=== PATIENT | male | born 1960 | race Caucasian/White ===

== ENCOUNTER 2022-10-22 12:09 | Outpatient (OUT) | payer OTHER, SELFPAY ==
[2022-10-23 04:38] LABS: PSA, Free 1.01 ng/mL; Prostate Specific Ag 5.2 ng/mL (0.0-4.0)
== END 2022-10-22 12:10 ==
LOC: LAB 12:13
PROVIDERS: PCP Family Medicine; Visit Provider Urology
DX: R97.20 Elevated prostate specific antigen [PSA] (principal)
CPT/HCPCS: 36415; 84153; 84154

== ENCOUNTER 2023-03-10 09:59 | Outpatient (OUT) | payer OTHER, SELFPAY ==
[2023-03-10 10:23] LABS: Basophils Percent Auto 0.5 % (0.2-2.0); Eosinophils Absolute Auto 0.1 10^3/uL (0.0-0.7); Eosinophils Percent Auto 1.6 % (0.9-7.0); Hematocrit 46.6 % (42.0-54.0); Hemoglobin 15.3 g/dL (14.0-18.0); Immature Granulocytes Abs Auto 0.05 10^3/uL (0.00-0.03); Immature Granulocytes Pct Auto 0.7 % (0.0-0.5); Lymphocytes Absolute Auto 2.6 10^3/uL (1.2-3.8); Lymphocytes Percent Auto 34.2 % (20.5-60.0); Mean Corpuscular HGB Conc 32.8 g/dL (29.9-35.2); Mean Corpuscular Hemoglobin 30.1 pg (25.9-34.0); Mean Corpuscular Volume 91.7 fL (80.0-94.0); Monocytes Absolute Auto 0.6 10^3/uL (0.3-0.8); Monocytes Percent Auto 8.4 % (1.7-12.0); Neutrophils Absolute Auto 4.1 10^3/uL (1.4-6.5); Neutrophils Percent Auto 54.6 % (43.0-75.0); Platelet Count 241 10^3/uL (150-450); Red Blood Count 5.08 10^6/uL (4.70-6.10); Red Cell Distribution Width 13.2 % (11.0-15.0); White Blood Count 7.5 10^3/uL (4.0-11.0)
[2023-03-10 10:38] LABS: Alanine Aminotransferase 18 U/L (16-63); Albumin Level 3.5 g/dL (3.4-5.0); Alkaline Phosphatase 78 U/L (46-116); Anion Gap 10.2; Aspartate Amino Transferase 12 U/L (15-37); BUN Creatinine Ratio 16.3; Bilirubin Total 0.7 mg/dL (0.2-1.0); Calcium 8.6 mg/dL (8.5-10.1); Carbon Dioxide 28.8 mmol/L (21.0-32.0); Chloride 105 mmol/L (98-107); Chol HDL Ratio 4.3; Cholesterol 260 mg/dL (<=200); Estimated GFR (African America >60 (>=60); Estimated GFR (Non-African Ame >60 (>=60); Globulin 3.6 g/dL; Glucose 93 mg/dL (74-106); HDL Cholesterol 61 mg/dL (40-60); Sodium 140 mmol/L (136-145); Total Protein 7.1 g/dL (6.4-8.2); Triglycerides 112 mg/dL (<=150); VLDL CHOLESTEROL 22.4 mg/dL
[2023-03-10 11:04] LABS: Estimated Average Glucose 100 mg/dL; Glycohemoglobin A1C 5.1 % (4.5-6.2)
[2023-03-10 11:11] LABS: Prostate Specific Antigen Scrn 6.68 ng/mL (<=4.00)
[2023-03-11 07:08] LABS: HIV Ab/p24 Ag Screen Non Reactive (Non Reactive)
[2023-03-11 09:12] LABS: HCV Ab Non Reactive (Non Reactive)
== END 2023-03-10 10:00 | disposition home or self-care (01) ==
LOC: LAB 10:01
PROVIDERS: PCP Nurse Practitioner Primary Care; Visit Provider Nurse Practitioner Primary Care
DX: Z00.00 Encounter for general adult medical examination without abnormal findings (principal); Z11.59 Encounter for screening for other viral diseases; Z13.6 Encounter for screening for cardiovascular disorders; Z12.5 Encounter for screening for malignant neoplasm of prostate
CPT/HCPCS: 36415; 80053; 80061; 83036; 85025; 86803; 87389; G0103

== ENCOUNTER 2023-05-12 11:46 | Outpatient (OUT) | payer OTHER, SELFPAY ==
--- OUTSIDE RECORDS SUMMARY | 2023-05-12 11:50 | XMS_ITS | CCD ---
Author Name Unknown Address [address] [place] [address] Organization [facility] Care Team Providers Care [employer] Player Name Role Phone Daniele Hernandez Primary Care Physician [phone] DO Daniele Hernandez Primary Care Provider MD Cora Lee Attending Provider House DO, Sr Daniele Levy Primary Care Provider [phone] MARY, SR DANIELE Levy Primary Care Unavailable BIANCA MEDRANO Admitting Unavailable BIANCA MEDRANO Attending Unavailable BIANCA MEDRANO Admitting Unavailable BIANCA MEDRANO Attending Unavailable HOUSE, DR FALCON Admitting Unavailable HOUSE, DR FALCON Attending Unavailable HOUSE, DR FALCON Primary Care Unavailable HOUSE, DR FALCON Consulting Unavailable HOUSE, DR FALCON Admitting Unavailable HOUSE, DR FALCON Attending Unavailable HOUSE, DR FALCON Primary Care Unavailable HOUSE, DR FALCON Consulting Unavailable LUE ., CORA Parish Admitting Unavailable LUE ., CORA Parish Attending Unavailable HOUSE, DR FALCON Primary Care Unavailable LUMichael .CORA Consulting Unavailable LUMichael ., CORA Parish Admitting Unavailable LUMichael ., CORA Parish Attending Unavailable HOUSE, DR FALCON Primary Care Unavailable LUMichael ., CORA Parish Consulting Unavailable Mary, Daniele Levy Primary Care Physician Cora Lee Attending Unavailable Cora Lee Attending Unavailable Cora Lee Attending Unavailable Allergies Allergy Classification Reported Allergen(s) Allergy Type Date of Onset Reaction(s) Facility (1 source) No Known Medication Allergies; Translations: [No Known Medication Allergies] Propensity to adverse reactions (disorder) [facility] Repository Medications Current Medications Medication Drug Class(es) Dates Sig (Normalized) Sig (Original) brexpiprazole 0.5 mg oral tablet (1 source) Atypical Antipsychotic Start: 03-08-2020 take 1 tablet by mouth once daily Brexpiprazole (Rexulti) 0.5 mg Tablet Active 0.5 MG PO Daily March 08, 2020 12:00am calcium chloride 0.0014 meq/ml / potassium chloride 0.004 meq/ml / sodium chloride 0.103 meq/ml / sodium lactate 0.028 meq/ml injectable solution (1 source) Start: 03-15-2022 lactated ringers infusion clopidogrel 75 mg oral tablet (8 sources) P2Y12 Platelet Inhibitor Start: 10-12-2017 clopidogrel 75 mg Tab Refills(s) 0 Start Date: 09/14/21 Status: Ordered levoFLOXacin 500 mg oral tablet (1 source) Quinolone Antimicrobial Start: 09-14-2021 End: 10-12-2021 take 1 tablet by mouth once daily Levaquin 500 mg Tab 500 mg = 1 tab(s), Oral, Daily, X 4 week(s), # 28 tab(s), Refills(s) 0, [facility]acy: [id number], 176, cm, 09/14/21 14:27:00 EDT, Height/Length Dosing, 109, kg, 09/14/21 14:27:00 EDT, Weight Dosing Start Date: 09/14/21 Stop Date: 10/12/21 Status: Ordered meloxicam 15 mg oral tablet (8 sources) Nonsteroidal Anti-inflammatory Drug Start: 03-08-2020 meloxicam 15 mg oral tablet Refills(s) 0 Start Date: 09/14/21 Status: Ordered phenylephrine hydrochloride 25 mg/ml ophthalmic solution (1 source) alpha-1 Adrenergic Agonist Start: 03-15-2022 phenylephrine (MYDFRIN) 2.5 % ophthalmic solution 1 drop proparacaine hydrochloride 5 mg/ml ophthalmic solution (1 source) Local Anesthetic Start: 03-15-2022 proparacaine (ALCAINE) 0.5 % ophthalmic solution 1 drop 1000 ml sodium chloride 9 mg/ml injection (10 sources) Start: 03-15-2022 IntraVENous, at 5-250 mL/hr, PRN, if patient receiving piggyback infusions and maintenance fluids are not ordered OR KVO fluids to protect IV site / prevent frequent line interruptions/ long duration, Starting on Tue03/15/22 at 1016 For piggyback infusion, administer at same rate as piggyback for a total of 25 mL. Enter 25 mL into dose field and piggyback rate into rate field of order. If piggyback is infusing at a rate less than 100 mL/hr, enter 25 mL into dose field and 100 mL/hr into rate field of order. For KVO fluids, enter rate of 20 mL/hr or less into rate field of order. Post-op Start: 03-15-2022 take 1 dose intraven ously twice daily 5-40 mL, IntraVENous, EVERY 12 HOURS SCHEDULED (2 times per day), First dose on Tue03/15/22 at 1045, Until Discontinued For Line Patency: Peripheral IV = 5 mL; Midline or Central Line = 10 mL/lumen. If following IV push medication, administer flush at same rate as the IV push. Flush volume is determined by type of infusion therapy being given. For non-viscous solutions use: Peripheral IV = 5 mL Midline or Central Line = 10 mL/lumen For viscous solutions (i.e. blood components, parenteral nutrition, contrast media, or after obtaining blood sample) use: Peripheral IV = 10 mL Midline or Central Line = 20 mL/lumen Post-op Start: 03-15-2022 take 5-40 mL intrave nously once as needed 5-40 mL, IntraVENous, PRN, Starting on Tue03/15/22 at 1016, Until Discontinued, Line Care, After every IV line use For Line Patency: Peripheral IV = 5 mL; Midline or Central Line = 10 mL/lumen. If following IV push medication, administer flush at same rate as the IV push. Flush volume is determined by type of infusion therapy being given. For non-viscous solutions use: Peripheral IV = 5 mL Midline or Central Line = 10 mL/lumen For viscous solutions (i.e. blood components, parenteral nutrition, contrast media, or after obtaining blood sample) use: Peripheral IV = 10 mL Midline or Central Line = 20 mL/lumen Post-op Start: 03-15-2022 0.9 % sodium c hloride infusion Start: 03-15-2022 sodium chlorid e flush 0.9 % injection 5-40 mL tamsulosin hydrochloride 0.4 mg oral capsule (1 source) alpha-Adrenergic Brittney Start: 11-18-2021 take 1 capsule by mouth once daily tamsulosin 0.4 mg Cap 0.4 mg = 1 cap(s), Oral, Daily, # 30 cap(s), Refills(s) 3, [facility]acy: [id number], 176, cm, 11/18/21 10:41:00 EDT, Height/Length Dosing, 109, kg, 11/18/21 10:41:00 EDT, Weight Dosing Start Date: 11/18/21 Status: Ordered tetracaine hydrochloride 5 mg/ml ophthalmic solution (1 source) Marge Local Anesthetic Start: 03-15-2022 tetracaine (TETRAVISC) 0.5 % ophthalmic solution 1 drop tropicamide 10 mg/ml ophthalmic solution (1 source) Anticholinergic Start: 03-15-2022 tropicamide (MYDRIACYL) 1 % ophthalmic solution 1 drop Completed/Discontinued Medications Medication Drug Class(es) Dates Sig (Normalized) Sig (Original) ARIPiprazole 10 mg oral tablet (1 source) Atypical Antipsychotic End: 03-11-2022 take 1 tablet by mouth once daily ARIPiprazole (ABILIFY) 10 MG tablet Take 10 mg by mouth daily 0 03/11/2022 Discontinued (Therapy completed) aspirin 81 mg chewable tablet (1 source) Platelet Aggregation Inhibitor, Nonsteroidal Anti-inflammatory Drug Start: 10-12-2017 End: 03-07-2020 take 81 mg by mouth once daily Aspirin Discontinued 81 MG PO Daily October 12, 2017 12:00am March 07, 2020 12:46pm atorvastatin 20 mg oral tablet (1 source) HMG-CoA Reductase Inhibitor Start: 10-12-2017 End: 03-07-2020 take 20 mg by mouth once daily Atorvastatin Discontinued 20 MG PO Daily October 12, 2017 12:00am March 07, 2020 12:46pm unsure of correct dose benztropine mesylate 1 mg oral tablet (1 source) Anticholinergic, Antihistamine End: 03-11-2022 take 1 tablet by mouth twice daily benztropine (COGENTIN) 1 MG tablet Take 1 mg by mouth 2 times daily 0 03/11/2022 Discontinued (Therapy completed) Problems Problem Classification Problem Date Documented Da te Episodic/Chronic Adjustment disorders (1 source) Adjustment disorder; Translations: [Adjustment disorder, unspecified] 03-07-2020 Chronic Cataract (5 sources) Senile combined form cataract of right eye; Translations: [Combined forms of age-related cataract, right eye] Onset: 09-03-2018 Resolved: 03-15-2022 Chronic Disorders usually diagnosed in infancy, childhood, or adolescence (1 source) Autistic disorder; Translations: [Autistic disorder] 03-07-2020 Chronic Genitourinary symptoms and ill-defined conditions (1 source) Nocturia; Translations: [Nocturia] Onset: 11-18-2021 Episodic Hyperplasia of prostate (6 sources) Benign prostatic hypertrophy without outflow obstruction; Translations: [Benign prostatic hyperplasia without lower urinary tract symptoms] Onset: 12-23-2021 Chronic Inflammatory conditions of male genital organs (1 source) Prostatitis; Translations: [Inflammatory disease of prostate, unspecified] Onset: 11-18-2021 Episodic Other aftercare (5 sources) Long-term current use of drug therapy; Translations: [nursing home (current) use of antithrombotics/ant iplatelets] Onset: 09-14-2021 Episodic Other screening for suspected conditions (not mental disorders or infectious disease) (12 sources) Raised prostate specific antigen; Translations: [Elevated prostate specific antigen [PSA]] Onset: 09-14-2021 Episodic Residual codes; unclassified (5 sources) Family history of cancer; Translations: [Family history of malignant neoplasm of prostate] Onset: 09-14-2021 Episodic Residual codes; unclassified (6 sources) Family history of prostate cancer 09-14-2021 Episodic Residual codes; unclassified (1 source) Family history of malignant neoplasm of prostate; Translations: [FAMILY HX MALIG NEOPLASM PROSTATE] Onset: 04-26-2022 Episodic Unclassified (6 sources) Patient encounter status 09-14-2021 Results Test Name Value Interpretation Reference Range Facility [facility] 11-07-2022 Lab Reports [id number] #1.00CD:127 Normal [facility] Urology Office/Clinic Noteon 10-28-2022 Urology Office/Clinic Note Chief Complaint Pt is here for 6 month w/ PSA HPI Staff Robert is a 62 y.o. male here for 6 month follow up w/ PSA F/T. Previous DX: Elevated PSA, BPH & Family Hx of Prostate Cancer (grandfather) *No Urology Medications. Current PSA 5.2 done on 10/22/22. Previous PSA 5.3 & 14% done on 04/22/22. Dysuria: denies Incomplete bladder emptying: denies Hematuria: denies Frequency: denies Urgency: denies Nocturia: denies Stream: steady stream Leaking: denies Post void dripping: denies Wearing pads/ Depends: denies Urge incontinence: denies Stress incontinence: denies Incontinence without Sensory Awareness: denies Abdominal pain: denies Flank pain: denies Sexual complaints: _ History of Present Illness Tests reviewed: reviewed UA, PSA. I have reviewed the previous health record information and history for this patient from Dr. Lee. I have reviewed and verified the staff HPI to be accurate for this encounter. There have been no associated fever, chills, flank pain, or blood in the urine. Denies any urinary infections since last encounter. Review of Systems PHQ Score Initial Depression Screen Score: 0 ROS - Provider Constitutional: denies weight loss, denies hot flashes. Eyes: denies eye problems. Gastrointestinal: denies nausea, denies vomiting. Cardiovascular: denies chest pain or angina. Integumentary: no dryness Musculoskeletal: denies musculoskeletal symptoms. ENMT: denies otolaryngeal symptoms. Respiratory: no shortness of breath. Heme/Lymph: denies easy bleeding tendency, denies easy bruising tendency. Psychiatric: no confusion, no anxiety. Genitourinary: See HPI. Physical Exam Vitals & Measurements HR: 75(Peripheral) BP: 125/70 HT: 69 in HT: 176 cm WT: 109 kg WT: 239.8 lb BMI: 35.19 General Appearance: alert, no distress, well nourished, well developed male. Genitourinary: Flank Pain: none. Bladder: nonpalpable. Prostate: Mild tenderness. Moderately enlarged, smooth, symmetric, no firm nodules. Assessment/Plan Patient presented today for follow up of elevated PSA. Due to patient's stable PSA, I will order repeat in 6 mths for continued surveillance. 1. Elevated PSA (R97.20: Elevated prostate specific antigen [PSA]) PSA: 08/14/18 - 4.75 08/20/21 - 7.90 10/27/21 - 4.9 & 13.5% free (s/p ABX for prostatitis) 04/22/22 - 5.3 & 14% 10/22/22 - 5.2, no % free calculated yet, waiting on lab [facility] 09/14/21 - 48% Likelihood of prostate cancer upon bx and 21% likelihood of detecting Justine score >7 cancer. MRI of prostate 12/07/21 - No suspicious lesion. Prior prostatitis. BPH. Volume 54 mL. PSA overall elevated but remains stable. Again reviewed options cont monitoring vs systemic bx. Discussed proceeding with bx regardless of MRI if PSA were to cont to rise. Pt elects for monioring. EDMAR today - benign Follow up 6 mos PSA FT or sooner if needed. Pt understands and agrees with plan. -If PSA remains stable at next visit, can stretch out frequency to q1yr. 2. BPH (benign prostatic hyperplasia) (N40.0: Benign prostatic hyperplasia without lower urinary tract symptoms) UA today negative for blood and infection. IPSS 0 (2). Not taking any BPH meds. No urinary complaints or UTIs. Declines further eval/tx at this time 3. Family hx of prostate cancer (Z80.42: Family history of malignant neoplasm of prostate) Grandfather diagnosed at age 80. 4. Antiplatelet or antithrombotic long-term use (Z79.02: manager intermediate (current) use of antithrombotics/anti platelets) Plavix, hx 2v CABG 5 years ago. Elevated risk of periop complications. Needs medical/cardiac clearance for future procedures. Follow-up With When Contact Information Jesus ROD, Cora Gupta, URL, URO Additional Instructions: 6 mos PSA FT Patient Education Prostate Cancer Screening I, Loraine Pedraza, personally scribed for Dr. Lee on 10/27/2022 10:01:06. . Documentation recorded by the scribe, Loraine Pedraza, accurately reflects the services(s) I performed and decisions made by me. Authenticated by Dr. Lee on 10/27/2022 23:12:23. Problem List/Past Medical History Ongoing Antiplatelet or antithrombotic long-term use BPH (benign prostatic hyperplasia) Elevated PSA Family hx of prostate cancer Historical No qualifying data Procedure/Surgical History Appendectomy, Cataract extraction, Placement of stent in cardiac conduit, Tonsillectomy. Medications clopidogrel 75 mg Tab meloxicam 15 mg oral tablet Allergies No Known Medication Allergies Social History Alcohol Beer, 1-2 times per month, 09/14/2021 Tobacco Never (less than 100 in lifetime) Tobacco Use:. Never Smokeless Tobacco Use:., 04/28/2022 Family History Diabetes: Mother. Lung cancer: Father. Immunizations Vaccine Date Status influenza virus vaccine, inactivated 04/01/2022 Recorded SARS-CoV-2 (COVID-19) mRNA-1273 vaccine 04/29/2021 Recorded influenza virus vaccine, (more content not included)... Normal [facility] Comment on above: Result Comment: Elec tronically Signed By: Cora Lee MD\.br\Date and Time Signed: 10/27/22 23:13 EDT\.br\Electronically Co-Signed By: Loraine Pedraza\.br\Date and Time Co-Signed: 10/27/22 10:01 EDT Patient Educationon 10-28-19 Patient Education Oncology Prostate Cancer Screening Prostate cancer screening is testing that is done to check for the presence of prostate cancer in men. The prostate gland is a walnut-sized gland that is located below the bladder and in front of the rectum in males. The function of the prostate is to add fluid to semen during ejaculation. Prostate cancer is one of the most common types of cancer in men. Who should have prostate cancer screening? Screening recommendations vary based on age and other risk factors, as well as between the professional organizations who make the recommendations. In general, screening is recommended if: ? You are age 50 to 70 and have an average risk for prostate cancer. You should talk with your health care provider about your need for screening and how often screening should be done. Because most prostate cancers are slow growing and will not cause , screening in this age group is generally reserved for men who have a 10- to 15-year life expectancy. ? You are younger than age 50, and you have these risk factors: ? Having a father, brother, or uncle who has been diagnosed with prostate cancer. The risk is higher if your family member's cancer occurred at an early age or if you have multiple family members with prostate cancer at an early age. ? Being a male who is Black or is of Jagjit or sub-Saharan descent. In general, screening is not recommended if: ? You are younger than age 40. ? You are between the ages of 40 and 49 and you have no risk factors. ? You are 70 years of age or older. At this age, the risks that screening can cause are greater than the benefits that it may provide. If you are at high risk for prostate cancer, your health care provider may recommend that you have screenings more often or that you start screening at a younger age. How is screening for prostate cancer done? The recommended prostate cancer screening test is a blood test called the prostate-specific antigen (PSA) test. PSA is a protein that is made in the prostate. As you age, your prostate naturally produces more PSA. Abnormally high PSA levels may be caused by: ? Prostate cancer. ? An enlarged prostate that is not caused by cancer (benign prostatic hyperplasia, or BPH). This condition is very common in older men. ? A prostate gland infection (prostatitis) or urinary tract infection. ? Certain medicines such as male hormones (like testosterone) or other medicines that raise testosterone levels. A rectal exam may be done as part of prostate cancer screening to help provide information about the size of your prostate gland. When a rectal exam is performed, it should be done after the PSA level is drawn to avoid any effect on the results. Depending on the PSA results, you may need more tests, such as: ? A physical exam to check the size of your prostate gland, if not done as part of screening. ? Blood and imaging tests. ? A procedure to remove tissue samples from your prostate gland for testing (biopsy). This is the only way to know for certain if you have prostate cancer. What are the benefits of prostate cancer screening? ? Screening can help to identify cancer at an early stage, before symptoms start and when the cancer can be treated more easily. ? There is a small chance that screening may lower your risk of dying from prostate cancer. The chance is small because prostate cancer is a slow-growing cancer, and most men with prostate cancer from a different cause. What are the risks of prostate cancer screening? The main risk of prostate cancer screening is diagnosing and treating prostate cancer that would never have caused any symptoms or problems. This is called overdiagnosisand overtreatment. PSA screening cannot tell you if your PSA is high due to cancer or a different cause. A prostate biopsy is the only procedure to diagnose prostate cancer. Even the results of a biopsy may not tell you if your cancer needs to be treated. Slow-growing prostate cancer may not need any treatment other than monitoring, so diagnosing and treating it may cause unnecessary stress or other side effects. Questions to ask your health care provider ? When should I start prostate cancer screening? ? What is my risk for prostate cancer? ? How often do I need screening? ? What type of screening tests do I need? ? How do I get my test results? ? What do my results mean? ? Do I need treatment? Where to find more information ? The [place] [employer]: www.cancer.org ? [place] [employer]: www.auanet.org Contact a health care provider if: ? You have difficulty urinating. ? You have pain when you urinate or ejaculate. ? You have blood in your urine or semen. ? You have pain in your back or in the area of your prostate. Summary ? Prostate cancer is a common type of cancer in men. The prostate gland is located below the bladder and in front of the rectum. This gland adds flu (more content not included)... Normal [facility] Screenson 10-27-2022 Screens [id number]#1.00CD:127 Normal [facility] Screens [id number]#1.00CD:127 Normal [facility] CBC AUTO DIFFon 07-13-2022 BASO # 0.0 103/ul Normal 0.0-0.1 [facility] Comment on above: Performed By: #### C BC #### [facility] [address] [place], [place] [address] Dr. Jurgen Nunn Basophils/100 WBC (Bld) 0.6 % Normal 0.2-2.0 [facility] Comment on above: Performed By: #### C BC #### [facility] [address] [place], [place] [address] Dr. Jurgen Nunn EO # 0.1 103/ul Normal 0.0-0.7 [facility] Comment on above: Performed By: #### C BC #### [facility] [address] [place] [address] [address] Jurgen Nunn Eosinophils/100 WBC (Bld) 1.4 % Normal 0.9-7.0 [facility] Comment on above: Performed By: #### C BC #### [facility] [address] [place] [address] [address] Jurgen Nunn Erythrocyte distribution width (RBC) [Ratio] 13.3 % Normal 11.0-15.0 [facility] Comment on above: Performed By: #### C BC #### [facility] [address] [place] [address] Dr. Jurgen Nunn Hematocrit (Bld) [Volume fraction] 49.5 % Normal 42.0-54.0 [facility] Comment on above: Performed By: #### C BC #### [facility] [address] [place] [address] Dr. Jurgen Nunn Hemoglobin (Bld) [Mass/Vol] 16.7 g/dL Normal 14.0-18.0 [facility] Comment on above: Performed By: #### C BC #### [facility] [address] [place] [address] Dr. Jurgen Nunn IG # 0.05 10e3/ul Critically high 0.00-0.03 [facility] Comment on above: Performed By: #### C BC #### [facility] [address] [place] [address] Dr. Jurgen Nunn IG % 0.8 % Critically high 0.0-0.5 [facility] Comment on above: Performed By: #### C BC #### [facility] [address] [place] [address] Dr. Jurgen Nunn LYMPH # 2.2 103/ul Normal 1.2-3.8 [facility] Comment on above: Performed By: #### C BC #### [facility] [address] [place] [address] Dr. Jurgen Nunn Lymphocytes/100 WBC (Bld) 34.1 % Normal 20.5-60.0 [facility] Comment on above: Performed By: #### C BC #### [facility] [address] [place] [address] Dr. Jurgen Nunn MANUAL DIFF REQ NO Normal [facility] Comment on above: Performed By: #### C BC #### [facility] [address] [place] [address] Dr. Jurgen Nunn MCH (RBC) [Entitic mass] 29.9 pg Normal 25.9-34.0 [facility] Comment on above: Performed By: #### C BC #### [facility] [address] [place] [address] Dr. Jurgen Nunn MCHC (RBC) [Mass/Vol] 33.7 g/dL Normal 29.9-35.2 [facility] Comment on above: Performed By: #### C BC #### [facility] [address] [place] [address] Dr. Jurgen Nunn MCV (RBC) [Entitic vol] 88.7 fL Normal 80.0-94.0 [facility] Comment on above: Performed By: #### C BC #### [facility] [address] [place] [address] Dr. Jurgen Nunn MONO # 0.6 103/ul Normal 0.3-0.8 [facility] Comment on above: Performed By: #### C BC #### [facility] [address] [place] [address] Dr. Jurgen Nunn Monocytes/100 WBC (Bld) 8.8 % Normal 1.7-12.0 [facility] Comment on above: Performed By: #### C BC #### [facility] [address] [place] [address] Dr. Jurgen Nunn NEUT # 3.5 103/ul Normal 1.4-6.5 [facility] Comment on above: Performed By: #### C BC #### [facility] [address] [place] [address] Dr. Jurgen Nunn Neutrophils/100 WBC (Bld) 54.3 % Normal 43.0-75.0 [facility] Comment on above: Performed By: #### C BC #### [facility] [address] [place] [address] Dr. Jurgen Nunn Platelet mean volume (Bld) [Entitic vol] 10.1 fL Normal 9.5-13.5 [facility] Comment on above: Performed By: #### C BC #### [facility] [address] [place] [address] Dr. Jurgen Nunn PLT 227 103/ul Normal 150-450 [facility] Comment on above: Performed By: #### C BC #### [facility] [address] [place] [address] Dr. Jurgen Nunn RBC 5.58 106/ul Normal 4.70-6.10 [facility] Comment on above: Performed By: #### C BC #### [facility] [address] [place] [address] Dr. Jurgen Nunn WBC 6.5 103/ul Normal 4.0-11.0 [facility] Comment on above: Performed By: #### C BC #### [facility] [address] [place] [address] Dr. Jurgen Nunn PROF 14(COMP METB)on 023 Albumin [Mass/Vol] 3.7 g/dL Normal 3.4-5.0 [facility] Comment on above: Performed By: #### T 4, CMP, TSH #### [facility] [address] [place] [address] Dr. Jurgen Nunn Albumin/Globulin [Mass ratio] 1.0 {ratio} Normal [facility] Comment on above: Performed By: #### T 4, CMP, TSH #### [facility] [address] [place] [address] Dr. Jurgen Nunn ALP [Catalytic activity/Vol] 81 U/L Normal 46-116 [facility] Comment on above: Performed By: #### T 4, CMP, TSH #### [facility] [address] [place] [address] Dr. Jurgen Nunn ALT [Catalytic activity/Vol] 21 U/L Normal 16-63 [facility] Comment on above: Performed By: #### T 4, CMP, TSH #### [facility] [address] [address] [address] Jurgen Nunn Anion gap [Moles/Vol] 9.4 mmol/L Normal [facility] Comment on above: Performed By: #### T 4, CMP, TSH #### [facility] [address] [address] [address] Jurgen Nunn AST [Catalytic activity/Vol] 18 U/L Normal 15-37 [facility] Comment on above: Performed By: #### T 4, CMP, TSH #### [facility] [address] [address] [address] Jurgen Nunn Bilirubin [Mass/Vol] 0.6 mg/dL Normal 0.2-1.0 [facility] Comment on above: Performed By: #### T 4, CMP, TSH #### [facility] [address] [place] [address] Dr. Jurgen Nunn Calcium [Mass/Vol] 9.0 mg/dL Normal 8.5-10.1 [facility] Comment on above: Performed By: #### T 4, CMP, TSH #### [facility] [address] [address] [address] Jurgen Nunn Chloride [Moles/Vol] 107 mmol/L Normal 98-107 [facility] Comment on above: Performed By: #### T 4, CMP, TSH #### [facility] [address] [address] [address] Jurgen Nunn CO2 [Moles/Vol] 29.0 mmol/L Normal 21.0-32.0 [facility] Comment on above: Performed By: #### T 4, CMP, TSH #### [facility] [address] [address] [address] Jurgen Nunn Creatinine [Mass/Vol] 1.02 mg/dL Normal 0.70-1.30 [facility] Comment on above: Performed By: #### T 4, CMP, TSH #### [facility] [address] [address] [address] Jurgen Nunn EGFR-AF TRINIDADIAN >60 Normal >=60 [facility] Comment on above: Performed By: #### T 4, CMP, TSH #### [facility] [address] [address] [address] Jurgen Nunn EGFR-NON AF TRINIDADIAN >60 Normal >=60 [facility] Comment on above: Performed By: #### T 4, CMP, TSH #### [facility] [address] [address] [address] Jurgen Nunn Globulin (S) [Mass/Vol] 3.6 g/dL Normal [facility] Comment on above: Performed By: #### T 4, CMP, TSH #### [facility] [address] [place] [address] Dr. Jurgen Nunn Glucose [Mass/Vol] 100 mg/dL Normal 74-106 [facility] Comment on above: Performed By: #### T 4, CMP, TSH #### [facility] [address] [place] [address] Dr. Jurgen Nunn Potassium [Moles/Vol] 4.4 mmol/L Normal 3.5-5.1 [facility] Comment on above: Performed By: #### T 4, CMP, TSH #### [facility] [address] [place] [address] Dr. Jurgen Nunn Protein [Mass/Vol] 7.3 g/dL Normal 6.4-8.2 [facility] Comment on above: Performed By: #### T 4, CMP, TSH #### [facility] [address] [place] [address] Dr. Jurgen Nunn Sodium [Moles/Vol] 141 mmol/L Normal 136-145 [facility] Comment on above: Performed By: #### T 4, CMP, TSH #### [facility] [address] [place] [address] Dr. Jurgen Nunn Urea nitrogen [Mass/Vol] 13.0 mg/dL Normal 7.0-18.0 [facility] Comment on above: Performed By: #### T 4, CMP, TSH #### [facility] [address] [place] [address] Dr. Jurgen Nunn Urea nitrogen/Creatinine [Mass ratio] 12.7 mg/mg Normal [facility] Comment on above: Performed By: #### T 4, CMP, TSH #### [facility] [address] [address] [address] Jurgen Nunn T4on 07-13-2022 T4 [Mass/Vol] 9.50 ug/dL Normal 4.50-12.[address] [facility] Comment on above: Performed By: #### T 4, CMP, TSH #### [facility] [address] [address] [address] Jurgen Nunn TSHon 07-13-2022 TSH 1.890 uIU/mL Normal 0.358-3.[address] [facility] Comment on above: Performed By: #### T 4, CMP, TSH #### [facility] [address] [address] [address] Jurgen Nunn PSA, FREE AND TOTAL RATIOon 04-23-2022 % Free PSA 14.0 % Normal [facility] Comment on above: Result Comment: The table below lists the probability of prostate cancer for men with non-suspicious EDMAR results and total PSA between 4 and 10 ng/mL, by patient age (Marcell et al, JAROD 1998, 279:1542). % Free PSA 50-64 yr 65-75 yr 0.00-10.00% 56% 55% 10.01-15.00% 24% 35% 15.01-20.00% 17% 23% 20.01-25.00% 10% 20% >25.00% 5% 9% Please note: Marcell et al did not make specific recommendations regarding the use of percent free PSA for any other population of men. Performed By: #### P SAFREE #### [facility] [address] [address] [address] Jurgen Nunn Prostate specific Ag [Mass/Vol] 5.3 ng/mL Critically high 0.0-4.0 [facility] Comment on above: Result Comment: Sylvester rodriguez ECLIA methodology. . According to the [place] [employer], Serum PSA should decrease and remain at undetectable levels after radical prostatectomy. The AUA defines biochemical recurrence as an initial PSA value 0.2 ng/mL or greater followed by a subsequent confirmatory PSA value 0.2 ng/mL or greater. Values obtained with different assay methods or kits cannot be used interchangeably. Results cannot be interpreted as absolute evidence of the presence or absence of malignant disease. Performed By: #### P SAFREE #### [facility] [address] [address] [address] Jurgen Nunn PSA, Free 0.74 ng/mL Normal N/A [facility] Comment on above: Result Comment: Sylvester LOWE methodology. Performed By: #### P SAFREE #### [facility] [address] [address] [address] Jurgen Nunn MR prostate wo/w conon 12-10 MR prostate wo/w con [facility] [place] [address] MRI Report Signed Patient: Robert Smiley MR#: [id number] : 1960 Acct:[id number] Age/Sex: 61 / M ADM Date: 12/07/21 Loc: Room: Type: [facility] Attending Dr: Cora Lee MD Copies to: Cora Lee MD Ordering Provider: Cora Lee MD Date of Service: 12/07/21 MR/MR prostate wo/w con: Z80.42,N41.9,R97.20 EXAMINATION: MR prostate wo/w con HISTORY: Elevated PSA. COMPARISON: NONE TECHNIQUE: Multiparametric imaging of the prostate gland was performed with IV contrast. FINDINGS: Prostate Dimensions: 4.8 x 3.9 x 5.5 cm. Prostate Volume: 54 mL Peripheral Zone: Heterogenous inT2 signal suggestive of prior prostatitis. No suspicious T2 or ADC map abnormality is identified to suggest prostate malignancy. Central/Transitional Zone: BPH changes. Seminal Vesicles: Unremarkable Neurovascular bundles: Unremarkable. Lymphadenopathy: No evidence of lymphadenopathy. Bladder: No focal lesion. Bowel: The visualized bowel is without acute abnormality. Peritoneal Cavity: No free fluid. Bones: No suspicious bony lesion. MR/MR prostate wo/w con IMPRESSION: No MRI evidence of prostate malignancy. BPH changes. Impression dictated by: Bjorn Putnam Jr., D.O.12/10/2021 11:14 AM Dictation Location: [place] [address] Transcribed By: [facility] [place] 12/10/21 1114 Dictated By: Bjorn Putnam Jr, DO 12/10/21 1109 Signed By: 12/10/21 1114 [facility] Creatinine (Bld) [Mass/Vol]O rdered By: Cora Lee on 12-07-2021 Creatinine [Mass/Vol] 1.0 mg/dL 0.6-1.3 [facility] Comment on above: ER/ESD physician is notified/shown all ISTAT results. Critical values may be confirmed by laboratory testing if deemed necessary by ER attending doctor. ISTAT XRay CREon 12-07-2021 Creatinine [Mass/Vol] 1.0 mg/dL Normal 0.6-1.3 [facility] Comment on above: Result Comment: ER/E SD physician is notified/shown all ISTAT results. Critical values may be confirmed by laboratory testing if deemed necessary by ER attending doctor. Performed By: #### I SCRE #### [address] Point of Care testing , ISTAT GFR ( > 60 Normal [facility] Comment on above: Result Comment: GFR estimated reference range: According to KDOQI guidelines, <60 ml/min/1.73m2 is sufficient to diagnose a patient with chronic kidney disease. PERFORMED BY: [place] [address] PATHOLOGIST [employer] ANNE MCFARLAND M.D. Performed By: #### I SCRE #### [address] Point of Care testing , ISTAT GFR (Non- Am > 60 [facility] Comment on above: Performed By: #### I SCRE #### [address] Point of Care testing , No Panel InformationOrdered By: Cora Lee on 12-07-2021 POC Estimated GFR > 60 [facility] Comment on above: GFR estimated refere nce range: According to KDOQI guidelines, <60 ml/min/1.73m2 is sufficient to diagnose a patient with chronic kidney disease. POC Estimated GFR Non- Amer > 60 [facility] PSA, FREE AND TOTAL RATIOon 10-29-2021 % Free PSA 13.5 % Normal [facility] Comment on above: Result Comment: The table below lists the probability of prostate cancer for men with non-suspicious EDMAR results and total PSA between 4 and 10 ng/mL, by patient age (Marcell et al, JAROD 1998, 279:1542). % Free PSA 50-64 yr 65-75 yr 0.00-10.00% 56% 55% 10.01-15.00% 24% 35% 15.01-20.00% 17% 23% 20.01-25.00% 10% 20% >25.00% 5% 9% Please note: Marcell et al did not make specific recommendations regarding the use of percent free PSA for any other population of men. Performed By: #### P SAFREE #### [facility] [address] [address] [address] Jurgen Nunn Prostate specific Ag [Mass/Vol] 4.9 ng/mL Critically high 0.0-4.0 [facility] Comment on above: Result Comment: Roch michael ECLIA methodology. . According to the [place] [employer], Serum PSA should decrease and remain at undetectable levels after radical prostatectomy. The AUA defines biochemical recurrence as an initial PSA value 0.2 ng/mL or greater followed by a subsequent confirmatory PSA value 0.2 ng/mL or greater. Values obtained with different assay methods or kits cannot be used interchangeably. Results cannot be interpreted as absolute evidence of the presence or absence of malignant disease. Performed By: #### P SAFREE #### [facility] [address] [address] [address] Jurgen Nunn PSA, Free 0.66 ng/mL Normal N/A [facility] Comment on above: Result Comment: Roch e ECLIA methodology. Performed By: #### P SAFREE #### [facility] [address] [address] [address] Jurgen Nunn CBC AUTO DIFFon 08-20-2021 BASO # 0.0 103/ul Normal 0.0-0.1 [facility] Comment on above: Performed By: #### C BC #### [facility] [address] [address] [address] Jurgen Nunn Basophils/100 WBC (Bld) 0.4 % Normal 0.2-2.0 [facility] Comment on above: Performed By: #### C BC #### [facility] [address] [address] [address] Jurgen Nunn EO # 0.1 103/ul Normal 0.0-0.7 [facility] Comment on above: Performed By: #### C BC #### [facility] [address] [address] [address] Jurgen Nunn Eosinophils/100 WBC (Bld) 1.5 % Normal 0.9-7.0 [facility] Comment on above: Performed By: #### C BC #### [facility] [address] [address] [address] Jurgen Nunn Erythrocyte distribution width (RBC) [Ratio] 13.3 % Normal 11.0-15.0 [facility] Comment on above: Performed By: #### C BC #### [facility] [address] [address] [address] Jurgen Nunn Hematocrit (Bld) [Volume fraction] 49.4 % Normal 42.0-54.0 [facility] Comment on above: Performed By: #### C BC #### [facility] [address] [address] [address] Jurgen Nunn Hemoglobin (Bld) [Mass/Vol] 16.7 g/dL Normal 14.0-18.0 [facility] Comment on above: Performed By: #### C BC #### [facility] [address] [address] [address] Jurgen Nunn IG # 0.06 10e3/ul Critically high 0.00-0.03 [facility] [place] Comment on above: Performed By: #### C BC #### [facility] [address] [address] [address] Jurgen Nunn IG % 0.8 % Critically high 0.0-0.5 [facility] Comment on above: Performed By: #### C BC #### [facility] [address] [place] [address] Dr. Jurgen Nunn LYMPH # 2.5 103/ul Normal 1.2-3.8 [facility] Comment on above: Performed By: #### C BC #### [facility] [address] [place] [address] Dr. Jurgen Nunn Lymphocytes/100 WBC (Bld) 35.1 % Normal 20.5-60.0 [facility] Comment on above: Performed By: #### C BC #### [facility] [address] [place] [address] Dr. Jurgen Nunn MANUAL DIFF REQ NO Normal [facility] Comment on above: Performed By: #### C BC #### [facility] [address] [place] [address] Dr. Jurgen Nunn MCH (RBC) [Entitic mass] 30.0 pg Normal 25.9-34.0 [facility] Comment on above: Performed By: #### C BC #### [facility] [address] [place] [address] Dr. Jurgen Nunn MCHC (RBC) [Mass/Vol] 33.8 g/dL Normal 29.9-35.2 [facility] Comment on above: Performed By: #### C BC #### [facility] [address] [place] [address] Dr. Jurgen Nunn MCV (RBC) [Entitic vol] 88.7 fL Normal 80.0-94.0 [facility] Comment on above: Performed By: #### C BC #### [facility] [address] [place] [address] Dr. Jurgen Nunn MONO # 0.6 103/ul Normal 0.3-0.8 [facility] Comment on above: Performed By: #### C BC #### [facility] [address] [place] [address] Dr. Jurgen Nunn Monocytes/100 WBC (Bld) 7.7 % Normal 1.7-12.0 [facility] Comment on above: Performed By: #### C BC #### [facility] [address] [address] [address] Jurgen Nunn NEUT # 3.9 103/ul Normal 1.4-6.5 [facility] Comment on above: Performed By: #### C BC #### [facility] [address] [address] [address] Jurgen Nunn Neutrophils/100 WBC (Bld) 54.5 % Normal 43.0-75.0 [facility] Comment on above: Performed By: #### C BC #### [facility] [address] [address] [address] Jurgen Nunn Platelet mean volume (Bld) [Entitic vol] 10.6 fL Normal 9.5-13.5 [facility] Comment on above: Performed By: #### C BC #### [facility] [address] [place] [address] Dr. Jurgen Nunn PLT 246 103/ul Normal 150-450 [facility] Comment on above: Performed By: #### C BC #### [facility] [address] [place] [address] Dr. Jurgen Nunn RBC 5.57 106/ul Normal 4.70-6.10 [facility] Comment on above: Performed By: #### C BC #### [facility] [address] [place] [address] Dr. Jurgen Nunn WBC 7.2 103/ul Normal 4.0-11.0 [facility] Comment on above: Performed By: #### C BC #### [facility] [address] [place] [address] Dr. Jurgen Nunn LIPID PROFILEon 08-20-2021 CHOL-HDL RATIO NORM SEE BELOW Normal [facility] Comment on above: Result Comment: 3.3 - 4.4 LOW RISK 4.4 - 7.1 AVERAGE RISK 7.1 - 11.0 MODERATE RISK >11.0 HIGH RISK Performed By: #### C MP, LIPID #### [facility] [address] [place] [address] Dr. Jurgen Nunn Cholesterol [Mass/Vol] 281 mg/dL Critically high <=200 [facility] Comment on above: Performed By: #### C MP, LIPID #### [facility] [address] [address] [address] Jurgen Nunn Cholesterol in HDL [Mass/Vol] 66 mg/dL Critically high 40-60 [facility] Comment on above: Performed By: #### C MP, LIPID #### [facility] [address] [address] [address] Jurgen Nunn Cholesterol in LDL [Mass/Vol] 196.2 mg/dL Normal [facility] Comment on above: Performed By: #### C MP, LIPID #### [facility] [address] [place] [address] Dr. Jurgen Nunn Cholesterol.total/Chol esterol in HDL [Mass ratio] 4.3 {ratio} Normal [facility] Comment on above: Performed By: #### C MP, LIPID #### [facility] [address] [address] [address] Jurgen Nunn HDL NORMAL > or = 60 mg/dl - LOW CARDIOVASCULAR RISK <40 mg/dl - HIGH CARDIOVASCULAR RISK Normal [facility] Comment on above: Performed By: #### C MP, LIPID #### [facility] [address] [place] [address] Dr. Jurgen Nunn LDL CALC NORMAL SEE BELOW Normal [facility] Comment on above: Result Comment: <100 mg/dl OPTIMAL 100 - 129 mg/dl NEAR OR ABOVE OPTIMAL 130 - 159 mg/dl BORDERLINE HIGH 160 - 189 mg/dl HIGH >190 mg/dl VERY HIGH Performed By: #### C MP, LIPID #### [facility] [address] [place] [address] Dr. Jurgen Nunn Triglyceride [Mass/Vol] 94 mg/dL Normal <=150 [facility] Comment on above: Performed By: #### C MP, LIPID #### [facility] [address] [place] [address] Dr. Jurgen Nunn VLDL CALC 18.8 mg/dL Normal [facility] Comment on above: Performed By: #### C MP, LIPID #### [facility] [address] [place] [address] Dr. Jurgen Nunn PROF 14(COMP METB)on 022 Albumin [Mass/Vol] 3.7 g/dL Normal 3.4-5.0 [facility] Comment on above: Performed By: #### C MP, LIPID #### [facility] [address] [address] [address] Jurgen Nunn Albumin/Globulin [Mass ratio] 0.9 {ratio} Normal [facility] Comment on above: Performed By: #### C MP, LIPID #### [facility] [address] [place] [address] Dr. Jurgen Nunn ALP [Catalytic activity/Vol] 89 U/L Normal 46-116 [facility] Comment on above: Performed By: #### C MP, LIPID #### [facility] [address] [place] [address] Dr. Jurgen Nunn ALT [Catalytic activity/Vol] 25 U/L Normal 16-63 [facility] Comment on above: Performed By: #### C MP, LIPID #### [facility] [address] [place] [address] Dr. Jurgen Nunn Anion gap [Moles/Vol] 14.3 mmol/L Normal [facility] Comment on above: Performed By: #### C MP, LIPID #### [facility] [address] [place] [address] Dr. Jurgen Nunn AST [Catalytic activity/Vol] 16 U/L Normal 15-37 [facility] Comment on above: Performed By: #### C MP, LIPID #### [facility] [address] [place] [address] Dr. Jurgen Nunn Bilirubin [Mass/Vol] 0.6 mg/dL Normal 0.2-1.3 [facility] Comment on above: Performed By: #### C MP, LIPID #### [facility] [address] [address] [address] Jurgen Nunn Calcium [Mass/Vol] 8.6 mg/dL Normal 8.5-10.1 [facility] Comment on above: Performed By: #### C MP, LIPID #### [facility] [address] [address] [address] Jurgen Nunn Chloride [Moles/Vol] 105 mmol/L Normal 98-107 [facility] Comment on above: Performed By: #### C MP, LIPID #### [facility] [address] [place] [address] Dr. Jurgen Nunn CO2 [Moles/Vol] 24.7 mmol/L Normal 22.0-30.0 [facility] Comment on above: Performed By: #### C MP, LIPID #### [facility] [address] [place] [address] Dr. Jurgen Nunn Creatinine [Mass/Vol] 0.97 mg/dL Normal 0.66-1.25 [facility] Comment on above: Performed By: #### C MP, LIPID #### [facility] [address] [place] [address] Dr. Jurgen Nunn EGFR-AF TRINIDADIAN >60 Normal >=60 [facility] Comment on above: Performed By: #### C MP, LIPID #### [facility] [address] [place] [address] Dr. Jurgen Nunn EGFR-NON AF TRINIDADIAN >60 Normal >=60 [facility] Comment on above: Performed By: #### C MP, LIPID #### [facility] [address] [place] [address] Dr. Jurgen Nunn Globulin (S) [Mass/Vol] 4.0 g/dL Normal [facility] Comment on above: Performed By: #### C MP, LIPID #### [facility] [address] [place] [address] Dr. Jurgen Nunn Glucose [Mass/Vol] 91 mg/dL Normal 74-106 [facility] Comment on above: Performed By: #### C MP, LIPID #### [facility] [address] [place] [address] Dr. Jurgen Nunn Potassium [Moles/Vol] 4.0 mmol/L Normal 3.4-5.0 [facility] Comment on above: Performed By: #### C MP, LIPID #### [facility] [address] [place] [address] Dr. Jurgen Nunn Protein [Mass/Vol] 7.7 g/dL Normal 6.1-8.2 [facility] Comment on above: Performed By: #### C MP, LIPID #### [facility] [address] [address] [address] Jurgen Nunn Sodium [Moles/Vol] 140 mmol/L Normal 137-145 [facility] Comment on above: Performed By: #### C MP, LIPID #### [facility] [address] [address] [address] Jurgen Nunn Urea nitrogen [Mass/Vol] 19.0 mg/dL Critically high 7.0-18.0 [facility] Comment on above: Performed By: #### C MP, LIPID #### [facility] [address] [place] [address] Dr. Jurgen Nunn Urea nitrogen/Creatinine [Mass ratio] 19.6 mg/mg Normal [facility] Comment on above: Performed By: #### C MP, LIPID #### [facility] [address] [place] [address] Dr. Jurgen Nunn CBC W/DIFFon 04-25-2018 ABS BASOPHILS 0.0 10*3/uL Normal 0.0-0.2 [facility] Comment on above: Performed By: #### 5 0103 #### [facility] [place] [address] ABS IMM GRANS 0.0 10*3/uL Normal 0.0-0.2 [facility] Comment on above: Performed By: #### 5 0103 #### [facility] [place] [address] [place] [address], [facility] ABS NEUTROPHILS 3.6 10*3/uL Normal 1.6-7.6 [facility] Comment on above: Performed By: #### 5 0103 #### [facility] [place] [address] [place] [address], [facility] Basophils/100 WBC (Bld) 0.5 % Normal 0.0-1.0 [facility] Comment on above: Performed By: #### 5 0103 #### [facility] [place] [address] [place] [address], [facility] Eosinophils (Bld) [#/Vol] 0.1 10*3/uL Normal 0.0-0.5 [facility] Comment on above: Performed By: #### 5 0103 #### [facility] [place] [address] [place] [address], [facility] Eosinophils/100 WBC (Bld) 1.2 % Normal 0.0-6.0 [facility] Comment on above: Performed By: #### 5 0103 #### [facility] [place] [address] [facility] [address] Erythrocyte distribution width (RBC) [Ratio] 13.2 % Normal 11.5-15.0 [facility] Comment on above: Performed By: #### 5 0103 #### [facility] [place] [address] [facility] [address] Hematocrit (Bld) [Volume fraction] 48.4 % Normal 39.0-50.0 [facility] Comment on above: Performed By: #### 5 0103 #### [facility] [place] [address] [facility] [address] Hemoglobin (Bld) [Mass/Vol] 16.1 g/dL Normal 13.0-17.0 [facility] Comment on above: Performed By: #### 5 0103 #### [facility] [place] [address] [facility] [address] IMMATURE GRANS 0.7 % Normal 0.0-1.0 [facility] Comment on above: Performed By: #### 5 3 #### [facility] [place] [address] [place] [address], [facility] Lymphocytes (Bld) [#/Vol] 1.5 10*3/uL Normal 1.2-4.0 [facility] Comment on above: Performed By: #### 5 0103 #### [facility] [place] [address] [facility] [place] [address], [facility] Lymphocytes/100 WBC (Bld) 25.9 % Normal 20.0-45.0 [facility] Comment on above: Performed By: #### 5 3 #### [facility] [place] [address] [place] [address], [facility] MCH (RBC) [Entitic mass] 29.8 pg Normal 27.0-33.0 [facility] Comment on above: Performed By: #### 5 3 #### [facility] [place] [address] [facility] [place] [place] [address], [facility] MCHC (RBC) [Mass/Vol] 33.3 g/dL Normal 32.0-35.0 [facility] Comment on above: Performed By: #### 5 3 #### [facility] [place] [address] [place] [address], [facility] MCV (RBC) [Entitic vol] 89.6 fL Normal 82.0-98.0 [facility] Comment on above: Performed By: #### 5 3 #### [facility] [place] [address] [place] [address], [facility] Monocytes (Bld) [#/Vol] 0.5 10*3/uL Normal 0.1-1.0 [facility] Comment on above: Performed By: #### 5 3 #### [facility] [place] [address] [facility] [place] [place] [address], [facility] MONOS 9.3 % Normal 5.0-12.0 [facility] Comment on above: Performed By: #### 5 3 #### [facility] [place] [address] [place] [address], [facility] Neutrophils/100 WBC (Bld) 62.4 % Normal 40.0-72.0 [facility] Comment on above: Performed By: #### 5 3 #### [facility] [place] [address] [facility] [place] [address], [facility] Nucleated RBC/100 WBC (Bld) [Ratio] 0 % Normal 0-[address] [facility] Comment on above: Performed By: #### 102 #### [facility] [place] [address] [place] [address], [facility] PLAT CNT 230 10*3/uL Normal 150-400 [facility] Comment on above: Performed By: #### 102 #### [facility] [place] [address] [place] [address], [facility] RBC (Bld) [#/Vol] 5.40 10*6/uL Normal 4.20-5.70 The [facility] Comment on above: Performed By: #### 102 #### [facility] [place] [address] [facility] [place] [place] [address], [facility] WBC (Bld) [#/Vol] 5.83 10*3/uL Normal 4.00-10.60 [facility] Comment on above: Performed By: #### 102 #### [facility] [place] [address] [facility] [place] [place] [address], [facility] COMP METABOLIC PANELon 04-25 Albumin [Mass/Vol] 4.3 g/dL Normal 3.5-5.7 [facility] Comment on above: Performed By: #### 0 012, [id number] #### [facility] [place] [address] [facility] [place] [place] [address], [facility] ALKALINE PHOSPH 86 IU/L Normal 34-104 [facility] Comment on above: Performed By: #### 0 012, 47455 #### [facility] [place] [address] ALT [Catalytic activity/Vol] 18 U/L Normal 7-52 [facility] Comment on above: Performed By: #### 0 0121, 11315 #### [facility] [place] [address] [place] [address], [place] AST [Catalytic activity/Vol] 18 U/L Normal 13-39 [facility] Comment on above: Performed By: #### 0 012, 37978 #### [facility] [place] [address] [place] [address], [place] Bilirubin [Mass/Vol] 0.8 mg/dL Normal 0.3-1.0 [facility] Comment on above: Performed By: #### 0 012, 27652 #### [facility] [place] [address] [place] [address], [place] Calcium [Mass/Vol] 9.6 mg/dL Normal 8.6-10.3 [facility] Comment on above: Performed By: #### 0 012, 36100 #### [facility] [place] [address] [place] [address], [place] Chloride [Moles/Vol] 103 mmol/L Normal 98-107 [facility] Comment on above: Performed By: #### 0 012, 81092 #### [facility] [place] [address] [place] [address], [place] CO2 [Moles/Vol] 31 mmol/L Normal 21-31 [facility] Comment on above: Performed By: #### 0 012, 28323 #### [facility] [place] [address] [place] [address], [place] Creatinine [Mass/Vol] 1.06 mg/dL Normal 0.70-1.30 [facility] Comment on above: Performed By: #### 0 012, 68400 #### [facility] [place] [address] [place] [address], [place] GFR/1.73 sq M predicted among blacks MDRD (S/P/Bld) [Vol rate/Area] mL/min/{1.73_m2} Normal >60 [facility] Comment on above: Performed By: #### 0 012, 18851 #### [facility] [place] [address] [place] [address], [facility] GFR/1.73 sq M predicted among non-blacks MDRD (S/P/Bld) [Vol rate/Area] mL/min/{1.73_m2} Normal >60 [facility] Comment on above: Performed By: #### 0 012, 90026 #### [facility] [place] [address] [place] [address], [place] Glucose [Mass/Vol] 101 mg/dL High 70-100 [facility] Comment on above: Performed By: #### 0 012, 08266 #### [facility] [place] [address] [place] [address], [place] Potassium [Moles/Vol] 4.3 mmol/L Normal 3.5-5.1 [facility] Comment on above: Performed By: #### 0 012, 77240 #### [facility] [place] [address] [place] [address], [place] Protein [Mass/Vol] 7.2 g/dL Normal 6.0-8.3 [facility] Comment on above: Performed By: #### 0 012, 90677 #### [facility] [place] [address] [place] [address], [place] Sodium [Moles/Vol] 138 mmol/L Normal 136-145 [facility] Comment on above: Performed By: #### 0 0121, 96750 #### [facility] [place] [address] [place] [address], [place] Urea nitrogen [Mass/Vol] 12 mg/dL Normal 7-25 [facility] Comment on above: Performed By: #### 0 0121, 97240 #### [facility] [place] [address] [place] [address], [facility] LIPID PROFILEon 04-25-2018 Cholesterol [Mass/Vol] 143 mg/dL Normal 120-200 Th e [facility] Comment on above: Result Comment: CHOL ESTEROL REFERENCE RANGE: 20 YEARS AND OLDER CARDIOVASCULAR RISK Less than 200 mg/dl Low Risk 200 to 239 mg/dl Borderline Risk 240 mg/dl and greater High Risk Performed By: #### 0 0121, 11298 #### [facility] [place] [address] [facility] [place] [address], [facility] Cholesterol in HDL [Mass/Vol] 57 mg/dL Normal 23-92 [facility] Comment on above: Result Comment: Slig ht variation in normal range could be due to gender and/or age. HDL CHOLESTEROL REFERENCE RANGE: 20 years and older Cardiovascular Risk > or =60 mg/dL Desirable 40 TO 59 mg/dL Low Risk <40 mg/dL High Risk Performed By: #### 0 0121, 78851 #### [facility] [place] [address] [facility] [place] [place] [address], [facility] Cholesterol in LDL [Mass/Vol] 72 mg/dL Normal 0-130 [facility] Comment on above: Result Comment: LDL IS A CALCULATION LDL IS ONLY VALID IF THE TRIG IS LESS THAN 400. Performed By: #### 0 0121, 25291 #### [facility] [place] [address] [facility] [place] [address], [facility] Cholesterol.total/Chol esterol in HDL [Mass ratio] 2.5 {ratio} Normal .0-4.[address] [facility] Comment on above: Performed By: #### 0 0121, 79674 #### [facility] [place] [address] [place] [address], [facility] NON-HDL CHOLESTEROL 86 mg/dL Normal [facility] Comment on above: Performed By: #### 0 0121, 34224 #### [facility] [place] [address] [place] [address], [facility] Triglyceride [Mass/Vol] 71 mg/dL Normal 40-149 [facility] Comment on above: Result Comment: TRIG LYCERIDE REFERENCE RANGE: 20 YEARS AND OLDER CARDIOVASCULAR RISK LESS THAN 150 mg/dl LOW RISK 150 TO 199 mg/dl BORDERLINE RISK 200 mg/dl AND GREATER HIGH RISK Performed By: #### 0 0121, 24588 #### [facility] [place] [address] [place] [address], [facility] VLDL CHOL 14 mg/dL Normal 0-40 [facility] Comment on above: Performed By: #### 0 0121, 72337 #### [facility] [place] [address] [place] [address], [facility] Vital Signs Date Time Vital Sign Value Performing Clinician Yohana trimble 10-27-2022 09:33-0400 Blood Pressure Location Cora Lue [facility] 10-27-2022 09:33-0400 Diastolic blood pressure 70 mm[Hg] Cora Lue [facility] 10-27-2022 09:33-0400 Heart rate 75 /min Cora Lue [facility] 10-27-2022 09:33-0400 Systolic blood pressure 125 mm[Hg] Cora Lue [facility] 04-28-2022 11:20-0500 Blood Pressure Location Cora Lue [facility] 04-28-2022 11:20-0500 Diastolic blood pressure 76 mm[Hg] Cora Lue [facility] 04-28-2022 11:20-0500 Heart rate 68 /min Cora Lue [facility] 04-28-2022 11:20-0500 Respiratory rate 16 /min Cora Lue [facility] 04-28-2022 11:20-0500 Systolic blood pressure 128 mm[Hg] Cora Danielse [facility] 03-15-2022 10:30-0400 Diastolic blood pressure 66 mm[Hg] Bianca Medrano DO Work Phone: [facility] 03-15-2022 10:30-0400 Heart rate 70 /min Bianca Medrano DO Work Phone: [facility] [employer] 03-15-2022 10:30-0400 Respiratory rate 18 /min Bianca Medrano DO Work Phone: [facility] [employer] 03-15-2022 10:30-0400 SaO2% (BldA) [Mass fraction] 96 % Bianca Medrano DO Work Phone: [facility] 03-15-2022 10:30-0400 Systolic blood pressure 113 mm[Hg] Bianca Medrano DO Work Phone: [facility] 03-15-2022 10:10-0400 Body temperature 97.2 [degF] Bianca Medrano DO Work Phone: [facility] 03-15-2022 09:00-0400 Body height 175.3 cm Bianca Medrano DO Work Phone: [facility] 03-15-2022 09:00-0400 Body mass index (BMI) [Ratio] 35.59 kg/m2 Bainca Medrano DO Work Phone: [facility] 03-15-2022 09:00-0400 Body weight 109.32 kg Bianca Medrano DO Work Phone: [facility] 12-23-2021 08:06-0400 Blood Pressure Location Cora Lee [facility] 12-23-2021 08:06-0400 Diastolic blood pressure 134 mm[Hg] Cora Lue [facility] 12-23-2021 08:06-0400 Heart rate 98 /min Cora Lue [facility] 12-23-2021 08:06-0400 Systolic blood pressure 149 mm[Hg] Cora Lue [facility] 11-18-2021 10:40-0400 Blood Pressure Location Cora Lue [facility] 11-18-2021 10:40-0400 Diastolic blood pressure 72 mm[Hg] Cora Lue [facility] 11-18-2021 10:40-0400 Heart rate 68 /min Cora Lue [facility] 11-18-2021 10:40-0400 Systolic blood pressure 127 mm[Hg] Cora Lue [facility] 09-14-2021 14:21-0400 Blood Pressure Location Cora Lue [facility] 09-14-2021 14:21-0400 Diastolic blood pressure 78 mm[Hg] Cora Lue [facility] [facility] 09-14-2021 14:21-0400 Heart rate 72 /min Cora Danielse [facility] 09-14-2021 14:21-0400 Respiratory rate 16 /min Cora Lue [facility] 09-14-2021 14:21-0400 Systolic blood pressure 123 mm[Hg] Cora Lue [facility] Encounters Encounter Date Encounter Type Care Provider Facility Start: 05-25-2023 ambulatory Cora M. Lue Facility:[facility] [place] Start: 05-04-2023 End: 05-05-2023 ambulatory Cora M. Lue Facility:[facility] Start: 05-04-2023 End: 05-04-2023 Patient encounter procedure Cora M. Lue [facility] Start: 10-27-2022 End: 10-28-2022 ambulatory Cora M. Lue Facility:[facility] [place] Start: 10-27-2022 End: 10-27-2022 Patient encounter procedure Cora M. Lue [facility] Start: 07-18-2022 Encounter for genera l adult medical examination without abnormal findings DR DANIELE HERNANDEZ [facility] Start: 07-13-2022 End: 07-14-[address] DANIELE HERNANDEZ Facility:[facility] Start: 07-13-2022 End: 07-14-2022 Encounter for general adult medical examination without abnormal findings DR DANIELE HERNANDEZ Facility:[facility] Start: 04-28-2022 End: 04-28-2022 Patient encounter procedure Cora M. Lue [facility] Start: 04-22-2022 End: 04-23-2022 ambulatory CORA LEE . Facility:[facility] Start: 03-15-2022 End: 03-15-2022 ambulatory SR DANIELE HERNANDEZ [facility] Start: 03-15-2022 End: 03-15-2022 Subsequent hospital visit by physician Bianca Medrano DO Work Phone: [facility] Start: 03-05-2022 ambulatory BIANCA MEDRANO [facility] Start: 12-23-2021 End: 12-23-2021 Patient encounter procedure Cora Lee [facility] Start: 12-07-2021 End: 12-07-2021 Patient encounter procedure DO Daniele Hernandez Work Phone: [facility] Start: 11-18-2021 End: 11-18-2021 Patient encounter procedure Cora Lee [facility] Start: 10-27-2021 End: 10-28-2021 ambulatory CORA LEE . Facility:[facility] Start: 09-14-2021 End: 09-14-2021 Patient encounter procedure Cora Lee [facility] Start: 08-20-2021 End: 08-21-[address] DANIELE HERNANDEZ Facility:[facility] Procedures Date Procedure Procedure Detail Performing Clinician Start: 12-07-2021 MR prostate wo/w con DO Daniele Hernandez Work Phone: Start: 08-20-[address] ANTHONY HERNANDEZ Comment on above: Performed By: #### P SAD #### [facility] [address] [address] [address] Jurgen Nunn Appendectomy Cora Lee Extraction of cataract Cora Lee Placement of stent i n cardiac conduit Cora Lee Tonsillectomy Cora Lee Plan of Treatment Date Care Activity Detail Author Start: 03-15-2022 End: 03-15-2022 Xcapsl ctrc rmvl insj io lens prosth w/o ecp EYE CATARACT EMULSIFICATION IOL IMPLANT Combined forms of age-related cataract of right eye 03/15/2022 9:45 AM T [facility] Start: 12-14-2021 Influenza vaccination Flu vaccine (# 1) [facility] Start: 1980 DTaP/Tdap/Td vaccine (1 - Tdap) DTaP/Tdap/Td vaccine (1 - Tdap) [facility] Start: [birth year]-24-1961 COVID-19 Vaccine (#1) COVID-19 Vacci ne (#1) [facility] End: 03-15-2022 INITIATE PACU OXYGEN THERAPY PROTOCOL Initiate PACU Oxygen Therapy Protocol Respiratory Care Routine Continuous until discontinued starting 03/15/2022 [facility] Comment on above: Continuous until dis continued starting 03/15/2022 Oxygen therapy [Mini mum Data Set] Initiate Oxygen Therapy Protocol Respiratory Care Routine Daily until discontinued starting 03/15/2022 [facility] Work Phone: Comment on above: Daily until disconti nued starting 03/15/2022 Oxygen therapy [Mini mum Data Set] Initiate Oxygen Therapy Protocol Respiratory Care Routine Daily until discontinued starting 03/15/2022 [facility] Work Phone: Comment on above: Daily until disconti nued starting 03/15/2022 Immunizations Immunization Date Immunization Notes Care Provider Julia ames 04-01-2022 influenza virus vaccine, unspecified formulation Cora Lee [facility] 04-29-2021 SARS-CoV-2 (COVID-19 ) mRNA-1273 vaccine Cora Lue [facility] 04-10-2021 influenza virus vaccine, unspecified formulation Cora Lue [facility] 10-08-2020 SARS-CoV-2 (COVID-19 ) mRNA-1273 vaccine Cora Lue [facility] 09-12-2020 SARS-CoV-2 (COVID-19 ) mRNA-1273 vaccine Cora Lue [facility] 05-16-2020 SARS-CoV-2 (COVID-19 ) mRNA-1273 vaccine Cora Lue [facility] Payers Date Payer Category Payer Unknown [id number] 2.16.8 [id number] 1960 Unknown [id number] 2.16.84 [id number] 1960 Unknown [id number] 2.16.84 [id number] 1961 Unknown [id number] 2.16.84 [id number] 1961 Unknown [id number] 2.16.84 [id number] 1961 Unknown [id number] 2.16.8 [id number] 1961 Unknown [id number] 2.16.8 [id number] 1961 Unknown [id number] 2.16.8 [id number] 1958 Medicaid [id number] Self-pay Self Pay [id number] Unknown [employer] BC/BS [id number] Social History Date Type Detail Facility Start: 09-14-2021 End: 04-28-2022 Tobacco smoking status Never smoked tobacco (finding) [facility] Sex Assigned At Male [facility] Start: 1960 Sex Assigned At Male F [facility] Start: 03-15-2022 Alcohol intake Ex-drinker (finding) [employer] Work Phone: Start: 1960 Sex Assigned At Not on file B [employer] Phone: Start: 03-05-2022 End: 03-15-2022 Exposure to SARS-CoV-2 (event) Not sure [employer] Tobacco smoking status Never [facility] Medical Equipment Procedure Code Equipment Code Equipment Origin al Text Equipment Identifier Dates Lens Iol Envista Mx60 22.5d - [id number] Start: 09-04-2018 Lens Intraocular Bcnvx +22.5 Diopt 6x12.5 Mm [employer] - [id number] Start: 03-15-2022 Functional Status Date Assessment Result Facility 10-27-2022 Functional Status N/A [facility] 04-28-2022 Functional Status N/A [facility] 12-23-2021 Functional Status N/A [facility] 11-18-2021 Functional Status N/A [facility] Clinical Notes 09-14-2021 to 10-27-2022 Misty Alvarado RN - 03/15/2022 10:43 AM Bill Alvarado RN - 03/15/2022 10:35 AM Julieth Cifuentes RN - 03/11/2022 10:58 AM Julieth Cifuentes RN - 03/11/2022 10:45 AM EDT Note Date & Type Note Facility 10-27-2022 Hospital Discharge instructions Follow Up Care 10/27/2022 10:03:28 With:Jesus ROD, OFELIA Friedman, U[facility] Address: [address] [phone] When: Unknown [facility] [facility] 10[facility]22 Hospital Discharge instructions Patient Education 10/27/2022 09:56:53 Prostate Cancer Screening Prostate Cancer Screening Prostate cancer screening is testing that is done to check for the presence of prostate cancer in men. The prostate gland is a walnut-sized gland that is located below the bladder and in front of the rectum in males. The function of the prostate is to add fluid to semen during ejaculation. Prostate cancer is one of the most common types of cancer in men. Who should have prostate cancer screening? Screening recommendations vary based on age and other risk factors, as well as between the professional organizations who make the recommendations. In general, screening is recommended if: You are age 50 to 70 and have an average risk for prostate cancer. You should talk with your health care provider about your need for screening and how often screening should be done. Because most prostate cancers are slow growing and will not cause , screening in this age group is generally reserved for men who have a 10- to 15-year life expectancy. You are younger than age 50, and you have these risk factors: ?Having a father, brother, or uncle who has been diagnosed with prostate cancer. The risk is higher if your family member's cancer occurred at an early age or if you have multiple family members with prostate cancer at an early age. ?Being a male who is Black or is of Jagjit or sub-Saharan descent. In general, screening is not recommended if: You are younger than age 40. You are between the ages of 40 and 49 and you have no risk factors. You are 70 years of age or older. At this age, the risks that screening can cause are greater than the benefits that it may provide. If you are at high risk for prostate cancer, your health care provider may recommend that you have screenings more often or that you start screening at a younger age. How is screening for prostate cancer done? The recommended prostate cancer screening test is a blood test called the prostate-specific antigen (PSA) test. PSA is a protein that is made in the prostate. As you age, your prostate naturally produces more PSA. Abnormally high PSA levels may be caused by: Prostate cancer. An enlarged prostate that is not caused by cancer (benign prostatic hyperplasia, or BPH). This condition is very common in older men. A prostate gland infection (prostatitis) or urinary tract infection. Certain medicines such as male hormones (like testosterone) or other medicines that raise testosterone levels. A rectal exam may be done as part of prostate cancer screening to help provide information about the size of your prostate gland. When a rectal exam is performed, it should be done after the PSA level is drawn to avoid any effect on the results. Depending on the PSA results, you may need more tests, such as: A physical exam to check the size of your prostate gland, if not done as part of screening. Blood and imaging tests. A procedure to remove tissue samples from your prostate gland for testing (biopsy). This is the only way to know for certain if you have prostate cancer. What are the benefits of prostate cancer screening? Screening can help to identify cancer at an early stage, before symptoms start and when the cancer can be treated more easily. There is a small chance that screening may lower your risk of dying from prostate cancer. The chance is small because prostate cancer is a slow-growing cancer, and most men with prostate cancer from a different cause. What are the risks of prostate cancer screening? The main risk of prostate cancer screening is diagnosing and treating prostate cancer that would never have caused any symptoms or problems. This is called overdiagnosisand overtreatment. PSA screening cannot tell you if your PSA is high due to cancer or a different cause. A prostate biopsy is the only procedure to diagnose prostate cancer. Even the results of a biopsy may not tell you if your cancer needs to be treated. Slow-growing prostate cancer may not need any treatment other than monitoring, so diagnosing and treating it may cause unnecessary stress or other side effects. Questions to ask your health care provider When should I start prostate cancer screening? What is my risk for prostate cancer? How often do I need screening? What type of screening tests do I need? How do I get my test results? What do my results mean? Do I need treatment? Where to find more information The [place] [employer]: www.cancer.org [employer] [employer]: www.auanet.org Contact a health care provider if: You have difficulty urinating. You have pain when you urinate or ejaculate. You have blood in your urine or semen. You have pain in your back or in the area of your prostate. Summary Prostate cancer is a common type of cancer in men. The prostate gland is located below the bladder and in front of the rectum. This gland adds fluid to semen during ejaculation. Prostate cancer screening may identify cancer at an early stage, when the cancer can be treated more easily and is less likely to have spread to other areas of the body. The prostate-specific antigen (PSA) test is the recommended screening test for prostate cancer, but it has associated risks. Discuss the risks and benefits of prostate cancer screening with your health care provider. If you are age 70 or older, the risks that screening can cause are greater than the benefits that it may provide. This information is not intended to replace advice given to you by your health care provider. Make sure you discuss any questions you have with your health care provider. Document Revised: 10/26/2021 Document Reviewed: 10/26/2021 [employer] Patient Education 2022 [employer]. Follow Up Care 04/28/2022 12:57:05 With:Jesus ROD, OFELIA Friedman, URO Address: When: Unknown [facility] 04-28-2022 Hospital Discharge instructions Patient Education 04/28/2022 12:53:50 Cancer Screening for Men Cancer Screening for Men A cancer screening is a test or exam that checks for cancer. Your health care provider will recommend specific cancer screenings based on your age, personal history, and family history of cancer. Work with your health care provider to create a cancer screening schedule that protects your health. Why is cancer screening done? Cancer screening is done to look for cancer in the very early stages, before it spreads and becomes harder to treat and before you would start to notice symptoms. Finding cancer early improves the chances of successful treatment. It may save your life. Who should be screened for cancer? All men should be screened for colorectal cancer and skin cancer. Your health care provider may recommend screenings for other types of cancer if: You had cancer before. You have a family member with cancer. You have abnormal genes that could increase the risk of cancer. You have risk factors for certain cancers, such as smoking. When you should be screened for cancer depends on: Your age. Your medical history and your family's medical history. Certain lifestyle factors, such as smoking. Environmental exposure, such as to asbestos. What are some common cancer screenings? Lung cancer Lung cancer screening is done with a CT scan that looks for abnormal cells in the lungs. Discuss lung cancer screening with your health care provider if you are 55 74 years old and if any of the following apply to you: You currently smoke. You used to smoke heavily. You have a smoking history of 1 pack a day for 30 years or 2 packs a day for 15 years. You have quit smoking within the past 15 years. If you smoke heavily or if you used to smoke, you may need to be screened every year. Prostate cancer Prostate cancer screening is done with blood tests and an exam in which a health care provider uses a gloved finger to check prostate size (digital rectal exam). You may need to be screened for prostate cancer if: You have risk factors of prostate cancer, such as being or having a close family member with prostate cancer. You have inherited gene changes or a genetic condition, including BRCA1 or BRCA2 gene mutations or Plunkett syndrome. You have symptoms of prostate cancer, such as problems urinating or erectile dysfunction. Prostate cancer screening for men with average risk may start at age 50. Men with risk factors may need to be screened earlier at age 40 45. Once you have been screened for prostate cancer, future screening may be recommended based on the results of your blood tests. Colorectal cancer All adults should have screening for colorectal cancer starting at age 50 and continuing until age 75. Your health care provider may recommend screening at age 45. You will have tests every 1 10 years, depending on your results and the type of screening test. If you have a family history of colon or rectal cancer or other risk factors, you may need to start having screenings earlier. Talk with your health care provider about which screening test is right for you and how often you should be screened. Colorectal cancer screening looks for cancer or for growths called polyps that often form before cancer starts. Tests to look for cancer or polyps include: Colonoscopy or flexible sigmoidoscopy. For these procedures, a flexible tube with a small camera is inserted into the rectum. CT colonography. This test uses X-rays and a contrast dye to check the colon for polyps. If a polyp is found, you may need to have a colonoscopy so the polyp can be located and removed. Tests to look for cancer in the stool (feces) include: Guaiac-based fecal occult blood test (FOBT). This test detects blood in stool. It can be done at home with a kit. Fecal immunochemical test (FIT). This test detects blood in stool. For this test, you will need to collect stool samples at home. Stool DNA test. This test looks for blood in stool and any changes in DNA that can lead to colon cancer. For this test, you will need to collect a stool sample at home and send it to a lab. Skin cancer Skin cancer screening is done by checking the skin for unusual moles or spots and any changes in existing moles. Your health care provider should check your skin for signs of skin cancer at every physical exam. You should check your skin every month and tell your health care provider right away if anything looks unusual. Men with a htbmal-rkew-cxgpts risk for skin cancer may want to see a skin toggler (hand developer) for an annual body check. Where to find more information National [employer]: https://www.cancer.gov/about-cance r/screening Centers for Disease Control and Prevention: https://www.cdc.gov/cancer/dcpc/pr evention/screening.htm [place] [employer]: https://www.cancer.org/latest-news /3-orhsof-spkrgirtj-rdzja-mjc-xsp. html Contact a health care provider if: You have concerns about any signs or symptoms of cancer, such as: ?Moles that have an unusual shape or color. ?Changes in existing moles. ?A sore on your skin that does not heal. ?Blood in your urine or stool. ?Fatigue that does not go away. ?Frequent pain or cramping in your abdomen. ?Coughing or trouble breathing that does not go away. ?Coughing up blood. ?Losing weight without trying. ?Changes in urination habits. ?Painful urination or ejaculation. Summary Be aware of and watch for signs and symptoms of cancer, especially symptoms of lung cancer, prostate cancer, colorectal cancer, and skin cancer. Early detection of cancer with cancer screening may save your life. Talk with your health care provider about your specific cancer risks. Work together with your health care provider to create a cancer screening plan that is right for you. This information is not intended to replace advice given to you by your health care provider. Make sure you discuss any questions you have with your health care provider. Document Released: 01/27/2017 Document Revised: 01/19/2019 Document Reviewed: 01/27/2017 [employer] Patient Education 2020 [employer]. Follow Up Care 12/23/2021 08:37:49 With:Jesus ROD, OFELIA Friedman, URO Address: When:6 months Comments:w/ PSA F/T [facility] 03-15-2022 History of Present illness Narrative Discharge instructions reviewed with patient and patient's brother in law. Verbalized understanding and denied any questions. Patient verbalizes readiness for discharge at this time. Discharge Criteria Inpatients must meet Criteria 1 through 7. All other patients are either YES or N/A. If a NO is chosen then Anesthesia or Surgeon must be notified. 1. Minimum 30 minutes after last dose of sedative medication, minimum 120 minutes after last dose of reversal agent. Yes 2. Systolic BP stable within 20 mmHg for 30 minutes & systolic BP between 90 & 180 or within 10 mmHg of baseline. Yes 3. Pulse between 60 and 100 or within 10 bpm of baseline. Yes 4. Spontaneous respiratory rate >/= 10 per minute. Yes 5. SaO2 >/= 95 or >/= baseline. Yes 6. Able to cough and swallow or return to baseline function. Yes 7. Alert and oriented or return to baseline mental status. Yes 8. Demonstrates controlled, coordinated movements, ambulates with steady gait, or return to baseline activity function. No 9. Minimal or no pain or nausea, or at a level tolerable and acceptable to patient. Yes 10. Takes and retains oral fluids as allowed. Yes 11. Procedural / perioperative site stable. Minimal or no bleeding. Yes 12. If GI endoscopy procedure, minimal or no abdominal distention or passing flatus. N/A 13. Written discharge instructions and emergency telephone number provided. Yes 14. Accompanied by a responsible adult. Yes Contacted pt's emergency contact for information. Spoke to pt's sister Sampson who is POA and states that the pt has profound hearing loss. Pre op Instructions reviewed with sister and she states they were given pre-op instructions from Dr. Medrano's office, no questions at this time. Attempted PAT phone call; no answer; message left to return PAT phone call. Dr. Medrano's office notified that PAT has been unsuccessful at reaching the patient. Multiple phone calls and messages left without a returned phone call from patient. Attempted PAT phone call; no answer; message left to return PAT phone call. Attempted PAT phone call; no answer; message left to return PAT phone call. Attempted PAT phone call; no answer; unable to leave a message documented in this encounter [facility] Work Phone: 03-15-2022 Hospital Discharge instructions Bianca Medrano DO - 03/15/2022 10:16 AM EDT SAME DAY SURGERY DISCHARGE INSTRUCTIONS 1. Do not drive or operate hazardous machinery for 24 hours. 2. Do not make important personal or business decisions for 24 hours. 3. Do not drink alcoholic beverages for 24 hours. 4. Do not smoke tobacco products for 24 hours. 5. Limit your activities for 24 hours. Do not engage in heavy work until your surgeon gives you permission. 6. Report the following signs or any questions regarding your physical condition to your surgeon immediately: Excessive swelling of, or around the wound area. Redness. Temperature of 100 degrees (F) or above. Excessive pain. 7. Call your surgeon for any questions regarding your surgery. CATARACT DISCHARGE INSTRUCTIONS Do not remove eye patch/shield today. Protect the operated eye during sleep by covering it with clear plastic shield. Tape the shield securely to the face before retiring . Do this for one week after surgery. Avoid bumping the operated eye during the daytime. Sensitivity to light and watering of the eye is normal during the first month. Wearing of dark glasses will help these symptoms and this is optional. Minor crusting and discharge adherent to the lid margins will persist till the incision heals. Cleanse the lids by application of a warm compress several times a day as needed. Use of either the operated eye or unoperated eye is not harmful. Until the new glasses are prescribed, the operated eye may be out of focus and may not see details clearly. Vision maybe clearer in the operated eye without glasses. You may do everything necessary to care for yourself, including hair care, tooth brushing, dressing, etc. Light work,including stooping over and lifting, is not harmful. Please phone if any problems arise during the healing period. The office number is [phone]. Take surgery bag and all eye drops to Dr. Medrano's office tomorrow at 10:05am. You may resume your normal diet. Start your eye drops tomorrow after your post-op appointment: Ofloxacin/Polytrim one drop to the operated eye 4 times daily Prednisolone one drop to the operated eye 4 times daily documented in this encounter [facility] [employer] Work Phone: 12-23-2021 Hospital Discharge instructions Patient Education 12/23/2021 08:36:29 Benign Prostatic Hyperplasia Benign Prostatic Hyperplasia Benign prostatic hyperplasia (BPH) is an enlarged prostate gland that is caused by the normal aging process and not by cancer. The prostate is a walnut-sized gland that is involved in the production of semen. It is located in front of the rectum and below the bladder. The bladder stores urine and the urethra is the tube that carries the urine out of the body. The prostate may get bigger as a man gets older. An enlarged prostate can press on the urethra. This can make it harder to pass urine. The build-up of urine in the bladder can cause infection. Back pressure and infection may progress to bladder damage and kidney (renal) failure. What are the causes? This condition is part of a normal aging process. However, not all men develop problems from this condition. If the prostate enlarges away from the urethra, urine flow will not be blocked. If it enlarges toward the urethra and compresses it, there will be problems passing urine. What increases the risk? This condition is more likely to develop in men over the age of 50 years. What are the signs or symptoms? Symptoms of this condition include: Getting up often during the night to urinate. Needing to urinate frequently during the day. Difficulty starting urine flow. Decrease in size and strength of your urine stream. Leaking (dribbling) after urinating. Inability to pass urine. This needs immediate treatment. Inability to completely empty your bladder. Pain when you pass urine. This is more common if there is also an infection. Urinary tract infection (UTI). How is this diagnosed? This condition is diagnosed based on your medical history, a physical exam, and your symptoms. Tests will also be done, such as: A post-void bladder scan. This measures any amount of urine that may remain in your bladder after you finish urinating. A digital rectal exam. In a rectal exam, your health care provider checks your prostate by putting a lubricated, gloved finger into your rectum to feel the back of your prostate gland. This exam detects the size of your gland and any abnormal lumps or growths. An exam of your urine (urinalysis). A prostate specific antigen (PSA) screening. This is a blood test used to screen for prostate cancer. An ultrasound. This test uses sound waves to electronically produce a picture of your prostate gland. Your health care provider may refer you to a specialist in kidney and prostate diseases (urologist). How is this treated? Once symptoms begin, your health care provider will monitor your condition (active surveillance or watchful waiting). Treatment for this condition will depend on the severity of your condition. Treatment may include: Observation and yearly exams. This may be the only treatment needed if your condition and symptoms are mild. Medicines to relieve your symptoms, including: ?Medicines to shrink the prostate. ?Medicines to relax the muscle of the prostate. Surgery in severe cases. Surgery may include: ?Prostatectomy. In this procedure, the prostate tissue is removed completely through an open incision or with a laparoscope or robotics. ?Transurethral resection of the prostate (TURP). In this procedure, a tool is inserted through the opening at the tip of the penis (urethra). It is used to cut away tissue of the inner core of the prostate. The pieces are removed through the same opening of the penis. This removes the blockage. ?Transurethral incision (TUIP). In this procedure, small cuts are made in the prostate. This lessens the prostate's pressure on the urethra. ?Transurethral microwave thermotherapy (TUMT). This procedure uses microwaves to create heat. The heat destroys and removes a small amount of prostate tissue. ?Transurethral needle ablation (TUNA). This procedure uses radio frequencies to destroy and remove a small amount of prostate tissue. ?Interstitial laser coagulation (ILC). This procedure uses a laser to destroy and remove a small amount of prostate tissue. ?Transurethral electrovaporization (TUVP). This procedure uses electrodes to destroy and remove a small amount of prostate tissue. ?Prostatic urethral lift. This procedure inserts an implant to push the lobes of the prostate away from the urethra. Follow these instructions at home: Take eemf-qkb-rqkeffz and prescription medicines only as told by your health care provider. Monitor your symptoms for any changes. Contact your health care provider with any changes. Avoid drinking large amounts of liquid before going to bed or out in public. Avoid or reduce how much caffeine or alcohol you drink. Give yourself time when you urinate. Keep all follow-up visits as told by your health care provider. This is important. Contact a health care provider if: You have unexplained back pain. Your symptoms do not get better with treatment. You develop side effects from the medicine you are taking. Your urine becomes very dark or has a bad smell. Your lower abdomen becomes distended and you have trouble passing your urine. Get help right away if: You have a fever or chills. You suddenly cannot urinate. You feel lightheaded, or very dizzy, or you faint. There are large amounts of blood or clots in the urine. Your urinary problems become hard to manage. You develop moderate to severe low back or flank pain. The flank is the side of your body between the ribs and the hip. These symptoms may represent a serious problem that is an emergency. Do not wait to see if the symptoms will go away. Get medical help right away. Call your local emergency services (911 in the [place] Do not drive yourself to the hospital. Summary Benign prostatic hyperplasia (BPH) is an enlarged prostate that is caused by the normal aging process and not by cancer. An enlarged prostate can press on the urethra. This can make it hard to pass urine. This condition is part of a normal aging process and is more likely to develop in men over the age of 50 years. Get help right away if you suddenly cannot urinate. This information is not intended to replace advice given to you by your health care provider. Make sure you discuss any questions you have with your health care provider. Document Released: 05/02/2006 Document Revised: 03/27/2019 Document Reviewed: 06/06/2017 [employer] Patient Education 2019 [employer]. Follow Up Care 12/18/2021 14:19:29 With:Jesus ROD, OFELIA Friedman, URO Address: When:Within 4 Month(s) Comments:PSA F/T [facility] 11-18-2021 Hospital Discharge instructions Patient Education 11/18/2021 11:57:25 Cancer Screening for Men Cancer Screening for Men A cancer screening is a test or exam that checks for cancer. Your health care provider will recommend specific cancer screenings based on your age, personal history, and family history of cancer. Work with your health care provider to create a cancer screening schedule that protects your health. Why is cancer screening done? Cancer screening is done to look for cancer in the very early stages, before it spreads and becomes harder to treat and before you would start to notice symptoms. Finding cancer early improves the chances of successful treatment. It may save your life. Who should be screened for cancer? All men should be screened for colorectal cancer and skin cancer. Your health care provider may recommend screenings for other types of cancer if: You had cancer before. You have a family member with cancer. You have abnormal genes that could increase the risk of cancer. You have risk factors for certain cancers, such as smoking. When you should be screened for cancer depends on: Your age. Your medical history and your family's medical history. Certain lifestyle factors, such as smoking. Environmental exposure, such as to asbestos. What are some common cancer screenings? Lung cancer Lung cancer screening is done with a CT scan that looks for abnormal cells in the lungs. Discuss lung cancer screening with your health care provider if you are 55 74 years old and if any of the following apply to you: You currently smoke. You used to smoke heavily. You have a smoking history of 1 pack a day for 30 years or 2 packs a day for 15 years. You have quit smoking within the past 15 years. If you smoke heavily or if you used to smoke, you may need to be screened every year. Prostate cancer Prostate cancer screening is done with blood tests and an exam in which a health care provider uses a gloved finger to check prostate size (digital rectal exam). You may need to be screened for prostate cancer if: You have risk factors of prostate cancer, such as being or having a close family member with prostate cancer. You have inherited gene changes or a genetic condition, including BRCA1 or BRCA2 gene mutations or Plunkett syndrome. You have symptoms of prostate cancer, such as problems urinating or erectile dysfunction. Prostate cancer screening for men with average risk may start at age 50. Men with risk factors may need to be screened earlier at age 40 45. Once you have been screened for prostate cancer, future screening may be recommended based on the results of your blood tests. Colorectal cancer All adults should have screening for colorectal cancer starting at age 50 and continuing until age 75. Your health care provider may recommend screening at age 45. You will have tests every 1 10 years, depending on your results and the type of screening test. If you have a family history of colon or rectal cancer or other risk factors, you may need to start having screenings earlier. Talk with your health care provider about which screening test is right for you and how often you should be screened. Colorectal cancer screening looks for cancer or for growths called polyps that often form before cancer starts. Tests to look for cancer or polyps include: Colonoscopy or flexible sigmoidoscopy. For these procedures, a flexible tube with a small camera is inserted into the rectum. CT colonography. This test uses X-rays and a contrast dye to check the colon for polyps. If a polyp is found, you may need to have a colonoscopy so the polyp can be located and removed. Tests to look for cancer in the stool (feces) include: Guaiac-based fecal occult blood test (FOBT). This test detects blood in stool. It can be done at home with a kit. Fecal immunochemical test (FIT). This test detects blood in stool. For this test, you will need to collect stool samples at home. Stool DNA test. This test looks for blood in stool and any changes in DNA that can lead to colon cancer. For this test, you will need to collect a stool sample at home and send it to a lab. Skin cancer Skin cancer screening is done by checking the skin for unusual moles or spots and any changes in existing moles. Your health care provider should check your skin for signs of skin cancer at every physical exam. You should check your skin every month and tell your health care provider right away if anything looks unusual. Men with a fpgznb-yuwc-uyacgb risk for skin cancer may want to see a skin toggler (hand developer) for an annual body check. Where to find more information National [employer]: https://www.cancer.gov/about-cance r/screening Centers for Disease Control and Prevention: https://www.cdc.gov/cancer/dcpc/pr evention/screening.htm [employer] [employer]: https://www.cancer.org/latest-news /5-hzgeqz-rfmfdzkwn-vvfwm-wzo-fbt. html Contact a health care provider if: You have concerns about any signs or symptoms of cancer, such as: ?Moles that have an unusual shape or color. ?Changes in existing moles. ?A sore on your skin that does not heal. ?Blood in your urine or stool. ?Fatigue that does not go away. ?Frequent pain or cramping in your abdomen. ?Coughing or trouble breathing that does not go away. ?Coughing up blood. ?Losing weight without trying. ?Changes in urination habits. ?Painful urination or ejaculation. Summary Be aware of and watch for signs and symptoms of cancer, especially symptoms of lung cancer, prostate cancer, colorectal cancer, and skin cancer. Early detection of cancer with cancer screening may save your life. Talk with your health care provider about your specific cancer risks. Work together with your health care provider to create a cancer screening plan that is right for you. This information is not intended to replace advice given to you by your health care provider. Make sure you discuss any questions you have with your health care provider. Document Released: 01/27/2017 Document Revised: 01/19/2019 Document Reviewed: 01/27/2017 [employer] Patient Education 2020 [employer]. Follow Up Care 09/14/2021 14:58:32 With:Jesus ROD, OFELIA Friedman, URO Address: When: Unknown [facility] 09-14-2021 Hospital Discharge instructions Patient Education 09/14/2021 15:04:10 Prostatitis Prostatitis Prostatitis is swelling or inflammation of the prostate gland. The prostate is a walnut-sized gland that is involved in the production of semen. It is located below a man's bladder, in front of the rectum. There are four types of prostatitis: Chronic nonbacterial prostatitis. This is the most common type of prostatitis. It may be associated with a viral infection or autoimmune disorder. Acute bacterial prostatitis. This is the least common type of prostatitis. It starts quickly and is usually associated with a bladder infection, high fever, and shaking chills. It can occur at any age. Chronic bacterial prostatitis. This type usually results from acute bacterial prostatitis that happens repeatedly (is recurrent) or has not been treated properly. It can occur in men of any age but is most common among middle-aged men whose prostate has begun to get larger. The symptoms are not as severe as symptoms caused by acute bacterial prostatitis. Prostatodynia or chronic pelvic pain syndrome (CPPS). This type is also called pelvic floor disorder. It is associated with increased muscular tone in the pelvis surrounding the prostate. What are the causes? Bacterial prostatitis is caused by infection from bacteria. Chronic nonbacterial prostatitis may be caused by: Urinary tract infections (UTIs). Nerve damage. A response by the body s disease-fighting system (autoimmune response). Chemicals in the urine. The causes of the other types of prostatitis are usually not known. What are the signs or symptoms? Symptoms of this condition vary depending upon the type of prostatitis. If you have acute bacterial prostatitis, you may experience: Urinary symptoms, such as: ?Painful urination. ?Burning during urination. ?Frequent and sudden urges to urinate. ?Inability to start urinating. ?A weak or interrupted stream of urine. Vomiting. Nausea. Fever. Chills. Inability to empty the bladder completely. Pain in the: ?Muscles or joints. ?Lower back. ?Lower abdomen. If you have any of the other types of prostatitis, you may experience: Urinary symptoms, such as: ?Sudden urges to urinate. ?Frequent urination. ?Difficulty starting urination. ?Weak urine stream. ?Dribbling after urination. Discharge from the urethra. The urethra is a tube that opens at the end of the penis. Pain in the: ?Testicles. ?Penis or tip of the penis. ?Rectum. ?Area in front of the rectum and below the scrotum (perineum). Problems with sexual function. Painful ejaculation. Bloody semen. How is this diagnosed? This condition may be diagnosed based on: A physical and medical exam. Your symptoms. A urine test to check for bacteria. An exam in which a health care provider uses a finger to feel the prostate (digital rectal exam). A test of a sample of semen. Blood tests. Ultrasound. Removal of prostate tissue to be examined under a microscope (biopsy). Tests to check how your body handles urine (urodynamic tests). A test to look inside your bladder or urethra (cystoscopy). How is this treated? Treatment for this condition depends on the type of prostatitis. Treatment may involve: Medicines to relieve pain or inflammation. Medicines to help relax your muscles. Physical therapy. Heat therapy. Techniques to help you control certain body functions (biofeedback). Relaxation exercises. Antibiotic medicine, if your condition is caused by bacteria. Warm water baths (sitz baths). Sitz baths help with relaxing your pelvic floor muscles, which helps to relieve pressure on the prostate. Follow these instructions at home: Take gais-ezw-shklxnn and prescription medicines only as told by your health care provider. If you were prescribed an antibiotic, take it as told by your health care provider. Do not stop taking the antibiotic even if you start to feel better. If physical therapy, biofeedback, or relaxation exercises were prescribed, do exercises as instructed. Take sitz baths as directed by your health care provider. For a sitz bath, sit in warm water that is deep enough to cover your hips and buttocks. Keep all follow-up visits as told by your health care provider. This is important. Contact a health care provider if: Your symptoms get worse. You have a fever. Get help right away if: You have chills. You feel nauseous. You vomit. You feel light-headed or feel like you are going to faint. You are unable to urinate. You have blood or blood clots in your urine. This information is not intended to replace advice given to you by your health care provider. Make sure you discuss any questions you have with your health care provider. Document Released: 04/29/2001 Document Revised: 07/15/2018 Document Reviewed: 01/20/2017 [employer] Patient Education 2020 [employer]. Follow Up Care 09/08/2021 13:18:17 With:Cora Lee MD, URL, URO Address: [phone] When:10/26/2021 Comments:w/psa [facility] Evaluation + Plan note Future Appointments Appointment Date:11/18/2021 10:15:00 AM Scheduled Provider:Cora Lee MD Location:[facility] Appointment Type:URO Office Visit Diagnostic Tests PendingPSA Free & Total 09/14/21 [facility] Evaluation + Plan note Future Appointments Appointment Date:04/28/2022 10:15:00 AM Scheduled Provider:Cora Lee MD Location:[facility] Appointment Type:URO Office Visit Diagnostic Tests PendingPSA Free & Total 12/23/21 [facility] Evaluation + Plan note Future Appointments Appointment Date:10/27/2022 09:30:00 AM Scheduled Provider:Cora Lee MD Location:[facility] Appointment Type:URO Office Visit Diagnostic Tests PendingPSA Free & Total 04/28/22 [facility] Evaluation + Plan note Future Appointments Appointment Date:05/04/2023 09:45:00 AM Scheduled Provider:Cora Lee MD Location:[facility] Appointment Type:URO Office Visit Diagnostic Tests PendingPSA Free & Total 10/27/22 [facility] Evaluation + Plan note Future Appointments Appointment Date:05/25/2023 11:00:00 AM Scheduled Provider:Cora Lee MD Location:[facility] Appointment Type:URO Office Visit [facility] Evaluation note No assessment inform ation available [facility] Work Phone: Evaluation note Diagnosis 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 Other and combined forms of senile cataract documented in this encounter [facility] Work Phone: Hospital course Narrative No data available for this section [facility] Progress note No data available for this section [facility] Summary Purpose Family History No Family History Records Found Relationship Condition Age at Onset Recorded Date/T karl Not Specified Diabetes mellitus Unknown Heart disease Unknown father Malignant neoplasm Unknown Advance Directives No Advanced Directives Records Found Advance Directive Response Recorded Date/ Time Advance Directives No October 12 8 10:30pm Latest Code Status on File Code Status Date Activated Date Inactivated Comments Full Code 03/15/2022 8:51 AM Full Code 09/04/2018 7:57 AM 09/04/2018 11:49 AM Chief Complaint and Reason for Visit Chief Complaint r97.20 z80.42 n41.9 Additional Source Comments (unrecognized sect ion and content) No Status Records FoundNo Status Records FoundNo Status Records FoundNo Status Records FoundNo Status Records Found INFORMATION SOURCE (unrecogn ized section and content) DATE CREATED AUTHOR 02/25/2019 [facility] DATE CREATED AUTHOR AUTHOR'S ORGANIZ ATION 12/13/2021 [facility] DATE CREATED AUTHOR AUTHOR'S ORGANIZ ATION 03/15/2022 [facility] DATE CREATED AUTHOR AUTHOR'S ORGANIZ ATION 07/20/2022 [facility] DATE CREATED AUTHOR AUTHOR'S ORGANIZ ATION [facility]/05/2023 [facility] Care Team (unrecognized sect ion and content) Team Status: Inactive Member Role Status Dates Daniele Hernandez DO Primary Care Provider Active Cora Lee MD Attending Provider Active Team Status: Active Member Role Status Dates Daniele Hernandez DO Primary Care Provider Active [employer] Relationship Specialty Start Date End Date Sr Daniele Hernandez DO [address] [place] [address] PCP - General Family Medicine 03/10/22 Goals (unrecognized section and content) Goals may be documented in a n alternate section Reason for Visit (unrecogniz ed section and content) Specialty Diagnoses / Procedures Referred By Contac t Referred To Contact Diagnoses Combined forms of age-related cataract of right eye COMBINED FORMS OF AGE RELATED CAT 1+NS, 3+PSC, 2+CS Procedures TN XCAPSL CTRC RMVL INSJ IO LENS PROSTH W/O ECP EYE CATARACT EMULSIFICATION IOL IMPLANT Bianca Medrano Y, DO [address] [place] [address] [facility] [id number] [place] [address] Referral ID Status Reason Start Date Expiration Date Visits Re quested Visits Authorized [id number] 1 1 Scheduled Active and Recently Administ ered Medications (unrecognized section and content) Medication Order 03/13/2022 03/14/2022 03/15/2022 phenylephrine (MYDFRIN) 2.5 % ophthalmic solution 1 drop 1 drop, Right Eye, SEE ADMIN INSTRUCTIONS, Starting on Tue03/15/22 at 0851, Until Discontinued, To operative eye(s) for 3-5 doses every 5 minutes, starting 30 minutes prior to surgery, RPh - enter number of doses based on parameters defined by the physician in the admin. comments., Pre-op (day of surgery) 09 (Given - Provid er: Rozina Solorzano RN)09 (Given - Provider: Rozina Solorzano RN)09 (Given - Provider: Rozina Solorzano RN) proparacaine (ALCAINE) 0.5 % ophthalmic solution 1 drop 1 drop, Right Eye, SEE ADMIN INSTRUCTIONS, Starting on Tue03/15/22 at 0851, Until Discontinued, Into the operative eye(s) every 5 minutes for PRN doses starting 30 minutes prior to surgery., Pre-op (day of surgery) 905 (Given - Provid er: Rozina Soolrzano RN)09 (Given - Provider: Rozina Solorzano RN)09 (Given - Provider: Rozina Solorzano RN) sodium chloride flush 0.9 % injection 5-40 mL 5-40 mL, IntraVENous, EVERY 12 HOURS SCHEDULED (2 times per day), First dose on Tue03/15/22 at 0915, Until Discontinued, For Line Patency: Peripheral IV = 5 mL; Midline or Central Line = 10 mL/lumen. If following IV push medication, administer flush at same rate as the IV push. Flush volume is determined by type of infusion therapy being given. For non-viscous solutions use: Peripheral IV = 5 mL Midline or Central Line = 10 mL/lumen For viscous solutions (i.e. blood components, parenteral nutrition, contrast media, or after obtaining blood sample) use: Peripheral IV = 10 mL Midline or Central Line = 20 mL/lumen, Pre-op (day of surgery) 0915 (Due)2100 (Due) sodium chloride flush 0.9 % injection 5-40 mL 5-40 mL, IntraVENous, EVERY 12 HOURS SCHEDULED (2 times per day), First dose on Tue03/15/22 at 1045, Until Discontinued, For Line Patency: Peripheral IV = 5 mL; Midline or Central Line = 10 mL/lumen. If following IV push medication, administer flush at same rate as the IV push. Flush volume is determined by type of infusion therapy being given. For non-viscous solutions use: Peripheral IV = 5 mL Midline or Central Line = 10 mL/lumen For viscous solutions (i.e. blood components, parenteral nutrition, contrast media, or after obtaining blood sample) use: Peripheral IV = 10 mL Midline or Central Line = 20 mL/lumen, PACU only 1045 (Due)2100 (Due) sodium chloride flush 0.9 % injection 5-40 mL 5-40 mL, IntraVENous, EVERY 12 HOURS SCHEDULED (2 times per day), First dose on Tue03/15/22 at 1045, Until Discontinued, For Line Patency: Peripheral IV = 5 mL; Midline or Central Line = 10 mL/lumen. If following IV push medication, administer flush at same rate as the IV push. Flush volume is determined by type of infusion therapy being given. For non-viscous solutions use: Peripheral IV = 5 mL Midline or Central Line = 10 mL/lumen For viscous solutions (i.e. blood components, parenteral nutrition, contrast media, or after obtaining blood sample) use: Peripheral IV = 10 mL Midline or Central Line = 20 mL/lumen, Post-op 1045 (Due)2100 (Due) tetracaine (TETRAVISC) 0.5 % ophthalmic solution 1 drop 1 drop, Right Eye, SEE ADMIN INSTRUCTIONS, Starting on Tue03/15/22 at 0851, Until Discontinued, Into the operative eye(s) every 5 minutes for PRN doses starting 30 minutes prior to surgery., Pre-op (day of surgery) tropicamide (MYDRIACYL) 1 % ophthalmic solution 1 drop 1 drop, Right Eye, SEE ADMIN INSTRUCTIONS, Starting on Tue03/15/22 at 0851, Until Discontinued, To operative eye(s) for 3-5 doses every 5 minutes, starting 30 minutes prior to surgery, [facility] - enter number of doses based on parameters defined by the physician in the admin. comments., Pre-op (day of surgery) 0906 (Given - Provid er: Rozina Solorzano RN)0916 (Given - Provider: Rozina Solorzano RN)0923 (Given - Provider: Rozina Solorzano RN) Continuous Medication Order 03/13/2022 03/14/2022 03/15/2022 0.9 % sodium chloride infusion IntraVENous, at 125 mL/hr, CONTINUOUS, Starting on Tue03/15/22 at 0915, Pre-op (day of surgery) 0915 (Due) lactated ringers infusion IntraVENous, at 100 mL/hr, CONTINUOUS, Starting on Tue03/15/22 at 0915, Pre-op (day of surgery) 0923 (New Bag - Prov ider: Rozina Solorzano RN)0944 (NoRateChange - Provider: Bjorn Doyle APRN - BRYANT)1005 (Anesthesia Volume Adjustment - Provider: JESSICA Matos CRNA)1037 (Stopped - Provider: Misty Alvarado RN) PRN Medication Order 03/13/2022 03/14/2022 03/15/2022 0.9 % sodium chloride infusion IntraVENous, at 5-250 mL/hr, PRN, if patient receiving piggyback infusions and maintenance fluids are not ordered OR KVO fluids to protect IV site / prevent frequent line interruptions/ long duration, Starting on Tue03/15/22 at 0851, For piggyback infusion, administer at same rate as piggyback for a total of 25 mL. Enter 25 mL into dose field and piggyback rate into rate field of order. If piggyback is infusing at a rate less than 100 mL/hr, enter 25 mL into dose field and 100 mL/hr into rate field of order. For KVO fluids, enter rate of 20 mL/hr or less into rate field of order., Pre-op (day of surgery) 0.9 % sodium chloride infusion IntraVENous, at 5-250 mL/hr, PRN, if patient receiving piggyback infusions and maintenance fluids are not ordered OR KVO fluids to protect IV site / prevent frequent line interruptions/ long duration, Starting on Tue03/15/22 at 1016, For piggyback infusion, administer at same rate as piggyback for a total of 25 mL. Enter 25 mL into dose field and piggyback rate into rate field of order. If piggyback is infusing at a rate less than 100 mL/hr, enter 25 mL into dose field and 100 mL/hr into rate field of order. For KVO fluids, enter rate of 20 mL/hr or less into rate field of order., PACU only 0.9 % sodium chloride infusion IntraVENous, at 5-250 mL/hr, PRN, if patient receiving piggyback infusions and maintenance fluids are not ordered OR KVO fluids to protect IV site / prevent frequent line interruptions/ long duration, Starting on Tue03/15/22 at 1016, For piggyback infusion, administer at same rate as piggyback for a total of 25 mL. Enter 25 mL into dose field and piggyback rate into rate field of order. If piggyback is infusing at a rate less than 100 mL/hr, enter 25 mL into dose field and 100 mL/hr into rate field of order. For KVO fluids, enter rate of 20 mL/hr or less into rate field of order., Post-op balanced salts (BSS) 500 mL, EPINEPHrine (EPINEPHrine HCL) 1 mg (CANCELED) PRN, Starting on Tue03/15/22 at 0954, Intra-op 0954 (Given - Provid er: Bianca Medrano DO) lidocaine PF 1 % injection (CANCELED) PRN, Starting on Tue03/15/22 at 0955, Until Tue03/15/22 at 1007, Intra-op 0955 (Given - Provid er: Bianca Medrano DO) sodium chloride flush 0.9 % injection 5-40 mL 5-40 mL, IntraVENous, PRN, Starting on Tue03/15/22 at 0851, Until Discontinued, Line Care, After every IV line use, For Line Patency: Peripheral IV = 5 mL; Midline or Central Line = 10 mL/lumen. If following IV push medication, administer flush at same rate as the IV push. Flush volume is determined by type of infusion therapy being given. For non-viscous solutions use: Peripheral IV = 5 mL Midline or Central Line = 10 mL/lumen For viscous solutions (i.e. blood components, parenteral nutrition, contrast media, or after obtaining blood sample) use: Peripheral IV = 10 mL Midline or Central Line = 20 mL/lumen, Pre-op (day of surgery) sodium chloride flush 0.9 % injection 5-40 mL 5-40 mL, IntraVENous, PRN, Starting on Tue03/15/22 at 1016, Until Discontinued, Line Care, After every IV line use, For Line Patency: Peripheral IV = 5 mL; Midline or Central Line = 10 mL/lumen. If following IV push medication, administer flush at same rate as the IV push. Flush volume is determined by type of infusion therapy being given. For non-viscous solutions use: Peripheral IV = 5 mL Midline or Central Line = 10 mL/lumen For viscous solutions (i.e. blood components, parenteral nutrition, contrast media, or after obtaining blood sample) use: Peripheral IV = 10 mL Midline or Central Line = 20 mL/lumen, PACU only sodium chloride flush 0.9 % injection 5-40 mL 5-40 mL, IntraVENous, PRN, Starting on Tue03/15/22 at 1016, Until Discontinued, Line Care, After every IV line use, For Line Patency: Peripheral IV = 5 mL; Midline or Central Line = 10 mL/lumen. If following IV push medication, administer flush at same rate as the IV push. Flush volume is determined by type of infusion therapy being given. For non-viscous solutions use: Peripheral IV = 5 mL Midline or Central Line = 10 mL/lumen For viscous solutions (i.e. blood components, parenteral nutrition, contrast media, or after obtaining blood sample) use: Peripheral IV = 10 mL Midline or Central Line = 20 mL/lumen, Post-op tetracaine (TETRAVISC) 0.5 % ophthalmic solution (CANCELED) PRN, Starting on Tue03/15/22 at 0955, Until Tue03/15/22 at 1007, Intra-op 0955 (Given - Provid er: Bianca Medrano DO) FOR RECORDS PERTAINING TO PATIENTS WHO ARE OR HAVE BEEN ENROLLED IN A CHEMICAL DEPENDENCY/SUBSTANCEABUSE PROGRAM, SOME INFORMATION MAY BE OMITTED. This clinical summary was aggregated from multiple sources. Caution should be exercised in using it in the provision of clinical care. This summary normalizes information from multiple sources, and as a consequence, information in this document may materially change the coding, format and clinical context of patient data. In addition, data may be omitted in some cases. CLINICAL DECISIONS SHOULD BE BASED ON THE PRIMARY CLINICAL RECORDS. [employer] provides no warranty or guarantee of the accuracy or completeness of information in this document.
[2023-05-13 04:07] LABS: PSA, Free 0.75 ng/mL; Prostate Specific Ag 5.2 ng/mL (0.0-4.0)
== END 2023-05-12 11:47 | disposition home or self-care (01) ==
LOC: LAB 11:47
PROVIDERS: PCP Nurse Practitioner Primary Care; Visit Provider Urology
DX: N40.0 Benign prostatic hyperplasia without lower urinary tract symptoms (principal); R97.20 Elevated prostate specific antigen [PSA]; Z80.42 Family history of malignant neoplasm of prostate
CPT/HCPCS: 36415; 84153; 84154

== ENCOUNTER 2023-07-17 00:33 | Emergency (ER) | payer OTHER, SELFPAY ==
[2023-07-17] VITALS (19 sets, daily range): BP systolic 124–175; BP diastolic 65–93; PULSE 81–108; RESP 4–22; TEMP 36.3; O2SAT 91–100; BMI 34.1
--- OUTSIDE RECORDS SUMMARY | 2023-07-17 00:37 | XMS_ITS | CCD ---
Author Name Unknown Address [address] [place] [address] Organization [facility] Care Team Providers Care Injury/Safety Hazard Assessment Name Role Phone Daniele Hernandez Primary Care Physician DO Daniele Hernandez Primary Care Provider MD Cora Lee Attending Provider House , Sr Daniele Levy Primary Care Provider SR DANIELE HERNANDEZ Primary Care Unavailable BIANCA MEDRANO Admitting Unavailable BIANCA MEDRANO Attending Unavailable BIANCA MEDRANO Admitting Unavailable BIANCA MEDRANO Attending Unavailable HOUSE, DR FALCON Admitting Unavailable HOUSE, DR FALCON Attending Unavailable HOUSE, DR FALCON Primary Care Unavailable HOUSE, DR FALCON Consulting Unavailable HOUSE, DR FALCON Admitting Unavailable HOUSE, DR FALCON Attending Unavailable HOUSE, DR FALCON Primary Care Unavailable HOUSE, DR FALCON Consulting Unavailable LUMichael .CORA Admitting Unavailable LUMichael .CORA Attending Unavailable HOUSE, DR FALCON Primary Care Unavailable JESUS .CORA Consulting Unavailable LUMichael .CORA Admitting Unavailable LUMichael .CORA Attending Unavailable HOUSE, DR FALCON Primary Care Unavailable JESUS .CORA Consulting Unavailable Daniele Hernandez Primary Care Physician [phone] Cora Lee Attending Unavailable Cora Lee Attending Unavailable Cora Lee Attending Unavailable Allergies Allergy Classification Reported Allergen(s) Allergy Type Date of Onset Reaction(s) Facility (1 source) No Known Medication Allergies; Translations: [No Known Medication Allergies] Propensity to adverse reactions (disorder) [facility] Repository Medications Current Medications Medication [...] week(s), # 28 tab(s), Refills(s) 0, Pharmacy: [facility], 176, cm, 09/14/21 14:27:00 EDT, Height/Length [...] Daily, # 30 cap(s), Refills(s) 3, Pharmacy: [facility], 176, cm, 11/18/21 10:41:00 EDT, Height/Length [...] Long-term current use of drug therapy; Translations: [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 #1.00TIFF Normal [facility] 11-07-2022 Lab Reports [id number] #1.00CD:127 Normal [facility] Urology Office/Clinic Noteon 10-28-2022 Urology Office/Clinic Note [...] upon bx and 21% likelihood of detecting Catlin score >7 cancer. MRI of prostate 12/07/21 [...] 4. Antiplatelet or antithrombotic long-term use (Z79.02: residential (current) use of antithrombotics/anti platelets) Plavix, hx 2v CABG 5 years ago. Elevated risk of periop complications. Needs medical/cardiac clearance for future procedures. Follow-up With When Contact Information Jesus ROD, Cora Gupta, URKallie, URO Additional Instructions: 6 mos PSA FT Patient Education Prostate Cancer Screening I, Loraine Pedraza, personally scribed for Dr. Lee on 10/27/2022 10:01:06. . Documentation recorded by the scribmichael, Loraine Pedraza, accurately reflects the services(s) I [...] virus vaccine, (more content not included)... Normal [facility] Comment on above: Result Comment: Elec tronically Signed By: Cora Lee MD\.br\Date and Time Signed: 10/27/22 23:13 EDT\.br\Electronically Co-Signed By: Loraine Pedraza\.br\Date and Time Co-Signed: 10/27/22 10:01 EDT Patient Educationon 10-28-19 23 Patient Education Oncology Prostate Cancer Screening Prostate [...] Where to find more information ? The [place] [employer]: www.cancer.org ? [place] [employer]: www.auanet.org Contact a health care [...] adds flu (more content not included)... Normal [facility] Screenson 10-27-2022 Screens [id number]#1.00CD:127 Normal [facility] Screens [id number] 8#1.00CD:127 Normal [facility] CBC AUTO DIFFon 07-13-2022 BASO # 0.0 103/ul Normal 0.0-0.1 [facility] Comment on above: Performed By: #### C BC #### [facility] [address] [address] [address] Jurgen Nunn Basophils/100 WBC (Bld) 0.6 % Normal 0.2-2.0 [facility] Comment on above: Performed By: #### C BC #### [facility] [address] [address] [address] Jurgen Nunn EO # 0.1 103/ul Normal 0.0-0.7 [facility] Comment on above: Performed By: #### C BC #### [facility] [address] [address] [address] Jurgen Nunn Eosinophils/100 WBC (Bld) 1.4 % Normal 0.9-7.0 [facility] Comment on above: Performed By: #### C BC #### [facility] [address] [address] [address] Jurgen Nunn Erythrocyte distribution width (RBC) [Ratio] 13.3 % Normal 11.0-15.0 [facility] Comment on above: Performed By: #### C BC #### [facility] [address] [place] [address] Dr. Jurgen Nunn Hematocrit (Bld) [Volume fraction] 49.5 % Normal 42.0-54.0 [facility] Comment on above: Performed By: #### C BC #### [facility] [address] [place] [address] Dr. Jurgen Nunn Hemoglobin (Bld) [Mass/Vol] 16.7 g/dL Normal 14.0-18.0 [facility] Comment on above: Performed By: #### C BC #### [facility] [address] [place] [address] Dr. Jurgen Nunn IG # 0.05 10e3/ul Critically high 0.00-0.03 [facility] Comment on above: Performed By: #### C BC #### [facility] [address] [address] [address] Jurgen Nunn IG % 0.8 % Critically high 0.0-0.5 [facility] Comment on above: Performed By: #### C BC #### [facility] [address] [place] [address] Dr. Jurgen Nunn LYMPH # 2.2 103/ul Normal 1.2-3.8 [facility] Comment on above: Performed By: #### C BC #### [facility] [address] [place] [address] Dr. Jurgen Nunn Lymphocytes/100 WBC (Bld) 34.1 % Normal 20.5-60.0 [facility] Comment on above: Performed By: #### C BC #### [facility] [address] [place] [address] Dr. Jurgen Nunn MANUAL DIFF REQ NO Normal [facility] Comment on above: Performed By: #### C BC #### [facility] [address] [place] [address] Dr. Jurgen Nunn MCH (RBC) [Entitic mass] 29.9 pg Normal 25.9-34.0 [facility] Comment on above: Performed By: #### C BC #### [facility] [address] [place] [address] Dr. Jurgen Nunn MCHC (RBC) [Mass/Vol] 33.7 g/dL Normal 29.9-35.2 [facility] Comment on above: Performed By: #### C BC #### [facility] [address] [place] [address] Dr. Jurgen Nunn MCV (RBC) [Entitic vol] 88.7 fL Normal 80.0-94.0 [facility] Comment on above: Performed By: #### C BC #### [facility] [address] [place] [address] Dr. Jurgen Nunn MONO # 0.6 103/ul Normal 0.3-0.8 [facility] Comment on above: Performed By: #### C BC #### [facility] [address] [place] [address] Dr. Jurgen Nunn Monocytes/100 WBC (Bld) 8.8 % Normal 1.7-12.0 [facility] Comment on above: Performed By: #### C BC #### [facility] [address] [place] [address] Dr. Jurgne Nunn NEUT # 3.5 103/ul Normal 1.4-6.5 [facility] Comment on above: Performed By: #### C BC #### [facility] [address] [place] [address] Dr. Jurgen Nunn Neutrophils/100 WBC (Bld) 54.3 % Normal 43.0-75.0 [facility] Comment on above: Performed By: #### C BC #### [facility] [address] [place] [address] Dr. Jurgen Nunn Platelet mean volume (Bld) [Entitic vol] 10.1 fL Normal 9.5-13.5 [facility] Comment on above: Performed By: #### C BC #### [facility] [address] [place] [address] Dr. Jurgen Nunn PLT 227 103/ul Normal 150-450 [facility] Comment on above: Performed By: #### C BC #### [facility] [address] [place] [address] Dr. Jurgen Nunn RBC 5.58 106/ul Normal 4.70-6.10 [facility] Comment on above: Performed By: #### C BC #### [facility] [address] [place] [address] Dr. Jurgen Nunn WBC 6.5 103/ul Normal 4.0-11.0 [facility] Comment on above: Performed By: #### C BC #### [facility] [address] [place] [address] Dr. Jurgen Nunn PROF 14(COMP METB)on 023 Albumin [Mass/Vol] 3.7 g/dL Normal 3.4-5.0 [facility] Comment on above: Performed By: #### T 4, CMP, TSH #### [facility] [address] [place] [address] Dr. Jurgen Nunn Albumin/Globulin [Mass ratio] 1.0 {ratio} Normal [facility] Comment on above: Performed By: #### T 4, CMP, TSH #### [facility] [address] [place] [address] Dr. Jurgen Nunn ALP [Catalytic activity/Vol] 81 U/L Normal 46-116 [facility] Comment on above: Performed By: #### T 4, CMP, TSH #### [facility] [address] [address] [address] Jurgen Nunn ALT [Catalytic activity/Vol] 21 U/L Normal 16-63 [facility] Comment on above: Performed By: #### T 4, CMP, TSH #### [facility] [address] [address] [address] Jurgen Nunn Anion gap [Moles/Vol] 9.4 mmol/L Normal [facility] Comment on above: Performed By: #### T 4, CMP, TSH #### [facility] [address] [address] [address] Jurgen Nunn AST [Catalytic activity/Vol] 18 U/L Normal 15-37 [facility] Comment on above: Performed By: #### T 4, CMP, TSH #### [facility] [address] [place] [address] Dr. Jurgen Nunn Bilirubin [Mass/Vol] 0.6 mg/dL Normal 0.2-1.0 [facility] Comment on above: Performed By: #### T 4, CMP, TSH #### [facility] [address] [place] [address] Dr. Jurgen Nunn Calcium [Mass/Vol] 9.0 mg/dL Normal 8.5-10.1 [facility] Comment on above: Performed By: #### T 4, CMP, TSH #### [facility] [address] [address] [address] Jurgen Nunn Chloride [Moles/Vol] 107 mmol/L Normal 98-107 [facility] Comment on above: Performed By: #### T 4, CMP, TSH #### [facility] [address] [address] [address] Jurgen Nunn CO2 [Moles/Vol] 29.0 mmol/L Normal 21.0-32.0 [facility] Comment on above: Performed By: #### T 4, CMP, TSH #### [facility] [address] [address] [address] Jurgen Nunn Creatinine [Mass/Vol] 1.02 mg/dL Normal 0.70-1.30 [facility] Comment on above: Performed By: #### T 4, CMP, TSH #### [facility] [address] [address] [address] Jurgen Nunn EGFR-AF SIERRA LEONEAN >60 Normal >=60 [facility] Comment on above: Performed By: #### T 4, CMP, TSH #### [facility] [address] [address] [address] Jurgen Nunn EGFR-NON AF SIERRA LEONEAN >60 Normal >=60 [facility] Comment on above: Performed By: #### T 4, CMP, TSH #### [facility] [address] [address] [address] Jurgen Nunn Globulin (S) [Mass/Vol] 3.6 g/dL Normal [facility] Comment on above: Performed By: #### T 4, CMP, TSH #### [facility] [address] [address] [address] Jurgen Nunn Glucose [Mass/Vol] 100 mg/dL Normal 74-106 [facility] Comment on above: Performed By: #### T 4, CMP, TSH #### [facility] [address] [address] [address] Jurgen Nunn Potassium [Moles/Vol] 4.4 mmol/L Normal 3.5-5.1 [facility] Comment on above: Performed By: #### T 4, CMP, TSH #### [facility] [address] [address] [address] Jurgen Nunn Protein [Mass/Vol] 7.3 g/dL Normal 6.4-8.2 [facility] Comment on above: Performed By: #### T 4, CMP, TSH #### [facility] [address] [address] [address] Jurgen Nunn Sodium [Moles/Vol] 141 mmol/L Normal 136-145 [facility] Comment on above: Performed By: #### T 4, CMP, TSH #### [facility] [address] [address] [address] Jurgen Nunn Urea nitrogen [Mass/Vol] 13.0 mg/dL Normal 7.0-18.0 [facility] Comment on above: Performed By: #### T 4, CMP, TSH #### [facility] [address] [place] [address] Dr. Jurgen Nunn Urea nitrogen/Creatinine [Mass ratio] 12.7 mg/mg Normal [facility] Comment on above: Performed By: #### T 4, CMP, TSH #### [facility] [address] [place], [place] [id number] Dr. Jurgen Nunn T4on 07-13-2022 T4 [Mass/Vol] 9.50 ug/dL Normal 4.50-12.10 [facility] Comment on above: Performed By: #### T 4, CMP, TSH #### [facility] [address] [place] [address] Dr. Jurgen Nunn TSHon 07-13-2022 TSH 1.890 uIU/mL Normal 0.358-3.740 [facility] Comment on above: Performed By: #### T 4, CMP, TSH #### [facility] [address] [place] [address] Dr. Jurgen Nunn PSA, FREE AND TOTAL RATIOon 04-23-2022 % Free PSA 14.0 % Normal [facility] Comment on above: Result Comment: The table [...] men. Performed By: #### P SAFREE #### [facility] [address] [place] [address] Dr. Jurgen Nunn Prostate specific Ag [Mass/Vol] 5.3 ng/mL Critically high 0.0-4.0 [facility] Comment on above: Result Comment: Sylvester LOWE methodology. . According to the [place] [employer], Serum PSA should decrease and [...] disease. Performed By: #### P SAFREE #### [facility] [address] [address] [address] Jurgen Nunn PSA, Free 0.74 ng/mL Normal N/A [facility] Comment on above: Result Comment: Sylvester LOWE methodology. Performed By: #### P SAFREE #### [facility] [address] [address] [address] Jurgen Nunn MR prostate wo/w conon 12-10 MR prostate wo/w con [facility] [place] [address] MRI Report Signed Patient: Robert Smiley MR#: [id number] : 1960 Acct:[id number] Age/Sex: 61 / M ADM Date: 12/07/21 Loc: Room: Type: [facility] Attending Dr: Cora Lee MD [...] Putnam Jr., D.O.12/10/2021 11:14 AM Dictation Location: [place] [address] Transcribed By: [facility] 12/10/21 1114 Dictated By: Bjorn Putnam Jr DO 12/10/21 1109 Signed By: 12/10/21 1114 Normal [facility] Creatinine (Bld) [Mass/Vol]O rdered By: Cora Lee on 12-07-2021 Creatinine [Mass/Vol] 1.0 mg/dL 0.6-1.3 [facility] Comment on above: ER/ESD physician is notified/shown all ISTAT results. Critical values may be confirmed by laboratory testing if deemed necessary by ER attending doctor. ISTAT XRay CREon 12-07-2021 Creatinine [Mass/Vol] 1.0 mg/dL Normal 0.6-1.3 [facility] Comment on above: Result Comment: ER/E SD physician is notified/shown all ISTAT results. Critical values may be confirmed by laboratory testing if deemed necessary by ER attending doctor. Performed By: #### I SCRE #### [address] Point of Care testing , ISTAT GFR ( > 60 [facility] Comment on above: Result Comment: GFR estimated reference range: According to KDOQI guidelines, <60 ml/min/1.73m2 is sufficient to diagnose a patient with chronic kidney disease. PERFORMED BY: [place] [address] PATHOLOGIST PIPEMAN ANNE MCFARLAND M.D. Performed By: #### I SCRE #### [address] Point of Care testing , ISTAT GFR (Non- Am > 60 [facility] Comment on above: Performed By: #### I SCRE #### [address] Point of Care testing , No Panel InformationOrdered By: Cora Lee on 12-07-2021 POC Estimated GFR > 60 [facility] Comment on above: GFR estimated refere nce range: According to KDOQI guidelines, <60 ml/min/1.73m2 is sufficient to diagnose a patient with chronic kidney disease. POC Estimated GFR Non- Amer > 60 [facility] PSA, FREE AND TOTAL RATIOon 10-29-2021 % Free PSA 13.5 % Normal [facility] Comment on above: Result Comment: [...] men. Performed By: #### P SAFREE #### [facility] [address] [address] [address] Jurgen Nunn Prostate specific Ag [Mass/Vol] 4.9 ng/mL Critically high 0.0-4.0 [facility] Comment on above: Result Comment: Sylvester rodriguez ECLIA methodology. . According to the [place] [employer], Serum PSA should decrease and [...] disease. Performed By: #### P SAFREE #### [facility] [address] [place], [place] [address] Dr. Jurgen Nunn PSA, Free 0.66 ng/mL Normal N/A [facility] Comment on above: Result Comment: Roch michael ECLIA methodology. Performed By: #### P SAFREE #### [facility] [address] [address] [address] Jurgen Nunn CBC AUTO DIFFon 08-20-2021 BASO # 0.0 103/ul Normal 0.0-0.1 [facility] Comment on above: Performed By: #### C BC #### [facility] [address] [place] [address] Dr. Jurgen Nunn Basophils/100 WBC (Bld) 0.4 % Normal 0.2-2.0 [facility] Comment on above: Performed By: #### C BC #### [facility] [address] [place] [address] Dr. Jurgen Nunn EO # 0.1 103/ul Normal 0.0-0.7 [facility] Comment on above: Performed By: #### C BC #### [facility] [address] [place] [address] Dr. Jurgen Nunn Eosinophils/100 WBC (Bld) 1.5 % Normal 0.9-7.0 [facility] Comment on above: Performed By: #### C BC #### [facility] [address] [place] [address] Dr. Jurgen Nunn Erythrocyte distribution width (RBC) [Ratio] 13.3 % Normal 11.0-15.0 [facility] Comment on above: Performed By: #### C BC #### [facility] [address] [place] [address] Dr. Jurgen Nunn Hematocrit (Bld) [Volume fraction] 49.4 % Normal 42.0-54.0 [facility] Comment on above: Performed By: #### C BC #### [facility] [address] [place] [address] Dr. Jurgen Nunn Hemoglobin (Bld) [Mass/Vol] 16.7 g/dL Normal 14.0-18.0 [facility] Comment on above: Performed By: #### C BC #### [facility] [address] [place] [address] Dr. Jurgen Nunn IG # 0.06 10e3/ul Critically high 0.00-0.03 [facility] Comment on above: Performed By: #### C BC #### [facility] [address] [place] [address] Dr. Jurgen Nunn IG % 0.8 % Critically high 0.0-0.5 [facility] Comment on above: Performed By: #### C BC #### [facility] [address] [place] [address] Dr. Jurgen Nunn LYMPH # 2.5 103/ul Normal 1.2-3.8 [facility] Comment on above: Performed By: #### C BC #### [facility] [address] [place] [address] Dr. Jurgen Nunn Lymphocytes/100 WBC (Bld) 35.1 % Normal 20.5-60.0 [facility] Comment on above: Performed By: #### C BC #### [facility] [address] [place] [address] Dr. Jurgen Nunn MANUAL DIFF REQ NO Normal [facility] Comment on above: Performed By: #### C BC #### [facility] [address] [place] [address] Dr. Jurgen Nunn MCH (RBC) [Entitic mass] 30.0 pg Normal 25.9-34.0 [facility] Comment on above: Performed By: #### C BC #### [facility] [address] [place] [address] Dr. Jurgen Nunn MCHC (RBC) [Mass/Vol] 33.8 g/dL Normal 29.9-35.2 [facility] Comment on above: Performed By: #### C BC #### [facility] [address] [place] [address] Dr. Jurgen Nunn MCV (RBC) [Entitic vol] 88.7 fL Normal 80.0-94.0 [facility] Comment on above: Performed By: #### C BC #### [facility] [address] [place] [address] Dr. Jurgen Nunn MONO # 0.6 103/ul Normal 0.3-0.8 [facility] Comment on above: Performed By: #### C BC #### [facility] [address] [address] [address] Jurgen Nunn Monocytes/100 WBC (Bld) 7.7 % Normal 1.7-12.0 [facility] Comment on above: Performed By: #### C BC #### [facility] [address] [address] [address] Jurgen Nunn NEUT # 3.9 103/ul Normal 1.4-6.5 [facility] Comment on above: Performed By: #### C BC #### [facility] [address] [place] [address] Dr. Jurgen Nunn Neutrophils/100 WBC (Bld) 54.5 % Normal 43.0-75.0 [facility] Comment on above: Performed By: #### C BC #### [facility] [address] [place] [address] Dr. Jurgen Nunn Platelet mean volume (Bld) [Entitic vol] 10.6 fL Normal 9.5-13.5 [facility] Comment on above: Performed By: #### C BC #### [facility] [address] [place] [address] Dr. Jurgen Nunn PLT 246 103/ul Normal 150-450 [facility] Comment on above: Performed By: #### C BC #### [facility] [address] [place] [address] Dr. Jurgen Nunn RBC 5.57 106/ul Normal 4.70-6.10 [facility] Comment on above: Performed By: #### C BC #### [facility] [address] [place] [address] Dr. Jurgen Nunn WBC 7.2 103/ul Normal 4.0-11.0 The [facility] Comment on above: Performed By: #### C BC #### [facility] [address] [place], [place] [id number] Dr. Jurgen Nunn LIPID PROFILEon 08-20-2021 CHOL-HDL RATIO NORM SEE BELOW Normal [facility] Comment on above: Result Comment: 3.3 - 4.4 LOW RISK 4.4 - 7.1 AVERAGE RISK 7.1 - 11.0 MODERATE RISK >11.0 HIGH RISK Performed By: #### C MP, LIPID #### [facility] [address] [address] [address] Jurgen Nunn Cholesterol [Mass/Vol] 281 mg/dL Critically high <=200 [facility] Comment on above: Performed By: #### C MP, LIPID #### [facility] [address] [address] [address] Jurgen Nunn Cholesterol in HDL [Mass/Vol] 66 mg/dL Critically high 40-60 [facility] Comment on above: Performed By: #### C MP, LIPID #### [facility] [address] [address] [address] Jurgen Nunn Cholesterol in LDL [Mass/Vol] 196.2 mg/dL Normal [facility] Comment on above: Performed By: #### C MP, LIPID #### [facility] [address] [address] [address] Jurgne Nunn Cholesterol.total/Chol esterol in HDL [Mass ratio] 4.3 {ratio} Normal [facility] Comment on above: Performed By: #### C MP, LIPID #### [facility] [address] [address] [address] Jurgen Nunn HDL NORMAL > or = 60 mg/dl - LOW CARDIOVASCULAR RISK <40 mg/dl - HIGH CARDIOVASCULAR RISK Normal [facility] Comment on above: Performed By: #### C MP, LIPID #### [facility] [address] [address] [address] Jurgen Nunn LDL CALC NORMAL SEE BELOW Normal [facility] Comment on above: Result Comment: <100 mg/dl OPTIMAL 100 - 129 mg/dl NEAR OR ABOVE OPTIMAL 130 - 159 mg/dl BORDERLINE HIGH 160 - 189 mg/dl HIGH >190 mg/dl VERY HIGH Performed By: #### C MP, LIPID #### [facility] [address] [address] [address] Jurgen Nunn Triglyceride [Mass/Vol] 94 mg/dL Normal <=150 [facility] Comment on above: Performed By: #### C MP, LIPID #### [facility] [address] [address] [address] Jurgen Nunn VLDL CALC 18.8 mg/dL Normal [facility] Comment on above: Performed By: #### C MP, LIPID #### [facility] [address] [place] [address] Dr. Jurgen Nunn PROF 14(COMP METB)on 022 Albumin [Mass/Vol] 3.7 g/dL Normal 3.4-5.0 [facility] Comment on above: Performed By: #### C MP, LIPID #### [facility] [address] [place] [address] Dr. Jurgen Nunn Albumin/Globulin [Mass ratio] 0.9 {ratio} Normal [facility] Comment on above: Performed By: #### C MP, LIPID #### [facility] [address] [place] [address] Dr. Jurgen Nunn ALP [Catalytic activity/Vol] 89 U/L Normal 46-116 [facility] Comment on above: Performed By: #### C MP, LIPID #### [facility] [address] [place] [address] Dr. Jurgen Nunn ALT [Catalytic activity/Vol] 25 U/L Normal 16-63 [facility] Comment on above: Performed By: #### C MP, LIPID #### [facility] [address] [place] [address] Dr. Jurgen Nunn Anion gap [Moles/Vol] 14.3 mmol/L Normal [facility] Comment on above: Performed By: #### C MP, LIPID #### [facility] [address] [place] [address] Dr. Jurgen Nunn AST [Catalytic activity/Vol] 16 U/L Normal 15-37 [facility] Comment on above: Performed By: #### C MP, LIPID #### [facility] [address] [place] [address] Dr. Jurgen Nunn Bilirubin [Mass/Vol] 0.6 mg/dL Normal 0.2-1.3 [facility] Comment on above: Performed By: #### C MP, LIPID #### [facility] [address] [place] [address] Dr. Jurgen Nunn Calcium [Mass/Vol] 8.6 mg/dL Normal 8.5-10.1 [facility] Comment on above: Performed By: #### C MP, LIPID #### [facility] [address] [place] [address] Dr. Jurgen Nunn Chloride [Moles/Vol] 105 mmol/L Normal 98-107 [facility] Comment on above: Performed By: #### C MP, LIPID #### [facility] [address] [place] [address] Dr. Jurgen Nunn CO2 [Moles/Vol] 24.7 mmol/L Normal 22.0-30.0 [facility] Comment on above: Performed By: #### C MP, LIPID #### [facility] [address] [place] [address] Dr. Jurgen Nunn Creatinine [Mass/Vol] 0.97 mg/dL Normal 0.66-1.25 [facility] Comment on above: Performed By: #### C MP, LIPID #### [facility] [address] [place] [address] Dr. Jurgen Nunn EGFR-AF SIERRA LEONEAN >60 Normal >=60 [facility] Comment on above: Performed By: #### C MP, LIPID #### [facility] [address] [place] [address] Dr. Jurgen Nunn EGFR-NON AF SIERRA LEONEAN >60 Normal >=60 The [facility] Comment on above: Performed By: #### C MP, LIPID #### [facility] [address] [place] [address] Dr. Jurgen Nunn Globulin (S) [Mass/Vol] 4.0 g/dL Normal [facility] Comment on above: Performed By: #### C MP, LIPID #### [facility] [address] [place] [address] Dr. Jurgen Nunn Glucose [Mass/Vol] 91 mg/dL Normal 74-106 [facility] Comment on above: Performed By: #### C MP, LIPID #### [facility] [address] [place] [address] Dr. Jurgen Nunn Potassium [Moles/Vol] 4.0 mmol/L Normal 3.4-5.0 [facility] Comment on above: Performed By: #### C MP, LIPID #### [facility] [address] [address] [address] Jurgen Nunn Protein [Mass/Vol] 7.7 g/dL Normal 6.1-8.2 [facility] Comment on above: Performed By: #### C MP, LIPID #### [facility] [address] [address] [address] Jurgen Nunn Sodium [Moles/Vol] 140 mmol/L Normal 137-145 [facility] Comment on above: Performed By: #### C MP, LIPID #### [facility] [address] [place] [address] Dr. Jurgen Nunn Urea nitrogen [Mass/Vol] 19.0 mg/dL Critically high 7.0-18.0 [facility] Comment on above: Performed By: #### C MP, LIPID #### [facility] [address] [place] [address] Dr. Jurgen Nunn Urea nitrogen/Creatinine [Mass ratio] 19.6 mg/mg Normal [facility] Comment on above: Performed By: #### C MP, LIPID #### [facility] [address] [place] [address] Dr. Jurgen Nunn CBC W/DIFFon 04-25-2018 ABS BASOPHILS 0.0 10*3/uL Normal 0.0-0.2 [facility] Comment on above: Performed By: #### 5 0103 #### [facility] [address] [facility] [place], [place] [id number] [place] [address] ABS IMM GRANS 0.0 10*3/uL Normal 0.0-0.2 [facility] Comment on above: Performed By: #### 5 0103 #### [facility] [address] [facility] [place] [place] [id number] [place] [address] ABS NEUTROPHILS 3.6 10*3/uL Normal 1.6-7.6 The [facility] Comment on above: Performed By: #### 5 0103 #### [facility] [address] [place] [address], [facility] Basophils/100 WBC (Bld) 0.5 % Normal 0.0-1.0 [facility] Comment on above: Performed By: #### 5 0103 #### [facility] [address] [place] [address], [facility] Eosinophils (Bld) [#/Vol] 0.1 10*3/uL Normal 0.0-0.5 [facility] Comment on above: Performed By: #### 5 0103 #### [facility] [address] [facility] [address], [facility] Eosinophils/100 WBC (Bld) 1.2 % Normal 0.0-6.0 The [facility] Comment on above: Performed By: #### 5 0103 #### [facility] [address] [facility] [address] Erythrocyte distribution width (RBC) [Ratio] 13.2 % Normal 11.5-15.0 The [facility] Comment on above: Performed By: #### 5 0103 #### [facility] [address] [facility] [place] [address], [facility] Hematocrit (Bld) [Volume fraction] 48.4 % Normal 39.0-50.0 The [facility] Comment on above: Performed By: #### 5 0103 #### [facility] [address] [facility] [address], [facility] Hemoglobin (Bld) [Mass/Vol] 16.1 g/dL Normal 13.0-17.0 The [facility] Comment on above: Performed By: #### 5 0103 #### [facility] [address] [place] [address], [facility] IMMATURE GRANS 0.7 % Normal 0.0-1.0 The [facility] Comment on above: Performed By: #### 5 3 #### [facility] [address] [facility] [place] [place] [address], [facility] Lymphocytes (Bld) [#/Vol] 1.5 10*3/uL Normal 1.2-4.0 The [facility] Comment on above: Performed By: #### 5 3 #### [facility] [address] [facility] [address], [facility] Lymphocytes/100 WBC (Bld) 25.9 % Normal 20.0-45.0 The [facility] Comment on above: Performed By: #### 102 #### [facility] [address] [place] [address], [facility] MCH (RBC) [Entitic mass] 29.8 pg Normal 27.0-33.0 The [facility] Comment on above: Performed By: #### 102 #### [facility] [address] [facility]. [address] MCHC (RBC) [Mass/Vol] 33.3 g/dL Normal 32.0-35.0 The [facility] Comment on above: Performed By: #### 102 #### [facility] [address] [facility] [place] [address], [facility] MCV (RBC) [Entitic vol] 89.6 fL Normal 82.0-98.0 The [facility] Comment on above: Performed By: #### 5 3 #### [facility] [address] [facility] [place] [address], [facility] Monocytes (Bld) [#/Vol] 0.5 10*3/uL Normal 0.1-1.0 The [facility] Comment on above: Performed By: #### 3 #### [facility] [address] [place] [address], [facility] MONOS 9.3 % Normal 5.0-12.0 The [facility] Comment on above: Performed By: #### 5 0103 #### [facility] [address] [facility] [place] [address], [facility] Neutrophils/100 WBC (Bld) 62.4 % Normal 40.0-72.0 The [facility] Comment on above: Performed By: #### 5 102 #### [facility] [address] [facility] [place] [address], [facility] Nucleated RBC/100 WBC (Bld) [Ratio] 0 % Normal 0-0 The [facility] Comment on above: Performed By: #### 5 102 #### [facility] [address] [facility] [place] [address], [facility] PLAT CNT 230 10*3/uL Normal 150-400 [facility] Comment on above: Performed By: #### 5 102 #### [facility] [address] [facility] [place] [address], [facility] RBC (Bld) [#/Vol] 5.40 10*6/uL Normal 4.20-5.70 The [facility] Comment on above: Performed By: #### 5 102 #### [facility] [address] [facility] [place] [address], [facility] WBC (Bld) [#/Vol] 5.83 10*3/uL Normal 4.00-10.60 The [facility] Comment on above: Performed By: #### 5 102 #### [facility] [address] [facility]. [address] COMP METABOLIC PANELon 04-25 Albumin [Mass/Vol] 4.3 g/dL Normal 3.5-5.7 [facility] Comment on above: Performed By: #### 0 012, [id number] #### [facility] [address] [facility] [place] [address], [facility] ALKALINE PHOSPH 86 IU/L Normal 34-104 The [facility] Comment on above: Performed By: #### 0 012, [id number] #### [facility] [address] [place] [address], [place] ALT [Catalytic activity/Vol] 18 U/L Normal 7-52 The [facility] Comment on above: Performed By: #### 0 012, 46760 #### [facility] [address] [place] [address], [place] AST [Catalytic activity/Vol] 18 U/L Normal 13-39 The [facility] Comment on above: Performed By: #### 0 012, 47388 #### [facility] [address] [place] [address], [place] Bilirubin [Mass/Vol] 0.8 mg/dL Normal 0.3-1.0 The [facility] Comment on above: Performed By: #### 0 012, 01660 #### [facility] [address] [place] [address], [place] Calcium [Mass/Vol] 9.6 mg/dL Normal 8.6-10.3 [facility] Comment on above: Performed By: #### 0 012, 53972 #### [facility] [address] [place] [address], [place] Chloride [Moles/Vol] 103 mmol/L Normal 98-[address] [facility] Comment on above: Performed By: #### 0 012, 78873 #### [facility] [address] [place] [address], [place] CO2 [Moles/Vol] 31 mmol/L Normal 21-31 [facility] Comment on above: Performed By: #### 0 012, 79372 #### [facility] [address] [place] [address], [place] Creatinine [Mass/Vol] 1.06 mg/dL Normal 0.70-1.30 The [facility] Comment on above: Performed By: #### 0 012, 39225 #### [facility] [address] [place] [address], [place] GFR/1.73 sq M predicted among blacks MDRD (S/P/Bld) [Vol rate/Area] mL/min/{1.73_m2} Normal >60 The [facility] Comment on above: Performed By: #### 0 0121, 46780 #### [facility] [address] [place] [address], [place] GFR/1.73 sq M predicted among non-blacks MDRD (S/P/Bld) [Vol rate/Area] mL/min/{1.73_m2} Normal >60 The [facility] Comment on above: Performed By: #### 0 0121, 74101 #### [facility] [address] [place] [address], [place] Glucose [Mass/Vol] 101 mg/dL High 70-100 The [facility] Comment on above: Performed By: #### 0 0121, 14627 #### [facility] [address] [place] [address], [place] Potassium [Moles/Vol] 4.3 mmol/L Normal 3.5-5.1 The [facility] Comment on above: Performed By: #### 0 0121, 09404 #### [facility] [address] [place] [address], [place] Protein [Mass/Vol] 7.2 g/dL Normal 6.0-8.3 [facility] Comment on above: Performed By: #### 0 0121, 14415 #### [facility] [address] [place] [address], [place] Sodium [Moles/Vol] 138 mmol/L Normal 136-145 [facility] Comment on above: Performed By: #### 0 0121, 75721 #### [facility] [address] [place] [address], [facility] Urea nitrogen [Mass/Vol] 12 mg/dL Normal 7-[address] [facility] Comment on above: Performed By: #### 0 0121, 90770 #### [facility] [address] [place] [address], [facility] LIPID PROFILEon 04-25-2018 Cholesterol [Mass/Vol] 143 mg/dL Normal 120-200 Th e [facility] Comment on above: Result Comment: CHOL ESTEROL REFERENCE RANGE: 20 YEARS AND OLDER CARDIOVASCULAR RISK Less than 200 mg/dl Low Risk 200 to 239 mg/dl Borderline Risk 240 mg/dl and greater High Risk Performed By: #### 0 0121, 19982 #### [facility] [address] [facility] [address], [facility] Cholesterol in HDL [Mass/Vol] 57 mg/dL Normal 23-[address] [facility] Comment on above: Result Comment: Slig ht variation in normal range could be due to gender and/or age. HDL CHOLESTEROL REFERENCE RANGE: 20 years and older Cardiovascular Risk > or =60 mg/dL Desirable 40 TO 59 mg/dL Low Risk <40 mg/dL High Risk Performed By: #### 0 0121, 68807 #### [facility] [address] [facility] [place] [address], [facility] Cholesterol in LDL [Mass/Vol] 72 mg/dL Normal 0-[address] [facility] Comment on above: Result Comment: LDL IS A CALCULATION LDL IS ONLY VALID IF THE TRIG IS LESS THAN 400. Performed By: #### 0 0121, 26592 #### [facility] [address] [place] [address], [facility] Cholesterol.total/Chol esterol in HDL [Mass ratio] 2.5 {ratio} Normal .0-4.[address] [facility] Comment on above: Performed By: #### 0 0121, 50701 #### [facility] [address] [place] [address], [facility] NON-HDL CHOLESTEROL 86 mg/dL Normal [facility] Comment on above: Performed By: #### 0 0121, 38389 #### [facility] [address] [place] [address], [facility] Triglyceride [Mass/Vol] 71 mg/dL Normal 40-149 The [facility] Comment on above: Result Comment: TRIG LYCERIDE REFERENCE RANGE: 20 YEARS AND OLDER CARDIOVASCULAR RISK LESS THAN 150 mg/dl LOW RISK 150 TO 199 mg/dl BORDERLINE RISK 200 mg/dl AND GREATER HIGH RISK Performed By: #### 0 0121, 32099 #### [facility] [address] [place] [address], [facility] VLDL CHOL 14 mg/dL Normal 0-40 [facility] Comment on above: Performed By: #### 0 0121, 53229 #### [facility] [address] [place], [place] [id number] [place] [address] Vital Signs Date Time Vital Sign Value Performing Clinician Yohana trimble 10-27-2022 09:33-0400 Blood Pressure Location Cora Lue [facility] 10-27-2022 09:33-0400 Diastolic blood pressure 70 mm[Hg] Cora Lue [facility] 10-27-2022 09:33-0400 Heart rate 75 /min Cora Lue [facility] 10-27-2022 09:33-0400 Systolic blood pressure 125 mm[Hg] Cora Lue [facility] 04-28-2022 11:20-0500 Blood Pressure Location Cora Lue [facility] 04-28-2022 11:20-0500 Diastolic blood pressure 76 mm[Hg] Cora Lue [facility] 04-28-2022 11:20-0500 Heart rate 68 /min [facility] L[facility] 04-28-2022 11:20-0500 Respiratory rate 16 /min Cora Lue [facility] 04-28-2022 11:20-0500 Systolic blood pressure 128 mm[Hg] [facility] 03-15-2022 10:30-0400 Diastolic blood pressure 66 mm[Hg] Bianca Medrano DO Work Phone: [facility] [employer] 03-15-2022 10:30-0400 Heart rate 70 /min Bianca Medrano DO Work Phone: [email or web address] 03-15-2022 10:30-0400 Respiratory rate 18 /min Bianca Medrano DO Work Phone: [facility] 03-15-2022 10:30-0400 SaO2% (BldA) [Mass fraction] 96 % Bianca Medrano DO Work Phone: [facility] 03-15-2022 10:30-0400 Systolic blood pressure 113 mm[Hg] Bianca Medrano DO Work Phone: [facility] 03-15-2022 10:10-0400 Body temperature 97.2 [degF] Bianca Medrano DO Work Phone: [facility] 03-15-2022 09:00-0400 Body height 175.3 cm Bianca Medrano DO Work Phone: [facility] 03-15-2022 09:00-0400 Body mass index (BMI) [Ratio] 35.59 kg/m2 Bianca Medrano DO Work Phone: [facility] 03-15-2022 09:00-0400 Body weight 109.32 kg Bianca Medrano DO Work Phone: [facility] 12-23-2021 08:06-0400 Blood Pressure Location Cora L[facility] 12-23-2021 08:06-0400 Diastolic blood pressure 134 mm[Hg] Cora L[facility] 12-23-2021 08:06-0400 Heart rate 98 /min Cora Lue [facility] 12-23-2021 08:06-0400 Systolic blood pressure 149 mm[Hg] Cora L[facility] 11-18-2021 10:40-0400 Blood Pressure Location Cora Lue [facility] [employer] 11-18-2021 10:40-0400 Diastolic blood pressure 72 mm[Hg] Cora Lue [facility] 11-18-2021 10:40-0400 Heart rate 68 /min Cora Lue [facility] 11-18-2021 10:40-0400 Systolic blood pressure 127 mm[Hg] Cora L[facility] 09-14-2021 14:21-0400 Blood Pressure Location [facility] L[facility] [employer] 09-14-2021 14:21-0400 Diastolic blood pressure 78 mm[Hg] Cora L[facility] [employer] 09-14-2021 14:21-0400 Heart rate 72 /min Cora Lue [facility] [employer] 09-14-2021 14:21-0400 Respiratory rate 16 /min Cora Lue [facility] [employer] 09-14-2021 14:21-0400 Systolic blood pressure 123 mm[Hg] [facility] [employer] Encounters Encounter Date Encounter Type Care Provider Facility Start: 05-25-2023 ambulatory Cora M. Lue Facility[facility] Start: 05-04-2023 End: 05-05-2023 ambulatory Cora M. Lue Facility[facility] Start: 05-04-2023 End: 05-04-2023 Patient encounter procedure Cora M. Lue [facility] [employer] Start: 10-27-2022 End: 10-28-2022 ambulatory Cora M. Lue Facility:[facility] Start: 10-27-2022 End: 10-27-2022 Patient encounter procedure Cora M. Lue [facility] [employer] Start: 07-18-2022 Encounter for genera l adult medical examination without abnormal findings DR DANIELE HERNANDEZ [facility] Start: 07-13-2022 End: 07-14-[address] DANIELE HERNANDEZ Facility:[facility] Start: 07-13-2022 End: 07-14-2022 Encounter for general adult medical examination without abnormal findings DR DANIELE HERNANDEZ Facility:[facility] Start: 04-28-2022 End: 04-28-2022 Patient encounter procedure Cora Lee [facility] Start: 04-22-2022 End: 04-23-2022 ambulatory CORA LEE . Facility:[facility] Start: 03-15-2022 End: 03-15-2022 ambulatory SR DANIELE HERNANDEZ [facility] Start: 03-15-2022 End: 03-15-2022 Subsequent hospital visit by physician Bianca Medrano DO Work Phone: [facility] Start: 03-05-2022 ambulatory BIANCA MEDRANO [facility] Start: 12-23-2021 End: 12-23-2021 Patient encounter procedure Cora Lee [facility] Start: 12-07-2021 End: 12-07-2021 Patient encounter procedure DO Daniele Hernandez Work Phone: [facility] [place] Start: 11-18-2021 End: 11-18-2021 Patient encounter procedure [facility] [facility] Start: 10-27-2021 End: 10-28-2021 ambulatory CORA LEE . Facility:H1 Start: 09-14-2021 End: 09-14-2021 Patient encounter procedure Cora Lee [facility] Start: 08-20-2021 End: 08-21-[address] DANIELE HERNANDEZ Facility:H1 Procedures Date Procedure Procedure Detail Performing Clinician Start: 12-07-2021 MR prostate wo/w con DO Daniele Hernandez Work Phone: Start: 08-20-[address] ANTHONY HERNANDEZ Comment on above: Performed By: #### P SAD #### [facility] [address] [address] [address] Jurgen Nunn Appendectomy Cora Lee Extraction of cataract Cora Lee Placement of stent i n cardiac conduit Cora Lee Tonsillectomy Cora Lee Plan of Treatment Date Care Activity Detail Author Start: 03-15-2022 End: 03-15-2022 Xcapsl ctrc rmvl insj io lens prosth w/o ecp EYE CATARACT EMULSIFICATION IOL IMPLANT Combined forms of age-related cataract of right eye 03/15/2022 9:45 AM [facility] Start: 12-14-2021 Influenza vaccination Flu vaccine (# 1) [facility] Start: 1980 DTaP/Tdap/Td vaccine (1 - Tdap) DTaP/Tdap/Td vaccine (1 - Tdap) [facility] Start: [birth year]-24-1962 COVID-19 Vaccine (#1) COVID-19 Vacci ne (#1) [facility] End: 03-15-2022 INITIATE PACU OXYGEN THERAPY PROTOCOL Initiate PACU Oxygen Therapy Protocol Respiratory Care Routine Continuous until discontinued starting 03/15/2022 [facility] Comment on above: Continuous until dis continued starting 03/15/2022 Oxygen therapy [Mini mum Data Set] Initiate Oxygen Therapy Protocol Respiratory Care Routine Daily until discontinued starting 03/15/2022 [facility] Work Phone: Comment on above: Daily until disconti nued starting 03/15/2022 Oxygen therapy [Mini mum Data Set] Initiate Oxygen Therapy Protocol Respiratory Care Routine Daily until discontinued starting 03/15/2022 [facility] Work Phone: Comment on above: Daily until disconti nued starting 03/15/2022 Immunizations Immunization Date Immunization Notes Care Provider Julia ames 04-01-2022 influenza virus vaccine, unspecified formulation Cora Lue [facility] 04-29-2021 SARS-CoV-2 (COVID-19 ) mRNA-1273 vaccine Cora Lue [facility] 04-10-2021 influenza virus vaccine, unspecified formulation Cora Lue [facility] 10-08-2020 SARS-CoV-2 (COVID-19 ) mRNA-1273 vaccine Cora Lue [facility] 09-12-2020 SARS-CoV-2 (COVID-19 ) mRNA-1273 vaccine Cora Lue [facility] 05-16-2020 SARS-CoV-2 (COVID-19 ) mRNA-1273 vaccine Cora Lue [facility] Payers Date Payer Category Payer Unknown [id number] 2.16.8 [id number] 1960 Unknown [id number] 2.16.84 [id number] 1960 Unknown [id number] 2.16.84 [id number] 1960 Unknown [id number] 2.16.84 [id number] 1960 Unknown [id number] 2.16.84 [id number] 1960 Unknown [id number] 2.16.8 [id number] 1960 Unknown [id number] 2.16.8 [id number] 1960 Unknown [id number] 2.16.8 [id number] 1958 Medicaid [id number] Self-pay Self Pay [id number] Unknown [place] BC/BS [id number] Social History Date Type Detail Facility Start: 09-14-2021 End: 04-28-2022 Tobacco smoking status Never smoked tobacco (finding) [facility] Sex Assigned At Male [facility] Start: 1960 Sex Assigned At Male F [facility] Start: 03-15-2022 Alcohol intake Ex-drinker (finding) [employer] Work Phone: Start: 1960 Sex Assigned At Not on file [facility] [employer] Work Phone: Start: 03-05-2022 End: 03-15-2022 Exposure to SARS-CoV-2 (event) Not sure [facility] [employer] Tobacco smoking status Never [facility] Medical Equipment Procedure Code Equipment Code Equipment Origin al Text Equipment Identifier Dates Lens Iol Envista Mx60 22.5d - [id number] Start: 09-04-2018 Lens Intraocular Bcnvx +22.5 Diopt 6x12.5 Mm Envista - [id number] Start: 03-15-2022 Functional Status Date Assessment Result Facility 10-27-2022 Functional Status N/A [facility] 04-28-2022 Functional Status N/A [facility] 12-23-2021 Functional Status N/A [facility] 11-18-2021 Functional Status N/A [facility] Clinical Notes 09-14-2021 to 10-27-2022 Misty Alvarado RN - 03/15/2022 10:43 AM Bill Alvarado RN - 03/15/2022 10:35 AM Julieth Cifuentes RN - 03/11/2022 10:58 AM Julieth Cifuentes RN - 03/11/2022 10:45 AM EDT Note Date & Type Note Facility 10-27-2022 Hospital Discharge instructions Follow Up Care 10/27/2022 10:03:28 With:Jesus ROD, OFELIA Friedman, URO Address: [facility] [place][note 2] [place] [address] [phone] When: Unknown [facility] 10-27-2022 Hospital Discharge instructions Patient Education 10/27/2022 [...] treatment? Where to find more information The [place] [employer]: www.cancer.org [place]: www.auanet.org Contact a health care [...] provider. Document Revised: 10/26/2021 Document Reviewed: 10/26/2021 Elsevier Patient Education 2022 [employer] Follow Up Care 04/28/2022 12:57:05 With:Jesus ROD, OFELIA Friedman, URO Address: When: Unknown [facility] 04-28-2022 Hospital Discharge instructions Patient Education [...] if anything looks unusual. Men with a xsjnmc-dlrk-wdzhav risk for skin cancer may want to see a hide or skin buffer (compliance manager) for an annual body check. Where to find more information National Cancer [place]: https://www.cancer.gov/about-cance r/screening Centers for Disease Control and Prevention: https://www.cdc.gov/cancer/dcpc/pr evention/screening.htm [place] [employer]: https://www.cancer.org/latest-news /0-epivsz-vpkfulzpe-rvqad-ozw-yju. html Contact a health care provider if: [...] 01/27/2017 Document Revised: 01/19/2019 Document Reviewed: 01/27/2017 Credii Patient Education 2020 [employer]. Follow Up Care 12/23/2021 08:37:49 With:Jesus ROD, OFELIA Friedman, URO Address: When:6 months Comments:w/ PSA F/T [facility] 03-15-2022 History of Present illness Narrative [...] a message [facility] this encounter [facility] [employer] Work Phone: 03-15-2022 Hospital Discharge instructions Bianca Medrano, DO - 03/15/2022 10:16 AM EDT SAME [...] the healing period. The office number is [phone]. Take surgery bag and all eye drops to Dr. Medrano's office tomorrow at 10:05am. You may resume your normal diet. Start your eye drops tomorrow after your post-op appointment: Ofloxacin/Polytrim one drop to the operated eye 4 times daily Prednisolone one drop to the operated eye 4 times daily documented in this encounter [employer] Phone: 12-23-2021 Hospital Discharge instructions Patient Education [...] urethra. Follow these instructions at home: Take bhng-gut-qbiixhe and prescription medicines only as told by [...] 05/02/2006 Document Revised: 03/27/2019 Document Reviewed: 06/06/2017 Credii Patient Education 2019 [employer]. Follow Up Care 12/18/2021 14:19:29 With:Jesus ROD, OFELIA Friedman, URO Address: When:Within 4 Month(s) Comments:PSA F/T [facility] 11-18-2021 Hospital Discharge instructions Patient Education 11/18/2021 [...] if anything looks unusual. Men with a doafve-jerw-doadam risk for skin cancer may want to see a hide or skin buffer (compliance manager) for an annual body check. Where to find more information National Cancer [place]: https://www.cancer.gov/about-cance r/screening Centers for Disease Control and Prevention: https://www.cdc.gov/cancer/dcpc/pr evention/screening.htm [place] [employer]: https://www.cancer.org/latest-news /1-gfthxh-lduckrnrh-fugte-ovj-cdz. html Contact a health care provider if: [...] 01/27/2017 Document Revised: 01/19/2019 Document Reviewed: 01/27/2017 Credii Patient Education 2020 [employer] Follow Up Care 09/14/2021 14:58:32 With:Jesus ROD, OFELIA Friedman, URO Address: When: Unknown [facility] 09-14-2021 Hospital Discharge instructions Patient Education [...] prostate. Follow these instructions at home: Take ihuj-bke-inxvodl and prescription medicines only as told by [...] 04/29/2001 Document Revised: 07/15/2018 Document Reviewed: 01/20/2017 Credii Patient Education 2020 [employer]. Follow Up Care 09/08/2021 13:18:17 With:Cora Lee MD, URL, URO Address: [id number] When:10/26/2021 Comments:w/psa [facility] Evaluation + Plan note Future Appointments Appointment Date:11/18/2021 10:15:00 AM Scheduled Provider:Cora Lee MD Location:[facility] Appointment Type:URO Office Visit Diagnostic Tests PendingPSA Free & Total 09/14/21 [facility] Evaluation + Plan note Future Appointments Appointment Date:04/28/2022 10:15:00 AM Scheduled Provider:Cora Lee MD Location:[facility] Appointment Type:URO Office Visit Diagnostic Tests PendingPSA Free & Total 12/23/21 [facility] Evaluation + Plan note Future Appointments Appointment Date:10/27/2022 09:30:00 AM Scheduled Provider:Cora Lee MD Location:[facility] Appointment Type:URO Office Visit Diagnostic Tests PendingPSA Free & Total 04/28/22 [facility] Evaluation + Plan note Future Appointments Appointment Date:05/04/2023 09:45:00 AM Scheduled Provider:Cora Lee MD Location:[facility] Appointment Type:URO Office Visit Diagnostic Tests PendingPSA Free & Total 10/27/22 [facility] Evaluation + Plan note Future Appointments Appointment Date:05/25/2023 11:00:00 AM Scheduled Provider:Cora Lee MD Location:[facility] Appointment Type:URO Office Visit [facility] Evaluation note No assessment inform ation available [facility] Work Phone: Evaluation note Diagnosis 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 Other and combined forms of senile cataract documented in this encounter [facility] Work Phone: Hospital course Narrative No data available for this section [facility] Progress note No data available for this section [facility] Summary Purpose Family History No Family [...] section and content) DATE CREATED AUTHOR 02/25/2019 [facility] DATE CREATED AUTHOR AUTHOR'S ORGANIZ ATION 12/13/2021 [facility] DATE CREATED AUTHOR AUTHOR'S ORGANIZ ATION 03/15/2022 [facility] DATE CREATED AUTHOR AUTHOR'S ORGANIZ ATION 07/20/2022 [facility] DATE CREATED AUTHOR AUTHOR'S ORGANIZ ATION 05/23/[address] [facility] Care Team (unrecognized sect ion and content) Team Status: Inactive Member Role Status Dates Daniele Hernandez DO Primary Care Provider Active Cora Lee MD Attending Provider Active Team Status: Active Member Role Status Dates Daniele Hernandez DO Primary Care Provider Active Injury/Safety Hazard Assessment Relationship Specialty Start Date End Date Sr Daniele Hernandez DO [address] [place] [address] PCP - General Family Medicine 03/10/22 Goals (unrecognized section and content) Goals may be documented in a n alternate section Reason for Visit (unrecogniz ed section and content) Specialty Diagnoses / Procedures Referred By Contac t Referred To Contact Diagnoses Combined forms of age-related cataract of right eye COMBINED FORMS OF AGE RELATED CAT 1+NS, 3+PSC, 2+CS Procedures [place] XCAPSL CTRC RMVL INSJ IO LENS PROSTH W/O ECP EYE CATARACT EMULSIFICATION IOL IMPLANT Bianca Medrano, DO [address] [place] [address] [facility] [address] [place] [address] Referral ID Status Reason Start Date Expiration Date Visits Re quested Visits Authorized [id number] 1 1 Scheduled Active and Recently Administ ered Medications (unrecognized section and content) Medication Order 03/13/2022 03/14/2022 03/15/2022 phenylephrine (MYDFRIN) 2.5 % ophthalmic solution 1 drop 1 drop, Right Eye, SEE ADMIN INSTRUCTIONS, Starting on Tue03/15/22 at 0851, Until Discontinued, To operative eye(s) for 3-5 doses every 5 minutes, starting 30 minutes prior to surgery, [facility] - enter number of doses based on [...] prior to surgery., Pre-op (day of surgery) 09 (Given - [...] (NoRateChange - Provider: Bjorn Doyle APRN - AUTOMOTIVE TECHNICIAN)1005 (Anesthesia Volume Adjustment - Provider: JESSICA Matos [...] mL 5-40 mL, IntraVENous, PRN, Starting on 10/31/22 at 1016, Until Discontinued, Line Care, After [...] BE BASED ON THE PRIMARY CLINICAL RECORDS. [employer] [facility]. provides no warranty or guarantee of the accuracy or completeness of information in this document.
--- NOTE | 2023-07-17 00:46 | ECG_ITS ---
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
--- NOTE | 2023-07-17 00:46 | XR_ITS ---
The [address] [address] Patient Name: TEMO RICHEY MRN: [id number] date: 1960 Sex: M Assigned Patient Location: ER Current Patient Location: ED.MAIN Accession/Order Number: [id number] Exam Date: 07/17/2023 00:54 Report Date: 07/17/2023 01:16 At the request of: ALANNAH LYN Procedure: XR chest 1V XR chest 1V 07/16/2023 11:54 PM RECORDS TECH: History: chest pain Comparison: None. Technique: 1 view chest Findings: The cardiomediastinal silhouette is normal. The lungs are clear without infiltrate, effusion, or pneumothorax. The bones are intact. XR/XR chest 1V Impression: No acute cardiopulmonary process. Electronically authenticated by: DOROTHY SERRATO Date: 07/17/2023 01:16
--- NOTE | 2023-07-17 00:51 | ED.CHESTPAI1 ---
HPI - Chest Pain General Chief Complaint: Chest Pain Stated Complaint: Chest Pain Time Seen by Provider: 07/17/23 00:41 Source: patient Mode of arrival: Wheelchair Limitations: no limitations History of Present Illness HPI narrative: mid sternal chest pain that woke patient from sleep around 11pm. He took some Tums in case it might be indigestion but that didn't decrease the pain. He finally decided to come to the ED for evaluaiton and by the time he arrived his pain almost gone. he denied any recent illness or injury or other activity to account for the pain. PMHx includes AMI with cardiac stenting at [facility] in 2015. He sees [facility] as his PCP and does not currently see a hand booked folder and stitcher. He takes plavix daily along with occasionally taking meloxicam. Related Data Home Medications Medication Instructions Recorded Confirmed clopidogrel 75 mg tablet 75 mg PO DAILY 07/17/23 07/17/23 meloxicam 15 mg tablet 15 mg PO DAILY 07/17/23 07/17/23 Allergies Allergy/AdvReac Type Severity Reaction Status Date / Time No Known Drug Allergies Allergy Verified 07/17/23 00:43 PFSH PFS Social History Smoking status: Never smoker Exam Narrative Exam Narrative: Nurses notes and vital signs reviewed and patient is not hypoxic. Afebrile General: Well-appearing and in no apparent distress. Skin: Warm, dry, no pallor noted. Eye: Pupils are equal, round and EOMI. No scleral icterus. Cardiovascular: Regular Rate and Rhythm without murmur, gallop or rub. Respiratory: No accessory muscle use or respiratory distress. Lungs are clear to auscultation, no wheezing, rales or rhonchi Chest Wall: Sternum tenderness to palpation without crepitus or subcutaneous emphysema. Musculoskeletal: normal ROM, no calf or popliteal tenderness, no lower extremity edema/swelling GI: Abdomen is soft, non-distended. Normal bowel sounds. No tenderness to palpation. No rebound, guarding, or rigidity noted. Neurological: A&O x4. No cranial nerve dysfunction observed. No truncal ataxia. Moves all extremities. Sensation intact. Psychiatric: Cooperative and interactive. Normal mood and affect. Constitutional Vital Signs, click to edit/add: Last Vital Signs Temp 97.4 F L 07/17/23 00:37 Pulse 81 07/17/23 02:50 Resp 20 07/17/23 02:50 BP 124/88 07/17/23 02:31 Pulse Ox 97 07/17/23 02:50 O2 Del Method Room Air 07/17/23 00:37 Course Vital Signs Vital signs: Vital Signs Temperature 97.4 F L 07/17/23 00:37 Pulse Rate 90 07/17/23 00:37 Respiratory Rate 20 07/17/23 00:37 Blood Pressure 175/87 H 07/17/23 00:37 Pulse Oximetry 97 07/17/23 00:37 Oxygen Delivery Method Room Air 07/17/23 00:37 Temperature 97.4 F L 07/17/23 00:37 Pulse Rate 81 07/17/23 02:50 Respiratory Rate 20 07/17/23 02:50 Blood Pressure 124/88 07/17/23 02:31 Pulse Oximetry 97 07/17/23 02:50 Oxygen Delivery Method Room Air 07/17/23 00:37 MDM - Chest Pain MDM Narrative Medical decision making narrative: Patient was placed on cardiac nurse specialist and EKG obtained. Blood drawn and sent for evaluation. Portable chest x-ray obtained. He was given 162 mg aspirin orally and oral sublingual nitroglycerin. IV Zofran also given. Chest pain relieved after getting SL Nitro x1 dose. CBC normal. CXR negative for acute pathology. Troponin elevated at 137 so he was started on heparin --> bolus and drip per ACS protocol. The patient was informed of results and of the need to go to facility capable of cardiac intervention - his previous stenting was at [facility] and we have a local group from [facility] who covers our facility, so call placed to [facility] to discuss transfer at this request. About 10 minutes later, the patient told me that he wanted to go to [facility] instead. Called to [facility] to cancel transfer. Call placed to [facility] to request transfer to their facility. Dr Jung is the hospitalist at [facility]. We faxed him a copy of the EKG to review and then he and I discussed the case by phone. He accepted the patient's transfer to [facility]. Repeat troponin 851.1. Patient stable for transfer. ETA for ambulance arrival to transport the patient to [facility] is 4am. Lab Data Attestation: I reviewed the patient's lab results. Labs: Lab Results 07/17/23 07/17/23 Range/Units 00:55 02:57 WBC 7.4 (4.0-11.0) 10^3/uL RBC 5.45 (4.70-6.10) 10^6/uL Hgb 16.2 (14.0-18.0) g/dL Hct 49.2 (42.0-54.0) % MCV 90.3 (80.0-94.0) fL MCH 29.7 (25.9-34.0) pg MCHC 32.9 (29.9-35.2) g/dL RDW 12.9 (11.0-15.0) % Plt Count 284 (150-450) 10^3/uL MPV 10.5 (9.5-13.5) fL Neut % (Auto) 37.1 L (43.0-75.0) % Lymph % (Auto) 51.6 (20.5-60.0) % Lewis % (Auto) 7.8 (1.7-12.0) % Eos % (Auto) 2.4 (0.9-7.0) % Baso % (Auto) 0.4 (0.2-2.0) % Neut # (Auto) 2.7 (1.4-6.5) 10^3/uL Lymph # (Auto) 3.8 (1.2-3.8) 10^3/uL Lewis # (Auto) 0.6 (0.3-0.8) 10^3/uL Eos # (Auto) 0.2 (0.0-0.7) 10^3/uL Baso # (Auto) 0.0 (0.0-0.1) 10^3/uL Abs Immat Gran (auto) 0.05 H (0.00-0.03) 10^3/uL Imm/Tot Granulo (auto) 0.7 H (0.0-0.5) % PT 9.4 (9.0-11.6) sec INR <0.93 APTT 21.7 L (22.3-36.2) sec Sodium 142 (136-145) mmol/L Potassium 3.6 (3.5-5.1) mmol/L Chloride 105 (98-107) mmol/L Carbon Dioxide 25.1 (21.0-32.0) mmol/L Anion Gap 15.5 BUN 14.0 (7.0-18.0) mg/dL Creatinine 1.05 (0.70-1.30) mg/dL Est GFR ( Amer) >60 (>=60) Est GFR (Non-Af Amer) >60 (>=60) BUN/Creatinine Ratio 13.3 Glucose 115 H (74-106) mg/dL Calcium 9.0 (8.5-10.1) mg/dL Troponin I High Sens 137.4 H* 851.1 H* (4.0-76.1) pg/mL NT-Pro-B Natriuret Pep 804.0 (<=900.0) pg/mL Imaging Data Chest x-ray: Attestation: I have reviewed the pertinent imaging results. Radiologist's impression: ITS Impressions Chest X-Ray 07/17/23 00:46 Impression: No acute cardiopulmonary process. Electronically authenticated by: DOROTHY SERRATO Date: 07/17/2023 01:16 ECG Data Attestation: I personally reviewed and interpreted this ECG as follows: Interpretation: EKG interpretation: Emergency Department physician interpretation. Normal sinus rhythm at 93bpm. Normal axis, nonspecific T wave changes. normal intervals and no ST segment elevation or depression. Heart Score History: Moderately Suspicious ECG: NS Repolarization Age: >45-<65 years Risk Factors: 1 or 2 Risk Factors Troponin: >3X Normal Limit Total Heart Score Recommendations & Risks:: 6 Discharge Plan Discharge Chief Complaint: Chest Pain Clinical Impression: Acute non-ST elevation myocardial infarction (NSTEMI), Chest pain Patient Disposition: [facility] Time of Disposition Decision: 01:50 Discharge Location: [facility]
[2023-07-17 01:07] LABS: Basophils Percent Auto 0.4 % (0.2-2.0); Eosinophils Absolute Auto 0.2 10^3/uL (0.0-0.7); Eosinophils Percent Auto 2.4 % (0.9-7.0); Hematocrit 49.2 % (42.0-54.0); Hemoglobin 16.2 g/dL (14.0-18.0); Immature Granulocytes Abs Auto 0.05 10^3/uL (0.00-0.03); Immature Granulocytes Pct Auto 0.7 % (0.0-0.5); Lymphocytes Absolute Auto 3.8 10^3/uL (1.2-3.8); Lymphocytes Percent Auto 51.6 % (20.5-60.0); Mean Corpuscular HGB Conc 32.9 g/dL (29.9-35.2); Mean Corpuscular Hemoglobin 29.7 pg (25.9-34.0); Mean Corpuscular Volume 90.3 fL (80.0-94.0); Mean Platelet Volume 10.5 fL (9.5-13.5); Monocytes Absolute Auto 0.6 10^3/uL (0.3-0.8); Monocytes Percent Auto 7.8 % (1.7-12.0); Neutrophils Absolute Auto 2.7 10^3/uL (1.4-6.5); Neutrophils Percent Auto 37.1 % (43.0-75.0); Platelet Count 284 10^3/uL (150-450); Red Blood Count 5.45 10^6/uL (4.70-6.10); Red Cell Distribution Width 12.9 % (11.0-15.0); White Blood Count 7.4 10^3/uL (4.0-11.0)
[2023-07-17] MEDS: ONDANSETRON PF 4 MG/2 ML VIAL IV (01:07)
[2023-07-17] MEDS: NITROGLYCERIN 0.4 MG BOTTLE 0.400000000000000022 MG SL (01:07)
[2023-07-17] MEDS: ASPIRIN 81 MG TAB.CHEW 162 MG PO (01:12)
[2023-07-17 01:17] LABS: Partial Thromboplastin Time 21.7 sec (22.3-36.2); Prothrombin Time 9.4 sec (9.0-11.6)
[2023-07-17 01:18] LABS: INR <0.93
--- NOTE | 2023-07-17 01:19 | PC.NURSE ---
Patient was woken up with sternal chest pain radiating into left arm. hx of [place], treated at [facility] with stent placement. patient reports pain was similar to [place]. patient nauseated. placed on employment service specialist, IV and labs drawn. Radiology notified. EKG obtained and given to physician. patient does not see a e commerce merchandising coordinator in the area. takes plavix.
[2023-07-17 01:40] LABS: Anion Gap 15.5; BUN Creatinine Ratio 13.3; Carbon Dioxide 25.1 mmol/L (21.0-32.0); Chloride 105 mmol/L (98-107); Estimated GFR (African America >60 (>=60); Estimated GFR (Non-African Ame >60 (>=60); Glucose 115 mg/dL (74-106); Potassium 3.6 mmol/L (3.5-5.1); Sodium 142 mmol/L (136-145)
[2023-07-17 01:45] LABS: Troponin I High Sensitivity 137.4 pg/mL (4.0-76.1)
[2023-07-17] MEDS: HEPARIN SODIUM (PORCINE) 5,000 UNIT/ML VIAL 4000 UNIT IV (02:17)
[2023-07-17] MEDS: HEPARIN SODIUM,PORCINE/D5W 25,000 UNIT/500 ML IV.SOLN 19.6799999999999997 UNIT IV (02:18)
[2023-07-17 03:26] LABS: Troponin I High Sensitivity 851.1 pg/mL (4.0-76.1)
== END 2023-07-17 04:30 | disposition short-term general hospital (02) ==
PROVIDERS: Emergency Provider Emergency Medicine; PCP Nurse Practitioner Primary Care
DX: R07.9 Chest pain, unspecified (principal); I21.4 Non-ST elevation (NSTEMI) myocardial infarction; I25.2 Old myocardial infarction; Z95.5 Presence of coronary angioplasty implant and graft; Z79.899 Other long term (current) drug therapy
CPT/HCPCS: 36415; 71045; 80048; 83880; 84484; 85025; 85610; 85730; 93005; 96374; 96375; 99285

== ENCOUNTER 2023-08-16 10:57 | Outpatient (OUT) | payer OTHER, SELFPAY ==
[2023-08-16 11:26] LABS: Hematocrit 41.4 % (42.0-54.0); Hemoglobin 13.1 g/dL (14.0-18.0); Mean Corpuscular HGB Conc 31.6 g/dL (29.9-35.2); Mean Corpuscular Hemoglobin 29.3 pg (25.9-34.0); Mean Corpuscular Volume 92.6 fL (80.0-94.0); Platelet Count 441 10^3/uL (150-450); Red Blood Count 4.47 10^6/uL (4.70-6.10); Red Cell Distribution Width 13.8 % (11.0-15.0); White Blood Count 8.6 10^3/uL (4.0-11.0)
[2023-08-16 12:07] LABS: Alanine Aminotransferase 21 U/L (16-63); Albumin Globulin Ratio 0.8; Albumin Level 3.3 g/dL (3.4-5.0); Alkaline Phosphatase 141 U/L (46-116); Anion Gap 16.7; Aspartate Amino Transferase 16 U/L (15-37); BUN Creatinine Ratio 18.9; Bilirubin Total 0.5 mg/dL (0.2-1.0); Carbon Dioxide 19.8 mmol/L (21.0-32.0); Chloride 106 mmol/L (98-107); Estimated GFR (African America >60 (>=60); Estimated GFR (Non-African Ame 55 (>=60); Globulin 3.9 g/dL; Glucose 102 mg/dL (74-106); Potassium 4.5 mmol/L (3.5-5.1); Sodium 138 mmol/L (136-145); Total Protein 7.2 g/dL (6.4-8.2)
== END 2023-08-16 10:58 | disposition home or self-care (01) ==
LOC: LAB 10:58
PROVIDERS: PCP Nurse Practitioner Primary Care; Visit Provider Nurse Practitioner
DX: I21.9 Acute myocardial infarction, unspecified (principal); D64.9 Anemia, unspecified
CPT/HCPCS: 36415; 80053; 85027

== ENCOUNTER 2023-12-13 14:18 | Emergency (ER) | payer OTHER, SELFPAY ==
[2023-12-13] VITALS (21 sets, daily range): BP systolic 70–111; BP diastolic 50–73; PULSE 79–129; TEMP 36.8; O2SAT 95–100; BMI 30.4
--- NOTE | 2023-12-13 14:27 | ECG_ITS ---
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
--- NOTE | 2023-12-13 14:49 | ED.ARRPALP1 ---
HPI - Arrhythmia/Palpitations General Chief Complaint: Arrhythmia/Palpitations Stated Complaint: Glen[place] blood pressure Time Seen by Provider: 12/13/23 14:49 Source: patient Mode of arrival: walk-in History of Present Illness HPI narrative: This patient is here after going to cardiac rehab at our facility today. Our cardiac rehab nurse noticed that his heart rate was increased and did a rhythm strip on him he gotten into a sinus rhythm over 140s 150 bpm. He brought him down to the ER for evaluation. This gentleman has a history of quadruple bypass surgery in July of this year at [facility]. He is rehabbed wonderfully and is actually doing a lot of yard work without any shortness of breath or discomfort. Of significance, he ran out of his beta-roman last week and did not get a refill. He also ran out of his Eliquis a month ago and did not get a refill. Here in the emergency room he is awake alert [place] x 3 vital signs are stable. His heart rate is slowed to 110 sinus tach. Heart rate is totally symptomatic. Related Data Home Medications ?Medication ?Instructions ?Recorded ?Confirmed clopidogrel 75 mg tablet 75 mg PO DAILY 07/17/23 07/17/23 meloxicam 15 mg tablet 15 mg PO DAILY 07/17/23 07/17/23 metoprolol succinate 25 mg 12.5 mg PO DAILY 12/13/23 12/13/23 tablet,extended release 24 hr Allergies Allergy/AdvReac Type Severity Reaction Status Date / Time No Known Drug Allergies Allergy Verified 07/17/23 00:43 [facility] Social History Smoking status: Never smoker Exam Narrative Exam Narrative: Patient is awake alert [place] x 3 very pleasant. The cardiac rehab personnel brought us down some EKGs that they ran off and he did have a sinus tachycardia. He was placed on the monitor and at this time when I examined him his heart rate was 112. He is awake alert very pleasant he has no shortness of breath or dyspnea at all. Examination of his lung showed his lungs to be completely clear with no wheeze rales or rhonchi. Heart sounds are normal other than mild tachycardia but I hear no clicks rubs gallops or murmur. His sternotomy incision is healed nicely. His legs show no evidence of edema phlebitis erythema or cellulitis. There is no ropiness or tenderness. We were able to confirm his medication doses at his pharmacy so I will give him a refill for that. He was given a single dose of beta-roman intravenously here and his heart rate slowed down to 80-90. Since he is totally asymptomatic and under the care of a local plate glass polisher I do not believe we need to work him up any further. i Constitutional Vital Signs, click to edit/add: Last Vital Signs Temp 98.3 F 12/13/23 14:29 Pulse 110 H 12/13/23 14:50 Resp 26 H 12/13/23 14:50 BP 100/73 12/13/23 14:32 Pulse Ox 98 12/13/23 14:50 O2 Del Method Room Air 12/13/23 14:29 Course Vital Signs Vital signs: Vital Signs Pulse Rate 129 H 12/13/23 14:27 Respiratory Rate 23 H 12/13/23 14:27 Blood Pressure 111/64 12/13/23 14:27 Pulse Oximetry 95 12/13/23 14:27 Temperature 98.3 F 12/13/23 14:29 Pulse Rate 110 H 12/13/23 14:50 Respiratory Rate 26 H 12/13/23 14:50 Blood Pressure 100/73 12/13/23 14:32 Pulse Oximetry 98 12/13/23 14:50 Oxygen Delivery Method Room Air 12/13/23 14:29 MDM - Arrhythmia/Palpitations MDM Narrative Medical decision making narrative: Patient presents with sinus tachycardia during exercise cardiac rehab but he is asymptomatic here. He ran out of his beta-roman at least a week or so ago. He responded very nice to a single dose of beta-roman and I will give him a refill for his previous prescription. He is going to follow-up with his plate glass polisher this week. Discharge Plan Discharge Stand Alone Forms: Portal Instructions Chief Complaint: Arrhythmia/Palpitations Clinical Impression: H/O medication noncompliance Patient Disposition: Home, Self-Care Time of Disposition Decision: 15:17 Prescriptions / Home Meds: No Action clopidogrel 75 mg tablet 75 mg PO DAILY meloxicam 15 mg tablet 15 mg PO DAILY metoprolol succinate 25 mg tablet extended release 24 hr 12.5 mg PO DAILY Print Language: Mohawk Additional Instructions: Restart your metoprolol immediately today. Follow-up with your plate glass polisher for any further changes in your prescription or prescription refill needs Referrals: Physician,Non-Staff, [Primary Care Provider] - 1 week
[2023-12-13] MEDS: METOPROLOL TARTRATE 5 MG/5 ML VIAL IVP (14:56)
[2023-12-13 15:56] LABS: Hematocrit 46.9 % (42.0-54.0); Hemoglobin 15.3 g/dL (14.0-18.0); Mean Corpuscular HGB Conc 32.6 g/dL (29.9-35.2); Mean Corpuscular Hemoglobin 29.3 pg (25.9-34.0); Mean Corpuscular Volume 89.7 fL (80.0-94.0); Mean Platelet Volume 11.7 fL (9.5-13.5); Platelet Count 305 10^3/uL (150-450); Red Blood Count 5.23 10^6/uL (4.70-6.10); Red Cell Distribution Width 14.8 % (11.0-15.0); White Blood Count 15.9 10^3/uL (4.0-11.0)
[2023-12-13] MEDS: 0.9 % SODIUM CHLORIDE 1,000 ML 1000 ML IV (15:57)
[2023-12-13 16:07] LABS: Anion Gap 11.2; Carbon Dioxide 24.7 mmol/L (21.0-32.0); Chloride 103 mmol/L (98-107); Glucose 117 mg/dL (74-106); Potassium 3.9 mmol/L (3.5-5.1); Sodium 135 mmol/L (136-145)
[2023-12-13 16:08] LABS: Alanine Aminotransferase 17 U/L (16-63); Albumin Globulin Ratio 0.9; Albumin Level 3.4 g/dL (3.4-5.0); Alkaline Phosphatase 77 U/L (46-116); Aspartate Amino Transferase 16 U/L (15-37); BUN Creatinine Ratio 16.3; Bilirubin Total 1.3 mg/dL (0.2-1.0); Calcium 9.3 mg/dL (8.5-10.1); Estimated GFR (African America 59 (>=60); Estimated GFR (Non-African Ame 49 (>=60); Globulin 3.9 g/dL; Total Protein 7.3 g/dL (6.4-8.2)
[2023-12-13 16:09] LABS: Troponin I High Sensitivity 8.5 pg/mL (4.0-76.1)
[2023-12-13 16:16] LABS: Eosinophils Absolute Manual 0.15 10^3/uL (0.00-0.70); Monocytes Absolute Manual 2.06 10^3/uL (0.30-0.80); Segmented Neut Absolute Manual 10.97 10^3/uL (1.4-6.5)
--- NOTE | 2023-12-13 16:45 | XR_ITS ---
[address] [address] Patient Name: TEMO RICHEY MRN: [id number] date: 1960 Sex: M Assigned Patient Location: ER Current Patient Location: ER Accession/Order Number: [id number] Exam Date: 12/13/2023 17:00 Report Date: 12/13/2023 17:17 At the request of: JESSICA OROZCO Procedure: XR chest 1V Exam: Radiographs: XR chest 1V Reason for exam: Hypotension Comparison: Plain films dated 07/17/2023 XR/XR chest 1V IMPRESSION: Sternotomy. CABG. Remainder the chest is unremarkable. Electronically authenticated by: TASHA DESAI Date: 12/13/2023 17:17
[2023-12-13 17:41] LABS: Bilirubin Urine NEGATIVE (NEGATIVE); Blood Urine NEGATIVE (NEGATIVE); Clarity Urine CLEAR (CLEAR); Color Urine YELLOW (YELLOW); Glucose Urine UA NEGATIVE (NEGATIVE); Ketones Urine NEGATIVE (NEGATIVE); Leukocyte Esterase Urine NEGATIVE (NEGATIVE); Nitrite Urine NEGATIVE (NEGATIVE); Protein Urine TRACE mg/dL (NEG/TRACE); Specific Gravity Urine 1.025 (1.005-1.025)
[2023-12-13 17:49] LABS: Urine Microscopic Indicated NO
[2023-12-13] MEDS: CEFTRIAXONE 1,000 MG in 0.9 % SODIUM CHLORIDE 50 ML 100 MG IV (18:25)
== END 2023-12-13 19:06 | disposition home or self-care (01) ==
PROVIDERS: Emergency Provider Emergency Medicine Emergency Medical Services
DX: R00.0 Tachycardia, unspecified (principal); T44.7X6A Underdosing of beta-adrenoreceptor antagonists, initial encounter; I95.9 Hypotension, unspecified; Z95.1 Presence of aortocoronary bypass graft
CPT/HCPCS: 36415; 71045; 80053; 81003; 83605; 84484; 85007; 85027; 87040; 93005; 96365; 96375; 99285; J0696

== ENCOUNTER 2024-03-01 07:10 | Outpatient (RCR) | payer OTHER, SELFPAY ==
--- NOTE | 2023-09-20 13:44 | CR1_ITS ---
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
--- NOTE | 2023-09-23 15:01 | CR1_ITS ---
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
--- NOTE | 2023-10-20 09:38 | CR1_ITS ---
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
--- NOTE | 2023-11-15 06:59 | PC.NURSE ---
Outreach letter due to lack of attendance and copy of attendance policy mailed to patient on this date. Patient has been outreached by phone prior to this letter to help facilitate their attendance in cardiac rehab.
--- NOTE | 2023-11-22 08:46 | CR1_ITS ---
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
--- NOTE | 2023-12-21 13:07 | CR1_ITS ---
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
--- NOTE | 2024-01-20 07:21 | CR1_ITS ---
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
--- NOTE | 2024-02-20 07:41 | CR1_ITS ---
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
--- NOTE | 2024-03-01 14:31 | CR1_ITS ---
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
== END 2024-03-01 14:33 | disposition home or self-care (01) ==
LOC: CR 07:10
PROVIDERS: Visit Provider Internal Medicine Cardiovascular Disease
DX: Z95.1 Presence of aortocoronary bypass graft (principal)
CPT/HCPCS: 93798

== ENCOUNTER 2024-04-03 12:45 | Outpatient (OUT) | payer OTHER, SELFPAY ==
[2024-04-03 14:02] LABS: Alanine Aminotransferase 17 U/L (16-63); Albumin Globulin Ratio 0.9; Albumin Level 3.4 g/dL (3.4-5.0); Alkaline Phosphatase 92 U/L (46-116); Anion Gap 13.1; Aspartate Amino Transferase 15 U/L (15-37); BUN Creatinine Ratio 12.9; Bilirubin Total 0.7 mg/dL (0.2-1.0); Calcium 9.3 mg/dL (8.5-10.1); Carbon Dioxide 26.1 mmol/L (21.0-32.0); Chloride 106 mmol/L (98-107); Chol HDL Ratio 3.7; Cholesterol 264 mg/dL (<=200); Estimated GFR (African America >60 (>=60 mL/min/1.73m^2); Estimated GFR (Non-African Ame 59 (>=60 mL/min/1.73m^2); Globulin 3.9 g/dL; Glucose 88 mg/dL (74-106); HDL Cholesterol 71 mg/dL (40-60); Potassium 4.2 mmol/L (3.5-5.1); Sodium 141 mmol/L (136-145); Total Protein 7.3 g/dL (6.4-8.2); Triglycerides 87 mg/dL (<=150); VLDL CHOLESTEROL 17.4 mg/dL
== END 2024-04-03 12:46 | disposition home or self-care (01) ==
LOC: LAB 12:49
DX: Z13.6 Encounter for screening for cardiovascular disorders (principal)
CPT/HCPCS: 36415; 80053; 80061

== ENCOUNTER 2024-05-25 12:28 | Outpatient (OUT) | payer OTHER, SELFPAY ==
[2024-05-26 11:08] LABS: PSA, Free 1.16 ng/mL; Prostate Specific Ag 6.5 ng/mL (0.0-4.0)
== END 2024-05-25 12:29 | disposition home or self-care (01) ==
LOC: LAB 12:29
PROVIDERS: Visit Provider Urology
DX: R97.20 Elevated prostate specific antigen [PSA] (principal)
CPT/HCPCS: 36415; 84153; 84154

== ENCOUNTER 2024-11-06 11:04 | Outpatient (OUT) | payer OTHER, SELFPAY ==
--- OUTSIDE RECORDS SUMMARY | 2024-11-06 11:10 | XMS_ITS | Clinical Summary ---
Author Organization [employer] [facility] tem Address [facility] [place] [address] Care Team Providers Care Direct Marketing Representative Name Role Phone Geovanny Merrill WHEAT GROWER-MENTALLY RETARDED TEACHER Primary Care Provider [phone] Allergies No known active allergies Medications * This document contains information received from the source organization and may not represent a complete record from that organization. atorvastatin (LIPITOR) 80 mg tablet Take 80 mg by mouth nightly. Active lisinopril (PRINIVIL,ZESTRI L) 2.5 mg tablet Take 2.5 mg by mouth daily. Active aspirin 81 mg Take 81 mg by mouth daily. Active clopidogrel (PLAVIX) 75 mg tablet Take 75 mg by mouth daily. Active Active Problems Problem Noted Date Diagnosed Date Intermittent explosive disorder 10/14/2017 Resolved Problems Problem Noted Date Diagnosed Date Resolved Date Bipolar I disorder, most rec ent episode depressed 10/13/2017 10/14/2017 Immunizations No known immunizations Social History Tobacco Use Types Packs/Day Years Used Date Smoking Tobacco: Never Smokeless Tobacco: Never Alcohol Use Standard Drinks/Week Comments Yes 0 (1 standard drink = 0.6 oz pure alcohol) occasionally but less than socially Childcare Answer Date Recorded Childcare Unknown 10/25/2018 Employment Answer Date Recorded Employment Unknown 10/25/2018 Purpose - Life Answer Date Recorded Purpose and direction in life Unknown Sex and Gender Information Value Date Recorded Sex Assigned at Not on file Legal Sex Male 11:23 AM EDT Gender Identity Not on file Sexual Orientation Not on file Last Filed Vital Signs Vital Sign Reading Time Taken Comments Blood Pressure 134/77 01/08/2021 5:59 PM EDT Pulse 102 01/08/2021 5:59 PM EDT Temperature 36.9 C (98.4 F) 01/08/2021 5:16 PM EDT Respiratory Rate 25 01/08/2021 5:59 PM EDT Oxygen Saturation 97% 01/08/2021 5:59 PM EDT Inhaled Oxygen Concentration - - Weight 104.3 kg (230 lb) 01/08/2021 5:16 PM EDT Height 175.3 cm (5' 9 ) 01/08/2021 5:16 PM EDT Body Mass Index 33.97 01/08/2021 5:16 PM EDT Plan of Treatment Health Maintenance Due Date Last Done Comments Depression Screening 1973 Tobacco Screening 1973 Adult BMI Screening 09/22/1979 DTaP,Tdap and Td Vaccines (1 - Tdap) 1980 Zoster (Shingles) Vaccine (1 of 2) 09/22/2011 COVID-19 Vaccine (4 - 2023-2 5 season) 2024 04/29/2021, 10/08/2020, 09/12/2020 Influenza Vaccine 01/14/2025 04/01/2022, 04/10/2021 Medical Devices Not on file Insurance [employer] [employer] Advance Directives * Full Code (Latest Code Status on File) Date Activated Date Inactivated Comments 10/13/2017 12:34 PM 10/19/2017 8:40 PM Care Teams Direct Marketing Representative Relationship Specialty Start Date End Date Geovanny Merrill APRN-IERNA PCP - General Primary Care 03/10/23
--- OUTSIDE RECORDS SUMMARY | 2024-11-06 11:10 | XMS_ITS | Encounter Summary ---
Author Organization [facility] Address [address] [place] [address] Phone Care Team Providers Care Senior Application Programmer Name Role Phone Generic Provider, No Assigned Pcp MD Primary Car e Provider Unavailable Encounter Details Date Type Department Care Team (Late st Contact Info) Description 11/11/2023 Scanned Document [facility] [address] [place] [place] [id number] Scanning, Generic Provider Social History Tobacco Use Types Packs/Day Years Used Date Smoking Tobacco: Never Smokeless Tobacco: Never Alcohol Use Standard Drinks/Week Comments Yes 0 (1 standard drink = 0.6 oz pur e alcohol) occasional AUDIT-C Answer Date Recorded Q1: How often do you have a drink containing alc ohol? Monthly or less 07/19/2023 Q2: How many drinks containi ng alcohol do you have on a typical day when you are drinking? 1 or 2 07/19/2023 Q3: How often do you have si x or more drinks on one occasion? Monthly 07/19/2023 Overall Financial Resource Strain (CARDIA) Answe r Date Recorded How hard is it for you to pa y for the very basics like food, housing, medical care, and heating? Not very hard 07/26/2023 PHQ-2 Answer Date Recorded Patient Health Questionnaire-2 Score 0 07/19/2023 PRAPARE - Transportation Answer Date Re corded In the past 12 months, has l ack of transportation kept you from medical appointments or from getting medications? No 07/14 In the past 12 months, has l ack of transportation kept you from meetings, work, or from getting things needed for daily living? No 07/26/2023 Housing Stability Vital Sign Answer David e Recorded In the last 12 months, was t here a time when you were not able to pay the mortgage or rent on time? No 07/26/2023 In the last 12 months, how many places have you lived? 1 07/26/2023 In the last 12 months, was t here a time when you did not have a steady place to sleep or slept in a senior care (including now)? No 07/26/2023 Sex and Gender Information Value Date Recorded Sex Assigned at Not on file Legal Sex Male 2:05 PM EST Gender Identity Not on file Sexual Orientation Not on file documented as of this encounter Plan of Treatment Upcoming Encounters Date Type Department Care Team (Late st Contact Info) Description 11/21/2024 1:30 PM EDT Office Visit [facility] [address] [facility] [address] [place] [id number] Dallas Rebolledo MD [address] [facility] [address] [place] [address] documented as of this encounter Visit Diagnoses Not on filedocumented in this encounter Additional Health Concerns Assessment Noted Time A fall risk assessment has been complete d for the patient 08/25/2023 1:22 PM EDT documented as of this encounter Care Teams Senior Application Programmer Relationship Specialty Start Date End Date Generic Provider, No Assigned Pcp, [place] [address] PCP - General Records Management Coordinator 08/25/23 documented as of this encounter
--- OUTSIDE RECORDS SUMMARY | 2024-11-06 11:10 | XMS_ITS | Encounter Summary ---
Author Organization [facility] Address [address] [place] [address] Phone Care Team Providers Care Reliability Manager Name Role Phone Generic Provider, No Assigned Pcp MD Primary Car e Provider Unavailable Encounter Details Date Type Department Care Team (Late st Contact Info) Description 01/18/2024 Scanned Document [facility] [address] [place] [phone] Scanning, Generic Provider Social History Tobacco Use [...] place to sleep or slept in a mcc (including now)? No 07/26/2023 Sex and Gender Information Value Date Recorded Sex Assigned at Not on file Legal Sex Male 2:05 PM EST Gender Identity Not on file Sexual Orientation Not on file documented as of this encounter Plan of Treatment Upcoming Encounters Date Type Department Care Team (Late st Contact Info) Description 11/21/2024 1:30 PM EDT Office Visit [facility] [address] [facility] [address] [place] [phone] Dallas Rebolledo MD [address] [facility] [address] [place] [address] documented as of this encounter Visit Diagnoses Not on filedocumented in this encounter Additional Health Concerns Assessment Noted Time A fall risk assessment has been complete d for the patient 08/25/2023 1:22 PM EDT documented as of this encounter Care Teams Reliability Manager Relationship Specialty Start Date End Date Generic Provider, No Assigned Pcp, [place] [address] PCP - General Specialty Food Products Supervisor 08/25/23 documented as of this encounter
--- OUTSIDE RECORDS SUMMARY | 2024-11-06 11:10 | XMS_ITS | Patient Health Record ---
Author Organization [facility] vices Address [address] [place], [place] [id number] Care Team Providers Care Health Informatics Specialist Name Role Phone Nohemy Mills Primary Care Provider Geovanny Walsh Unavailable [phone] Karina Nieves Unavailable [phone] Allergies No Known Allergies Results Component Value Reference Range Notes Urine Dip Reviewed date:06/28/2024 02:28:54 PM Interpretation: Performing Lab: Notes/Report: Bilirubin neg Occult Blood neg Glucose neg Ketones neg WBC + Nitrite neg Ph 6.0 Protein + Specific [place] 1.025 Color Yellow Urine Dip Reviewed date:07/16/2024 05:58:13 PM Interpretation: Performing Lab: Notes/Report: Bilirubin neg Occult Blood neg Glucose neg Ketones neg WBC neg Nitrite neg Ph 6.0 Protein neg Specific [place] 1.035 Color yellow Appearance clear Reason For Referral No Information Medications Medication SIG (Take, Route, Frequency, Duration) Notes Start Date End Date Status Zanaflex 4 MG 1 tablet at bedtime as needed Orally Once a day for 30 days 07/16/2024 Active Atorvastatin Calcium 40 MG 1 tablet Oral ly Once a day for 30 days 03/10/2023 Active Aspirin Low Dose 81 MG Oral for 90 Days Active predniSONE 50 MG 1 tablet Orally once a day for 5 days 07/16/2024 Active Allopurinol 100 MG 1 tablet Orally Once a day for 90 days 01/30/2024 Active Meloxicam 15 MG 1 tablet Orally Once a day for 90 days Active Lisinopril 2.5 MG TAKE 1 TABLET BY LISBETH TH ONCE DAILY Oral for 30 Days Active Metoprolol Succinate ER 25 MG TAKE 1/2 (ONE-HALF) OF A TABLET BY MOUTH ONCE DAILY Oral for 90 Days Active Immunizations Vaccine Route Administration Date Status Comme nts *Vouspxbxz-Txrrzwmky-Ohbsk te IM Intramuscular 03/29/2024 Administered Social History Tobacco Use: Social History Observation Description Date Details (start date - stop date) Never Smoker NA - NA Sex Assigned At : Social History Observation Description Sex Assigned At Male Tobacco Use/Smoking Question Answer Notes Tobacco use: nonsmoker patient enter ed data Alcohol Screen (Audit-C) Question Answer Notes Did you have a drink containing alcohol in the p ast year? No Points 0 Interpretation Negative CAGE-AID Questionnaire (2018 Edition) Question Answer Notes Have you ever felt that you ought to cut down on your drinking or drug use? No patient entered data Have people annoyed you by c riticizing your drinking or drug use? No patient entered data Have you ever felt bad or gu ilty about your drinking or drug use? No patient entered data Have you ever had a drink or used drugs first thing in the morning to steady your nerves or to get rid of a hangover? No patient entered data CAGE-AID Score 0 Interpretation Negative PRAPARE Question Answer Notes Date Completed/Updated: 06/28/2024 melida nt entered data What is your current housing situation? I have housing patient entered data Are you worried about losing your housing? No patient entered data What is the highest level of school that you have finished? High school diploma or GED patient entered data What is your current work situation? Otherwise unemployed but not seeking work (ex. 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 Check all that apply I do not have problems meeting my needs Has lack of transportation k ept you from medical appointments, meetings, work or from getting things needed for daily living? No How often do you see or talk to people that you care about and feel close to? (For example: talking to friends on the phone, visiting friends or family, going to sikh or club meetings) More than 5 times a week patient entered data How stressed are you? Stress is when someone feels tense, nervous, anxious, or can't sleep at night because their mind is troubled Not at all patient entered data In the past year have you sp ent more than 2 nights in a row in a penitentiary, fdc, retirement center, or juvenile correctional facility? No patient entered data Are you a refugee? No patient en tered data What country are you from? [place] chu cooknt entered data Do you feel physically and emotionally safe where you currently live? Yes patient entered data In the past year, have you b een afraid of your partner or ex-partner? No patient entered data PRAPARE Score: 4 Problems Problem Type SNOMED Code ICD Code Onset Dates Problem Status W/U Status Risk Notes Problem 104408664 Obesity, unspecified (E66.9) Active confirmed Problem 324902690 Mixed hyperlipidemia (E78.2) Active confirmed Problem 618465710 Body mass index [BMI] 33.0-33.9, adult (Z68.33) Active confirmed Problem Myocardial infarction (I21.9) Active confirmed Problem Gout (15541280) Gout (M10.9) Active confirmed Problem 15106165 Coronary artery disease involving [place] coronary artery of [place] heart without angina pectoris (I25.10) Active confirmed Vital Signs Heart Rate 82 /min 07/16/2024 Temperature 97.3 degrees Fahrenheit 07/16/2024 Respiratory Rate 18 /min 07/16/2024 Height-cm 172.72 cm 07/16/2024 Oximetry 99 % 07/16/2024 Blood pressure diastolic 79 mm Hg 07/16/2024 Weight-kg 100.93 kg 07/16/2024 Height 68 in 07/16/2024 Blood pressure systolic 127 mm Hg 07/16/2024 Weight 222.5 lbs 07/16/2024 BMI 33.83 kg/m2 07/16/2024 Encounters Encounter Location Date Provider Diagnosis [address] [id number] 01/30/2024 Nohemy Mills Chronic gout of left foot, unspecified cause M1A.0720 ; Obesity, unspecified E66.9 and Body mass index [BMI] 31.0-31.9, adult Z68.31 [address] [id number] 03/29/2024 Nohemy Mills Well adult exam Z00. 00 ; Screening for cardiovascular condition Z13.6 ; Screening for colorectal cancer Z12.11 ; Flu vaccine need Z23 ; Obesity, unspecified E66.9 and BMI 32.0-32.9,adult Z68.32 Main [address] [place] [id number] 06/28/2024 Nohemy Mills Gout M10.9 ; Mixed hyperlipidemia E78.2 ; Coronary artery disease involving [place] coronary artery of [place] heart without angina pectoris I25.10 ; Dysuria R30.0 ; Urinary tract infection without hematuria, site unspecified N39.0 ; Body mass index [BMI] 33.0-33.9, adult Z68.33 and Obesity, class 1 E66.811 Main [address] [place] [id number] 07/16/2024 Nohemy Mills Left flank pain R10. 9 ; Body mass index [BMI] 33.0-33.9, adult Z68.33 and Obesity, class 1 E66.811 [address] [place], [place] [id number] 01/17/2024 Karina Nieves Assessments Encounter Date Diagnosis (ICD Code) Assessment Notes Treatment Notes Treatment Clinical Notes Section Notes 01/30/2024 Obesity, unspecified (ICD-10 - E66.9) Body Mass Index: Care Instructions material was printed 01/30/2024 Chronic gout of left foot, unspecified cause (ICD-10 - M1A.0720) Appears that current gout flare has ended. Will refill the allopurinol as this has helped keep flares at a minimum. F/u 3 months & PRN 03/29/2024 Screening for cardiovascular condition (ICD-10 - Z13.6) 03/29/2024 Well adult exam (ICD-10 - Z00.00) Patient presents to office today for their Annual Wellness Visit. Education was provided on healthy nutrition, including a diet rich in fruits and vegetables, minimizing simple carbohydrates, salt, and saturated fats. Encouraged regular cardiovascular exercise such as walking at least 30 minutes daily, 5 times per week. Emphasized preventive health measures and educated pt on fall prevention and community-based lifestyle interventions to help reduce health risks and promote healthy living. 06/28/2024 Mixed hyperlipidemia (ICD-10 - E78.2) Pt is stable on current medications. Will continue current medications. F/u 6 months & PRN 06/28/2024 Gout (ICD-10 - M10.9) Pt is stable on current medications. Will continue current medications. F/u 6 months & PRN 07/16/2024 Body mass index [BMI] 33.0-33.9, adult (ICD-10 - Z68.33) Body Mass Index: Care Instructions material was printed 07/16/2024 Left flank pain (ICD-10 - R10.9) UA reviewed, no signs of infection. Feel that symptoms are most likely muscular in nature. Will start prednisone burst and zanaflex as needed. Discussed potential side effects of medications. Ice and heat as needed. Gentle stretching. F/u PRN 07/16/2024 Obesity, class 1 (ICD-10 - E66.811) 06/28/2024 Coronary artery disease involving [place] coronary artery of [place] heart without angina pectoris (ICD-10 - I25.10) Pt to continue to f/u with Cardiology 03/29/2024 Screening for colorectal cancer (ICD-10 - Z12.11) 01/30/2024 Body mass index [BMI] 31.0-31.9, adult (ICD-10 - Z68.31) 06/28/2024 Dysuria (ICD-10 - R30.0) 03/29/2024 Flu vaccine need (ICD-10 - Z23) 06/28/2024 Urinary tract infection without hematuria, site unspecified (ICD-10 - N39.0) UA reviewed. Will treat with antibiotics. Push fluids. F/u PRN 03/29/2024 Obesity, unspecified (ICD-10 - E66.9) Body Mass Index: Care Instructions material was printed 03/29/2024 BMI 32.0-32.9,adult (ICD-10 - Z68.32) 06/28/2024 Body mass index [BMI] 33.0-33.9, adult (ICD-10 - Z68.33) Body Mass Index: Care Instructions material was printed 06/28/2024 Obesity, class 1 (ICD-10 - E66.811) Plan Of Treatment Next Appt Details Provider Name:Nohemy bergman, 12/24/2024 02:45:00 PM, [address] [place], [place], [id number], Insurance Providers Payer Name Payer Address Payer Phone Subscriber Number Group Number Insured Name Patient Relationship to Insured Coverage Start Date Coverage End Date [facility] [address] [place] [address] [phone] [id number] ShericeRobert Self - patient is the insured 4 Medicaid C[employer] after [place] [address] [place] [address] [id number] Robert Smiley Self - patient is the insured Medical (General) History Medical History History ICD Code Myocardial infarct I21.9 Arthritis M19.90 Gout M10.9 Hyperlipemia E78.5 Surgical History Surgery Date(Month/Year) tonsillectomy and adenoidectomy appendectomy heart stents x2 Heart surgery 07/25/23 Hospitalization History Reason Date(Month/Year) see above
--- OUTSIDE RECORDS SUMMARY | 2024-11-06 11:10 | XMS_ITS | Encounter Summary ---
Author Organization [facility] Address [address] [place] [address] Phone Care Team Providers Care Sports Management Professor Name Role Phone Generic Provider, No Assigned Pcp MD Primary Car e Provider Unavailable Reason for Visit * Reason Comments Med Refill Encounter Details Date Type Department Care Team ([facility] st Contact Info) Description 07/05/2024 Refill [facility] [address] [facility] [address] [place] [address] Dallas Rebolledo MD [address] [facility] [address] [place] [address] Multi-vessel coronary artery stenosis Social History Tobacco Use Types Packs/Day Years [...] place to sleep or slept in a fpc (including now)? No 07/26/2023 Sex and Gender Information Value Date Recorded Sex Assigned at Not on file Legal Sex Male 2:05 PM EST Gender Identity Not on file Sexual Orientation Not on file documented as of this encounter Plan of Treatment Upcoming Encounters Date Type Department Care Team (Late st Contact Info) Description 11/21/2024 1:30 PM EDT Office Visit [facility] [address] [phone] Dallas Rebolledo MD [address] [facility] [address] [place] [address] documented as of this encounter Visit Diagnoses Diagnosis Multi-vessel coronary artery stenosis documented in this encounter Additional Health Concerns Assessment Noted Time A fall risk assessment has been complete d for the patient 03/14/2024 2:58 PM EDT documented as of this encounter Care Teams Sports Management Professor Relationship Specialty Start Date End Date Generic Provider, [place] [address] PCP - General Tabulating Clerk 08/25/23 documented as of this encounter
--- OUTSIDE RECORDS SUMMARY | 2024-11-06 11:10 | XMS_ITS | Clinical Summary ---
Author Organization [facility] 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 Resolved Problems Problem Noted Date Diagnosed Date Resolved Date Combined forms of age-relate d cataract of right eye 03/14/2022 03/15/2022 Social History Tobacco Use Types Packs/Day Years Used Date Smoking Tobacco: Never Alcohol Use Standard Drinks/Week Comments Not Currently 0 (1 standard drink = 0.6 oz pur e alcohol) Sex and Gender Information Value Date Recorded Sex Assigned at Not on file Legal Sex Male 5:58 PM EST Gender Identity Not on file Sexual Orientation Not on file Last Filed Vital Signs Vital Sign Reading Time Taken Comments Blood Pressure 113/66 03/15/2022 10:30 AM EDT Pulse 70 03/15/2022 10:30 AM EDT Temperature 36.2 C (97.2 F) 03/15/2022 10:10 AM EDT Respiratory Rate 18 03/15/2022 10:30 AM EDT Oxygen Saturation 96% 03/15/2022 10:30 AM EDT Inhaled Oxygen Concentration - - Weight 109.3 kg (241 lb) 03/15/2022 9:00 AM EDT Height 175.3 cm (5' 9 ) 03/15/2022 9:00 AM EDT Body Mass Index 35.59 03/15/2022 9:00 AM EDT Plan of Treatment Health Maintenance Due Date Last Done Comments DTaP/Tdap/Td vaccine (1 - Tdap) 1980 COVID-19 Vaccine ( - 2023-2 5 season) 2024 Flu vaccine (Season Ended) 2024 Respiratory Syncytial Virus (RSV) or age 60 yrs+ (1 - 1-dose 75+ series) 2036 Polio vaccine Aged Out No longer elig ible based on patient's age to complete this topic Medical Devices Implanted Type Area Obstetric Anaesthetist Device Identifier Shelf Expiration Date Model / Serial / Lot Lens Iol Envista Mx60 22.5d - [id number] Implanted:Qty: 1 on 09/04/2018 by Arnulfo Pate MD at [facility] Eye Left: Eye [employer]CH [employer] LOMB-PMM MX60 22.5D / [id number] / Lens Intraocular Bcnvx +22.5 Diopt 6x12.5 Mm Envista - [id number] Implanted:Qty: 1 on 03/15/2022 by Gene Phan DO at [facility] Right: Eye [employer]-WD 05/15/2024 [id number] / [id number] / Insurance PLAN [facility] PL[facility] Advance Directives * Full Code (Latest Code Status on File) Date Activated Date Inactivated Comments 03/15/2022 8:51 AM 03/15/2022 12:54 PM * Full Code Date Activated Date Inactivated Comments 09/04/2018 7:57 AM 09/04/2018 11:49 AM Care Teams Flap Presser Relationship Specialty Start Date End Date Daniele Woodward Sr., [address] [facility] [place] [address] PCP - General Family Medicine 03/10/22
[2024-11-06 11:57] LABS: Alanine Aminotransferase 25 U/L (16-63); Anion Gap 10.7; Aspartate Amino Transferase 18 U/L (15-37); BUN Creatinine Ratio 16.5; Carbon Dioxide 27.5 mmol/L (21.0-32.0); Chloride 106 mmol/L (98-107); Chol HDL Ratio 3.4; Cholesterol 249 mg/dL (<=200); Estimated GFR (African America >60 (>=60 mL/min/1.73m^2); Estimated GFR (Non-African Ame >60 (>=60 mL/min/1.73m^2); Glucose 92 mg/dL (74-106); HDL Cholesterol 73 mg/dL (40-60); Potassium 4.2 mmol/L (3.5-5.1); Sodium 140 mmol/L (136-145); Triglycerides 107 mg/dL (<=150); VLDL CHOLESTEROL 21.4 mg/dL
== END 2024-11-06 11:05 | disposition home or self-care (01) ==
LOC: LAB 11:08
PROVIDERS: Visit Provider Internal Medicine Cardiovascular Disease
DX: E78.2 Mixed hyperlipidemia (principal); I25.10 Atherosclerotic heart disease of native coronary artery without angina pectoris
CPT/HCPCS: 36415; 80048; 80061; 84450; 84460

== ENCOUNTER 2024-11-19 12:50 | Outpatient (OUT) | payer OTHER, SELFPAY ==
--- OUTSIDE RECORDS SUMMARY | 2024-10-18 12:55 | XMS_ITS ---
Author Name Auto Generated Organization OHIP Care Team Providers Care Food Trades Assistants Name Role Phone LEONARD REBOLLEDO Attending Unavailable LEONARD REBOLLEDO Referring Unavailable GENERIC PROVIDER, NO ASSIGNED PCP Primary Care Unavailable JAMAL CASTELLANO Primary Care Unavailable Cora Lee Attending Unavailable LEONARD REBOLLEDO Referring Unavailable PROBLEMS DATE TYPE CONDITION / CODE ATTENDING STATUS 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 / I25.10(ICD-10) [facility] 03/14/2024 Admitting Diagnosis 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 with other forms of angina pectoris ([facility]) / I25.118(ICD-10) [facility] PROCEDURES No Procedure Records Found RESULTS TRANSTHORACIC ECHO (TTE) COMPLETE Observed: 10/18/2024 1:27 PM Status: F Source: [facility] [address] [place] [address], [address], [place] [address] TRANSTHORACIC ECHOCARDIOGRAM REPORT Patient Name: TEMO RICHEY Reading Physician: [id number] Leonard Rebolledo MD Study Date: 10/18/2024 Ordering Provider: [id number] LEONARD REBOLLEDO MRN/PID: [id number] Fellow: Nurse: Date of /Age: 5 1960 / 64 years Wax Cutter: Gayle Gottlieb RDCS, T Gender Assigned at Additional Staff: : Height: 172.72 cm Admit Date: Weight: 96.62 kg Admission Status: Outpatient BSA / BMI: 2.10 m2 / 32.39 Department Location: [facility] kg/m2 [place] Blood Pressure: 114 /68 mmHg Study Type: TRANSTHORACIC ECHO (TTE) COMPLETE Diagnosis/ICD: 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 PHYSICIAN INTERPRETATION: Left Ventricle: The left ventricular systolic function is normal with a visually estimated ejection fraction of 60%. There are no regional wall motion abnormalities. The left ventricular cavity size is normal. There is mild increased septal and mildly increased posterior left ventricular wall thickness. There is left ventricular concentric remodeling. Spectral Doppler shows a Grade I (impaired relaxation pattern) of left ventricular diastolic filling with normal left atrial filling pressure. Mild concentric left nuclear hypertrophy. Left Atrium: The left atrial size is normal. Right Ventricle: The right ventricle is normal in size. There is normal right ventricular global systolic function. Right Atrium: The right atrial size is normal. Aortic Valve: The aortic valve is trileaflet. The aortic valve area by VTI is 3.34 cm??? with a peak velocity of 0.99 m/s. The peak and mean gradients are 4 mmHg and 2 mmHg, respectively, with a dimensionless index of 0.65. There is mild aortic valve cusp calcification. There is mild aortic valve regurgitation. Mitral Valve: The mitral valve is normal in structure. The doppler estimated peak and mean diastolic gradients are 4 mmHg and 2 mmHg, respectively. There is mild mitral valve regurgitation. The E Vmax is 0.63 m/s. Tricuspid Valve: The tricuspid valve is structurally normal. No evidence of tricuspid regurgitation. Pulmonic Valve: The pulmonic valve is structurally normal. There is no indication of pulmonic valve regurgitation. Pericardium: No pericardial effusion noted. Aorta: The aortic root is normal. Systemic Veins: The inferior vena cava was not well visualized, IVC inspiratory collapse is not well visualized. CONCLUSIONS: 1. The left ventricular systolic function is normal with a visually estimated ejection fraction of 60%. 2. Spectral Doppler shows a Grade I (impaired relaxation pattern) of left ventricular diastolic filling with normal left atrial filling pressure. 3. Mild concentric left nuclear hypertrophy. 4. There is normal right ventricular global systolic function. 5. Mild mitral valve regurgitation. 6. Mild aortic valve regurgitation. 7. No significant changes when compared to previous study. QUANTITATIVE DATA SUMMARY: 2D MEASUREMENTS: Normal Ranges: Ao Root s: 2.90 cm LAs: 3.14 cm (2.7-4.0cm) RVIDd: 2.38 cm (0.9-3.6cm) IVSd: 1.18 cm (0.6-1.1cm) LVPWd: 1.22 cm (0.6-1.1cm) LVIDd: 3.81 cm (3.9-5.9cm) LVIDs: 2.64 cm LV Mass Index: 73.3 g/m2 LVEDV Index: 41.02 ml/m2 LV % FS 30.8 % LEFT ATRIUM: Normal Ranges: LA Vol A4C: 26.7 ml (22+/-6mL/m2) LA Vol A2C: 49.5 ml LA Vol BP: 37.0 ml LA Vol Index A4C: 12.7ml/m2 LA Vol Index A2C: 23.6 ml/m2 LA Vol Index BP: 17.6 ml/m2 LA Vol A4C: 25.6 ml LA Vol A2C: 46.8 ml LA Vol Index BSA: 17.2 ml/m2 LV SYSTOLIC FUNCTION: Normal Ranges: EF-A4C View: 39 % (>=55%) EF-A2C View: 43 % EF-Biplane: 41 % EF-Visual: 60 % LV EF Reported: 60 % LV DIASTOLIC FUNCTION: Normal Ranges: MV Peak E: 0.63 m/s (0.7-1.2 m/s) MV Peak A: 0.80 m/s (0.42-0.7 m/s) E/A Ratio: 0.78 (1.0-2.2) MV e' 0.068 m/s (>8.0) MV lateral e' 0.06 m/s MV medial e' 0.07 m/s E/e' Ratio: 9.15 (<8.0) MITRAL VALVE: Normal Ranges: MV Vmax: 1.00 m/s (<=1.3m/s) MV peak P.0 mmHg (<5mmHg) MV mean P.9 mmHg (<48mmHg) MV VTI: 21.81 cm (10-13cm) MV DT: 191 msec (150-240msec) AORTIC VALVE: Normal Ranges: AoV Vmax: 0.99 m/s (<=1.7m/s) AoV Peak P.9 mmHg (<20mmHg) AoV Mean P.2 mmHg (1.7-11.5mmHg) LVOT Max Lex: 0.81 m/s (<=1.1m/s) AoV VTI: 20.97 cm (18-25cm) LVOT VTI: 13.72 cm LVOT Diameter: 2.55 cm (1.8-2.4cm) AoV Area, VTI: 3.34 cm2 (2.5-5.5cm2) AoV Area,Vmax: 4.18 cm2 (2.5-4.5cm2) AoV Dimensionless Index: 0.65 RIGHT VENTRICLE: RV Basal 3.49 cm RV Mid 2.70 cm RV Major 6.5 cm RV s' 0.11 m/s TRICUSPID VALVE/RVSP: Normal Ranges: Est. RA Pressure: 3 mmHg PULMONIC VALVE: Normal Ranges: RVOT Vmax: 0.57 m/s (0.6-0.9m/s) AORTA: Asc Ao Diam 3.01 cm [id number] Leonard Rebolledo MD Electronically signed on 10/19/2024 at 12:15:46 PM Final REMINDERS Observed: 06/21/2024 3:38 PM Status: C Source: [facility] Reminders From: Jacklyn Presley To: EU - Recalls Lue; Sent: 06/21/2024 15:38:13 EST Show up: 10/15/2024 15:37:00 EDT Subject: 6 Month PSA Due Date/Time: 11/28/2024 15:38:00 EDT Reminder/Recall Per KML, patient to have 6 month f/u with PSA. Patient prefers to have blood work done at [facility], orders will need to be sent prior to f/u appointment on 11/28/24. Patient stopped into [place] office. Order was written and given to pt. UROLOGY OFFICE/CLINIC NOTE Observed: 11:49 AM Status: F Source: [facility] Urology Office/Clinic Note Chief Complaint 1 yr w/ psa HPI Staff 1 yr w/ PSA. Previous dx: elevated PSA, BPH, fam hx of pros ca, antiplatelet long-term use. *No urologic meds PSA 05/12/23 - 5.2 & 14.4% 05/25/24 - 6.5 and 17.8%pt denies having any urinary issues at this time. pt states he had a heart attack in July 2023, pt had a Triple Bypass and had a change of meds. pt was unable t give urine sample at beginning of OV History of Present Illness Tests reviewed: reviewed UA and PSA. I have reviewed the previous health record information and history for this patient from . I have reviewed and verified the staff HPI to be accurate for this encounter. There have been no associated fever, chills, flank pain, or blood in the urine. Denies any urinary infections since last encounter. Review of Systems PHQ Score Initial Depression Screen Score: 0 SCORE ROS - Provider Constitutional: denies weight loss, [...] HPI. Physical Exam Vitals & Measurements HR: 80(Peripheral) BP: 132/76 HT: 69 in HT: 176 cm WT: 109 kg WT: 240.304 lb BMI: 35.19 General Appearance: alert , no acute distress, well nourished, well developed female. Genitourinary: bladder nonpalpable, no flank pain. Assessment/Plan 63 yo male with hx of elevated PSA here for follow up LYNN 0(4). - not sexually active, not interested in treatment. Pt states he had a heart attack in July 2023, pt had a Triple Bypass and had a change of meds, no heart stents. Not on any blood thinners. Takes baby Aspirin. 1. Elevated PSA (R97.20: Elevated prostate specific antigen [PSA]) PSA: 08/14/18 - 4.75 08/20/21 - 7.90 10/27/21 - 4.9 & 13.5% free (s/p ABX for prostatitis) 04/22/22 - 5.3 & 14% 10/22/22 - 5.2 05/12/23 - 5.2 & 14.4%, PSAD 0.10 05/25/24 - 6.5 & 17.8% Select MDX 09/14/21 - 48% Likelihood of prostate cancer upon bx and 21% likelihood of detecting Boston score >7 cancer. MRI of prostate 12/07/21 - No suspicious lesion. Prior prostatitis. BPH. Volume 54 mL. EDMAR 10/27/22 - benign Discussed PSA level. Remains elevated from prior. Again discussed mgmt options including biopsy vs continued monitoring. Pt would like to continue to get a repeat MRI, does not want a bx if the MRI is negative. If MRI shows a lesion then would proceed with a bx. Discussed different biopsies. Pt states he does not mind either way of biopsies. Pt would like to be put under anesthesia. We discussed risks of MRI fusion prostate biopsy approaches including transrectal and transperineal. Risks of the procedure were discussed to include but not be limited to bleeding, pain, infection (higher, including sepsis with transrectal approach), difficulties with urination, injury to the urethra, prostate or bladder or surrounding tissues, injury from positioning on the table, swelling and bruising of the skin, and need for further procedures. Follow up pending MRI. All questions/concerns were discussed. Pt to call the office if he encounters any issues prior. Pt acknowledges understanding. -Will order MRI of Prostate. If positive, schedule a MRI fusion TP bx under anesthesia. - If negative, will obtain 6 mos PSA F/T. Patient understands risk of missed malignancy despite negative MRI in the setting of rising PSA. 2. BPH (benign prostatic hyperplasia) (N40.0: Benign prostatic hyperplasia without lower urinary tract symptoms) IPSS 0 (2). Not taking any BPH meds. UA today negative for blood and infection. No urinary complaints or UTIs. Declines further eval/tx at this time -Cont sx monitoring 3. Family hx of prostate cancer (Z80.42: Family history of malignant neoplasm of prostate) Grandfather diagnosed at age 80. Follow-up With When Contact Information Jesus ROD, Cora Gupta, URL, URO Additional Instructions: Pending MRI Patient Education Prostate Cancer Screening IBere, personally scribed for Dr. Lee on 05/30/2024 11:49:16. . Portions of this record may have been created with voice recognition artificial intelligence software, specifically [employer], [employer] and or [employer]. Substitutions may have occurred due to the inherent limitations of voice recognition and artificial intelligence software. Documentation recorded by the scribeBere, accurately reflects the services(s) I performed and decisions made by me. Authenticated by Dr. Lee on 05/30/2024 15:28:44. Problem List/Past Medical History Ongoing Antiplatelet or antithrombotic long-term use BPH (benign prostatic hyperplasia) Elevated PSA Family hx of prostate cancer Historical No qualifying data Procedure/Surgical History Appendectomy, Bypass of carotid artery to carotid artery using vein graft, Cataract extraction, Placement of stent in cardiac conduit, Tonsillectomy. Medications Aspirin Low Dose 81 mg oral tablet, chewable metoprolol succinate 25 mg ER Tab, 25 mg= 1 tab(s), Oral, Daily Allergies No Known Medication Allergies Social History Alcohol Never., 05/30/2024 Substance Abuse Never., 05/30/2024 Tobacco Never (less than 100 in lifetime) Tobacco Use:., 05/30/2024 Family History Diabetes: Mother. Lung cancer: Father. Immunizations Vaccine Date Status pneumococcal 20-valent conjugate vaccine 03/28/2023 Recorded influenza virus vaccine, inactivated 03/28/2023 Recorded influenza virus vaccine, inactivated 04/01/2022 Recorded SARS-CoV-2 (COVID-19) mRNA-1273 vaccine 04/29/2021 Recorded influenza virus vaccine, inactivated 04/10/2021 Recorded SARS-CoV-2 (COVID-19) mRNA-1273 vaccine 10/08/2020 Recorded SARS-CoV-2 (COVID-19) mRNA-1273 vaccine 09/12/2020 Recorded SARS-CoV-2 (COVID-19) mRNA-1273 vaccine 05/2020 [id number]-5 (COVID-19) mRNA-1273 vaccine 05/2020 Recorded Result Comment: Electronical ly Signed By: Cora Lee MD\.br\Date and Time Signed: 05/30/24 15:29 EST\.br\Electronically Co-Signed By: Bere Hendrickson\.br\Date and Time Co-Signed: 05/30/24 11:49 EST PATIENT EDUCATION Observed: 05/30/2024 11:48 AM Status: F Source: [facility] Patient Education Oncology Prostate Cancer Screening Prostate [...] recommendations. In general, screening is recommended if: ??? You are age 50 to 70 and [...] have a 10- to 15-year life expectancy. ??? You are younger than age 50, and [...] In general, screening is not recommended if: ??? You are younger than age 40. ??? You are between the ages of 40 and 49 and you have no risk factors. ??? You are 70 years of age or [...] high PSA levels may be caused by: ??? Prostate cancer. ??? An enlarged prostate that is not caused by cancer (benign prostatic hyperplasia, or BPH). This condition is very common in older men. ??? A prostate gland infection (prostatitis) or urinary tract infection. ??? Certain medicines such as male hormones (like [...] you may need more tests, such as: ??? A physical exam to check the size of your prostate gland, if not done as part of screening. ??? Blood and imaging tests. ??? A procedure to remove tissue samples from your prostate gland for testing (biopsy). This is the only way to know for certain if you have prostate cancer. What are the benefits of prostate cancer screening? Screening can help to identify cancer at an early stage, before symptoms start and when the cancer can be treated more easily. ??? There is a small chance that screening [...] Questions to ask your health care provider ??? When should I start prostate cancer screening? What is my risk for prostate cancer? How often do I need screening? What type of screening tests do I need? How do I get my test results? What do my results mean? Do I need treatment? Where to find more information ??? The [place] [employer]: www.cancer.org ??? [place] [employer] Association: www.auanet.org Contact a health care provider if: ??? You have difficulty urinating. ??? You have pain when you urinate or ejaculate. ??? You have blood in your urine or semen. ??? You have pain in your back or in the area of your prostate. Summary ??? Prostate cancer is a common type of cancer in men. The prostate gland is located below the bladder and in front of the rectum. This gland adds fluid to semen during ejaculation. ??? Prostate cancer screening may identify cancer at an early stage, when the cancer can be treated more easily and is less likely to have spread to other areas of the body. ??? The prostate-specific antigen (PSA) test is the recommended screening test for prostate cancer, but it has associated risks. ??? Discuss the risks and benefits of prostate [...] 10/26/2021 Document Reviewed: 10/26/2021 Elsevier Patient Education ? 2023 Elsevier Inc. ALLERGIES DATE TYPE / CODE NAME / CODE REACTION SEVERITY SOURCE /[id number](SNOM ED CT) No Known Medication Allergies [facility] LAW/[id number] 6(SNOMED CT) NO KNOWN ALLERGIES [facility]ulatory ENCOUNTERS ADMIT/DISCHARGE ACCOUNT NUMBER ADMITTING ENCOUNTER CLASS LOCATION SOURCE 10/18/2024/ 5 [id number] Ambulatory Building:[place] [address] [place] [address] 05/30/2024/ 5 [id number] Ambulatory EU MiloBuclemente ding:EU MiltonueRoom : Exam 4 [facility] 03/14/2024/ 4 [id number] Ambulatory Building:[address] 09/11/2021 [id number] Ambulatory EU Ana ing:EU Corey [facility] PAYERS ENCOUNTER GUARANTOR PAYER SUBSCRIBER SOURCE 10/18/2024 TEMO RECINOSB: [address] [place], [place] [address]Xkz: () () [facility]: [id number] Date:2020-01-15 TEMO RICHEYDOB: [id number] [place], [place] [address]Qpj: (HP) [facility] 05/30/2024 TEMO RECINOSB: [address] [facility]ASTTel: ~[phone] ([phone]) Primary Insurance:[facility] Number: [id number] Date:[id number] [address] [address]SN: TEMO LOPEZ [facility] 03/14/2024 TEMO RECINOSB: [place], [place] [address]Sjd: (HP) () [facility] Insurance[facility] Number: [id number] Date:2020-01-15 TEMO HALL: [id number] [place], [place] [address]Orz: () [facility] 09/11/2021 TEMO HALL: [facility]: ~[phone] Primary Insurance:[facility] Number: [id number] Date:[id number] [address], [place] [address]CF: TEMO LOPEZ [facility]
--- OUTSIDE RECORDS SUMMARY | 2024-11-19 12:55 | XMS_ITS | Clinical Summary ---
Author Organization [facility] Address [id number] [place] [address] Care Team Providers Care Surgical Attendant Name Role Phone Geovanny Merrill SUPERVISOR BIT AND SHANK DEPARTMENT-PROFESSOR OF FINE ART Primary Care Provider [phone] Allergies No known active allergies Medications * [...] 12:34 PM 10/19/2017 8:40 PM Care Teams Surgical Attendant Relationship Specialty Start Date End Date Geovanny Merrill APRN-IRENA PCP - General Primary Care 03/10/23
--- OUTSIDE RECORDS SUMMARY | 2024-11-19 12:55 | XMS_ITS | Patient Health Record ---
Author Organization [facility] vices Address [address] [place], [place] [id number] Care Team Providers Care Reliability Manager Name Role Phone Nohemy Mills Primary Care Provider Geovanny Walsh Unavailable [phone] Karina Nieves Unavailable [phone] Allergies No Known Allergies Results Component Value Reference Range Notes Urine Dip Reviewed date:06/28/2024 02:28:54 PM Interpretation: Performing Lab: Notes/Report: Bilirubin neg Occult Blood neg Glucose neg Ketones neg WBC + Nitrite neg Ph 6.0 Protein + Specific [place] 1.025 Color Yellow Urine Dip Reviewed date:07/16/2024 05:58:13 PM Interpretation: Performing Lab: Notes/Report: Bilirubin neg Occult Blood neg Glucose neg Ketones neg WBC neg Nitrite neg Ph 6.0 Protein neg Specific [place] 1.035 Color yellow Appearance clear Reason For [...] Vaccine Route Administration Date Status Comme nts *Dyafdbmmb-Seqejvuyx-Gticx te IM Intramuscular 03/29/2024 Administered Social History [...] work (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 Stress is when someone feels tense, nervous, anxious, or can't sleep at night because their mind is troubled Not at all patient entered data In the past year have you sp ent more than 2 nights in a row in a chcf, correction, fci center, or juvenile correctional facility? No patient [...] Problem Status W/U Status Risk Notes Problem 818762678 Obesity, unspecified (E66.9) Active confirmed Problem 562063521 Mixed hyperlipidemia (E78.2) Active confirmed Problem 630216598 Body mass index [BMI] 33.0-33.9, adult (Z68.33) Active confirmed Problem Myocardial infarction (I21.9) Active confirmed Problem Gout (19044731) Gout (M10.9) Active confirmed Problem 63621458 Coronary artery disease involving [place] coronary artery of [place] heart without angina pectoris (I25.10) Active confirmed Vital Signs Heart Rate 82 /min 07/16/2024 Temperature 97.3 degrees Fahrenheit 07/16/2024 Respiratory Rate 18 /min 07/16/2024 Blood pressure diastolic 79 mm Hg 07/16/2024 Oximetry 99 % 07/16/2024 Height-cm 172.72 cm 07/16/2024 Weight-kg 100.93 kg 07/16/2024 Height 68 in 07/16/2024 Blood pressure systolic 127 mm Hg 07/16/2024 Weight 222.5 lbs 07/16/2024 BMI 33.83 kg/m2 07/16/2024 Encounters Encounter Location Date Provider Diagnosis [address] [id number] 01/30/2024 Nohemy Mills Chronic gout of left foot, unspecified cause M1A.0720 ; Obesity, unspecified E66.9 and Body mass index [BMI] 31.0-31.9, adult Z68.31 [address] [id number] 03/29/2024 Nohemy Mills Well adult exam Z00. 00 ; Screening for cardiovascular condition Z13.6 ; Screening for colorectal cancer Z12.11 ; Flu vaccine need Z23 ; Obesity, unspecified E66.9 and BMI 32.0-32.9,adult Z68.32 Main [address] [place], [place] [id number] 06/28/2024 Nohemy Mills Gout M10.9 ; Mixed hyperlipidemia E78.2 ; Coronary artery disease involving [place] coronary artery of [place] heart without angina pectoris I25.10 ; Dysuria R30.0 ; Urinary tract infection without hematuria, site unspecified N39.0 ; Body mass index [BMI] 33.0-33.9, adult Z68.33 and Obesity, class 1 E66.811 [address] [place], [place] [id number] 07/16/2024 Nohemy Mills Left flank pain R10. 9 ; Body mass index [BMI] 33.0-33.9, adult Z68.33 and Obesity, class 1 E66.811 [address] [place], [place] [id number] 01/17/2024 Karina Nieves Assessments Encounter Date Diagnosis [...] - E66.811) 06/28/2024 Coronary artery disease involving [place] coronary artery of [place] heart without angina pectoris (ICD-10 - I25.10) [...] bergman, 12/24/2024 02:45:00 PM, [address] [place], [place], [id number], Insurance Providers Payer Name Payer Address Payer Phone Subscriber Number Group Number Insured Name Patient Relationship to Insured Coverage Start Date Coverage End Date [facility] [address] [place] [address] [id number] ShericeRobert Self - patient is the insured 4 Medicaid CFC after [place] [address] [place] [address] [id number] Robert Smiley Self - patient is the insured Medical (General) History Medical History History ICD Code Myocardial infarct I21.9 Arthritis M19.90 Gout M10.9 Hyperlipemia E78.5 Surgical History Surgery Date(Month/Year) tonsillectomy and adenoidectomy appendectomy heart stents x2 Heart surgery 07/25/23 Hospitalization History Reason Date(Month/Year) see above
--- OUTSIDE RECORDS SUMMARY | 2024-11-19 12:55 | XMS_ITS | Clinical Summary ---
Author Organization [facility] Address [address] [place] [address] Care Team Providers Care Generation Technician Name Role Phone Trace Womack DO, Charles [...] - 2023-2 5 season) 2024 Flu vaccine (#1) 12/14/2024 Respiratory Syncytial Virus (RSV) or age 60 yrs+ (1 - 1-dose 75+ series) 2036 Polio vaccine Aged Out No longer elig ible based on patient's age to complete this topic Medical Devices Implanted Type Area Road Manager Device Identifier Shelf Expiration Date Model / Serial / Lot Lens Iol Envista Mx60 22.5d - [id number] Implanted:Qty: 1 on 09/04/2018 by Arnulfo Pate MD at [facility] Eye Left: Eye [employer]OM[employer]-PMM MX60 22.5D / [id number] / Lens Intraocular Bcnvx +22.5 Diopt 6x12.5 Mm Envista - [id number] Implanted:Qty: 1 on 03/15/2022 by Gene Phan DO at [facility] Right: Eye [employer]-WD 05/15/2024 [id number] / [id number] / Insurance PLAN [facility] PLAN Advance Directives * Full Code (Latest Code Status on File) Date Activated Date Inactivated Comments 03/15/2022 8:51 AM 03/15/2022 12:54 PM * Full Code Date Activated Date Inactivated Comments 09/04/2018 7:57 AM 09/04/2018 11:49 AM Care Teams Generation Technician Relationship Specialty Start Date End Date Daniele Woodward Sr., [address] [facility] [place] [address] PCP - General Family Medicine 03/10/22
[2024-11-20 04:08] LABS: PSA, Free 1.12 ng/mL
== END 2024-11-19 12:51 | disposition home or self-care (01) ==
LOC: LAB 12:51
PROVIDERS: Visit Provider Urology
DX: R97.20 Elevated prostate specific antigen [PSA] (principal)
CPT/HCPCS: 36415; 84153; 84154

== ENCOUNTER 2025-02-19 12:03 | Outpatient (OUT) | payer OTHER, SELFPAY ==
--- OUTSIDE RECORDS SUMMARY | 2024-03-13 09:15 | XMS_ITS ---
Author Organization [facility] vices Address [address] [place], [place] [id number] Care Team Providers Care Search Engine Marketing Manager Name Role Phone Nohemy Mills Primary Care Provider Geovanny Walsh Unavailable [phone] REASON FOR VISIT Wellness Social History Sex Assigned At : Social History Observation Description Sex Assigned At Male Encounters Encounter Location Date Provider Diagnosis [place] [address] [place] [address] 03/13/2024 Geovanny Walsh Plan Of Treatment Next Appt Details Provider Name:Nohemy bergman, 04/04/2025 12:45:00 PM, [address] [place], [place], [phone], Progress Notes * Robert SMILEYDOB:1960 ([age] yo M)Acc No.[id number]:03/13/2024 Medical Note Patient: Robert EASTMAN Provider: JOHN Capps :1960 A ge:63 Y S ex:Male Date:03/13/2024 Address:[address] [place], [place] Pcp:Nohemy Mills Subjective: * Chief Complaints: * 1 . Wellness. * Medical History: Objective: * Vitals: Assessment: Plan: * Treatment: * Billing Information: * Visit Code: * Procedure Codes: * Electronic signature of Seth Walsh NP on 02/19/2025 at 12:06 PM EDT Sign off status: Pending * Provider: JOHN Capps Date: 1 Generated for Tonny braga/Mattie/Joy on: 12:06 PM EDT
--- OUTSIDE RECORDS SUMMARY | 2025-02-19 12:06 | XMS_ITS | Encounter Summary ---
Author Organization [facility] Address [address] [place] [address] Phone Care Team Providers Care Activities Concierge Name Role Phone Generic Provider, No Assigned Pcp MD Primary Car e Provider Unavailable Nohemy Mills TRADING FLOOR OPERATOR-SHUTTLE DRIVER Primary Care P rovider Reason for Visit * Reason Comments Med Refill Encounter Details Date Type Department Care Team (Late st Contact Info) Description 07/05/[address] [place] [address] Dallas Rebolledo MD [address] [facility] 2, [address] [place] [address] Multi-vessel coronary artery stenosis Social [...] place to sleep or slept in a long term (including now)? No 07/26/2023 Sex and Gender Information Value Date Recorded Sex Assigned at Not on file Legal Sex Male 2:05 PM EST Gender Identity Not on file Sexual Orientation Not on file documented as of this encounter Plan of Treatment Upcoming Encounters Date Type Department Care Team (Late st Contact Info) Description 08/27/2025 2:40 PM EDT Office Visit [address] [phone] Dallas Rebolledo MD [address] [facility] 2, [facility] [address] [place] [address] documented as of this encounter Visit Diagnoses Diagnosis Multi-vessel coronary artery stenosis documented in this encounter Additional Health Concerns Assessment Noted Time A fall risk assessment has been complete d for the patient 03/14/2024 2:58 PM EDT documented as of this encounter Care Teams Activities Concierge Relationship Specialty Start Date End Date Generic Provider, No Assigned P[place], [place] [address] PCP - General Room Service Waiter 08/25/23 11/20/24 Nohemy Mills APRN-SHUTTLE DRIVER [address] [place] [address] PCP - General Family Medicine 11/21/24 documented as of this encounter
--- OUTSIDE RECORDS SUMMARY | 2025-02-19 12:06 | XMS_ITS | Clinical Summary ---
Author Organization [facility] Address [address] [facility], [address] [place] [address] Care Team Providers Care Edi Architect Name Role Phone House Daniele DYE Primary Care Provider + Allergies No known [...] Comments DTaP/Tdap/Td vaccine (1 - Tdap) 1980 Respiratory Syncytial Virus (RSV) or age 60 yrs+ (1 - Risk 60-74 years 1-dose series) 2021 Flu vaccine (#1) 12/14/2024 COVID-19 Vaccine (1 - 2023-2 5 season) 2025 Polio vaccine Aged Out No longer elig ible based on patient's age to complete this topic Medical Devices Implanted Type Area Headwaiter/Headwaitress Device Identifier Shelf Expiration Date Model / Serial / Lot Lens Iol Envista [id number] 22.5d - [id number] Implanted:Qty: 1 on 09/04/2018 by Arnulfo Pate MD at [facility] Eye Left: Eye [employer]-PMM MX60 22.5D / [id number] / Lens Intraocular Bcnvx +22.5 Diopt 6x12.5 Mm Envista - [id number] Implanted:Qty: 1 on 03/15/2022 by Gene Phan DO at [facility] Right: Eye [employer] SURGICAL-WD 05/15/2024 [id number] / [id number] / Insurance PLAN [facility] PLAN Advance Directives * Full Code (Latest Code Status on File) Date Activated Date Inactivated Comments 03/15/2022 8:51 AM 03/15/2022 12:54 PM * Full Code Date Activated Date Inactivated Comments 09/04/2018 7:57 AM 09/04/2018 11:49 AM Care Teams Edi Architect Relationship Specialty Start Date End Date Daniele Woodward Sr., DO [address] [facility] [place] [address] PCP - General Family Medicine 03/10/22
--- OUTSIDE RECORDS SUMMARY | 2025-02-19 12:06 | XMS_ITS | Encounter Summary ---
Author Organization [facility] Address [address] [place] [address] Phone Care Team Providers Care Insurance Application Investigator Name Role Phone Generic Provider, No Assigned Pcp MD Primary Car e Provider Unavailable Nohemy Mills LOCKSTITCH COLLAR SETTER-HEAVY EQUIPMENT SALES ASSOCIATE Primary Care P rovider Encounter Details Date Type Department Care Team (Late st Contact Info) Description 11/11/2023 Scanned Document [facility] [address] [place] [phone] Scanning, Generic Provider Social History Tobacco Use [...] place to sleep or slept in a jail (including now)? No 07/26/2023 Sex and Gender Information Value Date Recorded Sex Assigned at Not on file Legal Sex Male 2:05 PM EST Gender Identity Not on file Sexual Orientation Not on file documented as of this encounter Plan of Treatment Upcoming Encounters Date Type Department Care Team (Late st Contact Info) Description 08/27/2025 2:40 PM EDT Office Visit [address] [place] [phone] Dallas Rebolledo MD [address] [place] [address] 2, [address] [place] [address] documented as of this encounter Visit Diagnoses Not on filedocumented in this encounter Additional Health Concerns Assessment Noted Time A fall risk assessment has been complete d for the patient 08/25/2023 1:22 PM EDT documented as of this encounter Care Teams Insurance Application Investigator Relationship Specialty Start Date End Date Generic Provider, No Assigned Pcp, [place] [address] PCP - General Technical Project Lead 08/25/23 11/20/24 Nohemy Mills, LOCKSTITCH COLLAR SETTER-HEAVY EQUIPMENT SALES ASSOCIATE [address] [facility] [place] [address] PCP - General Family Medicine 11/21/24 documented as of this encounter
--- OUTSIDE RECORDS SUMMARY | 2025-02-19 12:06 | XMS_ITS | Encounter Summary ---
Author Organization [facility] Address [address] [place] [address] Phone Care Team Providers Care Funeral Greeter Name Role Phone Generic Provider, No Assigned Pcp MD Primary Car e Provider Unavailable Nohemy Mills SUPERVISOR COUNSELING AND GUIDANCE-DRY HOUSE WHEELER Primary Care P rovider Encounter Details Date Type Department Care Team (Late st Contact Info) Description 01/18/2024 Scanned Document [facility] [address] [place] [phone] Scanning, Generic Provider Social History Tobacco Use [...] Description 08/27/2025 2:40 PM EDT Office Visit [address] [place] [phone] Dallas Rebolledo MD [address] [place] [address] 2, [address] [place] [address] documented as of this encounter Visit Diagnoses Not on filedocumented in this encounter Additional Health Concerns Assessment Noted Time A fall risk assessment has been complete d for the patient 08/25/2023 1:22 PM EDT documented as of this encounter Care Teams Funeral Greeter Relationship Specialty Start Date End Date Generic Provider, No Assigned Pcp, [place] [address] PCP - General News Photographer 08/25/23 11/20/24 Nohemy Mills, SUPERVISOR COUNSELING AND GUIDANCE-DRY HOUSE WHEELER [address] [facility] [place] [address] PCP - General Family Medicine 11/21/24 documented as of this encounter
--- OUTSIDE RECORDS SUMMARY | 2025-02-19 12:06 | XMS_ITS | Encounter Summary ---
Author Organization [facility] Address [address] [place] [address] Phone Care Team Providers Care Therapist Physical Name Role Phone Generic Provider, No Assigned Pcp MD Primary Car e Provider Unavailable Nohemy Mills LIQUOR MERCHANT-AIRFRAME TECHNICAL OFFICER Primary Care P rovider Encounter Details Date Type Department Care Team (Late st Contact Info) Description 11/06/2024 Scanned Document [facility] [address] [place] [phone] Scanning, Generic Provider Social History Tobacco Use [...] place to sleep or slept in a [facility] (including now)? No 07/26/2023 Sex and Gender Information Value Date Recorded Sex Assigned at Not on file Legal Sex Male 2:05 PM EST Gender Identity Not on file Sexual Orientation Not on file COVID-19 Exposure Response Date Recorded In the last 10 days, have yo u been in contact with someone who was confirmed or suspected to have Coronavirus/COVID-19? No / Unsure 10/18/2024 12:54 PM EDT documented as of this encounter Plan of Treatment Upcoming Encounters Date Type Department Care Team (Late st Contact Info) Description 08/27/2025 2:40 PM EDT Office Visit [facility] [address] [facility] [address] [place] [address] Dallas Rebolledo MD [address] [facility] 2, [address] [place] [address] documented as of this encounter Procedures Procedure Name Priority Date/Time Associated Diagnosis Comments OUTSIDE LAB SCAN 11/06/2024 documented in this encounter Results * OUTSIDE LAB SCAN (11/06/2024) Narrative 11/06/2024 Ordered by an unspecified provider. Generic Provider Scanning OUTSIDE SCAN Final Result documented in this encounter Visit Diagnoses Not on filedocumented in this encounter Additional Health Concerns Assessment Noted Time A fall risk assessment has been complete d for the patient 03/14/2024 2:58 PM EDT documented as of this encounter Care Teams Therapist Physical Relationship Specialty Start Date End Date Generic Provider, [place] [address] PCP - General Senior Cisco Network Engineer 08/25/23 11/20/24 Nohemy Mills, LIQUOR MERCHANT-AIRFRAME TECHNICAL OFFICER [facility] [place] [address] PCP - General Family Medicine 11/21/24 documented as of this encounter
--- OUTSIDE RECORDS SUMMARY | 2025-02-19 12:06 | XMS_ITS | Clinical Summary ---
Author Organization [facility] Address [address] [place] [address] Phone Care Team Providers Care Thread Grinder Tool Name Role Phone Nohemy Mills APRN-ESL INSTRUCTOR Primary Care P rovider Allergies No known active allergies Medications acetaminophen (Tylenol 8 HOUR) 650 mg ER tablet Take 1 tablet (650 mg) by mouth every 8 hours if needed for mild pain (1 - 3). Do not crush, chew, or split. Active metoprolol succinate XL (Toprol-XL) 25 mg 24 hr tabletIndications:M ulti-vessel coronary artery stenosis Take 0.5 tablets (12.5 mg) by mouth once daily. Do not crush or chew. 45 tablet 3 4 03/14/20 25 Active lisinopril 2.5 mg tabletIndications:M ulti-vessel coronary artery stenosis Take 1 tablet (2.5 mg) by mouth once daily. 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 90 tablet 3 4 Active meloxicam (Mobic) 15 mg tablet Take 1 tablet (15 mg) by mouth early in the morning.. 5 Active allopurinol (Zyloprim) 100 mg tablet Take 1 tablet (100 mg) by mouth early in the morning.. 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 90 tablet 3 Active rosuvastatin (Crestor) 40 mg tabletIndications:M ixed hyperlipidemia Take 1 tablet (40 mg) by mouth once daily. 90 tablet 3 5 11/24/19 Active Active Problems Problem Noted Date Diagnosed Date Never smoked tobacco 11/21/2024 Multi-vessel coronary artery stenosis 09/09/2023 Postoperative atrial fibrillation (Multi) 2023 BMI 34.0-34.9,adult 09/09/2023 Mixed hyperlipidemia 07/19/2023 Asperger's syndrome 07/19/2023 Resolved Problems Problem Noted Date Diagnosed Date Resolved Date Anticoagulated 09/09/2023 03/14/2024 High risk medication use 09/09/202301/2025 Pleural effusion 09/09/2023 11/21/2024 Acute myocardial infarction due to left coronary artery occlusion (Multi) 07/19/20232023 Coronary artery disease of [place] artery of [place] heart with stable angina pectoris 07/19/2023 09/09/2023 Elevated troponin 07/19/2023 09/09/2023 Encounters Date Type Department Care Team Description 11/23/[address] [phone] Funmi Morris LPN 11/21/2024 1:30 PM EDT Office Visit [address] [address] Dallas Rebolledo MD Multi-vessel coronary artery stenosis (Primary Dx); Postoperative atrial fibrillation (Multi); Mixed hyperlipidemia; BMI 34.0-34.9,adult; Never smoked tobacco; Coronary artery disease of [place] artery of [place] heart with stable angina pectoris 11/21/2024 Travel from Last 3 Months Immunizations Immunization Administration Dates Next Due Flu vaccine (IIV4), preserva tive free *Check age/dose* 03/28/2023,04/01/2022,04/10/2021 Flu vaccine, quadrivalent, n o egg protein, age 6 month or greater (FLUCELVAX) 03/29/2024 Pneumococcal conjugate vacci ne, 20-valent (PREVNAR 20) 03/28/2023 Family History Medical History Relation Name Comments Rheumatic fever Mother Edil Parkinson White syndrome Sister Relation Name Status Comments Mother Sister Social History Tobacco Use Types Packs/Day Years Used Date Smoking Tobacco: Never Smokeless Tobacco: Never Tobacco Cessation:Counseling Given: Not Answered Alcohol Use Standard Drinks/Week Comments Yes 0 [...] place to sleep or slept in a penitentiary (including now)? No 07/26/2023 Sex and Gender Information Value Date Recorded Sex Assigned at Not on file Legal Sex Male 2:05 PM EST Gender Identity Not on file Sexual Orientation Not on file Last Filed Vital Signs Vital Sign Reading Time Taken Comments Blood Pressure 130/86 11/21/2024 1:17 PM EDT Pulse 76 11/21/2024 1:17 PM EDT Temperature 36.4 C (97.5 F) 08/25/2023 1:20 PM EDT Respiratory Rate 18 07/31/2023 5:35 AM EDT Oxygen Saturation 98% 08/25/2023 1:20 PM EDT Inhaled Oxygen Concentration - - Weight 104 kg (229 lb 12.8 oz) 11/21/2024 1:17 P M EDT Height 172.7 cm (5' 8 ) 11/21/2024 1:17 PM EDT Body Mass Index 34.94 11/21/2024 1:17 PM EDT Plan of Treatment Upcoming Encounters Date Type Department Care Team (Late st Contact Info) Description 08/27/2025 2:40 PM EDT Office Visit [facility] [address] [facility] [address] [place] [address] Dallas Rebolledo MD [address] [facility] [address] [place] [address] Health Maintenance Due Date Last Done Comments CT Colonography 1961 Colonoscopy 1961 Colorectal Cancer Screening 1961 FIT-DNA (Cologuard) 1961 FIT 1961 HIV Screening 1961 Sigmoidoscopy 1961 MMR Vaccines (1 of 1 - Standard series) 1962 Hepatitis C Screening 09/22/1979 DTaP/Tdap/Td Vaccines (1 - Tdap) 09/22/1983 PSA Prostate Cancer Screening 09/22/2011 Zoster Vaccines (1 of 2) 09/22/2011 RSV High Risk: (Elderly (60+) or Population) (1 - Risk 60-74 years 1-dose series) 2021 Yearly Adult Physical 03/09/2024 03/08/2023 , 07/09/2022, 08/18/2021 Diabetes Screening 07/30/2024 07/31/2023, 0 07/31/2023, 07/31/2023, Additional history exists COVID-19 Vaccine ( - 2024- season) 2025 04/29/2021, 10/08/2020, 09/12/2020 Influenza Vaccine (#1) 2025 , 03/28/2023, 04/01/2022, Additional history exists Lipid Panel 07/18/2028 07/19/2023, 07/19/2023 Pneumococcal Vaccine Completed 03/28/2023 HIB Vaccines Aged Out No longer eligi ble based on patient's age to complete this topic HPV Vaccines Aged Out No longer eligi ble based on patient's age to complete this topic Hepatitis A Vaccines Aged Out No long er eligible based on patient's age to complete this topic Hepatitis B Vaccines Aged Out No long er eligible based on patient's age to complete this topic IPV Vaccines Aged Out No longer eligi ble based on patient's age to complete this topic Meningococcal Vaccine Aged Out No demar jo eligible based on patient's age to complete this topic Rotavirus Vaccines Aged Out No longer eligible based on patient's age to complete this topic Medical Devices Implanted Type Area Wellness Health Coach Device Identifier Shelf Expiration Date Model / Serial / Lot Cardioplegia Set - [id number] Implanted:Qty: 1 on 07/25/2023 by Scar Meade MD at [facility] Heart Valve N/A: Heart [employer] [id number] 12/08/2025 [id number] / / [id number] Procedures Procedure Name Priority Date/Time Associated Diagnosis Comments BASIC METABOLIC PANEL Routine 07/31/2023 4:22 AM EDT LIPID PANEL Add-On 07/19/2023 3:43 PM EST from Last 3 Months or Most Recently Relevant to Health Maintenance Results * (ABNORMAL) Basic Metabolic Panel (07/31/2023 4:22 AM EDT) [facility] Glucose 96 74 - 99 mg/dL LAB CHEMISTRY METHOD 07/31/2023 5:28 AM EDT [facility] Sodium 137 136 - 145 mmol/L LAB CHEMISTRY METHOD 07/31/2023 5:28 AM EDT [facility] Potassium 4.0 3.5 - 5.3 mmol/L LAB CHEMISTRY METHOD 07/31/2023 5:28 AM EDT [facility] Chloride 106 98 - 107 mmol/L LAB CHEMISTRY METHOD 07/31/2023 5:28 AM EDT [facility] Bicarbonate 22 21 - 32 mmol/L LAB CHEMISTRY METHOD 07/31/2023 5:28 AM EDT [facility] Anion Gap 13 10 - 20 mmol/L LAB CHEMISTRY METHOD 07/31/2023 5:28 AM EDT [facility] Urea Nitrogen 23 6 - 23 mg/dL LAB CHEMISTRY METHOD 07/31/2023 5:28 AM EDT [facility] Creatinine 1.12 0.50 - 1.30 mg/dL LAB CHEMISTRY METHOD 07/31/2023 5:28 AM EDT [facility] eGFR 75 >60 mL/min/1. 73m*2 LAB CHEMISTRY METHOD 07/31/2023 5:28 AM EDT [facility] Comment: Calculations of estimated GFR are performed using the 2020 CKD-EPI Study Refit equation without the race variable for the IDMS-Traceable creatinine methods. https://jasn.asnjournals.org/content/early//ASN.0399035554 Calcium 8.5(L) 8.6 - 10.3 mg/dL LAB CHEMISTRY METHOD 07/31/2023 5:28 AM EDT [facility] Blood Venous blood specimen / Unknown Arterial Line / Unknown 07/31/2023 4:22 AM EDT 07/31/2023 5:02 AM EDT us Kaitlyn Henry HYDRAULIC MINER-ESL INSTRUCTOR LAB BLOOD ORDERABLES Fin al Result [facility] [address] [place], [place] [id number] * (ABNORMAL) Lipid panel (07/19/2023 3:43 PM EST) Cholesterol 206(H) 0 - 199 mg/dL LAB CHEMISTRY METHOD 07/19/2023 7:13 PM EST [facility] Comment: Age Desirable Borderline High High 0-19 Y 0 - 169 170 - 199 >/= 200 20-24 Y 0 - 189 190 - 224 >/= 225 >24 Y 0 - 199 200 - 239 >/= 240 All ranges are based on fasting samples. Specific therapeutic targets will vary based on patient-specific cardiac risk. Pediatric guidelines reference:Pediatrics 2011, 128(S5).Adult guidelines reference: NCEP ATPIII Guidelines,JAROD 2001, 258:2486-97 Venipuncture immediately after or during the administration of Metamizole may lead to falsely low results. Testing should be performed immediately prior to Metamizole dosing. HDL-Cholesterol 55.7 mg/dL LAB CHEMISTRY METHOD 07/19/2023 7:13 PM [facility] Comment: Age Very Low Low Normal High 0-19 Y < 35 < 40 40-45 ---- 20-24 Y ---- < 40 >45 ---- >24 Y ---- < 40 40-60 >60 Cholesterol/HDL Ratio 3.7 LAB CHEMISTRY METHOD 07/19/2023 7:13 PM [facility] Comment: Ref Values Desirable < 3.4 High Risk > 5.0 LDL Calculated 121(H) <=99 mg/dL LAB CHEMISTRY METHOD 07/19/2023 7:13 PM [facility] Comment: Near Borderline AGE Desirable Optimal High High Very High 0-19 Y 0 - 109 --- 110-129 >/= 130 ---- 20-24 Y 0 - 119 --- 120-159 >/= 160 ---- >24 Y 0 - 99 100-129 130-159 160-189 >/=190 VLDL 30 0 - 40 mg/dL LAB CHEMISTRY METHOD 07/19/2023 7:13 PM [facility] Triglycerides 148 0 - 149 mg/dL LAB CHEMISTRY METHOD 07/19/2023 7:13 PM [facility] Comment: Age Desirable Borderline High High Very High 0 D-90 D 19 - 174 ---- ---- ---- 91 D- 9 Y 0 - 74 75 - 99 >/= 100 ---- 10-19 Y 0 - 89 90 - 129 >/= 130 ---- 20-24 Y 0 - 114 115 - 149 >/= 150 ---- >24 Y 0 - 149 150 - 199 200- 499 >/= 500 Venipuncture immediately after or during the administration of Metamizole may lead to falsely low results. Testing should be performed immediately prior to Metamizole dosing. Non HDL Cholesterol 150(H) 0 - 149 mg/dL LAB CHEMISTRY METHOD 07/19/2023 7:13 PM EST [facility] Comment: Age Desirable Borderline High High Very High 0-19 Y 0 - 119 120 - 144 >/= 145 >/= 160 20-24 Y 0 - 149 150 - 189 >/= 190 ---- >24 Y 30 mg/dL above LDL Cholesterol goal Blood Venous blood specimen / Unknown 07/19/2023 3:43 PM EST 07/19/2023 3:43 PM EST Attila Salgado MD LAB BLOOD ORDERABLES Final Resu lt [facility] [address] [place] [address] from Last 3 Months or Most Recently Relevant to Health Maintenance Insurance (Work) [address] Advance Directives For more information, please contact: [phone] (Available ) Documents on File Type Date Recorded Patient Lock And Dam Operator Expl anation Healthcare Power of Atty 08/01/2023 Living Will 08/01/2023 * Full Code (Latest Code Status on File) Date Activated Date Inactivated Comments 07/19/2023 5:46 AM Question Answer Comments Plan of Care: Code Status Discussion Completed Decision Maker: Patient Care Teams Thread Grinder Tool Relationship Specialty Start Date End Date Nohemy Mills, HYDRAULIC MINER-ESL INSTRUCTOR [address] [place] [address] PCP - General Family Medicine 11/21/24
--- OUTSIDE RECORDS SUMMARY | 2025-02-19 12:06 | XMS_ITS | Clinical Summary ---
Author Organization [facility] tem Address [id number] [address] [place] [address] Care Team Providers Care Block Out Machine Operator Name Role Phone Geovanny Merrill BENEFITS ASSISTANT-CATTLE FEEDER Primary Care Provider [phone] Allergies No known active allergies Medications * [...] of 2) 09/22/2011 COVID-19 Vaccine (4 - 2024-2 6 season) 2025 04/29/2021, 10/08/2020, 09/12/2020 Influenza Vaccine 01/14/2025 04/01/2022, 04/10/2021 Medical Devices Not on file Insurance [place] Advance Directives * Full Code (Latest Code Status on File) Date Activated Date Inactivated Comments 10/13/2017 12:34 PM 10/19/2017 8:40 PM Care Teams Block Out Machine Operator Relationship Specialty Start Date End Date Geovanny Merrill APRN-IRENA PCP - General Primary Care Provider 03/10/23
--- OUTSIDE RECORDS SUMMARY | 2025-02-19 12:07 | XMS_ITS | Patient Health Record ---
Author Organization [facility] vices Address [address] [place], [place] [id number] Care Team Providers Care Change Management Name Role Phone Nohemy Mills Primary Care Provider Geovanny Walsh Unavailable [phone] Allergies No Known Allergies Results Component Value Reference Range Notes Urine Dip Reviewed date:06/28/2024 02:28:54 PM Interpretation: Performing Lab: Notes/Report: Bilirubin neg Occult Blood neg Glucose neg Ketones neg WBC + Nitrite neg Ph 6.0 Protein + Specific Vista 1.025 Color Yellow Urine Dip Reviewed date:07/16/2024 05:58:13 PM Interpretation: Performing Lab: Notes/Report: Bilirubin neg Occult Blood neg Glucose neg Ketones neg WBC neg Nitrite neg Ph 6.0 Protein neg Specific Vista 1.035 Color yellow Appearance clear Reason For Referral No Information Medications Medication SIG (Take, Route, Frequency, Duration) Notes Start Date End Date Status Lisinopril 2.5 MG TAKE 1 TABLET BY ONCE DAILY Oral; Duration: 30 Days Active Aspirin Low Dose 81 MG Oral; Duration: 90 Days Active Allopurinol 100 MG 1 tablet Orally Once a day; Duration: 90 days 01/30/2024 Active Meloxicam 15 MG 1 tablet Orally Once a day; Duration: 90 days Active Metoprolol Succinate ER 25 MG TAKE 1/2 (ONE-HALF) OF A TABLET BY MOUTH ONCE DAILY Oral; Duration: 90 Days Active Zanaflex 4 MG 1 tablet at bedtime as needed Orally Once a day; Duration: 30 days 07/16/2024 Active Rosuvastatin Calcium 40 MG TAKE 1 TABLET BY MOUTH DAILY Oral; Duration: 90 Days Active Immunizations Vaccine Route Administration Date Status Comme nts *Nbacsrsrn-Varcemqlj-Gtjlz te IM Intramuscular 03/29/2024 Administered Social History [...] PRAPARE Question Answer Notes Date Completed/Updated: 06/28/2024 blairee nt entered data What is your current housing situation? I have housing patient entered data Are you worried about losing your housing? No patient entered data What is the highest level of school that you have finished? High school diploma or GED patient entered data What is your current work situation? Otherwise unemployed but not seeking work (ex. 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 Stress is when someone feels tense, nervous, anxious, or can't sleep at night because their mind is troubled Not at all patient entered data In the past year have you sp ent more than 2 nights in a row in a residential, chcf, residential center, or juvenile correctional facility? No patient entered data Are you a refugee? No patient en tered data What country are you from? [place] chu velasco entered data Do you feel physically and emotionally safe where you currently live? Yes patient entered data In the past year, have you b een afraid of your partner or ex-partner? No patient entered data PRAPARE Score: 4 Problems Problem Type SNOMED Code ICD Code Onset Dates Problem Status W/U Status Risk Notes Problem Obesity (570550182) Obesity, unspecified (E66.9) Active confirmed Problem Mixed hyperlipidemia (672305005) Mixed hyperlipidemia (E78.2) Active confirmed Problem Body mass index 30.00 to 34.99 (883861022882734) Body mass index [BMI] 33.0-33.9, adult (Z68.33) Active confirmed Problem Obese class II (213652821598233) BMI 35.0-35.9,adult (Z68.35) Active confirmed Problem Myocardial infarction (10848872) Myocardial infarction (I21.9) Active confirmed Problem Gout (28768240) Gout (M10.9) Active confirmed Problem Atherosclerotic heart disease of tangirnaq coronary artery without angina pectoris (277416182899299) Coronary artery disease involving tangirnaq coronary artery of tangirnaq heart without angina pectoris (I25.10) Active confirmed Vital Signs Heart Rate 80 /min 12/24/2024 denies pain. Milly Platt 12/24/2024 02:48:06 PM EDT > Temperature 98.0 degrees Fahrenheit 12/24/2024 rasheeda es pain. Milly Ham 12/24/2024 02:48:06 PM EDT > Respiratory Rate 18 /min 12/24/2024 denies pain . Milly aHm 12/24/2024 02:48:06 PM EDT > Blood pressure diastolic 70 mm Hg 12/24/2024 den ies pain. Milly Ham 12/24/2024 02:48:06 PM EDT > Oximetry 95 % 12/24/2024 denies pain. Milly Platt 12/24/2024 02:48:06 PM EDT > Height-cm 172.72 cm 12/24/2024 denies pain. Milly Platt 12/24/2024 02:48:06 PM EDT > Weight-kg 105.05 kg 12/24/2024 denies pain. Milly Platt 12/24/2024 02:48:06 PM EDT > Height 68 in 12/24/2024 denies pain. Milly Platt 12/24/2024 02:48:06 PM EDT > Blood pressure systolic 108 mm Hg 12/24/2024 rasheeda es pain. Milly Ham 12/24/2024 02:48:06 PM EDT > Weight 231.6 lbs 12/24/2024 denies pain. Milly Platt 12/24/2024 02:48:06 PM EDT > BMI 35.21 kg/m2 12/24/2024 denies pain. Milly Platt 12/24/2024 02:48:06 PM EDT > Encounters Encounter Location Date Provider Diagnosis Main [address] [id number] 03/29/2024 Nohemy Mills Well adult exam Z00. 00 ; Screening for cardiovascular condition Z13.6 ; Screening for colorectal cancer Z12.11 ; Flu vaccine need Z23 ; Obesity, unspecified E66.9 and BMI 32.0-32.9,adult Z68.32 Main [address] [place], [place] [id number] 06/28/2024 Nohemy Mills Gout M10.9 ; Mixed hyperlipidemia E78.2 ; Coronary artery disease involving tangirnaq coronary artery of tangirnaq heart without angina pectoris I25.10 ; Dysuria R30.0 ; Urinary tract infection without hematuria, site unspecified N39.0 ; Body mass index [BMI] 33.0-33.9, adult Z68.33 and Obesity, class 1 E66.811 [address] [id number] 07/16/2024 Nohemy Mills Left flank pain R10. 9 ; Body mass index [BMI] 33.0-33.9, adult Z68.33 and Obesity, class 1 E66.811 [address] [place], [place] [id number] 12/24/2024 Nohemy Mills Mixed hyperlipidemia E78.2 ; Gout M10.9 ; Coronary artery disease involving tangirnaq coronary artery of tangirnaq heart without angina pectoris I25.10 ; Obesity, Class II, BMI 35-39.9 E66.812 and BMI 35.0-35.9,adult Z68.35 Assessments Encounter Date Diagnosis (ICD Code) Assessment Notes Treatment Notes Treatment Clinical Notes Section Notes 03/29/2024 Screening for cardiovascular condition (ICD-10 - [...] heat as needed. Gentle stretching. F/u PRN 12/24/2024 Mixed hyperlipidemia (ICD-10 - E78.2) Pt is stable on current medications. Will continue current medications. F/u 6 months & PRN 12/24/2024 Gout (ICD-10 - M10.9) Pt is stable on current medications. Will continue current medications. F/u 6 months & PRN 12/24/2024 Coronary artery disease involving tangirnaq coronary artery of tangirnaq heart without angina pectoris (ICD-10 - I25.10) Pt to continue to f/u with Cardiology 07/16/2024 Obesity, class 1 (ICD-10 - E66.811) 06/28/2024 Coronary artery disease involving tangirnaq coronary artery of tangirnaq heart without angina pectoris (ICD-10 - I25.10) Pt to continue to f/u with Cardiology 03/29/2024 Screening for colorectal cancer (ICD-10 - Z12.11) 03/29/2024 Flu vaccine need (ICD-10 - Z23) 06/28/2024 Dysuria (ICD-10 - R30.0) 12/24/2024 Obesity, Class II, BMI 35-39.9 (ICD-10 - E66.812) 06/28/2024 Urinary tract infection without hematuria, site unspecified (ICD-10 - N39.0) UA reviewed. Will treat with antibiotics. Push fluids. F/u PRN 12/24/2024 BMI 35.0-35.9,adult (ICD-10 - Z68.35) Body Mass Index: Care Instructions material was printed 03/29/2024 Obesity, unspecified (ICD-10 - E66.9) Body Mass Index: Care Instructions material was printed 03/29/2024 BMI 32.0-32.9,adult (ICD-10 - Z68.32) 06/28/2024 Body mass index [BMI] 33.0-33.9, adult (ICD-10 - Z68.33) Body Mass Index: Care Instructions material was printed 06/28/2024 Obesity, class 1 (ICD-10 - E66.811) Plan Of Treatment Next Appt Details Provider Name:Nohemy Kierra bergman, 04/04/2025 12:45:00 PM, [address], [place], [id number], Insurance Providers Payer Name Payer Address Payer Phone Subscriber Number Group Number Insured Name Patient Relationship to Insured Coverage Start Date Coverage End Date [facility] [address] [facility] [address] [id number] Robert Smiley Self - patient is the insured 4 Medicaid [facility] [place] [address] [place] [address] [id number] Robert Smiley Self - patient is the insured 4 Medical (General) History Medical History History ICD Code Myocardial infarct I21.9 Arthritis M19.90 Gout M10.9 Hyperlipemia E78.5 Surgical History Surgery Date(Month/Year) tonsillectomy and adenoidectomy appendectomy heart stents x2 Heart surgery 07/25/23 Hospitalization History Reason Date(Month/Year) see above
--- OUTSIDE RECORDS SUMMARY | 2025-02-19 12:14 | XMS_ITS | CCD ---
Author Organization [facility] Care Team Providers Care Knitting Tester Name Role Phone Daniele Hernandez Primary Care Physician DO Daniele Hernandez Primary Care Provider MD Cora Lee Attending Provider [phone] 1 House , Sr Daniele Levy Primary Care Provider [phone] SR DANIELE HERNANDEZ Primary Care Unavailable BIANCA PHAN Admitting Unavailable BIANCA PHAN Attending Unavailable BIANCA PHAN Admitting Unavailable BIANCA PHAN Attending Unavailable HOUSE, DR FALCON Admitting Unavailable HOUSE, DR FALCON Attending Unavailable HOUSE, DR FALCON Primary Care Unavailable HOUSE, DR FALCON Consulting Unavailable HOUSE, DR FALCON Admitting Unavailable HOUSE, DR FALCON Attending Unavailable HOUSE, DR FALCON Primary Care Unavailable HOUSE, DR FALCON Consulting Unavailable LUE ., CORA Parish Admitting Unavailable LUE ., CORA Parish Attending Unavailable HOUSE, DR FALCON Primary Care Unavailable LUE ., CORA Parish Consulting Unavailable LUE ., CORA Parish Admitting Unavailable LUE ., CORA Parish Attending Unavailable HOUSE, DR FALCON Primary Care Unavailable LUE ., CORA Parish Consulting Unavailable Daniele Hernandez Primary Care Physician [phone] Unavailable Primary Care Provider Unavailabl e Unavailable Primary Care Provider Unavailabl e Garfield Geovanny T Primary Care Unavailable Apolinar Dela Cruz Attending Unavailabl Mendoza Montgomery Admitting Unavailable Laurie Johnson Consulting Unavailable Martell Horton Consulting Unavailable Gatito Harp Consulting Linda Rao Consulting Unavailable Generic Provider , No Assigned Pcp Primary Car e Provider Unavailable GEOVANNY MERRILL Primary Care Physician Generic Provider MD, No Assigned Pcp Primary Car e Provider Unavailable Generic Provider , No Assigned Pcp Primary Car e Provider Unavailable LEONARD RAMIREZ Referring Unavailable Gene PREPARED 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 CONTRACTNohemy Primary Care P cathleen SHAMGA, GEOVANNY Primary Care Unavailable Cora Lee Attending Unavailable SHAMMO, GEOVANNY Primary Care Unavailable Cora Lee Attending Unavailable SHAMMO, GEOVANNY Primary Care Unavailable Cora Lee Attending Unavailable SHAMMO, GEOVANNY Primary Care Unavailable Cora Lee Attending Unavailable TRABOULSSI, MOURHAF Attending Unavailable TRABOULSSI, MOURHAF Referring Unavailable GENERIC PROVIDER, NO ASSIGNED PCP Primary Care Unavailable TRABOULREMYI, MOURHAF Attending Unavailable JAMES, MOURHAF Referring Unavailable NOHEMY MILLS Primary Care Unavail able Allergies Allergy Classification Reported Allergen(s) Allergy Type Date of Onset Reaction(s) Facility (1 source) No Known Medication Allergies; Translations: [No Known Medication Allergies] Propensity to adverse reactions (disorder) [facility] Medications Current Medications Medication Drug Class(es) Dates Sig (Normalized) Sig (Original) acetaminophen 325 mg oral tablet (9 sources) Start: 07-19-2023 take 650 mg by mouth every four hours as needed 650 mg, oral, Every 4 hours PRN, fever (temp greater than 38.0 C), greater than or equal to 38 C, Starting on Tue07/19/23 at 0545 If ordered PRN for pain, nurse is permitted to administer this medication for higher pain scores based on patient preference? Yes take 1 tablet by lakhwinder th every eight hours as needed acetaminophen (Tylenol 8 HOUR) 650 mg ER tablet Take 1 tablet (650 mg) by mouth every 8 hours if needed for mild pain (1 - 3). Do not crush, chew, or split. Active albuterol 0.833 mg/ml / ipratropium bromide 0.167 mg/ml inhalation solution (1 source) Anticholinergic, beta2-Adrenergic Agonist Start: 07-25-2023 take 3 mL by inhalation every six hours as needed 3 mL, nebulization, Every 6 hours PRN, wheezing, Starting on 07/25/23 at 1355 allopurinol 100 mg oral tablet (1 source) Xanthine Oxidase Inhibitor Start: 07-09-2024 take 1 tablet by mouth in the morning allopurinol (Zyloprim) 100 mg tablet Take 1 tablet (100 mg) by mouth early in the morning.. 07/09/2024 Active aluminum hydroxide 40 mg/ml / magnesium hydroxide 40 mg/ml / simethicone 4 mg/ml oral suspension (1 source) Start: 07-21-2023 take 5 mL by mouth four times daily as needed for gastroesophageal reflux disease 5 mL, oral, 4 times daily PRN, indigestion, heartburn, Starting on Tue07/21/23 at 0822 amiodarone hydrochloride 200 mg oral tablet (14 sources) Antiarrhythmic Start: 08-02-2023 take 200 mg by mouth once daily 200 mg, oral, Daily, First dose on Tue08/02/23 at 0900 Start: 08-01-2023 End: 09-09-2023 take 1 tablet by mouth once daily amiodarone (Pacerone) 200 mg tablet Indications: Paroxysmal atrial fibrillation (Multi) Take 1 tablet (200 mg) by mouth once daily. Take 2 tablets by mouth once on July 31. On August 01 decrease to 1 table by mouth daily. Do not start before August 01, 2023. 31 tablet 08/01/2023 09/09/2023 Discontinued (Therapy completed) Start: 07-29-2023 End: 07-29-2023 150 mg, intravenous, Adminis ter over 10 Minutes, Once, On Tue07/29/23 at 1400, For 1 dose Use in-line filter. Administer through central venous catheter whenever available. Premix Start: 07-28-2023 End: 08-01-2023 take 400 mg by mouth once daily 400 mg, oral, Daily, F irst dose on Tue07/28/23 at 1200, For 5 doses Start: 07-28-2023 End: 07-28-2023 150 mg, intravenous, Adminis ter over 10 Minutes, Once, On Tue07/28/23 at 0900, For 1 dose Start: 07-27-2023 End: 07-27-2023 150 mg, intravenous, Adminis ter over 10 Minutes, Once, On Tue07/27/23 at 0445, For 1 dose Start: 07-27-2023 End: 07-27-2023 150 mg, intravenous, Adminis ter over 10 Minutes, Once, On Tue07/27/23 at 0000, For 1 dose Start: 07-27-2023 End: 07-28-2023 0.5-1 mg/min (16.6667-33.333 3 mL/hr, rounded to 16.67-33.33 mL/hr), intravenous, Continuous, Starting on Tue07/27/23 at 0000 Run at 1 mg/min for 6 hours, then decrease to 0.5 mg/min. Use in-line filter. Give through central venous catheter whenever available. Premix aspirin 81 mg oral tablet (18 sources) Platelet Aggregation Inhibitor, Nonsteroidal Anti-inflammatory Drug Start: 05-30-2024 take 1 tablet by mouth once daily Aspirin Low Dose 81 mg oral tablet, chewable CHEW AND SWALLOW 1 (ONE) TABLET BY MOUTH DAILY; do not start before August 01, 2023 Start Date: 05/30/24 Status: Ordered Repeat number: 1 Start: 07-26-2023 End: 11-21-2024 aspirin 81 mg chewable table t Indications: Coronary artery disease of [place] artery of [place] heart with stable angina pectoris Chew and swallow 1 tablet (81 mg) once daily. 90 tablet 3 11/21/2024 Active Start: 07-25-2023 End: 07-25-2023 150 mg, rectal, Once, On Tue07/25/23 at 1415, For 1 dose, Phase II/On Unit Give within 6 hours postop. Use rectal route if oral/NG routes unavailable. HOLD for platelets LESS than 50,000. Start: 07-19-2023 End: 07-25-2023 take 81 mg by mouth once daily 81 mg, oral, Daily, Fir st dose on Tue07/19/23 at 0900 Do not crush, chew, or split. Start: 10-12-2017 End: 03-07-2020 take 81 mg by mouth once daily Aspirin Discontinued 81 MG PO Daily October 12, 2017 12:00am March 07, 2020 12:46pm atorvastatin 40 mg oral tablet (13 sources) HMG-CoA Reductase Inhibitor Start: 07-31-2023 End: 03-14-2024 take 1 tablet by mouth once daily at bedtime atorvastatin (Lipitor) 40 mg tablet Indications: Coronary artery disease of [place] artery of [place] heart with stable angina pectoris Take 1 tablet (40 mg) by mouth once daily at bedtime. 90 tablet 3 03/14/2024 Active Start: 07-19-2023 take 40 mg by mouth once daily 40 mg, oral, Nightly, First dose on Tue07/19/23 at 2100 Start: 10-12-2017 End: 03-07-2020 take 20 mg by mouth once daily Atorvastatin Discontinu ed 20 MG PO Daily October 12, 2017 12:00am March 07, 2020 12:46pm unsure of correct dose bisacodyl 10 mg rectal suppository (1 source) Stimulant Laxative Start: 07-25-2023 take 10 mg rectal route every twenty-four hours as needed 10 mg, rectal, Daily PRN, constipation, second line, Starting on Tue07/25/23 at 1355 2nd line for treatment of constipation - contact provider if no bowel movement in past 48 hours. brexpiprazole 0.5 mg oral tablet (1 source) Atypical Antipsychotic Start: 03-08-2020 take 1 tablet by mouth once daily Brexpiprazole (Rexulti) 0.5 mg Tablet Active 0.5 MG PO Daily March 08, 2020 12:00am clopidogrel 75 mg oral tablet (12 sources) P2Y12 Platelet Inhibitor Start: 10-12-2017 End: 07-31-2023 clopidogrel 75 mg Tab Refills(s) 0 Start Date: 09/14/21 Status: Ordered colchicine 0.6 mg oral tablet (1 source) Start: 07-27-2023 End: 08-06-2023 take 0.6 mg by mouth every twelve hours 0.6 mg, oral, Every 12 hours, First dose on Tue07/27/23 at 1015, For 10 days levoFLOXacin 500 mg oral tablet (1 source) Quinolone Antimicrobial Start: 09-14-2021 End: 10-12-2021 take 1 tablet by mouth once daily Levaquin 500 mg Tab 500 mg = 1 tab(s), Oral, Daily, X 4 week(s), # 28 tab(s), Refills(s) 0, Pharmacy: [id number], 176, cm, 09/14/21 14:27:00 EDT, Height/Length Dosing, 109, kg, 09/14/21 14:27:00 EDT, Weight Dosing Start Date: 09/14/21 Stop Date: 10/12/21 Status: Ordered lisinopril 2.5 mg oral tablet (5 sources) Angiotensin Converting Enzyme Inhibitor Start: 09-09-2023 End: 03-14-2025 take 1 tablet by mouth once daily lisinopril 2.5 mg tablet Indications: Multi-vessel coronary artery stenosis Take 1 tablet (2.5 mg) by mouth once daily. 90 tablet 3 03/14/2024 03/14/2025 Active magnesium oxide 400 mg oral tablet (8 sources) Start: 07-29-2023 End: 09-09-2023 take 1 tablet by mouth once daily magnesium oxide (Mag-Ox) 400 mg (241.3 mg magnesium) tablet Indications: Coronary artery disease of [place] artery of [place] heart with stable angina pectoris (CMS-HCC) , Paroxysmal atrial fibrillation (Multi) Take 1 tablet (400 mg) by mouth once daily. Do not start before August 01, 2023. 30 tablet 08/01/2023 09/09/2023 Discontinued (Therapy completed) melatonin 3 mg oral tablet (1 source) Start: 07-19-2023 take 3 mg by mouth once daily as needed for sleep 3 mg, oral, Nightly PRN, sleep, Starting on Tue07/19/23 at 0546 meloxicam 15 mg oral tablet (15 sources) Nonsteroidal Anti-inflammatory Drug Start: 09-05-2024 take 1 tablet by mouth in the morning meloxicam (Mobic) 15 mg tablet Take 1 tablet (15 mg) by mouth early in the morning.. 09/05/2024 Active Start: 03-08-2020 meloxicam 15 m g oral tablet Refills(s) 0 Start Date: 09/14/21 Status: Ordered End: 08-17-2023 take 1 tablet by mouth once daily meloxicam (Mobic) 7.5 mg tablet Take 1 tablet (7.5 mg) by mouth once daily. Unsure if dose is correct 08/17/2023 Discontinued (Discontinued by another clinician) 24 hr metoprolol succinate 25 mg extended release oral tablet (20 sources) beta-Adrenergic Roman Start: 05-30-2024 take 1 tablet by mouth once daily metoprolol succinate 25 mg ER Tab 25 mg = 1 tab(s), Oral, Daily, # 90 tab(s), Refills(s) 0 Start Date: 05/30/24 Status: Ordered Quantity: 90.0 Unit: tab(s) Repeat number: 1 Start: 09-09-2023 End: 03-14-2025 take 0.5 tablet by mouth once daily metoprolol succinate XL (Toprol-XL) 25 mg 24 hr tablet Indications: Multi-vessel coronary artery stenosis Take 0.5 tablets (12.5 mg) by mouth once daily. Do not crush or chew. 45 tablet 3 03/14/2024 03/14/2025 Active Start: 07-29-2023 End: 09-09-2023 take 1 tablet by mouth three times daily metoprolol tartrate (Lopressor) 25 mg tablet Indications: Coronary artery disease of [place] artery of [place] heart with stable angina pectoris (CMS-HCC) , Paroxysmal atrial fibrillation (Multi) Take 1 tablet (25 mg) by mouth 3 times a day. 90 tablet 07/31/2023 09/09/2023 Discontinued (Therapy completed) Start: 07-28-2023 End: 07-29-2023 take 25 mg by mouth twice daily 25 mg, oral, 2 times d aily, First dose (after last modification) on Tue07/28/23 at 2100 Hold for MAP<65 and/or HR<60 Start: 07-28-2023 take 12.5 mg by mouth once 12. 5 mg, oral, Once, On Tue07/28/23 at 1600, For 1 dose Start: 07-28-2023 5 mg, intraven ous, Once, On Tue07/29/23 at 1300, For 1 dose Start: 07-26-2023 End: 07-28-2023 take 12.5 mg by mouth twice daily 12.5 mg, oral, 2 times daily, First dose on Tue07/26/23 at 2100 Hold for MAP<65 and/or HR<60 Start: 07-19-2023 End: 07-26-2023 take 25 mg by mouth twice daily 25 mg, oral, 2 times d aily, First dose on Tue07/19/23 at 0900 mupirocin 0.02 mg/mg topical ointment (1 source) RNA Synthetase Inhibitor Antibacterial Start: 07-24-2023 apply 1 dose topically twice daily Topical, 2 times daily, First dose on Tue07/24/23 at 1245 Apply to bilateral nares 2 ml naloxone hydrochloride 1 mg/ml prefilled syringe (1 source) Opioid Antagonist Start: 07-25-2023 0.2 mg, intravenous, Every 5 min PRN, respiratory depression, Starting on Tue07/25/23 at 1355 If respiratory rate is less than 8 breaths/minute or patient is difficult to arouse stop any narcotics and contact physician. Administer slow IV push. Repeat as ordered until patient's respiratory rate is greater than 12 breaths/minute. oxyCODONE hydrochloride 5 mg oral tablet (8 sources) Opioid Agonist Start: 07-31-2023 End: 09-09-2023 take 1 tablet by mouth every six hours for pain oxyCODONE (Roxicodone) 5 mg immediate release tablet Indications: Coronary artery disease of [place] artery of [place] heart with stable angina pectoris (CMS-HCC) , Acute post-operative pain Take 1 tablet (5 mg) by mouth every 6 hours if needed for moderate pain (4 - 6). ICD10: I25.1, G89.18 28 tablet 07/31/2023 09/09/2023 Discontinued (Therapy completed) Start: 07-25-2023 oxygen (O2) therapy (1 source) Start: 07-25-2023 inhalation, Continuous PRN - O2/gases, other, Starting on Tue07/25/23 at 1355 Device: Ventilator FIO2: 100 Keep O2 Sat Above: 92% phenylephrine hydrochloride 25 mg/ml ophthalmic solution (1 source) alpha-1 Adrenergic Agonist Start: 03-15-2022 phenylephrine (MYDFRIN) 2.5 % ophthalmic solution 1 drop polysaccharide iron complex 150 mg oral capsule (8 sources) Start: 07-29-2023 End: 09-09-2023 take 1 capsule by mouth once daily iron polysaccharides (Nu-Iron,Niferex) 150 mg iron capsule Indications: Anemia due to blood loss Take 1 capsule (150 mg) by mouth once daily. Do not start before August 01, 2023. 30 capsule 08/01/2023 09/09/2023 Discontinued (Therapy completed) potassium chloride 10 meq extended release oral tablet (10 sources) Start: 08-25-2023 End: 09-09-2023 take 1 tablet by mouth once daily potassium chloride CR (Klor-Con) 10 mEq ER tablet Indications: Pleural effusion Take 1 tablet (10 mEq) by mouth once daily for 7 days. Do not crush, chew, or split. 7 tablet 08/25/2023 09/09/2023 Discontinued (Therapy completed) Start: 08-01-2023 End: 08-06-2023 Start: 08-01-2023 End: 08-06-2023 20 mEq, oral, Daily, First d ose on 08/01/23 at 0900, For 5 doses Best given with food and plenty of water to minimize gastric irritation. Do not crush or chew. Start: 07-29-2023 End: 07-30-2023 20 mEq, oral, Once, On Sat at 1200, For 1 dose Best given with food and plenty of water to minimize gastric irritation. Do not crush or chew. Start: 07-26-2023 take 40 mEq by mouth every six hours as needed 40 mEq, oral, Every 6 hours PRN, Potassium level 3.7 mmol/L or less, Starting on Tu07/26/23 at 1031 Best given with food and a glass of water to minimize gastric irritation. Do not crush or chew. proparacaine hydrochloride 5 mg/ml ophthalmic solution (1 source) Local Anesthetic Start: 03-15-2022 proparacaine (ALCAINE) 0.5 % ophthalmic solution 1 drop 1000 ml sodium chloride 9 mg/ml injection (10 sources) Start: 03-15-2022 IntraVENous, a t 5-250 mL/hr, PRN, if patient receiving piggyback [...] 0.4 mg oral capsule (1 source) alpha-Adrenergic Roman Start: 11-18-2021 take 1 capsule by mouth once daily tamsulosin 0.4 mg Cap 0.4 mg = 1 cap(s), Oral, Daily, # 30 cap(s), Refills(s) 3, Pharmacy: [id number], 176, cm, 11/18/21 10:41:00 EDT, Height/Length Dosing, 109, kg, 11/18/21 10:41:00 EDT, Weight Dosing Start Date: 11/18/21 Status: Ordered tetracaine hydrochloride 5 mg/ml ophthalmic solution (1 source) Marge Local Anesthetic Start: 03-15-2022 tetracaine (TETRAVISC) 0.5 % ophthalmic solution 1 drop tropicamide 10 mg/ml ophthalmic solution (1 source) Anticholinergic Start: 03-15-2022 tropicamide (MYDRIACYL) 1 % ophthalmic solution 1 drop (2 sources) Start: 07-25-2023 [Order 1 Start] Name: dextrose 50 % injection 25 g Signed Summary: 25 g, intravenous, Every 15 min PRN, low blood sugar - see comments, For BG 70 mg/dL or LESS & HAS IV access, Starting on Tue07/25/23 at 1657 IF patient HAS a secure IV access & is Unconscious, Conscious, NPO or Unable to Eat or Drink. Give IV Push at 2-3 mL/minute. Repeat every 15 minutes until BG reaches 100 mg/dL or greater, then DISCONTINUE. [Order 1 End] [Order 2 Start] Name: glucagon (Glucagen) injection 1 mg Signed Summary: 1 mg, intramuscular, Every 15 min PRN, low blood sugar - see comments, For BG 70 mg/dL or LESS & NO IV access, Starting on Tue07/25/23 at 1657 IF patient DOES NOT have secure IV access & is Unconscious, Conscious, NPO or Unable to Eat or Drink. Repeat every 15 minutes until BG reaches 100 mg/dL or greater, then DISCONTINUE. [Order 2 End] Start: 07-25-2023 take 10 mg by mouth every six hours as needed [Order 1 Start] Name: metoclopramide (Reglan) tablet 10 mg Signed Summary: 10 mg, oral, Every 6 hours PRN, nausea/vomiting, first line, Starting on Tue07/25/23 at 1355 1st Line. If inadequate response within 60 minutes, proceed to next-line agent or contact provider if no further options ordered. [Order 1 End] [Order 2 Start] Name: metoclopramide (Reglan) injection 10 mg Signed Summary: 10 mg, intravenous, Every 6 hours PRN, nausea/vomiting, first line, Starting on Tue07/25/23 at 1355 Give IV if patient is unable to take orally. [Order 2 End] Completed/Discontinued Medications Medication Drug Class(es) Dates Sig (Normalized) Sig (Original) 500 ml albumin human, skilled nursing 50 mg/ml injection (5 sources) Human Serum Albumin Start: 07-26-2023 End: 07-26-2023 25 g, intravenous, at 100 mL/hr, Administer over 1 Hours, Once, On Tue07/26/23 at 0745, For 1 dose Start: 07-25-2023 End: 07-26-2023 12.5 g, intravenous, at 250 mL/hr, Administer over 1 Hours, Once, On Tue07/26/23 at 0800, For 1 dose Start: 07-25-2023 End: 07-25-2023 Starting on Tue07/25/23 at 1 452, For 1 dose Created by sal chung apixaban 5 mg oral tablet (9 sources) Factor Xa Inhibitor Start: 07-29-2023 End: 03-14-2024 take 1 tablet by mouth every twelve hours apixaban (Eliquis) 5 mg tablet Indications: Paroxysmal atrial fibrillation (Multi) Take 1 tablet (5 mg) by mouth every 12 hours. 60 tablet 07/31/2023 03/14/2024 Discontinued (Therapy completed) ARIPiprazole 10 mg oral tablet (1 source) Atypical Antipsychotic End: 03-11-2022 take 1 tablet by mouth once daily ARIPiprazole (ABILIFY) 10 MG tablet Take 10 mg by mouth daily 0 03/11/2022 Discontinued (Therapy completed) benztropine mesylate 1 mg oral tablet (1 source) Anticholinergic, Antihistamine End: 03-11-2022 take 1 tablet by mouth twice daily benztropine (COGENTIN) 1 MG tablet Take 1 mg by mouth 2 times daily 0 03/11/2022 Discontinued (Therapy completed) calcium chloride 0.0014 meq/ml / potassium chloride 0.004 meq/ml / sodium chloride 0.103 meq/ml / sodium lactate 0.028 meq/ml injectable solution (6 sources) Start: 07-29-2023 End: 07-29-2023 500 mL, intravenous, at 250 mL/hr, Administer over 2 Hours, Once, On Tue07/29/23 at 1500, For 1 dose Start: 07-25-2023 End: 07-25-2023 500 mL, intravenous, at 250 mL/hr, Administer over 2 Hours, Once, On Tue07/25/23 at 1415, For 1 dose, Phase II/On Unit Start: 07-25-2023 End: 07-26-2023 take 50 mL intravenously every hour 50 mL/hr, intravenous, Continuous, Starting on Tue07/25/23 at 1415, For 10 hours, Phase II/On Unit Discontinue once tolerating PO Start: 07-19-2023 End: 07-19-2023 take 100 mL intravenously every hour 100 mL/hr, intravenous, Continuous, Starting on Tue07/19/23 at 0615 Start: 03-15-2022 lactated ringe rs infusion chlorhexidine gluconate 1.2 mg/ml mouthwash (1 source) Start: 07-24-2023 End: 07-26-2023 take 15 mL by mouth twice daily 15 mL, Mouth/Throat, 2 times daily, First dose on Tue07/24/23 at 1245 Do NOT swallow; Avoid eating for 2 to 3 hours after treatment. docusate sodium 100 mg oral capsule (1 source) Start: 07-26-2023 End: 07-30-2023 take 100 mg by mouth three times daily 100 mg, oral, 3 times daily, First dose on Tue07/26/23 at 1100 furosemide 20 mg oral tablet (15 sources) Loop Diuretic Start: 09-22-2023 End: 03-14-2024 take 1 tablet by mouth once daily furosemide (Lasix) 20 mg tablet Indications: Shortness of breath , Edema, unspecified type Take 1 tablet (20 mg) by mouth once daily. 90 tablet 3 09/22/2023 03/14/2024 Discontinued (Therapy completed) Start: 08-25-2023 End: 09-09-2023 take 1 tablet by mouth once daily furosemide (Lasix) 20 mg tablet Indications: Pleural effusion Take 1 tablet (20 mg) by mouth once daily for 7 days. 7 tablet 08/25/2023 09/09/2023 Discontinued (Therapy completed) Start: 08-01-2023 End: 09-09-2023 take 1 tablet by mouth once daily in the morning furosemide (Lasix) 40 mg tablet Indications: Coronary artery disease of [place] artery of [place] heart with stable angina pectoris (CMS-HCC) Take 1 tablet (40 mg) by mouth once daily in the morning for 5 doses. Do not start before August 01, 2023. 5 tablet 08/01/2023 09/09/2023 Discontinued (Therapy completed) Start: 07-30-2023 End: 07-31-2023 40 mg, intravenous, Daily, F irst dose on Tue07/30/23 at 1200 Start: 07-28-2023 20 mg, intrave nous, 2 times daily, First dose on Tue07/28/23 at 1000, For 2 doses Start: 07-27-2023 20 mg, intrave nous, Once, On Tue07/29/23 at 1030, For 1 dose 1 ml heparin sodium, porcine 5000 unt/ml injection (3 sources) Unfractionated Heparin, Anti-coagulant Start: 07-26-2023 End: 07-29-2023 inject 5000 [IU] by subcutaneous injection every eight hours 5,000 Units, subcutaneous, Every 8 hours, First dose on Tue07/26/23 at 0815 Start: 07-19-2023 End: 07-25-2023 0-4,000 Units/hr (0-40 mL/hr ), intravenous, Continuous, Starting on Tue07/19/23 at 0615, Until Tue07/25/23 at 0400 Low Intensity Heparin Protocol (70-124kg) &nb sp; Initial Dose: 12 units/kg/hr --> Use heparin calculator for units/hr rate Maximum Initial Dose: 1000 units/hr Recheck Heparin Assay, UFH level 4 hours after any rate change, or per protocol. Titration Table: Heparin Assay, UFH < 0.1: Bolus 4,000 units, INCREASE rate by 300 units/hr. Heparin Assay, UFH 0.1 to 0.2: Bolus 2,000 units. INCREASE rate by 200 units/hr. Heparin Assay, UFH 0.3 to 0.6: (THERAPEUTIC) DO NOT CHANGE Infusion Rate. No Bolus. Heparin Assay, UFH 0.7 to 1: No Bolus. DECREASE rate by 200 unit/hour. Heparin Assay, UFH 1.1 to 1.2: No Bolus. HOLD heparin infusion for 1 hour, then DECREASE rate by 200 units/hour. Heparin Assay, UFH > 1.2: No Bolus. HOLD heparin infusion for 1 hour, then recheck heparin assay. If repeat is > 0.6, continue to HOLD INFUSION. Confirm last draw was performed correctly (pump was paused for a minimum of 2 minutes, sample NOT drawn off line/lumen where medication was infusing) and contact provider for further orders. If repeat is <= 0.6, REDUCE previous infusion rate by 300 units/hour and restart infusion. Recheck Heparin Assay, UFH in 4 hours after dose reduction, resume nomogram. Start: 07-19-2023 End: 07-25-2023 take [id number] [IU] intravenously every four hours as needed 2,000-4,000 Units, intravenous, Every 4 hours PRN, per current Heparin Assay, UFH result, Starting on Tue07/19/23 at 0547 Heparin Assay, UFH <0.1: Enter a 0 into the Heparin Assay, UFH field Heparin Assay, UFH <0.1 Bolus Dose (units): 4000 Heparin Assay, UFH 0.1-0.2 Bolus Dose (units): 2000 Heparin Assay, UFH 0.3-0.6 Bolus Dose (units): 0 Heparin Assay, UFH 0.7-1 Bolus Dose (units): 0 Heparin Assay, UFH 1.1-1.2 Bolus Dose (units): 0 Heparin Assay, UFH >1.2 Bolus Dose (units): 0 Heparin Assay, UFH >2: Enter a 2 into the Heparin Assay, UFH field 1 ml HYDROmorphone hydrochloride 0.2 mg/ml prefilled syringe (1 source) Opioid Agonist Start: 07-25-2023 End: 07-26-2023 0.2 mg, intravenous, Every 15 min PRN, pain severe (7-10), first line, Starting on Tue07/25/23 at 1355 insulin lispro 100 unt/ml injectable solution (2 sources) Insulin Analog Start: 07-26-2023 End: 07-29-2023 0-15 Units, subcutaneous, 4 times daily before meals and nightly, First dose (after last modification) on Tue07/26/23 at 1100, Phase II/On Unit For BG = 0- 70: Notify provider AND initiate hypoglycemia management interventions For BG = 71-140: zero units (at goal) For BG = 141-180: 5 units For BG = 181-220: 10 units For BG = 221-260: 15 units For BG GREATER 260: Notify provider Notify provider IF: TWO CONSECUTIVE draws are GREATER than 200 Start: 07-25-2023 End: 07-26-2023 0-15 Units, subcutaneous, Ev baylee 4 hours, First dose on Tue07/25/23 at 1800 For BG = 0- 70: Notify provider AND initiate hypoglycemia management interventions For BG = 71-140: zero units (at goal) For BG = 141-180: 5 units For BG = 181-220: 10 units For BG = 221-260: 15 units For BG GREATER 260: Notify provider Notify provider IF: TWO CONSECUTIVE draws are GREATER than 200 24 hr isosorbide mononitrate 30 mg extended release oral tablet (1 source) Nitrate Vasodilator Start: 07-19-2023 End: 07-26-2023 take 30 mg by mouth once daily 30 mg, oral, Daily, First dose on Tue07/19/23 at 0900 Do not crush, chew, or split. lidocaine 0.04 mg/mg medicated patch (1 source) Antiarrhythmic, Amide Local Anesthetic Start: 07-25-2023 End: 07-28-2023 apply 1 dose transdermal route every twenty-four hours 1 patch, transdermal, Administer over 24 Hours, Every 24 hours, First dose on Tue07/25/23 at 1415, For 3 doses Apply to chest next to incision. 100 ml magnesium sulfate 40 mg/ml injection (3 sources) Start: 07-25-2023 take 2 g intravenously every six hours as needed 2 g, intravenous, at 25 mL/hr, Administer over 2 Hours, Every 6 hours PRN, magnesium level 1.7-1.9 mg/dL, Starting on Tue07/25/23 at 1355 Start: 07-25-2023 End: 07-29-2023 4 g, intravenous, at 25 mL/h r, Administer over 4 Hours, Once, On Tue07/29/23 at 1315, For 1 dose norepinephrine (Levophed) 8 mg in dextrose 5% 250 mL (0.032 mg/mL) infusion (premix) (1 source) Start: 07-25-2023 End: 07-26-2023 0-1 mcg/kg/min 103 kg (0-193.125 mL/hr, rounded to 0-193.13 mL/hr), intravenous, Continuous, Starting on Tue07/25/23 at 1415 Notify ICU team for titrations greater than .02 mcgs/kg/min. Notify ICU team if reach max dose of 0.1 mcgs/kg/min. Titration Goal: Use Adult Parameters Target Parameter: MAP 60 to 80 Initial dose: 0.01 mcg/kg/min Bidirectional Titration Dose: 0.01 mcg/kg/min Titration Frequency: Every 1 minute polyethylene glycol 3350 [id number] mg powder for oral solution (1 source) Osmotic Laxative Start: 07-25-2023 End: 07-30-2023 17 g, oral, Daily, First dose on Tue07/25/23 at 1415 Bowel Regimen - for prevention of constipation. 10 ml propofol 10 mg/ml injection (1 source) General Anesthetic Start: 07-25-2023 End: 07-25-2023 0-50 mcg/kg/min 103 kg (0-30.9 mL/hr), intravenous, Continuous, Starting on Tue07/25/23 at 1415, Phase II/On Unit Titration Goal: Use Adult Parameters Target Parameter: RASS 0 to -2 Initial dose: 5 mcg/kg/min Bidirectional Titration Dose: 5 mcg/kg/min Titration Frequency: Every 5 minutes (1 source) Start: 07-25-2023 End: 07-27-2023 take 1500 mg intravenously every twelve hours 1,500 mg, intravenous, at 333.3 mL/hr, Administer over 90 Minutes, Every 12 hours, First dose on Tue07/25/23 at 2000, For 48 hours Surgical prophylaxis x 48 hours Dosing of this medication varies based on severity of illness. Does this patient have sepsis or concern for sepsis (probable or documented infection plus systemic manifestations of infection)? No Suspected Indication (Select all that apply): Surgical Prophylaxis (1 source) Start: 07-19-2023 End: 07-19-2023 0.5-10 mL of dilution, intravenous, Once in imaging, Starting on Tue07/19/23 at 1325, For 1 dose, CV Medications Contrast - for use by imaging provider only. Prior to administration, Definity product must be activated. First, bring vial to room temperature. Then, shake vial for 45 seconds. Do not use if the 45 second activation cycle has not been completed. Following activation, the product will appear as a milky white suspension and may be used immediately. If not used within 5 minutes of activation, re-suspend by inverting and shaking the vial for 10 seconds. Discard unused product. Administration:& nbsp;Dilute 1.3 mL of activated DEFINITY with 8.7 mL of normal saline in a 10 mL syringe. Inject 0.5 mL of diluted DEFINITY when notified the images/film are unclear to enhance view of Left Ventricular borders. Repeat 0.5 mL of DEFINITY until clear images are obtained, not to exceed 10 mLs. Once images are obtained or limit of medication is reached, flush line with 10 mL of Normal Saline. Problems Active Problems Problem Classification Problem Date Documented Da te Episodic/Chronic Adjustment disorders (1 source) Adjustment disorder; Translations: [Adjustment disorder, unspecified] 03-07-2020 Chronic Cardiac dysrhythmias (9 sources) Paroxysmal atrial fibrillation; Translations: [Paroxysmal atrial fibrillation] Onset: 09-09-2023 07-30-2023 Chronic Cataract (5 sources) Senile combined form cataract of right eye; Translations: [Combined forms of age-related cataract, right eye] Onset: 09-03-2018 Resolved: 03-15-2022 Chronic Conditions associated with dizziness or vertigo (1 source) Dizziness; Translations: [Dizziness and giddiness] 08-17-2023 Episodic Coronary atherosclerosis and other heart disease (20 sources) Coronary arteriosclerosis; Translations: [Atherosclerotic heart disease of [place] coronary artery with other forms of angina pectoris] Onset: 07-17-2023 Resolved: 09-09-2023 07-19-2023 Chronic Deficiency and other anemia (1 source) Anemia due to blood loss; Translations: [Iron deficiency anemia secondary to blood loss (chronic)] 07-30-2023 Chronic Disorders of lipid metabolism (20 sources) Hyperlipidemia; Translations: [Hyperlipidemia, unspecified] Onset: 07-19-2023 07-19-2023 Chronic Disorders usually diagnosed in infancy, childhood, or adolescence (15 sources) Autistic disorder; Translations: [Autistic disorder] Onset: 07-19-2023 03-07-2020 Chronic Genitourinary symptoms and ill-defined conditions (1 source) Nocturia; Translations: [Nocturia] Onset: 11-18-2021 Episodic Hyperplasia of prostate (13 sources) Benign prostatic hypertrophy without outflow obstruction; Translations: [Benign prostatic hyperplasia without lower urinary tract symptoms] Onset: 12-23-2021 Chronic Inflammatory conditions of male genital organs (1 source) Prostatitis; Translations: [Inflammatory disease of prostate, unspecified] Onset: 11-18-2021 Episodic Other lower respiratory disease (1 source) Dyspnea; Translations: [Shortness of breath] 08-17-2023 Episodic Other nervous system disorders (1 source) Acute postoperative pain; Translations: [Other acute postprocedural pain] 07-30-2023 Episodic Other nutritional; endocrine; and metabolic disorders (1 source) Obesity, unspecified; Translations: [Obesity, unspecified] Onset: 07-17-2023 Chronic Other nutritional; endocrine; and metabolic disorders (6 sources) Body mass index 30+ - obesity; Translations: [Body mass index (BMI) 32.0-32.9, adult] Onset: 09-09-2023 09-09-2023 Chronic Other nutritional; endocrine; and metabolic disorders (2 sources) Body mass index (BMI) 34.0-34.9, adult; Translations: [Body mass index (BMI) 34.0-34.9, adult] Onset: 11-21-2024 Chronic Other nutritional; endocrine; and metabolic disorders (2 sources) Body mass index (BMI) 32.0-32.9, adult; Translations: [Body mass index (BMI) 32.0-32.9, adult] Onset: 09-09-2023 Chronic Other screening for suspected conditions (not mental disorders or infectious disease) (20 sources) Raised prostate specific antigen; Translations: [Elevated prostate specific antigen [PSA]] Onset: 09-14-2021 Resolved: 09-09-2023 Episodic Residual codes; unclassified (8 sources) Family history of cancer; Translations: [Family history of malignant neoplasm of prostate] Onset: 09-14-2021 Episodic Residual codes; unclassified (10 sources) Family history of prostate cancer 09-14-2021 Episodic Residual codes; unclassified (1 source) Family history of malignant neoplasm of prostate; Translations: [FAMILY HX MALIG NEOPLASM PROSTATE] Onset: 04-26-2022 Episodic Residual codes; unclassified (2 sources) Never smoked tobacco; Translations: [Other specified health status] Onset: 11-21-2024 11-21-2024 Episodic Residual codes; unclassified (2 sources) Other specified health status; Translations: [Other specified health status] Onset: 11-21-2024 Episodic Unclassified (10 sources) Patient encounter status 09-14-2021 Past or Other Problems Problem Classification Problem Date Documented Date Episodic/Chronic Acute myocardial infarction (15 sources) Acute myocardial infarction due to left coronary artery occlusion; Translations: [Acute myocardial infarction, unspecified] Onset: 07-17-2023 Resolved: 09-09-2023 07-19-2023 Chronic Complications of surgical procedures or medical care (10 sources) Atrial fibrillation; Translations: [Other postprocedural complications and disorders of the circulatory system, not elsewhere classified] Onset: 09-09-2023 03-14-2024 Episodic Other aftercare (6 sources) Long-term current use of drug therapy; Translations: [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) use of antithrombotics/antip latelets] Onset: 09-14-2021 Episodic Other aftercare (5 sources) Taking high risk medication; Translations: [Other intermediate (current) drug therapy] Onset: 09-09-2023 Resolved: 11-21-2024 09-09-2023 Episodic Other aftercare (5 sources) Drug therapy finding; Translations: [[facility] (current) use of anticoagulants] Onset: 09-09-2023 Resolved: 03-14-2024 09-09-2023 Episodic Pleurisy; pneumothorax; pulmonary collapse (6 sources) Pleural effusion; Translations: [Pleural effusion, not elsewhere classified] Onset: 09-09-2023 Resolved: 11-21-2024 08-25-2023 Episodic Unclassified (9 sources) Onset: 08-11-2023 Resolved: 03-14-2024 08-11-2023 Results Test Name Value Interpretation Reference Range Facility Ambulatory Visit Summaryon 0 11-28-2024 Ambulatory Visit Summary Ambulatory Visit Summary ROBERT SMILEY :1960 Visit Date:11/28/2024 Ambulatory Visit Instructions Your Diagnosis Elevated PSA BPH (benign prostatic hyperplasia) Family hx of prostate cancer Your Care Team Attending Physician - Cora Lee MD Primary Care Physician - GEOVANNY MERRILL CNP This Is Your Medications List Contact prescribing physician if questions or concerns aspirin (Aspirin Low Dose 81 mg oral tablet, chewable) metoprolol (metoprolol succinate 25 mg ER Tab) Procedures Performed Appendectomy, Bypass of carotid artery to carotid artery using vein graft, Cataract extraction, Placement of stent in cardiac conduit, Tonsillectomy. Discharge Vitals Temperature (Temporal Artery) 37 ???C Heart Rate (Peripheral) 75 Respiratory Rate 17 Blood Pressure 120/71 Height 176 cm Height 69 in Weight 105 kg Weight 231.485 lb BMI 33.9 What to do next Scheduled Follow-Up Appointments Tuesday 10:45 AM EDT With: Cora Lee MD Where: [facility] [address] [place] [address]- You Need to Schedule the Following Appointments Follow Up with Cora Lee MD, URL, URO When: Comments: 3 mos w/ PSA Where: [address] [place] [address]- [phone] Medications What How Much When Instructions Unchanged aspirin (Aspirin Low Dose 81 mg oral tablet, chewable) CHEW AND SWALLOW 1 (ONE) TABLET BY MOUTH DAILY; do not start before August 01, 2023 Contact prescribing physician if questions or concerns Unchanged metoprolol (metoprolol succinate 25 mg ER Tab) 1 Tablets By Mouth Every day Contact prescribing physician if questions or concerns Allergies No Known Medication Allergies Problems Ongoing - Any problem that you are currently receiving treatment for. Antiplatelet or antithrombotic long-term use BPH (benign prostatic hyperplasia) Elevated PSA Family hx of prostate cancer Patient Survey You may receive a survey via text or e-mail asking about your office visit. Please share your experience with us by completing your survey. We appreciate your feedback and thank you for choosing us for your care. Education Materials Prostate Cancer Screening Prostate cancer screening is [...] your prostate gland. When a rectal exam (more content not included)... Normal [facility] Urology Office/Clinic Noteon 11-28-2024 Urology Office/Clinic Note Urology Office/Clinic Note Chief Complaint 6 month f/u with PSA F&T HPI Staff Pt is here for 6 month f/u with PSA. Dx: elevated PSA, BPH an d family hx of prostate cancer (grandfather) PSA: 070/12/07 - 6.8 & 16.5% IPSS score today is 2. Nocturia x2. Denies any other urinary concerns at this time. History of Present Illness Tests reviewed: reviewed UA, PSA I have reviewed the previous health record information and history for this patient from Dr. Lee. I have reviewed and verified the staff HPI to be accurate for this encounter. Review of Systems PHQ Score Initial [...] See HPI. Physical Exam Vitals & Measurements T: 37 ???C(Temporal Artery) HR: 75(Peripheral) RR: 17 BP: 120/71 HT: 176 cm HT: 69 in WT: 231.485 lb WT: 105 kg BMI: 33.9 General Appearance: alert, no distress, well nourished, well developed male. Assessment/Plan 64 yo male with hx of elevated PSA here for follow up LYNN 4 (0) - not sexually active, not interested in [...] PSAD 0.10 05/25/24 - 6.5 & 17.8% 11/19/24 - 6.8 & 16.5% Select MDX 09/14/21 - 48% Likelihood of prostate cancer upon bx and 21% likelihood of detecting [place] score >7 cancer. MRI of prostate 12/07/21 - No suspicious lesion. Prior prostatitis. BPH. Volume 54 mL. EDMAR 10/27/22 - benign Unable to have prostate MRI due to temporary pacemaker placed last July where a lead was left behind. ~Elected to monitor PSA vs proceed with bx 06/2024 PCPT Risk Ca% chance of being dx w/ high grade cancer, 25% chance of low grade PSA has increased slightly from prior. May be related to subclinical prostatitis vs malignancy. Discussed management options including close PSA monitoring vs TRUS/bx. R/Bs of options discussed. Pt elects to cont PSA monitoring, understanding risk of progression of missed malignancy. -F/u in 3 mos w/ PSA FT -If level continues to rise, pt understands prostate biopsy will be next step 2. BPH (benign prostatic hyperplasia) (N40.0: Benign prostatic hyperplasia without lower urinary tract symptoms) UA neg. IPSS 2 (0). Not taking any BPH meds. Not voicing any urinary habit complaints. Denies any infections. Shares he has a high fluid intake. Hx of UTIs x 2, discussed underlying bladder disorder despite minimal LUTS. -If pt has any more infections, will consider cysto 3. Family hx of prostate cancer (Z80.42: Family history of malignant neoplasm of prostate) Grandfather diagnosed at age 80. [1] Follow-up With When Contact Information Jesus ROD, Cora Gupta, URL, URO [address], [place] [address] [phone] Additional Instructions: 3 mos w/ PSA Patient Education Prostate Cancer Screening I, Janki Sarah, personally scribed for Dr. Lee on 11/28/2024 11:33:44. . Documentation recorded by the scribe, Janki Sarah, accurately reflects the services(s) I performed and decisions made by me. Authenticated by Dr. Lee on 11/28/2024 12:41:49. Problem List/Past Medical History Ongoing Antiplatelet or [...] in lifetime) Tobacco Use:. Never Smokeless Tobacco Use:. Household tobacco concerns: No. Yes, 11/28/2024 Family History Diabetes: Mother. Lung cancer: Father. Immunizations Vaccine Date Status pneumococcal 20-valent conjugate vaccine 03/28/2023 Recorded influenza virus vaccine, inactivated 03/28/2023 Recorded influenza virus vaccine, inactivated 04/01/2022 Recorded SARS-CoV-2 (COVID-19) mRNA-1273 (more content not included)... Normal [facility] Comment on above: Result Comment: Elec tronically Signed By: Jesus ROD, Cora Gupta\.br\Date and Time Signed: 11/28/24 12:41 EDT\.br\Electronically Co-Signed By: Janki Sarah\.br\Date and Time Co-Signed: 11/28/24 11:34 EDT Reminderson 11-19-2024 Reminders Reminders - From: Jacklyn Presley To: EU - Recalls Lue; Sent: 06/21/2024 15:38:13 EST Show up: 10/15/2024 15:37:00 EDT Subject: 6 Month PSA Due Date/Time: 11/28/2024 15:38:00 EDT Reminder/Recall Per KML, patient to have 6 month f/u with PSA. Patient prefers to have blood work done at [facility], orders will need to be sent prior to f/u appointment on 11/28/24. Patient stopped into [facility] office. Order was written and given to ptHILTON Felix [facility] TRANSTHORACIC ECHO (TTE) COM PLETEon 10-18-2024 TRANSTHORACIC ECHO (TTE) COMPLETE [address], [address] [place] [address] TRANSTHORACIC ECHOCARDIOGRAM REPORT Patient Name: ROBERT Armando Physician: [id number] Ramirez MD Study Date: 10/18/2024 Ordering Provider: [id number] RAMIREZ MRN/PID: [id number] Fellow: Nurse: Date of /Age: 5 1960 / 64 years Complaint Investigations Officer: Gayle Gottlieb RDCS, RVT Gender Assigned at Additional Staff: : Height: 172.72 cm Admit Date: Weight: 96.62 kg Admission Status: Outpatient BSA / BMI: 2.10 m2 / 32.39 Department Location: [facility] kg/[address] Blood Pressure: 114 /68 mmHg Study Type: TRANSTHORACIC ECHO (TTE) COMPLETE Diagnosis/ICD: Atherosclerotic heart disease of [place] coronary artery without angina pectoris-I25.10; Unspecified atrial fibrillation-I48.91 Indication: Hyperlipidemia, CABG-07/2023, Ischemic Cardiomyopathy, Asberger Syndrome CPT Codes: Echo Complete w Full Doppler-[id number] Study Detail: The following Echo studies were [...] AoV Mean P.2 mmHg (1.7-11.5mmHg) LVOT Max Gael: 0.81 m/s (<=1.1m/s) AoV VTI: 20.97 cm (18-25cm) LVOT VTI: 13.72 cm LVOT Diameter: 2.55 cm (1.8-2.4cm) AoV Area, VTI: 3.34 cm2 (2.5-5.5cm2) AoV Area,Vmax: 4.18 cm2 (2.5-4.5cm2) AoV Dimensionless Index: 0.65 RIGHT VENTRICLE: RV Basal 3.49 cm RV Mid 2.70 cm RV Major 6.5 cm RV s' 0.11 (more content not included)... [facility] Urology Office/Clinic Noteon 05-30-2024 Urology Office/Clinic Note Urology Office/Clinic Note Chief Complaint 2 yr [...] age 81. Follow-up With When Contact Information Cora Lee MD, URL, URO Additional Instructions: Pending MRI Patient Education Prostate Cancer Screening IBere, personally scribed for Dr. Lee on 05/30/2024 11:49:16. . Portions of this record may have been created with voice recognition artificial intelligence software, specifically [employer] and or [employer]. Substitutions may have occurred due to the inherent limitations of voice recognition and artificial intelligence software. Documentation recorded by the scribBere rodriguez, accurately reflects the services(s) I performed and decisions made by me. Authenticated by Dr. Lee on 05/30/2024 15:28:44. Problem List/Past Medical History Ongoing Antiplatelet or antith (more content not included)... Normal [facility] Comment on above: Result Comment: Elec tronically Signed By: Cora Lee MD\.br\Date and Time Signed: 05/30/24 15:29 EST\.br\Electronically Co-Signed By: Bere Hendrickson\.br\Date and Time Co-Signed: 05/30/24 11:49 EST ECG 12 Leadon 09-09-2023 Normal sinus rhythm with nonspecific inferior and inferolateral ST-T changes [facility] Work Phone: XR Chest 2 Viewson 4 Cardiomegaly and left pleural effusion. Streaky density in left lung base, which may be related to atelectasis or infiltrate. MACRO: None Signed by: Sarah Musa 08/26/2023 6:42 PM Dictation workstation: [id number] MMODAL Interpreted By: Sarah Musa, STUDY: XR CHEST 2 VIEWS; 08/25/2023 1:11 pm INDICATION: Signs/Symptoms:s/p cabgx4. COMPARISON: 07/31/2023 ACCESSION NUMBER(S): [id number] ORDERING CLINICIAN: SCAR PECK FINDINGS: Sternotomy wires and surgical clips are seen. The heart is enlarged. Blunting of the left costophrenic angle is noted, which most likely is related to a pleural effusion. No consolidation or pneumothorax is seen. Faint streaky density seen in the medial left lung base. MMODAL Sarah Musa MD - 08/26/2023 Interpreted By: Sarah Musa, STUDY: XR CHEST 2 VIEWS; 08/25/2023 1:11 pm INDICATION: Signs/Symptoms:s/p cabgx4. COMPARISON: 07/31/2023 ACCESSION NUMBER(S): [id number] ORDERING CLINICIAN: SCAR PECK FINDINGS: Sternotomy wires and surgical clips are seen. The heart is enlarged. Blunting of the left costophrenic angle is noted, which most likely is related to a pleural effusion. No consolidation or pneumothorax is seen. Faint streaky density seen in the medial left lung base. IMPRESSION: Cardiomegaly and left pleural effusion. Streaky density in left lung base, which may be related to atelectasis or infiltrate. MACRO: None Signed by: Sarah Musa 08/26/2023 6:42 PM Dictation workstation: [id number] [facility] Work Phone: XR Chest 2 ViewsOrdered By: Sarah Musa on 08-26-2023 [facility] Work Phone: XR Chest 2 Viewson Radiology Study observation (narrative) [facility] Work Phone: Basic metabolic 2000 panelon 07-31-2023 Anion gap [Moles/Vol] 13 mmol/L 10 - 20 mmol/L [facility] Calcium [Mass/Vol] 8.5 mg/dL Low 8.6 - 10. 3 mg/dL [facility] Chloride [Moles/Vol] 106 mmol/L 98 - 10 7 mmol/L [facility] CO2 [Moles/Vol] 22 mmol/L 21 - 32 mmol/L [facility] Creatinine [Mass/Vol] 1.12 mg/dL 0.50 - 1.30 mg/dL [facility] GFR/1.73 sq M.predicted among non-blacks MDRD (S/P/Bld) [Vol rate/Area] 75 mL/min/{1.73_m2} - PINF [facility] Glucose [Mass/Vol] 96 mg/dL 74 - 99 mg/dL [facility] Interpretation and review of laboratory results Abnormal [facility] Potassium [Moles/Vol] 4.0 mmol/L 3.5 - 5.3 mmol/L [facility] Sodium [Moles/Vol] 137 mmol/L 136 - 145 mmol/L [facility] Urea nitrogen [Mass/Vol] 23 mg/dL 6 - 23 mg/dL [facility] CBC panel Auto (Bld)on 07-30 Erythrocyte distribution width (RBC) [Ratio] 13.6 % 11.5 - 14.5 % [facility] Hematocrit (Bld) [Volume fraction] 30.9 % Low 41.0 - 52.0 % [facility] Hemoglobin (Bld) [Mass/Vol] 9.9 g/dL Low 13.5 - 17.5 g/dL [facility] Interpretation and review of laboratory results Abnormal [facility] MCH (RBC) [Entitic mass] 30.2 pg 26.0 - 34.0 pg [facility] MCHC (RBC) [Mass/Vol] 32.0 g/dL 32.0 - 36.0 g/dL [facility] MCV (RBC) [Entitic vol] 94 fL 80 - 100 fL [facility] Nucleated RBC/100 WBC (Bld) [Ratio] 0.0 % [facility] Platelets (Bld) [#/Vol] 239 10*3/uL [facility] RBC (Bld) [#/Vol] 3.28 10*6/uL Low [facility] WBC (Bld) [#/Vol] 8.2 10*3/uL [facility] ECG 12 Leadon 07-31-2023 Atrial Rate 82 BPM [facility] Work Phone: [phone] P [place] 14 degrees [facility] Work Phone: [phone] P Offset 198 ms [facility] Work Phone: [phone] P Onset 146 ms [facility] Work Phone: [phone] [place] Interval 142 ms [facility] Work Phone: [phone] Q Onset 217 ms [facility] Work Phone: [phone] QRS Count 14 beats [facility] Work Phone: [phone] QRS Duration 82 ms [facility] Work Phone: [phone] QT Interval 374 ms [facility] Work Phone: [phone] QTC Calculation(Bazett) 436 ms [facility] Work Phone: [phone] QTC Fredericia [address] [facility] Work Phone: [phone] R [place] 17 degrees [facility] Work Phone: [phone] T [place] 8 degrees [facility] Work Phone: [phone] T Offset 404 ms [facility] [facility] Work Phone: [phone] Ventricular Rate 82 BPM [facility] Work Phone: [phone] MUSE [facility] Work Phone: [phone] [facility] Work Phone: [phone] Atrial Rate 81 BPM [facility] Work Phone: [phone] P [place] 14 degrees [facility] Work Phone: [phone] P Offset 198 [facility] Work Phone: [phone] P Onset 144 ms [facility] Work Phone: [phone] [place] Interval 144 ms [facility] Work Phone: [phone] Q Onset 216 ms [facility] Work Phone: [phone] QRS Count 13 beats [facility] Work Phone: [phone] QRS Duration 88 ms [facility] Work Phone: [phone] QT Interval 352 ms [facility] Work Phone: [phone] QTC Calculation(Bazett) 408 ms [facility] Work Phone: [phone] QTC Fredericia 388 ms [facility] Work Phone: [phone] R [place] 7 degrees [facility] Work Phone: [phone] T [place] -30 degrees [facility] Work Phone: [phone] T Offset 392 ms [facility] Work Phone: [phone] Ventricular Rate 81 BPM [facility] Work Phone: [phone] MUSE [facility] Work Phone: [phone] [facility] Work Phone: [phone] Atrial Rate 77 BPM [facility] Work Phone: [phone] P [place] 3 degrees [facility] Work Phone: [phone] P Offset 193 ms [facility] Work Phone: [phone] P Onset 146 ms [facility] Work Phone: [phone] [place] Interval 142 ms [facility] Work Phone: [phone] Q Onset 217 ms [facility] Work Phone: [phone] QRS Count 13 beats [facility] Work Phone: [phone] QRS Duration 74 ms [facility] Work Phone: [phone] QT Interval 372 ms [facility] Work Phone: [phone] QTC Calculation(Bazett) 420 ms [facility] Work Phone: [phone] QTC Fredericia 404 ms [facility] Work Phone: [phone] R [place] 1 degrees [facility] Work Phone: [phone] T [place] -14 degrees [facility] Work Phone: [phone] T Offset 403 ms [facility] Work Phone: [phone] Ventricular Rate 77 BPM [facility] Work Phone: [phone] [facility] Work Phone: [phone] [facility] Work Phone: [phone] Atrial Rate 88 BPM [facility] Work Phone: [phone] P [place] 12 degrees [facility] Work Phone: [phone] P Offset 208 ms [facility] Work Phone: [phone] P Onset 155 ms [facility] Work Phone: [phone] [place] Interval 142 ms [facility] Work Phone: [phone] Q Onset 226 ms [facility] Work Phone: [phone] QRS Count 15 beats [facility] Work Phone: [phone] QRS Duration 70 ms [facility] Work Phone: [phone] QT Interval 334 ms [facility] Work Phone: [phone] QTC Calculation(Bazett) 404 ms [facility] Work Phone: [phone] QTC Fredericia 379 ms [facility] Work Phone: [phone] R [place] 4 degrees [facility] Work Phone: [phone] T [place] -16 degrees [facility] Work Phone: [phone] T Offset 393 ms [facility] Work Phone: [phone] Ventricular Rate 88 BPM [facility] Work Phone: [phone] [facility] Work Phone: [phone] [facility] Work Phone: [phone] Atrial Rate 77 BPM [facility] Work Phone: [phone] P [place] 49 degrees [facility] Work Phone: [phone] P Offset 187 ms [facility] Work Phone: [phone] P Onset 133 ms [facility] Work Phone: [phone] [place] Interval 168 ms [facility] Work Phone: [phone] Q Onset 217 ms [facility] Work Phone: [phone] QRS Count 12 beats [facility] Work Phone: [phone] QRS Duration 90 ms [facility] Work Phone: [phone] QT Interval 370 ms [facility] Work Phone: [phone] QTC Calculation(Bazett) 418 ms [facility] Work Phone: [phone] QTC Fredericia 402 ms [facility] Work Phone: [phone] R [place] 26 degrees [facility] Work Phone: [phone] T [place] -24 degrees [facility] Work Phone: [phone] T Offset 402 ms [facility] Work Phone: [phone] Ventricular Rate 77 BPM [facility] Work Phone: [phone] MUSE [facility] Work Phone: [phone] [facility] Work Phone: [phone] ECG 12 leadon 07-31-2023 Atrial Rate 82 BPM [facility] Work Phone: [phone] P [place] 2 degrees [facility] Work Phone: [phone] P Offset 193 ms [facility] Work Phone: [phone] P Onset 143 ms [facility] Work Phone: [phone] [place] Interval 142 ms [facility] Work Phone: [phone] Q Onset 214 ms [facility] Work Phone: [phone] QRS Count 14 beats [facility] Work Phone: [phone] QRS Duration 80 ms [facility] Work Phone: [phone] QT Interval 390 ms [facility] Work Phone: [phone] QTC Calculation(Bazett) 455 ms [facility] Work Phone: [phone] QTC Fredericia 432 ms [facility] Work Phone: [phone] R [place] 12 degrees [facility] Work Phone: [phone] T [place] 6 degrees [facility] Work Phone: [phone] T Offset 409 ms [facility] Work Phone: [phone] Ventricular Rate 82 BPM [facility] Work Phone: [phone] MUSE [facility] Work Phone: [phone] [facility] Work Phone: [phone] Atrial Rate 73 BPM [facility] Work Phone: [phone] P [place] 8 degrees [facility] Work Phone: [phone] P Offset 191 ms [facility] Work Phone: [phone] P Onset 140 ms [facility] Work Phone: [phone] [place] Interval 150 ms [facility] Work Phone: [phone] Q Onset 215 ms [facility] Work Phone: [phone] QRS Count 12 beats [facility] Work Phone: [phone] QRS Duration 88 ms [facility] Work Phone: [phone] QT Interval 418 ms [facility] Work Phone: [phone] QTC Calculation(Bazett) 460 ms [facility] Work Phone: [phone] QTC Fredericia 446 ms [facility] Work Phone: [phone] R [place] 9 degrees [facility] Work Phone: [phone] T [place] -11 degrees [facility] Work Phone: [phone] T Offset 424 ms [facility] Work Phone: [phone] Ventricular Rate 73 BPM [facility] Work Phone: [phone] MUSE [facility] Work Phone: [phone] [facility] Work Phone: [phone] Atrial Rate 78 BPM [facility] Work Phone: [phone] P [place] 13 degrees [facility] Work Phone: [phone] P Offset 194 ms [facility] Work Phone: [phone] P Onset 143 ms [facility] Work Phone: [phone] [place] Interval 144 ms [facility] Work Phone: [phone] Q Onset 215 ms [facility] Work Phone: [phone] QRS Count 13 beats [facility] Work Phone: [phone] QRS Duration 84 ms [facility] Work Phone: [phone] QT Interval 386 ms [facility] Work Phone: [phone] QTC Calculation(Bazett) 440 ms [facility] Work Phone: [phone] QTC Fredericia 421 ms [facility] Work Phone: [phone] R [place] 15 degrees [facility] Work Phone: [phone] T [place] -11 degrees [facility] Work Phone: [phone] T Offset 408 ms [facility] Work Phone: [phone] Ventricular Rate 78 BPM [facility] Work Phone: [phone] MUSE [facility] Work Phone: [phone] [facility] Work Phone: [phone] ECG 12-LEADon 07-31-2023 ECG 12-LEAD Ventricular Rate 82 Atrial Rate 82 P-R Interval 142 QRS Duration 80 Q-T Interval 390 QTC Calculation(Bazett) 455 P [place] 2 R [place] 12 T [place] 6 QRS Count 14 Q Onset 214 P Onset 143 P Offset 193 T Offset 409 QTC Fredericia 432 Diagnosis Normal sinus rhythm Inferior infarct (cited on or before 19-JUL-2023) Abnormal ECG When compared with ECG of 30-JUL-2023 06:41, (unconfirmed) No significant change was found Confirmed by Heraclio Benitez ([id number]) on 07/31/2023 2:03:31 PM Normal [facility] Electrocardiogram, 12-lead P RN ACS symptomson 07-31-2023 Atrial Rate 174 BPM [facility] Work Phone: Q Onset 220 ms [facility] Work Phone: QRS Count 22 beats [facility] Work Phone: QRS Duration 74 ms [facility] Work Phone: QT Interval 294 ms [facility] Work Phone: QTC Calculation(Bazett) 439 ms [facility] Work Phone: QTC Fredericia 384 ms [facility] Work Phone: R [place] 3 degrees [facility] Work Phone: T [place] -25 degrees [facility] Work Phone: T Offset 367 ms [facility] Work Phone: Ventricular Rate 134 BPM [facility] Work Phone: MUSE [facility] Work Phone: [facility] Work Phone: Glucose Test strip manual (B ld) [Mass/Vol]on 07-31-2023 Glucose [Mass/Vol] 100 mg/dL High 74 - 99 mg/dL [facility] Interpretation and review of laboratory results Abnormal [facility] Glucose [Mass/Vol] 87 mg/dL 74 - 99 mg/dL [facility] Interpretation and review of laboratory results Normal [facility] Hepatic function 2000 panelo n 07-31-2023 Albumin BCP dye [Mass/Vol] 3.3 g/dL Low 3.4 - 5.0 g/dL [facility] ALP [Catalytic activity/Vol] 54 U/L 33 - 136 U/L [facility] ALT With P-5'-P [Catalytic activity/Vol] 15 U/L 10 - 52 U/L [facility] AST With P-5'-P [Catalytic activity/Vol] 17 U/L 9 - 39 U/L [facility] Bilirubin [Mass/Vol] 0.7 mg/dL 0.0 - 1 .2 mg/dL [facility] Bilirubin.direct [Mass/Vol] 0.1 mg/dL 0.0 - 0.3 mg/dL [facility] Interpretation and review of laboratory results Abnormal [facility] Protein [Mass/Vol] 6.1 g/dL Low 6.4 - 8.2 g/dL [facility] [place] [facility]-2023 Magnesium [Mass/Vol] 2.25 mg/dL 1.60 - 2.40 mg/dL [facility] Magnesium [Mass/Vol]on 07-30 Interpretation and review of laboratory results Normal [facility] No Panel Informationon 07-30 [facility] XR Chest 2 Viewson 4 UH MMODAL UH MMODAL [facility] Work Phone: Radiology Study observation (narrative) [facility] Work Phone: XR Chest 2 ViewsOrdered By: Aleida Horvath on 07-31-2023 [facility] Work Phone: CBC panel Auto (Bld)on 07-29 Erythrocyte distribution width (RBC) [Ratio] 13.5 % 11.5 - 14.5 % [facility] Hematocrit (Bld) [Volume fraction] 29.4 % Low 41.0 - 52.0 % [facility] Hemoglobin (Bld) [Mass/Vol] 9.7 g/dL Low 13.5 - 17.5 g/dL [facility] Interpretation and review of laboratory results Abnormal [facility] MCH (RBC) [Entitic mass] 30.1 pg 26.0 - 34.0 pg [facility] MCHC (RBC) [Mass/Vol] 33.0 g/dL 32.0 - 36.0 g/dL [facility] MCV (RBC) [Entitic vol] 91 fL 80 - 100 fL [facility] Nucleated RBC/100 WBC (Bld) [Ratio] 0.0 % [facility] Platelets (Bld) [#/Vol] 236 10*3/uL [facility] RBC (Bld) [#/Vol] 3.22 10*6/uL Low [facility] WBC (Bld) [#/Vol] 8.1 10*3/uL [facility] ECG 12-LEADon 07-30-2023 ECG 12-LEAD Ventricular Rate 73 Atrial Rate 73 P-R Interval 150 QRS Duration 88 Q-T Interval 418 QTC Calculation(Bazett) 460 P [place] 8 R [place] 9 T [place] -11 QRS Count 12 Q Onset 215 P Onset 140 P Offset 191 T Offset 424 QTC Fredericia 446 Diagnosis Normal sinus rhythm Inferior infarct (cited on or before 19-JUL-2023) Abnormal ECG When compared with ECG of 29-JUL-2023 19:34, (unconfirmed) No significant change was found Confirmed by Heraclio Benitez ([id number]) on 07/31/2023 1:59:56 PM Normal [facility] Glucose Test strip manual (B ld) [Mass/Vol]on 07-30-2023 Glucose [Mass/Vol] 100 mg/dL High 74 - 99 mg/dL [facility] Interpretation and review of laboratory results Abnormal [facility] Glucose [Mass/Vol] 92 mg/dL 74 - 99 mg/dL [facility] Interpretation and review of laboratory results Normal [facility] Glucose [Mass/Vol] 79 mg/dL 74 - 99 mg/dL [facility] Interpretation and review of laboratory results Normal [facility] Magnesiumon 03-16-2024 Magnesium [Mass/Vol] 2.43 mg/dL High 1.60 - 2.40 mg/dL [facility] No Panel Informationon 07-29 Interpretation and review of laboratory results Abnormal [facility] Renal function 2000 panelon 07-30-2023 Albumin BCP dye [Mass/Vol] 3.3 g/dL Low 3.4 - 5.0 g/dL [facility] Anion gap [Moles/Vol] 12 mmol/L 10 - 20 mmol/L [facility] Calcium [Mass/Vol] 8.4 mg/dL Low 8.6 - 10. 3 mg/dL [facility] Chloride [Moles/Vol] 105 mmol/L 98 - 10 7 mmol/L [facility] CO2 [Moles/Vol] 24 mmol/L 21 - 32 mmol/L [facility] Creatinine [Mass/Vol] 1.06 mg/dL 0.50 - 1.30 mg/dL [facility] GFR/1.73 sq M.predicted among non-blacks MDRD (S/P/Bld) [Vol rate/Area] 80 mL/min/{1.73_m2} - PINF [facility] Glucose [Mass/Vol] 93 mg/dL 74 - 99 mg/dL [facility] Phosphate [Mass/Vol] 3.4 mg/dL 2.5 - 4 .9 mg/dL [facility] Potassium [Moles/Vol] 4.2 mmol/L 3.5 - 5.3 mmol/L [facility] Sodium [Moles/Vol] 137 mmol/L 136 - 145 mmol/L [facility] Urea nitrogen [Mass/Vol] 22 mg/dL 6 - 23 mg/dL [facility] XR Chest Single viewon 07-29 UH MMODAL UH MMODAL [facility] Work Phone: [facility] Work Phone: Radiology Study observation (narrative) [facility] Work Phone: CBC panel Auto (Bld)on 07-28 Erythrocyte distribution width (RBC) [Ratio] 13.6 % 11.5 - 14.5 % [facility] Hematocrit (Bld) [Volume fraction] 27.6 % Low 41.0 - 52.0 % [facility] Hemoglobin (Bld) [Mass/Vol] 9.1 g/dL Low 13.5 - 17.5 g/dL [facility] Interpretation and review of laboratory results Abnormal [facility] MCH (RBC) [Entitic mass] 29.9 pg 26.0 - 34.0 pg [facility] MCHC (RBC) [Mass/Vol] 33.0 g/dL 32.0 - 36.0 g/dL [facility] MCV (RBC) [Entitic vol] 91 fL 80 - 100 fL [facility] Nucleated RBC/100 WBC (Bld) [Ratio] 0.0 % [facility] Platelets (Bld) [#/Vol] 199 10*3/uL [facility] RBC (Bld) [#/Vol] 3.04 10*6/uL Low [facility] WBC (Bld) [#/Vol] 9.7 10*3/uL [facility] ECG 12-LEADon 07-29-2023 ECG 12-LEAD Ventricular Rate 78 Atrial Rate 78 P-R Interval 144 QRS Duration 84 Q-T Interval 386 QTC Calculation(Bazett) 440 P [place] 13 R [place] 15 T [place] -11 QRS Count 13 Q Onset 215 P Onset 143 P Offset 194 T Offset 408 QTC Fredericia 421 Diagnosis Normal sinus rhythm Inferior infarct (cited on or before 19-JUL-2023) Abnormal ECG When compared with ECG of 29-JUL-2023 07:12, (unconfirmed) No significant change was found Confirmed by Heraclio Benitez ([id number]) on 07/31/2023 1:58:05 PM Normal [facility] ECG 12-LEAD Ventricular Rate 82 Atrial Rate 82 P-R Interval 142 QRS Duration 82 Q-T Interval 374 QTC Calculation(Bazett) 436 P [place] 14 R [place] 17 T [place] 8 QRS Count 14 Q Onset 217 P Onset 146 P Offset 198 T Offset 404 QTC Fredericia 415 Diagnosis Normal sinus rhythm Cannot rule out Inferior infarct (cited on or before 19-JUL-2023) Abnormal ECG When compared with ECG of 28-JUL-2023 06:30, (unconfirmed) Premature supraventricular complexes are no longer Present Confirmed by Heraclio Benitez ([id number]) on 07/31/2023 1:51:32 PM Normal [facility] Glucose Test strip manual (B ld) [Mass/Vol]on 07-29-2023 Glucose [Mass/Vol] 108 mg/dL High 74 - 99 mg/dL [facility] Interpretation and review of laboratory results Abnormal [facility] Glucose [Mass/Vol] 94 mg/dL 74 - 99 mg/dL [facility] Interpretation and review of laboratory results Normal [facility] Glucose [Mass/Vol] 103 mg/dL High 74 - 99 mg/dL [facility] Interpretation and review of laboratory results Abnormal [facility] Glucose [Mass/Vol] 101 mg/dL High 74 - 99 mg/dL [facility] Interpretation and review of laboratory results Abnormal [facility] Magnesiumon 07-29-2023 Magnesium [Mass/Vol] 2.03 mg/dL 1.60 - 2.40 mg/dL [facility] Magnesium [Mass/Vol]on 07-28 Interpretation and review of laboratory results Normal [facility] No Panel Informationon 07-28 [facility] Renal function 2000 panelon 07-29-2023 Albumin BCP dye [Mass/Vol] 3.3 g/dL Low 3.4 - 5.0 g/dL [facility] Anion gap [Moles/Vol] 12 mmol/L 10 - 20 mmol/L [facility] Calcium [Mass/Vol] 8.2 mg/dL Low 8.6 - 10. 3 mg/dL [facility] Chloride [Moles/Vol] 104 mmol/L 98 - 10 7 mmol/L [facility] CO2 [Moles/Vol] 25 mmol/L 21 - 32 mmol/L [facility] Creatinine [Mass/Vol] 1.14 mg/dL 0.50 - 1.30 mg/dL [facility] GFR/1.73 sq M.predicted among non-blacks MDRD (S/P/Bld) [Vol rate/Area] 73 mL/min/{1.73_m2} - PINF [facility] Glucose [Mass/Vol] 101 mg/dL High 74 - 99 mg/dL [facility] Interpretation and review of laboratory results Abnormal [facility] Phosphate [Mass/Vol] 2.8 mg/dL 2.5 - 4 .9 mg/dL [facility] Potassium [Moles/Vol] 4.1 mmol/L 3.5 - 5.3 mmol/L [facility] Sodium [Moles/Vol] 137 mmol/L 136 - 145 mmol/L [facility] Urea nitrogen [Mass/Vol] 22 mg/dL 6 - 23 mg/dL [facility] XR Chest Single viewon 07-28 UH MMODAL UH MMODAL [facility] Work Phone: [facility] Work Phone: Radiology Study observation (narrative) [facility] Work Phone: CBC panel Auto (Bld)on 07-27 Erythrocyte distribution width (RBC) [Ratio] 13.6 % 11.5 - 14.5 % [facility] Hematocrit (Bld) [Volume fraction] 27.2 % Low 41.0 - 52.0 % [facility] Hemoglobin (Bld) [Mass/Vol] 8.9 g/dL Low 13.5 - 17.5 g/dL [facility] Interpretation and review of laboratory results Abnormal [facility] MCH (RBC) [Entitic mass] 30.0 pg 26.0 - 34.0 pg [facility] MCHC (RBC) [Mass/Vol] 32.7 g/dL 32.0 - 36.0 g/dL [facility] MCV (RBC) [Entitic vol] 92 fL 80 - 100 fL [facility] Nucleated RBC/100 WBC (Bld) [Ratio] 0.0 % [facility] Platelets (Bld) [#/Vol] 125 10*3/uL Low [facility] RBC (Bld) [#/Vol] 2.97 10*6/uL Low [facility] WBC (Bld) [#/Vol] 8.7 10*3/uL [facility] Calcium, Ionizedon Calcium.ionized (Bld) [Moles/Vol] 1.13 mmol/L 1.1 - 1.33 mmol/L [facility] Calcium.ionized (Bld) [Moles /Vol]on 07-28-2023 Interpretation and review of laboratory results Normal [facility] ECG 12-LEADon 07-28-2023 ECG 12-LEAD Ventricular Rate 81 Atrial Rate 81 P-R Interval 144 QRS Duration 88 Q-T Interval 352 QTC Calculation(Bazett) 408 P [place] 14 R [place] 7 T [place] -30 QRS Count 13 Q Onset 216 P Onset 144 P Offset 198 T Offset 392 QTC Fredericia 388 Diagnosis Sinus rhythm with Premature supraventricular complexes Inferior infarct (cited on or before 19-JUL-2023) Abnormal ECG When compared with ECG of 27-JUL-2023 06:54, (unconfirmed) Premature supraventricular complexes are now Present Confirmed by Heraclio Benitez ([id number]) on 07/31/2023 12:42:54 PM Normal [facility] Glucose Test strip manual (B ld) [Mass/Vol]on 07-28-2023 Glucose [Mass/Vol] 115 mg/dL High 74 - 99 mg/dL [facility] Interpretation and review of laboratory results Abnormal [facility] Glucose [Mass/Vol] 142 mg/dL High 74 - 99 mg/dL [facility] Interpretation and review of laboratory results Abnormal [facility] Glucose [Mass/Vol] 134 mg/dL High 74 - 99 mg/dL [facility] Interpretation and review of laboratory results Abnormal [facility] Glucose [Mass/Vol] 110 mg/dL High 74 - 99 mg/dL [facility] Interpretation and review of laboratory results Abnormal [facility] Glucose [Mass/Vol] 114 mg/dL High 74 - 99 mg/dL [facility] Interpretation and review of laboratory results Abnormal [facility] Magnesiumon 07-28-2023 Magnesium [Mass/Vol] 2.23 mg/dL 1.60 - 2.40 mg/dL [facility] Magnesium [Mass/Vol]on 07-27 Interpretation and review of laboratory results Normal [facility] No Panel Informationon 07-27 [facility] Blood Expiration Date August 15, 2023 23: 59 EDT [facility] Dispense Status RE [facility] PRODUCT BLOOD TYPE [id number] [facility] PRODUCT CODE [id number] [facility] Unit ABO A [facility] Unit RH Positive [facility] UNIT VOLUME 350 [facility] XM INTEP COMP [facility] Prepare RBC: 4 Unitson 07-27 Blood Expiration Date August 12, 2023 23: 59 EDT [facility] Blood Expiration Date August 14, 2023 23: 59 EDT [facility] PRODUCT CODE [id number] [facility] Unit Number [id number] [facility] Unit Number [id number] [facility] Unit Number [id number] [facility] Unit Number [id number] [facility] UNIT VOLUME 285 [facility] Renal function 2000 panelon 07-28-2023 Albumin BCP dye [Mass/Vol] 3.4 g/dL 3.4 - 5.0 g/dL [facility] Anion gap [Moles/Vol] 11 mmol/L 10 - 20 mmol/L [facility] Calcium [Mass/Vol] 8.2 mg/dL Low 8.6 - 10. 3 mg/dL [facility] Chloride [Moles/Vol] 103 mmol/L 98 - 10 7 mmol/L [facility] CO2 [Moles/Vol] 25 mmol/L 21 - 32 mmol/L [facility] Creatinine [Mass/Vol] 1.14 mg/dL 0.50 - 1.30 mg/dL [facility] GFR/1.73 sq M.predicted among non-blacks MDRD (S/P/Bld) [Vol rate/Area] 73 mL/min/{1.73_m2} - PINF [facility] Glucose [Mass/Vol] 112 mg/dL High 74 - 99 [facility] Interpretation and review of laboratory results Abnormal [facility] Phosphate [Mass/Vol] 2.7 mg/dL 2.5 - 4 .9 mg/dL [facility] Potassium [Moles/Vol] 3.8 mmol/L 3.5 - 5.3 mmol/L [facility] Sodium [Moles/Vol] 135 mmol/L Low 136 - 145 mmol/L [facility] Urea nitrogen [Mass/Vol] 20 mg/dL 6 - 23 mg/dL [facility] XR Chest Single viewon 07-27 UH MMODAL UH MMODAL [facility] Work Phone: Radiology Study observation (narrative) [facility] Work Phone: XR Chest Single viewOrdered By: Hiren Vizcarra on 07-28-2023 [facility] Work Phone: CBC panel Auto (Bld)Ordered By: Margarita Adames on 07-27-2023 Erythrocyte distribution width (RBC) [Ratio] 13.9 % 11.5 - 14.5 % [facility] Hematocrit (Bld) [Volume fraction] 28.6 % Low 41.0 - 52.0 % [facility] Hemoglobin (Bld) [Mass/Vol] 9.4 g/dL Low 13.5 - 17.5 g/dL [facility] Interpretation and review of laboratory results Abnormal [facility] MCH (RBC) [Entitic mass] 30.8 pg 26.0 - 34.0 pg [facility] MCHC (RBC) [Mass/Vol] 32.9 g/dL 32.0 - 36.0 g/dL [facility] MCV (RBC) [Entitic vol] 94 fL 80 - 100 fL [facility] Platelet mean volume (Bld) [Entitic vol] 11.6 fL High 7.5 - 11.5 fL [facility] Platelets (Bld) [#/Vol] 86 10*3/uL Low [facility] RBC (Bld) [#/Vol] 3.05 10*6/uL Low [facility] WBC (Bld) [#/Vol] 8.3 10*3/uL [facility] Calcium, Ionizedon 4 Calcium.ionized (Bld) [Moles/Vol] 1.15 mmol/L 1.1 - 1.33 mmol/L [facility] Calcium.ionized (Bld) [Moles /Vol]on 07-27-2023 Interpretation and review of laboratory results Normal [facility] ECG 12-LEADon 07-27-2023 ECG 12-LEAD Ventricular Rate 77 Atrial Rate 77 P-R Interval 142 QRS Duration 74 Q-T Interval 372 QTC Calculation(Bazett) 420 P [place] 3 R [place] 1 T [place] -14 QRS Count 13 Q Onset 217 P Onset 146 P Offset 193 T Offset 403 QTC Fredericia 404 Diagnosis Normal sinus rhythm Inferior infarct (cited on or before 19-JUL-2023) Anterior injury pattern ACUTE MA / STEMI Abnormal ECG When compared with ECG of 26-JUL-2023 23:45, (unconfirmed) Sinus rhythm has replaced Atrial fibrillation Confirmed by Heraclio Benitez ([id number]) on 07/31/2023 12:30:19 PM Normal [facility] ECG 12-LEAD Ventricular Rate 134 Atrial Rate 174 QRS Duration 74 Q-T Interval 294 QTC Calculation(Bazett) 439 R [place] 3 T [place] -25 QRS Count 22 Q Onset 220 T Offset 367 QTC Fredericia 384 Diagnosis Atrial fibrillation with rapid ventricular response Inferior infarct (cited on or before 19-JUL-2023) Abnormal ECG When compared with ECG of 26-JUL-2023 06:43, (unconfirmed) Atrial fibrillation has replaced Sinus rhythm Confirmed by Heraclio Benitez ([id number]) on 07/31/2023 12:10:06 PM Normal [facility] Glucose Test strip manual (B ld) [Mass/Vol]on 07-27-2023 Glucose [Mass/Vol] 155 mg/dL High 74 - 99 mg/dL [facility] Interpretation and review of laboratory results Abnormal [facility] Glucose [Mass/Vol] 125 mg/dL High 74 - 99 mg/dL [facility] Interpretation and review of laboratory results Abnormal [facility] Glucose [Mass/Vol] 138 mg/dL High 74 - 99 mg/dL [facility] Interpretation and review of laboratory results Abnormal [facility] Glucose [Mass/Vol] 135 mg/dL High 74 - 99 mg/dL [facility] Interpretation and review of laboratory results Abnormal [facility] MagnesiumOrdered By: Linda zamudio on 07-27-2023 Magnesium [Mass/Vol] 2.24 mg/dL 1.60 - 2.40 mg/dL [facility] Magnesium [Mass/Vol]Ordered By: Linda Orourke on 07-27-2023 Interpretation and review of laboratory results Normal [facility] Renal function 2000 panelon 07-27-2023 Albumin BCP dye [Mass/Vol] 3.6 g/dL 3.4 - 5.0 g/dL [facility] Work Phone: Anion gap [Moles/Vol] 11 mmol/L 10 - 20 mmol/L [facility] Work Phone: Calcium [Mass/Vol] 8.3 mg/dL Low 8.6 - 10. 3 mg/dL [facility] Work Phone: Chloride [Moles/Vol] 104 mmol/L 98 - 10 7 mmol/L [facility] Work Phone: CO2 [Moles/Vol] 25 mmol/L 21 - 32 mmol/L [facility] Work Phone: Creatinine [Mass/Vol] 0.98 mg/dL 0.50 - 1.30 mg/dL [facility] Work Phone: GFR/1.73 sq M.predicted among non-blacks MDRD (S/P/Bld) [Vol rate/Area] 88 mL/min/{1.73_m2} - PINF [facility] Work Phone: Glucose [Mass/Vol] 116 mg/dL High 74 - 99 mg/dL [facility] Work Phone: Interpretation and review of laboratory results Abnormal [facility] Work Phone: Phosphate [Mass/Vol] 2.6 mg/dL 2.5 - 4 .9 mg/dL [facility] Work Phone: Potassium [Moles/Vol] 4.2 mmol/L 3.5 - 5.3 mmol/L [facility] Work Phone: Sodium [Moles/Vol] 136 mmol/L 136 - 145 mmol/L [facility] Work Phone: Urea nitrogen [Mass/Vol] 12 mg/dL 6 - 23 mg/dL [facility] Work Phone: [facility] Work Phone: XR Chest Single viewon 07-26 UH MMODAL UH MMODAL [facility] Work Phone: [facility] Work Phone: Radiology Study observation (narrative) [facility] Work Phone: CBC W Auto Differential pane l (Bld)on 07-26-2023 Basophils (Bld) [#/Vol] 0.03 10*3/uL [facility] Basophils/100 WBC (Bld) 0.3 % 0.0 - 2.0 % [facility] Eosinophils (Bld) [#/Vol] 0.01 10*3/uL [facility] Eosinophils/100 WBC (Bld) 0.1 % 0.0 - 6.0 % [facility] Erythrocyte distribution width (RBC) [Ratio] 13.8 % 11.5 - 14.5 % [facility] Hematocrit (Bld) [Volume fraction] 29.7 % Low 41.0 - 52.0 % [facility] Hemoglobin (Bld) [Mass/Vol] 9.9 g/dL Low 13.5 - 17.5 g/dL [facility] Immature granulocytes (Bld) [#/Vol] 0.07 10*3/uL [facility] Immature granulocytes/100 WBC (Bld) 0.6 % 0.0 - 0.9 % [facility] Interpretation and review of laboratory results Abnormal [facility] Lymphocytes (Bld) [#/Vol] 1.75 10*3/uL [facility] Lymphocytes/100 WBC (Bld) 15.4 % 13.0 - 44.0 % [facility] MCH (RBC) [Entitic mass] 30.4 pg 26.0 - 34.0 pg [facility] MCHC (RBC) [Mass/Vol] 33.3 g/dL 32.0 - 36.0 g/dL [facility] MCV (RBC) [Entitic vol] 91 fL 80 - 100 fL [facility] Monocytes (Bld) [#/Vol] 1.22 10*3/uL High [facility] Monocytes/100 WBC (Bld) 10.7 % 2.0 - 10.0 % [facility] Neutrophils (Bld) [#/Vol] 8.27 10*3/uL High [facility] Neutrophils/100 WBC (Bld) 72.9 % 40.0 - 80.0 % [facility] Nucleated RBC/100 WBC (Bld) [Ratio] 0.0 % [facility] Platelets (Bld) [#/Vol] 160 10*3/uL [facility] RBC (Bld) [#/Vol] 3.26 10*6/uL Low [facility] WBC (Bld) [#/Vol] 11.4 10*3/uL [facility] Calcium, ionizedon Calcium.ionized (Bld) [Moles/Vol] 1.08 mmol/L Low 1.1 - 1.33 mmol/L [facility] Calcium.ionized (Bld) [Moles /Vol]on 07-26-2023 Interpretation and review of laboratory results Abnormal [facility] ECG 12-LEADon 07-26-2023 ECG 12-LEAD Ventricular Rate 88 Atrial Rate 88 P-R Interval 142 QRS Duration 70 Q-T Interval 334 QTC Calculation(Bazett) 404 P [place] 12 R [place] 4 T [place] -16 QRS Count 15 Q Onset 226 P Onset 155 P Offset 208 T Offset 393 QTC Fredericia 379 Diagnosis Normal sinus rhythm Low voltage QRS Inferior infarct (cited on or before 19-JUL-2023) Abnormal ECG When compared with ECG of 25-JUL-2023 15:06, (unconfirmed) No significant change was found Confirmed by Heraclio Benitez ([id number]) on 07/31/2023 11:38:49 AM Normal [facility] Gas and Carbon monoxide and Electrolytes panel (BldA)on 07-26-2023 Anion gap 4 (BldA) [Moles/Vol] 8 Low [facility] Base excess Calc (Bld) [Moles/Vol] -0.3000 mmol/L -2.0 - 3.0 mmol/L [facility] Calcium.ionized (BldA) [Moles/Vol] 1.34 mmol/L High 1.10 - 1.33 mmol/L [facility] Chloride (BldA) [Moles/Vol] 106 mmol/L 98 - 107 mmol/L [facility] CO2 (Bld) [Partial pressure] 45 mm[Hg] High [facility] Glucose [Mass/Vol] 108 mg/dL High 74 - 99 mg/dL [facility] HCO3 (Bld) [Moles/Vol] 25.4 mmol/L 22.0 - 26.0 mmol/L [facility] Hematocrit Est (Bld) [Volume fraction] 32.0 % Low 41.0 - 52.0 % [facility] Hemoglobin (Bld) [Mass/Vol] 10.8 g/dL Low 13.5 - 17.5 g/dL [facility] Interpretation and review of laboratory results Abnormal [facility] Lactate (BldA) [Moles/Vol] 2.0 mmol/L 0.4 - 2.0 mmol/L [facility] Oxygen (Bld) [Partial pressure] 345 mm[Hg] High [facility] Oxyhemoglobin (BldA) [Mass fraction] 97.5 % 94.0 - 98.0 % [facility] pH (Bld) 7.36 [pH] Low 7.38 - 7.42 pH [facility] Potassium (BldA) [Moles/Vol] 4.3 mmol/L 3.5 - 5.3 mmol/L [facility] Sodium (BldA) [Moles/Vol] 135 mmol/L Low 136 - 145 mmol/L [facility] Anion gap 4 (BldA) [Moles/Vol] 10 [facility] Base excess Calc (Bld) [Moles/Vol] -3.8000 mmol/L Low -2.0 - 3.0 mmol/L [facility] Base excess Calc (Bld) [Moles/Vol] 2.3 mmol/L -2.0 - 3.0 mmol/L [facility] Calcium.ionized (BldA) [Moles/Vol] 1.15 mmol/L 1.10 - 1.33 mmol/L [facility] Calcium.ionized (BldA) [Moles/Vol] 1.05 mmol/L Low 1.10 - 1.33 mmol/L [facility] Chloride (BldA) [Moles/Vol] 102 mmol/L 98 - 107 mmol/L [facility] Chloride (BldA) [Moles/Vol] 103 mmol/L 98 - 107 mmol/L [facility] CO2 (Bld) [Partial pressure] 48 mm[Hg] High [facility] CO2 (Bld) [Partial pressure] 39 mm[Hg] [facility] Glucose [Mass/Vol] 251 mg/dL High 74 - 99 mg/dL [facility] Glucose [Mass/Vol] 128 mg/dL High 74 - 99 mg/dL [facility] HCO3 (Bld) [Moles/Vol] 23.1 mmol/L 22.0 - 26.0 mmol/L [facility] HCO3 (Bld) [Moles/Vol] 26.5 mmol/L High 22.0 - 26.0 mmol/L [facility] Hematocrit Est (Bld) [Volume fraction] 40.0 % Low 41.0 - 52.0 % [facility] Hematocrit Est (Bld) [Volume fraction] [facility] Hemoglobin (Bld) [Mass/Vol] 13.3 g/dL Low 13.5 - 17.5 g/dL [facility] Hemoglobin (Bld) [Mass/Vol] [facility] Lactate (BldA) [Moles/Vol] 1.2 mmol/L 0.4 - 2.0 mmol/L [facility] Lactate (BldA) [Moles/Vol] 1.8 mmol/L 0.4 - 2.0 mmol/L [facility] Oxygen (Bld) [Partial pressure] 384 mm[Hg] High [facility] Oxygen (Bld) [Partial pressure] 395 mm[Hg] High [facility] Oxyhemoglobin (BldA) [Mass fraction] 97.6 % 94.0 - 98.0 % [facility] Oxyhemoglobin (BldA) [Mass fraction] [facility] pH (Bld) 7.29 [pH] Low 7.38 - 7.42 pH [facility] pH (Bld) 7.44 [pH] High 7.38 - 7.42 pH [facility] Potassium (BldA) [Moles/Vol] 4.8 mmol/L 3.5 - 5.3 mmol/L [facility] Sodium (BldA) [Moles/Vol] 129 mmol/L Low 136 - 145 mmol/L [facility] Anion gap 4 (BldA) [Moles/Vol] 7 Low [facility] Base excess Calc (Bld) [Moles/Vol] -0.2000 mmol/L -2.0 - 3.0 mmol/L [facility] Calcium.ionized (BldA) [Moles/Vol] 1.15 mmol/L 1.10 - 1.33 mmol/L [facility] Chloride (BldA) [Moles/Vol] 107 mmol/L 98 - 107 mmol/L [facility] CO2 (Bld) [Partial pressure] 41 mm[Hg] [facility] Glucose [Mass/Vol] 116 mg/dL High 74 - 99 mg/dL [facility] HCO3 (Bld) [Moles/Vol] 24.8 mmol/L 22.0 - 26.0 mmol/L [facility] Hematocrit Est (Bld) [Volume fraction] 43.0 % 41.0 - 52.0 % [facility] Hemoglobin (Bld) [Mass/Vol] 14.4 g/dL 13.5 - 17.5 g/dL [facility] Inhaled oxygen concentration 100 % [facility] Interpretation and review of laboratory results Abnormal [facility] Lactate (BldA) [Moles/Vol] 1.1 mmol/L 0.4 - 2.0 mmol/L [facility] Oxygen (Bld) [Partial pressure] 477 mm[Hg] High [facility] Oxyhemoglobin (BldA) [Mass fraction] 97.7 % 94.0 - 98.0 % [facility] pH (Bld) 7.39 [pH] 7.38 - 7.42 pH [facility] Potassium (BldA) [Moles/Vol] 3.9 mmol/L 3.5 - 5.3 mmol/L [facility] Sodium (BldA) [Moles/Vol] 135 mmol/L Low 136 - 145 mmol/L [facility] Glucose Test strip manual (B ld) [Mass/Vol]on 07-26-2023 Glucose [Mass/Vol] 167 mg/dL High 74 - 99 mg/dL [facility] Interpretation and review of laboratory results Abnormal [facility] Glucose [Mass/Vol] 116 mg/dL High 74 - 99 mg/dL [facility] Interpretation and review of laboratory results Abnormal [facility] Glucose [Mass/Vol] 111 mg/dL High 74 - 99 mg/dL [facility] Interpretation and review of laboratory results Abnormal [facility] Glucose [Mass/Vol] 143 mg/dL High 74 - 99 mg/dL [facility] Interpretation and review of laboratory results Abnormal [facility] Glucose [Mass/Vol] 118 mg/dL High 74 - 99 mg/dL [facility] Interpretation and review of laboratory results Abnormal [facility] Glucose [Mass/Vol] 123 mg/dL High 74 - 99 mg/dL [facility] Interpretation and review of laboratory results Abnormal [facility] Magnesiumon 07-26-2023 Magnesium [Mass/Vol] 2.10 mg/dL 1.60 - 2.40 mg/dL [facility] Magnesium [Mass/Vol]on 07-25 Interpretation and review of laboratory results Normal [facility] No Panel Informationon 07-25 [facility] Renal function 2000 panelon 07-26-2023 Albumin BCP dye [Mass/Vol] 3.6 g/dL 3.4 - 5.0 g/dL [facility] Anion gap [Moles/Vol] 11 mmol/L 10 - 20 mmol/L [facility] Calcium [Mass/Vol] 8.1 mg/dL Low 8.6 - 10. 3 mg/dL [facility] Chloride [Moles/Vol] 105 mmol/L 98 - 10 7 mmol/L [facility] CO2 [Moles/Vol] 26 mmol/L 21 - 32 mmol/L [facility] Creatinine [Mass/Vol] 1.13 mg/dL 0.50 - 1.30 mg/dL [facility] GFR/1.73 sq M.predicted among non-blacks MDRD (S/P/Bld) [Vol rate/Area] 74 mL/min/{1.73_m2} - PINF [facility] Glucose [Mass/Vol] 117 mg/dL High 74 - 99 mg/dL [facility] Interpretation and review of laboratory results Abnormal [facility] Phosphate [Mass/Vol] 3.0 mg/dL 2.5 - 4 .9 mg/dL [facility] Potassium [Moles/Vol] 4.7 mmol/L 3.5 - 5.3 mmol/L [facility] Sodium [Moles/Vol] 137 mmol/L 136 - 145 mmol/L [facility] Urea nitrogen [Mass/Vol] 14 mg/dL 6 - 23 mg/dL [facility] XR Chest Single viewon 07-25 UH MMODAL UH MMODAL [facility] Work Phone: Radiology Study observation (narrative) [facility] Work Phone: UH MMODAL UH MMODAL [facility] Work Phone: [facility] Work Phone: Radiology Study observation (narrative) [facility] Work Phone: XR Chest Single viewOrdered By: Isaiah Cross on 07-26-2023 [facility] Work Phone: ACT Coag (Bld)on 07-25-2023 Interpretation and review of laboratory results Normal [facility] Interpretation and review of laboratory results Abnormal [facility] Interpretation and review of laboratory results Abnormal [facility] Interpretation and review of laboratory results Normal [facility] Anesthesia Intraoperative Tr ansesophageal Echocardiogramon 07-25-2023 LV A4C EF 65.6 [facility] Work Phone: LV biplane EF 68 % [facility] Work Phone: MV E/A ratio 1.09 [facility] Work Phone: RVSP 37.8 mmHg [facility] Work Phone: SYNGO [facility] Work Phone: [facility] Work Phone: CBC W Auto Differential pane l (Bld)on 07-25-2023 Basophils (Bld) [#/Vol] 0.04 10*3/uL [facility] Basophils/100 WBC (Bld) 0.4 % 0.0 - 2.0 % [facility] Eosinophils (Bld) [#/Vol] 0.13 10*3/uL [facility] Eosinophils/100 WBC (Bld) 1.4 % 0.0 - 6.0 % [facility] Erythrocyte distribution width (RBC) [Ratio] 13.3 % 11.5 - 14.5 % [facility] Hematocrit (Bld) [Volume fraction] 44.3 % 41.0 - 52.0 % [facility] Hemoglobin (Bld) [Mass/Vol] 15.1 g/dL 13.5 - 17.5 g/dL [facility] Immature granulocytes (Bld) [#/Vol] 0.10 10*3/uL [facility] Immature granulocytes/100 WBC (Bld) 1.1 % High 0.0 - 0.9 % [facility] Interpretation and review of laboratory results Abnormal [facility] Lymphocytes (Bld) [#/Vol] 3.35 10*3/uL [facility] Lymphocytes/100 WBC (Bld) 35.2 % 13.0 - 44.0 % [facility] MCH (RBC) [Entitic mass] 30.3 pg 26.0 - 34.0 pg [facility] MCHC (RBC) [Mass/Vol] 34.1 g/dL 32.0 - 36.0 g/dL [facility] MCV (RBC) [Entitic vol] 89 fL 80 - 100 fL [facility] Monocytes (Bld) [#/Vol] 0.89 10*3/uL [facility] Monocytes/100 WBC (Bld) 9.3 % 2.0 - 10.0 % [facility] Neutrophils (Bld) [#/Vol] 5.01 10*3/uL [facility] Neutrophils/100 WBC (Bld) 52.6 % 40.0 - 80.0 % [facility] Nucleated RBC/100 WBC (Bld) [Ratio] 0.0 % [facility] Platelets (Bld) [#/Vol] 228 10*3/uL [facility] RBC (Bld) [#/Vol] 4.99 10*6/uL [facility] WBC (Bld) [#/Vol] 9.5 10*3/uL [facility] CBC panel Auto (Bld)on 07-24 Erythrocyte distribution width (RBC) [Ratio] 13.3 % 11.5 - 14.5 % [facility] Hematocrit (Bld) [Volume fraction] 29.2 % Low 41.0 - 52.0 % [facility] Hemoglobin (Bld) [Mass/Vol] 10.0 g/dL Low 13.5 - 17.5 g/dL [facility] [facility] Interpretation and review of laboratory results Abnormal [facility] MCH (RBC) [Entitic mass] 30.9 pg 26.0 - 34.0 pg [facility] MCHC (RBC) [Mass/Vol] 34.2 g/dL 32.0 - 36.0 g/dL [facility] MCV (RBC) [Entitic vol] 90 fL 80 - 100 fL [facility] Nucleated RBC/100 WBC (Bld) [Ratio] 0.0 % [facility] Platelets (Bld) [#/Vol] 161 10*3/uL [facility] RBC (Bld) [#/Vol] 3.24 10*6/uL Low [facility] WBC (Bld) [#/Vol] 13.0 10*3/uL [facility] Erythrocyte distribution width (RBC) [Ratio] 13.2 % 11.5 - 14.5 % [facility] Hematocrit (Bld) [Volume fraction] 36.4 % Low 41.0 - 52.0 % [facility] Hemoglobin (Bld) [Mass/Vol] 12.4 g/dL Low 13.5 - 17.5 g/dL [facility] Interpretation and review of laboratory results Abnormal [facility] MCH (RBC) [Entitic mass] 30.4 pg 26.0 - 34.0 pg [facility] MCHC (RBC) [Mass/Vol] 34.1 g/dL 32.0 - 36.0 g/dL [facility] MCV (RBC) [Entitic vol] 89 fL 80 - 100 fL [facility] Nucleated RBC/100 WBC (Bld) [Ratio] 0.0 % [facility] Platelets (Bld) [#/Vol] 187 10*3/uL [facility] RBC (Bld) [#/Vol] 4.08 10*6/uL [facility] WBC (Bld) [#/Vol] 17.4 10*3/uL [facility] Calcium, Ionizedon 4 Calcium.ionized (Bld) [Moles/Vol] 1.11 mmol/L 1.1 - 1.33 mmol/L [facility] Calcium.ionized (Bld) [Moles/Vol] 1.18 mmol/L 1.1 - 1.33 mmol/L [facility] Calcium.ionized (Bld) [Moles /Vol]on 07-25-2023 Interpretation and review of laboratory results Normal [facility] Interpretation and review of laboratory results Normal [facility] Comprehensive metabolic 2000 panelon 07-25-2023 Albumin BCP dye [Mass/Vol] 3.9 g/dL 3.4 - 5.0 g/dL [facility] ALP [Catalytic activity/Vol] 70 U/L 33 - 136 U/L [facility] ALT With P-5'-P [Catalytic activity/Vol] 73 U/L High 10 - 52 U/L [facility] Anion gap [Moles/Vol] 13 mmol/L 10 - 20 mmol/L [facility] AST With P-5'-P [Catalytic activity/Vol] 54 U/L High 9 - 39 U/L [facility] Bilirubin [Mass/Vol] 0.6 mg/dL 0.0 - 1 .2 mg/dL [facility] Calcium [Mass/Vol] 9.1 mg/dL 8.6 - 10. 3 mg/dL [facility] Chloride [Moles/Vol] 105 mmol/L 98 - 10 7 mmol/L [facility] CO2 [Moles/Vol] 23 mmol/L 21 - 32 mmol/L [facility] Creatinine [Mass/Vol] 1.16 mg/dL 0.50 - 1.30 mg/dL [facility] GFR/1.73 sq M.predicted among non-blacks MDRD (S/P/Bld) [Vol rate/Area] 72 mL/min/{1.73_m2} - PINF [facility] Glucose [Mass/Vol] 95 mg/dL 74 - 99 mg/dL [facility] Interpretation and review of laboratory results Abnormal [facility] Potassium [Moles/Vol] 4.1 mmol/L 3.5 - 5.3 mmol/L [facility] Protein [Mass/Vol] 7.0 g/dL 6.4 - 8.2 g/dL [facility] Sodium [Moles/Vol] 137 mmol/L 136 - 145 mmol/L [facility] Urea nitrogen [Mass/Vol] 22 mg/dL 6 - 23 mg/dL [facility] ECG 12-LEADon 07-25-2023 ECG 12-LEAD Ventricular Rate 77 Atrial Rate 77 P-R Interval 168 QRS Duration 90 Q-T Interval 370 QTC Calculation(Bazett) 418 P [place] 49 R [place] 26 T [place] -24 QRS Count 12 Q Onset 217 P Onset 133 P Offset 187 T Offset 402 QTC Fredericia 402 Diagnosis Normal sinus rhythm Inferior infarct (cited on or before 19-JUL-2023) Abnormal ECG When compared with ECG of 24-JUL-2023 12:44, No significant change was found Confirmed by Heraclio Benitez ([id number]) on 07/31/2023 11:24:28 AM Normal [facility] Fibrinogenon 07-25-2023 Fibrinogen Coag (PPP) [Mass/Vol] 313 mg/dL 200 - 400 mg/dL [facility] Fibrinogen Coag (PPP) [Mass/ Vol]on 07-25-2023 Interpretation and review of laboratory results Normal [facility] Gas and Carbon monoxide and Electrolytes panel (BldA)on 07-25-2023 Anion gap 4 (BldA) [Moles/Vol] 7 Low [facility] Base excess Calc (Bld) [Moles/Vol] 1.9 mmol/L -2.0 - 3.0 mmol/L [facility] Calcium.ionized (BldA) [Moles/Vol] 1.15 mmol/L 1.10 - 1.33 mmol/L [facility] Chloride (BldA) [Moles/Vol] 105 mmol/L 98 - 107 mmol/L [facility] CO2 (Bld) [Partial pressure] 41 mm[Hg] [facility] Glucose [Mass/Vol] 202 mg/dL High 74 - 99 mg/dL [facility] HCO3 (Bld) [Moles/Vol] 26.6 mmol/L High 22.0 - 26.0 mmol/L [facility] Hematocrit Est (Bld) [Volume fraction] 35.0 % Low 41.0 - 52.0 % [facility] Hemoglobin (Bld) [Mass/Vol] 11.5 g/dL Low 13.5 - 17.5 g/dL [facility] Inhaled oxygen concentration 28 % [facility] Interpretation and review of laboratory results Abnormal [facility] Lactate (BldA) [Moles/Vol] 1.6 mmol/L 0.4 - 2.0 mmol/L [facility] Oxygen (Bld) [Partial pressure] 131 mm[Hg] High [facility] Oxyhemoglobin (BldA) [Mass fraction] 96.6 % 94.0 - 98.0 % [facility] pH (Bld) 7.42 [pH] 7.38 - 7.42 pH [facility] Potassium (BldA) [Moles/Vol] 4.1 mmol/L 3.5 - 5.3 mmol/L [facility] Sodium (BldA) [Moles/Vol] 134 mmol/L Low 136 - 145 mmol/L [facility] Anion gap 4 (BldA) [Moles/Vol] 11 [facility] Base excess Calc (Bld) [Moles/Vol] -2.1000 mmol/L Low -2.0 - 3.0 mmol/L [facility] Calcium.ionized (BldA) [Moles/Vol] 1.10 mmol/L 1.10 - 1.33 mmol/L [facility] Chloride (BldA) [Moles/Vol] 104 mmol/L 98 - 107 mmol/L [facility] CO2 (Bld) [Partial pressure] 44 mm[Hg] [facility] Glucose [Mass/Vol] 137 mg/dL High 74 - 99 mg/dL [facility]3 (Bld) [Moles/Vol] 23.7 mmol/L 22.0 - 26.0 mmol/L [facility] Hematocrit Est (Bld) [Volume fraction] 34.0 % Low 41.0 - 52.0 % [facility] Hemoglobin (Bld) [Mass/Vol] 11.3 g/dL Low 13.5 - 17.5 g/dL [facility] Inhaled oxygen concentration 90 % [facility] Interpretation and review of laboratory results Abnormal [facility] Lactate (BldA) [Moles/Vol] 1.8 mmol/L 0.4 - 2.0 mmol/L [facility] Oxygen (Bld) [Partial pressure] 333 mm[Hg] High [facility] Oxyhemoglobin (BldA) [Mass fraction] 97.6 % 94.0 - 98.0 % [facility] pH (Bld) 7.34 [pH] Low 7.38 - 7.42 pH [facility] Potassium (BldA) [Moles/Vol] 5.4 mmol/L High 3.5 - 5.3 mmol/L [facility] Sodium (BldA) [Moles/Vol] 133 mmol/L Low 136 - 145 mmol/L [facility] Anion gap 4 (BldA) [Moles/Vol] 9 Low [facility] Base excess Calc (Bld) [Moles/Vol] -0.7000 mmol/L -2.0 - 3.0 mmol/L [facility] Calcium.ionized (BldA) [Moles/Vol] 1.05 mmol/L Low 1.10 - 1.33 mmol/L [facility] Chloride (BldA) [Moles/Vol] 104 mmol/L 98 - 107 mmol/L [facility] CO2 (Bld) [Partial pressure] 44 mm[Hg] High [facility] Glucose [Mass/Vol] 142 mg/dL High 74 - 99 mg/dL [facility] HCO3 (Bld) [Moles/Vol] 24.9 mmol/L 22.0 - 26.0 mmol/L [facility] Hematocrit Est (Bld) [Volume fraction] 34.0 % Low 41.0 - 52.0 % [facility] Hemoglobin (Bld) [Mass/Vol] 11.2 g/dL Low 13.5 - 17.5 g/dL [facility] Inhaled oxygen concentration 80 % [facility] Interpretation and review of laboratory results Abnormal [facility] Lactate (BldA) [Moles/Vol] 1.8 mmol/L 0.4 - 2.0 mmol/L [facility] Oxygen (Bld) [Partial pressure] 312 mm[Hg] High [facility] Oxyhemoglobin (BldA) [Mass fraction] 97.6 % 94.0 - 98.0 % [facility] pH (Bld) 7.36 [pH] Low 7.38 - 7.42 pH [facility] Potassium (BldA) [Moles/Vol] 5.4 mmol/L High 3.5 - 5.3 mmol/L [facility] Sodium (BldA) [Moles/Vol] 132 mmol/L Low 136 - 145 mmol/L [facility] Anion gap 4 (BldA) [Moles/Vol] 9 Low [facility] Base excess Calc (Bld) [Moles/Vol] 0.2 mmol/L -2.0 - 3.0 mmol/L [facility] Calcium.ionized (BldA) [Moles/Vol] 1.08 mmol/L Low 1.10 - 1.33 mmol/L [facility] Chloride (BldA) [Moles/Vol] 103 mmol/L 98 - 107 mmol/L [facility] CO2 (Bld) [Partial pressure] 46 mm[Hg] High [facility] Glucose [Mass/Vol] 142 mg/dL High 74 - 99 mg/dL [facility] HCO3 (Bld) [Moles/Vol] 26.0 mmol/L 22.0 - 26.0 mmol/L [facility] Hematocrit Est (Bld) [Volume fraction] 34.0 % Low 41.0 - 52.0 % [facility] Hemoglobin (Bld) [Mass/Vol] 11.3 g/dL Low 13.5 - 17.5 g/dL [facility] Inhaled oxygen concentration 80 % [facility] Interpretation and review of laboratory results Abnormal [facility] Lactate (BldA) [Moles/Vol] 1.6 mmol/L 0.4 - 2.0 mmol/L [facility] Oxygen (Bld) [Partial pressure] 397 mm[Hg] High [facility] Oxyhemoglobin (BldA) [Mass fraction] 97.6 % 94.0 - 98.0 % [facility] pH (Bld) 7.36 [pH] Low 7.38 - 7.42 pH [facility] Potassium (BldA) [Moles/Vol] 5.3 mmol/L 3.5 - 5.3 mmol/L [facility] Sodium (BldA) [Moles/Vol] 133 mmol/L Low 136 - 145 mmol/L [facility] Anion gap 4 (BldA) [Moles/Vol] 10 [facility] Base excess Calc (Bld) [Moles/Vol] -2.2000 mmol/L Low -2.0 - 3.0 mmol/L [facility] Calcium.ionized (BldA) [Moles/Vol] 1.08 mmol/L Low 1.10 - 1.33 mmol/L [facility] Chloride (BldA) [Moles/Vol] 103 mmol/L 98 - 107 mmol/L [facility] CO2 (Bld) [Partial pressure] 41 mm[Hg] [facility] Glucose [Mass/Vol] 173 mg/dL High 74 - 99 mg/dL [facility] HCO3 (Bld) [Moles/Vol] 23.2 mmol/L 22.0 - 26.0 mmol/L [facility] Hematocrit Est (Bld) [Volume fraction] 34.0 % Low 41.0 - 52.0 % [facility] Hemoglobin (Bld) [Mass/Vol] 11.4 g/dL Low 13.5 - 17.5 g/dL [facility] Inhaled oxygen concentration 100 % [facility] Interpretation and review of laboratory results Abnormal [facility] Lactate (BldA) [Moles/Vol] 1.5 mmol/L 0.4 - 2.0 mmol/L [facility] Oxygen (Bld) [Partial pressure] 488 mm[Hg] High [facility] Oxyhemoglobin (BldA) [Mass fraction] 97.6 % 94.0 - 98.0 % [facility] pH (Bld) 7.36 [pH] Low 7.38 - 7.42 pH [facility] Potassium (BldA) [Moles/Vol] 5.4 mmol/L High 3.5 - 5.3 mmol/L [facility] Sodium (BldA) [Moles/Vol] 131 mmol/L Low 136 - 145 mmol/L [facility] Gas panel (BldA)on 4 Base excess Calc (Bld) [Moles/Vol] 0.3 mmol/L -2.0 - 3.0 mmol/L [facility] CO2 (Bld) [Partial pressure] 45 mm[Hg] High [facility] HCO3 (Bld) [Moles/Vol] 26.0 mmol/L 22.0 - 26.0 mmol/L [facility] Inhaled oxygen concentration 60 % [facility] Interpretation and review of laboratory results Abnormal [facility] Oxygen (Bld) [Partial pressure] 182 mm[Hg] High [facility] Oxyhemoglobin (BldA) [Mass fraction] 98.2 % High 94.0 - 98.0 % [facility] Peep CHM2O 5.0 cm H2O [facility] pH (Bld) 7.37 [pH] Low 7.38 - 7.42 pH [facility] Specimen drawn from Nom Arterial Line [facility] Tidal Volume 500 mL [facility] Ventilator Mode A/C [facility] Ventilator Rate 12 bpm [facility] Gas panel (BldV)on Anion gap 4 (BldV) [Moles/Vol] 11.0 mmol/L 10.0 - 25.0 mmol/L [facility] Base excess Calc (BldV) [Moles/Vol] -1.8000 mmol/L -2.0 - 3.0 mmol/L [facility] Calcium.ionized (BldV) [Moles/Vol] 1.09 mmol/L Low 1.10 - 1.33 mmol/L [facility] Chloride (BldV) [Moles/Vol] 102 mmol/L 98 - 107 mmol/L [facility] CO2 (BldV) [Partial pressure] 46 mm[Hg] [facility] Glucose [Mass/Vol] 160 mg/dL High 74 - 99 mg/dL [facility] HCO3 (Bld) [Moles/Vol] 24.3 mmol/L 22.0 - 26.0 mmol/L [facility] Hematocrit Est (Bld) [Volume fraction] 34.0 % Low 41.0 - 52.0 % [facility] Hemoglobin (Bld) [Mass/Vol] 11.4 g/dL Low 13.5 - 17.5 g/dL [facility] Inhaled oxygen concentration 90 % [facility] Interpretation and review of laboratory results Abnormal [facility] Lactate (BldV) [Moles/Vol] 1.5 mmol/L 0.4 - 2.0 mmol/L [facility] Oxygen (BldV) [Partial pressure] 65 mm[Hg] High [facility] Oxygen saturation in Venous blood 95 % High 45 - 75 % [facility] Oxyhemoglobin (BldV) [Mass fraction] 92.4 % High 45.0 - 75.0 % [facility] pH (BldV) 7.33 [pH] 7.33 - 7.43 pH [facility] Potassium (BldV) [Moles/Vol] 5.5 mmol/L High 3.5 - 5.3 mmol/L [facility] Sodium (BldV) [Moles/Vol] 132 mmol/L Low 136 - 145 mmol/L [facility] Anion gap 4 (BldV) [Moles/Vol] 10.0 mmol/L 10.0 - 25.0 mmol/L [facility] Base excess Calc (BldV) [Moles/Vol] -1.1000 mmol/L -2.0 - 3.0 mmol/L [facility] Calcium.ionized (BldV) [Moles/Vol] 1.19 mmol/L 1.10 - 1.33 mmol/L [facility] Chloride (BldV) [Moles/Vol] 103 mmol/L 98 - 107 mmol/L [facility] CO2 (BldV) [Partial pressure] 48 mm[Hg] [facility] Glucose [Mass/Vol] 133 mg/dL High 74 - 99 mg/dL [facility] HCO3 (Bld) [Moles/Vol] 25.3 mmol/L 22.0 - 26.0 mmol/L [facility] Hematocrit Est (Bld) [Volume fraction] 41.0 % 41.0 - 52.0 % [facility] Hemoglobin (Bld) [Mass/Vol] 13.8 g/dL 13.5 - 17.5 g/dL [facility] Inhaled oxygen concentration 100 % [facility] Interpretation and review of laboratory results Abnormal [facility] Lactate (BldV) [Moles/Vol] 1.0 mmol/L 0.4 - 2.0 mmol/L [facility] Oxygen (BldV) [Partial pressure] 56 mm[Hg] High [facility] Oxygen saturation in Venous blood 88 % High 45 - 75 % [facility] Oxyhemoglobin (BldV) [Mass fraction] 85.2 % High 45.0 - 75.0 % [facility] pH (BldV) 7.33 [pH] 7.33 - 7.43 pH [facility] Potassium (BldV) [Moles/Vol] 4.2 mmol/L 3.5 - 5.3 mmol/L [facility] Sodium (BldV) [Moles/Vol] 134 mmol/L Low 136 - 145 mmol/L [facility] Glucose Test strip manual (B ld) [Mass/Vol]on 07-25-2023 Glucose [Mass/Vol] 181 mg/dL High 74 - 99 mg/dL [facility] Interpretation and review of laboratory results Abnormal [facility] Glucose [Mass/Vol] 106 mg/dL High 74 - 99 mg/dL [facility] Interpretation and review of laboratory results Abnormal [facility] Glucose [Mass/Vol] 108 mg/dL High 74 - 99 mg/dL [facility] Interpretation and review of laboratory results Abnormal [facility] Laboratory - Coagulationon 0 07-25-2023 ACT Coag (Bld) 103 s [facility] Comment on above: Target ACT range licha l vary based on the patient population, clinical status, and surgical intervention occurring. ACT Coag (Bld) 578 s [facility] Comment on above: Target ACT range licha l vary based on the patient population, clinical status, and surgical intervention occurring. ACT Coag (Bld) 472 s [facility] Comment on above: Target ACT range licha l vary based on the patient population, clinical status, and surgical intervention occurring. ACT Coag (Bld) 465 s [facility] Comment on above: Target ACT range licha l vary based on the patient population, clinical status, and surgical intervention occurring. ACT Coag (Bld) 435 s [facility] Comment on above: Target ACT range licha l vary based on the patient population, clinical status, and surgical intervention occurring. ACT Coag (Bld) 434 s [facility] Comment on above: Target ACT range licha l vary based on the patient population, clinical status, and surgical intervention occurring. ACT Coag (Bld) 422 s [facility] Comment on above: Target ACT range licha l vary based on the patient population, clinical status, and surgical intervention occurring. ACT Coag (Bld) 102 s [facility] Comment on above: Target ACT range licha l vary based on the patient population, clinical status, and surgical intervention occurring. Lactateon 07-25-2023 Lactate [Moles/Vol] 1.6 mmol/L 0.4 - 2. 0 mmol/L [facility] Lactate [Moles/Vol] 1.7 mmol/L 0.4 - 2. 0 mmol/L [facility] Lactate [Moles/Vol]on 2023 Interpretation and review of laboratory results Normal [facility] Interpretation and review of laboratory results Normal [facility] Magnesiumon 07-25-2023 Magnesium [Mass/Vol] 2.39 mg/dL 1.60 - 2.40 mg/dL [facility] Magnesium [Mass/Vol] 2.94 mg/dL High 1.60 - 2.40 mg/dL [facility] Magnesium [Mass/Vol]on 07-24 Interpretation and review of laboratory results Normal [facility] No Panel Informationon 07-24 [facility] Interpretation and review of laboratory results Abnormal [facility] PT and aPTT panel Coag (PPP) on 07-25-2023 aPTT Coag (PPP) [Time] 32 s [facility] INR Coag (PPP) [Relative time] 1.2 {INR} High 0.9 - 1.1 [facility] Interpretation and review of laboratory results Abnormal [facility] PT Coag (PPP) [Time] 13.8 s [facility] aPTT Coag (PPP) [Time] 52 s [facility] Coag (PPP) [Relative time] 1.1 {INR} 0.9 - 1.1 [facility] Interpretation and review of laboratory results Abnormal [facility] PT Coag (PPP) [Time] 12.7 s [facility] Renal function 2000 panelon 07-25-2023 Albumin BCP dye [Mass/Vol] 3.7 g/dL 3.4 - 5.0 g/dL [facility] Anion gap [Moles/Vol] 11 mmol/L 10 - 20 mmol/L [facility] Calcium [Mass/Vol] 8.0 mg/dL Low 8.6 - 10. 3 mg/dL [facility] Chloride [Moles/Vol] 106 mmol/L 98 - 10 7 mmol/L [facility] CO2 [Moles/Vol] 24 mmol/L 21 - 32 mmol/L [facility] Creatinine [Mass/Vol] 1.11 mg/dL 0.50 - 1.30 mg/dL [facility] GFR/1.73 sq M.predicted among non-blacks MDRD (S/P/Bld) [Vol rate/Area] 76 mL/min/{1.73_m2} - PINF [facility] Glucose [Mass/Vol] 199 mg/dL High 74 - 99 mg/dL [facility] Interpretation and review of laboratory results Abnormal [facility] Phosphate [Mass/Vol] 2.6 mg/dL 2.5 - 4 .9 mg/dL [facility] Potassium [Moles/Vol] 4.1 mmol/L 3.5 - 5.3 mmol/L [facility] Sodium [Moles/Vol] 137 mmol/L 136 - 145 mmol/L [facility] Urea nitrogen [Mass/Vol] 15 mg/dL 6 - 23 mg/dL [facility] Albumin BCP dye [Mass/Vol] 3.3 g/dL Low 3.4 - 5.0 g/dL [facility] Anion gap [Moles/Vol] 10 mmol/L 10 - 20 mmol/L [facility] Calcium [Mass/Vol] 8.4 mg/dL Low 8.6 - 10. 3 mg/dL [facility] Chloride [Moles/Vol] 108 mmol/L High 98 - 10 7 mmol/L [facility] CO2 [Moles/Vol] 26 mmol/L 21 - 32 mmol/L [facility] Creatinine [Mass/Vol] 1.04 mg/dL 0.50 - 1.30 mg/dL [facility] GFR/1.73 sq M.predicted among non-blacks MDRD (S/P/Bld) [Vol rate/Area] 82 mL/min/{1.73_m2} - PINF [facility] Glucose [Mass/Vol] 104 mg/dL High 74 - 99 mg/dL [facility] Phosphate [Mass/Vol] 3.6 mg/dL 2.5 - 4 .9 mg/dL [facility] Potassium [Moles/Vol] 4.7 mmol/L 3.5 - 5.3 mmol/L [facility] Sodium [Moles/Vol] 139 mmol/L 136 - 145 mmol/L [facility] Urea nitrogen [Mass/Vol] 16 mg/dL 6 - 23 mg/dL [facility] SST TOPon 07-25-2023 Extra Tube Hold for add-ons. [facility] XR Chest Single viewon 07-24 UH MMODAL UH ODAL [facility] Work Phone: Radiology Study observation (narrative) [facility] Work Phone: UH MMODAL UH MMODAL [facility] Work Phone: Radiology Study observation (narrative) [facility] Work Phone: XR Chest Single viewOrdered By: Janet Pate on 07-25-2023 [facility] Work Phone: XR Chest Single viewOrdered By: Bjorn Sandoval on 07-25-2023 [facility] Work Phone: Basic metabolic 2000 panelon 07-24-2023 Anion gap [Moles/Vol] 13 mmol/L 10 - 20 mmol/L [facility] Calcium [Mass/Vol] 9.2 mg/dL 8.6 - 10. 3 mg/dL [facility] Chloride [Moles/Vol] 105 mmol/L 98 - 10 7 mmol/L [facility] CO2 [Moles/Vol] 22 mmol/L 21 - 32 mmol/L [facility] Creatinine [Mass/Vol] 1.20 mg/dL 0.50 - 1.30 mg/dL [facility] GFR/1.73 sq M.predicted among non-blacks MDRD (S/P/Bld) [Vol rate/Area] 69 mL/min/{1.73_m2} - PINF [facility] Glucose [Mass/Vol] 98 mg/dL 74 - 99 mg/dL [facility] Potassium [Moles/Vol] 4.0 mmol/L 3.5 - 5.3 mmol/L [facility] Sodium [Moles/Vol] 136 mmol/L 136 - 145 mmol/L [facility] Urea nitrogen [Mass/Vol] 22 mg/dL 6 - 23 mg/dL [facility] Blood type and Indirect anti body screen panel (Bld)on 07-24-2023 ABO group Nom (Bld) A [facility] Blood group antibody screen Ql Negative [facility] D Ag Ql (Bld) Positive [facility] CBC panel Auto (Bld)on 07-23 Erythrocyte distribution width (RBC) [Ratio] 13.1 % 11.5 - 14.5 % [facility] Hematocrit (Bld) [Volume fraction] 45.3 % 41.0 - 52.0 % [facility] Hemoglobin (Bld) [Mass/Vol] 15.5 g/dL 13.5 - 17.5 g/dL [facility] Interpretation and review of laboratory results Normal [facility] MCH (RBC) [Entitic mass] 30.5 pg 26.0 - 34.0 pg [facility] MCHC (RBC) [Mass/Vol] 34.2 g/dL 32.0 - 36.0 g/dL [facility] MCV (RBC) [Entitic vol] 89 fL 80 - 100 fL [facility] Nucleated RBC/100 WBC (Bld) [Ratio] 0.0 % [facility] Platelets (Bld) [#/Vol] 234 10*3/uL [facility] RBC (Bld) [#/Vol] 5.08 10*6/uL [facility] WBC (Bld) [#/Vol] 9.7 10*3/uL [facility] ECG 12 LeadOrdered By: Ja Moreland on 07-24-2023 Atrial Rate 67 BPM [facility] Work Phone: [phone] P [place] 31 degrees [facility] Work Phone: [phone] P Offset 200 ms [facility] Work Phone: [phone] P Onset 146 ms [facility] Work Phone: [phone] [place] Interval 152 ms [facility] Work Phone: [phone] Q Onset 222 ms [facility] Work Phone: [phone] QRS Count 11 beats [facility] Work Phone: [phone] QRS Duration 82 ms [facility] Work Phone: [phone] QT Interval 360 ms [facility] Work Phone: [phone] QTC Calculation(Bazett) 380 ms [facility] Work Phone: [phone] QTC Fredericia 373 ms [facility] Work Phone: [phone] R [place] 19 degrees [facility] Work Phone: [phone] T [place] -25 degrees [facility] Work Phone: [phone] T Offset 402 ms [facility] Work Phone: [phone] Ventricular Rate 67 BPM [facility] Work Phone: [phone] [facility] Work Phone: [phone] ECG 12 Leadon 07-24-2023 MUSE [facility] Work Phone: ECG 12-LEADon 07-24-2023 ECG 12-LEAD Ventricular Rate 67 Atrial Rate 67 P-R Interval 142 QRS Duration 92 Q-T Interval 376 QTC Calculation(Bazett) 397 P [place] 29 R [place] 44 T [place] -47 QRS Count 11 Q Onset 214 P Onset 143 P Offset 195 T Offset 402 QTC Fredericia 390 Diagnosis Normal sinus rhythm Possible Inferior infarct (cited on or before 19-JUL-2023) Abnormal ECG When compared with ECG of 23-JUL-2023 06:42, No significant change was found Confirmed by Nadir Moreland ([id number]) on 07/24/2023 9:28:45 PM Normal [facility] Electrocardiogram, 12-leadon 07-24-2023 Atrial Rate 67 BPM [facility] Work Phone: [phone] P [place] 29 degrees [facility] Work Phone: [phone] P Offset 195 ms [facility] Work Phone: [phone] P Onset 143 [facility] Work Phone: [phone] [place] Interval 142 [facility] Work Phone: [phone] Q Onset 214 ms [facility] Work Phone: [phone] QRS Count 11 beats [facility] Work Phone: [phone] QRS Duration 92 ms [facility] Work Phone: [phone] QT Interval 376 ms [facility] Work Phone: [phone] QTC Calculation(Bazett) 397 ms [facility] Work Phone: [phone] QTC Fredericia 390 ms [facility] Work Phone: [phone] R [place] 44 degrees [facility] Work Phone: [phone] T [place] -47 degrees [facility] Work Phone: [phone] T Offset 402 ms [facility] Work Phone: [phone] Ventricular Rate 67 BPM [facility] Work Phone: [phone] MUSE [facility] Work Phone: [phone] [facility] Work Phone: Heparin Assayon 07-24-2023 Heparin unfractionated Chromogenic method Qn (PPP) 0.5 See Comment Below for Therapeutic Ranges IU/mL [facility] Heparin unfractionated Chrom ogenic method Qn (PPP)on 07-24-2023 Interpretation and review of laboratory results Normal [facility] Magnesiumon 07-24-2023 Magnesium [Mass/Vol] 2.06 mg/dL 1.60 - 2.40 mg/dL [facility] No Panel Informationon 07-23 Interpretation and review of laboratory results Normal [facility] VERIFY ABO/Rh Group Teston 0 07-24-2023 ABO group Nom (Bld) A [facility] D Ag Ql (Bld) Positive [facility] ECG 12-LEADon 07-23-2023 ECG 12-LEAD Ventricular Rate 67 Atrial Rate 67 P-R Interval 152 QRS Duration 82 Q-T Interval 360 QTC Calculation(Bazett) 380 P [place] 31 R [place] 19 T [place] -25 QRS Count 11 Q Onset 222 P Onset 146 P Offset 200 T Offset 402 QTC Fredericia 373 Diagnosis Normal sinus rhythm Inferior infarct (cited on or before 19-JUL-2023) Abnormal ECG When compared with ECG of 22-JUL-2023 06:48, No significant change was found Confirmed by Nadir Moreland ([id number]) on 07/24/2023 9:46:59 AM Normal [facility] Heparin Assayon 07-23-2023 Heparin unfractionated Chromogenic method Qn (PPP) 0.5 See Comment Below for Therapeutic Ranges IU/mL [facility] Heparin unfractionated Chrom ogenic method Qn (PPP)on 07-23-2023 Interpretation and review of laboratory results Normal [facility] ECG 12 Leadon 07-22-2023 Atrial Rate 66 BPM [facility] Work Phone: P [place] 6 degrees [facility] Work Phone: P Offset 190 ms [facility] Work Phone: P Onset 140 ms [facility] Work Phone: [phone] [place] Interval 144 ms [facility] Work Phone: [phone] Q Onset 212 ms [facility] Work Phone: [phone] QRS Count 11 beats [facility] Work Phone: [phone] QRS Duration 84 ms [facility] Work Phone: [phone] QT Interval 376 ms [facility] Work Phone: [phone] QTC Calculation(Bazett) 394 ms [facility] Work Phone: [phone] QTC Fredericia 388 ms [facility] Work Phone: [phone] R [place] 24 degrees [facility] Work Phone: [phone] T [place] -30 degrees [facility] Work Phone: [phone] T Offset 400 ms [facility] Work Phone: [phone] Ventricular Rate 66 BPM [facility] Work Phone: [phone] MUSE [facility] Work Phone: [phone] [facility] Work Phone: [phone] Atrial Rate 76 BPM [facility] Work Phone: [phone] [place] Interval 142 ms [facility] Work Phone: [phone] QRS Duration 86 ms [facility] Work Phone: [phone] QT Interval 376 ms [facility] Work Phone: [phone] QTC Calculation(Bazett) 423 ms [facility] Work Phone: [phone] Ventricular Rate 76 BPM [facility] Work Phone: [phone] ECG 12-LEADon 07-22-2023 ECG 12-LEAD Ventricular Rate 66 Atrial Rate 66 P-R Interval 144 QRS Duration 84 Q-T Interval 376 QTC Calculation(Bazett) 394 P [place] 6 R [place] 24 T [place] -30 QRS Count 11 Q Onset 212 P Onset 140 P Offset 190 T Offset 400 QTC Fredericia 388 Diagnosis Normal sinus rhythm Possible Inferior infarct (cited on or before 19-JUL-2023) Abnormal ECG When compared with ECG of 21-JUL-2023 06:27, (unconfirmed) No significant change was found Confirmed by Courtney Shrestha ([id number]) on 07/22/2023 7:37:18 AM Normal [facility] Heparin Assay, UFHon 024 Heparin unfractionated Chromogenic method Qn (PPP) 0.5 See Comment Below for Therapeutic Ranges IU/mL [facility] Heparin unfractionated Chrom ogenic method Qn (PPP)on 07-22-2023 Interpretation and review of laboratory results Normal [facility] ECG 12-LEADon 07-21-2023 ECG 12-LEAD Ventricular Rate 76 Atrial Rate 76 P-R Interval 142 QRS Duration 86 Q-T Interval 376 QTC Calculation(Bazett) 423 P [place] 30 R [place] 24 T [place] -39 QRS Count 12 Q Onset 220 P Onset 149 P Offset 204 T Offset 408 QTC Fredericia 406 Diagnosis Normal sinus rhythm Inferior infarct (cited on or before 19-JUL-2023) T wave abnormality, consider lateral ischemia Abnormal ECG When compared with ECG of 20-JUL-2023 06:47, No significant change was found Confirmed by Courtney Shrestha ([id number]) on 07/22/2023 7:25:23 AM Normal [facility] ECG 12-LEADon 07-20-2023 ECG 12-LEAD Ventricular Rate 75 Atrial Rate 75 P-R Interval 156 QRS Duration 84 Q-T Interval 360 QTC Calculation(Bazett) 402 P [place] 45 R [place] 46 T [place] -30 QRS Count 12 Q Onset 220 P Onset 142 P Offset 199 T Offset 400 QTC Fredericia 387 Diagnosis Normal sinus rhythm Possible Inferior infarct (cited on or before 19-JUL-2023) Abnormal ECG When compared with ECG of 19-JUL-2023 07:06, No significant change was found Confirmed by Courtney Shrestha ([id number]) on 07/20/2023 5:44:48 PM Normal [facility] ECG 12-LEADon 07-19-2023 ECG 12-LEAD Ventricular Rate 66 Atrial Rate 66 P-R Interval 132 QRS Duration 80 Q-T Interval 376 QTC Calculation(Bazett) 394 P [place] 4 R [place] 18 T [place] -24 QRS Count 11 Q Onset 214 P Onset 148 P Offset 191 T Offset 402 QTC Fredericia 388 Diagnosis Normal sinus rhythm Possible Inferior infarct , age undetermined Abnormal ECG No previous ECGs available Confirmed by Courtney Shrestha ([id number]) on 07/19/2023 7:31:32 AM Normal [facility] Partial Thromboplastin Timeo n 07-19-2023 aPTT Coag (Bld) [Time] 46.6 s High 25.1-36.5 [facility] Comment on above: Result Comment: A he matocrit value greater than 55% may lead to inaccurate results in coagulation testing. Patients having hematocrit values >55% require a special collection tube for coagulation studies. Please contact the laboratory at [phone] for redraw instructions. PERFORMED BY: [place] [address] PATH[employer]IST [employer] PROJECT MANAGER ANNE MCFARLAND M.D. Performed By: #### H S TROP #### [address] A1C with Estimated Average G [facility] 07-18-2023 Glucose [Mass/Vol] 108 mg/dL Normal [facility] Comment on above: Result Comment: PERF ORMED BY: [place] [address] PATHOLOGIST [employer]PER[employer] PROJECT MANAGER ANNE MCFARLAND M.D. Performed By: #### H S TROP #### [facility] [address] [place] [address] HbA1c (Bld) [Mass fraction] 5.4 % Normal 4.3-5.6 [facility] Comment on above: Result Comment: Incr eased risk for diabetes: 5.7 - 6.4 diabetes: >6.4 glycemic control for adults with diabetes: <7.0 Performed By: #### H S TROP #### [address] Basic Metabolic Panelon 03-0 Anion gap [Moles/Vol] 9.7 mmol/L Normal 6.0-15.0 [facility] Comment on above: Order Comment: FASTI NG Y Performed By: #### L IPID, BMP #### [facility] [address] Calcium [Mass/Vol] 8.9 mg/dL Normal 8.6-10.3 [facility] Comment on above: Order Comment: FASTI NG Y Performed By: #### L IPID, BMP #### [facility] [address] [place] [address] [place] Chloride [Moles/Vol] 108 mmol/L High 98-107 [facility] Comment on above: Order Comment: FASTI NG Y Performed By: #### L IPID, BMP #### [facility] [address] [place] [address] CO2 [Moles/Vol] 24.5 mmol/L Normal 21.0-31.0 [facility] Comment on above: Order Comment: FASTI NG Y Performed By: #### L IPID, BMP #### [address] Creatinine [Mass/Vol] 1.06 mg/dL Normal 0.70-1.30 [facility] Comment on above: Order Comment: FASTI NG Y Performed By: #### L IPID, BMP #### [facility] [address] [place] [address] Creatinine Clr Calc Pharmacy 87.45 [facility] Comment on above: Order Comment: FASTI NG Y Performed By: #### L IPID, BMP #### [facility] [address] [place] [address] [place] GFR/1.73 sq M.predicted MDRD (S/P/Bld) [Vol rate/Area] mL/min/{1.73_m2} [facility] Comment on above: Order Comment: FASTI NG Y Performed By: #### L IPID, BMP #### [facility] [address] [place] [address] Glucose [Mass/Vol] 91 mg/dL Normal 70-100 [facility] Comment on above: Order Comment: FASTI NG Y Result Comment: [place] Glucose Reference Range is dependent on time and content of last meal. Glucose of more than 200 mg/dL in a nonstressed, ambulatory subject supports the diagnosis of Diabetes Mellitus. ADA recommended reference range Performed By: #### L IPID, BMP #### [address] Potassium [Moles/Vol] 4.2 mmol/L Normal 3.5-5.1 [facility] Comment on above: Order Comment: FASTI NG Y Performed By: #### L IPID, BMP #### [address] Sodium [Moles/Vol] 138 mmol/L Normal 136-145 [facility] Comment on above: Order Comment: FASTI NG Y Performed By: #### L IPID, BMP #### [address] Urea nitrogen [Mass/Vol] 16 mg/dL Normal 7-25 [facility] Comment on above: Order Comment: FASTI NG Y Performed By: #### L IPID, BMP #### [address] Complete Blood Count Auto Di ffon 07-18-2023 Basophils (Bld) [#/Vol] 0.1 10*3/uL Normal 0.0-0.2 [facility] Comment on above: Result Comment: PERF ORMED BY: [place] [address] PATHOLOGIST [employer] PROJECT MANAGER ANNE MCFARLAND M.D. Performed By: #### H S TROP #### [place] [address] [place] Basophils/100 WBC (Bld) 1.0 % Normal . [facility] Comment on above: Performed By: #### H S TROP #### [place] [address] [place] Eosinophils (Bld) [#/Vol] 0.1 10*3/uL Normal 0.0-0.45 [facility] Comment on above: Performed By: #### H S TROP #### [place] [address] Eosinophils/100 WBC (Bld) 1.2 % Normal . [facility] Comment on above: Performed By: #### H S TROP #### [address] Erythrocyte distribution width (RBC) [Ratio] 13.5 % Normal 12.0-14.8 [facility] Comment on above: Performed By: #### H S TROP #### [address] Hematocrit (Bld) [Volume fraction] 43.2 % Normal 38.8-50.0 [facility] Comment on above: Performed By: #### H S TROP #### [address] Hemoglobin (Bld) [Mass/Vol] 14.5 g/dL Normal 13.0-17.0 [facility] Comment on above: Performed By: #### H S TROP #### [address] Lymphocytes (Bld) [#/Vol] 3.3 10*3/uL Normal 1.00-4.8 [facility] Comment on above: Performed By: #### H S TROP #### [address] Lymphocytes/100 WBC (Bld) 41.3 % Normal . [facility] Comment on above: Performed By: #### H S TROP #### [address] MCH (RBC) [Entitic mass] 29.7 pg Normal 27.5-35.2 [facility] Comment on above: Performed By: #### H S TROP #### [address] MCV (RBC) [Entitic vol] 88.7 fL Normal 83.5-101 [facility] Comment on above: Performed By: #### H S TROP #### [address] Mean Corpuscular HGB Conc 33.5 g/dL Normal 32.5-35.6 [facility] Comment on above: Performed By: #### H S TROP #### [facility] [address] Monocytes (Bld) [#/Vol] 0.9 10*3/uL High 0.0-0.8 [facility] Comment on above: Performed By: #### H S TROP #### [place] [address] [place] Monocytes/100 WBC (Bld) 11.2 % Normal . [facility] Comment on above: Performed By: #### H S TROP #### [address] Neutrophils (Bld) [#/Vol] 3.6 10*3/uL Normal 1.8-7.7 [facility] Comment on above: Performed By: #### H S TROP #### [address] Neutrophils/100 WBC (Bld) 45.3 % Normal . [facility] Comment on above: Performed By: #### H S TROP #### [address] NRBC% 0.1 /100{WBC} Normal 0-0.5 [facility] Comment on above: Performed By: #### H S TROP #### [address] Platelet mean volume (Bld) [Entitic vol] 8.6 fL Normal 6.6-10.1 [facility] Comment on above: Performed By: #### H S TROP #### [facility] [address] [place] [address] [place] Platelets (Bld) [#/Vol] 278 10*3/uL Normal 150-450 [facility] Comment on above: Performed By: #### H S TROP #### [address] RBC (Bld) [#/Vol] 4.87 10*6/uL Normal 3.90-5.60 [facility] Comment on above: Performed By: #### H S TROP #### [address] WBC (Bld) [#/Vol] 7.9 10*3/uL Normal 4.1-10.5 [facility] Comment on above: Performed By: #### H S TROP #### [place] [address] [place] Basophils (Bld) [#/Vol] 0.0 10*3/uL Normal 0.0-0.2 [facility] Comment on above: Result Comment: PERF ORMED BY: [place] [address] PATHOLOGIST [employer] PROJECT MANAGER ANNE MCFARLAND M.D. Performed By: #### P TT, BMP #### [address] Basophils/100 WBC (Bld) 0.4 % Normal . [facility] Comment on above: Performed By: #### P TT, BMP #### [address] Eosinophils (Bld) [#/Vol] 0.1 10*3/uL Normal 0.0-0.45 [facility] Comment on above: Performed By: #### P TT, BMP #### [address] Eosinophils/100 WBC (Bld) 1.6 % Normal . [facility] Comment on above: Performed By: #### P TT, BMP #### [address] Erythrocyte distribution width (RBC) [Ratio] 13.7 % Normal 12.0-14.8 [facility] Comment on above: Performed By: #### P TT, BMP #### [address] Hematocrit (Bld) [Volume fraction] 43.2 % Normal 38.8-50.0 [facility] Comment on above: Performed By: #### P TT, BMP #### [facility] [address] Hemoglobin (Bld) [Mass/Vol] 14.6 g/dL Normal 13.0-17.0 [facility] Comment on above: Performed By: #### P TT, BMP #### [facility] [address] Lymphocytes (Bld) [#/Vol] 3.1 10*3/uL Normal 1.00-4.8 [facility] Comment on above: Performed By: #### P TT, BMP #### [facility] [address] Lymphocytes/100 WBC (Bld) 40.3 % Normal . [facility] Comment on above: Performed By: #### P TT, BMP #### [address] MCH (RBC) [Entitic mass] 30.0 pg Normal 27.5-35.2 [facility] Comment on above: Performed By: #### P TT, BMP #### [address] MCV (RBC) [Entitic vol] 88.6 fL Normal 83.5-101 [facility] Comment on above: Performed By: #### P TT, BMP #### [address] Mean Corpuscular HGB Conc 33.9 g/dL Normal 32.5-35.6 [facility] Comment on above: Performed By: #### P TT, BMP #### [facility] [address] [place] [address] [place] Monocytes (Bld) [#/Vol] 0.8 10*3/uL Normal 0.0-0.8 [facility] Comment on above: Performed By: #### P TT, BMP #### [facility] [address] [place] [address] [place] Monocytes/100 WBC (Bld) 10.8 % Normal . [facility] Comment on above: Performed By: #### P TT, BMP #### [facility] [address] [place] [address] [place] Neutrophils (Bld) [#/Vol] 3.6 10*3/uL Normal 1.8-7.7 [facility] Comment on above: Performed By: #### P TT, BMP #### [facility] [address] [place] [id number] [place] Neutrophils/100 WBC (Bld) 46.9 % Normal . [facility] Comment on above: Performed By: #### P TT, BMP #### [facility] [address] [place] [address] [place] NRBC% 0.1 /100{WBC} Normal 0-0.5 [facility] Comment on above: Performed By: #### P TT, BMP #### [place] [address] [place] Platelet mean volume (Bld) [Entitic vol] 9.2 fL Normal 6.6-10.1 [facility] Comment on above: Performed By: #### P TT, BMP #### [place] [address] [place] Platelets (Bld) [#/Vol] 252 10*3/uL Normal 150-450 [facility] Comment on above: Performed By: #### P TT, BMP #### [place] [address] [place] RBC (Bld) [#/Vol] 4.88 10*6/uL Normal 3.90-5.60 [facility] Comment on above: Performed By: #### P TT, BMP #### [place] [address] [place] WBC (Bld) [#/Vol] 7.7 10*3/uL Normal 4.1-10.5 [facility] Comment on above: Performed By: #### P TT, BMP #### [address] [address] [place] ECG 12 lead ECGon 07-18-2023 ECG 12 lead ECG [facility] [address] [place] [address] Electrocardiograph Report Signed Patient: Robert Smiley MR#: [id number] : 1960 Acct:[id number] Age/Sex: 62 / M ADM Date: 07/17/23 Loc: Room: [address] [place] [address] Type: DIS IN Attending Dr: Apolinar Dela Cruz DO Ordering Provider: Apolinar Dela Cruz DO Date of Service: 07/18/2309/06/499 ECG/ECG 12 lead ECG: chest pain, elevated troponins. Copies to: Test Reason : Blood Pressure : / mmHG Vent. Rate : 062 BPM Atrial Rate : 062 BPM P-R Int : 144 ms QRS Dur : 080 ms QT Int : 382 ms P-R-T Axes : 018 032 -42 degrees QTc Int : 387 ms Normal sinus rhythm T wave abnormality, consider inferolateral ischemia Abnormal ECG When compared with ECG of 17-JUL-2023 07:16, (Unconfirmed) No significant change was found Confirmed by Gatito Harp ([id number]) on 07/19/2023 11:03:53 PM Referred By: Electronically Signed By:Gatito Harp Transcribed By: MUS Signed By Gatito Harp MD 07/19/23 2303 Normal [facility] Lipid Panelon 07-18-2023 Cholesterol [Mass/Vol] 202 mg/dL High 140-200 [facility] Comment on above: Order Comment: LAILA Manjarrez Result Comment: Chol less than 200 mg/dl low risk Chol 201-239 mg/dl borderline risk Chol 240 mg/dl and greater high risk Performed By: #### L IPID, BMP #### [facility] [address] [place] [id number] [place] Cholesterol in HDL [Mass/Vol] 56 mg/dL Normal 23-92 [facility] Comment on above: Order Comment: LAILA Manjarrez Result Comment: HDL CHOL ATP-III CLASSIFICATION Cardiovascular Risk HDL > or equal to 60 mg/dL LOW HDL < 40 mg/dL HIGH Performed By: #### L IPID, BMP #### [facility] [address] [place] [address] [place] Cholesterol.total/Chol esterol in HDL [Mass ratio] 3.6 {ratio} Normal <5.0 [facility] Comment on above: Order Comment: LAILA MEJIA Josseline Result Comment: PERF ORMED BY: [place] [address] PATHOLOGIST NETWORK OPERATIONS PROJECT MANAGER ANNE MCFARLAND M.D. Performed By: #### L IPID, BMP #### [facility] [address] LDL Cholesterol,Calculated 114 mg/dL High 0-100 [facility] Comment on above: Order Comment: LAILA MEJIA Y Result Comment: LDL ATP III CLASSIFICATION LDL less than 100 mg/dL Optimal LDL 100-129 mg/dL Near or above optimal LDL 130-159 mg/dL Borderline high LDL 160-189 mg/dL High LDL greater than 189 mg/dL Very high Performed By: #### L IPID, BMP #### [facility] [address] [place] [address] Triglyceride w/Reflex 158 mg/dL High 0-149 [facility] Comment on above: Order Comment: LAILA MEJIA Y Result Comment: TRIG ATP III CLASSIFICATION TRIG less than 150 mg/dL Normal TRIG 150-199 mg/dL Borderline high TRIG 200-500 mg/dL High TRIG greater than 500 mg/dL Very high Standard traceable to the Center for Disease Conrtrol and Prevention (CDC) test method. Performed By: #### L IPID, BMP #### [facility] [address] [place] [address] VLDL CHOLESTEROL 31 mg/dL Normal [facility] Comment on above: Order Comment: LAILA Manjarrez Performed By: #### L IPID, BMP #### [facility] [address] [place] [address] [place] Partial Thromboplastin Timeo n 07-18-2023 aPTT Coag (Bld) [Time] 31.6 s Normal 25.1-36.5 [facility] Comment on above: Result Comment: A he matocrit value greater than 55% may lead to inaccurate results in coagulation testing. Patients having hematocrit values >55% require a special collection tube for coagulation studies. Please contact the laboratory at [phone] for redraw instructions. PERFORMED BY: [place] [address] PATHOLOGIST NETWORK OPERATIONS PROJECT MANAGER ANNE MCFARLAND M.D. Performed By: #### H S TROP #### [place] [address] [place] aPTT Coag (Bld) [Time] 89.4 s High 25.1-36.5 [facility] Comment on above: Result Comment: A he matocrit value greater than 55% may lead to inaccurate results in coagulation testing. Patients having hematocrit values >55% require a special collection tube for coagulation studies. Please contact the laboratory at [phone] for redraw instructions. PERFORMED BY: [place] [address] PATHOLOGIST NETWORK OPERATIONS PROJECT MANAGER ANNE MCFARLAND M.D. Performed By: #### P TT #### [place] [address] [place] aPTT Coag (Bld) [Time] 57.3 s High 25.1-36.5 [facility] Comment on above: Result Comment: A he matocrit value greater than 55% may lead to inaccurate results in coagulation testing. Patients having hematocrit values >55% require a special collection tube for coagulation studies. Please contact the laboratory at [phone] for redraw instructions. PERFORMED BY: [place] [address] PATHOLOGIST NETWORK OPERATIONS PROJECT MANAGER ANNE MCFARLAND M.D. Performed By: #### P TT, BMP #### [place] [address] [place] aPTT Coag (Bld) [Time] 82.6 s High 25.1-36.5 [facility] Comment on above: Result Comment: A he matocrit value greater than 55% may lead to inaccurate results in coagulation testing. Patients having hematocrit values >55% require a special collection tube for coagulation studies. Please contact the laboratory at [phone] for redraw instructions. PERFORMED BY: [place] [address] PATHOLOGIST NETWORK OPERATIONS PROJECT MANAGER ANEN MCFARLAND M.D. Performed By: #### P TT #### [address] Prothrombin Time INRon 07-17 INR Coag (PPP) [Relative time] 1.0 {INR} Normal [facility] Comment on above: Result Comment: INR Therapeutic Range A) Pre- and Peroperative OAT started two weeks before surgery. NOT HIP SURGERY: 1.5 - 2.5 HIP SURGERY: 2 - 3 B) Primary and secondary prevention of venous THROMBOSIS: 2 - 3 C) Active venous thrombosis, pulmonary embolism and prevention of recurrent venous thrombosis: 2 - 3 D) Prevention of arterial thromboembolism including patients with mechanical heart valves: 3 - 4.5 Performed By: #### H S TROP #### [address] PT Coag (PPP) [Time] 11.4 s Normal 9.0-12.9 [facility] [place] Comment on above: Result Comment: A he matocrit value greater than 55% may lead to inaccurate results in coagulation testing. Patients having hematocrit values >55% require a special collection tube for coagulation studies. Please contact the laboratory at [phone] for redraw instructions. Performed By: #### H S TROP #### [address] B-Type Natriuretic Peptideon 07-17-2023 Natriuretic peptide B (Bld) [Mass/Vol] 145.0 pg/mL High 5-100 [facility] Comment on above: Result Comment: PERF ORMED BY: [place] [address] PATHOLOGIST NETWORK OPERATIONS PROJECT MANAGER ANNE MCFARLAND M.D. Performed By: #### B ALIGNMENT MECHANIC #### [address] Basic Metabolic Panelon Anion gap [Moles/Vol] 8.5 mmol/L Normal 6.0-15.0 [facility] Comment on above: Performed By: #### P TT, BMP #### [address] Calcium [Mass/Vol] 9.3 mg/dL Normal 8.6-10.3 [facility] Comment on above: Performed By: #### P TT, BMP #### [facility] [address] Chloride [Moles/Vol] 108 mmol/L High 98-107 [facility] Comment on above: Performed By: #### P TT, BMP #### [facility] [address] CO2 [Moles/Vol] 27.1 mmol/L Normal 21.0-31.0 [facility] Comment on above: Performed By: #### P TT, BMP #### [facility] [address] Creatinine [Mass/Vol] 1.00 mg/dL Normal 0.70-1.30 [facility] Comment on above: Performed By: #### P TT, BMP #### [facility] [address] Creatinine Clr Calc Pharmacy 93.04 [facility] Comment on above: Result Comment: PERF ORMED BY: [place] [address] PATHOLOGIST NETWORK OPERATIONS PROJECT MANAGER ANNE MCFARLAND M.D. Performed By: #### P TT, BMP #### [address] GFR/1.73 sq M.predicted MDRD (S/P/Bld) [Vol rate/Area] mL/min/{1.73_m2} [facility] Comment on above: Performed By: #### P TT, BMP #### [facility] [address] Glucose [Mass/Vol] 101 mg/dL High 70-100 [facility] Comment on above: Result Comment: [place] Glucose Reference Range is dependent on time and content of last meal. Glucose of more than 200 mg/dL in a nonstressed, ambulatory subject supports the diagnosis of Diabetes Mellitus. ADA recommended reference range Performed By: #### P TT, BMP #### [facility] [address] Potassium [Moles/Vol] 4.6 mmol/L Normal 3.5-5.1 [facility] Comment on above: Performed By: #### P TT, BMP #### [facility] [address] Sodium [Moles/Vol] 139 mmol/L Normal 136-145 [facility] Comment on above: Performed By: #### P TT, BMP #### [facility] [address] Urea nitrogen [Mass/Vol] 14 mg/dL Normal 7-25 [facility] Comment on above: Performed By: #### P TT, BMP #### [facility] [address] [place] [address] ECG 12 lead ECGon 07-17-2023 ECG 12 lead ECG [facility] [address] [place] [address] Electrocardiograph Report Signed Patient: Robert Smiley MR#: [id number] : 1960 Acct:[id number] Age/Sex: 62 / M ADM Date: 07/17/23 Loc: Room: [address] [place] [address] Type: DIS IN Attending Dr: Apolinar Dela Cruz DO Ordering Provider: Mendoza Jung MD Date of Service: 07/17/2308/06/699 ECG/ECG 12 lead ECG: chest pain Copies to: Test Reason : Blood Pressure : / mmHG Vent. Rate : 078 BPM Atrial Rate : 078 BPM P-R Int : 150 ms QRS Dur : 088 ms QT Int : 362 ms P-R-T Axes : 048 051 002 degrees QTc Int : 412 ms Normal sinus rhythm Normal ECG No previous ECGs available Confirmed by Gatito Harp ([id number]) on 07/19/2023 11:03:49 PM Referred By: Electronically Signed By:Gatito Harp Transcribed By: MUS Signed By Gatito Harp MD 07/19/23 6337 Normal [facility] Partial Thromboplastin Timeo n 07-17-2023 aPTT Coag (Bld) [Time] 53.6 s High 25.1-36.5 [facility] Comment on above: Result Comment: A he matocrit value greater than 55% may lead to inaccurate results in coagulation testing. Patients having hematocrit values >55% require a special collection tube for coagulation studies. Please contact the laboratory at [phone] for redraw instructions. PERFORMED BY: [phone] PATHOLOGIST NETWORK OPERATIONS PROJECT MANAGER ANNE MCFARLAND M.D. Performed By: #### P TT #### [address] aPTT Coag (Bld) [Time] 40.3 s High 25.1-36.5 [facility] Comment on above: Result Comment: A he matocrit value greater than 55% may lead to inaccurate results in coagulation testing. Patients having hematocrit values >55% require a special collection tube for coagulation studies. Please contact the laboratory at [phone] for redraw instructions. PERFORMED BY: [place] [phone] PATHOLOGIST NETWORK OPERATIONS PROJECT MANAGER ANNE MCFARLAND M.D. Performed By: #### H S TROP #### [address] aPTT Coag (Bld) [Time] 37.5 s High 25.1-36.5 [facility] Comment on above: Result Comment: A he matocrit value greater than 55% may lead to inaccurate results in coagulation testing. Patients having hematocrit values >55% require a special collection tube for coagulation studies. Please contact the laboratory at [phone] for redraw instructions. PERFORMED BY: [phone] PATHOLOGIST NETWORK OPERATIONS PROJECT MANAGER ANNE MCFARLAND M.D. Performed By: #### P TT, BMP #### [address] Troponin I High Sensitivityo n 07-17-2023 Troponin I High Sensitivity 4598.0 pg/mL Off scale high 0.0-20.0 [facility] Comment on above: Result Comment: Crit ical Result : Called to and read back by: VISHNU CASEY at: 07/17/2023 12:59:53 by:MLG PERFORMED BY: [place] [id number] PATHOLOGIST NETWORK OPERATIONS PROJECT MANAGER ANNE MCFARLAND M.D. Performed By: #### H S TROP #### [place] [id number] [place] Troponin I High Sensitivity 2325.9 pg/mL Off scale high 0.0-20.0 [facility] Comment on above: Result Comment: Crit ical Result : Called to and read back by: OG CARTER at: 07/17/2023 10:25:16 by:[id number] PERFORMED BY: [place] [phone] PATHOLOGIST NETWORK OPERATIONS PROJECT MANAGER ANNE MCFARLAND M.D. Performed By: #### H S TROP #### [place] [id number] [place] Troponin I High Sensitivity 1532.1 pg/mL Off scale high 0.0-20.0 [facility] Comment on above: Result Comment: Crit ical Result : Called to and read back by: OG CARTER at: 07/17/2023 09:08:15 by:MLG PERFORMED BY: [place] [phone] PATHOLOGIST NETWORK OPERATIONS PROJECT MANAGER ANNE MCFARLAND M.D. Performed By: #### H S TROP #### [place] [id number] [place] Troponin I High Sensitivity 859.5 pg/mL Off scale high 0.0-20.0 [facility] Comment on above: Result Comment: Crit ical Result : Called to and read back by: ZOHRA BRITT at: 07/17/2023 06:31:22 by:[id number] PERFORMED BY: [place] [id number] PATHOLOGIST NETWORK OPERATIONS PROJECT MANAGER ANNE MCFARLAND M.D. Performed By: #### H S TROP #### [facility] [address] CBC AUTO DIFFon 07-13-2022 BASO # 0.0 103/ul Normal 0.0-0.1 [facility] Comment on above: Performed By: #### C BC #### [facility] [address] [place] [address] [address] Jurgen Nunn Basophils/100 WBC (Bld) 0.6 % Normal 0.2-2.0 [facility] Comment on above: Performed By: #### C BC #### [facility] [address] [place] [address] [address] Jurgen Nunn EO # 0.1 103/ul Normal 0.0-0.7 [facility] Comment on above: Performed By: #### C BC #### [facility] [address] [place] [address] Dr. Jurgen Nunn Eosinophils/100 WBC (Bld) 1.4 % Normal 0.9-7.0 [facility] Comment on above: Performed By: #### C BC #### [facility] [address] [place] [address] Dr. Jurgen Nunn Erythrocyte distribution width (RBC) [Ratio] 13.3 % Normal 11.0-15.0 [facility] Comment on above: Performed By: #### C BC #### [facility] [address] [place] [address] Dr. Jurgen Nunn Hematocrit (Bld) [Volume fraction] 49.5 % Normal 42.0-54.0 [facility] Comment on above: Performed By: #### C BC #### [facility] [address] [place] [address] [address] Jurgen Nunn Hemoglobin (Bld) [Mass/Vol] 16.7 g/dL Normal 14.0-18.0 [facility] Comment on above: Performed By: #### C BC #### [facility] [address] [place] [address] Dr. Jurgen Nunn IG # 0.05 10e3/ul Critically high 0.00-0.03 [facility] Comment on above: Performed By: #### C BC #### [facility] [address] [place] [address] Dr. Jurgen Nunn IG % 0.8 % Critically high 0.0-0.5 [facility] Comment on above: Performed By: #### C BC #### [facility] [address] [place] [address] Dr. Jurgen Nunn LYMPH # 2.2 103/ul Normal 1.2-3.8 [facility] Comment on above: Performed By: #### C BC #### [facility] [address] [place] [address] Dr. Jurgen Nunn Lymphocytes/100 WBC (Bld) 34.1 % Normal 20.5-60.0 [facility] Comment on above: Performed By: #### C BC #### [facility] [address] [place] [address] Dr. Jurgen Nunn MANUAL DIFF REQ NO Normal [facility] Comment on above: Performed By: #### C BC #### [facility] [address] [place] [address] Dr. Jurgen Nunn MCH (RBC) [Entitic mass] 29.9 pg Normal 25.9-34.0 [facility] Comment on above: Performed By: #### C BC #### [facility] [address] [place] [address] Dr. Jurgen Nunn MCHC (RBC) [Mass/Vol] 33.7 g/dL Normal 29.9-35.2 [facility] Comment on above: Performed By: #### C BC #### [facility] [address] [place] [address] Dr. Jurgen Nunn MCV (RBC) [Entitic vol] 88.7 fL Normal 80.0-94.0 [facility] Comment on above: Performed By: #### C BC #### [facility] [address] [place] [address] Dr. Jurgen Nunn MONO # 0.6 103/ul Normal 0.3-0.8 [facility] Comment on above: Performed By: #### C BC #### [facility] [address] [place] [address] [address] Jurgen Nunn Monocytes/100 WBC (Bld) 8.8 % Normal 1.7-12.0 [facility] Comment on above: Performed By: #### C BC #### [facility] [address] [place] [address] Dr. Jurgen Nunn NEUT # 3.5 103/ul Normal 1.4-6.5 [facility] Comment on above: Performed By: #### C BC #### [facility] [address] [place] [address] Dr. Jurgen Nunn Neutrophils/100 WBC (Bld) 54.3 % Normal 43.0-75.0 [facility] Comment on above: Performed By: #### C BC #### [facility] [address] [place] [address] Dr. Jurgen Nunn Platelet mean volume (Bld) [Entitic vol] 10.1 fL Normal 9.5-13.5 [facility] Comment on above: Performed By: #### C BC #### [facility] [address] [place] [address] Dr. Jurgen Nunn PLT 227 103/ul Normal 150-450 [facility] Comment on above: Performed By: #### C BC #### [facility] [address] [place] [address] Dr. Jurgen uNnn RBC 5.58 106/ul Normal 4.70-6.10 [facility] Comment on above: Performed By: #### C BC #### [facility] [address] [place] [address] Dr. Jurgen Nunn WBC 6.5 103/ul Normal 4.0-11.0 [facility] Comment on above: Performed By: #### C BC #### [facility] [address] [place] [address] Dr. Jurgen Nunn PROF 14(COMP METB)on 023 Albumin [Mass/Vol] 3.7 g/dL Normal 3.4-5.0 [facility] Comment on above: Performed By: #### T 4, CMP, TSH #### [facility] [address] [place] [address] [address] Jurgen Nunn Albumin/Globulin [Mass ratio] 1.0 {ratio} Normal [facility] Comment on above: Performed By: #### T 4, CMP, TSH #### [facility] [address] [place] [address] [address] Jurgen Nunn ALP [Catalytic activity/Vol] 81 U/L Normal 46-116 [facility] Comment on above: Performed By: #### T 4, CMP, TSH #### [facility] [address] [place] [address] [address] Jurgen Nunn ALT [Catalytic activity/Vol] 21 U/L Normal 16-63 [facility] Comment on above: Performed By: #### T 4, CMP, TSH #### [facility] [address] [place] [address] [address] Jurgen Nunn Anion gap [Moles/Vol] 9.4 mmol/L Normal [facility] Comment on above: Performed By: #### T 4, CMP, TSH #### [facility] [address] [place] [address] [address] Jurgen Nunn AST [Catalytic activity/Vol] 18 U/L Normal 15-37 [facility] Comment on above: Performed By: #### T 4, CMP, TSH #### [facility] [address] [place] [address] [address] Jurgen Nunn Bilirubin [Mass/Vol] 0.6 mg/dL Normal 0.2-1.0 [facility] Comment on above: Performed By: #### T 4, CMP, TSH #### [facility] [address] [place] [address] [address] Jurgen Nunn Calcium [Mass/Vol] 9.0 mg/dL Normal 8.5-10.1 [facility] Comment on above: Performed By: #### T 4, CMP, TSH #### [facility] [address] [place] [address] [address] Jurgen Nunn Chloride [Moles/Vol] 107 mmol/L Normal 98-107 [facility] Comment on above: Performed By: #### T 4, CMP, TSH #### [facility] [address] [place] [address] [address] Jurgen Nunn CO2 [Moles/Vol] 29.0 mmol/L Normal 21.0-32.0 [facility] Comment on above: Performed By: #### T 4, CMP, TSH #### [facility] [address] [place] [address] [address] Jurgen Nunn Creatinine [Mass/Vol] 1.02 mg/dL Normal 0.70-1.30 [facility] Comment on above: Performed By: #### T 4, CMP, TSH #### [facility] [address] [place] [address] Dr. Jurgen Nunn EGFR-AF [facility] >60 Normal >=60 [facility] Comment on above: Performed By: #### T 4, CMP, TSH #### [facility] [address] [place] [address] [address] Jurgen Nunn EGFR-NON AF [facility] >60 Normal >=60 [facility] Comment on above: Performed By: #### T 4, CMP, TSH #### [facility] [address] [place] [address] Dr. Jurgen Nunn Globulin (S) [Mass/Vol] 3.6 g/dL Normal [facility] Comment on above: Performed By: #### T 4, CMP, TSH #### [facility] [address] [place] [address] [address] Jurgen Nunn Glucose [Mass/Vol] 100 mg/dL Normal 74-106 [facility] Comment on above: Performed By: #### T 4, CMP, TSH #### [facility] [address] [place] [address] [address] Jurgen Nunn Potassium [Moles/Vol] 4.4 mmol/L Normal 3.5-5.1 [facility] Comment on above: Performed By: #### T 4, CMP, TSH #### [facility] [address] [place] [address] [address] Jurgen Nunn Protein [Mass/Vol] 7.3 g/dL Normal 6.4-8.2 [facility] Comment on above: Performed By: #### T 4, CMP, TSH #### [facility] [address] [place] [address] Dr. Jurgen Nunn Sodium [Moles/Vol] 141 mmol/L Normal 136-145 [facility] Comment on above: Performed By: #### T 4, CMP, TSH #### [facility] [address] [place] [address] Dr. Jurgen Nunn Urea nitrogen [Mass/Vol] 13.0 mg/dL Normal 7.0-18.0 [facility] Comment on above: Performed By: #### T 4, CMP, TSH #### [facility] [address] [place] [address] Dr. Jurgen Nunn Urea nitrogen/Creatinine [Mass ratio] 12.7 mg/mg Normal [facility] Comment on above: Performed By: #### T 4, CMP, TSH #### [facility] [address] [place] [address] Dr. Jurgen Nunn T4on 07-13-2022 T4 [Mass/Vol] 9.50 ug/dL Normal 4.50-12.10 [facility] Comment on above: Performed By: #### T 4, CMP, TSH #### [facility] [address] [place] [address] Dr. Jurgen Nunn TSHon 07-13-2022 TSH 1.890 uIU/mL Normal 0.358-3.740 [facility] Comment on above: Performed By: #### T 4, CMP, TSH #### [facility] [address] [place] [address] Dr. Jurgen Nunn PSA, FREE AND TOTAL RATIOon 04-23-2022 % Free PSA 14.0 % Normal [facility] Comment on above: Result Comment: The [...] men. Performed By: #### P SAFREE #### [facility] [address] [place] [address] [address] Jurgen Nunn Prostate specific Ag [Mass/Vol] 5.3 ng/mL Critically high 0.0-4.0 [facility] Comment on above: Result Comment: Sylvester LOWE methodology. . According to the [place] [employer], Serum PSA should decrease and [...] disease. Performed By: #### P SAFREE #### [facility] [address] [place] [address] [address] Jurgen Nunn PSA, Free 0.74 ng/mL Normal N/A [facility] Comment on above: Result Comment: Sylvester rodriguez ECLRAJESH methodology. Performed By: #### P SAFREE #### [facility] [address] [place] [address] [address] Jurgen Nunn Creatinine (Bld) [Mass/Vol]O rdered By: Cora Lee on 12-07-2021 Creatinine [Mass/Vol] 1.0 mg/dL 0.6-1.3 [facility] Comment on above: ER/ESD physician is notified/shown all ISTAT results. Critical values may be confirmed by laboratory testing if deemed necessary by ER attending doctor. No Panel InformationOrdered By: Cora Lee on 12-07-2021 POC Estimated GFR > 60 [facility] Comment on above: GFR estimated refere nce range: According to KDOQI guidelines, <60 ml/min/1.73m2 is sufficient to diagnose a patient with chronic kidney disease. POC Estimated GFR Non- Amer > 60 [facility] PSA, FREE AND TOTAL RATIOon 10-29-2021 % Free PSA 13.5 % Normal [facility] Comment on above: Result Comment: [...] men. Performed By: #### P SAFREE #### [facility] [address] [place] [address] Dr. Jurgen Nunn Prostate specific Ag [Mass/Vol] 4.9 ng/mL Critically high 0.0-4.0 [facility] Comment on above: Result Comment: Sylvester rodriguez ECLIA methodology. . According to the [place] [employer], Serum PSA should decrease and [...] disease. Performed By: #### P SAFREE #### [facility] [address] [place] [address] Dr. Jurgen Nunn PSA, Free 0.66 ng/mL Normal N/A [facility] Comment on above: Result Comment: Sylvester rodriguez ECLIA methodology. Performed By: #### P SAFREE #### [facility] [address] [place] [address] Dr. Jurgen Nunn CBC AUTO DIFFon 08-20-2021 BASO # 0.0 103/ul Normal 0.0-0.1 [facility] Comment on above: Performed By: #### C BC #### [facility] [address] [address] [address] Jurgen Nunn Basophils/100 WBC (Bld) 0.4 % Normal 0.2-2.0 [facility] Comment on above: Performed By: #### C BC #### [facility] [address] [place] [address] Dr. Jurgen Nunn EO # 0.1 103/ul Normal 0.0-0.7 [facility] Comment on above: Performed By: #### C BC #### [facility] [address] [place] [address] Dr. Jurgen Nunn Eosinophils/100 WBC (Bld) 1.5 % Normal 0.9-7.0 [facility] Comment on above: Performed By: #### C BC #### [facility] [address] [place] [address] Dr. Jurgen Nunn Erythrocyte distribution width (RBC) [Ratio] 13.3 % Normal 11.0-15.0 [facility] Comment on above: Performed By: #### C BC #### [facility] [address] [place] [address] Dr. Jurgen Nunn Hematocrit (Bld) [Volume fraction] 49.4 % Normal 42.0-54.0 [facility] Comment on above: Performed By: #### C BC #### [facility] [address] [place] [address] Dr. Jurgen Nunn Hemoglobin (Bld) [Mass/Vol] 16.7 g/dL Normal 14.0-18.0 [facility] Comment on above: Performed By: #### C BC #### [facility] [address] [place] [address] Dr. Jurgen Nunn IG # 0.06 10e3/ul Critically high 0.00-0.03 [facility] Comment on above: Performed By: #### C BC #### [facility] [address] [place] [address] Dr. Jurgen Nunn IG % 0.8 % Critically high 0.0-0.5 [facility] Comment on above: Performed By: #### C BC #### [facility] [address] [place] [address] Dr. Jurgen Nunn LYMPH # 2.5 103/ul Normal 1.2-3.8 [facility] Comment on above: Performed By: #### C BC #### [facility] [address] [place] [address] Dr. Jurgen Nunn Lymphocytes/100 WBC (Bld) 35.1 % Normal 20.5-60.0 [facility] Comment on above: Performed By: #### C BC #### [facility] [address] [place] [address] Dr. Jurgen Nunn MANUAL DIFF REQ NO Normal [facility] Comment on above: Performed By: #### C BC #### [facility] [address] [place] [address] Dr. Jurgen Nunn MCH (RBC) [Entitic mass] 30.0 pg Normal 25.9-34.0 [facility] Comment on above: Performed By: #### C BC #### [facility] [address] [place] [address] Dr. Jurgen Nunn MCHC (RBC) [Mass/Vol] 33.8 g/dL Normal 29.9-35.2 [facility] Comment on above: Performed By: #### C BC #### [facility] [address] [place] [address] Dr. Jurgen Nunn MCV (RBC) [Entitic vol] 88.7 fL Normal 80.0-94.0 [facility] Comment on above: Performed By: #### C BC #### [facility] [address] [place] [address] Dr. Jurgen Nunn MONO # 0.6 103/ul Normal 0.3-0.8 [facility] Comment on above: Performed By: #### C BC #### [facility] [address] [place] [address] Dr. Jurgen Nunn Monocytes/100 WBC (Bld) 7.7 % Normal 1.7-12.0 [facility] Comment on above: Performed By: #### C BC #### [facility] [address] [place] [address] Dr. Jurgen Nunn NEUT # 3.9 103/ul Normal 1.4-6.5 [facility] Comment on above: Performed By: #### C BC #### [facility] [address] [place] [address] Dr. Jurgen Nunn Neutrophils/100 WBC (Bld) 54.5 % Normal 43.0-75.0 [facility] Comment on above: Performed By: #### C BC #### [facility] [address] [place] [address] Dr. Jurgen Nunn Platelet mean volume (Bld) [Entitic vol] 10.6 fL Normal 9.5-13.5 [facility] Comment on above: Performed By: #### C BC #### [facility] [address] [place] [address] Dr. Jurgen Nunn PLT 246 103/ul Normal 150-450 [facility] Comment on above: Performed By: #### C BC #### [facility] [address] [place] [address] Dr. Jurgen Nunn RBC 5.57 106/ul Normal 4.70-6.10 [facility] Comment on above: Performed By: #### C BC #### [facility] [address] [place] [address] Dr. Jurgen Nunn WBC 7.2 103/ul Normal 4.0-11.0 [facility] Comment on above: Performed By: #### C BC #### [facility] [address] [place] [address] Dr. Jurgen Nunn LIPID PROFILEon 08-20-2021 CHOL-HDL RATIO NORM SEE BELOW Normal [facility] Comment on above: Result Comment: 3.3 - 4.4 LOW RISK 4.4 - 7.1 AVERAGE RISK 7.1 - 11.0 MODERATE RISK >11.0 HIGH RISK Performed By: #### C MP, LIPID #### [facility] [address] [place] [address] Dr. Jurgen Nunn Cholesterol [Mass/Vol] 281 mg/dL Critically high <=200 [facility] Comment on above: Performed By: #### C MP, LIPID #### [facility] [address] [address] [address] Jurgen Nunn Cholesterol in HDL [Mass/Vol] 66 mg/dL Critically high 40-60 [facility] Comment on above: Performed By: #### C MP, LIPID #### [facility] [address] [address] [address] Jurgen Nunn Cholesterol in LDL [Mass/Vol] 196.2 mg/dL Normal [facility] Comment on above: Performed By: #### C MP, LIPID #### [facility] [address] [address] [address] Jurgen Nunn Cholesterol.total/Chol esterol in HDL [Mass ratio] 4.3 {ratio} Normal [facility] Comment on above: Performed By: #### C MP, LIPID #### [facility] [address] [address] [address] Jurgen Nunn HDL NORMAL > or = 60 mg/dl - LOW CARDIOVASCULAR RISK <40 mg/dl - HIGH CARDIOVASCULAR RISK Normal [facility] Comment on above: Performed By: #### C MP, LIPID #### [facility] [address] [place] [address] Dr. Jurgen Nunn LDL CALC NORMAL SEE BELOW Normal [facility] Comment on above: Result Comment: <100 mg/dl OPTIMAL 100 - 129 mg/dl NEAR OR ABOVE OPTIMAL 130 - 159 mg/dl BORDERLINE HIGH 160 - 189 mg/dl HIGH >190 mg/dl VERY HIGH Performed By: #### C MP, LIPID #### [facility] [address] [address] [address] Jrugen Nunn Triglyceride [Mass/Vol] 94 mg/dL Normal <=150 [facility] Comment on above: Performed By: #### C MP, LIPID #### [facility] [address] [address] [address] Jurgen Nunn VLDL CALC 18.8 mg/dL Normal [facility] Comment on above: Performed By: #### C MP, LIPID #### [facility] [address] [address] [address] Jurgen Nunn PROF 14(COMP METB)on 022 Albumin [Mass/Vol] 3.7 g/dL Normal 3.4-5.0 [facility] Comment on above: Performed By: #### C MP, LIPID #### [facility] [address] [place] [address] Dr. Jurgen Nunn Albumin/Globulin [Mass ratio] 0.9 {ratio} Normal [facility] Comment on above: Performed By: #### C MP, LIPID #### [facility] [address] [address] [address] Jurgen Nunn ALP [Catalytic activity/Vol] 89 U/L Normal 46-116 [facility] Comment on above: Performed By: #### C MP, LIPID #### [facility] [address] [place] [address] Dr. Jurgen Nunn ALT [Catalytic activity/Vol] 25 U/L Normal 16-63 [facility] Comment on above: Performed By: #### C MP, LIPID #### [facility] [address] [place] [address] Dr. Jurgen Nunn Anion gap [Moles/Vol] 14.3 mmol/L Normal [facility] Comment on above: Performed By: #### C MP, LIPID #### [facility] [address] [place] [address] Dr. Jurgen Nunn AST [Catalytic activity/Vol] 16 U/L Normal 15-37 [facility] Comment on above: Performed By: #### C MP, LIPID #### [facility] [address] [place] [address] Dr. Jurgen Nunn Bilirubin [Mass/Vol] 0.6 mg/dL Normal 0.2-1.3 [facility] Comment on above: Performed By: #### C MP, LIPID #### [facility] [address] [place] [address] Dr. Jurgen Nunn Calcium [Mass/Vol] 8.6 mg/dL Normal 8.5-10.1 [facility] Comment on above: Performed By: #### C MP, LIPID #### [facility] [address] [place] [address] Dr. Jurgen Nunn Chloride [Moles/Vol] 105 mmol/L Normal 98-107 [facility] Comment on above: Performed By: #### C MP, LIPID #### [facility] [address] [address] [address] Jurgen Nunn CO2 [Moles/Vol] 24.7 mmol/L Normal 22.0-30.0 [facility] Comment on above: Performed By: #### C MP, LIPID #### [facility] [address] [address] [address] Jurgen Nunn Creatinine [Mass/Vol] 0.97 mg/dL Normal 0.66-1.25 [facility] Comment on above: Performed By: #### C MP, LIPID #### [facility] [address] [place] [address] Dr. Jurgen Nunn EGFR-AF [facility] >60 Normal >=60 [facility] Comment on above: Performed By: #### C MP, LIPID #### [facility] [address] [place] [address] Dr. Jurgen Nunn EGFR-NON AF [facility] >60 Normal >=60 [facility] Comment on above: Performed By: #### C MP, LIPID #### [facility] [address] [address] [address] Jurgen Nunn Globulin (S) [Mass/Vol] 4.0 g/dL Normal [facility] Comment on above: Performed By: #### C MP, LIPID #### [facility] [address] [place] [address] Dr. Jurgen Nunn Glucose [Mass/Vol] 91 mg/dL Normal 74-106 [facility] Comment on above: Performed By: #### C MP, LIPID #### [facility] [address] [address] [address] Jurgen Nunn Potassium [Moles/Vol] 4.0 mmol/L Normal 3.4-5.0 [facility] Comment on above: Performed By: #### C MP, LIPID #### [facility] [address] [address] [address] Jurgen Nunn Protein [Mass/Vol] 7.7 g/dL Normal 6.1-8.2 [facility] Comment on above: Performed By: #### C MP, LIPID #### [facility] [address] [address] [address] Jurgen Nunn Sodium [Moles/Vol] 140 mmol/L Normal 137-145 [facility] Comment on above: Performed By: #### C MP, LIPID #### [facility] [address] [address] [address] Jurgen Nunn Urea nitrogen [Mass/Vol] 19.0 mg/dL Critically high 7.0-18.0 [facility] Comment on above: Performed By: #### C MP, LIPID #### [facility] [address] [address] [address] Jurgen Nunn Urea nitrogen/Creatinine [Mass ratio] 19.6 mg/mg Normal [facility] Comment on above: Performed By: #### C MP, LIPID #### [facility] [address] [address] [address] Jurgen Nunn CBC W/DIFFon 04-25-2018 ABS BASOPHILS 0.0 10*3/uL Normal 0.0-0.2 [facility] Comment on above: Performed By: #### 5 0103 #### [facility] [address] ABS IMM GRANS 0.0 10*3/uL Normal 0.0-0.2 [facility] Comment on above: Performed By: #### 5 0103 #### [facility] [address] ABS NEUTROPHILS 3.6 10*3/uL Normal 1.6-7.6 [facility] Comment on above: Performed By: #### 5 0103 #### [facility] [address] Basophils/100 WBC (Bld) 0.5 % Normal 0.0-1.0 [facility] Comment on above: Performed By: #### 5 0103 #### [facility] [address] Eosinophils (Bld) [#/Vol] 0.1 10*3/uL Normal 0.0-0.5 [facility] Comment on above: Performed By: #### 5 0103 #### [facility] [address] Eosinophils/100 WBC (Bld) 1.2 % Normal 0.0-6.0 [facility] Comment on above: Performed By: #### 3 #### [facility] [address] Erythrocyte distribution width (RBC) [Ratio] 13.2 % Normal 11.5-15.0 [facility] Comment on above: Performed By: #### 3 #### [facility] [address] Hematocrit (Bld) [Volume fraction] 48.4 % Normal 39.0-50.0 [facility] Comment on above: Performed By: #### 5 3 #### [facility] [address] Hemoglobin (Bld) [Mass/Vol] 16.1 g/dL Normal 13.0-17.0 [facility] Comment on above: Performed By: #### 5 3 #### [facility] [address] IMMATURE GRANS 0.7 % Normal 0.0-1.0 [facility] Comment on above: Performed By: #### 5 0103 #### [facility] [address] [place] [address], [place] Lymphocytes (Bld) [#/Vol] 1.5 10*3/uL Normal 1.2-4.0 [facility] Comment on above: Performed By: #### 5 3 #### [facility] [address] [facility] [place] [address], [place] Lymphocytes/100 WBC (Bld) 25.9 % Normal 20.0-45.0 [facility] Comment on above: Performed By: #### 5 0103 #### [facility] [address] [facility] [address], [place] MCH (RBC) [Entitic mass] 29.8 pg Normal 27.0-33.0 [facility] Comment on above: Performed By: #### 5 0103 #### [facility] [address] [facility] [place] [address], [place] MCHC (RBC) [Mass/Vol] 33.3 g/dL Normal 32.0-35.0 [facility] Comment on above: Performed By: #### 5 0103 #### [facility] [address] [facility] [place] [address], [place] MCV (RBC) [Entitic vol] 89.6 fL Normal 82.0-98.0 [facility] Comment on above: Performed By: #### 5 0103 #### [facility] [address] [place] [address], [place] Monocytes (Bld) [#/Vol] 0.5 10*3/uL Normal 0.1-1.0 [facility] Comment on above: Performed By: #### 5 0103 #### [facility] [address] [place] [address], [place] MONOS 9.3 % Normal 5.0-12.0 [facility] Comment on above: Performed By: #### 5 0103 #### [facility] [address] [facility] [address], [place] Neutrophils/100 WBC (Bld) 62.4 % Normal 40.0-72.0 [facility] Comment on above: Performed By: #### 5 0103 #### [facility] [address] [facility] [address], [place] Nucleated RBC/100 WBC (Bld) [Ratio] 0 % Normal 0-0 [facility] Comment on above: Performed By: #### 5 0103 #### [facility] [address] [place] [address], [place] PLAT CNT 230 10*3/uL Normal 150-400 [facility] Comment on above: Performed By: #### 5 0103 #### [facility] [address] [facility]. [address] RBC (Bld) [#/Vol] 5.40 10*6/uL Normal 4.20-5.70 [facility] Comment on above: Performed By: #### 5 0103 #### [facility] [address] [facility]. [address] WBC (Bld) [#/Vol] 5.83 10*3/uL Normal 4.00-10.60 [facility] Comment on above: Performed By: #### 5 0103 #### [facility] [address] [facility]. [address] COMP METABOLIC PANELon 04-25 Albumin [Mass/Vol] 4.3 g/dL Normal 3.5-5.7 [facility] Comment on above: Performed By: #### 0 0121, 49141 #### [facility] [address] [facility]. [address] ALKALINE PHOSPH 86 IU/L Normal 34-104 [facility] Comment on above: Performed By: #### 0 0121, 35030 #### [facility] [address] [facility]. [address] ALT [Catalytic activity/Vol] 18 U/L Normal 7-52 [facility] Comment on above: Performed By: #### 0 0121, [id number] #### [facility] [address] AST [Catalytic activity/Vol] 18 U/L Normal 13-39 [facility] Comment on above: Performed By: #### 0 0121, [id number] #### [facility] [address] [place] [address], [place] Bilirubin [Mass/Vol] 0.8 mg/dL Normal 0.3-1.0 [facility] Comment on above: Performed By: #### 0 0121, 95935 #### [facility] [address] [place] [address], [place] Calcium [Mass/Vol] 9.6 mg/dL Normal 8.6-10.3 [facility] Comment on above: Performed By: #### 0 0121, 26057 #### [facility] [address] [place] [address], [place] Chloride [Moles/Vol] 103 mmol/L Normal 98-107 [facility] Comment on above: Performed By: #### 0 012, 23949 #### [facility] [address] [place] [address], [place] CO2 [Moles/Vol] 31 mmol/L Normal 21-31 [facility] Comment on above: Performed By: #### 0 012, 53691 #### [facility] [address] [place] [address], [place] Creatinine [Mass/Vol] 1.06 mg/dL Normal 0.70-1.30 [facility] Comment on above: Performed By: #### 0 012, 47470 #### [facility] [address] [place] [address], [place] GFR/1.73 sq M predicted among blacks MDRD (S/P/Bld) [Vol rate/Area] mL/min/{1.73_m2} Normal >60 [facility] Comment on above: Performed By: #### 0 012, 36350 #### [facility] [address] [place] [address], [place] GFR/1.73 sq M predicted among non-blacks MDRD (S/P/Bld) [Vol rate/Area] mL/min/{1.73_m2} Normal >60 [facility] Comment on above: Performed By: #### 0 0121, 16021 #### [facility] [address] [place] [address], [place] Glucose [Mass/Vol] 101 mg/dL High 70-100 [facility] Comment on above: Performed By: #### 0 0121, 15269 #### [facility] [address] [place] [address], [place] Potassium [Moles/Vol] 4.3 mmol/L Normal 3.5-5.1 [facility] Comment on above: Performed By: #### 0 0121, 54179 #### [facility] [address] [place] [address], [place] Protein [Mass/Vol] 7.2 g/dL Normal 6.0-8.3 [facility] Comment on above: Performed By: #### 0 0121, 07884 #### [facility] [address] [place] [address], [place] Sodium [Moles/Vol] 138 mmol/L Normal 136-145 [facility] Comment on above: Performed By: #### 0 0121, 08214 #### [facility] [address] [place] [address], [place] Urea nitrogen [Mass/Vol] 12 mg/dL Normal 7-25 [facility] Comment on above: Performed By: #### 0 0121, 23577 #### [facility] [address] [place] [address], [place] LIPID PROFILEon 04-25-2018 Cholesterol [Mass/Vol] 143 mg/dL Normal 120-200 [facility] Comment on above: Result Comment: CHOL ESTEROL REFERENCE RANGE: 20 YEARS AND OLDER CARDIOVASCULAR RISK Less than 200 mg/dl Low Risk 200 to 239 mg/dl Borderline Risk 240 mg/dl and greater High Risk Performed By: #### 0 0121, 46241 #### [facility] [address] [place] [address], [place] Cholesterol in HDL [Mass/Vol] 57 mg/dL Normal 23-92 [facility] Comment on above: Result Comment: Slig ht variation in normal range could be due to gender and/or age. HDL CHOLESTEROL REFERENCE RANGE: 20 years and older Cardiovascular Risk > or =60 mg/dL Desirable 40 TO 59 mg/dL Low Risk <40 mg/dL High Risk Performed By: #### 0 0121, 42883 #### [facility] [address] [facility] [place] [address], [place] Cholesterol in LDL [Mass/Vol] 72 mg/dL Normal 0-130 [facility] Comment on above: Result Comment: LDL IS A CALCULATION LDL IS ONLY VALID IF THE TRIG IS LESS THAN 400. Performed By: #### 0 0121, 15594 #### [facility] [address] [place] [address], [place] Cholesterol.total/Chol esterol in HDL [Mass ratio] 2.5 {ratio} Normal .0-4.5 [facility] Comment on above: Performed By: #### 0 0121, 01525 #### [facility] [address] [place] [address], [place] NON-HDL CHOLESTEROL 86 mg/dL Normal [facility] Comment on above: Performed By: #### 0 0121, 16689 #### [facility] [address] [place] [address], [place] Triglyceride [Mass/Vol] 71 mg/dL Normal 40-149 [facility] Comment on above: Result Comment: TRIG LYCERIDE REFERENCE RANGE: 20 YEARS AND OLDER CARDIOVASCULAR RISK LESS THAN 150 mg/dl LOW RISK 150 TO 199 mg/dl BORDERLINE RISK 200 mg/dl AND GREATER HIGH RISK Performed By: #### 0 0121, 29866 #### [facility] [address] [place] [address], [place] VLDL CHOL 14 mg/dL Normal 0-40 [facility] Comment on above: Performed By: #### 0 0121, 13013 #### [facility] [address] [place] [address], [place] Vital Signs Date Time Vital Sign Value Performing Clinician Facility 11-21-2024 13:17040 Body height 172.7 cm Leonard Ramirez MD Work Phone: [facility] 11-21-2024 13:17040 Body mass index (BMI) [Ratio] 34.94 kg/m2 Leonard Ramirez MD Work Phone: [facility] 11-21-2024 13:17040 Body weight 104.24 kg Leonard Ramirez MD Work Phone: [facility] 11-21-2024 13:17-0400 Diastolic blood pressure 86 mm[Hg] Leonard Ramirez MD Work Phone: [facility] 11-21-2024 13:17-0400 Heart rate 76 /min Leonard Ramirez MD Work Phone: [facility] 11-21-2024 13:17-0400 Systolic blood pressure 130 mm[Hg] Leonard Ramirez MD Work Phone: [facility] 10-18-2024 13:28040 Body height 172.[address] 10-18-2024 13:-040 Body mass index (BMI) [Ratio] 32.39 kg/m2 [address] 10-18-2024 13:040 Body weight 96.[address] 10-18-2024 13:28-0400 Diastolic blood pressure 68 mm[Hg] [address] 10-18-2024 13:28-0400 Systolic blood pressure 114 mm[Hg] Shasta 2 [facility] 05-30-2024 11:05-0500 Blood Pressure Location Cora Lue [facility] 05-30-2024 11:05-0500 Diastolic blood pressure 76 mm[Hg] Cora Lue [facility] 05-30-2024 11:05-0500 Heart rate 80 /min Cora Lue [facility] 05-30-2024 11:05-0500 Systolic blood pressure 132 mm[Hg] Cora Lue [facility] 03-14-2024 14:58-0400 Body height 172.7 cm Leonard Ramirez MD Work Phone: [facility] 03-14-2024 14:58-0400 Body mass index (BMI) [Ratio] 32.39 kg/m2 Leonard Ramirez MD Work Phone: [facility] 03-14-2024 14:58-0400 Body weight 96.62 kg Leonard Ramirez MD Work Phone: [facility] 03-14-2024 14:58-0400 Diastolic blood pressure 64 mm[Hg] Leonard Ramirez MD Work Phone: [facility] 03-14-2024 14:58-0400 Heart rate 78 /min Leonard Ramirez MD Work Phone: [facility] 03-14-2024 14:58-0400 Systolic blood pressure 110 mm[Hg] Leonard aRmirez MD Work Phone: [facility] 09-09-2023 09:03-0400 Diastolic blood pressure 70 mm[Hg] Leonard Ramirez MD Work Phone: [facility] 09-09-2023 09:03-0400 Heart rate 84 /min Leonard Ramirez MD Work Phone: [facility] 09-09-2023 09:03-0400 Systolic blood pressure 118 mm[Hg] Leonard Ramirez MD Work Phone: [facility] 09-09-2023 09:02-0400 Body height 172.7 cm Leonard Ramirez MD Work Phone: [facility] 09-09-2023 09:02-0400 Body mass index (BMI) [Ratio] 32.99 kg/m2 Leonard Ramirez MD Work Phone: [facility] 09-09-2023 09:02-0400 Body weight 98.43 kg Leonard Ramirez MD Work Phone: [facility] 08-25-2023 13:20-0400 Body height 172.7 cm Scar Peck MD Work Phone: [facility] 08-25-2023 13:20-0400 Body mass index (BMI) [Ratio] 32.84 kg/m2 Scar Peck MD Work Phone: [facility] 08-25-2023 13:20-0400 Body temperature 97.5 [degF] Scar Peck MD Work Phone: [facility] 08-25-2023 13:20-0400 Body weight 97.98 kg Scar Peck MD Work Phone: [facility] 08-25-2023 13:20-0400 Diastolic blood pressure 69 mm[Hg] Scar Peck MD Work Phone: [facility] 08-25-2023 13:20-0400 Heart rate 88 /min Scar Peck MD Work Phone: [facility] 08-25-2023 13:20-0400 SaO2% (BldA) [Mass fraction] 98 % Scar Peck MD Work Phone: [facility] 08-25-2023 13:20-0400 Systolic blood pressure 121 mm[Hg] Scar Peck MD Work Phone: [facility] 08-17-2023 11:49-0400 Diastolic blood pressure 70 mm[Hg] Norman Cedeño [facility] 08-17-2023 11:49-0400 Systolic blood pressure 96 mm[Hg] Norman Cedeño [facility] 08-17-2023 11:47-0400 Body height 172.7 cm Norman Cedeño [facility] 08-17-2023 11:47-0400 Body mass index (BMI) [Ratio] 33.94 kg/m2 Norman Cedeño [facility] 08-17-2023 11:47-0400 Body weight 101.24 kg Norman Cedeño [facility] 08-17-2023 11:47-0400 Heart rate 77 /min Norman Cedeño [facility] 08-11-2023 10:30-0400 Body height 172.7 cm Scar Peck MD Work Phone: [facility] 08-11-2023 10:30-0400 Body mass index (BMI) [Ratio] 33.6 kg/m2 Scar Peck MD Work Phone: [facility] 08-11-2023 10:30-0400 Body temperature 96.8 [degF] Scar Peck MD Work Phone: [facility] 08-11-2023 10:30-0400 Body weight 100.25 kg Scar Peck MD Work Phone: [facility] 08-11-2023 10:30-0400 Diastolic blood pressure 81 mm[Hg] Scar Peck MD Work Phone: [facility] 08-11-2023 10:30-0400 Heart rate 106 /min Scar Peck MD Work Phone: [facility] 08-11-2023 10:30-0400 SaO2% (BldA) [Mass fraction] 99 % Scar Peck MD Work Phone: [facility] 08-11-2023 10:30-0400 Systolic blood pressure 105 mm[Hg] Scar Peck MD Work Phone: [facility] 07-31-2023 14:23-0400 Body temperature 97.9 [degF] Juan J Foley MD Work Phone: [facility] 07-31-2023 14:23-0400 Diastolic blood pressure 59 mm[Hg] Juan J Foley MD Work Phone: [facility] 07-31-2023 14:23-0400 Heart rate 82 /min Juan J Foley MD Work Phone: [facility] 07-31-2023 14:23-0400 SaO2% (BldA) [Mass fraction] 98 % Juan J Foley MD Work Phone: [facility] 07-31-2023 14:23-0400 Systolic blood pressure 109 mm[Hg] Juan J Foley MD Work Phone: [facility] 07-31-2023 05:35-0400 Respiratory rate 18 /min Juan J Foley MD Work Phone: [facility] 07-31-2023 05:00-0400 Body mass index (BMI) [Ratio] 35.4 kg/m2 Juan J Foley MD Work Phone: [facility] 07-31-2023 05:00-0400 Body weight 105.6 kg Juan J Foley MD Work Phone: [facility] 07-26-2023 07:14-0400 Body temperature Juan J Og MD Work Phone: [facility] 07-26-2023 07:14-0400 SaO2% (BldA) [Mass fraction] 100 % Juan J Foley MD Work Phone: [facility] 07-26-2023 07:14-0400 SaO2% (BldA) [Mass fraction] Juan J Foley MD Work Phone: [facility] 07-26-2023 06:59-0400 Body temperature Juan J Foley MD Work Phone: [facility] 07-26-2023 06:59-0400 SaO2% (BldA) [Mass fraction] 100 % Juan J Foley MD Work Phone: [facility] 07-25-2023 19:32-0400 Body temperature Juan J Foley MD Work Phone: [facility] 07-25-2023 19:32-0400 SaO2% (BldA) [Mass fraction] 99 % Juan J Foley MD Work Phone: [facility] 07-25-2023 14:55-0400 Body temperature Juan J Foley MD Work Phone: [facility] 07-25-2023 14:55-0400 SaO2% (BldA) [Mass fraction] 100 % Juan J Foley MD Work Phone: [facility] 07-25-2023 11:51-0400 Body temperature Juan J Foley MD Work Phone: [facility] 07-25-2023 11:51-0400 SaO2% (BldA) [Mass fraction] 100 % Juan J Foley MD Work Phone: [facility] 07-25-2023 11:25-0400 Body temperature Juan J Foley MD Work Phone: [facility] 07-25-2023 11:25-0400 SaO2% (BldA) [Mass fraction] 100 % Juan J Foley MD Work Phone: [facility] 07-25-2023 10:48-0400 Body temperature Juan J Foley MD Work Phone: [facility] 07-25-2023 10:48-0400 SaO2% (BldA) [Mass fraction] 100 % Juan J Foley MD Work Phone: [facility] 07-25-2023 10:28-0400 Body temperature Juan J Foley MD Work Phone: [facility] 07-25-2023 10:18-0400 Body temperature Juan J Foley MD Work Phone: [facility] 07-25-2023 10:18-0400 SaO2% (BldA) [Mass fraction] 100 % Juan J Foley MD Work Phone: [facility] 07-25-2023 08:50-0400 Body temperature Juan J Foley MD Work Phone: [facility] 07-19-2023 02:22-0500 Body height 172.7 cm Juan J Foley MD Work Phone: [facility] 05-25-2023 11:13-0500 Blood Pressure Location Cora Jesus [facility] 05-25-2023 11:13-0500 Diastolic blood pressure 86 mm[Hg] Cora Lee [facility] 05-25-2023 11:13-0500 Heart rate 84 /min Cora Lee [facility] 05-25-2023 11:13-0500 Systolic blood pressure 128 mm[Hg] Cora Lue [facility] 10-27-2022 09:33-0400 Blood Pressure Location Cora Lue [facility] 10-27-2022 09:33-0400 Diastolic blood pressure 70 mm[Hg] Cora Lue [facility] 10-27-2022 09:33-0400 Heart rate 75 /min Cora Lue [facility] 10-27-2022 09:33-0400 Systolic blood pressure 125 mm[Hg] Cora Lue [facility] 04-28-2022 11:20-0500 Blood Pressure Location Cora Lue [facility] 04-28-2022 11:20-0500 Diastolic blood pressure 76 mm[Hg] Cora Lue [facility] 04-28-2022 11:20-0500 Heart rate 68 /min Cora Lue [facility] 04-28-2022 11:20-0500 Respiratory rate 16 /min Cora Lue [facility] 04-28-2022 11:20-0500 Systolic blood pressure 128 mm[Hg] Cora Lue [facility] 03-15-2022 10:30-0400 Diastolic blood pressure 66 mm[Hg] Bianca Phan DO Work Phone: [facility] 03-15-2022 10:30-0400 Heart rate 70 /min Bianca Phan DO Work Phone: [facility] [employer] 03-15-2022 10:30-0400 Respiratory rate 18 /min Bianca Phan DO Work Phone: [facility] [employer] 03-15-2022 10:30-0400 SaO2% (BldA) [Mass fraction] 96 % Bianca Phan DO Work Phone: [facility] [employer] 03-15-2022 10:30-0400 Systolic blood pressure 113 mm[Hg] Bianca Phan DO Work Phone: [facility] [employer] 03-15-2022 10:10-0400 Body temperature 97.2 [degF] Bianca Phan DO Work Phone: [facility] [employer] 03-15-2022 09:00-0400 Body height 175.3 cm Bianca Phan DO [facility] 03-15-2022 09:00-0400 Body mass index (BMI) [Ratio] 35.59 kg/m2 Bianca Phan DO Work Phone: [facility] [employer] 03-15-2022 09:00-0400 Body weight 109.32 kg Bianca Phan DO Work [facility] 12-23-2021 08:06-0400 Blood Pressure Location Cora Danielse [facility] 12-23-2021 08:06-0400 Diastolic blood pressure 134 mm[Hg] Cora Danielse [facility] 12-23-2021 08:06-0400 Heart rate 98 /min Cora Danielse [facility] 12-23-2021 08:06-0400 Systolic blood pressure 149 mm[Hg] Cora Lue [facility] 11-18-2021 10:40-0400 Blood Pressure Location Cora Lue [facility] 11-18-2021 10:40-0400 Diastolic blood pressure 72 mm[Hg] Cora Lue [facility] 11-18-2021 10:40-0400 Heart rate 68 /min Cora Lue [facility] 11-18-2021 10:40-0400 Systolic blood pressure 127 mm[Hg] Cora Lue [facility] 09-14-2021 14:21-0400 Blood Pressure Location Cora Lue [facility] 09-14-2021 14:21-0400 Diastolic blood pressure 78 mm[Hg] Cora Lue [facility] 09-14-2021 14:21-0400 Heart rate 72 /min Cora Lue [facility] 09-14-2021 14:21-0400 Respiratory rate 16 /min Cora Lue [facility] 09-14-2021 14:21-0400 Systolic blood pressure 123 mm[Hg] Cora Lee [facility] Corey Encounters Encounter Date Encounter Type Care Provider Facility Start: 02-27-2025 ambulatory GEOVANNY SHAMGA [facility] Start: 11-28-2024 End: 11-28-2024 [facility] Start: 11-28-2024 End: 11-28-2024 Patient encounter procedure Cora Lee [facility] Start: 11-21-2024 End: 11-21-2024 Office outpatient visit 15 minutes Leonard Ramirez MD Work Phone: [facility] Comment on above: Multi-vessel coronar y artery stenosis (Primary Dx); Postoperative atrial fibrillation (Multi); Mixed hyperlipidemia; BMI 34.0-34.9,adult; Never smoked tobacco; Coronary artery disease of [place] artery [place] heart with stable angina pectoris Start: 11-21-2024 End: 11-21-2024 [facility] Start: 10-18-2024 End: 10-18-2024 Subsequent hospital visit by physician Shasta Red Echo/Vasc Room 2 [facility] Comment on above: Multi-vessel coronar y artery stenosis; Mixed hyperlipidemia; Postoperative atrial fibrillation (Multi) Start: 10-18-2024 End: 10-18-[address] [facility] Start: 05-30-2024 End: 05-30-2024 ambulatory [facility] Facility:[facility] Start: 05-30-2024 End: 05-30-2024 Patient encounter procedure Cora Lee [facility] Start: 03-14-2024 End: 03-14-2024 Office outpatient visit 15 minutes Leonard Ramirez MD Work Phone: [facility] Comment on above: Multi-vessel coronar y artery stenosis (Primary Dx); Mixed hyperlipidemia; Postoperative atrial fibrillation (Multi); BMI 32.0-32.9,adult; Coronary artery disease of [place] artery of [place] heart with stable angina pectoris Start: 03-14-2024 End: 03-14-2024 ambulatory [facility] Ambulatory Start: 09-09-2023 End: 09-09-2023 Office outpatient new 45 minutes Leonard Ramirez MD Work Phone: [facility] Comment on above: Multi-vessel coronar y artery stenosis (Primary Dx); High risk medication use; Mixed hyperlipidemia; Persistent atrial fibrillation (Multi); Anticoagulated; Pleural effusion Start: 08-25-2023 End: 08-25-2023 Postop follow up visit related to original px Scar Peck MD Work Phone: [facility] Comment on above: Pleural effusion (Pr imary Dx) Start: 08-25-2023 End: 08-25-2023 Subsequent hospital visit by physician Shasta X-Ray 2 [facility] Comment on above: S/P CABG x 4 Start: 08-17-2023 End: 08-17-2023 Professional / ancillary services management Norman Cedeño MA [facility] Comment on above: Shortness of breath; Dizziness Start: 08-11-2023 End: 08-11-2023 Postop follow up visit related to original px Scar Peck MD Work Phone: [facility] Comment on above: S/P CABG x 4 Start: 07-25-2023 End: 07-25-2023 Subsequent hospital visit by physician Shasta [facility] [place] Comment on above: Arrived Start: 07-19-2023 End: 07-31-2023 Evaluation and management of inpatient Juan J Foley MD Work Phone: [facility] 8 Cardiac Intensive Care Start: 07-19-2023 End: 07-31-2023 Patient encounter status Juan J Foley MD Work Phone: [facility] Work Phone: Start: 07-17-2023 End: 07-19-2023 Evaluation and management of inpatient Geovannymorris Merrill Facility:[facility] Start: 05-25-2023 End: 05-25-2023 Patient encounter procedure Cora Lee [facility] Start: 05-04-2023 End: 05-04-2023 Patient encounter procedure Cora Lee [facility] Start: 10-27-2022 End: 10-27-2022 Patient encounter procedure Cora Lee [facility] Start: 07-18-2022 Encounter for genera l adult medical examination without abnormal findings DR DANIELE HERNANDEZ [facility] Start: 07-13-2022 End: 07-14-[address] DANIELE HERNANDEZ Facility:[facility] Start: 07-13-2022 End: 07-14-2022 Encounter for general adult medical examination without abnormal findings DR DANIELE HERNANDEZ Facility:[facility] Start: 04-28-2022 End: 04-28-2022 Patient encounter procedure Cora Lee [facility] Start: 04-22-2022 End: 04-23-2022 ambulatory CORA Nelson Facility:[facility] Start: 03-15-2022 End: 03-15-2022 ambulatory SR DANIELE HERNANDEZ [facility] Start: 03-15-2022 End: 03-15-2022 Subsequent hospital visit by physician Binaca Phan DO Work Phone: [facility] [place] Start: 03-05-2022 ambulatory BIANCA PHAN [facility] Start: 12-23-2021 End: 12-23-2021 Patient encounter procedure Cora Lee [facility] Start: 12-07-2021 End: 12-07-2021 Patient encounter procedure DO Daniele Hernandez Work Phone: [facility] Start: 11-18-2021 End: 11-18-2021 Patient encounter procedure Cora Lee [facility] Start: 10-27-2021 End: 10-28-2021 ambulatory CORA LEE . Facility:[facility] Start: 09-14-2021 End: 09-14-2021 Patient encounter procedure Cora JemOmar Lee [facility] Start: 08-20-2021 End: 08-21-[address] DANIELE HERNANDEZ Facility:[facility] Procedures Date Procedure Procedure Detail Performing Clinician Start: 09-09-2023 Ecg routine ecg w/le ast 12 lds w/i&r Leonard Ramirez MD Work Phone: Start: 08-25-2023 Radiologic exam ches t 2 views Scar Peck MD Work Phone: Start: 07-31-2023 Glucose quantitative blood xcpt reagent strip Scar Peck MD Work Phone: Start: 07-31-2023 Ecg routine ecg w/le ast 12 lds trcg only w/o i&r Maryanne You 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 Work Phone: Start: 07-31-2023 Glucose quantitative blood xcpt reagent strip Scar Peck MD Work Phone: Start: 07-31-2023 Radiologic exam ches t 2 views Maryanne You 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 [employer] Work Phone: Start: 07-31-2023 Comprehensive metabo lic panel Maryanne You 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 [employer] Work Phone: Start: 07-30-2023 Glucose quantitative blood xcpt reagent strip Scar Peck MD Work Phone: Start: 07-30-2023 Glucose quantitative blood xcpt reagent strip Scar Peck MD Work Phone: Start: 07-30-2023 Ecg routine ecg w/le ast 12 lds trcg only w/o i&r Maryanne Arreguin Carl 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 [employer] Work Phone: Start: 07-30-2023 Glucose quantitative blood xcpt reagent strip Scar Peck MD Work Phone: Start: 07-30-2023 Renal function panel Ra trejo Kallie You 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 [employer] Work Phone: Start: 07-30-2023 Radiologic exam ches t single view Maryanne You 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 [employer] Work Phone: Start: 07-29-2023 Glucose quantitative blood xcpt reagent strip Scar Peck MD Work Phone: Start: 07-29-2023 Ecg routine ecg w/le ast 12 lds trcg only w/o i&r Maryanne L Carl 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 [employer] Work Phone: Start: 07-29-2023 Glucose quantitative blood xcpt reagent strip Scar Peck MD Work Phone: Start: 07-29-2023 Glucose quantitative blood xcpt reagent strip Scar Peck MD Work Phone: Start: 07-29-2023 Ecg routine ecg w/le ast 12 lds trcg only w/o i&r Maryanne Kallie You 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 [employer] Work Phone: Start: 07-29-2023 Glucose quantitative blood xcpt reagent strip Apolinar Forbes MD Work Phone: Start: 07-29-2023 Radiologic exam ches t single view Maryanne You 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 [employer] Work Phone: Start: 07-29-2023 Renal function panel Ra neil You 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 [employer] Work Phone: Start: 07-28-2023 Glucose quantitative blood xcpt reagent strip Apolinar Forbes MD Work Phone: Start: 07-28-2023 Glucose quantitative blood xcpt reagent strip Apolinar Forbes MD Work Phone: Start: 07-28-2023 Glucose quantitative blood xcpt reagent strip Apolinar Forbes MD Work Phone: Start: 07-28-2023 Glucose quantitative blood xcpt reagent strip Apolinar Forbes MD Work Phone: Start: 07-28-2023 Ecg routine ecg w/le ast 12 lds trcg only w/o i&r Maryanne You 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 [employer] Work Phone: Start: 07-28-2023 Radiologic exam ches t single view Maryanne You 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 [employer] Work Phone: Start: 07-28-2023 End: 07-28-2023 Renal function panel Maryanne You [employer]ADER [employer]GER [employer] Work Phone: Start: 07-27-2023 Glucose quantitative blood xcpt reagent strip Apolinar Forbes MD Work Phone: Start: 07-27-2023 Glucose quantitative blood xcpt reagent strip Apolinar Forbes MD Work Phone: Start: 07-27-2023 Glucose quantitative blood xcpt reagent strip Apolinar Forbes MD Work Phone: Start: 07-27-2023 Glucose quantitative blood xcpt reagent strip Apolinar Forbes MD Work Phone: Start: 07-27-2023 Ecg routine ecg w/le ast 12 lds trcg only w/o i&r Maryanne L You 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 [employer] Work Phone: Start: 07-27-2023 Ecg routine ecg w/le ast 12 lds trcg only w/o i&r Apolinar Forbes MD Work Phone: Start: 07-27-2023 Radiologic exam ches t single view Maryanne You 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 [employer] Work Phone: Start: 07-27-2023 Renal function panel Da amanuel Quintero 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 [employer], DNP Work Phone: Start: 07-26-2023 Glucose quantitative blood xcpt reagent strip Apolinar Forbes MD Work Phone: Start: 07-26-2023 Glucose quantitative blood xcpt reagent strip Apolinar Forbes MD Work Phone: Start: 07-26-2023 Radiologic exam ches t single view Maryanne Arreguin Carl 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 [employer] Work Phone: Start: 07-26-2023 Glucose quantitative blood xcpt reagent strip Apolinar Forbes MD Work Phone: Start: 07-26-2023 Glucose quantitative blood xcpt reagent strip Apolinar Forbes MD Work Phone: Start: 07-26-2023 Ecg routine ecg w/le ast 12 lds trcg only w/o i&r Maryanne You 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 [employer] Work Phone: Start: 07-26-2023 Radiologic exam ches t single view Maryanne You 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 [employer] Work Phone: Start: 07-26-2023 End: 07-26-2023 Renal function panel Apolinar rodriguez MD Work Phone: Start: 07-26-2023 Glucose quantitative blood xcpt reagent strip Apolinar Forbes MD Work Phone: Start: 07-25-2023 End: 07-25-2023 Chloride bld Delilah Quintero APR N-MANAGER CONTRACT, DNP Work Phone: Start: 07-25-2023 Assay of lactate Sandra Forbes MD Work Phone: Start: 07-25-2023 Glucose quantitative blood xcpt reagent strip Apolinar Forbes MD Work Phone: Start: 07-25-2023 Radiologic exam ches t single view Delilah Quintero 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 [employer], DNP Work Phone: Start: 07-25-2023 Ecg routine ecg w/le ast 12 lds trcg only w/o i&r Joanna F Olive 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 [employer] Work Phone: Start: 07-25-2023 End: 07-25-2023 Chloride bld Joanna F Olive 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 [employer] Work Phone: Start: 07-25-2023 Gases blood ph direc t crow xcpt pulse oximitry Joanna F Olive 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 [employer] Work Phone: Start: 07-25-2023 PULSE OXIMETRY, CONTINUOUS Joanna F Olive 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 [employer] Work Phone: Start: 07-25-2023 End: 07-25-2023 Coagulation time activated Interface Unspecifiedprovider Work Phone: Start: 07-25-2023 End: 07-25-2023 Coagulation time activated Interface Unspecifiedprovider Work Phone: Start: 07-25-2023 End: 07-25-2023 Coagulation time activated Interface Unspecifiedprovider Work Phone: Start: 07-25-2023 End: 07-25-2023 Cabg w/arterial graft two arterial grafts Scar Peck MD Work Phone: Start: 07-25-2023 Radiologic exam ches t single view Sana Tripp MD Work Phone: Start: 07-25-2023 Coagulation time activated Interface Unspecifiedprovider Work Phone: Start: 07-25-2023 ANESTHESIA INTRAOPERATIVE MARCUS Scar Peck MD Work Phone: Start: 07-25-2023 Comprehensive metabo lic panel Magalis Mc 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 [employer] Work Phone: Start: 07-25-2023 EXTRA TUBES Attila good MD Work Phone: Start: 07-25-2023 SST TOP Attila good MD Work Phone: Start: 07-24-2023 VERAB/VERIFY ABORH Laina Salgado MD Work Phone: Start: 07-24-2023 Ecg routine ecg w/le ast 12 lds trcg only w/o i&r Magalis Mc 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 [employer] Work Phone: Start: 07-24-2023 Blood typing serolog ic rh (d) Magalis Henderson Komosa 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 [employer] Work Phone: Start: 07-24-2023 PREPARE RBC Magalis Henderson Komosa 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 [employer] Work Phone: Start: 07-24-2023 Basic metabolic pane l calcium total Attila Salgado MD Work Phone: Start: 07-23-2023 Ecg routine ecg w/le ast 12 lds trcg only w/o i&r Eduardo Ferro 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 [employer] Work Phone: Start: 07-23-2023 Heparin assay Attila gardner MD Work Phone: Start: 07-22-2023 Ecg routine ecg w/le ast 12 lds trcg only w/o i&r Eduardo Ferro 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 [employer] Work Phone: Start: 07-22-2023 End: 07-22-2023 Blood count complete automated Attila Salgado MD Work Phone: Start: 07-22-2023 EXTRA TUBES Attila good MD Work Phone: Start: 07-22-2023 PST TOP Attila good MD Work Phone: Start: 07-22-2023 SST TOP Attila good MD Work Phone: Start: 07-21-2023 Ecg routine ecg w/le ast 12 lds trcg only w/o i&r Eduardoapolinar Ferro 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 [employer] Work Phone: Start: 07-21-2023 Basic metabolic pane l calcium total Attila Salgado MD Work Phone: Start: 07-21-2023 EXTRA TUBES Attila good MD Work Phone: Start: 07-21-2023 LAVENDER TOP Attila good MD Work Phone: Start: 07-21-2023 SST TOP Attila good MD Work Phone: Start: 07-20-2023 Heparin assay Anjum palomares MD Work Phone: Start: 07-20-2023 EXTRA TUBES Attila good MD Work Phone: Start: 07-20-2023 Heparin assay Attila gardner MD Work Phone: Start: 07-20-2023 SST TOP Attila good MD Work Phone: Start: 07-20-2023 Ecg routine ecg w/le ast 12 lds trcg only w/o i&r Eduardo Ferro 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 [employer] Work Phone: Start: 07-20-2023 Basic metabolic pane l calcium total Anjum Nieto MD Work Phone: Start: 07-20-2023 EXTRA TUBES Attila good MD Work Phone: Start: 07-20-2023 SST TOP Attila good MD Work Phone: Start: 07-20-2023 Thyrotropin [Units/volume] in Serum or Plasma Shasta Marcus Start: 07-19-2023 EXTRA URINE GRIFFITH TUBE R achel Kallie You 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 [employer] Work Phone: Start: 07-19-2023 Urinalysis complete W Reflex Culture panel - Urine Maryanne You 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 [employer] Work Phone: Start: 07-19-2023 Urnls dip stick/tabl et rgnt auto w/o microscopy Maryanne You 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 [employer] Work Phone: Start: 07-19-2023 EXTRA TUBES Attila good MD Work Phone: Start: 07-19-2023 Lipid panel Attila good MD Work Phone: Start: 07-19-2023 PST TOP Attila good MD Work Phone: Start: 07-19-2023 SST TOP Attila good MD Work Phone: Start: 07-19-2023 Duplex scan extracranial art compl bi study Maryanne You [employer] TEAM LEADER-[facility] Work Phone: Start: 07-19-2023 Radiologic exam ches t 2 views Maryanne You 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 [employer] Work Phone: Start: 07-19-2023 Ct thorax w/o contra st material Maryanne You 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 [employer] Work Phone: Start: 07-19-2023 Echo tthrc r-t 2d w/wom-mode compl spec&colr d Eduardo Ferro [employer] TE[employer] LEADER-[facility] Work Phone: Start: 07-19-2023 Ecg routine ecg w/le ast 12 lds trcg only w/o i&r Anjum Nieto MD Work Phone: Start: 07-19-2023 End: 07-19-2023 Comprehensive metabolic panel Anjum Nieto MD Work Phone: Start: 07-19-2023 EXTRA TUBES Anjum brown MD Work Phone: Start: 07-19-2023 SST TOP Anjum brown MD Work Phone: Start: 07-19-2023 Lipid 1996 panel - Serum or Plasma Shasta Marcus Start: 12-07-2021 MR prostate wo/w con DO Daniele Hernandez Work Phone: Start: 08-20-[address] ANTHONY HERNANDEZ Comment on above: Performed By: #### P SAD #### [facility] [address] [address] [address] Jurgen Nunn Appendectomy Cora Lee Bypass of carotid artery to carotid artery using vein graft Cora Lee Extraction of cataract Cora Lee History of coronary artery bypass grafting S/P CABG x 4 Shasta 2 History of coronary artery bypass grafting S/P CABG x 4 Scar Peck MD Work Phone: Placement of stent i n cardiac conduit Cora Lee Tonsillectomy Cora Lee Plan of Treatment Date Care Activity Detail Author Start: 07-18-2028 Lipid panel [facility] Start: 08-27-2025 End: 08-27-2025 Patient encounter procedure 08/27/2025 2:40 PM EDT Office Visit [address] [phone] Leonard Ramirez MD [address] [facility], [facility] [address] [place] [address] [facility] Start: 01-14-2025 Influenza vaccination Influenza Vaccine (#1) [facility] Start: 11-21-2024 End: 11-21-2024 Patient encounter procedure 11/21/2024 1:30 PM EDT Office Visit [address] [place] [address] Leonard Ramirez MD [address] [facility] [place] [address] [facility] Start: 10-18-2024 End: 10-18-2024 Patient encounter procedure 10/18/2024 1:30 PM EDT [facility] [address] [place] [phone] Dave [facility] Start: 07-30-2024 Diabetes mellitus screening [facility] Start: 07-25-2024 Diabetes mellitus screening Diabetes Screening [facility] Start: 07-19-2024 Thyroid stimulating hormone measurement [facility] Start: 03-14-2024 End: 03-14-2024 Patient encounter procedure 03/14/2024 2:40 PM EDT Office Visit [facility] [address] [place] [phone] Leonard Ramirez MD [address] [place] [address] [facility] Start: 03-14-2024 End: 03-14-2025 Alanine aminotransferase [Enzymatic activity/volume] in Serum or Plasma by With P-5'-P Alanine Aminotransferase Lab Routine Mixed hyperlipidemia Expected: 03/14/2024 (Approximate), Expires: 03/14/2025 [facility] Work Phone: Comment on above: Expected: 03/14/2024 (Approximate), Expi res: 03/14/2025 Start: 03-14-2024 End: 03-14-2025 Aspartate aminotransferase [Enzymatic activity/volume] in Serum or Plasma by With P-5'-P Aspartate Aminotransferase Lab Routine Mixed hyperlipidemia Expected: 03/14/2024 (Approximate), Expires: 03/14/2025 [facility] Work Phone: Comment on above: Expected: 03/14/2024 (Approximate), Expi res: 03/14/2025 Start: 03-14-2024 End: 03-14-2025 Basic metabolic 2000 panel - Serum or Plasma Basic Metabolic Panel Lab Routine Multi-vessel coronary artery stenosis Expected: 03/14/2024 (Approximate), Expires: 03/14/2025 [facility] Work Phone: Comment on above: Expected: 03/14/2024 (Approximate), Expi res: 03/14/2025 Start: 03-14-2024 End: 03-14-2025 Lipid 1996 panel - Serum or Plasma Lipid Panel Lab Routine Mixed hyperlipidemia Expected: 03/14/2024 (Approximate), Expires: 03/14/2025 [facility] Work Phone: Comment on above: Expected: 03/14/2024 (Approximate), Expi res: 03/14/2025 Start: 03-14-2024 End: 03-14-2026 US Heart Transthoracic Transthoracic Echo Complete Echocardiography Routine Multi-vessel coronary artery stenosis Mixed hyperlipidemia Postoperative atrial fibrillation (Multi) Expected: 03/14/2024 (Approximate), Expires: 03/14/2026 [facility] Work Phone: Comment on above: Expected: 03/14/2024 (Approximate), Expi res: 03/14/2026 Start: 03-09-2024 Yearly Adult Physical Yearly Adult Physical [facility] Start: 01-15-2024 COVID-19 Vaccine ( season) COVID-19 Vaccine ( season) [facility] Start: 01-15-2024 Influenza vaccination Influenza Vaccine (#1) [facility] Start: 09-09-2023 End: 09-09-2023 Patient encounter procedure 09/09/2023 9:00 AM EDT Office Visit [facility] [address] [place] [address] Leonard [facility] [facility] [address] [place] [address] [facility] Start: 08-25-2023 End: 08-25-2023 Patient encounter procedure 08/25/2023 1:20 PM EDT Office Visit [facility] [address] [place] [address] [place] [address] [place] [address] [facility] Start: 01-14-2023 COVID-19 Vaccine ( season) COVID-19 Vaccine ( season) [facility] Start: 01-14-2023 [facility] Start: 03-15-2022 End: 03-15-2022 Xcapsl ctrc rmvl insj io lens prosth w/o ecp EYE CATARACT EMULSIFICATION IOL IMPLANT Combined forms of age-related cataract of right eye 03/15/2022 9:45 AM T [facility] Start: 12-14-2021 Influenza vaccination Flu vaccine (#1) [facility] Start: 2021 RSV High Risk: (Elderly (60+) or Population) (1 - Risk 60-74 years 1-dose series) RSV High Risk: (Elderly (60+) or Population) (1 - Risk 60-74 years 1-dose series) [facility] Start: 2021 RSV patients and/or patients aged 60+ years (1 - 1-dose 60+ series) RSV patients and/or patients aged 60+ years (1 - 1-dose 60+ series) [facility] Start: 09-22-2011 Zoster Vaccines (1 of 2) Zoster Vaccines (1 of 2) [facility] Start: 09-22-2011 [facility] Start: 09-22-1983 DTaP/Tdap/Td Vaccines (1 - Tdap) DTaP/Tdap/Td Vaccines (1 - Tdap) [facility] Start: 09-22-1983 [facility] Start: 1980 DTaP/Tdap/Td vaccine (1 - Tdap) DTaP/Tdap/Td vaccine (1 - Tdap) [facility] Start: 09-22-1979 Hepatitis C screening [facility] Start: 1962 MMR Vaccines (1 of 1 - Standard series) MMR Vaccines (1 of 1 - Standard series) [facility] Start: 1962 [facility] Start: 03-24-1962 COVID-19 Vaccine (#1) COVID-19 Vaccine (#1) [employer] Start: 1961 HIV screening [facility] Start: 1961 Screening for malignant neoplasm of colon [facility] Start: 1961 Yearly Adult Physical Yearly Adult Physical [facility] Start: 1961 [facility] End: 07-25-2023 Determination of physical activity tolerance [facility] Work Phone: ECG 12 lead [facility] Work Phone: ECG 12 Lead ECG 12 Lead ECG Routine Shortness of breath Dizziness 08/17/2023 8:53 AM EDT [facility] Work Phone: Glucose [Mass/volume ] in Serum or Plasma [facility] Work Phone: End: 07-25-2023 Incentive spirometry Instruct [facility] Work Phone: End: 03-15-2022 INITIATE PACU OXYGEN THERAPY PROTOCOL Initiate PACU Oxygen Therapy Protocol Respiratory Care Routine Continuous until discontinued starting 03/15/2022 [facility] [employer] Comment on above: Continuous until discontinued starting 1 Oxygen therapy [Mini mum Data Set] Initiate Oxygen Therapy Protocol Respiratory Care Routine Daily until discontinued starting 03/15/2022 [employer] Work Phone: Comment on above: Daily until discontinued starting 2021 Oxygen therapy [Mini mum Data Set] Initiate Oxygen Therapy Protocol Respiratory Care Routine Daily until discontinued starting 03/15/2022 [employer] Work Phone: Comment on above: Daily until discontinued starting 2021 End: 10-18-2024 US Heart Transthoracic [facility] Work Phone: Comment on above: Once for 1 Occurrences starting 10/19/19 until 10/18/2024 End: 08-25-2023 XR Chest 2 Views [facility] Work Phone: Comment on above: Once for 1 Occurrences starting 04 until 08/25/2023 Immunizations Immunization Date Immunization Notes Care Provider Julia ames 03-29-2024 Influenza, injectabl e, Amberly Quintero Canine Kidney, preservative free, quadrivalent Leonard Ramirez MD Work Phone: [facility] 03-29-2024 influenza virus vaccine, unspecified formulation Leonard Ramirez MD Work Phone: [facility] Work Phone: 03-28-2023 influenza virus vaccine, unspecified formulation Coradarwin Lee [facility] 03-28-2023 influenza, injectabl e, quadrivalent, preservative free Leonard Ramirez MD Work Phone: [facility] Work Phone: 03-28-2023 pneumococcal 20-yvan nt conjugate vaccine Cora Lee [facility] 04-01-2022 influenza virus vaccine, unspecified formulation Coradarwin Lee [facility] 04-01-2022 influenza, injectabl e, quadrivalent, preservative free Leonard Ramirez MD Work Phone: [facility] Work Phone: 04-29-2021 SARS-CoV-2 (COVID-19 ) mRNA-[id number] vaccine Cora Lumichael [facility] 04-10-2021 influenza virus vaccine, unspecified formulation Cora Lee [facility] 04-10-2021 influenza, injectabl e, quadrivalent, preservative free Leonard Ramirez MD Work Phone: [facility] Work Phone: 10-08-2020 SARS-CoV-2 (COVID-19 ) mRNA-1273 vaccine Cora Lue [facility] 09-12-2020 SARS-CoV-2 (COVID-19 ) mRNA-1273 vaccine Cora Lue [facility] 05-16-2020 SARS-CoV-2 (COVID-19 ) mRNA-1273 vaccine Cora Lue [facility] Payers Date Payer Category Payer Self-pay [id number] 2022 Medicaid [id number] 2020 Medicaid (Managed Care) 1.2. [id number] 2020 Unknown [id number] 1961 Unknown [id number] 1961 Unknown [id number] 2.16.84 [id number] 1961 Unknown [id number] 2.16.84 [id number] 1961 Unknown [id number] 2.16.84 [id number] 1961 Unknown [id number] 2.16.84 [id number] 1961 Unknown [id number] [id number] 1961 Unknown [id number] [id number] 1961 Unknown [id number] [id number] 1961 Unknown [id number] [id number] 1961 Unknown [id number] [id number] 1961 Unknown [id number] [id number] 1961 Unknown [id number] [id number] 1959 Medicaid [id number] Unknown [employer] BC/BS [id number] Unknown [id number] Social History Date Type Detail Facility Start: 09-14-2021 End: 11-28-2024 Tobacco smoking status Never smoked tobacco (finding) [facility] Start: 07-19-2023 End: 07-26-2023 Sex Assigned At Male [facility] Start: 1960 Sex Assigned At Male [facility] Start: 03-15-2022 Alcohol intake Ex-drinker (finding) [facility] [employer] Work Phone: Start: 1960 Sex Assigned At Not on file B [facility] [employer] Phone: Start: 03-05-2022 End: 10-18-2024 Exposure to SARS-CoV-2 (event) Not sure [facility] Tobacco smoking status Never [facility] Start: 07-19-2023 Tobacco use and exposure Smoke less tobacco non-user [facility] Work Phone: Start: 07-19-2023 End: 07-26-2023 History of Social function [facility] Work Phone: How often to you hav e a drink containing alcohol? Monthly or less [facility] Work Phone: How many standard dr inks containing alcohol do you have on a typical day? 1 or 2 [facility] Work Phone: How often do you hav e 6 or more drinks on 1 occasion? Monthly [facility] Work Phone: How hard is it for y ou to pay for the very basics like food, housing, medical care, and heating Not very hard [facility] Work Phone: At any time in the p ast 12 months, were you homeless or living in penitentiary [including now]? No [facility] Work Phone: Start: 08-17-2023 End: 11-21-2024 Alcohol intake Current drinker of alcohol (finding) [facility] Work Phone: Start: 08-11-2023 Alcohol Comment occasional [facility] Work Phone: How often do you hav e 6 or more drinks on 1 occasion? Monthly [facility] Work Phone: Sexual Orientation [facility] Sex Male (finding) [facility] Medical Equipment Procedure Code Equipment Code Equipment Origin al Text Equipment Identifier Dates Lens Iol Envista [id number] 22.5d - [id number] Start: 09-04-2018 Lens Intraocular Bcnvx +22.5 Diopt 6x12.5 Mm [employer] - [id number] Start: 03-15-2022 [id number] Start: 07-25-2023 Functional Status Date Assessment Result Facility 05-30-2024 Functional Status N/A [facility] 05-25-2023 Functional Status N/A [facility] 10-27-2022 Functional Status N/A [facility] 04-28-2022 Functional Status N/A [facility] 12-23-2021 Functional Status N/A [facility] 11-18-2021 Functional Status N/A [facility] Clinical Notes 09-14-2021 to 11-28-2024 Leonard Ramirez MD - 11/21/2024 1:30 PM EDTPatient InstructionsAttachmentsMojim Ramirez MD - 03/14/2024 2:40 PM EDTPatient InstructionsAttachmentsPatient InstructionsDischarge Instructions Note Date & Type Note Facility 11-28-2024 Hospital Discharge instructions Patient Education 11/28/2024 11:29:12 Prostate Cancer Screening Prostate Cancer Screening Prostate [...] treatment? Where to find more information The [place] [employer]: www.cancer.org [place] [employer]: www.auanet.org Contact a health care [...] provider. Document Revised: 10/26/2021 Document Reviewed: 10/26/2021 [employer] Patient Education 2023 [employer]. Follow Up Care 11/27/2024 15:55:34 With:Jesus ROD, OFELIA Friedman, URO Address: [address], [place] [id number] When: Unknown Comments:3 mos w/ PSA [facility] 11-28-[facility] Note Patient Education Oncology Prostate Cancer Screening Prostate [...] Where to find more information ??? The [place] [employer]: www.cancer.org ??? [place] [employer]: www.auanet.org Contact a health care provider if: ??? You have difficulty urinating. ??? You have pain when you urinate or ejaculate. ??? You have blood in your urine or semen. ??? You have pain in your back or in the area of your prostate. Summary ??? Prostate cancer is a common type of cancer in men. The prostate gland (more content not included)... [facility] 11-21-2024 History of Present illness Narrative Chief Complaint Patient presents with Follow-up Patient here for 9 month follow up for coronary artery stenosis, denies cardiac c/o at this time. Subjective Robert Smiley is a 64 y.o. male HPI Patient is here for follow-up to management for history of coronary artery disease with prior bypass surgery, ischemic cardiomyopathy and hyperlipidemia. Since last time I saw him he denies any cardiac complaints chest pain, palpitation, lightheadedness, dizziness or syncope. He remains active inscribe functional class I. He reports his lab work was done at [facility] but the result is not available to me. Assessment 1. Multivessel coronary artery disease with recent four-vessel bypass surgery with ESTES to the LAD, saphenous vein graft to marginal, diagonal and PDA. He described functional class I and denies any anginal symptoms 2. Mild ischemic cardiomyopathy with LVEF around 40% by heart cath but recent echo showed normal LV systolic function 3. Hyperlipidemia labs were done but the result is not available to me. He is on high-dose atorvastatin 4. Postoperative atrial fibrillation. We stopped his amiodarone and Eliquis long time ago with no recurrence 5. Family report history of Asperger syndrome Plan 1. I advised the patient to continue present medical regimen. 2. I we will try to retrieve his recent lab work 3. I recommended coronary risk factor modification with special emphasis on losing weight and exercise 4. I will see him back in the office in 8 months Review of Systems All other systems reviewed and are negative. Vitals: 11/21/24 1317 BP: 130/86 BP Location: Left arm Patient Position: Sitting Pulse: 76 Weight: 104 kg (229 lb 12.8 oz) Height: 1.727 m (5' 8 ) Objective Physical Exam Constitutional: Appearance: Normal appearance. HENT: Nose: Nose normal. Neck: Vascular: No carotid bruit. Cardiovascular: Rate and Rhythm: Normal rate. Pulses: Normal pulses. Heart sounds: Normal heart sounds. Pulmonary: Effort: Pulmonary effort is normal. Abdominal: General: Bowel sounds are normal. Palpations: Abdomen is soft. Musculoskeletal: General: Normal range of motion. Cervical back: Normal range of motion. Right lower leg: No edema. Left lower leg: No edema. Skin: General: Skin is warm and dry. Neurological: General: No focal deficit present. Mental Status: He is alert. Psychiatric: Mood and Affect: Mood normal. Behavior: Behavior normal. Thought Content: Thought content normal. Judgment: Judgment normal. Allergies Patient has no known allergies. Current Medications Current Outpatient Medications Medication Instructions acetaminophen (TYLENOL 8 HOUR) 650 mg, Every 8 hours PRN allopurinol (Zyloprim) 100 mg tablet 1 tablet, Daily (629) aspirin 81 mg, oral, Daily atorvastatin (LIPITOR) 40 mg, oral, Nightly lisinopril 2.5 mg, oral, Daily meloxicam (Mobic) 15 mg tablet 1 tablet, Daily (629) metoprolol succinate XL (TOPROL-XL) 12.5 mg, oral, Daily, Do not crush or chew. Assessment/Plan 1. Multi-vessel coronary artery stenosis Follow Up In Cardiology Follow Up In Cardiology 2. Postoperative atrial fibrillation (Multi) 3. Mixed hyperlipidemia 4. BMI 34.0-34.9,adult 5. Never smoked tobacco 6. Coronary artery disease of [place] artery of [place] heart with stable angina pectoris aspirin 81 mg chewable tablet Scribe Attestation By signing my name below, I, Jackie Paul LPNibmichael attest that this documentation has been prepared under the direction and in the presence of Leonard Ramirez MD. Provider Attestation - Scribe documentation All medical record entries made by the Scribe were at my direction and personally dictated by me. I have reviewed the chart and agree that the record accurately reflects my personal performance of the history, physical exam, discussion and plan. documented in this encounter [facility] Work Phone: 11-21-2024 Instructions Jessica Gonzales LPN - 11/21/2024 1:30 PM EDT Please bring all medicines, vitamins, and herbal supplements with you when you come to the office. Prescriptions will not be filled unless you are compliant with your follow up appointments or have a follow up appointment scheduled as per instruction of your physician. Refills should be requested at the time of your visit. BMI was above normal measurement. Current weight: 104 kg (229 lb 12.8 oz) Weight change since last visit (-) denotes wt loss 16.8 lbs Weight loss needed to achieve BMI 25: 65.7 Lbs Weight loss needed to achieve BMI 30: 32.9 Lbs Provided instructions on dietary changes Provided instructions on exercise. The following attachments cannot be sent through Care Everywhere.Heart Healthy Diet (Latvian)documented in this encounter [facility] Work Phone: 05-30-2024 Hospital Discharge instructions Patient Education 05/30/2024 11:48:50 Prostate Cancer Screening Prostate Cancer Screening Prostate [...] treatment? Where to find more information The [place] Cancer [employer]: www.cancer.org [place] [employer]: www.auanet.org Contact a health care [...] provider. Document Revised: 10/26/2021 Document Reviewed: 10/26/2021 [employer] Patient Education 2023 [employer]Eye. Follow Up Care 05/25/2023 11:52:08 With:Jesus ROD, Cora Gupta, URL, URO Address: When: Unknown Comments:Pending MRI [facility] 05-30-2024 Note Patient Education Oncology Prostate Cancer Screening Prostate [...] Where to find more information ??? The [place] [employer]: www.cancer.org ??? [place] [employer]: www.auanet.org Contact a health care provider if: ??? You have difficulty urinating. ??? You have pain when you urinate or ejaculate. ??? You have blood in your urine or semen. ??? You have pain in your back or in the area of your prostate. Summary ??? Prostate cancer is a common type of cancer in men. The prostate gland (more content not included)... [facility] 03-14-2024 History of Present illness Narrative Subjective Robert Smiley is a 63 y.o. male Chief Complaint Follow-up HPI Patient is here for follow-up continue management for coronary artery disease recent bypass surgery, mild ischemic cardiomyopathy and hyperlipidemia. Since last time I saw him he denies any cardiac complaint. He finished cardiac rehab. He quit taking Eliquis on his own. He is doing well and denying any active cardiac symptoms. Assessment 1. Multivessel coronary artery disease with recent four-vessel bypass surgery with ESTES to the LAD, saphenous vein graft to marginal, diagonal and PDA 2. Mild ischemic cardiomyopathy with LVEF around 40% by heart cath but repeat echo showed normal LV systolic function 3. Hyperlipidemia 4. Postoperative atrial fibrillation. No recurrence we stopped his amiodarone and he quit taking his Eliquis on his own 5. Family report history of Asperger syndrome Plan 1. I advised the patient to continue present medical regimen. Patient is off amiodarone and Eliquis 2. I advised him to repeat his lab work and echocardiogram 3. I recommended coronary risk factor modification 4. I will see him back in the office in 6 months Review of Systems All other systems reviewed and are negative. Vitals: 03/14/24 1458 BP: 110/64 BP Location: Right arm Patient Position: Sitting Pulse: 78 Weight: 96.6 kg (213 lb) Height: 1.727 m (5' 8 ) Objective Physical Exam Constitutional: Appearance: Normal appearance. HENT: Nose: Nose normal. Neck: Vascular: No carotid bruit. Cardiovascular: Rate and Rhythm: Normal rate. Pulses: Normal pulses. Heart sounds: Normal heart sounds. Pulmonary: Effort: Pulmonary effort is normal. Abdominal: General: Bowel sounds are normal. Palpations: Abdomen is soft. Musculoskeletal: General: Normal range of motion. Cervical back: Normal range of motion. Right lower leg: No edema. Left lower leg: No edema. Skin: General: Skin is warm and dry. Neurological: General: No focal deficit present. Mental Status: He is alert. Psychiatric: Mood and Affect: Mood normal. Behavior: Behavior normal. Thought Content: Thought content normal. Judgment: Judgment normal. Allergies Patient has no known allergies. Current Medications Current Outpatient Medications: acetaminophen (Tylenol 8 HOUR) 650 mg ER tablet, Take 1 tablet (650 mg) by mouth every 8 hours if needed for mild pain (1 - 3). Do not crush, chew, or split., Disp: , Rfl: aspirin 81 mg chewable tablet, Chew 1 tablet (81 mg) once daily. Do not start before August 01, 2023., Disp: 90 tablet, Rfl: 3 atorvastatin (Lipitor) 40 mg tablet, Take 1 tablet (40 mg) by mouth once daily at bedtime., Disp: 90 tablet, Rfl: 3 lisinopril 2.5 mg tablet, Take 1 tablet (2.5 mg) by mouth once daily., Disp: 30 tablet, Rfl: 11 metoprolol succinate XL (Toprol-XL) 25 mg 24 hr tablet, Take 0.5 tablets (12.5 mg) by mouth once daily. Do not crush or chew., Disp: 45 tablet, Rfl: 3 Assessment/Plan 1. Multi-vessel coronary artery stenosis Follow Up In Cardiology 2. Mixed hyperlipidemia 3. Postoperative atrial fibrillation (Multi) 4. BMI 32.0-32.9,adult 5. Coronary artery disease of [place] artery of [place] heart with stable angina pectoris Scribe Attestation By signing my name below, I, Jessica Gupta LPN , Scribe attest that this documentation has been prepared under the direction and in the presence of Leonard Ramirez MD. Provider Attestation - Scribe documentation All medical record entries made by the Scribe were at my direction and personally dictated by me. I have reviewed the chart and agree that the record accurately reflects my personal performance of the history, physical exam, discussion and plan. documented in this encounter [facility] Work Phone: 03-14-2024 Instructions Jessica Gonzales LPN - 03/14/2024 2:40 PM EDT Please bring all medicines, vitamins, and herbal supplements with you when you come to the office. Prescriptions will not be filled unless you are compliant with your follow up appointments or have a follow up appointment scheduled as per instruction of your physician. Refills should be requested at the time of your visit. BMI was above normal measurement. Current weight: 96.6 kg (213 lb) Weight change since last visit (-) denotes wt loss -4 lbs Weight loss needed to achieve BMI 25: 48.9 Lbs Weight loss needed to achieve BMI 30: 16.1 Lbs Provided instructions on dietary changes Provided instructions on exercise. The following attachments cannot be sent through Care Everywhere.Heart Healthy Diet (Latvian)documented in this encounter [facility] Work Phone: 09-09-2023 History of Present illness Narrative Cardiology Consultation- New Consult Reason for referral: Follow-up after recent bypass surgery to establish care HPI: Robert Smiley is a 62 y.o. male whom I am seeing for the first time. He presented 8 weeks ago with myocardial infarction. Cardiac catheterization showed mild LV systolic dysfunction and multivessel coronary artery disease. He was transferred to [facility] where he underwent four-vessel bypass surgery with ESTES to the LAD, saphenous vein graft to diagonal, marginal and PDA. His surgery was complicated with persistent atrial fibrillation. Patient was placed on amiodarone and Eliquis. He was discharged about 5 weeks ago. He feels well. He denies complaint of chest pain, palpitation, or syncope. He described functional class I. He report minor dizziness for which she cut down his metoprolol dose by half to once a day. The patient otherwise seems to be doing well and recovering well from his surgery. Assessment 1. Multivessel coronary artery disease with recent four-vessel bypass surgery with ESTES to the LAD, saphenous vein graft to marginal, diagonal and PDA 2. Mild ischemic cardiomyopathy with LVEF around 40% by heart cath but repeat echo showed normal LV systolic function 3. Hyperlipidemia 4. Postoperative atrial fibrillation 5. High risk medication in the form of amiodarone and Eliquis 6. Family report history of Asperger syndrome Plan 1. I advised the patient to discontinue amiodarone Lasix and potassium 2. Patient was advised to continue aspirin, switch to metoprolol to meet Toprol succinate 12.5 mg once daily and add a small dose lisinopril for vascular protection 2.5 mg daily and continue atorvastatin 3. I referred him to cardiac rehab 4. Patient had a follow-up with his surgeon for small pleural effusion 5. Follow-up in 6 months Past Medical History: He has a past medical history of Asperger's syndrome (HHS-HCC), Coronary artery disease, Gout, Hyperlipidemia, and Myocardial infarct (Multi). Surgical History: He has a past surgical history that includes Appendectomy; Coronary stent placement; and Coronary artery bypass graft. Family History: Family History Problem Relation Name Age of Onset Rheumatic fever Mother Edil Parkinson White syndrome Sister Social History: Social History Tobacco Use Smoking status: Never Smokeless tobacco: Never Substance Use Topics Alcohol use: Yes Comment: occasional Allergies: Patient has no known allergies. Current Medications: Current Outpatient Medications: acetaminophen (Tylenol 8 HOUR) 650 mg ER tablet, Take 1 tablet (650 mg) by mouth every 8 hours if needed for mild pain (1 - 3). Do not crush, chew, or split., Disp: , Rfl: aspirin 81 mg chewable tablet, Chew 1 tablet (81 mg) once daily. Do not start before August 01, 2023., Disp: 90 tablet, Rfl: 3 apixaban (Eliquis) 5 mg tablet, Take 1 tablet (5 mg) by mouth every 12 hours., Disp: 60 tablet, Rfl: 0 atorvastatin (Lipitor) 40 mg tablet, Take 1 tablet (40 mg) by mouth once daily at bedtime., Disp: 90 tablet, Rfl: 3 iron polysaccharides (Nu-Iron,Niferex) 150 mg iron capsule, Take 1 capsule (150 mg) by mouth once daily. Do not start before August 01, 2023., Disp: 30 capsule, Rfl: 0 lisinopril 2.5 mg tablet, Take 1 tablet (2.5 mg) by mouth once daily., Disp: 30 tablet, Rfl: 11 magnesium oxide (Mag-Ox) 400 mg (241.3 mg magnesium) tablet, Take 1 tablet (400 mg) by mouth once daily. Do not start before August 01, 2023., Disp: 30 tablet, Rfl: 0 metoprolol succinate XL (Toprol-XL) 25 mg 24 hr tablet, Take 0.5 tablets (12.5 mg) by mouth once daily. Do not crush or chew., Disp: 45 tablet, Rfl: 3 oxyCODONE (Roxicodone) 5 mg immediate release tablet, Take 1 tablet (5 mg) by mouth every 6 hours if needed for moderate pain (4 - 6). ICD10: I25.1, G89.18, Disp: 28 tablet, Rfl: 0 Vitals: Vitals: 09/09/23 0902 09/09/23 0903 BP: 122/80 118/70 BP Location: Left arm Right arm Patient Position: Sitting Sitting Pulse: 84 84 Weight: 98.4 kg (217 lb) Height: 1.727 m (5' 8 ) EKG done in office today Review of Systems Neurological: Positive for light-headedness. All other systems reviewed and are negative. Objective Physical Exam Constitutional: Appearance: Normal appearance. HENT: Nose: Nose normal. Neck: Vascular: No carotid bruit. Cardiovascular: Rate and Rhythm: Normal rate. Pulses: Normal pulses. Heart sounds: Normal heart sounds. Pulmonary: Effort: Pulmonary effort is normal. Abdominal: General: Bowel sounds are normal. Palpations: Abdomen is soft. Musculoskeletal: General: Normal range of motion. Cervical back: Normal range of motion. Right lower leg: No edema. Left lower leg: No edema. Skin: General: Skin is warm and dry. Neurological: General: No focal deficit present. Mental Status: He is alert. Psychiatric: Mood and Affect: Mood normal. Behavior: Behavior normal. Thought Content: Thought content normal. Judgment: Judgment normal. Assessment and Plan: 1. Multi-vessel coronary artery stenosis Follow Up In Cardiology Referral to Cardiac Rehab lisinopril 2.5 mg tablet metoprolol succinate XL (Toprol-XL) 25 mg 24 hr tablet 2. High risk medication use 3. Mixed hyperlipidemia 4. Persistent atrial fibrillation (Multi) ECG 12 Lead 5. Anticoagulated 6. Pleural effusion Scribe Attestation By signing my name below, Rody Kirk LPN, Scribe attest that this documentation has been prepared under the direction and in the presence of Leonard Ramirez MD. Provider Attestation - Scribe documentation All medical record entries made by the Scribe were at my direction and personally dictated by me. I have reviewed the chart and agree that the record accurately reflects my personal performance of the history, physical exam, discussion and plan. documented in this encounter [facility] Work Phone: 09-09-2023 Instructions Rody Tasi LPN - 09/09/2023 9:00 AM EDT Please bring all medicines, vitamins, and herbal supplements with you when you come to the office. Prescriptions will not be filled unless you are compliant with your follow up appointments or have a follow up appointment scheduled as per instruction of your physician. Refills should be requested at the time of your visit. BMI was above normal measurement. Current weight: 98.4 kg (217 lb) Weight change since last visit (-) denotes wt loss 1 lbs Weight loss needed to achieve BMI 25: 52.9 Lbs Weight loss needed to achieve BMI 30: 20.1 Lbs Provided instructions on dietary changes. Cardiac rehab phase 2 Lisinopril 2.5 mg daily Toprol xl 12.5 mg daily Follow up 6 months documented in this encounter [facility] Work Phone: 08-25-2023 History of Present illness Narrative Chief Complaint HPI: Mr. Robert Smiley is a 62 y.o. male, who presents for post-operative evaluation. He is now s/p CABGx4 on July 25 2023, and is recovering nicely. He has resumed normal activities and his appetite is returned to normal. He has no chest pain, no shortness of breath and denies palpitations, dizziness, or syncope. Past Medical History: Diagnosis Date Asperger's syndrome Coronary artery disease Gout Hyperlipidemia Myocardial infarct (CMS/HCC) Past Surgical History: Procedure Laterality Date APPENDECTOMY CORONARY STENT PLACEMENT No family history on file. Social History Socioeconomic History Marital status: Unknown Spouse name: Not on file Number of children: Not on file Years of education: Not on file Highest education level: Not on file Occupational History Not on file Tobacco Use Smoking status: Never Smokeless tobacco: Never Vaping Use Vaping status: Never Used Substance and Sexual Activity Alcohol use: Yes Comment: occasional Drug use: Never Sexual activity: Defer Other Topics Concern Not on file Social History Narrative Not on file Social Determinants of Health Financial Resource Strain: Low Risk (07/26/2023) Overall Financial Resource Strain (CARDIA) Difficulty of Paying Living Expenses: Not very hard Food Insecurity: Not on file Transportation Needs: No Transportation Needs (07/26/2023) PRAPARE - Transportation Lack of Transportation (Medical): No Lack of Transportation (Non-Medical): No Physical Activity: Not on file Stress: Not on file Social Connections: Not on file Intimate Partner Violence: Not on file Housing Stability: Low Risk (07/26/2023) Housing Stability Vital Sign Unable to Pay for Housing in the Last Year: No Number of Places Lived in the Last Year: 1 Unstable Housing in the Last Year: No No Known Allergies Outpatient Encounter Medications as of 08/25/2023 Medication Sig Dispense Refill acetaminophen (Tylenol 8 HOUR) 650 mg ER tablet Take 1 tablet (650 mg) by mouth every 8 hours if needed for mild pain (1 - 3). Do not crush, chew, or split. amiodarone (Pacerone) 200 mg tablet Take 1 tablet (200 mg) by mouth once daily. Take 2 tablets by mouth once on July 31. On August 01 decrease to 1 table by mouth daily. Do not start before August 01, 2023. 31 tablet 0 apixaban (Eliquis) 5 mg tablet Take 1 tablet (5 mg) by mouth every 12 hours. 60 tablet 0 aspirin 81 mg chewable tablet Chew 1 tablet (81 mg) once daily. Do not start before August 01, 2023. 90 tablet 3 atorvastatin (Lipitor) 40 mg tablet Take 1 tablet (40 mg) by mouth once daily at bedtime. 90 tablet 3 furosemide (Lasix) 40 mg tablet Take 1 tablet (40 mg) by mouth once daily in the morning for 5 doses. Do not start before August 01, 2023. 5 tablet 0 iron polysaccharides (Nu-Iron,Niferex) 150 mg iron capsule Take 1 capsule (150 mg) by mouth once daily. Do not start before August 01, 2023. 30 capsule 0 magnesium oxide (Mag-Ox) 400 mg (241.3 mg magnesium) tablet Take 1 tablet (400 mg) by mouth once daily. Do not start before August 01, 2023. 30 tablet 0 metoprolol tartrate (Lopressor) 25 mg tablet Take 1 tablet (25 mg) by mouth 3 times a day. (Patient taking differently: Take 1 tablet (25 mg) by mouth once daily. Patient states his BP has dropped to low so he takes 1/2 tab daily) 90 tablet 0 oxyCODONE (Roxicodone) 5 mg immediate release tablet Take 1 tablet (5 mg) by mouth every 6 hours if needed for moderate pain (4 - 6). ICD10: I25.1, G89.18 28 tablet 0 No facility-administered encounter medications on file as of 08/25/2023. Physical Exam Constitutional: General: He is not in acute distress. HENT: Head: Normocephalic. Nose: Nose normal. Mouth/Throat: Mouth: Mucous membranes are moist. Eyes: Pupils: Pupils are equal, round, and reactive to light. Musculoskeletal: Cervical back: Normal range of motion. Neurological: Mental Status: He is alert. Sternum: Stable Wounds OK Lungs: Diminished left lower base' Xray: small left pleural effusion Assessment and Plan: Mr. Robert Smiley is a 62 y.o. male, who is recovering well after surgery. Referral in place for cardiac rehab Ok to drive, ok to return to normal activities Continue to follow up with cardiology Repeat Xray in 2 weeks after lasix for one week He was instructed to call if any issues arise Scar Peck MD 08/25/23 2:11 PM documented in this encounter [facility] Work Phone: 08-17-2023 History of Present illness Narrative Patient here for at BP check ordered by Dr. Ramirez due to dizziness. Dr. Jackson in suite. Patient here due to dizziness . Medication list Updated verbally.no cardiac complaints. Discussed with Tati melendez RN. prior to discharge. Pt state he only takes half tab of metoprolol, and states he feels much better with his current dose of taking half instead of 3 daily. No current complaints of dizziness. I also told pt that he needs to take his eliquis twice a day. To Dr. Ramirez for review Vitals: 08/17/23 1147 08/17/23 1148 08/17/23 1149 BP: 110/82 90/68 96/70 BP Location: Left arm Left arm Right arm Patient Position: Lying Sitting Sitting Pulse: 77 Weight: 101 kg (223 lb 3.2 oz) Height: 1.727 m (5' 8 ) documented in this encounter [facility] Work Phone: 08-11-2023 History of Present illness Narrative This 62 year old status post CABG X [address] Peck at [facility] on 07/25/23. Patient discharged from hospital on 07/31/23. Patient seen in office as a nurse post operative visit. Midline sternal incision is well approximated with no redness or drainage noted. Sutures X 2 removed from previous chest tubes sites which remain well approximated. Right leg vein harvest site is well approximated with no redness or drainage noted. He complains of having some occasional numbness and tingling of left hand. No vein harvest was done from the left radial artery but he had an IV in his left hand he is stating he thinks this is the cause of this. I gave him some left hand exercise to perform and follow up with his PCP if it does not get any better. Lungs are clear bilaterally. He has no complaints of pain at the present time. All medications reviewed and all questions answered. He has no edema of the lower extremities and pedal pulses are palpable bilaterally. He has been taking short walks with no shortness of breath. Heart sounds are normal. Bowel sounds are active with patient reporting normal bowel movements. His appetite has been good with diet reviewed and all questions answered. Instructed patient to follow up with No one from [facility], PT, or OT has come to see patient so I will notify them. His board of directors and primary care physician. He has a follow up with Dr Peck with a chest x-ray prior to his visit. Patient instructed to call with any questions or concerns. documented in this encounter [facility] Work Phone: 07-31-2023 Miscellaneous Notes The patient's goals for the shift include safety The clinical goals for the shift include Patient remains hemodynamically stable throughout shift. Plans for patient to DC home today The patient's goals for the shift include safety The clinical goals for the shift include Patient remains hemodynamically stable throughout shift. Problem: Pain Pt educated in pain scale as appropriate for understanding and condition. Baseline level of tolerable pain assessed and documented. Interventions reassessed at proper interval for effectiveness and documented per policy. Goal: My pain/discomfort is manageable Outcome: Progressing Problem: Daily Care Pt oriented to unitroutine for vitals and assessments, location of bed controls and call michael system demonstrated, reinforced as neccessary, oral and bodily hygiene assured at regular intervals and as needed. ROM of limbs demonstrating weakness performed. Diversionary activities provided, personal effects, phone and visual or hearing aides kept in reach on bedside table . Goal: Daily care needs are met Outcome: Progressing Problem: Discharge Barriers Pt information obtained at admission about typical living arrangement and level of community support that pt has access to. Changes in level of function evaluated by multidisciplinary team and plan made for optimal level of pt independence and function once discharged from this hospital facility. Family or significant social support personnel sought for corroborating input if pt unable to speak for self or appears to be less than forthcoming with factual report of situation. Goal: My discharge needs are met Outcome: Progressing Problem: ACS/CP/NSTEMI/STEMI Labs obtained and treated as appropriate daily. Goal: Lab values return to normal range Outcome: Progressing Problem: ACS/CP/NSTEMI/STEMI Ambulates to independently, no episodes of anginal chest pain, just soft tissue discomfort with coughing reported. Goal: Promote self management Outcome: Progressing Problem: Arrythmia/Dysrhythmia On telemetry with no alarm events related to tachycardia or bradycardia. Goal: No evidence of post procedure complications Outcome: Progressing The patient's goals for the shift include safety The clinical goals for the shift include Vital signs will remain WNL throughout shift Over the shift, the patient did not make progress toward the following goals. Barriers to progression include rhythm change to atrial fib. Recommendations to address these barriers include continue ordered medications. [facility] SIGNIFICANT EVENT NOTE: Date: 07/26/2023 Patient: Robert Smiley Date of : 1960 Admit Date: 07/19/2023 Called to bedside by nursing at 2340 due to tachycardia with HR 130-140. On my evaluation of telemetry patient is in Afib with RVR. This was confirmed by STAT ECG. Exam is unremarkable, patient largely asymptomatic. Labile BP with MAP ~ 60 but no significant hemodynamic instability. Action Plan: -- Give 150mg amiodarone bolus -- Follow with amiodarone infusion at 1mg/min -- Given his stability, will monitor tonight and update CTS in morning CHRISTY Richards Pulmonary & Critical Care Medicine 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 (CMS/HCC) [I25.118] Post-op Diagnosis * Coronary artery disease of still[place] artery of still[place] heart with stable angina pectoris (CMS/HCC) [I25.118] Procedures Creation Bypass Graft Coronary Artery X 4 (estes/lad, svg-cx-pda, svg-diag); [place]ARCUS; [place] 234[address] - [place] CABG W/ARTERIAL GRAFT TWO ARTERIAL GRAFTS CABGx4 ESTES- LAD SVG-D1 SVG-CX-PDA Surgeons * Scar Peck - Primary Resident/Fellow/Other Document Control Manager: Surgeon(s) and Role: Procedure Summary Anesthesia: General ASA: IV Anesthesia Staff: CRATE OPENER: Shirley Osborn APRN-CRATE OPENER Sales And Service Consultant: Dhaval Laboy Anesthesia Break User: Sana Tripp MD Estimated Blood Loss: 250mL Intra-op Medications: Administrations occurring from 0730 to 1400 on 07/25/23: Medication Name Total Dose papaverine injection 60 mg sodium chloride 0.9 % irrigation solution 4,000 mL vancomycin (Vancocin) vial for injection 4 g heparin 10,000 Units in sodium chloride 0.9 % 1,000 mL irrigation 2,000 mL alum-mag hydroxide-simeth (Mylanta) 200-200-20 mg/5 mL oral suspension 5 mL Cannot be calculated aminocaproic acid (Amicar) infusion 13.75 g aspirin EC tablet 81 mg Cannot be calculated atorvastatin (Lipitor) tablet 40 mg Cannot be calculated chlorhexidine (Peridex) 0.12 % solution 15 mL Cannot be calculated heparin (porcine) injection 2,000-4,000 Units Cannot be calculated isosorbide mononitrate ER (Imdur) 24 hr tablet 30 mg Cannot be calculated lactated Ringer's infusion Cannot be calculated melatonin tablet 3 mg Cannot be calculated metoprolol tartrate (Lopressor) tablet 25 mg Cannot be calculated mupirocin (Bactroban) 2 % ointment Cannot be calculated nitroglycerin (Nitrostat) SL tablet 0.4 mg Cannot be calculated polyethylene glycol (Glycolax, Miralax) packet 17 g Cannot be calculated heparin 1,000 unit/mL injection 41,000 Units 41,000 Units vancomycin (Vancocin) in dextrose 5 % water (D5W) 500 mL IV 1,500 mg 1,500 mg Anesthesia Record Intraprocedure I/O Totals Intake Norepinephrine Drip 0.00 mL The total shown is the total volume documented since Anesthesia Start was filed. Aminocaproic Acid Drip 0.00 mL The total shown is the total volume documented since Anesthesia Start was filed. Propofol Drip 0.00 mL The total shown is the total volume documented since Anesthesia Start was filed. NaCl 0.9 % infusion 1000.00 mL lactated Ringer's infusion 1000.00 mL Cell Saver 248 mL Total Intake 2248 mL Output Urine 900 mL Total Output 900 mL Net Net Volume 1348 mL Specimen: No specimens collected Staff: Livestock Auctioneer: Mellissa Kapoor RN Relief Livestock Auctioneer: Lanre Ferro RN Scrub Person: Vielka Syed; Precious Pike RN Drains and/or Catheters: Chest Tube 1 Mediastinal 32 Fr (Active) Chest Tube 2 Left Pleural 28 Fr (Active) Urethral Catheter Non-latex 16 Fr. (Active) Tourniquet Times: Implants: Implants Type Name Action Serial No. Heart Valve CARDIOPLEGIA SET - [id number] Implanted Indications: Robert Smiley is an 62 y.o. male who is having surgery for Coronary artery disease of stillaguamish artery of stillaguam[place] heart with stable angina pectoris ([facility]) [I25.118]. The patient was seen in the preoperative area. The risks, benefits, complications, treatment options, non-operative alternatives, expected recovery and outcomes were discussed with the patient. The patient concurred with the proposed plan, giving informed consent. The patient has been actively warmed in preoperative area. Preoperative antibiotics have been ordered and given within 1 hours of incision. Venous thrombosis prophylaxis are not indicated. Procedure Details: ESTES- LAD SVG-D1 SVG-CX-PDA The patient was brought to the operating room, placed on the operating table in supine position. General endotracheal anesthesia and hemodynamic monitoring were established. The patient was prepped and draped in standard fashion. A median sternotomy was performed. The ESTES was harvested in a pedicled manner. The vein was harvested endoscopically from the right lower limb. The thymus was divided and the pericardium was opened. The ascending aorta was palpated and it was without evidence of atherosclerosis. The patient was heparinized. The ascending aorta and right atrium were cannulated for cardiopulmonary bypass and antegrade cannula was placed. The patient was placed on cardiopulmonary bypass, the ascending aorta was crossclamped, and the heart was arrested and protected with cold blood cardioplegia. During the remainder of the cross-clamp time, cold blood cardioplegia was administered every 15 to 20 minutes. GRAFTS: CABGx4 Graft 1, PDA: This vessel was opened proximally, which was 1.2 mm in diameter, free from disease at the point of entry. A length of reverse saphenous vein was anastomosed end-to-side using continuous 7-0 Prolene. Graft 2, CX: This vessel was opened in its mid course which was 1.5 mm in diameter, free from disease at the point of entry. The length of reverse saphenous vein was anastomosed [id number] using continuous 7-0 Prolene. Sequential with the PDA Graft 3, D1: This vessel was opened proximally, which was 1.2 mm in diameter, free from disease at the point of entry. A length of reverse saphenous vein was anastomosed end-to-side using continuous 7-0 Prolene. Graft 4, LAD: This vessel was opened in its mid to distal third, which was 1.2 mm in diameter, free from disease at the point of entry. The ESTES was anastomosed end-to-side using continuous 8-0 Prolene. The proximal end of the vein grafts was anastomosed to punch holes into the ascending aorta using continuous 6-0 Prolene sutures. Assessment of graft flows demonstrated good flows in all the grafts. Cardiopulmonary bypass was weaned uneventfully. A ventricular pacing wire was applied. Protamine was administered to reverse systemic anticoagulation. Hemostasis was secured. Two drains were inserted, 1 in the left pleural space and 1 in the mediastinum. The sternum was closed with interrupted stainless steel wires and subcutaneous layers were closed using Vicryl and skin was closed using subcuticular Vicryl. The patient remained stable, was transferred to the Cardiothoracic Intensive Care Unit in stable cardiorespiratory condition. I was available for all aspects of procedure preoperatively and postoperatively Complications: None; patient tolerated the procedure well. Disposition: ICU - intubated and hemodynamically stable. Condition: stable Additional Details: BYPASS: 148 minutes CROSSCLAMP: 135 EBL: 250 mL Attending Attestation: I was present and scrubbed for the entire procedure. Scar Peck The patient's goals for the shift include safety The clinical goals for the shift include no complaints of chest pain Problem: Pain Goal: My pain/discomfort is manageable 07/24/[id number] by India Lopez RN Outcome: Progressing 07/24/[id number] by India Lopez RN Outcome: Progressing Problem: Safety Goal: Patient will be injury free during hospitalization Outcome: Progressing The patient's goals for the shift include maintain safety The clinical goals for the shift include maintain safety Problem: Pain Goal: My pain/discomfort is manageable Outcome: Progressing Problem: Safety Goal: Patient will be injury free during hospitalization Outcome: Progressing Goal: I will remain free of falls Outcome: Progressing Problem: Daily Care Goal: Daily care needs are met Outcome: Progressing Problem: Psychosocial Needs Goal: Demonstrates ability to cope with hospitalization/illness Outcome: Progressing Goal: Collaborate with me, my family, and caregiver to identify my specific goals Outcome: Progressing Problem: Discharge Barriers Goal: My discharge needs are met Outcome: Progressing The patient's goals for the shift include The clinical goals for the shift include Patient will have no c/o chest pain throughout shift. This was not actual patient intake. Pt intake was 0 at this time. Problem: Pain Goal: My pain/discomfort is manageable Outcome: Progressing Problem: Safety Goal: Patient will be injury free during hospitalization Outcome: Progressing Goal: I will remain free of falls Outcome: Progressing Problem: Daily Care Goal: Daily care needs are met Outcome: Progressing Problem: Psychosocial Needs Goal: Demonstrates ability to cope with hospitalization/illness Outcome: Progressing Goal: Collaborate with me, my family, and caregiver to identify my specific goals Outcome: Progressing Problem: Discharge Barriers Goal: My discharge needs are met Outcome: Progressing The patient's goals for the shift include The clinical goals for the shift include Patient will remain free of chest pain this shift NSTEMI Hx of CAD s/p PCI (2017) HTN DLD -p/w anginal CP to OSH, found to have NSTEMI, cath showed diffuse triple vessel disease, and transferred to [facility] for CABG eval -TTE here showed normal LVEF, no RWMA, no sig valvulopathy Plan: -CTS following, tentative plan for CABG on Mon as needs x5d Plavix washout (last dose 07/17), preoperative testing done -cardiology following -ASA, high intensity statin, hold Plavix for now -hep gtt -metoprolol, Imdur -tele monitoring Vte ppx already on hep gtt Seen and examined. Denies CP, SOB. Agree with H&P. Cont current medications as ordered. Awaiting cardiology and CTS consults. Problem: Pain Goal: My pain/discomfort is manageable Outcome: Progressing Problem: Safety Goal: Patient will be injury free during hospitalization Outcome: Progressing Goal: I will remain free of falls Outcome: Progressing Problem: Daily Care Goal: Daily care needs are met Outcome: Progressing Problem: Psychosocial Needs Goal: Demonstrates ability to cope with hospitalization/illness Outcome: Progressing Goal: Collaborate with me, my family, and caregiver to identify my specific goals Outcome: Progressing Problem: Discharge Barriers Goal: My discharge needs are met Outcome: Progressing The patient's goals for the shift include The clinical goals for the shift include Patient will remain free of chest pain this shift documented in this encounter [facility] Work Phone: 03-17-2024 History of Present illness Narrative Images from the original note were not included. [facility] Progress Note Rounding ANTONIO/Fire Hose Curer: Dev Ding MD, Dr. Heraclio Benitez Primary Fire Hose Curer: Dr Horton Date: 07/31/2023 Patient: Robert Smiley Date of : 1960 Admit Date: 07/19/2023 SUBJECTIVE: 07/31/2023: Patient is up and about in his room. He feels well. No chest pain or shortness of breath. 07/30/23: Resting comfortably in the chair. He denies chest pain or shortness of breath. He is alert and oriented x 3. He had recurrent atrial fibrillation yesterday requiring an additional IV amiodarone bolus. Metoprolol dosing frequency was increased to 3 times daily. 07/29/23 Alert and oriented x 3. Up in chair. In normal sinus rhythm this morning. Started on p.o. amiodarone. BP has been stable. Denies any increased chest pain or shortness of breath. Fluid balance negative. 07/28/23 Alert and oriented x 3. Unfortunately was in sinus rhythm but converted back to A-fib with RVR. BPs been stable. Denies any increased chest pain or shortness of breath. 07/27/23 Alert and oriented x 3. Postop day 2 from CABG. Up in chair. Minimal pain. Went to A-fib with RVR overnight. Started on amiodarone infusion. Converted this morning to sinus rhythm. Still seems euvolemic in regards to his weights. 07/26/23 Alert and oriented x 3. Postop day 1 from CABG. Remains on small amount of norepinephrine. Up in chair. Minimal pain. Seems to be on the dry side. 07/24/2023: Patient remained stable hemodynamically with sinus rhythm and no significant arrhythmias overnight. Is scheduled for CABG tomorrow 07/23/23: Patient remains in status quo, denies any chest pain or shortness of breath with ambulation. He is awaiting CABG on Tuesday and he continues to maintain sinus rhythm with occasional PVCs. 07/22/23 Patient is awake and alert and oriented x 3 he states that he is not having any chest pain I spoke to him at length he is well-informed of plan of care that we are going to do the CABG on Tuesday answered all of his questions Telemetry is normal sinus rhythm with a Ke lesional PVC 07/21/23 Patient is awake and alert and oriented x 3. States he had a little indigestion this morning spoke to him at length he denies any chest pain or shortness of breath Telemetry is normal sinus rhythm with occasional PVC EKG is normal sinus rhythm has ST depression in inferior 07/20/23 Patient is resting quietly spoke to him at length he discussed at length with CT surgery they are planning for CABG on Tuesday He denies chest pain or shortness of breath Telemetry is normal sinus rhythm with occasional PVCs EKG is normal sinus rhythm no acute change 07/19/23 Robert Smiley is a 62 y.o. male patient who is being at the request of Dr. Salgado for inpatient consultation of angina. He was admitted on 07/19/2023. Previous [facility] and [facility] records have been reviewed in detail. Patient with a history of CAD, hypertension dyslipidemia was transferred from [facility] for CABG evaluation. On Tuesday the patient developed chest pain that radiated down his left arm along with chest pain he went to [facility] they transferred him to [facility] for heart catheterization LAD 95% Circumflex 95% RCA 95 to 99% Patient states they put him on a heparin drip send and will be here for CABG consult. He states he does not have any chest pain, fever, chills, nausea, vomiting, PND, orthopnea, claudications at this present time. He states that he has had a couple stents in the past. /EKG is normal sinus rhythm has ST depression in inferior/ VITALS: Vitals: 07/31/23 0039 07/31/23 0500 07/31/23 0535 07/31/23 0724 BP: 107/59 110/59 112/59 BP Location: Left arm Patient Position: Lying Pulse: 83 77 Resp: 19 18 Temp: 35.9 C (96.6 F) 36.4 C (97.5 F) 36.3 C (97.3 F) TempSrc: Temporal SpO2: 96% 95% 97% Weight: 106 kg (232 lb 12.9 oz) Height: Intake/Output Summary (Last 24 hours) at 07/31/2023 1257 Last data filed at 07/31/2023 0138 Gross per 24 hour Intake 340 ml Output 1600 ml Net -1260 ml Wt Readings from Last 4 Encounters: 07/31/23 106 kg (232 lb 12.9 oz) 07/18/23 108 kg (239 lb) CURRENT HOSPITAL MEDICATIONS: [START ON 08/02/2023] amiodarone, 200 mg, oral, Daily amiodarone, 400 mg, oral, Daily apixaban, 5 mg, oral, q12h aspirin, 81 mg, oral, Daily atorvastatin, 40 mg, oral, Nightly colchicine, 0.6 mg, oral, q12h [START ON 08/01/2023] furosemide, 40 mg, oral, Daily iron polysaccharides, 150 mg, oral, Daily magnesium oxide, 400 mg, oral, Daily metoprolol tartrate, 25 mg, oral, TID mupirocin, , Topical, BID [START ON 08/01/2023] potassium chloride CR, 20 mEq, oral, Daily Current Outpatient Medications Medication Instructions [START ON 08/01/2023] amiodarone (PACERONE) 200 mg, oral, Daily, Take 2 tablets by mouth once on July 31. On August 01 decrease to 1 table by mouth daily. apixaban (ELIQUIS) 5 mg, oral, Every 12 hours [START ON 08/01/2023] aspirin 81 mg, oral, Daily atorvastatin (LIPITOR) 40 mg, oral, Nightly clopidogrel (PLAVIX) 75 mg, oral, Daily [START ON 08/01/2023] furosemide (LASIX) 40 mg, oral, Every morning [START ON 08/01/2023] iron polysaccharides (NU-IRON,NIFEREX) 150 mg, oral, Daily [START ON 08/01/2023] magnesium oxide (MAG-OX) 400 mg, oral, Daily meloxicam (MOBIC) 7.5 mg, oral, Daily, Unsure if dose is correct
metoprolol tartrate (LOPRESSOR) 25 mg, oral, 3 times daily oxyCODONE (ROXICODONE) 5 mg, oral, Every 6 hours PRN, ICD10: I25.1, G89.18 [START ON 08/01/2023] potassium chloride CR (Klor-Con M20) 20 mEq ER tablet 20 mEq, oral, Daily, Do not crush or chew. PHYSICAL EXAMINATION: GENERAL: Well developed, well nourished, in no acute distress. CHEST: Dressing CDI, chest tubes. NEURO/PSYCH: Alert and oriented times three with approppriate behavior and responses. NECK: Supple, no JVD, no bruit. LUNGS: Diminished. HEART: Rate and rhythm regular with no evident murmur, no gallop appreciated. EXTREMITIES: Warm with good color, no clubbing or cyanosis. There is no edema noted. PERIPHERAL VASCULAR: Pulses present and equally palpable; 2+ throughout. LAB DATA: CBC: Results from last 7 days Lab Units 07/31/23 04207/30/23 0537 07/29/23 0405 07/28/23 0410 07/27/23 0340 WBC AUTO x10*3/uL 8.2 8.1 9.7 < > 8.3 RBC AUTO x10*6/uL 3.28* 3.22* 3.04* < > 3.05* HEMOGLOBIN g/dL 9.9* 9.7* 9.1* < > 9.4* HEMATOCRIT % 30.9* 29.4* 27.6* < > 28.6* MCV fL 94 91 91 < > 94 MCH pg 30.2 30.1 29.9 < > 30.8 MCHC g/dL 32.0 33.0 33.0 < > 32.9 RDW % 13.6 13.5 13.6 < > 13.9 PLATELETS AUTO x10*3/uL 239 236 199 < > 86* MPV fL -- -- -- -- 11.6* < > = values in this interval not displayed. CMP: Results from last 7 days Lab Units 07/31/23 0422 07/30/23 0537 07/29/23 0405 07/25/23 1455 07/25/23 0522 SODIUM mmol/L 137 137 137 < > 137 POTASSIUM mmol/L 4.0 4.2 4.1 < > 4.1 CHLORIDE mmol/L 106 105 104 < > 105 CO2 mmol/L 22 24 25 < > 23 BUN mg/dL 23 22 22 < > 22 CREATININE mg/dL 1.12 1.06 1.14 < > 1.16 GLUCOSE mg/dL 96 93 101* < > 95 PROTEIN TOTAL g/dL 6.1* -- -- -- 7.0 CALCIUM mg/dL 8.5* 8.4* 8.2* < > 9.1 BILIRUBIN TOTAL mg/dL 0.7 -- -- -- 0.6 ALK PHOS U/L 54 -- -- -- 70 AST U/L 17 -- -- -- 54* ALT U/L 15 -- -- -- 73* < > = values in this interval not displayed. BMP: Results from last 7 days Lab Units 07/31/2342107/30/23 0507/29/23 0405 SODIUM mmol/L 137 137 137 POTASSIUM mmol/L 4.0 4.2 4.1 CHLORIDE mmol/L 106 105 104 CO2 mmol/L 22 24 25 BUN mg/dL 23 22 22 CREATININE mg/dL 1.12 1.06 1.14 CALCIUM mg/dL 8.5* 8.4* 8.2* GLUCOSE mg/dL 96 93 101* Magnesium: Results from last 7 days Lab Units 07/31/2342107/30/2353607/29/23 0405 MAGNESIUM mg/dL 2.25 2.43* 2.03 DIAGNOSTIC TESTING: ECG 12 Lead Result Date: 07/20/2023 Normal sinus rhythm Possible Inferior infarct (cited on or before 19-JUL-2023) Abnormal ECG When compared with ECG of 19-JUL-2023 07:06, No significant change was found Transthoracic Echo (TTE) Complete Result Date: 07/19/[address] [address] TRANSTHORACIC ECHOCARDIOGRAM REPORT Patient Name: ROBERT SMILEY Reading Physician: [id number] Dev Ding MD, [facility] CONCLUSIONS: 1. Left ventricular systolic function is normal with a 55-60% estimated ejection fraction. 2. Spectral Doppler shows an impaired relaxation pattern of left ventricular diastolic filling. 3. Normal right ventricular chamber size and function. 4. Trivial tricuspid regurgitation. 5. No previous available for comparison. RADIOLOGY: XR chest 2 views Final Result 1. Improved aeration of the lungs with likely smaller but residual left basilar atelectasis and/or infiltrate. MACRO: None Signed by: Aleida Horvath 07/31/2023 7:37 AM Dictation workstation: [id number] XR chest 1 view Final Result 1. Increased irregular left basilar opacification may represent a combination of atelectasis, infiltrate and possible small volume effusion. 2. Mild right basilar atelectasis. MACRO: None. Signed by: Hector Smith 07/30/2023 2:27 PM Dictation workstation: [id number] XR chest 1 view Final Result NO ACUTE DISEASE IN THE CHEST MACRO: None Signed by: Isaiah Cross 07/29/2023 7:58 AM Dictation workstation: [id number] XR chest 1 view Final Result The right jugular central venous catheter is been removed. Bibasilar atelectatic changes similar to prior exam. MACRO: None Signed by: Hiren Vizcarra 07/28/2023 7:46 AM Dictation workstation: [id number] XR chest 1 view Final Result 1. No significant interval change. MACRO: None. Signed by: Hector Smith 07/27/2023 8:05 AM Dictation workstation: [id number] XR chest 1 view Final Result No pneumothorax MACRO: None Signed by: Isaiah Cross 07/26/2023 3:01 PM Dictation workstation: [id number] XR chest 1 view Final Result 1. Low inspiratory volume. Bibasilar infiltrates and/or atelectasis, left greater than right, similar to prior. MACRO: None. Signed by: Hector Smith 07/26/2023 8:21 AM Dictation workstation: [id number] XR chest 1 view Final Result Postop changes. Question of basilar infiltrate or atelectasis. A nasogastric tube may be present. The course and location of the tip is uncertain. MACRO: none Signed by: Janet Pate 07/25/2023 4:09 PM Dictation workstation: [id number] XR chest 1 view Final Result 1. Interval [place] catheter placement tip of the proximal right pulmonary artery as discussed above. No pneumothorax. MACRO: None Signed by: Bjorn Sandoval 07/25/2023 10:38 AM Dictation workstation: [id number] Anesthesia Intraoperative Transesophageal Echocardiogram Final Result Carotid duplex bilateral Final Result Normal flow pattern without evidence of hemodynamically relevant stenosis or atheromatous plaques in the visualized portions of the carotid circulation as described above. MACRO: None Signed by: Hector Smith 07/19/2023 3:43 PM Dictation workstation: [id number] XR chest 2 views Final Result 1. Mild left basilar atelectasis. No focal consolidation. MACRO: None. Signed by: Hector Smith 07/19/2023 3:41 PM Dictation workstation: [id number] CT chest wo IV contrast Final Result 1. No thoracic aortic aneurysm. Ascending thoracic aorta measures 3.1 cm in diameter. 2. Irregular calcification at the aortic root level. No evidence of calcification in the ascending thoracic aorta. 3. Cholelithiasis. No pericholecystic inflammation. No biliary dilation. MACRO: None. 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 62-year-old gentleman who was transferred from [facility] for possible angina. He has a history of CAD hypertension dyslipidemia and presented to the hospital with unstable angina with radiation to the left arm. Emergent cardiac catheterization showed severe triple-vessel disease as noted above with 95% LAD, left circumflex as well as RCA. Patient was transferred for CABG. He is currently chest pain-free. EKG shows sinus rhythm with inferolateral ST depression. Cardiac exam reveals regular first and second heart sound, no murmurs are heard. Chest is clear to auscultation. ASSESSMENT AND PLAN: 1. CAD: With severe triple-vessel disease, awaiting cardiac evaluation. In the meantime, we will get an echocardiogram to rule out any significant valvular abnormalities and we will hold his Plavix for impending surgery. Full recommendations to be based on CV surgical evaluation. 2.Hypertension: We will continue to optimize blood pressure control. 3. Dyslipidemia: Continue with her current high intensity lipid-lowering therapy. DUSTIN 07/20/23 Tele monitoring Continue the heparin drip Plan for CABG on Tuesday Daily EKGs Further recommendations per Dr Emmanuel Ferro [facility] Of note, this documentation is completed using the [employer] Dictation system (voice recognition software). There may be spelling and/or grammatical errors that were not corrected prior to final submission. Please do not hesitate to call with questions. Patient seen and examined in conjunction with Troy Ferro APRN and agree with the evaluation as noted above. Patient remains in status quo, continues to be chest pain-free. He is awaiting CABG tentatively scheduled for next week Tuesday pending washout of Plavix. Preop echo shows normal LV function with no gross valvular abnormalities as noted above. Will continue with her other current cardiac medications and plan for surgery as scheduled. AK 07/21/23 Tele monitoring Aspirin 81 mg daily Lipitor 40 mg daily Imdur 30 mg daily Lopressor 25 mg p.o. twice daily Continue the heparin drip Plan for CABG on Tuesday Further recommendations per Dr Benitez Patient seen and examined in conjunction with Troy Ferro APRN and agree with the evaluation as noted above. Patient continues to do well with no recurrent chest pain. Awaiting surgery as scheduled. Continues to maintain sinus rhythm with no significant arrhythmias on the monitor. Will continue current cardiac medications and follow the patient postoperatively. AKA 07/22/23 Tele monitoring Continue the heparin drip for now Plan for CABG on Tuesday Further recommendations per Dr Benitez 07/23/23: Patient continues to do well and remains in status quo with no chest pain or shortness of breath with ambulation. Awaiting CABG on Tuesday as scheduled. We will continue with current medications and follow the patient postoperatively. AKA 07/24/23 Patient continues to do well with no recurrent chest pain or significant shortness of breath. He is awaiting CABG scheduled for tomorrow we will continue with current medications and follow the patient postoperatively. AKA 07/26/23 Alert and oriented x 3. Up in chair. Very hard of hearing but conversing appropriately. Denies any significant chest pain or shortness of breath. Still on small amount of norepinephrine which is weaning off. Receiving albumin this morning. Plan to remove chest tubes today along with PA catheter Gentle hydration, monitor strict I's and O's and daily weights Initiate beta-roman when BP allows Will continue to follow along 07/27/23 Alert and oriented x 3. Up in chair. Very hard of hearing but conversing appropriately. Denies any significant chest pain or shortness of breath. Currently on 2 L nasal cannula with good oxygen saturation of 99% Chest tubes removed yesterday Would benefit from central line and Mac removal today Low-dose beta-roman added by cardiac surgery and ICU service Labile BP. Seems euvolemic and no gross fluid overload. Would probably hold off on diuresis but will defer to ICU cardiac surgery team Continue amiodarone infusion for now. Remains in normal sinus rhythm. Will continue to follow along Thom Melgar [facility] Adult Gerontology Acute Care Nurse Practitioner [facility] [phone] 07/28/23 Alert and oriented x 3. Up in chair. Very hard of hearing but conversing appropriately. Denies any significant chest pain or shortness of breath. Currently on room air with good oxygen saturation Monitor electrolytes, keep potassium greater than 4 and using greater than 2 Low-dose beta-roman added by cardiac surgery and ICU service BP better, continue to monitor Converted to normal sinus rhythm however converted back to A-fib with RVR earlier this morning. Patient received bolus of amiodarone and plan to continue drip. Plan will be switched to oral when able. Will continue to follow along Patient had recurrent episode of A-fib with RVR requiring IV amiodarone bolus and is currently on amiodarone gtt.. Will continue with the drip for now and overlap with p.o. amiodarone 200 mg twice a day. In view of recurrent A-fib, patient will need initiation of oral anticoagulation and we will check with CV surgery 1 this can be started. He can potentially be transferred to telemetry floor once he is off of IV amiodarone. AKA 07/29/23 Alert and oriented x 3. Up in chair. Very hard of hearing but conversing appropriately. Denies any significant chest pain or shortness of breath. Currently on room air with good oxygen saturation Monitor electrolytes, keep potassium greater than 4 and using greater than 2 Continue beta-roman and amiodarone. Had bowel movement BP better, continue to monitor Remains in normal sinus rhythm. [id number] score of 2, would recommend long-term anticoagulation with Eliquis. Defer to cardiac surgery team. Will continue to follow along Thom Melgar [facility] Adult Gerontology Acute Care Nurse Practitioner [facility] [phone] 07/29/23 Patient had brief episode of recurrent paroxysmal atrial fibrillation but is now in sinus rhythm, off amiodarone gtt.. He has been ambulating with no significant shortness of breath. There are no significant ventricular arrhythmias overnight. At this time, patient can be transferred to the telemetry floor and we will continue with p.o. amiodarone and Lopressor. Will start Eliquis for long-term anticoagulation. AKA 07/30/23: Resting comfortably in the chair. He denies chest pain or shortness of breath. He is alert and oriented x 3. He had recurrent atrial fibrillation yesterday requiring an additional IV amiodarone bolus. Metoprolol dosing frequency was increased to 3 times daily. His vital signs are currently stable. Approximate 500 cc negative fluid balance yesterday. Current weight is 237 pounds. Patient states a good weight for him at home is about 230 to 232 pounds. His cardiac rhythm is regular. Few bilateral basilar rales. He is receiving IV furosemide. He currently is on metoprolol 25 mg 3 times daily. Increase activity. Monitor rhythm overnight. Possible discharge tomorrow. 07/31/2023: Patient is up and about in his room. He feels well. No chest pain or shortness of breath. No recurrent atrial fibrillation. Vital signs are stable. Cardiac rhythm is regular. Lungs are clear. No significant peripheral edema. Hemoglobin is 9.9. Basic metabolic profile is normal. He remains in normal sinus rhythm. Okay from a cardiac standpoint to discharge home. Can change metoprolol to tartrate to Toprol-XL 100 mg daily. Continue amiodarone and Eliquis. Follow-up with Dr. Horton as scheduled. Images from the original note were not included. [facility] Progress Note Rounding ANTONIO/Fire Hose Curer: Dev Ding MD, Dr. Heraclio Benitez Primary Fire Hose Curer: Dr Horton Date: 07/30/2023 Patient: Robert Smiley Date of : 1960 Admit Date: 07/19/2023 SUBJECTIVE: 07/30/23: Resting comfortably in the chair. He denies chest pain or shortness of breath. He is alert and oriented x 3. He had recurrent atrial fibrillation yesterday requiring an additional IV amiodarone bolus. Metoprolol dosing frequency was increased to 3 times daily. 07/29/23 Alert and oriented x 3. Up in chair. In normal sinus rhythm this morning. Started on p.o. amiodarone. BP has been stable. Denies any increased chest pain or shortness of breath. Fluid balance negative. 07/28/23 Alert and oriented x 3. Unfortunately was in sinus rhythm but converted back to A-fib with RVR. BPs been stable. Denies any increased chest pain or shortness of breath. 07/27/23 Alert and oriented x 3. Postop day 2 from CABG. Up in chair. Minimal pain. Went to A-fib with RVR overnight. Started on amiodarone infusion. Converted this morning to sinus rhythm. Still seems euvolemic in regards to his weights. 07/26/23 Alert and oriented x 3. Postop day 1 from CABG. Remains on small amount of norepinephrine. Up in chair. Minimal pain. Seems to be on the dry side. 07/24/2023: Patient remained stable hemodynamically with sinus rhythm and no significant arrhythmias overnight. Is scheduled for CABG tomorrow 07/23/23: Patient remains in status quo, denies any chest pain or shortness of breath with ambulation. He is awaiting CABG on Tuesday and he continues to maintain sinus rhythm with occasional PVCs. 07/22/23 Patient is awake and alert and oriented x 3 he states that he is not having any chest pain I spoke to him at length he is well-informed of plan of care that we are going to do the CABG on Tuesday answered all of his questions Telemetry is normal sinus rhythm with a Ke lesional PVC 07/21/23 Patient is awake and alert and oriented x 3. States he had a little indigestion this morning spoke to him at length he denies any chest pain or shortness of breath Telemetry is normal sinus rhythm with occasional PVC EKG is normal sinus rhythm has ST depression in inferior 07/20/23 Patient is resting quietly spoke to him at length he discussed at length with CT surgery they are planning for CABG on Tuesday He denies chest pain or shortness of breath Telemetry is normal sinus rhythm with occasional PVCs EKG is normal sinus rhythm no acute change 07/19/23 Robert Smiley is a 62 y.o. male patient who is being at the request of Dr. Salgado for inpatient consultation of angina. He was admitted on 07/19/2023. Previous [facility] and [facility] records have been reviewed in detail. Patient with a history of CAD, hypertension dyslipidemia was transferred from [facility] for CABG evaluation. On Tuesday the patient developed chest pain that radiated down his left arm along with chest pain he went to [facility] they transferred him to [facility] for heart catheterization LAD 95% Circumflex 95% RCA 95 to 99% Patient states they put him on a heparin drip send and will be here for CABG consult. He states he does not have any chest pain, fever, chills, nausea, vomiting, PND, orthopnea, claudications at this present time. He states that he has had a couple stents in the past. /EKG is normal sinus rhythm has ST depression in inferior/ VITALS: Vitals: 07/30/23 0023 07/30/23 0610 07/30/23 0807 07/30/23 1117 BP: 101/60 111/56 99/58 BP Location: Right arm Right arm Patient Position: Lying Lying Pulse: 73 82 79 Resp: 18 18 18 Temp: 36.4 C (97.5 F) 36.3 C (97.3 F) 36 C (96.8 F) TempSrc: Temporal Temporal SpO2: 96% 98% 97% Weight: 108 kg (237 lb 7 oz) Height: Intake/Output Summary (Last 24 hours) at 07/30/2023 1341 Last data filed at 07/30/2023 0610 Gross per 24 hour Intake 858 ml Output 675 ml Net 183 ml Wt Readings from Last 4 Encounters: 07/30/23 108 kg (237 lb 7 oz) 07/18/23 108 kg (239 lb) CURRENT HOSPITAL MEDICATIONS: amiodarone, 400 mg, oral, Daily apixaban, 5 mg, oral, q12h aspirin, 81 mg, oral, Daily atorvastatin, 40 mg, oral, Nightly colchicine, 0.6 mg, oral, q12h furosemide, 40 mg, intravenous, Daily iron polysaccharides, 150 mg, oral, Daily magnesium oxide, 400 mg, oral, Daily metoprolol tartrate, 25 mg, oral, TID mupirocin, , Topical, BID Current Outpatient Medications Medication Instructions clopidogrel (PLAVIX) 75 mg, oral, Daily meloxicam (MOBIC) 7.5 mg, oral, Daily, Unsure if dose is correct
PHYSICAL EXAMINATION: GENERAL: Well developed, well nourished, in no acute distress. CHEST: Dressing CDI, chest tubes. NEURO/PSYCH: Alert and oriented times three with approppriate behavior and responses. NECK: Supple, no JVD, no bruit. LUNGS: Diminished. HEART: Rate and rhythm regular with no evident murmur, no gallop appreciated. EXTREMITIES: Warm with good color, no clubbing or cyanosis. There is no edema noted. PERIPHERAL VASCULAR: Pulses present and equally palpable; 2+ throughout. LAB DATA: CBC: Results from last 7 days Lab Units 07/30/23 0537 07/29/23 0405 07/28/23 0410 07/27/23 0340 WBC AUTO x10*3/uL 8.1 9.7 8.7 8.3 RBC AUTO x10*6/uL 3.22* 3.04* 2.97* 3.05* HEMOGLOBIN g/dL 9.7* 9.1* 8.9* 9.4* HEMATOCRIT % 29.4* 27.6* 27.2* 28.6* MCV fL 91 91 92 94 MCH pg 30.1 29.9 30.0 30.8 MCHC g/dL 33.0 33.0 32.7 32.9 RDW % 13.5 13.6 13.6 13.9 PLATELETS AUTO x10*3/uL 236 199 125* 86* MPV fL -- -- -- 11.6* CMP: Results from last 7 days Lab Units 07/30/23 0537 07/29/23 0405 07/28/23 0410 07/25/23 1455 07/25/23 0522 SODIUM mmol/L 137 137 135* < > 137 POTASSIUM mmol/L 4.2 4.1 3.8 < > 4.1 CHLORIDE mmol/L 105 104 103 < > 105 CO2 mmol/L 24 25 25 < > 23 BUN mg/dL 22 22 20 < > 22 CREATININE mg/dL 1.06 1.14 1.14 < > 1.16 GLUCOSE mg/dL 93 101* 112* < > 95 PROTEIN TOTAL g/dL -- -- -- -- 7.0 CALCIUM mg/dL 8.4* 8.2* 8.2* < > 9.1 BILIRUBIN TOTAL mg/dL -- -- -- -- 0.6 ALK PHOS U/L -- -- -- -- 70 AST U/L -- -- -- -- 54* ALT U/L -- -- -- -- 73* < > = values in this interval not displayed. BMP: Results from last 7 days Lab Units 07/30/2353607/29/23 04007/28/23 0410 SODIUM mmol/L 137 137 135* POTASSIUM mmol/L 4.2 4.1 3.8 CHLORIDE mmol/L 105 104 103 CO2 mmol/L 24 25 25 BUN mg/dL 22 22 20 CREATININE mg/dL 1.06 1.14 1.14 CALCIUM mg/dL 8.4* 8.2* 8.2* GLUCOSE mg/dL 93 101* 112* Magnesium: Results from last 7 days Lab Units 07/30/2353607/29/23 0405 07/28/23 0410 MAGNESIUM mg/dL 2.43* 2.03 2.23 DIAGNOSTIC TESTING: ECG 12 Lead Result Date: 07/20/2023 Normal sinus rhythm Possible Inferior infarct (cited on or before 19-JUL-2023) Abnormal ECG When compared with ECG of 19-JUL-2023 07:06, No significant change was found Transthoracic Echo (TTE) Complete Result Date: 07/19/2023 [place] [id number] TRANSTHORACIC ECHOCARDIOGRAM REPORT Patient Name: ROBERT SMILEY Reading Physician: [id number] Dev Ding MD, [facility] CONCLUSIONS: 1. Left ventricular systolic function is normal with a 55-60% estimated ejection fraction. 2. Spectral Doppler shows an impaired relaxation pattern of left ventricular diastolic filling. 3. Normal right ventricular chamber size and function. 4. Trivial tricuspid regurgitation. 5. No previous available for comparison. RADIOLOGY: XR chest 1 view Final Result NO ACUTE DISEASE IN THE CHEST MACRO: None Signed by: Isaiah Cross 07/29/2023 7:58 AM Dictation workstation: [id number] XR chest 1 view Final Result The right jugular central venous catheter is been removed. Bibasilar atelectatic changes similar to prior exam. MACRO: None Signed by: Hiren Vizcarra 07/28/2023 7:46 AM Dictation workstation: [id number] XR chest 1 view Final Result 1. No significant interval change. MACRO: None. Signed by: Hector Smith 07/27/2023 8:05 AM Dictation workstation: [id number] XR chest 1 view Final Result No pneumothorax MACRO: None Signed by: Isaiah Cross 07/26/2023 3:01 PM Dictation workstation: [id number] XR chest 1 view Final Result 1. Low inspiratory volume. Bibasilar infiltrates and/or atelectasis, left greater than right, similar to prior. MACRO: None. Signed by: Hector Smith 07/26/2023 8:21 AM Dictation workstation: [id number] XR chest 1 view Final Result Postop changes. Question of basilar infiltrate or atelectasis. A nasogastric tube may be present. The course and location of the tip is uncertain. MACRO: none Signed by: Janet Pate 07/25/2023 4:09 PM Dictation workstation: [id number] XR chest 1 view Final Result 1. Interval [place] catheter placement tip of the proximal right pulmonary artery as discussed above. No pneumothorax. MACRO: None Signed by: Bjorn Sandoval 07/25/2023 10:38 AM Dictation workstation: [id number] Anesthesia Intraoperative Transesophageal Echocardiogram Final Result Carotid duplex bilateral Final Result Normal flow pattern without evidence of hemodynamically relevant stenosis or atheromatous plaques in the visualized portions of the carotid circulation as described above. MACRO: None Signed by: Hector Smith 07/19/2023 3:43 PM Dictation workstation: [id number] XR chest 2 views Final Result 1. Mild left basilar atelectasis. No focal consolidation. MACRO: None. Signed by: Hector Smith 07/19/2023 3:41 PM Dictation workstation: [id number] CT chest wo IV contrast Final Result 1. No thoracic aortic aneurysm. Ascending thoracic aorta measures 3.1 cm in diameter. 2. Irregular calcification at the aortic root level. No evidence of calcification in the ascending thoracic aorta. 3. Cholelithiasis. No pericholecystic inflammation. No biliary dilation. MACRO: None. Signed by: Hector Smith 07/19/2023 2:09 PM Dictation workstation: [id number] Transthoracic Echo (TTE) Complete Final Result XR chest 1 view (Results Pending) PROBLEM LIST Patient Active Problem List Diagnosis Acute myocardial infarction due to left coronary artery occlusion (CMS/HCC) Hyperlipidemia Coronary artery disease of [place] artery of [place] heart with stable angina pectoris (CMS/HCC) Asperger's syndrome Elevated troponin ASSESSMENT: CAD triple-vessel disease Hypertension Dyslipidemia PLAN: Patient seen and examined in conjunction with Troy Ferro APRN and agree with the evaluation as noted above. 62-year-old gentleman who was transferred from [facility] for possible angina. He has a history of CAD hypertension dyslipidemia and presented to the hospital with unstable angina with radiation to the left arm. Emergent cardiac catheterization showed severe triple-vessel disease as noted above with 95% LAD, left circumflex as well as RCA. Patient was transferred for CABG. He is currently chest pain-free. EKG shows sinus rhythm with inferolateral ST depression. Cardiac exam reveals regular first and second heart sound, no murmurs are heard. Chest is clear to auscultation. ASSESSMENT AND PLAN: 1. CAD: With severe triple-vessel disease, awaiting cardiac evaluation. In the meantime, we will get an echocardiogram to rule out any significant valvular abnormalities and we will hold his Plavix for impending surgery. Full recommendations to be based on CV surgical evaluation. 2.Hypertension: We will continue to optimize blood pressure control. 3. Dyslipidemia: Continue with her current high intensity lipid-lowering therapy. DUSTIN 07/20/23 Tele monitoring Continue the heparin drip Plan for CABG on Tuesday Daily EKGs Further recommendations per Dr Emmanuel Ferro [facility] Of note, this documentation is completed using the [employer] system (voice recognition software). There may be spelling and/or grammatical errors that were not corrected prior to final submission. Please do not hesitate to call with questions. Patient seen and examined in conjunction with Troy Ferro APRN and agree with the evaluation as noted above. Patient remains in status quo, continues to be chest pain-free. He is awaiting CABG tentatively scheduled for next week Tuesday pending washout of Plavix. Preop echo shows normal LV function with no gross valvular abnormalities as noted above. Will continue with her other current cardiac medications and plan for surgery as scheduled. AK 07/21/23 Tele monitoring Aspirin 81 mg daily Lipitor 40 mg daily Imdur 30 mg daily Lopressor 25 mg p.o. twice daily Continue the heparin drip Plan for CABG on Tuesday Further recommendations per Dr Benitez Patient seen and examined in conjunction with Troy Ferro APRN and agree with the evaluation as noted above. Patient continues to do well with no recurrent chest pain. Awaiting surgery as scheduled. Continues to maintain sinus rhythm with no significant arrhythmias on the monitor. Will continue current cardiac medications and follow the patient postoperatively. AK 07/22/23 Tele monitoring Continue the heparin drip for now Plan for CABG on Tuesday Further recommendations per Dr Benitez 07/23/23: Patient continues to do well and remains in status quo with no chest pain or shortness of breath with ambulation. Awaiting CABG on Tuesday as scheduled. We will continue with current medications and follow the patient postoperatively. AKA 07/24/23 Patient continues to do well with no recurrent chest pain or significant shortness of breath. He is awaiting CABG scheduled for tomorrow we will continue with current medications and follow the patient postoperatively. AKA 07/26/23 Alert and oriented x 3. Up in chair. Very hard of hearing but conversing appropriately. Denies any significant chest pain or shortness of breath. Still on small amount of norepinephrine which is weaning off. Receiving albumin this morning. Plan to remove chest tubes today along with PA catheter Gentle hydration, monitor strict I's and O's and daily weights Initiate beta-roman when BP allows Will continue to follow along 07/27/23 Alert and oriented x 3. Up in chair. Very hard of hearing but conversing appropriately. Denies any significant chest pain or shortness of breath. Currently on 2 L nasal cannula with good oxygen saturation of 99% Chest tubes removed yesterday Would benefit from central line and Mac removal today Low-dose beta-roman added by cardiac surgery and ICU service Labile BP. Seems euvolemic and no gross fluid overload. Would probably hold off on diuresis but will defer to ICU cardiac surgery team Continue amiodarone infusion for now. Remains in normal sinus rhythm. Will continue to follow along Thom Melgar [facility] Adult Gerontology Acute Care Nurse Practitioner [facility] [phone] 07/28/23 Alert and oriented x 3. Up in chair. Very hard of hearing but conversing appropriately. Denies any significant chest pain or shortness of breath. Currently on room air with good oxygen saturation Monitor electrolytes, keep potassium greater than 4 and using greater than 2 Low-dose beta-roman added by cardiac surgery and ICU service BP better, continue to monitor Converted to normal sinus rhythm however converted back to A-fib with RVR earlier this morning. Patient received bolus of amiodarone and plan to continue drip. Plan will be switched to oral when able. Will continue to follow along Patient had recurrent episode of A-fib with RVR requiring IV amiodarone bolus and is currently on amiodarone gtt.. Will continue with the drip for now and overlap with p.o. amiodarone 200 mg twice a day. In view of recurrent A-fib, patient will need initiation of oral anticoagulation and we will check with CV surgery 1 this can be started. He can potentially be transferred to telemetry floor once he is off of IV amiodarone. AKA 07/29/23 Alert and oriented x 3. Up in chair. Very hard of hearing but conversing appropriately. Denies any significant chest pain or shortness of breath. Currently on room air with good oxygen saturation Monitor electrolytes, keep potassium greater than 4 and using greater than 2 Continue beta-roman and amiodarone. Had bowel movement BP better, continue to monitor Remains in normal sinus rhythm. [id number] score of 2, would recommend long-term anticoagulation with Eliquis. Defer to cardiac surgery team. Will continue to follow along Thom Melgar [facility] Adult Gerontology Acute Care Nurse Practitioner [facility] [phone] 07/29/23 Patient had brief episode of recurrent paroxysmal atrial fibrillation but is now in sinus rhythm, off amiodarone gtt.. He has been ambulating with no significant shortness of breath. There are no significant ventricular arrhythmias overnight. At this time, patient can be transferred to the telemetry floor and we will continue with p.o. amiodarone and Lopressor. Will start Eliquis for long-term anticoagulation. AKA 07/30/23: Resting comfortably in the chair. He denies chest pain or shortness of breath. He is alert and oriented x 3. He had recurrent atrial fibrillation yesterday requiring an additional IV amiodarone bolus. Metoprolol dosing frequency was increased to 3 times daily. His vital signs are currently stable. Approximate 500 cc negative fluid balance yesterday. Current weight is 237 pounds. Patient states a good weight for him at home is about 230 to 232 pounds. His cardiac rhythm is regular. Few bilateral basilar rales. He is receiving IV furosemide. He currently is on metoprolol 25 mg 3 times daily. Increase activity. Monitor rhythm overnight. Possible discharge tomorrow. \ Robert Smiley is a 62 y.o. male on day 11 of admission presenting with Acute myocardial infarction due to left coronary artery occlusion (CMS/HCC). Subjective Mr. Smiley is doing very well. Yesterday afternoon, pt had recurrent afib rvr. 5mg IVP Lopressor given with little response. Repeat Amiodarone bolus given with conversion back to sinus rhythm. Recurrent afib discussed with Cardiology and Metoprolol increased to TID. Pt is currently maintaining sinus rhythm with no recurrent AFIB on telemetry review. He is normotensive. Maintaining adequate SpO2 on RA. Pain well controlled. Tolerating diet without nausea. Having frequent loose bowel movements and bowel regimen discontinued. Noted to have persistent bibasilar crackles and b/l peripheral edema; continue diuresis. There were no acute overnight events. Potential discharge to home tomorrow if rhythm and rates controlled. Home health consult placed. Objective Physical Exam Vitals and nursing note reviewed. Constitutional: Appearance: Normal appearance. He is obese. HENT: Head: Normocephalic and atraumatic. Nose: Nose normal. Mouth/Throat: Mouth: Mucous membranes are moist. Pharynx: Oropharynx is clear. Eyes: Extraocular Movements: Extraocular movements intact. Pupils: Pupils are equal, round, and reactive to light. Cardiovascular: Rate and Rhythm: Normal rate and regular rhythm. Pulses: Normal pulses. Heart sounds: Normal heart sounds. Pulmonary: Effort: Pulmonary effort is normal. Comments: Excellent inspiratory volume. Slightly diminished at bases with bibasilar crackles Sternotomy is well approximated without erythema or drainage. Sternum stable. Abdominal: Comments: Protuberant but soft. Normoactive bowel sounds. Frequent loose bowel movements. Musculoskeletal: General: Normal range of motion. Cervical back: Normal range of motion and neck supple. Right lower leg: Edema present. Left lower leg: Edema present. Skin: General: Skin is warm and dry. Neurological: General: No focal deficit present. Mental Status: He is alert and oriented to person, place, and time. Psychiatric: Mood and Affect: Mood normal. Behavior: Behavior normal. Last Recorded Vitals Blood pressure 99/58, pulse 79, temperature 36 C (96.8 F), resp. rate 18, height 1.727 m (5' 8 ), weight 108 kg (237 lb 7 oz), SpO2 97 %. Intake/Output last 3 Shifts: I/O last 3 completed shifts: In: 1741 (16.2 mL/kg) [P.O.:908; I.V.:333 (3.1 mL/kg); IV Piggyback:500] Out: 2950 (27.4 mL/kg) [Urine:2950 (0.8 mL/kg/hr)] Weight: 107.7 kg Relevant Results Scheduled medications amiodarone, 400 mg, oral, Daily apixaban, 5 mg, oral, q12h aspirin, 81 mg, oral, Daily atorvastatin, 40 mg, oral, Nightly colchicine, 0.6 mg, oral, q12h docusate sodium, 100 mg, oral, TID furosemide, 40 mg, intravenous, Daily iron polysaccharides, 150 mg, oral, Daily magnesium oxide, 400 mg, oral, Daily metoprolol tartrate, 25 mg, oral, TID mupirocin, , Topical, BID polyethylene glycol, 17 g, oral, Daily potassium chloride CR, 20 mEq, oral, Once Continuous medications PRN medications PRN medications: acetaminophen OR [DISCONTINUED] acetaminophen OR [DISCONTINUED] acetaminophen, alum-mag hydroxide-simeth, bisacodyl, calcium chloride, calcium chloride, dextrose OR glucagon, HYDROmorphone, ipratropium-albuteroL, magnesium sulfate, magnesium sulfate, melatonin, metoclopramide OR metoclopramide, naloxone, oxyCODONE, oxygen, potassium chloride CR, potassium chloride CR Results for orders placed or performed during the hospital encounter of 07/19/23 (from the past 24 hour(s)) POCT GLUCOSE Result Value Ref Range POCT Glucose 103 (H) 74 - 99 mg/dL POCT GLUCOSE Result Value Ref Range POCT Glucose 94 74 - 99 mg/dL ECG 12 lead Result Value Ref Range Ventricular Rate 78 BPM Atrial Rate 78 BPM OH Interval 144 ms QRS Duration 84 ms QT Interval 386 ms QTC Calculation(Bazett) 440 ms P [place] 13 degrees R [place] 15 degrees T [place] -11 degrees QRS Count 13 beats Q Onset 215 ms P Onset 143 ms P Offset 194 ms T Offset 408 ms QTC Fredericia 421 ms POCT GLUCOSE Result Value Ref Range POCT Glucose 108 (H) 74 - 99 mg/dL CBC Result Value Ref Range WBC 8.1 4.4 - 11.3 x10*3/uL nRBC 0.0 0.0 - 0.0 /100 WBCs RBC 3.22 (L) 4.50 - 5.90 x10*6/uL Hemoglobin 9.7 (L) 13.5 - 17.5 g/dL Hematocrit 29.4 (L) 41.0 - 52.0 % MCV 91 80 - 100 fL MCH 30.1 26.0 - 34.0 pg MCHC 33.0 32.0 - 36.0 g/dL RDW 13.5 11.5 - 14.5 % Platelets 236 150 - 450 x10*3/uL Magnesium Result Value Ref Range Magnesium 2.43 (H) 1.60 - 2.40 mg/dL Renal Function Panel Result Value Ref Range Glucose 93 74 - 99 mg/dL Sodium 137 136 - 145 mmol/L Potassium 4.2 3.5 - 5.3 mmol/L Chloride 105 98 - 107 mmol/L Bicarbonate 24 21 - 32 mmol/L Anion Gap 12 10 - 20 mmol/L Urea Nitrogen 22 6 - 23 mg/dL Creatinine 1.06 0.50 - 1.30 mg/dL eGFR 80 >60 mL/min/1.73m*2 Calcium 8.4 (L) 8.6 - 10.3 mg/dL Phosphorus 3.4 2.5 - 4.9 mg/dL Albumin 3.3 (L) 3.4 - 5.0 g/dL POCT GLUCOSE Result Value Ref Range POCT Glucose 79 74 - 99 mg/dL ECG 12 lead Result Value Ref Range Ventricular Rate 73 BPM Atrial Rate 73 BPM OH Interval 150 ms QRS Duration 88 ms QT Interval 418 ms QTC Calculation(Bazett) 460 ms P [place] 8 degrees R [place] 9 degrees T [place] -11 degrees QRS Count 12 beats Q Onset 215 ms P Onset 140 ms P Offset 191 ms T Offset 424 ms QTC Fredericia 446 ms POCT GLUCOSE Result Value Ref Range POCT Glucose 92 74 - 99 mg/dL ECG 12 lead Result Date: 07/30/2023 Normal sinus rhythm Inferior infarct (cited on or before 19-JUL-2023) Abnormal ECG When compared with ECG of 29-JUL-2023 19:34, (unconfirmed) No significant change was found ECG 12 lead Result Date: 07/29/2023 Normal sinus rhythm Inferior infarct (cited on or before 19-JUL-2023) Abnormal ECG When compared with ECG of 29-JUL-2023 07:12, (unconfirmed) Questionable change in initial forces of Inferior leads XR chest 1 view Result Date: 07/29/2023 Interpreted By: Isaiah Cross, STUDY: XR CHEST 1 VIEW; 07/29/2023 5:37 am INDICATION: Signs/Symptoms:Post op cardiac surgery. COMPARISON: Portable chest, 28 July 2023 ACCESSION NUMBER(S): [id number] ORDERING CLINICIAN: DELILAH QUINTERO TECHNIQUE: Single frontal view of the chest; Portable technique FINDINGS: Enlarged cardiac silhouette is unchanged No consolidative lung opacity No edema / failure No large pleural effusion or demonstrable pneumothorax NO ACUTE DISEASE IN THE CHEST MACRO: None Signed by: Isaiah Cross 07/29/2023 7:58 AM Dictation workstation: [id number] ECG 12 Lead Result Date: 07/29/2023 Normal sinus rhythm Cannot rule out Inferior infarct (cited on or before 19-JUL-2023) Abnormal ECG When compared with ECG of 28-JUL-2023 06:30, (unconfirmed) Premature supraventricular complexes are no longer Present Serial changes of Inferior infarct Present Assessment/Plan Principal Problem: Acute myocardial infarction due to left coronary artery occlusion (CMS/HCC) Active Problems: Hyperlipidemia 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 Presented to OSH c/o midsternal CP that woke him from sleep. Ruled in as NSTEMI. Underwent coronary angiogram revealing diffuse TVD. Pt transferred to [facility] for consideration of surgical revascularization. July 24 pt underwent CABGx4 wit ESTES-LAD, SVG-PDA-OM, SVG-Diag; Endoscopic vein harvest; intraoperative MARCUS. -Discussed with Dr. Paola Rosado -ASA and Statin daily. -No Plavix despite NSTEMI/ACS due to anticoagulating for AFIB -Metoprolol 25mg TID -Lasix 40mg IVP x1 -Keep K>4 and Mag>2; PRN replacement as ordered -Tylenol and PRN Oxycodone or Ultram as ordered for pain -Bowel regimen discontinued due to frequent loose stools -Continued cardiac diet -Pulmonary hygiene; encourage IS -Increase activity as tolerated. OOB for all meals and ambulate TID. Therapy following. - for DC planning; anticipate home with [facility] tomorrow if rhythm and rate controlled -CBC, BMP, Mag, EKG, and CXR in AM Postoperative atrial fibrillation POD #2: developed atrial fibrillation with RVR, initiated on IV amiodarone POD #3: Initially converted to sinus rhythm last evening, with recurrence of A-fib with RVR this morning, rates 130s, hemodynamically stable POD#4: Converted back to sinus rhythm yesterday afternoon. Currently sinus but noted to have intermittent brief runs of rate controlled AFIB on telemetry review. POD#5: Yesterday afternoon had recurrent AFIB RVR necessitating repeat Amiodarone bolus as rates did not respond to IVP Lopressor. Subsequently converted back to sinus following Amio bolus and downgraded to telemetry. Discussed with Cardiology and Metoprolol increased to TID. -Amiodarone 400mg daily -Metoprolol 25mg TID -Keep K>4 and Mag>2; PRN replacement as ordered -Follow ECG for QTc monitoring HTN; HLD Lipid Panel: Chol 206, HDL 55.7, LDL 121, TRI 148. -Statin daily -Metoprolol 25mg TID -appreciate assistance of Cardiology colleagues Anemia; thrombocytopenia Acute post operative anemia. Acquired thrombocytopenia 2/2 consumption and hemodilution. POD #2: Hemoglobin 9.4, platelets 86,000, appear to be hemodilutional as significantly volume overloaded with LOS fluid balance of 11 L. Low suspicion for HIT POD #3: Hemoglobin 8.9, platelets 125,000, no signs of active bleeding POD#4 Hgb 9.1, Platelets 199k POD#5: hgb 9.7; Platelets 236k -Diuresis as above -follow CBC I spent 35 minutes in the professional and overall care of this patient. CHRISTY Garcia Patient preference is [facility] and [facility] pending PT>OT recommendations. Patient [place] in [facility]. [facility]. Patient was given [facility] option list for his insurance and area. He is going to provide choices after speaking with . Occupational Therapy OT Treatment Patient Name: Robert Smiley Today's Date: 07/29/2023 Time Calculation Start Time: 906 Stop Time: 930 Time Calculation (min): 24 min Assessment: End of Session Communication: Bedside nurse End of Session Patient Position: Up in chair, Alarm off, not on at start of session Plan: Treatment Interventions: ADL retraining, Functional transfer training, Endurance training, Patient/family training OT Frequency: 2 times per week Treatment Interventions: ADL retraining, Functional transfer training, Endurance training, Patient/family training Subjective Previous Visit Info: OT Last Visit OT Received On: 07/29/23 General: General Reason for Referral: CABG x4 Prior to Session Communication: Bedside nurse Patient Position Received: Up in chair, Alarm off, not on at start of session Precautions: Hearing/Visual Limitations: [place], bilateral hearing aids Medical Precautions: Fall precautions Post-Surgical Precautions: Move in the Tube Pain: Pain Assessment Pain Score: 0 - No pain Objective Cognition: Cognition Overall Cognitive Status: Impaired Orientation Level: Oriented X4 Following Commands: Follows multistep commands with increased time (~75%) Insight: Mild Impulsive: Mildly Activities of Daily Living: Grooming Grooming Level of Assistance: (patient washed hands at sink with SBA. oral care seated and in stance, with SBA) Grooming Where Assessed: Standing sinkside, Sitting sinkside LE Dressing LE Dressing: Yes Adult Briefs Level of Assistance: (donned underwear with comp tech and mod a. pants mgmt while in stance with min a.) LE Dressing Where Assessed: Recliner Functional Standing Tolerance: Functional Standing Tolerance Comments: patient stood for a total of 6 mins this date wiht fair/fair+ balance with 2-0 ue support as needed during functional ambulation/transfers and ADL Tasks. patient demo's fair/fair- endurance Bed Mobility/Transfers: Transfer 1 Technique 1: Sit to stand Transfer Device 1: Walker Transfer Level of Assistance 1: Contact guard Transfers 2 Transfer Device 2: Walker Transfer Level of Assistance 2: Contact guard Trials/Comments 2: functional ambulation Toilet Transfers Toilet Transfer Type: To and from Toilet Transfer to: Extra wide bedside commode Toilet Transfer Technique: Ambulating Toilet Transfers: Contact guard Sitting Balance: Dynamic Sitting Balance Dynamic Sitting-Balance: (fair+) Standing Balance: Dynamic Standing Balance Dynamic Standing-Balance: (fair/fair+) Therapy/Activity: Therapeutic Activity Therapeutic Activity Performed: Yes Therapeutic Activity 1: patient tolerated a total of 15 mins of functional activity with fair/fair- endurance with seated rest breaks throughout and performing tasks seated due to fatigue Outcome Measures:[facility] Daily Activity Putting on and taking off regular lower body clothing: A lot Bathing (including washing, rinsing, drying): A lot Putting on and taking off regular upper body clothing: A little Toileting, which includes using toilet, bedpan or urinal: A lot Taking care of personal grooming such as brushing teeth: A lot Eating Meals: None Daily Activity - Total Score: 15 Education Documentation Precautions, taught by DYAN Banks at 07/29/2023 1:30 PM. Learner: Patient Readiness: Acceptance Method: Explanation Response: Needs Reinforcement OP EDUCATION: Education Individual(s) Educated: Patient Education Provided: Diagnosis & Precautions, Symptom management, Ergonomics and postural realignment, Joint protection and energy conservation, Fall precautons, Risk and benefits of OT discussed with patient or other, POC discussed and agreed upon Diagnosis and Precautions: MITT Equipment: (AE, EC tech, home DME) Patient/Caregiver Demonstrated Understanding: yes Plan of Care Discussed and Agreed Upon: yes Patient Response to Education: Patient/Caregiver Verbalized Understanding of Information Goals: Encounter Problems Encounter Problems (Active) OT Goals Patient will complete functional mobility at a mod I level. (Progressing) Start: 07/26/23 Expected End: 08/09/23 Patient will complete functional transfers at a mod I level. (Progressing) Start: 07/26/23 Expected End: 08/09/23 Patient will complete toileting at a mod I level. (Progressing) Start: 07/26/23 Expected End: 08/09/23 Patient will complete lower body dressing at a mod I level. (Progressing) Start: 07/26/23 Expected End: 08/09/23 Patient will demonstrate fair + dynamic standing balance during functional tasks. (Progressing) Start: 07/26/23 Expected End: 08/09/23 Patient will tolerate standing greater than 4 minutes during functional tasks. (Progressing) Start: 07/26/23 Expected End: 08/09/23 Robert Smiley is a 62 y.o. male on day 10 of admission presenting with Acute myocardial infarction due to left coronary artery occlusion ([facility]). Subjective Pt is doing well. Remains afebrile and HDS. Converted back to sinus rhythm yesterday afternoon. On telemetry review is noted to have continued brief intermittent runs of afib with controlled rates. He is maintaining adequate SPO2 on RA. He is tolerating diet without nausea and moved bowels this morning. He reports pain to be well controlled. On exam appears near euvolemic but has some lower extremity edema; will continue gentle post op diuresis with Lasix 20mg daily. Pt is ambulating around unit and tolerating well. Will downgrade to telemetry today. Anticipate discharge in 24-48H. Objective Physical Exam Vitals and nursing note reviewed. Constitutional: Appearance: Normal appearance. He is obese. HENT: Head: Normocephalic and atraumatic. Right Ear: External ear normal. Left Ear: External ear normal. Nose: Nose normal. Mouth/Throat: Mouth: Mucous membranes are moist. Pharynx: Oropharynx is clear. Eyes: Extraocular Movements: Extraocular movements intact. Pupils: Pupils are equal, round, and reactive to light. Cardiovascular: Rate and Rhythm: Normal rate and regular rhythm. Pulses: Normal pulses. Heart sounds: Normal heart sounds. Comments: Sternotomy is well approximated without erythema or drainage. Sternum stable. Pulmonary: Effort: Pulmonary effort is normal. Comments: Achieving 1000-1500mL with IS Slightly diminished at bases but no adventitious sounds appreciated Abdominal: Comments: Protuberant but soft. BS normoactive. LBM 3/15. Musculoskeletal: General: Normal range of motion. Cervical back: Normal range of motion and neck supple. Skin: General: Skin is warm and dry. Neurological: General: No focal deficit present. Mental Status: He is alert and oriented to person, place, and time. Psychiatric: Mood and Affect: Mood normal. Behavior: Behavior normal. Last Recorded Vitals Blood pressure 101/51, pulse 84, temperature 36 C (96.8 F), temperature source Temporal, resp. rate 25, height 1.727 m (5' 8 ), weight 108 kg (238 lb 15.7 oz), SpO2 97 %. Intake/Output last 3 Shifts: I/O last 3 completed shifts: In: 1942.6 (17.9 mL/kg) [P.O.:1350; I.V.:592.6 (5.5 mL/kg)] Out: 4250 (39.2 mL/kg) [Urine:4250 (1.1 mL/kg/hr)] Weight: 108.4 kg Relevant Results Scheduled medications amiodarone, 400 mg, oral, Daily aspirin, 81 mg, oral, Daily atorvastatin, 40 mg, oral, Nightly colchicine, 0.6 mg, oral, q12h docusate sodium, 100 mg, oral, TID heparin (porcine), 5,000 Units, subcutaneous, q8h insulin lispro, 0-15 Units, subcutaneous, Before meals & nightly metoprolol tartrate, 25 mg, oral, BID mupirocin, , Topical, BID polyethylene glycol, 17 g, oral, Daily Continuous medications PRN medications PRN medications: acetaminophen OR [DISCONTINUED] acetaminophen OR [DISCONTINUED] acetaminophen, alum-mag hydroxide-simeth, bisacodyl, calcium chloride, calcium chloride, dextrose OR glucagon, HYDROmorphone, ipratropium-albuteroL, magnesium sulfate, magnesium sulfate, melatonin, metoclopramide OR metoclopramide, naloxone, oxyCODONE, oxygen, potassium chloride, potassium chloride CR, potassium chloride CR Results for orders placed or performed during the hospital encounter of 07/19/23 (from the past 24 hour(s)) POCT GLUCOSE Result Value Ref Range POCT Glucose 142 (H) 74 - 99 mg/dL POCT GLUCOSE Result Value Ref Range POCT Glucose 115 (H) 74 - 99 mg/dL CBC Result Value Ref Range WBC 9.7 4.4 - 11.3 x10*3/uL nRBC 0.0 0.0 - 0.0 /100 WBCs RBC 3.04 (L) 4.50 - 5.90 x10*6/uL Hemoglobin 9.1 (L) 13.5 - 17.5 g/dL Hematocrit 27.6 (L) 41.0 - 52.0 % MCV 91 80 - 100 fL MCH 29.9 26.0 - 34.0 pg MCHC 33.0 32.0 - 36.0 g/dL RDW 13.6 11.5 - 14.5 % Platelets 199 150 - 450 x10*3/uL Magnesium Result Value Ref Range Magnesium 2.03 1.60 - 2.40 mg/dL Renal Function Panel Result Value Ref Range Glucose 101 (H) 74 - 99 mg/dL Sodium 137 136 - 145 mmol/L Potassium 4.1 3.5 - 5.3 mmol/L Chloride 104 98 - 107 mmol/L Bicarbonate 25 21 - 32 mmol/L Anion Gap 12 10 - 20 mmol/L Urea Nitrogen 22 6 - 23 mg/dL Creatinine 1.14 0.50 - 1.30 mg/dL eGFR 73 >60 mL/min/1.73m*2 Calcium 8.2 (L) 8.6 - 10.3 mg/dL Phosphorus 2.8 2.5 - 4.9 mg/dL Albumin 3.3 (L) 3.4 - 5.0 g/dL POCT GLUCOSE Result Value Ref Range POCT Glucose 101 (H) 74 - 99 mg/dL ECG 12 Lead Result Value Ref Range Ventricular Rate 82 BPM Atrial Rate 82 BPM OH Interval 142 ms QRS Duration 82 ms QT Interval 374 ms QTC Calculation(Bazett) 436 ms P [place] 14 degrees R [place] 17 degrees T [place] 8 degrees QRS Count 14 beats Q Onset 217 ms P Onset 146 ms P Offset 198 ms T Offset 404 ms QTC Fredericia 415 ms POCT GLUCOSE Result Value Ref Range POCT Glucose 103 (H) 74 - 99 mg/dL XR chest 1 view Result Date: 07/29/2023 Interpreted By: Isaiah Cross, STUDY: XR CHEST 1 VIEW; 07/29/2023 5:37 am INDICATION: Signs/Symptoms:Post op cardiac surgery. COMPARISON: Portable chest, 28 July 2023 ACCESSION NUMBER(S): [id number] ORDERING CLINICIAN: DELILAH QUINTERO TECHNIQUE: Single frontal view of the chest; Portable technique FINDINGS: Enlarged cardiac silhouette is unchanged No consolidative lung opacity No edema / failure No large pleural effusion or demonstrable pneumothorax NO ACUTE DISEASE IN THE CHEST MACRO: None Signed by: Isaiah Cross 07/29/2023 7:58 AM Dictation workstation: [id number] ECG 12 Lead Result Date: 07/29/2023 Normal sinus rhythm Cannot rule out Inferior infarct (cited on or before 19-JUL-2023) Abnormal ECG When compared with ECG of 28-JUL-2023 06:30, (unconfirmed) Premature supraventricular complexes are no longer Present Serial changes of Inferior infarct Present XR chest 1 view Result Date: 07/28/2023 Interpreted By: Hiren Vizcarra, STUDY: XR CHEST 1 VIEW; ; 07/28/2023 6:04 am INDICATION: Signs/Symptoms:Post op cardiac surgery. COMPARISON: 07/27/2023 radiograph and 07/19/[address] ACCESSION NUMBER(S): [id number] ORDERING CLINICIAN: DELILAH QUINTERO TECHNIQUE: AP portable chest 5:48 a.m. FINDINGS: Cardiac silhouette remains enlarged. The lungs are hypoventilated with linear areas of basilar atelectasis, unchanged. The right jugular central venous catheter has been removed. No pneumothoraces are noted. The right jugular central venous catheter is been removed. Bibasilar atelectatic changes similar to prior exam. MACRO: None Signed by: Hiren Vizcarra 07/28/2023 7:46 AM Dictation workstation: [id number] ECG 12 Lead Result Date: 07/28/2023 Sinus rhythm with Premature supraventricular complexes Inferior infarct (cited on or before 19-JUL-2023) Abnormal ECG When compared with ECG of 27-JUL-2023 06:54, (unconfirmed) Premature supraventricular complexes are now Present Serial changes of Inferior infarct Present Assessment/Plan Principal Problem: Acute myocardial infarction due to left coronary artery occlusion (CMS/HCC) Active Problems: Hyperlipidemia 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 Presented to OSH c/o midsternal CP that woke him from sleep. Ruled in as NSTEMI. Underwent coronary angiogram revealing diffuse TVD. Pt transferred to [facility] for consideration of surgical revascularization. July 24 pt underwent CABGx4 wit ESTES-LAD, SVG-PDA-OM, SVG-Diag; Endoscopic vein harvest; intraoperative MARCUS. -Discussed with Dr. Peck and Dr. Paola Rosado -appreciate assistance of ICU colleagues -ASA and Statin daily. -No Plavix despite NSTEMI/ACS due to anticoagulating for AFIB -Metoprolol 25mg BID -Gentle diuresis; Lasix 20mg IVP x1 -Keep K>4 and Mag>2; PRN replacement as ordered -Tylenol and PRN Oxycodone or Ultram as ordered for pain -Bowel regimen of Miralax and Colace -Continued cardiac diet -Pulmonary hygiene; encourage IS -Increase activity as tolerated. OOB for all meals and ambulate TID. Therapy following. -SW for DC planning; anticipate home with [facility] in 24-48H -CBC, BMP, Mag, EKG, and CXR in AM Postoperative atrial fibrillation POD #2: developed atrial fibrillation with RVR, initiated on IV amiodarone POD #3: Initially converted to sinus rhythm last evening, with recurrence of A-fib with RVR this morning, rates 130s, hemodynamically stable POD#4: Converted back to sinus rhythm yesterday afternoon. Currently sinus but noted to have intermittent brief runs of rate controlled AFIB on telemetry review. -Amiodarone 400mg daily -Metoprolol 25mg BID -Keep K>4 and Mag>2; PRN replacement as ordered -Follow ECG for QTc monitoring HTN; HLD Lipid Panel: Chol 206, HDL 55.7, LDL 121, TRI 148. -Statin daily -Metoprolol 25mg twice daily -appreciate assistance of Cardiology colleagues Anemia; thrombocytopenia Acute post operative anemia. Acquired thrombocytopenia 2/2 consumption and hemodilution. POD #2: Hemoglobin 9.4, platelets 86,000, appear to be hemodilutional as significantly volume overloaded with LOS fluid balance of 11 L. Low suspicion for HIT POD #3: Hemoglobin 8.9, platelets 125,000, no signs of active bleeding POD#4 Hgb 9.1, Platelets 199k -Diuresis as above -follow CBC I spent 45 minutes in the professional and overall care of this patient. CHRISTY Garcia Images from the original note were not included. [facility] Progress Note Rounding ANTONIO/Fire Hose Curer: CHRISTY Hahn, Dr. Heraclio Benitez Primary Fire Hose Curer: Dr Horton Date: 07/29/2023 Patient: Robert Smiley Date of : 1960 Admit Date: 07/19/2023 SUBJECTIVE: 07/29/23 Alert and oriented x 3. Up in chair. In normal sinus rhythm this morning. Started on p.o. amiodarone. BP has been stable. Denies any increased chest pain or shortness of breath. Fluid balance negative. 07/28/23 Alert and oriented x 3. Unfortunately was in sinus rhythm but converted back to A-fib with RVR. BPs been stable. Denies any increased chest pain or shortness of breath. 07/27/23 Alert and oriented x 3. Postop day 2 from CABG. Up in chair. Minimal pain. Went to A-fib with RVR overnight. Started on amiodarone infusion. Converted this morning to sinus rhythm. Still seems euvolemic in regards to his weights. 07/26/23 Alert and oriented x 3. Postop day 1 from CABG. Remains on small amount of norepinephrine. Up in chair. Minimal pain. Seems to be on the dry side. 07/24/2023: Patient remained stable hemodynamically with sinus rhythm and no significant arrhythmias overnight. Is scheduled for CABG tomorrow 07/23/23: Patient remains in status quo, denies any chest pain or shortness of breath with ambulation. He is awaiting CABG on Tuesday and he continues to maintain sinus rhythm with occasional PVCs. 07/22/23 Patient is awake and alert and oriented x 3 he states that he is not having any chest pain I spoke to him at length he is well-informed of plan of care that we are going to do the CABG on Tuesday answered all of his questions Telemetry is normal sinus rhythm with a Ke lesional PVC 07/21/23 Patient is awake and alert and oriented x 3. States he had a little indigestion this morning spoke to him at length he denies any chest pain or shortness of breath Telemetry is normal sinus rhythm with occasional PVC EKG is normal sinus rhythm has ST depression in inferior 07/20/23 Patient is resting quietly spoke to him at length he discussed at length with CT surgery they are planning for CABG on Tuesday He denies chest pain or shortness of breath Telemetry is normal sinus rhythm with occasional PVCs EKG is normal sinus rhythm no acute change 07/19/23 Robert Smiley is a 62 y.o. male patient who is being at the request of Dr. Salgado for inpatient consultation of angina. He was admitted on 07/19/2023. Previous [facility] and [facility] records have been reviewed in detail. Patient with a history of CAD, hypertension dyslipidemia was transferred from [facility] for CABG evaluation. On Tuesday the patient developed chest pain that radiated down his left arm along with chest pain he went to [facility] they transferred him to [facility] for heart catheterization LAD 95% Circumflex 95% RCA 95 to 99% Patient states they put him on a heparin drip send and will be here for CABG consult. He states he does not have any chest pain, fever, chills, nausea, vomiting, PND, orthopnea, claudications at this present time. He states that he has had a couple stents in the past. /EKG is normal sinus rhythm has ST depression in inferior/ VITALS: Vitals: 07/29/23 0600 07/29/23 0700 07/29/23 0800 07/29/23 0900 BP: 93/56 93/56 99/57 101/51 BP Location: Left arm Left arm Left arm Patient Position: Sitting Sitting Sitting Pulse: 84 84 94 84 Resp: 21 (!) 40 23 25 Temp: 37 C (98.6 F) 36 C (96.8 F) TempSrc: Temporal Temporal SpO2: 93% 94% 95% 97% Weight: Height: Intake/Output Summary (Last 24 hours) at 07/29/2023 1023 Last data filed at 07/29/2023 0900 Gross per 24 hour Intake 1271.75 ml Output 3150 ml Net -1878.25 ml Wt Readings from Last 4 Encounters: 07/29/23 108 kg (238 lb 15.7 oz) 07/18/23 108 kg (239 lb) CURRENT HOSPITAL MEDICATIONS: amiodarone, 400 mg, oral, Daily aspirin, 81 mg, oral, Daily atorvastatin, 40 mg, oral, Nightly colchicine, 0.6 mg, oral, q12h docusate sodium, 100 mg, oral, TID furosemide, 20 mg, intravenous, Once heparin (porcine), 5,000 Units, subcutaneous, q8h insulin lispro, 0-15 Units, subcutaneous, Before meals & nightly metoprolol tartrate, 25 mg, oral, BID mupirocin, , Topical, BID polyethylene glycol, 17 g, oral, Daily Current Outpatient Medications Medication Instructions clopidogrel (PLAVIX) 75 mg, oral, Daily meloxicam (MOBIC) 7.5 mg, oral, Daily, Unsure if dose is correct
PHYSICAL EXAMINATION: GENERAL: Well developed, well nourished, in no acute distress. CHEST: Dressing CDI, chest tubes. NEURO/PSYCH: Alert and oriented times three with approppriate behavior and responses. NECK: Supple, no JVD, no bruit. LUNGS: Diminished. HEART: Rate and rhythm regular with no evident murmur, no gallop appreciated. EXTREMITIES: Warm with good color, no clubbing or cyanosis. There is no edema noted. PERIPHERAL VASCULAR: Pulses present and equally palpable; 2+ throughout. LAB DATA: CBC: Results from last 7 days Lab Units 07/29/2340407/28/2340907/27/23339 WBC AUTO x10*3/uL 9.7 8.7 8.3 RBC AUTO x10*6/uL 3.04* 2.97* 3.05* HEMOGLOBIN g/dL 9.1* 8.9* 9.4* HEMATOCRIT % 27.6* 27.2* 28.6* MCV fL 91 92 94 MCH pg 29.9 30.0 30.8 MCHC g/dL 33.0 32.7 32.9 RDW % 13.6 13.6 13.9 PLATELETS AUTO x10*3/uL 199 125* 86* MPV fL -- -- 11.6* CMP: Results from last 7 days Lab Units 07/29/2340407/28/2340907/27/2333907/25/23 1455 07/25/23 05 SODIUM mmol/L 137 135* 136 < > 137 POTASSIUM mmol/L 4.1 3.8 4.2 < > 4.1 CHLORIDE mmol/L 104 103 104 < > 105 CO2 mmol/L 25 25 25 < > 23 BUN mg/dL 22 20 12 < > 22 CREATININE mg/dL 1.14 1.14 0.98 < > 1.16 GLUCOSE mg/dL 101* 112* 116* < > 95 PROTEIN TOTAL g/dL -- -- -- -- 7.0 CALCIUM mg/dL 8.2* 8.2* 8.3* < > 9.1 BILIRUBIN TOTAL mg/dL -- -- -- -- 0.6 ALK PHOS U/L -- -- -- -- 70 AST U/L -- -- -- -- 54* ALT U/L -- -- -- -- 73* < > = values in this interval not displayed. BMP: Results from last 7 days Lab Units 07/29/2340407/28/2340907/27/23 034 SODIUM mmol/L 137 135* 136 POTASSIUM mmol/L 4.1 3.8 4.2 CHLORIDE mmol/L 104 103 104 CO2 mmol/L 25 25 25 BUN mg/dL 22 20 12 CREATININE mg/dL 1.14 1.14 0.98 CALCIUM mg/dL 8.2* 8.2* 8.3* GLUCOSE mg/dL 101* 112* 116* Magnesium: Results from last 7 days Lab Units 07/29/23 0405 07/28/23 0410 07/27/23 0340 MAGNESIUM mg/dL 2.03 2.23 2.24 DIAGNOSTIC TESTING: ECG 12 Lead Result Date: 07/20/2023 Normal sinus rhythm Possible Inferior infarct (cited on or before 19-JUL-2023) Abnormal ECG When compared with ECG of 19-JUL-2023 07:06, No significant change was found Carotid duplex bilateral Result Date: 07/19/2023 Interpreted By: Hector Smith, STUDY: [facility] CAROTID ARTERY DUPLEX BILATERAL; 07/19/2023 2:38 pm INDICATION: Signs/Symptoms:pre-op CABG; r/o carotid stenosis. COMPARISON: None. ACCESSION NUMBER(S): [id number] ORDERING CLINICIAN: MARYANNE YOU TECHNIQUE: Vascular ultrasound of the extracranial carotid system was performed bilaterally. Griffith scale, color Doppler and spectral Doppler waveform analysis was performed. FINDINGS: RIGHT: On the right There is no evidence of atheromatous plaques in the common carotid arteries, visualized portions of the internal carotid arteries, and the proximal external carotid arteries. Doppler studies demonstrate normal flow pattern without evidence of turbulent flow.. The peak systolic velocities are as follows: RIGHT SIDE PEAK SYSTOLIC VELOCITY TABLE: CCA 116 cm/sec. ICA 58 cm/sec. ECA 105 cm/sec. The ratio of the peak systolic velocity of the right ICA/CCA is 0.5. RIGHT VERTEBRAL ARTERY: The right vertebral artery demonstrates proximal normal anterograde flow LEFT: On the left There is no evidence of atheromatous plaques in the common carotid arteries, visualized portions of the internal carotid arteries, and the proximal external carotid arteries. Doppler studies demonstrate normal flow pattern without evidence of turbulent flow.. The peak systolic velocities are as follows: LEFT SIDE PEAK SYSTOLIC VELOCITY TABLE: CCA 99 cm/sec. ICA 54 cm/sec. ECA 98 cm/sec. The ratio of the peak systolic velocity of the left ICA/CCA is 0.6. LEFT VERTEBRAL ARTERY: The left vertebral artery demonstrates proximal normal anterograde flow Normal flow pattern without evidence of hemodynamically relevant stenosis or atheromatous plaques in the visualized portions of the carotid circulation as described above. MACRO: None Signed by: Hector Simth 07/19/2023 3:43 PM Dictation workstation: [id number] XR chest 2 views Result Date: 07/19/2023 Interpreted By: Hector Smith, STUDY: XR CHEST 2 VIEWS; 07/19/2023 2:08 pm INDICATION: Signs/Symptoms:pre-op CABG. COMPARISON: None. ACCESSION NUMBER(S): [id number] ORDERING CLINICIAN: MARYANNE YOU FINDINGS: CARDIOMEDIASTINAL SILHOUETTE: Cardiomediastinal silhouette is normal in size and configuration. LUNGS: Mild left basilar atelectasis is present. No focal consolidation. No pleural effusion or pneumothorax. ABDOMEN: No remarkable upper abdominal findings. BONES: Multilevel predominantly anterior endplate spurring/partially bridging osteophytes are present in the thoracic spine. 1. Mild left basilar atelectasis. No focal consolidation. MACRO: None. Signed by: Hector Smith 07/19/2023 3:41 PM Dictation workstation: [id number] Transthoracic Echo (TTE) Complete Result Date: 07/19/2023 [place] [address] TRANSTHORACIC ECHOCARDIOGRAM REPORT Patient Name: ROBERT DARENINDIGO Reading Physician: [id number] Dev Ding MD, [facility] Study Date: 07/19/2023 Ordering Provider: [id number] EDUARDO FERRO MRN/PID: [id number] Fellow: Nurse: Mendoza Dowd RN Date of /Age: 5 1960 / 62 years Complaint Investigations Officer: Chloé Lyman RDCS Gender: M Additional Staff: Height: 172.72 cm Admit Date: 07/18/2023 Weight: 105.69 kg Admission Status: Inpatient - Routine BSA / BMI: 2.18 m2 / 35.43 Department Location: [place] [address] Echo Lab Blood Pressure: 112 /58 mmHg Study Type: TRANSTHORACIC ECHO (TTE) COMPLETE Diagnosis/ICD: Encounter for preprocedural cardiovascular examination-Z01.810 Indication: PRE-OP CABG CPT Codes: Echo Complete w Full Doppler-72668 Patient History: Pertinent History: CAD, Hyperlipidemia and MA. Study Detail: The following Echo studies were performed: 2D, M-Mode, Doppler and color flow. Definity used as a contrast agent for endocardial border definition. Total contrast used for this procedure was 2 mL via IV push. The patient was awake. PHYSICIAN INTERPRETATION: Left Ventricle: Left ventricular systolic function is normal, with an estimated ejection fraction of 55-60%. There are no regional wall motion abnormalities. The left ventricular cavity size is normal. The left ventricular septal wall thickness is mildly increased. There is normal left ventricular posterior wall thickness. Spectral Doppler shows an impaired relaxation pattern of left ventricular diastolic filling. Left Atrium: The left atrium is normal in size. Left atrial volume index 18.5 mL/m2. Right Ventricle: The right ventricle is normal in size. There is normal right ventricular global systolic function. Normal right ventricular chamber size and function. Right Atrium: The right atrium is normal in size. Aortic Valve: The aortic valve was not well visualized. There is mild aortic valve cusp calcification. There is no evidence of aortic valve regurgitation. The peak instantaneous gradient of the aortic valve is 7.8 mmHg. The mean gradient of the aortic valve is 4.0 mmHg. Mitral Valve: The mitral valve is normal in structure. There is trace mitral valve regurgitation. Tricuspid Valve: The tricuspid valve is structurally normal. There is trace tricuspid regurgitation. The right ventricular systolic pressure is unable to be estimated. Trivial tricuspid regurgitation. Pulmonic Valve: The pulmonic valve is structurally normal. There is no indication of pulmonic valve regurgitation. Pericardium: There is a trivial pericardial effusion. Aorta: The aortic root is normal. Systemic Veins: The inferior vena cava appears to be of normal size. There is IVC inspiratory collapse greater than 50%. CONCLUSIONS: 1. Left ventricular systolic function is normal with a 55-60% estimated ejection fraction. 2. Spectral Doppler shows an impaired relaxation pattern of left ventricular diastolic filling. 3. Normal right ventricular chamber size and function. 4. Trivial tricuspid regurgitation. 5. No previous available for comparison. QUANTITATIVE DATA SUMMARY: 2D MEASUREMENTS: Normal Ranges: Ao Root d: 2.90 cm (2.0-3.7cm) LAs: 3.70 cm (2.7-4.0cm) IVSd: 1.20 cm (0.6-1.1cm) LVPWd: 0.93 cm (0.6-1.1cm) LVIDd: 3.80 cm (3.9-5.9cm) LVIDs: 2.60 cm LV Mass Index: 58.8 g/m2 LV % FS 31.6 % LA VOLUME: Normal Ranges: LA Vol A4C: 37.5 ml (22+/-6mL/m2) LA Vol A2C: 40.3 ml LA Vol BP: 41.3 ml LA Vol Index A4C: 17.2ml/m2 LA Vol Index A2C: 18.5 ml/m2 LA Vol Index BP: 19.0 ml/m2 LA Area A4C: 15.7 cm2 LA Area A2C: 15.3 cm2 LA [place] A4C: 5.6 cm LA [place] A2C: 4.9 cm LA Volume Index: 17.9 ml/m2 RA VOLUME BY A/L METHOD: Normal Ranges: RA Vol A4C: 33.3 ml (8.3-19.5ml) RA Vol Index A4C: 15.3 ml/m2 RA Area A4C: 13.7 cm2 RA [place] A4C: 4.8 cm AORTA MEASUREMENTS: Normal Ranges: Asc Ao, d: 3.10 cm (2.1-3.4cm) LV SYSTOLIC FUNCTION BY 2D PLANIMETRY (MOD): Normal Ranges: EF-A4C View: 58.9 % (>=55%) EF-A2C View: 54.9 % EF-Biplane: 58.6 % LV DIASTOLIC FUNCTION: Normal Ranges: MV Peak E: 0.85 m/s (0.7-1.2 m/s) MV Peak A: 0.80 m/s (0.42-0.7 m/s) E/A Ratio: 1.07 (1.0-2.2) MV e' 0.11 m/s (>8.0) MV lateral e' 0.11 m/s MV medial e' 0.09 m/s E/e' Ratio: 7.73 (<8.0) MITRAL VALVE: Normal Ranges: MV DT: 229 msec (150-240msec) AORTIC VALVE: Normal Ranges: AoV Vmax: 1.40 m/s (<=1.7m/s) AoV Peak P.8 mmHg (<20mmHg) AoV Mean P.0 mmHg (1.7-11.5mmHg) LVOT Max Gael: 1.20 m/s (<=1.1m/s) AoV VTI: 24.60 cm (18-25cm) LVOT VTI: 24.30 cm LVOT Diameter: 2.00 cm (1.8-2.4cm) AoV Area, VTI: 3.10 cm2 (2.5-5.5cm2) AoV Area,Vmax: 2.69 cm2 (2.5-4.5cm2) AoV Dimensionless Index: 0.99 RIGHT VENTRICLE: RV Basal 3.11 cm RV Mid 2.26 cm RV Major 7.5 cm TAPSE: 25.4 mm RV s' 0.14 m/s TRICUSPID VALVE/RVSP: Normal Ranges: IVC Diam: 1.65 cm PULMONIC VALVE: Normal Ranges: PV Accel Time: 77 msec (>120ms) PV Max Gael: 1.0 m/s (0.6-0.9m/s) PV Max P.7 mmHg [id number] Dev Ding MD, FACC Electronically signed on 07/19/2023 at 2:33:[address] chest wo IV contrast Result Date: 07/19/2023 Interpreted By: Hector Smith, STUDY: CT CHEST WO IV CONTRAST; 07/19/2023 1:48 pm INDICATION: Signs/Symptoms:pre-op CABG; please assess ascending aorta for atherosclerosis and size. COMPARISON: None. ACCESSION NUMBER(S): [id number] ORDERING CLINICIAN: MARYANNE YOU TECHNIQUE: Contiguous unenhanced axial images were obtained through the chest. Images were reformatted in axial, coronal, and sagittal planes. FINDINGS: LUNGS and AIRWAYS: Small bands of subsegmental atelectasis or scar are present in the left lower lobe anteriorly as well as the lingula. Mild dependent atelectasis present bilaterally. No focal consolidation. No pleural effusion or pneumothorax. MEDIASTINUM and LIOT, LOWER NECK AND AXILLA: No mediastinal or hilar lymphadenopathy is seen. No axillary lymphadenopathy. HEART and VESSELS: There is no thoracic aortic aneurysm. Ascending thoracic aorta is uniform in caliber measuring approximately 3.1 x 3.1 cm in transverse and AP diameters. Small irregular calcifications are seen at the aortic root level. No additional calcification is seen in the ascending thoracic aorta. Small atherosclerotic calcification is seen in the distal aortic arch. Descending thoracic aorta is uniform in caliber measuring 2.4 cm in diameter. Coronary artery calcifications and/or stents are present. No pericardial effusion. Heart is not significantly enlarged. UPPER ABDOMEN: Gallbladder is not abnormally distended and contains mixed attenuation gallstone in the dependent portion toward the base. No pericholecystic inflammation is seen. No biliary dilation. CHEST WALL and OSSEOUS STRUCTURES: There is mild S-shaped scoliosis of the thoracic spine. Multilevel disc space narrowing and predominantly anterior endplate spurring/partially bridging osteophytes are most prominent in the mid-lower thoracic spine. 1. No thoracic aortic aneurysm. Ascending thoracic aorta measures 3.1 cm in diameter. 2. Irregular calcification at the aortic root level. No evidence of calcification in the ascending thoracic aorta. 3. Cholelithiasis. No pericholecystic inflammation. No biliary dilation. MACRO: None. Signed by: Hector Smith 07/19/2023 2:09 PM Dictation workstation: [id number] ECG 12 lead Result Date: 07/19/2023 Normal sinus rhythm Possible Inferior infarct , age undetermined Abnormal ECG No previous ECGs available Confirmed by Courtney Shrestha ([id number]) on 07/19/2023 7:31:32 AM XR chest 1 view Final Result NO ACUTE DISEASE IN THE CHEST MACRO: None Signed by: Isaiah Cross 07/29/2023 7:58 AM Dictation workstation: [id number] XR chest 1 view Final Result The right jugular central venous catheter is been removed. Bibasilar atelectatic changes similar to prior exam. MACRO: None Signed by: Hiren Vizcarra 07/28/2023 7:46 AM Dictation workstation: [id number] XR chest 1 view Final Result 1. No significant interval change. MACRO: None. Signed by: Hector Smith 07/27/2023 8:05 AM Dictation workstation: [id number] XR chest 1 view Final Result No pneumothorax MACRO: None Signed by: Isaiah Cross 07/26/2023 3:01 PM Dictation workstation: [id number] XR chest 1 view Final Result 1. Low inspiratory volume. Bibasilar infiltrates and/or atelectasis, left greater than right, similar to prior. MACRO: None. Signed by: Hector Smith 07/26/2023 8:21 AM Dictation workstation: [id number] XR chest 1 view Final Result Postop changes. Question of basilar infiltrate or atelectasis. A nasogastric tube may be present. The course and location of the tip is uncertain. MACRO: none Signed by: Janet Pate 07/25/2023 4:09 PM Dictation workstation: [id number] XR chest 1 view Final Result 1. Interval [place]Monae catheter placement tip of the proximal right pulmonary artery as discussed above. No pneumothorax. MACRO: None Signed by: Bjorn Sandoval 07/25/2023 10:38 AM Dictation workstation: [id number] Anesthesia Intraoperative Transesophageal Echocardiogram Final Result Carotid duplex bilateral Final Result Normal flow pattern without evidence of hemodynamically relevant stenosis or atheromatous plaques in the visualized portions of the carotid circulation as described above. MACRO: None Signed by: Hector Smith 07/19/2023 3:43 PM Dictation workstation: [id number] XR chest 2 views Final Result 1. Mild left basilar atelectasis. No focal consolidation. MACRO: None. Signed by: Hector Smith 07/19/2023 3:41 PM Dictation workstation: [id number] CT chest wo IV contrast Final Result 1. No thoracic aortic aneurysm. Ascending thoracic aorta measures 3.1 cm in diameter. 2. Irregular calcification at the aortic root level. No evidence of calcification in the ascending thoracic aorta. 3. Cholelithiasis. No pericholecystic inflammation. No biliary dilation. MACRO: None. Signed by: Hector Smith 07/19/2023 2:09 PM Dictation workstation: [id number] Transthoracic Echo (TTE) Complete Final Result Transthoracic Echo (TTE) Complete Result Date: 07/19/2023 [place] [address] TRANSTHORACIC ECHOCARDIOGRAM REPORT Patient Name: ROBERT SMILEY Reading Physician: [id number] Dev Ding MD, [facility] Study Date: 07/19/2023 Ordering Provider: [id number] EDUARDO FERRO MRN/PID: [id number] Fellow: Nurse: Mendoza Dowd RN Date of /Age: 5 1960 / 62 years Complaint Investigations Officer: Chloé Lyman RDSAYRA Gender: M Additional Staff: Height: 172.72 cm Admit Date: 07/18/2023 Weight: 105.69 kg Admission Status: Inpatient - Routine BSA / BMI: 2.18 m2 / 35.43 Department Location: [facility] kg/m2 Echo Lab Blood Pressure: 112 /58 mmHg Study Type: TRANSTHORACIC ECHO (TTE) COMPLETE Diagnosis/ICD: Encounter for preprocedural cardiovascular examination-Z01.810 Indication: PRE-OP CABG CPT Codes: Echo Complete w Full Doppler-41210 Patient History: Pertinent History: CAD, Hyperlipidemia and MA. Study Detail: The following Echo studies were performed: 2D, M-Mode, Doppler and color flow. Definity used as a contrast agent for endocardial border definition. Total contrast used for this procedure was 2 mL via IV push. The patient was awake. PHYSICIAN INTERPRETATION: Left Ventricle: Left ventricular systolic function is normal, with an estimated ejection fraction of 55-60%. There are no regional wall motion abnormalities. The left ventricular cavity size is normal. The left ventricular septal wall thickness is mildly increased. There is normal left ventricular posterior wall thickness. Spectral Doppler shows an impaired relaxation pattern of left ventricular diastolic filling. Left Atrium: The left atrium is normal in size. Left atrial volume index 18.5 mL/m2. Right Ventricle: The right ventricle is normal in size. There is normal right ventricular global systolic function. Normal right ventricular chamber size and function. Right Atrium: The right atrium is normal in size. Aortic Valve: The aortic valve was not well visualized. There is mild aortic valve cusp calcification. There is no evidence of aortic valve regurgitation. The peak instantaneous gradient of the aortic valve is 7.8 mmHg. The mean gradient of the aortic valve is 4.0 mmHg. Mitral Valve: The mitral valve is normal in structure. There is trace mitral valve regurgitation. Tricuspid Valve: The tricuspid valve is structurally normal. There is trace tricuspid regurgitation. The right ventricular systolic pressure is unable to be estimated. Trivial tricuspid regurgitation. Pulmonic Valve: The pulmonic valve is structurally normal. There is no indication of pulmonic valve regurgitation. Pericardium: There is a trivial pericardial effusion. Aorta: The aortic root is normal. Systemic Veins: The inferior vena cava appears to be of normal size. There is IVC inspiratory collapse greater than 50%. CONCLUSIONS: 1. Left ventricular systolic function is normal with a 55-60% estimated ejection fraction. 2. Spectral Doppler shows an impaired relaxation pattern of left ventricular diastolic filling. 3. Normal right ventricular chamber size and function. 4. Trivial tricuspid regurgitation. 5. No previous available for comparison. QUANTITATIVE DATA SUMMARY: 2D MEASUREMENTS: Normal Ranges: Ao Root d: 2.90 cm (2.0-3.7cm) LAs: 3.70 cm (2.7-4.0cm) IVSd: 1.20 cm (0.6-1.1cm) LVPWd: 0.93 cm (0.6-1.1cm) LVIDd: 3.80 cm (3.9-5.9cm) LVIDs: 2.60 cm LV Mass Index: 58.8 g/m2 LV % FS 31.6 % LA VOLUME: Normal Ranges: LA Vol A4C: 37.5 ml (22+/-6mL/m2) LA Vol A2C: 40.3 ml LA Vol BP: 41.3 ml LA Vol Index A4C: 17.2ml/m2 LA Vol Index A2C: 18.5 ml/m2 LA Vol Index BP: 19.0 ml/m2 LA Area A4C: 15.7 cm2 LA Area A2C: 15.3 cm2 LA [place] A4C: 5.6 cm LA [place] A2C: 4.9 cm LA Volume Index: 17.9 ml/m2 RA VOLUME BY A/L METHOD: Normal Ranges: RA Vol A4C: 33.3 ml (8.3-19.5ml) RA Vol Index A4C: 15.3 ml/m2 RA Area A4C: 13.7 cm2 RA [place] A4C: 4.8 cm AORTA MEASUREMENTS: Normal Ranges: Asc Ao, d: 3.10 cm (2.1-3.4cm) LV SYSTOLIC FUNCTION BY 2D PLANIMETRY (MOD): Normal Ranges: EF-A4C View: 58.9 % (>=55%) EF-A2C View: 54.9 % EF-Biplane: 58.6 % LV DIASTOLIC FUNCTION: Normal Ranges: MV Peak E: 0.85 m/s (0.7-1.2 m/s) MV Peak A: 0.80 m/s (0.42-0.7 m/s) E/A Ratio: 1.07 (1.0-2.2) MV e' 0.11 m/s (>8.0) MV lateral e' 0.11 m/s MV medial e' 0.09 m/s E/e' Ratio: 7.73 (<8.0) MITRAL VALVE: Normal Ranges: MV DT: 229 msec (150-240msec) AORTIC VALVE: Normal Ranges: AoV Vmax: 1.40 m/s (<=1.7m/s) AoV Peak P.8 mmHg (<20mmHg) AoV Mean P.0 mmHg (1.7-11.5mmHg) LVOT Max Gael: 1.20 m/s (<=1.1m/s) AoV VTI: 24.60 cm (18-25cm) LVOT VTI: 24.30 cm LVOT Diameter: 2.00 cm (1.8-2.4cm) AoV Area, VTI: 3.10 cm2 (2.5-5.5cm2) AoV Area,Vmax: 2.69 cm2 (2.5-4.5cm2) AoV Dimensionless Index: 0.99 RIGHT VENTRICLE: RV Basal 3.11 cm RV Mid 2.26 cm RV Major 7.5 cm TAPSE: 25.4 mm RV s' 0.14 m/s TRICUSPID VALVE/RVSP: Normal Ranges: IVC Diam: 1.65 cm PULMONIC VALVE: Normal Ranges: PV Accel Time: 77 msec (>120ms) PV Max Gael: 1.0 m/s (0.6-0.9m/s) PV Max P.7 mmHg [id number] Dev Ding MD, [facility] Electronically signed on 07/19/2023 at 2:33:57 PM Final RADIOLOGY: XR chest 1 view Final Result NO ACUTE DISEASE IN THE CHEST MACRO: None Signed by: Isaiah Cross 07/29/2023 7:58 AM Dictation workstation: [id number] XR chest 1 view Final Result The right jugular central venous catheter is been removed. Bibasilar atelectatic changes similar to prior exam. MACRO: None Signed by: Hiren Vizcarra 07/28/2023 7:46 AM Dictation workstation: [id number] XR chest 1 view Final Result 1. No significant interval change. MACRO: None. Signed by: Hector Smith 07/27/2023 8:05 AM Dictation workstation: [id number] XR chest 1 view Final Result No pneumothorax MACRO: None Signed by: Isaiah Cross 07/26/2023 3:01 PM Dictation workstation: [id number] XR chest 1 view Final Result 1. Low inspiratory volume. Bibasilar infiltrates and/or atelectasis, left greater than right, similar to prior. MACRO: None. Signed by: Hector Smith 07/26/2023 8:21 AM Dictation workstation: [id number] XR chest 1 view Final Result Postop changes. Question of basilar infiltrate or atelectasis. A nasogastric tube may be present. The course and location of the tip is uncertain. MACRO: none Signed by: Janet Pate 07/25/2023 4:09 PM Dictation workstation: [id number] XR chest 1 view Final Result 1. Interval [place] catheter placement tip of the proximal right pulmonary artery as discussed above. No pneumothorax. MACRO: None Signed by: Bjorn Sandoval 07/25/2023 10:38 AM Dictation workstation: [id number] Anesthesia Intraoperative Transesophageal Echocardiogram Final Result Carotid duplex bilateral Final Result Normal flow pattern without evidence of hemodynamically relevant stenosis or atheromatous plaques in the visualized portions of the carotid circulation as described above. MACRO: None Signed by: Hector Smith 07/19/2023 3:43 PM Dictation workstation: [id number] XR chest 2 views Final Result 1. Mild left basilar atelectasis. No focal consolidation. MACRO: None. Signed by: Hector Smith 07/19/2023 3:41 PM Dictation workstation: [id number] CT chest wo IV contrast Final Result 1. No thoracic aortic aneurysm. Ascending thoracic aorta measures 3.1 cm in diameter. 2. Irregular calcification at the aortic root level. No evidence of calcification in the ascending thoracic aorta. 3. Cholelithiasis. No pericholecystic inflammation. No biliary dilation. MACRO: None. Signed by: Hector Smith 07/19/2023 2:09 PM Dictation workstation: [id number] Transthoracic Echo (TTE) Complete Final Result PROBLEM LIST Patient Active Problem List Diagnosis Acute myocardial infarction due to left coronary artery occlusion (CMS/HCC) Hyperlipidemia Coronary artery disease of [place] artery of [place] heart with stable angina pectoris (CMS/HCC) Asperger's syndrome Elevated troponin ASSESSMENT: CAD triple-vessel disease Hypertension Dyslipidemia PLAN: Patient seen and examined in conjunction with Troy Ferro APRN and agree with the evaluation as noted above. 62-year-old gentleman who was transferred from [facility] for possible angina. He has a history of CAD hypertension dyslipidemia and presented to the hospital with unstable angina with radiation to the left arm. Emergent cardiac catheterization showed severe triple-vessel disease as noted above with 95% LAD, left circumflex as well as RCA. Patient was transferred for CABG. He is currently chest pain-free. EKG shows sinus rhythm with inferolateral ST depression. Cardiac exam reveals regular first and second heart sound, no murmurs are heard. Chest is clear to auscultation. ASSESSMENT AND PLAN: 1. CAD: With severe triple-vessel disease, awaiting cardiac evaluation. In the meantime, we will get an echocardiogram to rule out any significant valvular abnormalities and we will hold his Plavix for impending surgery. Full recommendations to be based on CV surgical evaluation. 2.Hypertension: We will continue to optimize blood pressure control. 3. Dyslipidemia: Continue with her current high intensity lipid-lowering therapy. DUSTIN 07/20/23 Tele monitoring Continue the heparin drip Plan for CABG on Tuesday Daily EKGs Further recommendations per Dr Emmanuel Ferro CNP [facility] Of note, this documentation is completed using the [employer] Dictation system (voice recognition software). There may be spelling and/or grammatical errors that were not corrected prior to final submission. Please do not hesitate to call with questions. Patient seen and examined in conjunction with Troy Ferro APRN and agree with the evaluation as noted above. Patient remains in status quo, continues to be chest pain-free. He is awaiting CABG tentatively scheduled for next week Tuesday pending washout of Plavix. Preop echo shows normal LV function with no gross valvular abnormalities as noted above. Will continue with her other current cardiac medications and plan for surgery as scheduled. DUSTIN 07/21/23 Tele monitoring Aspirin 81 mg daily Lipitor 40 mg daily Imdur 30 mg daily Lopressor 25 mg p.o. twice daily Continue the heparin drip Plan for CABG on Tuesday Further recommendations per Dr Benitez Patient seen and examined in conjunction with Troy Ferro APRN and agree with the evaluation as noted above. Patient continues to do well with no recurrent chest pain. Awaiting surgery as scheduled. Continues to maintain sinus rhythm with no significant arrhythmias on the monitor. Will continue current cardiac medications and follow the patient postoperatively. AKA 07/22/23 Tele monitoring Continue the heparin drip for now Plan for CABG on Tuesday Further recommendations per Dr Benitez 07/23/23: Patient continues to do well and remains in status quo with no chest pain or shortness of breath with ambulation. Awaiting CABG on Tuesday as scheduled. We will continue with current medications and follow the patient postoperatively. AKA 07/24/23 Patient continues to do well with no recurrent chest pain or significant shortness of breath. He is awaiting CABG scheduled for tomorrow we will continue with current medications and follow the patient postoperatively. AKA 07/26/23 Alert and oriented x 3. Up in chair. Very hard of hearing but conversing appropriately. Denies any significant chest pain or shortness of breath. Still on small amount of norepinephrine which is weaning off. Receiving albumin this morning. Plan to remove chest tubes today along with PA catheter Gentle hydration, monitor strict I's and O's and daily weights Initiate beta-roman when BP allows Will continue to follow along 07/27/23 Alert and oriented x 3. Up in chair. Very hard of hearing but conversing appropriately. Denies any significant chest pain or shortness of breath. Currently on 2 L nasal cannula with good oxygen saturation of 99% Chest tubes removed yesterday Would benefit from central line and Mac removal today Low-dose beta-roman added by cardiac surgery and ICU service Labile BP. Seems euvolemic and no gross fluid overload. Would probably hold off on diuresis but will defer to ICU cardiac surgery team Continue amiodarone infusion for now. Remains in normal sinus rhythm. Will continue to follow along Thom Melgar [facility] Adult Gerontology Acute Care Nurse Practitioner [facility] [phone] Patient seen and examined in conjunction with Thom Melgar APRN/IRENA and agree with the evaluation as noted above. Patient had an episode of paroxysmal A-fib overnight, hospitalist he converted to sinus rhythm on IV amiodarone and is currently on maintenance gtt. We will continue for another 24 hours and switch to p.o. in a.m. He has been ambulating with no chest pain or significant shortness of breath. Consider possible transfer to telemetry floor in a.m. AKA 07/28/23 Alert and oriented x 3. Up in chair. Very hard of hearing but conversing appropriately. Denies any significant chest pain or shortness of breath. Currently on room air with good oxygen saturation Monitor electrolytes, keep potassium greater than 4 and using greater than 2 Low-dose beta-roman added by cardiac surgery and ICU service BP better, continue to monitor Converted to normal sinus rhythm however converted back to A-fib with RVR earlier this morning. Patient received bolus of amiodarone and plan to continue drip. Plan will be switched to oral when able. Will continue to follow along Patient seen and examined in conjunction with Thom Melgar APRN/IRENA and agree with the evaluation as noted above. Patient had recurrent episode of A-fib with RVR requiring IV amiodarone bolus and is currently on amiodarone gtt.. Will continue with the drip for now and overlap with p.o. amiodarone 200 mg twice a day. In view of recurrent A-fib, patient will need initiation of oral anticoagulation and we will check with CV surgery 1 this can be started. He can potentially be transferred to telemetry floor once he is off of IV amiodarone. AKA 07/29/23 Alert and oriented x 3. Up in chair. Very hard of hearing but conversing appropriately. Denies any significant chest pain or shortness of breath. Currently on room air with good oxygen saturation Monitor electrolytes, keep potassium greater than 4 and using greater than 2 Continue beta-roman and amiodarone. Had bowel movement BP better, continue to monitor Remains in normal sinus rhythm. [id number] score of 2, would recommend long-term anticoagulation with Eliquis. Defer to cardiac surgery team. Will continue to follow along Thom Melgar [facility] Adult Gerontology Acute Care Nurse Practitioner [facility] [phone] 07/29/23 Patient had brief episode of recurrent paroxysmal atrial fibrillation but is now in sinus rhythm, off amiodarone gtt.. He has been ambulating with no significant shortness of breath. There are no significant ventricular arrhythmias overnight. At this time, patient can be transferred to the telemetry floor and we will continue with p.o. amiodarone and Lopressor. Will start Eliquis for long-term anticoagulation. AKA \ [facility] Critical Care Medicine Progress Note Date: 07/29/2023 Patient: Robert Smiley Date of : 1960 Admit Date: 07/19/2023 ===== Original Chief Complaint: Chest pain Interval ICU Events: Pt yesterday evening s/p metoprolol and continued on IV amio gtt converted to sinus rhythm. Pt overnight without any acute issues. Pt is afebrile and hemodynamically stable and on room air. Pt UOP 2.9L in 24 hours and net negative 1.3L with stable Cr of 1.14. Pt currently states he is feeling well and without any acute complaints at this time. Pt has been ambulating and working with PT. Medical History: Past Medical History: Diagnosis Date Asperger's syndrome Coronary artery disease Gout Hyperlipidemia Myocardial infarct (CMS/HCC) Past Surgical History: Procedure Laterality Date APPENDECTOMY CORONARY STENT PLACEMENT Medications Prior to Admission Medication Sig Dispense Refill Last Dose clopidogrel (Plavix) 75 mg tablet Take 1 tablet (75 mg) by mouth once daily. meloxicam (Mobic) 7.5 mg tablet Take 1 tablet (7.5 mg) by mouth once daily. Unsure if dose is correct Patient has no known allergies. Social History Tobacco Use Smoking status: Never Smokeless tobacco: Never Vaping Use Vaping Use: Never used Substance Use Topics Drug use: Never No family history on file. Review of Systems: 14 point review of systems was completed and negative except for those specially mention in my HPI Physical Exam: Heart Rate: [74-132] Temp: [35.9 C (96.6 F)-37.5 C (99.5 F)] Resp: [12-38] BP: (83-134)/(49-102) Weight: [108 kg (238 lb 15.7 oz)] SpO2: [93 %-100 %] Physical Exam Constitutional: General: He is not in acute distress. Appearance: He is not ill-appearing. HENT: Ears: Comments: Patient with hearing aids in place Mouth/Throat: Mouth: Mucous membranes are moist. Eyes: General: No scleral icterus. Extraocular Movements: Extraocular movements intact. Pupils: Pupils are equal, round, and reactive to light. Neck: Comments: Right internal jugular Introducer in place and clean and dry and intact Cardiovascular: Rate and Rhythm: Normal rate and regular rhythm. Heart sounds: No murmur heard. Pulmonary: Effort: Pulmonary effort is normal. Breath sounds: Normal breath sounds. No wheezing or rales. Abdominal: General: Abdomen is flat. Bowel sounds are normal. Palpations: Abdomen is soft. Tenderness: There is no abdominal tenderness. Musculoskeletal: Right lower leg: No edema. Left lower leg: No edema. Skin: General: Skin is warm and dry. Findings: No rash. Neurological: General: No focal deficit present. Mental Status: He is oriented to person, place, and time. Mental status is at baseline. Cranial Nerves: No cranial nerve deficit. Motor: No weakness. Psychiatric: Mood and Affect: Mood normal. Behavior: Behavior normal. Objective: I have reviewed all medications, laboratory results, and imaging pertinent for today's encounter Assessment/Plan: Pt is a 62 y/o M w/ a PMHx of HTN, HLD, CAD s/p PCI (2017), and life time non-smoker, hearing loss who presented to OSH with chest pain and underwent LHC showing severe Triple vessel disease and was transferred to [facility] for CABG eval. Pt currently now POD#4 s/p CABG x 4 who is currently stable and course complicated by nbew Afib with RVR overnight and now sinus but otherwise doing well and hemodynamically stable at this time. Neuro/Psych/Pain Ctrl/Sedation: #Post-op pain - controlled - Continue with PRN opioids as needed for pain - Can discontinue lidocain patch - Delirium precautions and CAM-ICU - PT/OT and aggressive ambulation Respiratory/ENT: - No current active issues and s/p chest tube removals yesterday - Will wean supplemental Oxygen as tolerated to SpO2 goal of 92% - No need for further CXRs Cardiovascular: #CAD s/p PCI #CAD s/p CABG x 4 #Afib with RVR #HTN #HLD #Post-op Pericarditis - Will continue with ASA, Statin, BB - C/W colchicine (Day 3) and c/w tylenol as needed for pericarditis - Will continue with Lopressor and PO amio - Will likely start DOAC today Renal/Volume Status (Intra & Extravascular): - No current active issues - Monitor Cr daily and UOP Q4H - Further diuresis today GI: - Cardiac diet - C/W Miralax for Bowel Regimen - No indication for PPI Endocrine #Mild hyperglycemia - Finger sticks under control and will c/w Fss AC/at bedtime and ISS - Finger stick goals of 100-180 Infectious Disease: - No current active infectious issues at this time and will continue to monitor off Abx Heme/Onc: #Thrombocytopenia - resolved - C/W HSQ and will likely start DOAC today for afib - Monitor Hgb daily and transfuse for Hgb<8 - Transfuse for Plts<10k unless febrile Ethics/Code Status: - Full code - Will coordinate with for post-op car needs at home and family had expressed need for patient with more assistance Automation Driver: DVT Prophylaxis: HSQ and will likely place on AC today GI Prophylaxis: None Bowel Regimen: Yes Diet: Cardiac CVC: None Cheryl: None Mac: None Restraints: None Dispo: Likely transfer to [address] [place] [address] today Apolinar Forbes MD Late entry : 1630 Rounded with patient's nurse Bjorn and rec'd update. Pt developed MICHELLE B with RVR today . Plan is to remain in ICU overnight. Will require follow up for [facility] preference . No family visiting during rounding. Melissa Head RN Occupational Therapy Therapy Communication Note Patient Name: Robert Smiley Today's Date: 07/28/2023 Discipline: Occupational Therapy Missed Visit Reason: Missed Visit Reason: Patient placed on medical hold. Missed Time: [id number]:25 Comment: OT spoke with RN. OT treatment held as pt. Is in afib with RVR. Reattempt as appropriate. Robert Smiley is a 62 y.o. male on day 9 of admission presenting with Acute myocardial infarction due to left coronary artery occlusion (CMS/HCC). Subjective No acute overnight events. This morning is afebrile, initially converted to sinus rhythm but returned to A-fib with RVR early this morning, rates 130s. Currently normotensive. Amiodarone 150 mg bolus given, remains on IV infusion. Will confer with cardiology regarding p.o. loading. Tolerating low-dose metoprolol. Chest x-ray stable with mild bibasilar atelectasis. Maintaining adequate saturations on room air. Send spirometry volumes exceeding 1 L. Weight remains significantly elevated over baseline, with 10 L LOS fluid balance. 24-hour fluid balance after receiving 1 dose of IV Lasix -400 mL. Will increase diuresis, Lasix 20 mg IV twice daily. Postoperative pain is well-controlled. Tolerating diet, passing flatus has not moved bowels. Continues to work with PT/OT transferring easily from bed to chair and ambulating short distances as able with use of walker. Will need to remain in ICU overnight due to IV amiodarone, otherwise is stable to transfer. Objective Physical Exam Constitutional: General: He is not in acute distress. Appearance: He is obese. HENT: Head: Normocephalic. Nose: Nose normal. Mouth/Throat: Mouth: Mucous membranes are moist. Eyes: Pupils: Pupils are equal, round, and reactive to light. Cardiovascular: Rate and Rhythm: Tachycardia present. Rhythm irregular. Pulses: Normal pulses. Heart sounds: Friction rub present. Comments: epicardial wires insulated Pulmonary: Comments: Sternum stable Sternotomy well-approximated No drainage from chest tube sites Improving inspiratory effort, spirometry volumes exceeding 1000 mL Diminished breath sounds at bases otherwise clear to auscultation Abdominal: General: Bowel sounds are normal. There is no distension. Comments: LBM preoperatively Genitourinary: Comments: Voiding clear yellow Musculoskeletal: General: Normal range of motion. Cervical back: Normal range of motion. Comments: 1+ generalized edema Skin: General: Skin is warm and dry. Comments: Right EVH incisions well-approximated, mildly ecchymotic, no edema or drainage Neurological: General: No focal deficit present. Mental Status: He is alert and oriented to person, place, and time. Psychiatric: Mood and Affect: Mood normal. Last Recorded Vitals Blood pressure 85/73, pulse (!) 128, temperature 37 C (98.6 F), temperature source Temporal, resp. rate (!) 38, height 1.727 m (5' 8 ), weight 110 kg (242 lb 4.6 oz), SpO2 100 %. Intake/Output last 3 Shifts: I/O last 3 completed shifts: In: 3262.5 (29.7 mL/kg) [P.O.:870; I.V.:1392.5 (12.7 mL/kg); IV Piggyback:1000] Out: 2900 (26.4 mL/kg) [Urine:2900 (0.7 mL/kg/hr)] Weight: 109.9 kg Relevant Results Scheduled medications aspirin, 81 mg, oral, Daily atorvastatin, 40 mg, oral, Nightly colchicine, 0.6 mg, oral, q12h docusate sodium, 100 mg, oral, TID furosemide, 20 mg, intravenous, BID heparin (porcine), 5,000 Units, subcutaneous, q8h insulin lispro, 0-15 Units, subcutaneous, Before meals & nightly lidocaine, 1 patch, transdermal, q24h metoprolol tartrate, 12.5 mg, oral, BID mupirocin, , Topical, BID polyethylene glycol, 17 g, oral, Daily Continuous medications amiodarone, 0.5-1 mg/min, Last Rate: 0.5 mg/min (07/28/23 0904) PRN medications PRN medications: acetaminophen OR [DISCONTINUED] acetaminophen OR [DISCONTINUED] acetaminophen, alum-mag hydroxide-simeth, bisacodyl, calcium chloride, calcium chloride, dextrose OR glucagon, HYDROmorphone, ipratropium-albuteroL, magnesium sulfate, magnesium sulfate, melatonin, metoclopramide OR metoclopramide, naloxone, oxyCODONE, oxygen, potassium chloride, potassium chloride CR, potassium chloride CR XR chest 1 view Result Date: 07/28/2023 Interpreted By: Hiren Vizcarra, STUDY: XR CHEST 1 VIEW; ; 07/28/2023 6:04 am INDICATION: Signs/Symptoms:Post op cardiac surgery. COMPARISON: 07/27/2023 radiograph and 07/19/[address] ACCESSION NUMBER(S): [id number] ORDERING CLINICIAN: DELILAH QUINTERO TECHNIQUE: AP portable chest 5:48 a.m. FINDINGS: Cardiac silhouette remains enlarged. The lungs are hypoventilated with linear areas of basilar atelectasis, unchanged. The right jugular central venous catheter has been removed. No pneumothoraces are noted. The right jugular central venous catheter is been removed. Bibasilar atelectatic changes similar to prior exam. MACRO: None Signed by: Hiren Vizcarra 07/28/2023 7:46 AM Dictation workstation: [id number] ECG 12 Lead Result Date: 07/28/2023 Sinus rhythm with Premature supraventricular complexes Inferior infarct (cited on or before 19-JUL-2023) Abnormal ECG When compared with ECG of 27-JUL-2023 06:54, (unconfirmed) Premature supraventricular complexes are now Present Serial changes of Inferior infarct Present XR chest 1 view Result Date: 07/27/2023 Interpreted By: Hector Smith, STUDY: XR CHEST 1 VIEW; 07/27/2023 5:32 am INDICATION: Signs/Symptoms:Post op cardiac surgery. COMPARISON: 07/26/2023. ACCESSION NUMBER(S): [id number] ORDERING CLINICIAN: DELILAH QUINTERO FINDINGS: CARDIOMEDIASTINAL SILHOUETTE: Right jugular central line remains in place with tip at the SVC level. Cardiomegaly, aortic prominence with calcification and postoperative changes of the mediastinum are similar to prior. LUNGS: Inspiratory volume is low. Bibasilar irregular opacities, left more prominent than right, are similar to prior and may represent a combination of atelectasis and small infiltrates. Small pleural effusions not excluded. No appreciable pneumothorax. ABDOMEN: No remarkable upper abdominal findings. BONES: Bones are stable including endplate spurring of the spine and partially visualized degenerative changes of the shoulders. 1. No significant interval change. MACRO: None. Signed by: Hector Smith 07/27/2023 8:05 AM Dictation workstation: [id number] ECG 12 Lead Result Date: 07/27/2023 Normal sinus rhythm Inferior infarct (cited on or before 19-JUL-2023) Anterior injury pattern ACUTE MA / STEMI Abnormal ECG When compared with ECG of 26-JUL-2023 23:45, (unconfirmed) Sinus rhythm has replaced Atrial fibrillation Vent. rate has decreased BY 57 BPM Serial changes of Inferior infarct Present Electrocardiogram, 12-lead PRN ACS symptoms Result Date: 07/27/2023 Atrial fibrillation with rapid ventricular response Inferior infarct (cited on or before 19-JUL-2023) Abnormal ECG When compared with ECG of 26-JUL-2023 06:43, (unconfirmed) Atrial fibrillation has replaced Sinus rhythm Vent. rate has increased BY 46 BPM Serial changes of Inferior infarct Present XR chest 1 view Result Date: 07/26/2023 Interpreted By: Isaiah Cross, STUDY: XR CHEST 1 VIEW; 07/26/2023 2:55 pm INDICATION: Signs/Symptoms:s/p chest tube removal. COMPARISON: Portable chest earlier same day 26 July 2023 at 0509 hours ACCESSION NUMBER(S): [id number] ORDERING CLINICIAN: MARYANNE YOU TECHNIQUE: Single frontal view of the chest; Portable technique FINDINGS: The only remaining device is the well-positioned right IJ introducer sheath, tip overlies lower SVC All other tubes/lines have been removed No pneumothorax or any other additional interval change otherwise No pneumothorax MACRO: None Signed by: Isaiah Cross 07/26/2023 3:01 PM Dictation workstation: [id number] Results for orders placed or performed during the hospital encounter of 07/19/23 (from the past 24 hour(s)) POCT GLUCOSE Result Value Ref Range POCT Glucose 138 (H) 74 - 99 mg/dL POCT GLUCOSE Result Value Ref Range POCT Glucose 125 (H) 74 - 99 mg/dL POCT GLUCOSE Result Value Ref Range POCT Glucose 155 (H) 74 - 99 mg/dL POCT GLUCOSE Result Value Ref Range POCT Glucose 114 (H) 74 - 99 mg/dL Calcium, Ionized Result Value Ref Range POCT Calcium, Ionized 1.13 1.1 - 1.33 mmol/L CBC Result Value Ref Range WBC 8.7 4.4 - 11.3 x10*3/uL nRBC 0.0 0.0 - 0.0 /100 WBCs RBC 2.97 (L) 4.50 - 5.90 x10*6/uL Hemoglobin 8.9 (L) 13.5 - 17.5 g/dL Hematocrit 27.2 (L) 41.0 - 52.0 % MCV 92 80 - 100 fL MCH 30.0 26.0 - 34.0 pg MCHC 32.7 32.0 - 36.0 g/dL RDW 13.6 11.5 - 14.5 % Platelets 125 (L) 150 - 450 x10*3/uL Magnesium Result Value Ref Range Magnesium 2.23 1.60 - 2.40 mg/dL Renal Function Panel Result Value Ref Range Glucose 112 (H) 74 - 99 mg/dL Sodium 135 (L) 136 - 145 mmol/L Potassium 3.8 3.5 - 5.3 mmol/L Chloride 103 98 - 107 mmol/L Bicarbonate 25 21 - 32 mmol/L Anion Gap 11 10 - 20 mmol/L Urea Nitrogen 20 6 - 23 mg/dL Creatinine 1.14 0.50 - 1.30 mg/dL eGFR 73 >60 mL/min/1.73m*2 Calcium 8.2 (L) 8.6 - 10.3 mg/dL Phosphorus 2.7 2.5 - 4.9 mg/dL Albumin 3.4 3.4 - 5.0 g/dL ECG 12 Lead Result Value Ref Range Ventricular Rate 81 BPM Atrial Rate 81 BPM OH Interval 144 ms QRS Duration 88 ms QT Interval 352 ms QTC Calculation(Bazett) 408 ms P [place] 14 degrees R [place] 7 degrees T [place] -30 degrees QRS Count 13 beats Q Onset 216 ms P Onset 144 ms P Offset 198 ms T Offset 392 ms QTC Fredericia 388 ms POCT GLUCOSE Result Value Ref Range POCT Glucose 110 (H) 74 - 99 mg/dL Assessment/Plan Principal Problem: Acute myocardial infarction due to left coronary artery occlusion (CMS/HCC) Active Problems: Hyperlipidemia Coronary artery disease of [place] artery of [place] heart with stable angina pectoris (CMS/HCC) Asperger's syndrome Elevated troponin CAD; NSTEMI Hx of CAD s/p PCI x2 (2017) maintained on Plavix since (last dose 07/18). Presented to OSH c/o midsternal CP that woke him from sleep. Ruled in as NSTEMI. Underwent coronary angiogram revealing diffuse TVD. Pt transferred to [facility] for consideration of surgical revascularization. July 24 pt underwent CABGx4 wit ESTES-LAD, SVG-PDA-OM, SVG-Diag; Endoscopic vein harvest; intraoperative MARCUS. -Discussed with Dr. Peck -appreciate assistance of ICU colleagues -Increase diuresis with Lasix 20 mg IV BIDfurther adjustments based on clinical response -Repleat electrolytes to maintain potassium greater than 4.0, magnesium greater than 2.0 -ASA and Statin daily. Will need Plavix prior to discharge d/t NSTEMI/ACS -Metoprolol 12.5mg BID -Scheduled Tylenol, Lidoderm patch, PRN oxycodone, and as needed tramadol for pain -Bowel regimen of Miralax and Colace -Continued cardiac diet, Protonix for GI prophylaxis. -SCDs, RUBIA hose, and heparin 5000 units every 8 hours for DVT prophylaxis -Pulmonary hygiene; encourage IS; wean supplemental oxygen for SPO2>90% -Increase activity as tolerated. OOB for all meals and ambulate TID. Therapy consulted - for DC planning -CBC, BMP, Mag, iCa, EKG, and CXR in AM Postoperative atrial fibrillation POD #2: developed atrial fibrillation with RVR, initiated on IV amiodarone POD #3: Initially converted to sinus rhythm last evening, with recurrence of A-fib with RVR this morning, rates 130s, hemodynamically stable -Continue metoprolol 12.5 mg twice daily -Additional amiodarone 150 mg IV bolus given this morning, maintained on drip per cardiology recommendations, will discuss possibility of initiating p.o. loading today -If remains in A-fib overnight, okay from surgical standpoint to initiate OAC with Eliquis tomorrow -Maintain potassium greater than 4.0, magnesium greater than 2.0 -Follow ECG for QTc monitoring HTN; HLD Lipid Panel: Chol 206, HDL 55.7, LDL 121, TRI 148. -Statin daily -Metoprolol 12.5 mg twice daily -appreciate assistance of Cardiology colleagues Anemia; thrombocytopenia Acute post operative anemia. POD #2: Hemoglobin 9.4, platelets 86,000, appear to be hemodilutional as significantly volume overloaded with LOS fluid balance of 11 L -Low suspicion for HIT POD #3: Hemoglobin 8.9, platelets 125,000, no signs of active bleeding -Diuresis as above -follow CBC I spent 45 minutes in the professional and overall care of this patient. CHRISTY Evans Images from the original note were not included. [facility] Progress Note Rounding ANTONIO/Fire Hose Curer: CHRISTY Hahn, Dr. Heraclio Benitez Primary Fire Hose Curer: Dr Horton Date: 07/28/2023 Patient: Robert Smiley Date of : 1960 Admit Date: 07/19/2023 SUBJECTIVE: 07/28/23 Alert and oriented x 3. Unfortunately was in sinus rhythm but converted back to A-fib with RVR. BPs been stable. Denies any increased chest pain or shortness of breath. 07/27/23 Alert and oriented x 3. Postop day 2 from CABG. Up in chair. Minimal pain. Went to A-fib with RVR overnight. Started on amiodarone infusion. Converted this morning to sinus rhythm. Still seems euvolemic in regards to his weights. 07/26/23 Alert and oriented x 3. Postop day 1 from CABG. Remains on small amount of norepinephrine. Up in chair. Minimal pain. Seems to be on the dry side. 07/24/2023: Patient remained stable hemodynamically with sinus rhythm and no significant arrhythmias overnight. Is scheduled for CABG tomorrow 07/23/23: Patient remains in status quo, denies any chest pain or shortness of breath with ambulation. He is awaiting CABG on Tuesday and he continues to maintain sinus rhythm with occasional PVCs. 07/22/23 Patient is awake and alert and oriented x 3 he states that he is not having any chest pain I spoke to him at length he is well-informed of plan of care that we are going to do the CABG on Tuesday answered all of his questions Telemetry is normal sinus rhythm with a Ke lesional PVC 07/21/23 Patient is awake and alert and oriented x 3. States he had a little indigestion this morning spoke to him at length he denies any chest pain or shortness of breath Telemetry is normal sinus rhythm with occasional PVC EKG is normal sinus rhythm has ST depression in inferior 07/20/23 Patient is resting quietly spoke to him at length he discussed at length with CT surgery they are planning for CABG on Tuesday He denies chest pain or shortness of breath Telemetry is normal sinus rhythm with occasional PVCs EKG is normal sinus rhythm no acute change 07/19/23 Robert Smiley is a 62 y.o. male patient who is being at the request of Dr. Salgado for inpatient consultation of angina. He was admitted on 07/19/2023. Previous [facility] and [facility] records have been reviewed in detail. Patient with a history of CAD, hypertension dyslipidemia was transferred from [facility] for CABG evaluation. On Tuesday the patient developed chest pain that radiated down his left arm along with chest pain he went to [facility] they transferred him to [facility] for heart catheterization LAD 95% Circumflex 95% RCA 95 to 99% Patient states they put him on a heparin drip send and will be here for CABG consult. He states he does not have any chest pain, fever, chills, nausea, vomiting, PND, orthopnea, claudications at this present time. He states that he has had a couple stents in the past. /EKG is normal sinus rhythm has ST depression in inferior/ VITALS: Vitals: 07/28/23 0500 07/28/23 0536 07/28/23 0600 07/28/23 0700 BP: 101/62 103/59 100/58 BP Location: Left arm Left arm Left arm Patient Position: Lying Sitting Sitting Pulse: 78 80 80 Resp: 21 19 19 Temp: TempSrc: SpO2: 100% 97% 96% 98% Weight: 110 kg (242 lb 4.6 oz) Height: Intake/Output Summary (Last 24 hours) at 07/28/2023 0828 Last data filed at 07/28/2023 0536 Gross per 24 hour Intake 1561.8 ml Output 1890 ml Net -328.2 ml Wt Readings from Last 4 Encounters: 07/28/23 110 kg (242 lb 4.6 oz) 07/18/23 108 kg (239 lb) CURRENT HOSPITAL MEDICATIONS: aspirin, 81 mg, oral, Daily atorvastatin, 40 mg, oral, Nightly colchicine, 0.6 mg, oral, q12h docusate sodium, 100 mg, oral, TID [Held by provider] heparin (porcine), 5,000 Units, subcutaneous, q8h insulin lispro, 0-15 Units, subcutaneous, Before meals & nightly lidocaine, 1 patch, transdermal, q24h metoprolol tartrate, 12.5 mg, oral, BID mupirocin, , Topical, BID polyethylene glycol, 17 g, oral, Daily amiodarone, 0.5-1 mg/min, Last Rate: 0.5 mg/min (07/27/231816) Current Outpatient Medications Medication Instructions clopidogrel (PLAVIX) 75 mg, oral, Daily meloxicam (MOBIC) 7.5 mg, oral, Daily, Unsure if dose is correct
PHYSICAL EXAMINATION: GENERAL: Well developed, well nourished, in no acute distress. CHEST: Dressing CDI, chest tubes. NEURO/PSYCH: Alert and oriented times three with approppriate behavior and responses. NECK: Supple, no JVD, no bruit. LUNGS: Diminished. HEART: Rate and rhythm regular with no evident murmur, no gallop appreciated. EXTREMITIES: Warm with good color, no clubbing or cyanosis. There is no edema noted. PERIPHERAL VASCULAR: Pulses present and equally palpable; 2+ throughout. LAB DATA: CBC: Results from last 7 days Lab Units 07/28/23 0410 07/27/23 0340 07/26/23 0504 WBC AUTO x10*3/uL 8.7 8.3 11.4* RBC AUTO x10*6/uL 2.97* 3.05* 3.26* HEMOGLOBIN g/dL 8.9* 9.4* 9.9* HEMATOCRIT % 27.2* 28.6* 29.7* MCV fL 92 94 91 MCH pg 30.0 30.8 30.4 MCHC g/dL 32.7 32.9 33.3 RDW % 13.6 13.9 13.8 PLATELETS AUTO x10*3/uL 125* 86* 160 MPV fL -- 11.6* -- CMP: Results from last 7 days Lab Units 07/28/2340907/27/2333907/26/23 0504 07/25/23 1455 07/25/23 0522 SODIUM mmol/L 135* 136 137 < > 137 POTASSIUM mmol/L 3.8 4.2 4.7 < > 4.1 CHLORIDE mmol/L 103 104 105 < > 105 CO2 mmol/L 25 25 26 < > 23 BUN mg/dL 20 12 14 < > 22 CREATININE mg/dL 1.14 0.98 1.13 < > 1.16 GLUCOSE mg/dL 112* 116* 117* < > 95 PROTEIN TOTAL g/dL -- -- -- -- 7.0 CALCIUM mg/dL 8.2* 8.3* 8.1* < > 9.1 BILIRUBIN TOTAL mg/dL -- -- -- -- 0.6 ALK PHOS U/L -- -- -- -- 70 AST U/L -- -- -- -- 54* ALT U/L -- -- -- -- 73* < > = values in this interval not displayed. BMP: Results from last 7 days Lab Units 07/28/2340907/27/2333907/26/23 0504 SODIUM mmol/L 135* 136 137 POTASSIUM mmol/L 3.8 4.2 4.7 CHLORIDE mmol/L 103 104 105 CO2 mmol/L 25 25 26 BUN mg/dL 20 12 14 CREATININE mg/dL 1.14 0.98 1.13 CALCIUM mg/dL 8.2* 8.3* 8.1* GLUCOSE mg/dL 112* 116* 117* Magnesium: Results from last 7 days Lab Units 07/28/2340907/27/2333907/26/23 0504 MAGNESIUM mg/dL 2.23 2.24 2.10 DIAGNOSTIC TESTING: ECG 12 Lead Result Date: 07/20/2023 Normal sinus rhythm Possible Inferior infarct (cited on or before 19-JUL-2023) Abnormal ECG When compared with ECG of 19-JUL-2023 07:06, No significant change was found Carotid duplex bilateral Result Date: 07/19/2023 Interpreted By: Hector Smith, STUDY: [facility] US CAROTID ARTERY DUPLEX BILATERAL; 07/19/2023 2:38 pm INDICATION: Signs/Symptoms:pre-op CABG; r/o carotid stenosis. COMPARISON: None. ACCESSION NUMBER(S): [id number] ORDERING CLINICIAN: MARYANNE YOU TECHNIQUE: Vascular ultrasound of the extracranial carotid system was performed bilaterally. Griffith scale, color Doppler and spectral Doppler waveform analysis was performed. FINDINGS: RIGHT: On the right There is no evidence of atheromatous plaques in the common carotid arteries, visualized portions of the internal carotid arteries, and the proximal external carotid arteries. Doppler studies demonstrate normal flow pattern without evidence of turbulent flow.. The peak systolic velocities are as follows: RIGHT SIDE PEAK SYSTOLIC VELOCITY TABLE: CCA 116 cm/sec. ICA 58 cm/sec. ECA 105 cm/sec. The ratio of the peak systolic velocity of the right ICA/CCA is 0.5. RIGHT VERTEBRAL ARTERY: The right vertebral artery demonstrates proximal normal anterograde flow LEFT: On the left There is no evidence of atheromatous plaques in the common carotid arteries, visualized portions of the internal carotid arteries, and the proximal external carotid arteries. Doppler studies demonstrate normal flow pattern without evidence of turbulent flow.. The peak systolic velocities are as follows: LEFT SIDE PEAK SYSTOLIC VELOCITY TABLE: CCA 99 cm/sec. ICA 54 cm/sec. ECA 98 cm/sec. The ratio of the peak systolic velocity of the left ICA/CCA is 0.6. LEFT VERTEBRAL ARTERY: The left vertebral artery demonstrates proximal normal anterograde flow Normal flow pattern without evidence of hemodynamically relevant stenosis or atheromatous plaques in the visualized portions of the carotid circulation as described above. MACRO: None Signed by: Hector Smith 07/19/2023 3:43 PM Dictation workstation: [id number] XR chest 2 views Result Date: 07/19/2023 Interpreted By: Hector Smith, STUDY: XR CHEST 2 VIEWS; 07/19/2023 2:08 pm INDICATION: Signs/Symptoms:pre-op CABG. COMPARISON: None. ACCESSION NUMBER(S): [id number] ORDERING CLINICIAN: MARYANNE YOU FINDINGS: CARDIOMEDIASTINAL SILHOUETTE: Cardiomediastinal silhouette is normal in size and configuration. LUNGS: Mild left basilar atelectasis is present. No focal consolidation. No pleural effusion or pneumothorax. ABDOMEN: No remarkable upper abdominal findings. BONES: Multilevel predominantly anterior endplate spurring/partially bridging osteophytes are present in the thoracic spine. 1. Mild left basilar atelectasis. No focal consolidation. MACRO: None. Signed by: Hector Smith 07/19/2023 3:41 PM Dictation workstation: [id number] Transthoracic Echo (TTE) Complete Result Date: 07/19/2023 [place] [address] TRANSTHORACIC ECHOCARDIOGRAM REPORT Patient Name: ROBERT SMILEY Reading Physician: [id number] Dev Ding MD, [facility] Study Date: 07/19/2023 Ordering Provider: [id number] EDUARDO FERRO MRN/PID: [id number] Fellow: Nurse: Mendoza Dowd RN Date of /Age: 5 1960 / 62 years Complaint Investigations Officer: Chloé Lyman RDCS Gender: M Additional Staff: Height: 172.72 cm Admit Date: 07/18/2023 Weight: 105.69 kg Admission Status: Inpatient - Routine BSA / BMI: 2.18 m2 / 35.43 Department Location: [place] [address] Echo Lab Blood Pressure: 112 /58 mmHg Study Type: TRANSTHORACIC ECHO (TTE) COMPLETE Diagnosis/ICD: Encounter for preprocedural cardiovascular examination-Z01.810 Indication: PRE-OP CABG CPT Codes: Echo Complete w Full Doppler-[id number] Patient History: Pertinent History: CAD, Hyperlipidemia and MA. Study Detail: The following Echo studies were performed: 2D, M-Mode, Doppler and color flow. Definity used as a contrast agent for endocardial border definition. Total contrast used for this procedure was 2 mL via IV push. The patient was awake. PHYSICIAN INTERPRETATION: Left Ventricle: Left ventricular systolic function is normal, with an estimated ejection fraction of 55-60%. There are no regional wall motion abnormalities. The left ventricular cavity size is normal. The left ventricular septal wall thickness is mildly increased. There is normal left ventricular posterior wall thickness. Spectral Doppler shows an impaired relaxation pattern of left ventricular diastolic filling. Left Atrium: The left atrium is normal in size. Left atrial volume index 18.5 mL/m2. Right Ventricle: The right ventricle is normal in size. There is normal right ventricular global systolic function. Normal right ventricular chamber size and function. Right Atrium: The right atrium is normal in size. Aortic Valve: The aortic valve was not well visualized. There is mild aortic valve cusp calcification. There is no evidence of aortic valve regurgitation. The peak instantaneous gradient of the aortic valve is 7.8 mmHg. The mean gradient of the aortic valve is 4.0 mmHg. Mitral Valve: The mitral valve is normal in structure. There is trace mitral valve regurgitation. Tricuspid Valve: The tricuspid valve is structurally normal. There is trace tricuspid regurgitation. The right ventricular systolic pressure is unable to be estimated. Trivial tricuspid regurgitation. Pulmonic Valve: The pulmonic valve is structurally normal. There is no indication of pulmonic valve regurgitation. Pericardium: There is a trivial pericardial effusion. Aorta: The aortic root is normal. Systemic Veins: The inferior vena cava appears to be of normal size. There is IVC inspiratory collapse greater than 50%. CONCLUSIONS: 1. Left ventricular systolic function is normal with a 55-60% estimated ejection fraction. 2. Spectral Doppler shows an impaired relaxation pattern of left ventricular diastolic filling. 3. Normal right ventricular chamber size and function. 4. Trivial tricuspid regurgitation. 5. No previous available for comparison. QUANTITATIVE DATA SUMMARY: 2D MEASUREMENTS: Normal Ranges: Ao Root d: 2.90 cm (2.0-3.7cm) LAs: 3.70 cm (2.7-4.0cm) IVSd: 1.20 cm (0.6-1.1cm) LVPWd: 0.93 cm (0.6-1.1cm) LVIDd: 3.80 cm (3.9-5.9cm) LVIDs: 2.60 cm LV Mass Index: 58.8 g/m2 LV % FS 31.6 % LA VOLUME: Normal Ranges: LA Vol A4C: 37.5 ml (22+/-6mL/m2) LA Vol A2C: 40.3 ml LA Vol BP: 41.3 ml LA Vol Index A4C: 17.2ml/m2 LA Vol Index A2C: 18.5 ml/m2 LA Vol Index BP: 19.0 ml/m2 LA Area A4C: 15.7 cm2 LA Area A2C: 15.3 cm2 LA Major [place] A4C: 5.6 cm LA Major [place] A2C: 4.9 cm LA Volume Index: 17.9 ml/m2 RA VOLUME BY A/L METHOD: Normal Ranges: RA Vol A4C: 33.3 ml (8.3-19.5ml) RA Vol Index A4C: 15.3 ml/m2 RA Area A4C: 13.7 cm2 RA [place] A4C: 4.8 cm AORTA MEASUREMENTS: Normal Ranges: Asc Ao, d: 3.10 cm (2.1-3.4cm) LV SYSTOLIC FUNCTION BY 2D PLANIMETRY (MOD): Normal Ranges: EF-A4C View: 58.9 % (>=55%) EF-A2C View: 54.9 % EF-Biplane: 58.6 % LV DIASTOLIC FUNCTION: Normal Ranges: MV Peak E: 0.85 m/s (0.7-1.2 m/s) MV Peak A: 0.80 m/s (0.42-0.7 m/s) E/A Ratio: 1.07 (1.0-2.2) MV e' 0.11 m/s (>8.0) MV lateral e' 0.11 m/s MV medial e' 0.09 m/s E/e' Ratio: 7.73 (<8.0) MITRAL VALVE: Normal Ranges: MV DT: 229 msec (150-240msec) AORTIC VALVE: Normal Ranges: AoV Vmax: 1.40 m/s (<=1.7m/s) AoV Peak P.8 mmHg (<20mmHg) AoV Mean P.0 mmHg (1.7-11.5mmHg) LVOT Max Gael: 1.20 m/s (<=1.1m/s) AoV VTI: 24.60 cm (18-25cm) LVOT VTI: 24.30 cm LVOT Diameter: 2.00 cm (1.8-2.4cm) AoV Area, VTI: 3.10 cm2 (2.5-5.5cm2) AoV Area,Vmax: 2.69 cm2 (2.5-4.5cm2) AoV Dimensionless Index: 0.99 RIGHT VENTRICLE: RV Basal 3.11 cm RV Mid 2.26 cm RV Major 7.5 cm TAPSE: 25.4 mm RV s' 0.14 m/s TRICUSPID VALVE/RVSP: Normal Ranges: IVC Diam: 1.65 cm PULMONIC VALVE: Normal Ranges: PV Accel Time: 77 msec (>120ms) PV Max Gael: 1.0 m/s (0.6-0.9m/s) PV Max P.7 mmHg [id number] Dev Ding MD, [facility] Electronically signed on 07/19/2023 at 2:33:[address] chest wo IV contrast Result Date: 07/19/2023 Interpreted By: Hector Smith, STUDY: CT CHEST WO IV CONTRAST; 07/19/2023 1:48 pm INDICATION: Signs/Symptoms:pre-op CABG; please assess ascending aorta for atherosclerosis and size. COMPARISON: None. ACCESSION NUMBER(S): [id number] ORDERING CLINICIAN: MARYANNE YOU TECHNIQUE: Contiguous unenhanced axial images were obtained through the chest. Images were reformatted in axial, coronal, and sagittal planes. FINDINGS: LUNGS and AIRWAYS: Small bands of subsegmental atelectasis or scar are present in the left lower lobe anteriorly as well as the lingula. Mild dependent atelectasis present bilaterally. No focal consolidation. No pleural effusion or pneumothorax. MEDIASTINUM and LITO, LOWER NECK AND AXILLA: No mediastinal or hilar lymphadenopathy is seen. No axillary lymphadenopathy. HEART and VESSELS: There is no thoracic aortic aneurysm. Ascending thoracic aorta is uniform in caliber measuring approximately 3.1 x 3.1 cm in transverse and AP diameters. Small irregular calcifications are seen at the aortic root level. No additional calcification is seen in the ascending thoracic aorta. Small atherosclerotic calcification is seen in the distal aortic arch. Descending thoracic aorta is uniform in caliber measuring 2.4 cm in diameter. Coronary artery calcifications and/or stents are present. No pericardial effusion. Heart is not significantly enlarged. UPPER ABDOMEN: Gallbladder is not abnormally distended and contains mixed attenuation gallstone in the dependent portion toward the base. No pericholecystic inflammation is seen. No biliary dilation. CHEST WALL and OSSEOUS STRUCTURES: There is mild S-shaped scoliosis of the thoracic spine. Multilevel disc space narrowing and predominantly anterior endplate spurring/partially bridging osteophytes are most prominent in the mid-lower thoracic spine. 1. No thoracic aortic aneurysm. Ascending thoracic aorta measures 3.1 cm in diameter. 2. Irregular calcification at the aortic root level. No evidence of calcification in the ascending thoracic aorta. 3. Cholelithiasis. No pericholecystic inflammation. No biliary dilation. MACRO: None. Signed by: Hector Smith 07/19/2023 2:09 PM Dictation workstation: [id number] ECG 12 lead Result Date: 07/19/2023 Normal sinus rhythm Possible Inferior infarct , age undetermined Abnormal ECG No previous ECGs available Confirmed by Courtney Shrestha ([id number]) on 07/19/2023 7:31:32 AM XR chest 1 view Final Result The right jugular central venous catheter is been removed. Bibasilar atelectatic changes similar to prior exam. MACRO: None Signed by: Hiren Vizcarra 07/28/2023 7:46 AM Dictation workstation: [id number] XR chest 1 view Final Result 1. No significant interval change. MACRO: None. Signed by: Hector Smith 07/27/2023 8:05 AM Dictation workstation: [id number] XR chest 1 view Final Result No pneumothorax MACRO: None Signed by: Isaiah Cross 07/26/2023 3:01 PM Dictation workstation: [id number] XR chest 1 view Final Result 1. Low inspiratory volume. Bibasilar infiltrates and/or atelectasis, left greater than right, similar to prior. MACRO: None. Signed by: Hector Smith 07/26/2023 8:21 AM Dictation workstation: [id number] XR chest 1 view Final Result Postop changes. Question of basilar infiltrate or atelectasis. A nasogastric tube may be present. The course and location of the tip is uncertain. MACRO: none Signed by: Janet Pate 07/25/2023 4:09 PM Dictation workstation: [id number] XR chest 1 view Final Result 1. Interval [place] catheter placement tip of the proximal right pulmonary artery as discussed above. No pneumothorax. MACRO: None Signed by: Bjorn Sandoval 07/25/2023 10:38 AM Dictation workstation: [id number] Anesthesia Intraoperative Transesophageal Echocardiogram Final Result Carotid duplex bilateral Final Result Normal flow pattern without evidence of hemodynamically relevant stenosis or atheromatous plaques in the visualized portions of the carotid circulation as described above. MACRO: None Signed by: Hector Smith 07/19/2023 3:43 PM Dictation workstation: [id number] XR chest 2 views Final Result 1. Mild left basilar atelectasis. No focal consolidation. MACRO: None. Signed by: Hector Smith 07/19/2023 3:41 PM Dictation workstation: [id number] CT chest wo IV contrast Final Result 1. No thoracic aortic aneurysm. Ascending thoracic aorta measures 3.1 cm in diameter. 2. Irregular calcification at the aortic root level. No evidence of calcification in the ascending thoracic aorta. 3. Cholelithiasis. No pericholecystic inflammation. No biliary dilation. MACRO: None. Signed by: Hector Smith 07/19/2023 2:09 PM Dictation workstation: [id number] Transthoracic Echo (TTE) Complete Final Result Transthoracic Echo (TTE) Complete Result Date: 07/19/[address] [address] TRANSTHORACIC ECHOCARDIOGRAM REPORT Patient Name: ROBERT SMILEY Reading Physician: [id number] Dev Ding MD, [facility] Study Date: 07/19/2023 Ordering Provider: [id number] EDUARDO FRERO MRN/PID: [id number] Fellow: Nurse: Mendoza Dowd RN Date of /Age: 5 1960 / 62 years Complaint Investigations Officer: Chloé Lyman RDCS Gender: M Additional Staff: Height: 172.72 cm Admit Date: 07/18/2023 Weight: 105.69 kg Admission Status: Inpatient - Routine BSA / BMI: 2.18 m2 / 35.43 Department Location: [place] [address] Echo Lab Blood Pressure: 112 /58 mmHg Study Type: TRANSTHORACIC ECHO (TTE) COMPLETE Diagnosis/ICD: Encounter for preprocedural cardiovascular examination-Z01.810 Indication: PRE-OP CABG CPT Codes: Echo Complete w Full Doppler-39513 Patient History: Pertinent History: CAD, Hyperlipidemia and MA. Study Detail: The following Echo studies were performed: 2D, M-Mode, Doppler and color flow. Definity used as a contrast agent for endocardial border definition. Total contrast used for this procedure was 2 mL via IV push. The patient was awake. PHYSICIAN INTERPRETATION: Left Ventricle: Left ventricular systolic function is normal, with an estimated ejection fraction of 55-60%. There are no regional wall motion abnormalities. The left ventricular cavity size is normal. The left ventricular septal wall thickness is mildly increased. There is normal left ventricular posterior wall thickness. Spectral Doppler shows an impaired relaxation pattern of left ventricular diastolic filling. Left Atrium: The left atrium is normal in size. Left atrial volume index 18.5 mL/m2. Right Ventricle: The right ventricle is normal in size. There is normal right ventricular global systolic function. Normal right ventricular chamber size and function. Right Atrium: The right atrium is normal in size. Aortic Valve: The aortic valve was not well visualized. There is mild aortic valve cusp calcification. There is no evidence of aortic valve regurgitation. The peak instantaneous gradient of the aortic valve is 7.8 mmHg. The mean gradient of the aortic valve is 4.0 mmHg. Mitral Valve: The mitral valve is normal in structure. There is trace mitral valve regurgitation. Tricuspid Valve: The tricuspid valve is structurally normal. There is trace tricuspid regurgitation. The right ventricular systolic pressure is unable to be estimated. Trivial tricuspid regurgitation. Pulmonic Valve: The pulmonic valve is structurally normal. There is no indication of pulmonic valve regurgitation. Pericardium: There is a trivial pericardial effusion. Aorta: The aortic root is normal. Systemic Veins: The inferior vena cava appears to be of normal size. There is IVC inspiratory collapse greater than 50%. CONCLUSIONS: 1. Left ventricular systolic function is normal with a 55-60% estimated ejection fraction. 2. Spectral Doppler shows an impaired relaxation pattern of left ventricular diastolic filling. 3. Normal right ventricular chamber size and function. 4. Trivial tricuspid regurgitation. 5. No previous available for comparison. QUANTITATIVE DATA SUMMARY: 2D MEASUREMENTS: Normal Ranges: Ao Root d: 2.90 cm (2.0-3.7cm) LAs: 3.70 cm (2.7-4.0cm) IVSd: 1.20 cm (0.6-1.1cm) LVPWd: 0.93 cm (0.6-1.1cm) LVIDd: 3.80 cm (3.9-5.9cm) LVIDs: 2.60 cm LV Mass Index: 58.8 g/m2 LV % FS 31.6 % LA VOLUME: Normal Ranges: LA Vol A4C: 37.5 ml (22+/-6mL/m2) LA Vol A2C: 40.3 ml LA Vol BP: 41.3 ml LA Vol Index A4C: 17.2ml/m2 LA Vol Index A2C: 18.5 ml/m2 LA Vol Index BP: 19.0 ml/m2 LA Area A4C: 15.7 cm2 LA Area A2C: 15.3 cm2 LA [place] A4C: 5.6 cm LA Major [place] A2C: 4.9 cm LA Volume Index: 17.9 ml/m2 RA VOLUME BY A/L METHOD: Normal Ranges: RA Vol A4C: 33.3 ml (8.3-19.5ml) RA Vol Index A4C: 15.3 ml/m2 RA Area A4C: 13.7 cm2 RA [place] A4C: 4.8 cm AORTA MEASUREMENTS: Normal Ranges: Asc Ao, d: 3.10 cm (2.1-3.4cm) LV SYSTOLIC FUNCTION BY 2D PLANIMETRY (MOD): Normal Ranges: EF-A4C View: 58.9 % (>=55%) EF-A2C View: 54.9 % EF-Biplane: 58.6 % LV DIASTOLIC FUNCTION: Normal Ranges: MV Peak E: 0.85 m/s (0.7-1.2 m/s) MV Peak A: 0.80 m/s (0.42-0.7 m/s) E/A Ratio: 1.07 (1.0-2.2) MV e' 0.11 m/s (>8.0) MV lateral e' 0.11 m/s MV medial e' 0.09 m/s E/e' Ratio: 7.73 (<8.0) MITRAL VALVE: Normal Ranges: MV DT: 229 msec (150-240msec) AORTIC VALVE: Normal Ranges: AoV Vmax: 1.40 m/s (<=1.7m/s) AoV Peak P.8 mmHg (<20mmHg) AoV Mean P.0 mmHg (1.7-11.5mmHg) LVOT Max Gael: 1.20 m/s (<=1.1m/s) AoV VTI: 24.60 cm (18-25cm) LVOT VTI: 24.30 cm LVOT Diameter: 2.00 cm (1.8-2.4cm) AoV Area, VTI: 3.10 cm2 (2.5-5.5cm2) AoV Area,Vmax: 2.69 cm2 (2.5-4.5cm2) AoV Dimensionless Index: 0.99 RIGHT VENTRICLE: RV Basal 3.11 cm RV Mid 2.26 cm RV Major 7.5 cm TAPSE: 25.4 mm RV s' 0.14 m/s TRICUSPID VALVE/RVSP: Normal Ranges: IVC Diam: 1.65 cm PULMONIC VALVE: Normal Ranges: PV Accel Time: 77 msec (>120ms) PV Max Gael: 1.0 m/s (0.6-0.9m/s) PV Max P.7 mmHg [id number] Dev Ding MD, [facility] Electronically signed on 07/19/2023 at 2:33:57 PM Final RADIOLOGY: XR chest 1 view Final Result The right jugular central venous catheter is been removed. Bibasilar atelectatic changes similar to prior exam. MACRO: None Signed by: Hiren Vizcarra 07/28/2023 7:46 AM Dictation workstation: [id number] XR chest 1 view Final Result 1. No significant interval change. MACRO: None. Signed by: Hector Smith 07/27/2023 8:05 AM Dictation workstation: [id number] XR chest 1 view Final Result No pneumothorax MACRO: None Signed by: Isaiah Cross 07/26/2023 3:01 PM Dictation workstation: [id number] XR chest 1 view Final Result 1. Low inspiratory volume. Bibasilar infiltrates and/or atelectasis, left greater than right, similar to prior. MACRO: None. Signed by: Hector Smith 07/26/2023 8:21 AM Dictation workstation: [id number] XR chest 1 view Final Result Postop changes. Question of basilar infiltrate or atelectasis. A nasogastric tube may be present. The course and location of the tip is uncertain. MACRO: none Signed by: Janet Pate 07/25/2023 4:09 PM Dictation workstation: [id number] XR chest 1 view Final Result 1. Interval [place] catheter placement tip of the proximal right pulmonary artery as discussed above. No pneumothorax. MACRO: None Signed by: Bjorn Sandoval 07/25/2023 10:38 AM Dictation workstation: [id number] Anesthesia Intraoperative Transesophageal Echocardiogram Final Result Carotid duplex bilateral Final Result Normal flow pattern without evidence of hemodynamically relevant stenosis or atheromatous plaques in the visualized portions of the carotid circulation as described above. MACRO: None Signed by: Hector Smith 07/19/2023 3:43 PM Dictation workstation: [id number] XR chest 2 views Final Result 1. Mild left basilar atelectasis. No focal consolidation. MACRO: None. Signed by: Hector Smith 07/19/2023 3:41 PM Dictation workstation: [id number] CT chest wo IV contrast Final Result 1. No thoracic aortic aneurysm. Ascending thoracic aorta measures 3.1 cm in diameter. 2. Irregular calcification at the aortic root level. No evidence of calcification in the ascending thoracic aorta. 3. Cholelithiasis. No pericholecystic inflammation. No biliary dilation. MACRO: None. Signed by: Hector Smith 07/19/2023 2:09 PM Dictation workstation: [id number] Transthoracic Echo (TTE) Complete Final Result PROBLEM LIST Patient Active Problem List Diagnosis Acute myocardial infarction due to left coronary artery occlusion (CMS/HCC) Hyperlipidemia Coronary artery disease of [place] artery of [place] heart with stable angina pectoris (CMS/HCC) Asperger's syndrome Elevated troponin ASSESSMENT: CAD triple-vessel disease Hypertension Dyslipidemia PLAN: Patient seen and examined in conjunction with Troy Ferro APRN and agree with the evaluation as noted above. 62-year-old gentleman who was transferred from [facility] for possible angina. He has a history of CAD hypertension dyslipidemia and presented to the hospital with unstable angina with radiation to the left arm. Emergent cardiac catheterization showed severe triple-vessel disease as noted above with 95% LAD, left circumflex as well as RCA. Patient was transferred for CABG. He is currently chest pain-free. EKG shows sinus rhythm with inferolateral ST depression. Cardiac exam reveals regular first and second heart sound, no murmurs are heard. Chest is clear to auscultation. ASSESSMENT AND PLAN: 1. CAD: With severe triple-vessel disease, awaiting cardiac evaluation. In the meantime, we will get an echocardiogram to rule out any significant valvular abnormalities and we will hold his Plavix for impending surgery. Full recommendations to be based on CV surgical evaluation. 2.Hypertension: We will continue to optimize blood pressure control. 3. Dyslipidemia: Continue with her current high intensity lipid-lowering therapy. DUSTIN 07/20/23 Tele monitoring Continue the heparin drip Plan for CABG on Tuesday Daily EKGs Further recommendations per Dr Emmanuel Ferro CNP [facility] Of note, this documentation is completed using the [employer] system (voice recognition software). There may be spelling and/or grammatical errors that were not corrected prior to final submission. Please do not hesitate to call with questions. Patient seen and examined in conjunction with Troy Ferro APRN and agree with the evaluation as noted above. Patient remains in status quo, continues to be chest pain-free. He is awaiting CABG tentatively scheduled for next week Tuesday pending washout of Plavix. Preop echo shows normal LV function with no gross valvular abnormalities as noted above. Will continue with her other current cardiac medications and plan for surgery as scheduled. DUSTIN 07/21/23 Tele monitoring Aspirin 81 mg daily Lipitor 40 mg daily Imdur 30 mg daily Lopressor 25 mg p.o. twice daily Continue the heparin drip Plan for CABG on Tuesday Further recommendations per Dr Benitez Patient seen and examined in conjunction with Troy Ferro APRN and agree with the evaluation as noted above. Patient continues to do well with no recurrent chest pain. Awaiting surgery as scheduled. Continues to maintain sinus rhythm with no significant arrhythmias on the monitor. Will continue current cardiac medications and follow the patient postoperatively. DUSTIN 07/22/23 Tele monitoring Continue the heparin drip for now Plan for CABG on Tuesday Further recommendations per Dr Benitez 07/23/23: Patient continues to do well and remains in status quo with no chest pain or shortness of breath with ambulation. Awaiting CABG on Tuesday as scheduled. We will continue with current medications and follow the patient postoperatively. DUSTIN 07/24/23 Patient continues to do well with no recurrent chest pain or significant shortness of breath. He is awaiting CABG scheduled for tomorrow we will continue with current medications and follow the patient postoperatively. AKA 07/26/23 Alert and oriented x 3. Up in chair. Very hard of hearing but conversing appropriately. Denies any significant chest pain or shortness of breath. Still on small amount of norepinephrine which is weaning off. Receiving albumin this morning. Plan to remove chest tubes today along with PA catheter Gentle hydration, monitor strict I's and O's and daily weights Initiate beta-roman when BP allows Will continue to follow along 07/27/23 Alert and oriented x 3. Up in chair. Very hard of hearing but conversing appropriately. Denies any significant chest pain or shortness of breath. Currently on 2 L nasal cannula with good oxygen saturation of 99% Chest tubes removed yesterday Would benefit from central line and Mac removal today Low-dose beta-roman added by cardiac surgery and ICU service Labile BP. Seems euvolemic and no gross fluid overload. Would probably hold off on diuresis but will defer to ICU cardiac surgery team Continue amiodarone infusion for now. Remains in normal sinus rhythm. Will continue to follow along Thom Melgar [facility] Adult Gerontology Acute Care Nurse Practitioner [facility] [phone] Patient seen and examined in conjunction with Thom Melgar APRN/IRENA and agree with the evaluation as noted above. Patient had an episode of paroxysmal A-fib overnight, hospitalist he converted to sinus rhythm on IV amiodarone and is currently on maintenance gtt. We will continue for another 24 hours and switch to p.o. in a.m. He has been ambulating with no chest pain or significant shortness of breath. Consider possible transfer to telemetry floor in a.m. AKA 07/28/23 Alert and oriented x 3. Up in chair. Very hard of hearing but conversing appropriately. Denies any significant chest pain or shortness of breath. Currently on room air with good oxygen saturation Monitor electrolytes, keep potassium greater than 4 and using greater than 2 Low-dose beta-roman added by cardiac surgery and ICU service BP better, continue to monitor Converted to normal sinus rhythm however converted back to A-fib with RVR earlier this morning. Patient received bolus of amiodarone and plan to continue drip. Plan will be switched to oral when able. Will continue to follow along Patient seen and examined in conjunction with Thom Melgar APRN/IRENA and agree with the evaluation as noted above. Patient had recurrent episode of A-fib with RVR requiring IV amiodarone bolus and is currently on amiodarone gtt.. Will continue with the drip for now and overlap with p.o. amiodarone 200 mg twice a day. In view of recurrent A-fib, patient will need initiation of oral anticoagulation and we will check with CV surgery 1 this can be started. He can potentially be transferred to telemetry floor once he is off of IV amiodarone. AKA [facility] Critical Care Medicine Progress Note Date: 07/28/2023 Patient: Robetr Smiley Date of : 1960 Admit Date: 07/19/2023 ===== Original Chief Complaint: Chest pain Interval ICU Events: Pt overnight was noted to desaturate to 70s intermittently while sleeping and placed on Nasal cannula at 3L but this morning is on Room Air. Patient otherwise without any other acute events and continued on amio gtt at 0.5mg/hr and in sinus still. Pt UOP was 1.9L and is net negative 388cc in 24 hours. Patient's morning Cxr appears normal and Plts have improved this morning but slight Hgb drop to 8.6 from 9.4 yesterday.Pt states that he feels well and without any complaints. While I was talking to the patient he went back into Afib with RVR but denied any complaints and was hemodynamically stable. Medical History: Past Medical History: Diagnosis Date Asperger's syndrome Coronary artery disease Gout Hyperlipidemia Myocardial infarct (CMS/HCC) Past Surgical History: Procedure Laterality Date APPENDECTOMY CORONARY STENT PLACEMENT Medications Prior to Admission Medication Sig Dispense Refill Last Dose clopidogrel (Plavix) 75 mg tablet Take 1 tablet (75 mg) by mouth once daily. meloxicam (Mobic) 7.5 mg tablet Take 1 tablet (7.5 mg) by mouth once daily. Unsure if dose is correct Patient has no known allergies. Social History Tobacco Use Smoking status: Never Smokeless tobacco: Never Vaping Use Vaping Use: Never used Substance Use Topics Drug use: Never No family history on file. Review of Systems: 14 point review of systems was completed and negative except for those specially mention in my HPI Physical Exam: Heart Rate: [76-86] Temp: [36.4 C (97.5 F)-37.1 C (98.8 F)] Resp: [10-29] BP: (86-111)/(44-62) Weight: [107 kg (236 lb 15.9 oz)-110 kg (242 lb 4.6 oz)] SpO2: [78 %-100 %] Physical Exam Constitutional: General: He is not in acute distress. Appearance: He is not ill-appearing. HENT: Ears: Comments: Patient with hearing aids in place Mouth/Throat: Mouth: Mucous membranes are moist. Eyes: General: No scleral icterus. Extraocular Movements: Extraocular movements intact. Pupils: Pupils are equal, round, and reactive to light. Neck: Comments: Right internal jugular Introducer in place and clean and dry and intact Cardiovascular: Rate and Rhythm: Normal rate and regular rhythm. Heart sounds: No murmur heard. Pulmonary: Effort: Pulmonary effort is normal. Breath sounds: Normal breath sounds. No wheezing or rales. Abdominal: General: Abdomen is flat. Bowel sounds are normal. Palpations: Abdomen is soft. Tenderness: There is no abdominal tenderness. Musculoskeletal: Right lower leg: No edema. Left lower leg: No edema. Skin: General: Skin is warm and dry. Findings: No rash. Neurological: General: No focal deficit present. Mental Status: He is oriented to person, place, and time. Mental status is at baseline. Cranial Nerves: No cranial nerve deficit. Motor: No weakness. Psychiatric: Mood and Affect: Mood normal. Behavior: Behavior normal. Objective: I have reviewed all medications, laboratory results, and imaging pertinent for today's encounter Assessment/Plan: Pt is a 62 y/o M w/ a PMHx of HTN, HLD, CAD s/p PCI (2017), and life time non-smoker, hearing loss who presented to OSH with chest pain and underwent LHC showing severe Triple vessel disease and was transferred to [facility] for CABG eval. Pt currently now POD# 2 s/p CABG x 4 who is currently stable and course complicated by nbew Afib with RVR overnight and now sinus but otherwise doing well and hemodynamically stable at this time. Neuro/Psych/Pain Ctrl/Sedation: #Post-op pain - Continue with PO tylenol and PRN opioids as needed - C/W lidocain patch - Delirium precautions and CAM-ICU - PT/OT and aggressive ambulation Respiratory/ENT: - No current active issues and s/p chest tube removals yesterday - Will wean supplemental Oxygen as tolerated to SpO2 goal of 92% - No need for further CXRs Cardiovascular: #CAD s/p PCI #CAD s/p CABG x 4 #Afib with RVR #HTN #HLD #Post-op Pericarditis - Will continue with ASA, Statin, BB - C/W colchicine (Day 2) and c/w tylenol for pericarditis - Will give IV bolus of 150mg of Amio and c/w gtt at 0.5 for now and speak to cards about starting oral load - Discussed with CT surgery and if still in afib tomorrow will consider DOAC for anticoagulation Renal/Volume Status (Intra & Extravascular): - No current active issues - Will remove mac today - Monitor Cr daily and UOP Q4H - Will do lasix Q12H today with goal net negative 1-2L in 24 hours GI: - Cardiac diet - C/W Miralax for Bowel Regimen - No indication for PPI Endocrine #Mild hyperglycemia - Finger sticks under control and will c/w Fss AC/at bedtime and ISS -Finger stick goals of 100-180 Infectious Disease: - No current active infectious issues at this time and will continue to monitor off Abx Heme/Onc: #Thrombocytopenia - Plts improved today and spoke with CT surgery and will start on HSQ - Monitor Hgb daily and transfuse for Hgb<8 - Transfuse for Plts<10k unless febrile Ethics/Code Status: -Full code - Will coordinate with SW for post-op car needs at home and family had expressed need for patient with more assistance Automation Driver: DVT Prophylaxis: HSQ GI Prophylaxis: None Bowel Regimen: Yes Diet: Cardiac CVC: None Cheryl: None Mac: None Restraints: None Dispo: ICU care Critical Care time: 35 minutes Critical Care Activities: Coordination of other services involved in patient's care, co-management and titration of IV anti-arrhythmic drips Apolinar Forbes MD Discussed with social work , plan is hhc . HHC list printed from [facility] and provided to patient to look over with family. Pt is agreeable. Therapy [facility] 16. Will follow up for preference Melissa Head RN Physical Therapy Physical Therapy Treatment Patient Name: Robert Smiley Today's Date: 07/27/2023 Time Calculation Start Time: 0200 Stop Time: 0217 Time Calculation (min): 17 min Assessment/Plan PT Assessment End of Session Communication: Bedside nurse End of Session Patient Position: Up in chair PT Plan Treatment/Interventions: Gait training, Transfer training, Bed mobility PT Plan: Skilled PT PT Frequency: 4 times per week General Visit Information: PT Visit PT Received On: 07/27/23 General Prior to Session Communication: Bedside nurse Patient Position Received: Bed, 3 rail up General Comment: (Pt. agreeable to therapy stating I need help in referance to getting out of bed.) Subjective Precautions: Precautions Precautions Comment: (MITT precautions educated per handout issued, high fall risk) Treatments: Ambulation/Gait Training Ambulation/Gait Training Performed: (gait training with mark ww with close cg, heels almost touching feet er with decreased stride and discontinuous steps performing 150' x 1, 200' x 1.) Transfers Transfer: Yes (supine to sit with min x 1 and verbal instructions to assure sternal precautions maintained, sit to stand with cg from bed and from chair) Outcome Measures: [facility] Basic Mobility Turning from your back to your side while in a flat bed without using bedrails: A little Moving from lying on your back to sitting on the side of a flat bed without using bedrails: A little Moving to and from bed to chair (including a wheelchair): A little Standing up from a chair using your arms (e.g. wheelchair or bedside chair): A little To walk in hospital room: A little Climbing 3-5 steps with railing: Total Basic Mobility - Total Score: 16 EDUCATION: Outpatient Education Individual(s) Educated: Patient Education Provided: Post-Op Precautions Patient Response to Education: Patient/Caregiver Verbalized Understanding of Information Encounter Problems Encounter Problems (Active) PT Problem Pt. will transfer supine/sit with MOD I (Progressing) Start: 07/26/23 Expected End: 08/09/23 Pt. will transfer sit/stand with safest and least restrictive assistive device with MOD I (Progressing) Start: 07/26/23 Expected End: 08/09/23 Pt. will complete stand pivot transfers with safest and least restrictive assistive device with MOD I (Progressing) Start: 07/26/23 Expected End: 08/09/23 Pt.will ambulate 200' with safest and least restrictive assistive device with MOD I (Progressing) Start: 07/26/23 Expected End: 08/09/23 Pt. will amb up/down 5 steps with HR and cane with CGA (Progressing) Start: 07/26/23 Expected End: 08/09/23 Pt. will perform 2 x 15 B LE AROM exercises (Progressing) Start: 07/26/23 Expected End: 08/09/23 Robert Smiley is a 62 y.o. male on day 8 of admission presenting with Acute myocardial infarction due to left coronary artery occlusion (CMS/HCC). Subjective No acute overnight events. This morning is afebrile, developed A-fib with rates in the 120s, initiated on IV amiodarone and has converted to sinus rhythm with rates in the 80-90s. ECG with diffuse ST elevation consistent with possible pericarditis, initiated colchicine 0.6 mg twice daily. Hemodynamically stable. Maintaining adequate saturations on 2 L nasal cannula, chest x-ray showing mild bibasilar atelectasis. Weight is 4 kg over baseline, length of stay fluid balance 11 L positive with 1 L positive last 24 hours. Noted to have significant trend down in platelets which appears to be hemodilutional. Initiated gentle diuresis with Lasix 20 mg IV x 1, further adjustments based on response. Mac to be discontinued. Postoperative pain well-controlled, using oxycodone and intermittent tramadol. Patient to remain in ICU while on IV amiodarone. PT/OT following. Objective Physical Exam Constitutional: General: He is not in acute distress. HENT: Head: Normocephalic. Nose: Nose normal. Mouth/Throat: Mouth: Mucous membranes are moist. Eyes: Pupils: Pupils are equal, round, and reactive to light. Neck: Comments: RIJ Cordis removed Cardiovascular: Rate and Rhythm: Normal rate and regular rhythm. Pulses: Normal pulses. Heart sounds: Friction rub present. Comments: Epicardial wires In place and insulated Pulmonary: Comments: Improving inspiratory effort, spirometry volumes 750 to 1000 mL. Sternum stable, sternotomy well approximated Breath sounds at bases otherwise clear to auscultation Abdominal: Comments: Abdomen softly distended with hypoactive bowel sounds Genitourinary: Comments: Mac draining clear yellow, to be removed Musculoskeletal: General: Normal range of motion. Cervical back: Normal range of motion. Comments: 1+ generalized edema Skin: General: Skin is warm and dry. Comments: Right EVH incision dressings dry and intact with mild surrounding ecchymosis Neurological: General: No focal deficit present. Mental Status: He is alert and oriented to person, place, and time. Psychiatric: Mood and Affect: Mood normal. Last Recorded Vitals Blood pressure (!) 102/49, pulse 80, temperature 36.4 C (97.5 F), temperature source Temporal, resp. rate 14, height 1.727 m (5' 8 ), weight 107 kg (236 lb 15.9 oz), SpO2 93 %. Intake/Output last 3 Shifts: I/O last 3 completed shifts: In: 4701.1 (42.3 mL/kg) [P.O.:240; I.V.:2601.1 (23.4 mL/kg); IV Piggyback:1860] Out: 2616 (23.5 mL/kg) [Urine:2295 (0.6 mL/kg/hr); Chest Tube:321] Weight: 111.1 kg Relevant Results Scheduled medications acetaminophen, 650 mg, oral, q4h aspirin, 81 mg, oral, Daily atorvastatin, 40 mg, oral, Nightly colchicine, 0.6 mg, oral, q12h docusate sodium, 100 mg, oral, TID [Held by provider] heparin (porcine), 5,000 Units, subcutaneous, q8h insulin lispro, 0-15 Units, subcutaneous, Before meals & nightly lidocaine, 1 patch, transdermal, q24h metoprolol tartrate, 12.5 mg, oral, BID mupirocin, , Topical, BID polyethylene glycol, 17 g, oral, Daily Continuous medications amiodarone, 0.5-1 mg/min, Last Rate: 0.5 mg/min (07/27/23 0711) niCARdipine, 2.5-15 mg/hr PRN medications PRN medications: acetaminophen OR [DISCONTINUED] acetaminophen OR [DISCONTINUED] acetaminophen, alum-mag hydroxide-simeth, bisacodyl, calcium chloride, calcium chloride, dextrose OR glucagon, HYDROmorphone, ipratropium-albuteroL, magnesium sulfate, magnesium sulfate, melatonin, metoclopramide OR metoclopramide, naloxone, niCARdipine, oxyCODONE, oxygen, potassium chloride, potassium chloride CR, potassium chloride CR Results for orders placed or performed during the hospital encounter of 07/19/23 (from the past 24 hour(s)) POCT GLUCOSE Result Value Ref Range POCT Glucose 116 (H) 74 - 99 mg/dL POCT GLUCOSE Result Value Ref Range POCT Glucose 167 (H) 74 - 99 mg/dL Calcium, Ionized Result Value Ref Range POCT Calcium, Ionized 1.15 1.1 - 1.33 mmol/L Magnesium Result Value Ref Range Magnesium 2.24 1.60 - 2.40 mg/dL CBC Result Value Ref Range WBC 8.3 4.4 - 11.3 x10*3/uL RBC 3.05 (L) 4.50 - 5.90 x10*6/uL Hemoglobin 9.4 (L) 13.5 - 17.5 g/dL Hematocrit 28.6 (L) 41.0 - 52.0 % MCV 94 80 - 100 fL MCH 30.8 26.0 - 34.0 pg MCHC 32.9 32.0 - 36.0 g/dL RDW 13.9 11.5 - 14.5 % Platelets 86 (L) 150 - 450 x10*3/uL MPV 11.6 (H) 7.5 - 11.5 fL Renal Function Panel Result Value Ref Range Glucose 116 (H) 74 - 99 mg/dL Sodium 136 136 - 145 mmol/L Potassium 4.2 3.5 - 5.3 mmol/L Chloride 104 98 - 107 mmol/L Bicarbonate 25 21 - 32 mmol/L Anion Gap 11 10 - 20 mmol/L Urea Nitrogen 12 6 - 23 mg/dL Creatinine 0.98 0.50 - 1.30 mg/dL eGFR 88 >60 mL/min/1.73m*2 Calcium 8.3 (L) 8.6 - 10.3 mg/dL Phosphorus 2.6 2.5 - 4.9 mg/dL Albumin 3.6 3.4 - 5.0 g/dL Electrocardiogram, 12-lead PRN ACS symptoms Result Value Ref Range Ventricular Rate 134 BPM Atrial Rate 174 BPM QRS Duration 74 ms QT Interval 294 ms QTC Calculation(Bazett) 439 ms R [place] 3 degrees T [place] -25 degrees QRS Count 22 beats Q Onset 220 ms T Offset 367 ms QTC [place] 384 ms ECG 12 Lead Result Value Ref Range Ventricular Rate 77 BPM Atrial Rate 77 BPM [place] Interval 142 ms QRS Duration 74 ms QT Interval 372 ms QTC Calculation(Bazett) 420 ms P [place] 3 degrees R [place] 1 degrees T [place] -14 degrees QRS Count 13 beats Q Onset 217 ms P Onset 146 ms P Offset 193 ms T Offset 403 ms QTC [place] 404 ms POCT GLUCOSE Result Value Ref Range POCT Glucose 135 (H) 74 - 99 mg/dL POCT GLUCOSE Result Value Ref Range POCT Glucose 138 (H) 74 - 99 mg/dL XR chest 1 view Result Date: 07/27/2023 Interpreted By: Hector Smith, STUDY: XR CHEST 1 VIEW; 07/27/2023 5:32 am INDICATION: Signs/Symptoms:Post op cardiac surgery. COMPARISON: 07/26/2023. ACCESSION NUMBER(S): [id number] ORDERING CLINICIAN: DELILAH QUINTERO FINDINGS: CARDIOMEDIASTINAL SILHOUETTE: Right jugular central line remains in place with tip at the SVC level. Cardiomegaly, aortic prominence with calcification and postoperative changes of the mediastinum are similar to prior. LUNGS: Inspiratory volume is low. Bibasilar irregular opacities, left more prominent than right, are similar to prior and may represent a combination of atelectasis and small infiltrates. Small pleural effusions not excluded. No appreciable pneumothorax. ABDOMEN: No remarkable upper abdominal findings. BONES: Bones are stable including endplate spurring of the spine and partially visualized degenerative changes of the shoulders. 1. No significant interval change. MACRO: None. Signed by: Hector Smith 07/27/2023 8:05 AM Dictation workstation: [id number] ECG 12 Lead Result Date: 07/27/2023 Normal sinus rhythm Inferior infarct (cited on or before 19-JUL-2023) Anterior injury pattern ACUTE MA / STEMI Abnormal ECG When compared with ECG of 26-JUL-2023 23:45, (unconfirmed) Sinus rhythm has replaced Atrial fibrillation Vent. rate has decreased BY 57 BPM Serial changes of Inferior infarct Present Electrocardiogram, 12-lead PRN ACS symptoms Result Date: 07/27/2023 Atrial fibrillation with rapid ventricular response Inferior infarct (cited on or before 19-JUL-2023) Abnormal ECG When compared with ECG of 26-JUL-2023 06:43, (unconfirmed) Atrial fibrillation has replaced Sinus rhythm Vent. rate has increased BY 46 BPM Serial changes of Inferior infarct Present XR chest 1 view Result Date: 07/26/2023 Interpreted By: Isaiah Cross, STUDY: XR CHEST 1 VIEW; 07/26/2023 2:55 pm INDICATION: Signs/Symptoms:s/p chest tube removal. COMPARISON: Portable chest earlier same day 26 July 2023 at 0509 hours ACCESSION NUMBER(S): [id number] ORDERING CLINICIAN: MARYANNE YOU TECHNIQUE: Single frontal view of the chest; Portable technique FINDINGS: The only remaining device is the well-positioned right IJ introducer sheath, tip overlies lower SVC All other tubes/lines have been removed No pneumothorax or any other additional interval change otherwise No pneumothorax MACRO: None Signed by: Isaiah Cross 07/26/2023 3:01 PM Dictation workstation: [id number] XR chest 1 view Result Date: 07/26/2023 Interpreted By: Hector Smith, STUDY: XR CHEST 1 VIEW; 07/26/2023 5:34 am INDICATION: Signs/Symptoms:Post op cardiac surgery. COMPARISON: 07/25/2023. ACCESSION NUMBER(S): [id number] ORDERING CLINICIAN: JOANNA CONROY FINDINGS: CARDIOMEDIASTINAL SILHOUETTE: Endotracheal tube and NG tube are no longer seen. [place] catheter from right jugular approach remains in place with tip projecting near the left hilar region at the main pulmonary artery level. Cephalad directed probable mediastinal drain remains in place. Mild cardiomegaly, aortic prominence and postoperative changes of the mediastinum are similar to prior. LUNGS: Left basilar chest tube is stable in position. Inspiratory volume is low. Bibasilar infiltrates and or atelectasis, [id number]-[id number]-yjkh-right, is similar to prior. No definite pleural effusion. No appreciable pneumothorax. ABDOMEN: No remarkable upper abdominal findings. BONES: Bones are stable including multilevel endplate spurring of the spine and partially visualized degenerative changes of the shoulders. 1. Low inspiratory volume. Bibasilar infiltrates and/or atelectasis, left greater than right, similar to prior. MACRO: None. Signed by: Hector Smith 07/26/2023 8:21 AM Dictation workstation: [id number] ECG 12 Lead Result Date: 07/26/2023 Normal sinus rhythm Low voltage QRS Inferior infarct (cited on or before 19-JUL-2023) Abnormal ECG When compared with ECG of 25-JUL-2023 15:06, (unconfirmed) Serial changes of evolving Inferior infarct Present XR chest 1 view Result Date: 07/25/2023 Interpreted By: Janet Pate, STUDY: XR CHEST 1 VIEW; 07/25/2023 3:24 pm INDICATION: Signs/Symptoms:Post op cardiac surgery. COMPARISON: 07/25/2023 ACCESSION NUMBER(S): [id number] ORDERING CLINICIAN: DELILAH QUINTERO FINDINGS: The heart size appears normal. There is faint bilateral parenchymal infiltrate and/or atelectasis. There is a left-sided chest tube. The mediastinal drain is present. An endotracheal tube terminates above the belinda. A [place] catheter is present with tip in the region of the main pulmonary artery. There is a question of a nasogastric tube. The tip is not obvious. Sternal wires are present. COMPARISON OF FINDING: The surgery occurred interval since the prior exam Postop changes. Question of basilar infiltrate or atelectasis. A nasogastric tube may be present. The course and location of the tip is uncertain. MACRO: none Signed by: Janet Pate 07/25/2023 4:09 PM Dictation workstation: [id number] ECG 12 Lead Result Date: 07/25/2023 Normal sinus rhythm Inferior infarct (cited on or before 19-JUL-2023) Abnormal ECG When compared with ECG of 24-JUL-2023 12:44, Serial changes of Inferior infarct Present Assessment/Plan Principal Problem: Acute myocardial infarction due to left coronary artery occlusion (CMS/HCC) Active Problems: Hyperlipidemia 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 Presented to OSH c/o midsternal CP that woke him from sleep. Ruled in as NSTEMI. Underwent coronary angiogram revealing diffuse TVD. Pt transferred to [facility] for consideration of surgical revascularization. July 24 pt underwent CABGx4 wit ESTES-LAD, SVG-PDA-OM, SVG-Diag; Endoscopic vein harvest; intraoperative MARCUS. -Discussed with Dr. Peck -appreciate assistance of ICU colleagues -Remove Cordis and mac -Initiate diuresis with Lasix 20 mg IV x 1, further adjustments based on clinical response -Pleat electrolytes to maintain potassium greater than 4.0, magnesium greater than 2.0 -ASA and Statin daily. Will need Plavix prior to discharge d/t NSTEMI/ACS -Resume BB as hemodynamics allow -Scheduled Tylenol, Lidoderm patch, PRN oxycodone, and as needed tramadol for pain -Bowel regimen of Miralax and Colace -Continued cardiac diet, Protonix for GI prophylaxis. -SCDs, RUBIA hose, and heparin 5000 units every 8 hours for DVT prophylaxis -Pulmonary hygiene; encourage IS; wean supplemental oxygen for SPO2>90% -Increase activity as tolerated. OOB for all meals and ambulate TID. Therapy consulted -SW for DC planning -CBC, BMP, Mag, iCa, EKG, and CXR in AM HTN; HLD Lipid Panel: Chol 206, HDL 55.7, LDL 121, TRI 148. -Statin daily -resume BB as hemodynamics allow -appreciate assistance of Cardiology colleagues Anemia; thrombocytopenia Acute post operative anemia. POD #2: Hemoglobin 9.4, platelets 86,000, appear to be hemodilutional as significantly volume overloaded with LOS fluid balance of 11 L -Low suspicion for HIT -Diuresis as above -follow CBC I spent 45 minutes in the professional and overall care of this patient. CHRISTY Evans Social Work Note Per interdisciplinary rounds, attending MD and PT/'OT both state to anticipate appropriate discharge plan to home with HHC and not SNF appropriate. Placed phone call to pt's sister, Angelic. Left voicemail. Later rcvd call back from Angelic and discussed her concerns at length in addition to her Peewee. They express concerns about understanding pt's needs upon discharge so that they can support him. Suggested that they follow up with pt's RN and MD to have their questions about pt's follow-up care needs better answered. Confirmed that plan will be for [facility]. Updated TCC accordingly. DARELL Osorio Images from the original note were not included. [facility] Progress Note Rounding ANTONIO/Fire Hose Curer: CHRISTY Hahn, Dr. Heraclio Benitez Primary Fire Hose Curer: Dr Horton Date: 07/27/2023 Patient: Robert Smiley Date of : 1960 Admit Date: 07/19/2023 SUBJECTIVE: 07/27/23 Alert and oriented x 3. Postop day 2 from CABG. Up in chair. Minimal pain. Went to A-fib with RVR overnight. Started on amiodarone infusion. Converted this morning to sinus rhythm. Still seems euvolemic in regards to his weights. 07/26/23 Alert and oriented x 3. Postop day 1 from CABG. Remains on small amount of norepinephrine. Up in chair. Minimal pain. Seems to be on the dry side. 07/24/2023: Patient remained stable hemodynamically with sinus rhythm and no significant arrhythmias overnight. Is scheduled for CABG tomorrow 07/23/23: Patient remains in status quo, denies any chest pain or shortness of breath with ambulation. He is awaiting CABG on Tuesday and he continues to maintain sinus rhythm with occasional PVCs. 07/22/23 Patient is awake and alert and oriented x 3 he states that he is not having any chest pain I spoke to him at length he is well-informed of plan of care that we are going to do the CABG on Tuesday answered all of his questions Telemetry is normal sinus rhythm with a Ke lesional PVC 07/21/23 Patient is awake and alert and oriented x 3. States he had a little indigestion this morning spoke to him at length he denies any chest pain or shortness of breath Telemetry is normal sinus rhythm with occasional PVC EKG is normal sinus rhythm has ST depression in inferior 07/20/23 Patient is resting quietly spoke to him at length he discussed at length with CT surgery they are planning for CABG on Tuesday He denies chest pain or shortness of breath Telemetry is normal sinus rhythm with occasional PVCs EKG is normal sinus rhythm no acute change 07/19/23 Robert Smiley is a 62 y.o. male patient who is being at the request of Dr. Salgado for inpatient consultation of angina. He was admitted on 07/19/2023. Previous [facility] and [facility] records have been reviewed in detail. Patient with a history of CAD, hypertension dyslipidemia was transferred from [facility] for CABG evaluation. On Tuesday the patient developed chest pain that radiated down his left arm along with chest pain he went to [facility] they transferred him to [facility] for heart catheterization LAD 95% Circumflex 95% RCA 95 to 99% Patient states they put him on a heparin drip send and will be here for CABG consult. He states he does not have any chest pain, fever, chills, nausea, vomiting, PND, orthopnea, claudications at this present time. He states that he has had a couple stents in the past. /EKG is normal sinus rhythm has ST depression in inferior/ VITALS: Vitals: 07/27/23 0544 07/27/23 0600 07/27/23 0700 07/27/23 0800 BP: 92/54 84/51 92/50 BP Location: Right arm Patient Position: Sitting Pulse: (!) 122 76 76 Resp: Temp: TempSrc: SpO2: 100% 98% 95% Weight: 111 kg (244 lb 14.9 oz) Height: Intake/Output Summary (Last 24 hours) at 07/27/2023 0809 Last data filed at 07/27/2023 0530 Gross per 24 hour Intake 2835.71 ml Output 1805 ml Net 1030.71 ml Wt Readings from Last 4 Encounters: 07/27/23 111 kg (244 lb 14.9 oz) 07/18/23 108 kg (239 lb) CURRENT HOSPITAL MEDICATIONS: acetaminophen, 650 mg, oral, q4h aspirin, 81 mg, oral, Daily atorvastatin, 40 mg, oral, Nightly docusate sodium, 100 mg, oral, TID [Held by provider] heparin (porcine), 5,000 Units, subcutaneous, q8h insulin lispro, 0-15 Units, subcutaneous, Before meals & nightly lidocaine, 1 patch, transdermal, q24h metoprolol tartrate, 12.5 mg, oral, BID mupirocin, , Topical, BID polyethylene glycol, 17 g, oral, Daily vancomycin, 1,500 mg, intravenous, q12h amiodarone, 0.5-1 mg/min, Last Rate: 0.5 mg/min (07/27/23 0711) niCARdipine, 2.5-15 mg/hr Current Outpatient Medications Medication Instructions clopidogrel (PLAVIX) 75 mg, oral, Daily meloxicam (MOBIC) 7.5 mg, oral, Daily, Unsure if dose is correct
PHYSICAL EXAMINATION: GENERAL: Well developed, well nourished, in no acute distress. CHEST: Dressing CDI, chest tubes. NEURO/PSYCH: Alert and oriented times three with approppriate behavior and responses. NECK: Supple, no JVD, no bruit. LUNGS: Diminished. HEART: Rate and rhythm regular with no evident murmur, no gallop appreciated. EXTREMITIES: Warm with good color, no clubbing or cyanosis. There is no edema noted. PERIPHERAL VASCULAR: Pulses present and equally palpable; 2+ throughout. LAB DATA: CBC: Results from last 7 days Lab Units 07/27/2333907/26/23 05007/25/231918 WBC AUTO x10*3/uL 8.3 11.4* 13.0* RBC AUTO x10*6/uL 3.05* 3.26* 3.24* HEMOGLOBIN g/dL 9.4* 9.9* 10.0* HEMATOCRIT % 28.6* 29.7* 29.2* MCV fL 94 91 90 MCH pg 30.8 30.4 30.9 MCHC g/dL 32.9 33.3 34.2 RDW % 13.9 13.8 13.3 PLATELETS AUTO x10*3/uL 86* 160 161 MPV fL 11.6* -- -- CMP: Results from last 7 days Lab Units 07/27/2333907/26/23 05007/25/23191807/25/23 1455 07/25/23 05 SODIUM mmol/L 136 137 137 < > 137 POTASSIUM mmol/L 4.2 4.7 4.1 < > 4.1 CHLORIDE mmol/L 104 105 106 < > 105 CO2 mmol/L 25 26 24 < > 23 BUN mg/dL 12 14 15 < > 22 CREATININE mg/dL 0.98 1.13 1.11 < > 1.16 GLUCOSE mg/dL 116* 117* 199* < > 95 PROTEIN TOTAL g/dL -- -- -- -- 7.0 CALCIUM mg/dL 8.3* 8.1* 8.0* < > 9.1 BILIRUBIN TOTAL mg/dL -- -- -- -- 0.6 ALK PHOS U/L -- -- -- -- 70 AST U/L -- -- -- -- 54* ALT U/L -- -- -- -- 73* < > = values in this interval not displayed. BMP: Results from last 7 days Lab Units 07/27/2333907/26/2350307/25/231918 SODIUM mmol/L 136 137 137 POTASSIUM mmol/L 4.2 4.7 4.1 CHLORIDE mmol/L 104 105 106 CO2 mmol/L 25 26 24 BUN mg/dL 12 14 15 CREATININE mg/dL 0.98 1.13 1.11 CALCIUM mg/dL 8.3* 8.1* 8.0* GLUCOSE mg/dL 116* 117* 199* Magnesium: Results from last 7 days Lab Units 07/27/23 0340 07/26/23 0504 07/25/23 1919 MAGNESIUM mg/dL 2.24 2.10 2.39 Troponin: BNP: Lipid Panel: DIAGNOSTIC TESTING: ECG 12 Lead Result Date: 07/20/2023 Normal sinus rhythm Possible Inferior infarct (cited on or before 19-JUL-2023) Abnormal ECG When compared with ECG of 19-JUL-2023 07:06, No significant change was found Carotid duplex bilateral Result Date: 07/19/2023 Interpreted By: Hector Smith, STUDY: [facility] CAROTID ARTERY DUPLEX BILATERAL; 07/19/2023 2:38 pm INDICATION: Signs/Symptoms:pre-op CABG; r/o carotid stenosis. COMPARISON: None. ACCESSION NUMBER(S): [id number] ORDERING CLINICIAN: MARYANNE YOU TECHNIQUE: Vascular ultrasound of the extracranial carotid system was performed bilaterally. Griffith scale, color Doppler and spectral Doppler waveform analysis was performed. FINDINGS: RIGHT: On the right There is no evidence of atheromatous plaques in the common carotid arteries, visualized portions of the internal carotid arteries, and the proximal external carotid arteries. Doppler studies demonstrate normal flow pattern without evidence of turbulent flow.. The peak systolic velocities are as follows: RIGHT SIDE PEAK SYSTOLIC VELOCITY TABLE: CCA 116 cm/sec. ICA 58 cm/sec. ECA 105 cm/sec. The ratio of the peak systolic velocity of the right ICA/CCA is 0.5. RIGHT VERTEBRAL ARTERY: The right vertebral artery demonstrates proximal normal anterograde flow LEFT: On the left There is no evidence of atheromatous plaques in the common carotid arteries, visualized portions of the internal carotid arteries, and the proximal external carotid arteries. Doppler studies demonstrate normal flow pattern without evidence of turbulent flow.. The peak systolic velocities are as follows: LEFT SIDE PEAK SYSTOLIC VELOCITY TABLE: CCA 99 cm/sec. ICA 54 cm/sec. ECA 98 cm/sec. The ratio of the peak systolic velocity of the left ICA/CCA is 0.6. LEFT VERTEBRAL ARTERY: The left vertebral artery demonstrates proximal normal anterograde flow Normal flow pattern without evidence of hemodynamically relevant stenosis or atheromatous plaques in the visualized portions of the carotid circulation as described above. MACRO: None Signed by: Hector Smith 07/19/2023 3:43 PM Dictation workstation: [id number] XR chest 2 views Result Date: 07/19/2023 Interpreted By: Hector Smith, STUDY: XR CHEST 2 VIEWS; 07/19/2023 2:08 pm INDICATION: Signs/Symptoms:pre-op CABG. COMPARISON: None. ACCESSION NUMBER(S): [id number] ORDERING CLINICIAN: MARYANNE YOU FINDINGS: CARDIOMEDIASTINAL SILHOUETTE: Cardiomediastinal silhouette is normal in size and configuration. LUNGS: Mild left basilar atelectasis is present. No focal consolidation. No pleural effusion or pneumothorax. ABDOMEN: No remarkable upper abdominal findings. BONES: Multilevel predominantly anterior endplate spurring/partially bridging osteophytes are present in the thoracic spine. 1. Mild left basilar atelectasis. No focal consolidation. MACRO: None. Signed by: Hector Smith 07/19/2023 3:41 PM Dictation workstation: [id number] Transthoracic Echo (TTE) Complete Result Date: 07/19/2023 [place] [id number] TRANSTHORACIC ECHOCARDIOGRAM REPORT Patient Name: ROBERT SMILEY Reading Physician: [id number] Dev Ding MD, [facility] Study Date: 07/19/2023 Ordering Provider: [id number] EDUARDO FERRO MRN/PID: [id number] Fellow: Nurse: Mendoza Dowd RN Date of /Age: 5 1960 / 62 years Complaint Investigations Officer: Chloé Lyman RDCS Gender: M Additional Staff: Height: 172.72 cm Admit Date: 07/18/2023 Weight: 105.69 kg Admission Status: Inpatient - Routine BSA / BMI: 2.18 m2 / 35.43 Department Location: [place] [address] Echo Lab Blood Pressure: 112 /58 mmHg Study Type: TRANSTHORACIC ECHO (TTE) COMPLETE Diagnosis/ICD: Encounter for preprocedural cardiovascular examination-Z01.810 Indication: PRE-OP CABG CPT Codes: Echo Complete w Full Doppler-[id number] Patient History: Pertinent History: CAD, Hyperlipidemia and MA. Study Detail: The following Echo studies were performed: 2D, M-Mode, Doppler and color flow. Definity used as a contrast agent for endocardial border definition. Total contrast used for this procedure was 2 mL via IV push. The patient was awake. PHYSICIAN INTERPRETATION: Left Ventricle: Left ventricular systolic function is normal, with an estimated ejection fraction of 55-60%. There are no regional wall motion abnormalities. The left ventricular cavity size is normal. The left ventricular septal wall thickness is mildly increased. There is normal left ventricular posterior wall thickness. Spectral Doppler shows an impaired relaxation pattern of left ventricular diastolic filling. Left Atrium: The left atrium is normal in size. Left atrial volume index 18.5 mL/m2. Right Ventricle: The right ventricle is normal in size. There is normal right ventricular global systolic function. Normal right ventricular chamber size and function. Right Atrium: The right atrium is normal in size. Aortic Valve: The aortic valve was not well visualized. There is mild aortic valve cusp calcification. There is no evidence of aortic valve regurgitation. The peak instantaneous gradient of the aortic valve is 7.8 mmHg. The mean gradient of the aortic valve is 4.0 mmHg. Mitral Valve: The mitral valve is normal in structure. There is trace mitral valve regurgitation. Tricuspid Valve: The tricuspid valve is structurally normal. There is trace tricuspid regurgitation. The right ventricular systolic pressure is unable to be estimated. Trivial tricuspid regurgitation. Pulmonic Valve: The pulmonic valve is structurally normal. There is no indication of pulmonic valve regurgitation. Pericardium: There is a trivial pericardial effusion. Aorta: The aortic root is normal. Systemic Veins: The inferior vena cava appears to be of normal size. There is IVC inspiratory collapse greater than 50%. CONCLUSIONS: 1. Left ventricular systolic function is normal with a 55-60% estimated ejection fraction. 2. Spectral Doppler shows an impaired relaxation pattern of left ventricular diastolic filling. 3. Normal right ventricular chamber size and function. 4. Trivial tricuspid regurgitation. 5. No previous available for comparison. QUANTITATIVE DATA SUMMARY: 2D MEASUREMENTS: Normal Ranges: Ao Root d: 2.90 cm (2.0-3.7cm) LAs: 3.70 cm (2.7-4.0cm) IVSd: 1.20 cm (0.6-1.1cm) LVPWd: 0.93 cm (0.6-1.1cm) LVIDd: 3.80 cm (3.9-5.9cm) LVIDs: 2.60 cm LV Mass Index: 58.8 g/m2 LV % FS 31.6 % LA VOLUME: Normal Ranges: LA Vol A4C: 37.5 ml (22+/-6mL/m2) LA Vol A2C: 40.3 ml LA Vol BP: 41.3 ml LA Vol Index A4C: 17.2ml/m2 LA Vol Index A2C: 18.5 ml/m2 LA Vol Index BP: 19.0 ml/m2 LA Area A4C: 15.7 cm2 LA Area A2C: 15.3 cm2 LA Major [place] A4C: 5.6 cm LA Major [place] A2C: 4.9 cm LA Volume Index: 17.9 ml/m2 RA VOLUME BY A/L METHOD: Normal Ranges: RA Vol A4C: 33.3 ml (8.3-19.5ml) RA Vol Index A4C: 15.3 ml/m2 RA Area A4C: 13.7 cm2 RA Major [place] A4C: 4.8 cm AORTA MEASUREMENTS: Normal Ranges: Asc Ao, d: 3.10 cm (2.1-3.4cm) LV SYSTOLIC FUNCTION BY 2D PLANIMETRY (MOD): Normal Ranges: EF-A4C View: 58.9 % (>=55%) EF-A2C View: 54.9 % EF-Biplane: 58.6 % LV DIASTOLIC FUNCTION: Normal Ranges: MV Peak E: 0.85 m/s (0.7-1.2 m/s) MV Peak A: 0.80 m/s (0.42-0.7 m/s) E/A Ratio: 1.07 (1.0-2.2) MV e' 0.11 m/s (>8.0) MV lateral e' 0.11 m/s MV medial e' 0.09 m/s E/e' Ratio: 7.73 (<8.0) MITRAL VALVE: Normal Ranges: MV DT: 229 msec (150-240msec) AORTIC VALVE: Normal Ranges: AoV Vmax: 1.40 m/s (<=1.7m/s) AoV Peak P.8 mmHg (<20mmHg) AoV Mean P.0 mmHg (1.7-11.5mmHg) LVOT Max Gael: 1.20 m/s (<=1.1m/s) AoV VTI: 24.60 cm (18-25cm) LVOT VTI: 24.30 cm LVOT Diameter: 2.00 cm (1.8-2.4cm) AoV Area, VTI: 3.10 cm2 (2.5-5.5cm2) AoV Area,Vmax: 2.69 cm2 (2.5-4.5cm2) AoV Dimensionless Index: 0.99 RIGHT VENTRICLE: RV Basal 3.11 cm RV Mid 2.26 cm RV Major 7.5 cm TAPSE: 25.4 mm RV s' 0.14 m/s TRICUSPID VALVE/RVSP: Normal Ranges: IVC Diam: 1.65 cm PULMONIC VALVE: Normal Ranges: PV Accel Time: 77 msec (>120ms) PV Max Gael: 1.0 m/s (0.6-0.9m/s) PV Max P.7 mmHg [id number] Dev Ding MD, FACC Electronically signed on 07/19/2023 at 2:33:[address] chest wo IV contrast Result Date: 07/19/2023 Interpreted By: Hector Smith, STUDY: CT CHEST WO IV CONTRAST; 07/19/2023 1:48 pm INDICATION: Signs/Symptoms:pre-op CABG; please assess ascending aorta for atherosclerosis and size. COMPARISON: None. ACCESSION NUMBER(S): [id number] ORDERING CLINICIAN: MARYANNE YOU TECHNIQUE: Contiguous unenhanced axial images were obtained through the chest. Images were reformatted in axial, coronal, and sagittal planes. FINDINGS: LUNGS and AIRWAYS: Small bands of subsegmental atelectasis or scar are present in the left lower lobe anteriorly as well as the lingula. Mild dependent atelectasis present bilaterally. No focal consolidation. No pleural effusion or pneumothorax. MEDIASTINUM and LITO, LOWER NECK AND AXILLA: No mediastinal or hilar lymphadenopathy is seen. No axillary lymphadenopathy. HEART and VESSELS: There is no thoracic aortic aneurysm. Ascending thoracic aorta is uniform in caliber measuring approximately 3.1 x 3.1 cm in transverse and AP diameters. Small irregular calcifications are seen at the aortic root level. No additional calcification is seen in the ascending thoracic aorta. Small atherosclerotic calcification is seen in the distal aortic arch. Descending thoracic aorta is uniform in caliber measuring 2.4 cm in diameter. Coronary artery calcifications and/or stents are present. No pericardial effusion. Heart is not significantly enlarged. UPPER ABDOMEN: Gallbladder is not abnormally distended and contains mixed attenuation gallstone in the dependent portion toward the base. No pericholecystic inflammation is seen. No biliary dilation. CHEST WALL and OSSEOUS STRUCTURES: There is mild S-shaped scoliosis of the thoracic spine. Multilevel disc space narrowing and predominantly anterior endplate spurring/partially bridging osteophytes are most prominent in the mid-lower thoracic spine. 1. No thoracic aortic aneurysm. Ascending thoracic aorta measures 3.1 cm in diameter. 2. Irregular calcification at the aortic root level. No evidence of calcification in the ascending thoracic aorta. 3. Cholelithiasis. No pericholecystic inflammation. No biliary dilation. MACRO: None. Signed by: Hector Smith 07/19/2023 2:09 PM Dictation workstation: [id number] ECG 12 lead Result Date: 07/19/2023 Normal sinus rhythm Possible Inferior infarct , age undetermined Abnormal ECG No previous ECGs available Confirmed by Courtney Shrestha ([id number]) on 07/19/2023 7:31:32 AM XR chest 1 view Final Result 1. No significant interval change. MACRO: None. Signed by: Hector Smith 07/27/2023 8:05 AM Dictation workstation: [id number] XR chest 1 view Final Result No pneumothorax MACRO: None Signed by: Isaiah Cross 07/26/2023 3:01 PM Dictation workstation: [id number] XR chest 1 view Final Result 1. Low inspiratory volume. Bibasilar infiltrates and/or atelectasis, left greater than right, similar to prior. MACRO: None. Signed by: Hector Smith 07/26/2023 8:21 AM Dictation workstation: [id number] XR chest 1 view Final Result Postop changes. Question of basilar infiltrate or atelectasis. A nasogastric tube may be present. The course and location of the tip is uncertain. MACRO: none Signed by: Janet Pate 07/25/2023 4:09 PM Dictation workstation: [id number] XR chest 1 view Final Result 1. Interval [place]-Monae catheter placement tip of the proximal right pulmonary artery as discussed above. No pneumothorax. MACRO: None Signed by: Bjorn Sandoval 07/25/2023 10:38 AM Dictation workstation: [id number] Anesthesia Intraoperative Transesophageal Echocardiogram Final Result Carotid duplex bilateral Final Result Normal flow pattern without evidence of hemodynamically relevant stenosis or atheromatous plaques in the visualized portions of the carotid circulation as described above. MACRO: None Signed by: Hector Smith 07/19/2023 3:43 PM Dictation workstation: [id number] XR chest 2 views Final Result 1. Mild left basilar atelectasis. No focal consolidation. MACRO: None. Signed by: Hector Smith 07/19/2023 3:41 PM Dictation workstation: [id number] CT chest wo IV contrast Final Result 1. No thoracic aortic aneurysm.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 evalulation. Pt. underwent CABG x 4 on 07/25/[address] Peck. Hgb (07/25) 9.9 trending down. 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 Vital Signs: Heart Rate: (Pre amb 85, post amb 89) SpO2: (On 2L, Pre amb 94%, post amb 95%) Pain: Pain Assessment Pain Assessment: 0-10 Pain Score: 4 Pain Type: Acute pain, Surgical pain Pain Location: (Incision area) Objective Cognition: Overall Cognitive Status: Within Functional Limits (Flat affect.) Orientation Level: Oriented X4 Impulsive: (Impulsive with mobility.) Home Living: Home Living Comments: Pt. lives alone in a 1 level house with 5 SHADE wtih HR. Pt.'s sister lives next door. Bed/bath on 1st floor with tub shower with a grab bar but no seat. Laundry on 1st floor. Prior Function: Prior Function Comments: Pt. 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 Pt. was I wiht ADLs and IADLs SHIPPING CLERK CRATING. Pt. denied falls in last 3 months. [address] drove SHIPPING CLERK CRATING. ADL: Eating Assistance: (Setup) Grooming Assistance: (Min A for standing balance.) Bathing Assistance: Moderate UE Dressing Assistance: Minimal LE Dressing Assistance: Moderate Toileting Assistance with Device: Minimal Activity Tolerance: Endurance: Decreased tolerance for upright activites Bed Mobility/Transfers: Bed Mobility 1 Bed Mobility 1: Sitting to supine Level of Assistance 1: Moderate assistance Bed Mobility Comments 1: Assist with B/L LEs. Transfer 1 Technique 1: Stand to sit, Sit to stand Transfer Device 1: (Duncan walker) Transfer Level of Assistance 1: Contact guard Trials/Comments 1: Cues for adherence to MITT precautions during sit <> stand. Functional Mobility: Functional Mobility Functional Mobility Performed: Yes Functional Mobility 1 Comments 1: Patient completed functional mobility throughout the room/hallway with the Duncan walker at min A level. Patient requires cues to slow down pace d/t being impulsive with mobility. Standing Balance: Dynamic Standing Balance Dynamic Standing-Comments: Fair Strength: Strength Comments: B/L UE MMT not assessed d/t recent surgery/MITT precautions. Extremities: RUE RUE : Within Functional Limits (Observed during functional tasks.) and LUE LUE: Within Functional Limits (Observed during functional tasks.) Outcome Measures:[facility] Daily Activity Putting on and taking off regular lower body clothing: A lot Bathing (including washing, rinsing, drying): A lot Putting on and taking off regular upper body clothing: A little Toileting, which includes using toilet, bedpan or urinal: A little Taking care of personal grooming such as brushing teeth: A little Eating Meals: A little Daily Activity - Total Score: 16 Education Documentation Precautions, taught by Whit Owusu OT at 07/26/2023 2:32 PM. Learner: Patient Readiness: Acceptance Method: Explanation, Handout Response: Needs Reinforcement Comment: Educated on MITT precautions. EDUCATION: Education Individual(s) Educated: Patient Education Provided: POC discussed and agreed upon, Risk and benefits of OT discussed with patient or other, Fall precautons Patient Response to Education: Patient/Caregiver Verbalized Understanding of Information Goals: Encounter Problems Encounter Problems (Active) OT Goals Patient will complete functional mobility at a mod I level. (Progressing) Start: 07/26/23 Expected End: 08/09/23 Patient will complete functional transfers at a mod I level. (Progressing) Start: 07/26/23 Expected End: 08/09/23 Patient will complete toileting at a mod I level. (Progressing) Start: 07/26/23 Expected End: 08/09/23 Patient will complete lower body dressing at a mod I level. (Progressing) Start: 07/26/23 Expected End: 08/09/23 Patient will demonstrate fair + dynamic standing balance during functional tasks. (Progressing) Start: 07/26/23 Expected End: 08/09/23 Patient will tolerate standing greater than 4 minutes during functional tasks. (Progressing) Start: 07/26/23 Expected End: 08/09/23 Physical Therapy Physical Therapy Evaluation Patient Name: Robert Smiley Today's Date: 07/26/2023 Time Calculation Start Time: 1107 Stop Time: 1123 Time Calculation (min): 16 min Assessment/Plan PT Assessment PT Assessment Results: Decreased endurance, Impaired balance, Decreased mobility, Impaired judgement Rehab Prognosis: Good Evaluation/Treatment Tolerance: Patient limited by fatigue Medical Staff Made Aware: Yes Strengths: Support of Caregivers, Living arrangement secure, Housing layout, Attitude of self Barriers to Participation: Comorbidities End of Session Communication: Bedside nurse End of Session Patient Position: Bed, 2 rail up, Alarm off, caregiver present IP OR SWING BED PT PLAN Inpatient or Swing Bed: Inpatient PT Plan Treatment/Interventions: Bed mobility, Transfer training, Gait training, Stair training, Strengthening, Endurance training, Therapeutic exercise PT Plan: Skilled PT PT Frequency: 4 times per week PT Discharge Recommendations: Low intensity level of continued care PT Recommended Transfer Status: Assist x1, Assistive device Physical Therapy eval completed per MD requisition. P.T. recommendations as outlined above. Recommend D/C from acute care when medically appropriate as deemed by medical staff. Subjective General Visit Information: General Reason for Referral: impaired mobility, CABG x 4 Referred By: Huey Quintero CNP (PTOT 07/24) Past Medical History Relevant to Rehab: includes: HTN, HLD, MA, CAD, stent, appy, obesity, gout, Asberger's syndrome Family/Caregiver Present: No Prior to Session Communication: Bedside nurse Patient Position Received: Up in chair, Alarm off, not on at start of session Preferred Learning Style: auditory, verbal General Comment: Pt. is a 62yo who presented to [facility] with c/o chest pain, Troponin 600 then 4000 with LAD 90% occluded. (+) NSTEMI. Pt. was transferred to [facility] [place] on 07/19/2023 for a CABG evalulation. Pt. underwent CABG x 4 on 07/25/[address] Peck.Hgb (07/25) 9.9 trending down Home Living: Home Living Home Living Comments: Pt. lives alone in a 1 level house with 5 SHADE wtih HR. Pt.'s sister lives next door. Bed/bath on 1st floor with tub shower with a grab bar but no seat. Laundry on 1st floor. Prior Level of Function: Prior Function Per Pt/Caregiver Report Prior Function Comments: Pt. 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 Pt. was I wiht ADLs and IADLs SHIPPING CLERK CRATING. Pt. denied falls in last 3 months. Pt. drove SHIPPING CLERK CRATING. Precautions: Precautions Medical Precautions: (Activity order: Ambulate) Post-Surgical Precautions: Move in the Tube Precautions Comment: Per EMR: High fall risk Vital Signs: Vital Signs Heart Rate: (Pre amb 85, post amb 89) SpO2: (On 2L, Pre amb 94%, post amb 95%) Objective Pain: Pain Assessment Pain Assessment: 0-10 Pain Score: 4 Pain Type: Acute pain, Surgical pain Pain Location: (Chest tube site) Pain Interventions: Repositioned Cognition: Cognition Overall Cognitive Status: Within Functional Limits Orientation Level: Oriented X4 Insight: Mild General Assessments: General Observation General Observation: Two chest tubes, tele, Mac Activity Tolerance Endurance: Decreased tolerance for upright activites Dynamic Sitting Balance Dynamic Sitting-Comments: Good static and dynamic sitting balance Dynamic Standing Balance Dynamic Standing-Comments: Fair+ static and dynamic standing balance Functional Assessments: Bed Mobility Bed Mobility: Yes Bed Mobility 1 Bed Mobility 1: Sitting to supine Level of Assistance 1: Moderate assistance (x2) Bed Mobility Comments 1: A to lift B LEs onto bed and t control descent/placement of trunk via logroll Transfers Transfer: Yes Transfer 1 Technique 1: Sit to stand, Stand to sit Transfer Device 1: (Duncan) Transfer Level of Assistance 1: Contact guard Trials/Comments 1: VC's for MITT precautions and to slow down Transfers 2 Technique 2: Stand pivot Transfer Device 2: (Duncan) Transfer Level of Assistance 2: Minimum assistance Trials/Comments 2: A for balance safety. VC's to slow down Ambulation/Gait Training Ambulation/Gait Training Performed: Yes Ambulation/Gait Training 1 Surface 1: Level tile Device 1: (Duncan) Assistance 1: Minimum assistance Quality of Gait 1: (slow, reciprocal gait with shortend step lengths.) Comments/Distance (ft) 1: 50'; A for balance, safety, VC's for directions and to slow down Stairs Stairs: No Extremity/Trunk Assessments: RLE RLE : Within Functional Limits LLE LLE : Within Functional Limits Outcome Measures: [facility] Basic Mobility Turning from your back to your side while in a flat bed without using bedrails: A lot Moving from lying on your back to sitting on the side of a flat bed without using bedrails: A lot Moving to and from bed to chair (including a wheelchair): A little Standing up from a chair using your arms (e.g. wheelchair or bedside chair): A little To walk in hospital room: A little Climbing 3-5 steps with railing: Total Basic Mobility - Total Score: 14 Goals: Encounter Problems Encounter Problems (Active) PT Problem Pt. will transfer supine/sit with MOD I (Progressing) Start: 07/26/23 Expected End: 08/09/23 Pt. will transfer sit/stand with safest and least restrictive assistive device with MOD I (Progressing) Start: 07/26/23 Expected End: 08/09/23 Pt. will complete stand pivot transfers with safest and least restrictive assistive device with MOD I (Progressing) Start: 07/26/23 Expected End: 08/09/23 Pt.will ambulate 200' with safest and least restrictive assistive device with MOD I (Progressing) Start: 07/26/23 Expected End: 08/09/23 Pt. will amb up/down 5 steps with HR and cane with CGA (Not Progressing) Start: 07/26/23 Expected End: 08/09/23 Pt. will perform 2 x 15 B LE AROM exercises (Not Progressing) Start: 07/26/23 Expected End: 08/09/23 Education Documentation Precautions, taught by Ambrose Simpson PT at 07/26/2023 12:32 PM. Learner: Patient Readiness: Acceptance Method: Explanation Response: Verbalizes Understanding, Needs Reinforcement Comment: Role of PT, transfers, amb, safety, PT POC, MITT precautions Mobility Training, taught by Ambrose Simpson PT at 07/26/2023 12:32 PM. Learner: Patient Readiness: Acceptance Method: Explanation Response: Verbalizes Understanding, Needs Reinforcement Comment: Role of PT, transfers, amb, safety, PT POC, MITT precautions Robert Smiley is a 62 y.o. male on day 7 of admission presenting with Acute myocardial infarction due to left coronary artery occlusion (CMS/HCC). Subjective Robert Smiley is a 62 y.o. male with PMHx of HTN, HLD, CAD s/p PCI (2017), and life time non-smoker who presented to OSH Tuesday morning c/o midsternal chest pain that radiated down his arms and woke him from sleep. He was transported via EMS; given SL nitroglycerine x2 en route with resolution of symptoms. Per ED note, EKG showed NSR with t-wave inversion in inferior leads. Troponin peaked at 4598. Pt was given full strength Aspirin, started on Heparin drip, and admitted to telemetry. The following day he underwent coronary angiogram revealing diffuse triple vessel disease and was transferred to [facility] for consideration of CABG. He remained inpatient while awaiting surgical revascularization. Pt remained hemodynamically stable and there were no acute events during pre-operative period. On July 24 patient underwent CABG x4 with ESTES-LAD, SVG-PDA-OM, SVG-Diag; Endoscopic vein harvest; intraoperative MARCUS. CPB 148 minutes; XC 135 minutes; EBL 250mL. Pt tolerated the procedure well and easily weaned from cardiopulmonary bypass. He arrived to SICU intubated and sedated on NEPI drip. He was successfully weaned from ventilator and extubated to nasal canula a few hours later. POD#1: Pt is currently afebrile but had Tmax of 38.3 @ 0400; suspect post operative stress response as no overt signs of infection noted. Maintaining sinus rhythm. Low normal BP on tapering doses of Levophed. CI consistently above 3. CVP low (3). SVR 920. Ok to remove swan. Continue to wean Levophed for MAP>65. Re-evaluate for beta blockade resumption once off Levophed. Pt is maintaining adequate SpO2 on 3L NC; wean as able for SpO2>90%. Chest tubes with tapering serosanguinous output; plan to remove this afternoon if output<30 mL/h. CXR showing stable bibasilar atelectasis. Pt is tolerating CL without nausea but does not want to advance further at this time. Urine output tapered this morning but improved with Albumin bolus. There were no acute overnight events. Objective Physical Exam Vitals and nursing note reviewed. Constitutional: General: He is not in acute distress. Appearance: Normal appearance. He is obese. HENT: Head: Normocephalic and atraumatic. Nose: Nose normal. Mouth/Throat: Mouth: Mucous membranes are dry. Pharynx: Oropharynx is clear. Eyes: Extraocular Movements: Extraocular movements intact. Pupils: Pupils are equal, round, and reactive to light. Neck: Comments: RIJ swan and cordis; swan to be removed Cardiovascular: Rate and Rhythm: Normal rate and regular rhythm. Pulses: Normal pulses. Heart sounds: No friction rub. Comments: Ventricular epicardial wires intact; has not required pacing; may insulate Pulmonary: Comments: Inspiratory volume limited by pain. Diminished lung sounds bilaterally (L>R) with RUCHI rhonchi that cleared with cough Mediastinal and L pleural chest tube with tapering serosanguinous output. Abdominal: Comments: Protuberant but soft. Nondistended. Nontender. Hypoactive BS. Genitourinary: Comments: Mac with straw/kareen colored urine; output improved s/p Albumin Musculoskeletal: General: Normal range of motion. Cervical back: Normal range of motion. Comments: Generalized post op weakness. Trace bilateral upper extremity edema primarily in hands Trivial lower extremity edema. Skin: General: Skin is warm and dry. Neurological: General: No focal deficit present. Mental Status: He is alert and oriented to person, place, and time. Mental status is at baseline. Psychiatric: Mood and Affect: Mood normal. Behavior: Behavior normal. Last Recorded Vitals Blood pressure (!) 85/49, pulse 84, temperature 36.6 C (97.9 F), temperature source Temporal, resp. rate 22, height 1.727 m (5' 8 ), weight 108 kg (238 lb 8.6 oz), SpO2 100 %. Intake/Output last 3 Shifts: I/O last 3 completed shifts: In: 7252.4 (67 mL/kg) [P.O.:120; I.V.:5182.4 (47.9 mL/kg); Blood:1450; IV Piggyback:500] Out: 3085 (28.5 mL/kg) [Urine:2680 (0.7 mL/kg/hr); Chest Tube:405] Weight: 108.2 kg Relevant Results Scheduled medications acetaminophen, 650 mg, oral, q4h aspirin, 81 mg, oral, Daily atorvastatin, 40 mg, oral, Nightly docusate sodium, 100 mg, oral, TID [Held by provider] heparin (porcine), 5,000 Units, subcutaneous, q8h insulin lispro, 0-15 Units, subcutaneous, Before meals & nightly ipratropium-albuteroL, 3 mL, nebulization, TID lidocaine, 1 patch, transdermal, q24h mupirocin, , Topical, BID pantoprazole, 40 mg, oral, Daily before breakfast polyethylene glycol, 17 g, oral, Daily vancomycin, 1,500 mg, intravenous, q12h Continuous medications lactated Ringer's, 50 mL/hr, Last Rate: 50 mL/hr (07/25/23 0800) niCARdipine, 2.5-15 mg/hr norepinephrine, 0-1 mcg/kg/min, Last Rate: 0.01 mcg/kg/min (07/26/23 1100) PRN medications PRN medications: acetaminophen OR [DISCONTINUED] acetaminophen OR [DISCONTINUED] acetaminophen, alum-mag hydroxide-simeth, bisacodyl, calcium chloride, calcium chloride, dextrose OR glucagon, HYDROmorphone, ipratropium-albuteroL, magnesium sulfate, magnesium sulfate, melatonin, metoclopramide OR metoclopramide, naloxone, niCARdipine, oxyCODONE, oxygen, potassium chloride, potassium chloride CR, potassium chloride CR Results for orders placed or performed during the hospital encounter of 07/19/23 (from the past 24 hour(s)) Blood Gas Arterial Full Panel Unsolicited Result Value Ref Range POCT pH, Arterial 7.36 (L) 7.38 - 7.42 pH POCT pCO2, Arterial 44 (H) 38 - 42 mm Hg POCT pO2, Arterial 312 (H) 85 - 95 mm Hg POCT SO2, Arterial 100 94 - 100 % POCT Oxy Hemoglobin, Arterial 97.6 94.0 - 98.0 % POCT Hematocrit Calculated, Arterial 34.0 (L) 41.0 - 52.0 % POCT Sodium, Arterial 132 (L) 136 - 145 mmol/L POCT Potassium, Arterial 5.4 (H) 3.5 - 5.3 mmol/L POCT Chloride, Arterial 104 98 - 107 mmol/L POCT Ionized Calcium, Arterial 1.05 (L) 1.10 - 1.33 mmol/L POCT Glucose, Arterial 142 (H) 74 - 99 mg/dL POCT Lactate, Arterial 1.8 0.4 - 2.0 mmol/L POCT Base Excess, Arterial -0.7 -2.0 - 3.0 mmol/L POCT HCO3 Calculated, Arterial 24.9 22.0 - 26.0 mmol/L POCT Hemoglobin, Arterial 11.2 (L) 13.5 - 17.5 g/dL POCT Anion Gap, Arterial 9 (L) 10 - 25 mmo/L Patient Temperature FiO2 80 % Blood Gas Arterial Full Panel Unsolicited Result Value Ref Range POCT pH, Arterial 7.34 (L) 7.38 - 7.42 pH POCT pCO2, Arterial 44 (H) 38 - 42 mm Hg POCT pO2, Arterial 333 (H) 85 - 95 mm Hg POCT SO2, Arterial 100 94 - 100 % POCT Oxy Hemoglobin, Arterial 97.6 94.0 - 98.0 % POCT Hematocrit Calculated, Arterial 34.0 (L) 41.0 - 52.0 % POCT Sodium, Arterial 133 (L) 136 - 145 mmol/L POCT Potassium, Arterial 5.4 (H) 3.5 - 5.3 mmol/L POCT Chloride, Arterial 104 98 - 107 mmol/L POCT Ionized Calcium, Arterial 1.10 1.10 - 1.33 mmol/L POCT Glucose, Arterial 137 (H) 74 - 99 mg/dL POCT Lactate, Arterial 1.8 0.4 - 2.0 mmol/L POCT Base Excess, Arterial -2.1 (L) -2.0 - 3.0 mmol/L POCT HCO3 Calculated, Arterial 23.7 22.0 - 26.0 mmol/L POCT Hemoglobin, Arterial 11.3 (L) 13.5 - 17.5 g/dL POCT Anion Gap, Arterial 11 10 - 25 mmo/L Patient Temperature FiO2 90 % Blood Gas Arterial Full Panel Unsolicited Result Value Ref Range POCT pH, Arterial 7.44 (H) 7.38 - 7.42 pH POCT pCO2, Arterial 39 38 - 42 mm Hg POCT pO2, Arterial 395 (H) 85 - 95 mm Hg POCT SO2, Arterial POCT Oxy Hemoglobin, Arterial POCT Hematocrit Calculated, Arterial POCT Sodium, Arterial 135 (L) 136 - 145 mmol/L POCT Potassium, Arterial 4.8 3.5 - 5.3 mmol/L POCT Chloride, Arterial 103 98 - 107 mmol/L POCT Ionized Calcium, Arterial 1.05 (L) 1.10 - 1.33 mmol/L POCT Glucose, Arterial 128 (H) 74 - 99 mg/dL POCT Lactate, Arterial 1.8 0.4 - 2.0 mmol/L POCT Base Excess, Arterial 2.3 -2.0 - 3.0 mmol/L POCT HCO3 Calculated, Arterial 26.5 (H) 22.0 - 26.0 mmol/L POCT Hemoglobin, Arterial POCT Anion Gap, Arterial 10 10 - 25 mmo/L Patient Temperature Blood Gas Arterial Full Panel Unsolicited Result Value Ref Range POCT pH, Arterial 7.36 (L) 7.38 - 7.42 pH POCT pCO2, Arterial 45 (H) 38 - 42 mm Hg POCT pO2, Arterial 345 (H) 85 - 95 mm Hg POCT SO2, Arterial 100 94 - 100 % POCT Oxy Hemoglobin, Arterial 97.5 94.0 - 98.0 % POCT Hematocrit Calculated, Arterial 32.0 (L) 41.0 - 52.0 % POCT Sodium, Arterial 135 (L) 136 - 145 mmol/L POCT Potassium, Arterial 4.3 3.5 - 5.3 mmol/L POCT Chloride, Arterial 106 98 - 107 mmol/L POCT Ionized Calcium, Arterial 1.34 (H) 1.10 - 1.33 mmol/L POCT Glucose, Arterial 108 (H) 74 - 99 mg/dL POCT Lactate, Arterial 2.0 0.4 - 2.0 mmol/L POCT Base Excess, Arterial -0.3 -2.0 - 3.0 mmol/L POCT HCO3 Calculated, Arterial 25.4 22.0 - 26.0 mmol/L POCT Hemoglobin, Arterial 10.8 (L) 13.5 - 17.5 g/dL POCT Anion Gap, Arterial 8 (L) 10 - 25 mmo/L Patient Temperature POCT GLUCOSE Result Value Ref Range POCT Glucose 108 (H) 74 - 99 mg/dL Blood gas arterial Result Value Ref Range POCT pH, Arterial 7.37 (L) 7.38 - 7.42 pH POCT pCO2, Arterial 45 (H) 38 - 42 mm Hg POCT pO2, Arterial 182 (H) 85 - 95 mm Hg POCT SO2, Arterial 100 94 - 100 % POCT Oxy Hemoglobin, Arterial 98.2 (H) 94.0 - 98.0 % POCT Base Excess, Arterial 0.3 -2.0 - 3.0 mmol/L POCT HCO3 Calculated, Arterial 26.0 22.0 - 26.0 mmol/L Patient Temperature FiO2 60 % Ventilator Mode A/C Ventilator Rate 12 bpm Tidal Volume 500 mL Peep CHM2O 5.0 cm H2O Site of Arterial Puncture Arterial Line Calcium, Ionized Result Value Ref Range POCT Calcium, Ionized 1.18 1.1 - 1.33 mmol/L Magnesium Result Value Ref Range Magnesium 2.94 (H) 1.60 - 2.40 mg/dL Coagulation Screen Result Value Ref Range Protime 13.8 (H) 9.8 - 12.8 seconds INR 1.2 (H) 0.9 - 1.1 aPTT 32 27 - 38 seconds Fibrinogen Result Value Ref Range Fibrinogen 313 200 - 400 mg/dL CBC Result Value Ref Range WBC 17.4 (H) 4.4 - 11.3 x10*3/uL nRBC 0.0 0.0 - 0.0 /100 WBCs RBC 4.08 (L) 4.50 - 5.90 x10*6/uL Hemoglobin 12.4 (L) 13.5 - 17.5 g/dL Hematocrit 36.4 (L) 41.0 - 52.0 % MCV 89 80 - 100 fL MCH 30.4 26.0 - 34.0 pg MCHC 34.1 32.0 - 36.0 g/dL RDW 13.2 11.5 - 14.5 % Platelets 187 150 - 450 x10*3/uL Renal Function Panel Result Value Ref Range Glucose 104 (H) 74 - 99 mg/dL Sodium 139 136 - 145 mmol/L Potassium 4.7 3.5 - 5.3 mmol/L Chloride 108 (H) 98 - 107 mmol/L Bicarbonate 26 21 - 32 mmol/L Anion Gap 10 10 - 20 mmol/L Urea Nitrogen 16 6 - 23 mg/dL Creatinine 1.04 0.50 - 1.30 mg/dL eGFR 82 >60 mL/min/1.73m*2 Calcium 8.4 (L) 8.6 - 10.3 mg/dL Phosphorus 3.6 2.5 - 4.9 mg/dL Albumin 3.3 (L) 3.4 - 5.0 g/dL ECG 12 Lead Result Value Ref Range Ventricular Rate 77 BPM Atrial Rate 77 BPM OH Interval 168 ms QRS Duration 90 ms QT Interval 370 ms QTC Calculation(Bazett) 418 ms P [place] 49 degrees R [place] 26 degrees T [place] -24 degrees QRS Count 12 beats Q Onset 217 ms P Onset 133 ms P Offset 187 ms T Offset 402 ms QTC Frederic[place] 402 ms POCT GLUCOSE Result Value Ref Range POCT Glucose 106 (H) 74 - 99 mg/dL Lactate Result Value Ref Range Lactate 1.7 0.4 - 2.0 mmol/L Magnesium Result Value Ref Range Magnesium 2.39 1.60 - 2.40 mg/dL Renal Function Panel Result Value Ref Range Glucose 199 (H) 74 - 99 mg/dL Sodium 137 136 - 145 mmol/L Potassium 4.1 3.5 - 5.3 mmol/L Chloride 106 98 - 107 mmol/L Bicarbonate 24 21 - 32 mmol/L Anion Gap 11 10 - 20 mmol/L Urea Nitrogen 15 6 - 23 mg/dL Creatinine 1.11 0.50 - 1.30 mg/dL eGFR 76 >60 mL/min/1.73m*2 Calcium 8.0 (L) 8.6 - 10.3 mg/dL Phosphorus 2.6 2.5 - 4.9 mg/dL Albumin 3.7 3.4 - 5.0 g/dL CBC Result Value Ref Range WBC 13.0 (H) 4.4 - 11.3 x10*3/uL nRBC 0.0 0.0 - 0.0 /100 WBCs RBC 3.24 (L) 4.50 - 5.90 x10*6/uL Hemoglobin 10.0 (L) 13.5 - 17.5 g/dL Hematocrit 29.2 (L) 41.0 - 52.0 % MCV 90 80 - 100 fL MCH 30.9 26.0 - 34.0 pg MCHC 34.2 32.0 - 36.0 g/dL RDW 13.3 11.5 - 14.5 % Platelets 161 150 - 450 x10*3/uL Lactate Result Value Ref Range Lactate 1.6 0.4 - 2.0 mmol/L Calcium, Ionized Result Value Ref Range POCT Calcium, Ionized 1.11 1.1 - 1.33 mmol/L Blood Gas Arterial Full Panel Result Value Ref Range POCT pH, Arterial 7.42 7.38 - 7.42 pH POCT pCO2, Arterial 41 38 - 42 mm Hg POCT pO2, Arterial 131 (H) 85 - 95 mm Hg POCT SO2, Arterial 99 94 - 100 % POCT Oxy Hemoglobin, Arterial 96.6 94.0 - 98.0 % POCT Hematocrit Calculated, Arterial 35.0 (L) 41.0 - 52.0 % POCT Sodium, Arterial 134 (L) 136 - 145 mmol/L POCT Potassium, Arterial 4.1 3.5 - 5.3 mmol/L POCT Chloride, Arterial 105 98 - 107 mmol/L POCT Ionized Calcium, Arterial 1.15 1.10 - 1.33 mmol/L POCT Glucose, Arterial 202 (H) 74 - 99 mg/dL POCT Lactate, Arterial 1.6 0.4 - 2.0 mmol/L POCT Base Excess, Arterial 1.9 -2.0 - 3.0 mmol/L POCT HCO3 Calculated, Arterial 26.6 (H) 22.0 - 26.0 mmol/L POCT Hemoglobin, Arterial 11.5 (L) 13.5 - 17.5 g/dL POCT Anion Gap, Arterial 7 (L) 10 - 25 mmo/L Patient Temperature FiO2 28 % POCT GLUCOSE Result Value Ref Range POCT Glucose 181 (H) 74 - 99 mg/dL POCT GLUCOSE Result Value Ref Range POCT Glucose 123 (H) 74 - 99 mg/dL POCT GLUCOSE Result Value Ref Range POCT Glucose 118 (H) 74 - 99 mg/dL CBC and Auto Differential Result Value Ref Range WBC 11.4 (H) 4.4 - 11.3 x10*3/uL nRBC 0.0 0.0 - 0.0 /100 WBCs RBC 3.26 (L) 4.50 - 5.90 x10*6/uL Hemoglobin 9.9 (L) 13.5 - 17.5 g/dL Hematocrit 29.7 (L) 41.0 - 52.0 % MCV 91 80 - 100 fL MCH 30.4 26.0 - 34.0 pg MCHC 33.3 32.0 - 36.0 g/dL RDW 13.8 11.5 - 14.5 % Platelets 160 150 - 450 x10*3/uL Neutrophils % 72.9 40.0 - 80.0 % Immature Granulocytes %, Automated 0.6 0.0 - 0.9 % Lymphocytes % 15.4 13.0 - 44.0 % Monocytes % 10.7 2.0 - 10.0 % Eosinophils % 0.1 0.0 - 6.0 % Basophils % 0.3 0.0 - 2.0 % Neutrophils Absolute 8.27 (H) 1.20 - 7.70 x10*3/uL Immature Granulocytes Absolute, Automated 0.07 0.00 - 0.70 x10*3/uL Lymphocytes Absolute 1.75 1.20 - 4.80 x10*3/uL Monocytes Absolute 1.22 (H) 0.10 - 1.00 x10*3/uL Eosinophils Absolute 0.01 0.00 - 0.70 x10*3/uL Basophils Absolute 0.03 0.00 - 0.10 x10*3/uL Renal function panel Result Value Ref Range Glucose 117 (H) 74 - 99 mg/dL Sodium 137 136 - 145 mmol/L Potassium 4.7 3.5 - 5.3 mmol/L Chloride 105 98 - 107 mmol/L Bicarbonate 26 21 - 32 mmol/L Anion Gap 11 10 - 20 mmol/L Urea Nitrogen 14 6 - 23 mg/dL Creatinine 1.13 0.50 - 1.30 mg/dL eGFR 74 >60 mL/min/1.73m*2 Calcium 8.1 (L) 8.6 - 10.3 mg/dL Phosphorus 3.0 2.5 - 4.9 mg/dL Albumin 3.6 3.4 - 5.0 g/dL Magnesium Result Value Ref Range Magnesium 2.10 1.60 - 2.40 mg/dL Calcium, ionized Result Value Ref Range POCT Calcium, Ionized 1.08 (L) 1.1 - 1.33 mmol/L ECG 12 Lead Result Value Ref Range Ventricular Rate 88 BPM Atrial Rate 88 BPM OH Interval 142 ms QRS Duration 70 ms QT Interval 334 ms QTC Calculation(Bazett) 404 ms P [place] 12 degrees R [place] 4 degrees T [place] -16 degrees QRS Count 15 beats Q Onset 226 ms P Onset 155 ms P Offset 208 ms T Offset 393 ms QTC Fredericia 379 ms POCT GLUCOSE Result Value Ref Range POCT Glucose 143 (H) 74 - 99 mg/dL XR chest 1 view Result Date: 07/26/2023 Interpreted By: Hector Smith, STUDY: XR CHEST 1 VIEW; 07/26/2023 5:34 am INDICATION: Signs/Symptoms:Post op cardiac surgery. COMPARISON: 07/25/2023. ACCESSION NUMBER(S): [id number] ORDERING CLINICIAN: JOANNA CONROY FINDINGS: CARDIOMEDIASTINAL SILHOUETTE: Endotracheal tube and NG tube are no longer seen. [place]-Monae catheter from right jugular approach remains in place with tip projecting near the left hilar region at the main pulmonary artery level. Cephalad directed probable mediastinal drain remains in place. Mild cardiomegaly, aortic prominence and postoperative changes of the mediastinum are similar to prior. LUNGS: Left basilar chest tube is stable in position. Inspiratory volume is low. Bibasilar infiltrates and or atelectasis, [id number]-[id number], is similar to prior. No definite pleural effusion. No appreciable pneumothorax. ABDOMEN: No remarkable upper abdominal findings. BONES: Bones are stable including multilevel endplate spurring of the spine and partially visualized degenerative changes of the shoulders. 1. Low inspiratory volume. Bibasilar infiltrates and/or atelectasis, left greater than right, similar to prior. MACRO: None. Signed by: Hector Smith 07/26/2023 8:21 AM Dictation workstation: [id number] ECG 12 Lead Result Date: 07/26/2023 Normal sinus rhythm Low voltage QRS Inferior infarct (cited on or before 19-JUL-2023) Abnormal ECG When compared with ECG of 25-JUL-2023 15:06, (unconfirmed) Serial changes of evolving Inferior infarct Present XR chest 1 view Result Date: 07/25/2023 Interpreted By: Janet Pate, STUDY: XR CHEST 1 VIEW; 07/25/2023 3:24 pm INDICATION: Signs/Symptoms:Post op cardiac surgery. COMPARISON: 07/25/2023 ACCESSION NUMBER(S): [id number] ORDERING CLINICIAN: DELILAH QUINTERO FINDINGS: The heart size appears normal. There is faint bilateral parenchymal infiltrate and/or atelectasis. There is a left-sided chest tube. The mediastinal drain is present. An endotracheal tube terminates above the belinda. A [place]-Monae catheter is present with tip in the region of the main pulmonary artery. There is a question of a nasogastric tube. The tip is not obvious. Sternal wires are present. COMPARISON OF FINDING: The surgery occurred interval since the prior exam Postop changes. Question of basilar infiltrate or atelectasis. A nasogastric tube may be present. The course and location of the tip is uncertain. MACRO: none Signed by: Janet Pate 07/25/2023 4:09 PM Dictation workstation: [id number] Anesthesia Intraoperative Transesophageal Echocardiogram Result Date: 07/25/2023 [place] [id number] TRANSESOPHAGEAL ECHOCARDIOGRAM REPORT Patient Name: ROBERT Armando Physician: [id number] Sana Tripp MD Study Date: 07/25/2023 Ordering Provider: [id number] SCAR PECK MRN/PID: [id number] Fellow: Nurse: Date of /Age: 5 1960 / 62 years Complaint Investigations Officer: Yadi AYALA Gender: M Additional Staff: Height: 172.72 cm Admit Date: 07/18/2023 Weight: 102.97 kg Admission Status: Inpatient - Routine BSA / BMI: 2.16 m2 / 34.52 kg/m2 Department Location: [facility] [place] Blood Pressure: 122 /64 mmHg Study Type: ANESTHESIA INTRAOPERATIVE MARCUS Diagnosis/ICD: Atherosclerotic heart disease of [place] coronary artery with other forms of angina pectoris-I25.118 Indication: CAD, PRE/POST CABG CPT Codes: MARCUS Complete-85297 Study Detail: The following Echo studies were performed: 2D, M-Mode, Doppler and color flow. The patient was under general anesthesia. PHYSICIAN INTERPRETATION: MARCUS Details: The MARCUS probe used was [id number]. Color flow Doppler echo was performed to assess for the presence of a patent foramen ovale. MARCUS Medication: The patient was sedated by Anesthesia; please refer to anesthesia flow sheet for medications used. MARCUS Procedure: The probe was passed without difficulty. Left Ventricle: Left ventricular systolic function is normal. Wall motion is abnormal. The left ventricular cavity size is normal. Spectral Doppler shows an impaired relaxation pattern of left ventricular diastolic filling. Left Atrium: The left atrium is normal in size. There is no evidence of a patent foramen ovale. There is a normal sized left atrial appendage. Right Ventricle: The right ventricle is normal in size. There is normal right ventricular global systolic function. Right Atrium: The right atrium is normal in size. Aortic Valve: The aortic valve appears structurally normal. There is mild aortic valve regurgitation. Mitral Valve: The mitral valve is normal in structure. There is moderate mitral valve regurgitation. Tricuspid Valve: The tricuspid valve is structurally normal. There is moderate tricuspid regurgitation. Pulmonic Valve: The pulmonic valve is structurally normal. There is mild pulmonic valve regurgitation. Pericardium: There is a trivial pericardial effusion. Aorta: The aortic root is normal. CONCLUSIONS: 1. Left ventricular systolic function is normal. 2. Spectral Doppler shows an impaired relaxation pattern of left ventricular diastolic filling. 3. Moderate mitral valve regurgitation. 4. Moderate tricuspid regurgitation. 5. Mild aortic valve regurgitation. 6. 2+ MR. 7. 2+ TR. 8. 1-2 + AI. 9. 1+ PI. QUANTITATIVE DATA SUMMARY: M-MODE MEASUREMENTS: Normal Ranges: IVSd: 0.99 cm (0.6-1.1cm) LVPWd: 1.09 cm (0.6-1.1cm) LVIDd: 4.34 cm (3.9-5.9cm) LVIDs: 2.86 cm LV Mass Index: 71.0 g/m2 LV % FS 34.3 % LV SYSTOLIC FUNCTION BY 2D PLANIMETRY (MOD): Normal Ranges: EF-A4C View: 65.6 % (>=55%) EF-A2C View: 65.7 % EF-Biplane: 68.2 % LV DIASTOLIC FUNCTION: Normal Ranges: MV Peak E: 0.76 m/s (0.7-1.2 m/s) MV Peak A: 0.70 m/s (0.42-0.7 m/s) E/A Ratio: 1.09 (1.0-2.2) MITRAL VALVE: Normal Ranges: MV Vmax: 4.90 m/s (<=1.3m/s) MV peak P.0 mmHg (<5mmHg) MV DT: 221 msec (150-240msec) MITRAL INSUFFICIENCY: Normal Ranges: PISA Radius: 0.6 cm MR Vmax: 569.00 cm/s MR Alias Gael: 44.6 cm/s MR Flow Rt: 100.88 ml/s MR EROA: 0.18 cm2 AORTIC INSUFFICIENCY: AI Vmax: 4.11 m/s AI Half-time: 511 msec AI Decel Rate: 225.33 cm/s2 TRICUSPID VALVE/RVSP: Normal Ranges: Peak TR Velocity: 2.95 m/s RV Syst Pressure: 37.8 mmHg (< 30mmHg) [id number] Sana Tripp MD Electronically signed on 07/25/2023 at 3:17:44 PM Final ECG 12 Lead Result Date: 07/25/2023 Normal sinus rhythm Inferior infarct (cited on or before 19-JUL-2023) Abnormal ECG When compared with ECG of 24-JUL-2023 12:44, Serial changes of Inferior infarct Present XR chest 1 view Result Date: 07/25/2023 Interpreted By: Bjorn Sandoval, STUDY: XR CHEST 1 VIEW; 07/25/2023 7:50 am INDICATION: Signs/Symptoms:post line insertion. COMPARISON: 07/19/2023 ACCESSION NUMBER(S): [id number] ORDERING CLINICIAN: SANA TRIPP FINDINGS: Interval placement of a right jugular [place]Monae catheter. Catheter is pointing towards the right likely in the proximal right pulmonary artery. The there is no evidence for right pneumothorax. CARDIOMEDIASTINAL SILHOUETTE: Cardiomediastinal silhouette is normal in size and configuration. LUNGS: Lungs are clear. ABDOMEN: No remarkable upper abdominal findings. BONES: No acute osseous changes. 1. Interval [place]-Monae catheter placement tip of the proximal right pulmonary artery as discussed above. No pneumothorax. MACRO: None Signed by: Bjorn Sandoval 07/25/2023 10:38 AM Dictation workstation: [id number] Electrocardiogram, 12-lead Result Date: 07/24/2023 Normal sinus rhythm Possible Inferior infarct (cited on or before 19-JUL-2023) Abnormal ECG When compared with ECG of 23-JUL-2023 06:42, No significant change was found Confirmed by Nadir Moreland ([id number]) on 07/24/2023 9:28:45 PM Assessment/Plan Principal Problem: Acute myocardial infarction due to left coronary artery occlusion (CMS/HCC) Active Problems: Hyperlipidemia 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 Presented to OSH c/o midsternal CP that woke him from sleep. Ruled in as NSTEMI. Underwent coronary angiogram revealing diffuse TVD. Pt transferred to [facility] for consideration of surgical revascularization. July 24 pt underwent CABGx4 wit ESTES-LAD, SVG-PDA-OM, SVG-Diag; Endoscopic vein harvest; intraoperative MARCUS. -Discussed with Dr. Peck -appreciate assistance of ICU colleagues -Remove [place]. Keep arterial line until NEPI weaned off then may remove. -Wean NEPI for MAP>65 -Remove chest tubes this afternoon if output<30 mL/hr. Epicardial wires to remain in place -Mac for strict I&O. Hold diuresis for now. -ASA and Statin daily. Will need Plavix prior to discharge d/t NSTEMI/ACS -Resume BB as hemodynamics allow -Scheduled Tylenol, Lidoderm patch, PRN oxycodone, and PRN Dilaudid as ordered for pain -Bowel regimen of Miralax and Colace -CL diet; advance as tolerated to cardiac diet. Protonix for GI prophylaxis. -SCDs and ambulation for DVT prophylaxis; sub-q Heparin s/p chest tube removal -Pulmonary hygiene; encourage IS; wean supplemental oxygen for SPO2>90% -Increase activity as tolerated. OOB for all meals and ambulate TID. Therapy consulted - for DC planning -CBC, BMP, Mag, iCa, EKG, and CXR in AM HTN; HLD Lipid Panel: Chol 206, HDL 55.7, LDL 121, TRI 148. -Statin daily -resume BB as hemodynamics allow -appreciate assistance of Cardiology colleagues Anemia due to blood loss Acute post operative anemia. -monitor for signs of active bleeding -follow CBC I spent 60 minutes in the professional and overall care of this patient. Maryanne You APRN-MANAGER CONTRACT [facility] Progress Note Rounding ANTONIO/Fire Hose Curer: CHRISTY Hahn, Dr. Heraclio Benitez Primary Fire Hose Curer: Dr Horton Date: 07/26/2023 Patient: Robert Smiley Date of : 1960 Admit Date: 07/19/2023 SUBJECTIVE: 07/26/23 Alert and oriented x 3. Postop day 1 from CABG. Remains on small amount of norepinephrine. Up in chair. Minimal pain. Seems to be on the dry side. 07/24/2023: Patient remained stable hemodynamically with sinus rhythm and no significant arrhythmias overnight. Is scheduled for CABG tomorrow 07/23/23: Patient remains in status quo, denies any chest pain or shortness of breath with ambulation. He is awaiting CABG on Tuesday and he continues to maintain sinus rhythm with occasional PVCs. 07/22/23 Patient is awake and alert and oriented x 3 he states that he is not having any chest pain I spoke to him at length he is well-informed of plan of care that we are going to do the CABG on Tuesday answered all of his questions Telemetry is normal sinus rhythm with a Ke lesional PVC 07/21/23 Patient is awake and alert and oriented x 3. States he had a little indigestion this morning spoke to him at length he denies any chest pain or shortness of breath Telemetry is normal sinus rhythm with occasional PVC EKG is normal sinus rhythm has ST depression in inferior 07/20/23 Patient is resting quietly spoke to him at length he discussed at length with CT surgery they are planning for CABG on Tuesday He denies chest pain or shortness of breath Telemetry is normal sinus rhythm with occasional PVCs EKG is normal sinus rhythm no acute change 07/19/23 Robert Smiley is a 62 y.o. male patient who is being at the request of Dr. Salgado for inpatient consultation of angina. He was admitted on 07/19/2023. Previous [facility] and [facility] records have been reviewed in detail. Patient with a history of CAD, hypertension dyslipidemia was transferred from [facility] for CABG evaluation. On Ayaan the patient developed chest pain that radiated down his left arm along with chest pain he went to [facility] they transferred him to [facility] for heart catheterization LAD 95% Circumflex 95% RCA 95 to 99% Patient states they put him on a heparin drip send and will be here for CABG consult. He states he does not have any chest pain, fever, chills, nausea, vomiting, PND, orthopnea, claudications at this present time. He states that he has had a couple stents in the past. /EKG is normal sinus rhythm has ST depression in inferior/ VITALS: Vitals: 07/26/23 0800 07/26/23 0804 07/26/23 0831 07/26/23 0900 BP: 107/61 107/61 106/51 89/54 BP Location: Left arm Left arm Patient Position: Sitting Sitting Pulse: 84 84 80 80 Resp: 18 19 17 Temp: 37.5 C (99.5 F) TempSrc: Core SpO2: 100% 100% 100% 100% Weight: Height: Intake/Output Summary (Last 24 hours) at 07/26/2023 0910 Last data filed at 07/26/2023 0900 Gross per 24 hour Intake 6330.37 ml Output 3200 ml Net 3130.37 ml Wt Readings from Last 4 Encounters: 07/26/23 108 kg (238 lb 8.6 oz) 07/18/23 108 kg (239 lb) CURRENT HOSPITAL MEDICATIONS: acetaminophen, 650 mg, oral, q4h Or acetaminophen, 650 mg, rectal, q4h albumin human, 12.5 g, intravenous, Once aspirin, 81 mg, oral, Daily atorvastatin, 40 mg, oral, Nightly chlorhexidine, 15 mL, Mouth/Throat, BID heparin (porcine), 5,000 Units, subcutaneous, q8h insulin lispro, 0-15 Units, subcutaneous, q4h isosorbide mononitrate ER, 30 mg, oral, Daily lidocaine, 1 patch, transdermal, q24h metoprolol tartrate, 25 mg, oral, BID mupirocin, , Topical, BID pantoprazole, 40 mg, oral, Daily pantoprazole, 40 mg, oral, Daily before breakfast Or pantoprazole, 40 mg, intravenous, Daily before breakfast polyethylene glycol, 17 g, oral, Daily vancomycin, 1,500 mg, intravenous, q12h lactated Ringer's, 50 mL/hr, Last Rate: 50 mL/hr (07/25/23 0800) niCARdipine, 2.5-15 mg/hr norepinephrine, 0-1 mcg/kg/min, Last Rate: 0.05 mcg/kg/min (07/26/23 0831) Current Outpatient Medications Medication Instructions clopidogrel (PLAVIX) 75 mg, oral, Daily meloxicam (MOBIC) 7.5 mg, oral, Daily, Unsure if dose is correct
PHYSICAL EXAMINATION: GENERAL: Well developed, well nourished, in no acute distress. CHEST: Dressing CDI, chest tubes. NEURO/PSYCH: Alert and oriented times three with approppriate behavior and responses. NECK: Supple, no JVD, no bruit. LUNGS: Diminished. HEART: Rate and rhythm regular with no evident murmur, no gallop appreciated. EXTREMITIES: Warm with good color, no clubbing or cyanosis. There is no edema noted. PERIPHERAL VASCULAR: Pulses present and equally palpable; 2+ throughout. LAB DATA: CBC: Results from last 7 days Lab Units 07/26/23 0504 07/25/23191807/25/23 1455 WBC AUTO x10*3/uL 11.4* 13.0* 17.4* RBC AUTO x10*6/uL 3.26* 3.24* 4.08* HEMOGLOBIN g/dL 9.9* 10.0* 12.4* HEMATOCRIT % 29.7* 29.2* 36.4* MCV fL 91 90 89 MCH pg 30.4 30.9 30.4 MCHC g/dL 33.3 34.2 34.1 RDW % 13.8 13.3 13.2 PLATELETS AUTO x10*3/uL 160 161 187 CMP: Results from last 7 days Lab Units 07/26/23 0504 07/25/23191807/25/23 1455 07/25/23 0522 SODIUM mmol/L 137 137 139 137 POTASSIUM mmol/L 4.7 4.1 4.7 4.1 CHLORIDE mmol/L 105 106 108* 105 CO2 mmol/L 26 24 26 23 BUN mg/dL 14 15 16 22 CREATININE mg/dL 1.13 1.11 1.04 1.16 GLUCOSE mg/dL 117* 199* 104* 95 PROTEIN TOTAL g/dL -- -- -- 7.0 CALCIUM mg/dL 8.1* 8.0* 8.4* 9.1 BILIRUBIN TOTAL mg/dL -- -- -- 0.6 ALK PHOS U/L -- -- -- 70 AST U/L -- -- -- 54* ALT U/L -- -- -- 73* BMP: Results from last 7 days Lab Units 07/26/23 0504 07/25/23191807/25/23 1455 SODIUM mmol/L 137 137 139 POTASSIUM mmol/L 4.7 4.1 4.7 CHLORIDE mmol/L 105 106 108* CO2 mmol/L 26 24 26 BUN mg/dL 14 15 16 CREATININE mg/dL 1.13 1.11 1.04 CALCIUM mg/dL 8.1* 8.0* 8.4* GLUCOSE mg/dL 117* 199* 104* Magnesium: Results from last 7 days Lab Units 07/26/23 0504 07/25/23191807/25/23 1455 MAGNESIUM mg/dL 2.10 2.39 2.94* Troponin: BNP: Lipid Panel: Results from last 7 days Lab Units 07/19/23 1543 HDL mg/dL 55.7 CHOLESTEROL/HDL RATIO 3.7 VLDL mg/dL 30 TRIGLYCERIDES mg/dL 148 NON HDL CHOL. mg/dL 150* DIAGNOSTIC TESTING: ECG 12 Lead Result Date: 07/20/2023 Normal sinus rhythm Possible Inferior infarct (cited on or before 19-JUL-2023) Abnormal ECG When compared with ECG of 19-JUL-2023 07:06, No significant change was found Carotid duplex bilateral Result Date: 07/19/2023 Interpreted By: Hector Smith, STUDY: [facility] CAROTID ARTERY DUPLEX BILATERAL; 07/19/2023 2:38 pm INDICATION: Signs/Symptoms:pre-op CABG; r/o carotid stenosis. COMPARISON: None. ACCESSION NUMBER(S): [id number] ORDERING CLINICIAN: MARYANNE YOU TECHNIQUE: Vascular ultrasound of the extracranial carotid system was performed bilaterally. Griffith scale, color Doppler and spectral Doppler waveform analysis was performed. FINDINGS: RIGHT: On the right There is no evidence of atheromatous plaques in the common carotid arteries, visualized portions of the internal carotid arteries, and the proximal external carotid arteries. Doppler studies demonstrate normal flow pattern without evidence of turbulent flow.. The peak systolic velocities are as follows: RIGHT SIDE PEAK SYSTOLIC VELOCITY TABLE: CCA 116 cm/sec. ICA 58 cm/sec. ECA 105 cm/sec. The ratio of the peak systolic velocity of the right ICA/CCA is 0.5. RIGHT VERTEBRAL ARTERY: The right vertebral artery demonstrates proximal normal anterograde flow LEFT: On the left There is no evidence of atheromatous plaques in the common carotid arteries, visualized portions of the internal carotid arteries, and the proximal external carotid arteries. Doppler studies demonstrate normal flow pattern without evidence of turbulent flow.. The peak systolic velocities are as follows: LEFT SIDE PEAK SYSTOLIC VELOCITY TABLE: CCA 99 cm/sec. ICA 54 cm/sec. ECA 98 cm/sec. The ratio of the peak systolic velocity of the left ICA/CCA is 0.6. LEFT VERTEBRAL ARTERY: The left vertebral artery demonstrates proximal normal anterograde flow Normal flow pattern without evidence of hemodynamically relevant stenosis or atheromatous plaques in the visualized portions of the carotid circulation as described above. MACRO: None Signed by: Hector Smith 07/19/2023 3:43 PM Dictation workstation: [id number] XR chest 2 views Result Date: 07/19/2023 Interpreted By: Hector Smith, STUDY: XR CHEST 2 VIEWS; 07/19/2023 2:08 pm INDICATION: Signs/Symptoms:pre-op CABG. COMPARISON: None. ACCESSION NUMBER(S): [id number] ORDERING CLINICIAN: MARYANNE YOU FINDINGS: CARDIOMEDIASTINAL SILHOUETTE: Cardiomediastinal silhouette is normal in size and configuration. LUNGS: Mild left basilar atelectasis is present. No focal consolidation. No pleural effusion or pneumothorax. ABDOMEN: No remarkable upper abdominal findings. BONES: Multilevel predominantly anterior endplate spurring/partially bridging osteophytes are present in the thoracic spine. 1. Mild left basilar atelectasis. No focal consolidation. MACRO: None. Signed by: Hector Smith 07/19/2023 3:41 PM Dictation workstation: [id number] Transthoracic Echo (TTE) Complete Result Date: 07/19/2023 [place] [id number] TRANSTHORACIC ECHOCARDIOGRAM REPORT Patient Name: ROBERT SMILEY Reading Physician: [id number] Dev Ding MD, [facility] Study Date: 07/19/2023 Ordering Provider: [id number] EDUARDO FERRO MRN/PID: [id number] Fellow: Nurse: Mendoza Dowd RN Date of /Age: 5 1960 / 62 years Complaint Investigations Officer: Chloé Lyman RDCS Gender: M Additional Staff: Height: 172.72 cm Admit Date: 07/18/2023 Weight: 105.69 kg Admission Status: Inpatient - Routine BSA / BMI: 2.18 m2 / 35.43 Department Location: [facility] kg/m2 Echo Lab Blood Pressure: 112 /58 mmHg Study Type: TRANSTHORACIC ECHO (TTE) COMPLETE Diagnosis/ICD: Encounter for preprocedural cardiovascular examination-Z01.810 Indication: PRE-OP CABG CPT Codes: Echo Complete w Full Doppler-12751 Patient History: Pertinent History: CAD, Hyperlipidemia and MA. Study Detail: The following Echo studies were performed: 2D, M-Mode, Doppler and color flow. Definity used as a contrast agent for endocardial border definition. Total contrast used for this procedure was 2 mL via IV push. The patient was awake. PHYSICIAN INTERPRETATION: Left Ventricle: Left ventricular systolic function is normal, with an estimated ejection fraction of 55-60%. There are no regional wall motion abnormalities. The left ventricular cavity size is normal. The left ventricular septal wall thickness is mildly increased. There is normal left ventricular posterior wall thickness. Spectral Doppler shows an impaired relaxation pattern of left ventricular diastolic filling. Left Atrium: The left atrium is normal in size. Left atrial volume index 18.5 mL/m2. Right Ventricle: The right ventricle is normal in size. There is normal right ventricular global systolic function. Normal right ventricular chamber size and function. Right Atrium: The right atrium is normal in size. Aortic Valve: The aortic valve was not well visualized. There is mild aortic valve cusp calcification. There is no evidence of aortic valve regurgitation. The peak instantaneous gradient of the aortic valve is 7.8 mmHg. The mean gradient of the aortic valve is 4.0 mmHg. Mitral Valve: The mitral valve is normal in structure. There is trace mitral valve regurgitation. Tricuspid Valve: The tricuspid valve is structurally normal. There is trace tricuspid regurgitation. The right ventricular systolic pressure is unable to be estimated. Trivial tricuspid regurgitation. Pulmonic Valve: The pulmonic valve is structurally normal. There is no indication of pulmonic valve regurgitation. Pericardium: There is a trivial pericardial effusion. Aorta: The aortic root is normal. Systemic Veins: The inferior vena cava appears to be of normal size. There is IVC inspiratory collapse greater than 50%. CONCLUSIONS: 1. Left ventricular systolic function is normal with a 55-60% estimated ejection fraction. 2. Spectral Doppler shows an impaired relaxation pattern of left ventricular diastolic filling. 3. Normal right ventricular chamber size and function. 4. Trivial tricuspid regurgitation. 5. No previous available for comparison. QUANTITATIVE DATA SUMMARY: 2D MEASUREMENTS: Normal Ranges: Ao Root d: 2.90 cm (2.0-3.7cm) LAs: 3.70 cm (2.7-4.0cm) IVSd: 1.20 cm (0.6-1.1cm) LVPWd: 0.93 cm (0.6-1.1cm) LVIDd: 3.80 cm (3.9-5.9cm) LVIDs: 2.60 cm LV Mass Index: 58.8 g/m2 LV % FS 31.6 % LA VOLUME: Normal Ranges: LA Vol A4C: 37.5 ml (22+/-6mL/m2) LA Vol A2C: 40.3 ml LA Vol BP: 41.3 ml LA Vol Index A4C: 17.2ml/m2 LA Vol Index A2C: 18.5 ml/m2 LA Vol Index BP: 19.0 ml/m2 LA Area A4C: 15.7 cm2 LA Area A2C: 15.3 cm2 LA Major [place] A4C: 5.6 cm LA Major [place] A2C: 4.9 cm LA Volume Index: 17.9 ml/m2 RA VOLUME BY A/L METHOD: Normal Ranges: RA Vol A4C: 33.3 ml (8.3-19.5ml) RA Vol Index A4C: 15.3 ml/m2 RA Area A4C: 13.7 cm2 RA [place] A4C: 4.8 cm AORTA MEASUREMENTS: Normal Ranges: Asc Ao, d: 3.10 cm (2.1-3.4cm) LV SYSTOLIC FUNCTION BY 2D PLANIMETRY (MOD): Normal Ranges: EF-A4C View: 58.9 % (>=55%) EF-A2C View: 54.9 % EF-Biplane: 58.6 % LV DIASTOLIC FUNCTION: Normal Ranges: MV Peak E: 0.85 m/s (0.7-1.2 m/s) MV Peak A: 0.80 m/s (0.42-0.7 m/s) E/A Ratio: 1.07 (1.0-2.2) MV e' 0.11 m/s (>8.0) MV lateral e' 0.11 m/s MV medial e' 0.09 m/s E/e' Ratio: 7.73 (<8.0) MITRAL VALVE: Normal Ranges: MV DT: 229 msec (150-240msec) AORTIC VALVE: Normal Ranges: AoV Vmax: 1.40 m/s (<=1.7m/s) AoV Peak P.8 mmHg (<20mmHg) AoV Mean P.0 mmHg (1.7-11.5mmHg) LVOT Max Gael: 1.20 m/s (<=1.1m/s) AoV VTI: 24.60 cm (18-25cm) LVOT VTI: 24.30 cm LVOT Diameter: 2.00 cm (1.8-2.4cm) AoV Area, VTI: 3.10 cm2 (2.5-5.5cm2) AoV Area,Vmax: 2.69 cm2 (2.5-4.5cm2) AoV Dimensionless Index: 0.99 RIGHT VENTRICLE: RV Basal 3.11 cm RV Mid 2.26 cm RV Major 7.5 cm TAPSE: 25.4 mm RV s' 0.14 m/s TRICUSPID VALVE/RVSP: Normal Ranges: IVC Diam: 1.65 cm PULMONIC VALVE: Normal Ranges: PV Accel Time: 77 msec (>120ms) PV Max Gael: 1.0 m/s (0.6-0.9m/s) PV Max P.7 mmHg [id number] Dev Ding MD, FACC Electronically signed on 07/19/2023 at 2:33:[address] chest wo IV contrast Result Date: 07/19/2023 Interpreted By: Hector Smith, STUDY: CT CHEST WO IV CONTRAST; 07/19/2023 1:48 pm INDICATION: Signs/Symptoms:pre-op CABG; please assess ascending aorta for atherosclerosis and size. COMPARISON: None. ACCESSION NUMBER(S): [id number] ORDERING CLINICIAN: MARYANNE YOU TECHNIQUE: Contiguous unenhanced axial images were obtained through the chest. Images were reformatted in axial, coronal, and sagittal planes. FINDINGS: LUNGS and AIRWAYS: Small bands of subsegmental atelectasis or scar are present in the left lower lobe anteriorly as well as the lingula. Mild dependent atelectasis present bilaterally. No focal consolidation. No pleural effusion or pneumothorax. MEDIASTINUM and LITO, LOWER NECK AND AXILLA: No mediastinal or hilar lymphadenopathy is seen. No axillary lymphadenopathy. HEART and VESSELS: There is no thoracic aortic aneurysm. Ascending thoracic aorta is uniform in caliber measuring approximately 3.1 x 3.1 cm in transverse and AP diameters. Small irregular calcifications are seen at the aortic root level. No additional calcification is seen in the ascending thoracic aorta. Small atherosclerotic calcification is seen in the distal aortic arch. Descending thoracic aorta is uniform in caliber measuring 2.4 cm in diameter. Coronary artery calcifications and/or stents are present. No pericardial effusion. Heart is not significantly enlarged. UPPER ABDOMEN: Gallbladder is not abnormally distended and contains mixed attenuation gallstone in the dependent portion toward the base. No pericholecystic inflammation is seen. No biliary dilation. CHEST WALL and OSSEOUS STRUCTURES: There is mild S-shaped scoliosis of the thoracic spine. Multilevel disc space narrowing and predominantly anterior endplate spurring/partially bridging osteophytes are most prominent in the mid-lower thoracic spine. 1. No thoracic aortic aneurysm. Ascending thoracic aorta measures 3.1 cm in diameter. 2. Irregular calcification at the aortic root level. No evidence of calcification in the ascending thoracic aorta. 3. Cholelithiasis. No pericholecystic inflammation. No biliary dilation. MACRO: None. Signed by: Hector Smith 07/19/2023 2:09 PM Dictation workstation: [id number] ECG 12 lead Result Date: 07/19/2023 Normal sinus rhythm Possible Inferior infarct , age undetermined Abnormal ECG No previous ECGs available Confirmed by Courtney Shrestha ([id number]) on 07/19/2023 7:31:32 AM XR chest 1 view Final Result 1. Low inspiratory volume. Bibasilar infiltrates and/or atelectasis, left greater than right, similar to prior. MACRO: None. Signed by: Hector Smith 07/26/2023 8:21 AM Dictation workstation: [id number] XR chest 1 view Final Result Postop changes. Question of basilar infiltrate or atelectasis. A nasogastric tube may be present. The course and location of the tip is uncertain. MACRO: none Signed by: Janet Pate 07/25/2023 4:09 PM Dictation workstation: [id number] XR chest 1 view Final Result 1. Interval [place]Mon[place] catheter placement tip of the proximal right pulmonary artery as discussed above. No pneumothorax. MACRO: None Signed by: Bjorn Sandoval 07/25/2023 10:38 AM Dictation workstation: [id number] Anesthesia Intraoperative Transesophageal Echocardiogram Final Result Carotid duplex bilateral Final Result Normal flow pattern without evidence of hemodynamically relevant stenosis or atheromatous plaques in the visualized portions of the carotid circulation as described above. MACRO: None Signed by: Hector Smith 07/19/2023 3:43 PM Dictation workstation: [id number] XR chest 2 views Final Result 1. Mild left basilar atelectasis. No focal consolidation. MACRO: None. Signed by: Hector Smith 07/19/2023 3:41 PM Dictation workstation: [id number] CT chest wo IV contrast Final Result 1. No thoracic aortic aneurysm. Ascending thoracic aorta measures 3.1 cm in diameter. 2. Irregular calcification at the aortic root level. No evidence of calcification in the ascending thoracic aorta. 3. Cholelithiasis. No pericholecystic inflammation. No biliary dilation. MACRO: None. Signed by: Hector Smith 07/19/2023 2:09 PM Dictation workstation: [id number] Transthoracic Echo (TTE) Complete Final Result Transthoracic Echo (TTE) Complete Result Date: 07/19/2023 [place] [id number] TRANSTHORACIC ECHOCARDIOGRAM REPORT Patient Name: ROBERT SMILEY Reading Physician: [id number] Dev Ding MD, [facility] Study Date: 07/19/2023 Ordering Provider: [id number] EDUARDO FERRO MRN/PID: [id number] Fellow: Nurse: Mendoza Dowd RN Date of /Age: 5 1960 / 62 years Complaint Investigations Officer: Chloé Lyman RDCS Gender: M Additional Staff: Height: 172.72 cm Admit Date: 07/18/2023 Weight: 105.69 kg Admission Status: Inpatient - Routine BSA / BMI: 2.18 m2 / 35.43 [facility] Blood Pressure: 112 /58 mmHg Study Type: TRANSTHORACIC ECHO (TTE) COMPLETE Diagnosis/ICD: Encounter for preprocedural cardiovascular examination-Z01.810 Indication: PRE-OP CABG CPT Codes: Echo Complete w Full Doppler-[id number] Patient History: Pertinent History: CAD, Hyperlipidemia and MA. Study Detail: The following Echo studies were performed: 2D, M-Mode, Doppler and color flow. Definity used as a contrast agent for endocardial border definition. Total contrast used for this procedure was 2 mL via IV push. The patient was awake. PHYSICIAN INTERPRETATION: Left Ventricle: Left ventricular systolic function is normal, with an estimated ejection fraction of 55-60%. There are no regional wall motion abnormalities. The left ventricular cavity size is normal. The left ventricular septal wall thickness is mildly increased. There is normal left ventricular posterior wall thickness. Spectral Doppler shows an impaired relaxation pattern of left ventricular diastolic filling. Left Atrium: The left atrium is normal in size. Left atrial volume index 18.5 mL/m2. Right Ventricle: The right ventricle is normal in size. There is normal right ventricular global systolic function. Normal right ventricular chamber size and function. Right Atrium: The right atrium is normal in size. Aortic Valve: The aortic valve was not well visualized. There is mild aortic valve cusp calcification. There is no evidence of aortic valve regurgitation. The peak instantaneous gradient of the aortic valve is 7.8 mmHg. The mean gradient of the aortic valve is 4.0 mmHg. Mitral Valve: The mitral valve is normal in structure. There is trace mitral valve regurgitation. Tricuspid Valve: The tricuspid valve is structurally normal. There is trace tricuspid regurgitation. The right ventricular systolic pressure is unable to be estimated. Trivial tricuspid regurgitation. Pulmonic Valve: The pulmonic valve is structurally normal. There is no indication of pulmonic valve regurgitation. Pericardium: There is a trivial pericardial effusion. Aorta: The aortic root is normal. Systemic Veins: The inferior vena cava appears to be of normal size. There is IVC inspiratory collapse greater than 50%. CONCLUSIONS: 1. Left ventricular systolic function is normal with a 55-60% estimated ejection fraction. 2. Spectral Doppler shows an impaired relaxation pattern of left ventricular diastolic filling. 3. Normal right ventricular chamber size and function. 4. Trivial tricuspid regurgitation. 5. No previous available for comparison. QUANTITATIVE DATA SUMMARY: 2D MEASUREMENTS: Normal Ranges: Ao Root d: 2.90 cm (2.0-3.7cm) LAs: 3.70 cm (2.7-4.0cm) IVSd: 1.20 cm (0.6-1.1cm) LVPWd: 0.93 cm (0.6-1.1cm) LVIDd: 3.80 cm (3.9-5.9cm) LVIDs: 2.60 cm LV Mass Index: 58.8 g/m2 LV % FS 31.6 % LA VOLUME: Normal Ranges: LA Vol A4C: 37.5 ml (22+/-6mL/m2) LA Vol A2C: 40.3 ml LA Vol BP: 41.3 ml LA Vol Index A4C: 17.2ml/m2 LA Vol Index A2C: 18.5 ml/m2 LA Vol Index BP: 19.0 ml/m2 LA Area A4C: 15.7 cm2 LA Area A2C: 15.3 cm2 LA Major [place] A4C: 5.6 cm LA Major [place] A2C: 4.9 cm LA Volume Index: 17.9 ml/m2 RA VOLUME BY A/L METHOD: Normal Ranges: RA Vol A4C: 33.3 ml (8.3-19.5ml) RA Vol Index A4C: 15.3 ml/m2 RA Area A4C: 13.7 cm2 RA Major [place] A4C: 4.8 cm AORTA MEASUREMENTS: Normal Ranges: Asc Ao, d: 3.10 cm (2.1-3.4cm) LV SYSTOLIC FUNCTION BY 2D PLANIMETRY (MOD): Normal Ranges: EF-A4C View: 58.9 % (>=55%) EF-A2C View: 54.9 % EF-[place]: 58.6 % LV DIASTOLIC FUNCTION: Normal Ranges: MV Peak E: 0.85 m/s (0.7-1.2 m/s) MV Peak A: 0.80 m/s (0.42-0.7 m/s) E/A Ratio: 1.07 (1.0-2.2) MV e' 0.11 m/s (>8.0) MV lateral e' 0.11 m/s MV medial e' 0.09 m/s E/e' Ratio: 7.73 (<8.0) MITRAL VALVE: Normal Ranges: MV DT: 229 msec (150-240msec) AORTIC VALVE: Normal Ranges: AoV Vmax: 1.40 m/s (<=1.7m/s) AoV Peak P.8 mmHg (<20mmHg) AoV Mean P.0 mmHg (1.7-11.5mmHg) LVOT Max Gael: 1.20 m/s (<=1.1m/s) AoV VTI: 24.60 cm (18-25cm) LVOT VTI: 24.30 cm LVOT Diameter: 2.00 cm (1.8-2.4cm) AoV Area, VTI: 3.10 cm2 (2.5-5.5cm2) AoV Area,Vmax: 2.69 cm2 (2.5-4.5cm2) AoV Dimensionless Index: 0.99 RIGHT VENTRICLE: RV Basal 3.11 cm RV Mid 2.26 cm RV Major 7.5 cm TAPSE: 25.4 mm RV s' 0.14 m/s TRICUSPID VALVE/RVSP: Normal Ranges: IVC Diam: 1.65 cm PULMONIC VALVE: Normal Ranges: PV Accel Time: 77 msec (>120ms) PV Max Gael: 1.0 m/s (0.6-0.9m/s) PV Max P.7 mmHg [id number] Dev Ding MD, [facility] Electronically signed on 07/19/2023 at 2:33:57 PM Final RADIOLOGY: XR chest 1 view Final Result 1. Low inspiratory volume. Bibasilar infiltrates and/or atelectasis, left greater than right, similar to prior. MACRO: None. Signed by: Hector Smith 07/26/2023 8:21 AM Dictation workstation: [id number] XR chest 1 view Final Result Postop changes. Question of basilar infiltrate or atelectasis. A nasogastric tube may be present. The course and location of the tip is uncertain. MACRO: none Signed by: Janet Pate 07/25/2023 4:09 PM Dictation workstation: [id number] XR chest 1 view Final Result 1. Interval [place]Mon[place] catheter placement tip of the proximal right pulmonary artery as discussed above. No pneumothorax. MACRO: None Signed by: Bjorn Sandoval 07/25/2023 10:38 AM Dictation workstation: [id number] Anesthesia Intraoperative Transesophageal Echocardiogram Final Result Carotid duplex bilateral Final Result Normal flow pattern without evidence of hemodynamically relevant stenosis or atheromatous plaques in the visualized portions of the carotid circulation as described above. MACRO: None Signed by: Hector Smith 07/19/2023 3:43 PM Dictation workstation: [id number] XR chest 2 views Final Result 1. Mild left basilar atelectasis. No focal consolidation. MACRO: None. Signed by: Hector Smith 07/19/2023 3:41 PM Dictation workstation: [id number] CT chest wo IV contrast Final Result 1. No thoracic aortic aneurysm. Ascending thoracic aorta measures 3.1 cm in diameter. 2. Irregular calcification at the aortic root level. No evidence of calcification in the ascending thoracic aorta. 3. Cholelithiasis. No pericholecystic inflammation. No biliary dilation. MACRO: None. Signed by: Hector Smith 07/19/2023 2:09 PM Dictation workstation: [id number] Transthoracic Echo (TTE) Complete Final Result PROBLEM LIST Patient Active Problem List Diagnosis Acute myocardial infarction due to left coronary artery occlusion (CMS/HCC) Hyperlipidemia Coronary artery disease of [place] artery of [place] heart with stable angina pectoris (CMS/HCC) Asperger's syndrome Elevated troponin ASSESSMENT: CAD triple-vessel disease Hypertension Dyslipidemia PLAN: Patient seen and examined in conjunction with Troy Ferro APRN and agree with the evaluation as noted above. 62-year-old gentleman who was transferred from [facility] for possible angina. He has a history of CAD hypertension dyslipidemia and presented to the hospital with unstable angina with radiation to the left arm. Emergent cardiac catheterization showed severe triple-vessel disease as noted above with 95% LAD, left circumflex as well as RCA. Patient was transferred for CABG. He is currently chest pain-free. EKG shows sinus rhythm with inferolateral ST depression. Cardiac exam reveals regular first and second heart sound, no murmurs are heard. Chest is clear to auscultation. ASSESSMENT AND PLAN: 1. CAD: With severe triple-vessel disease, awaiting cardiac evaluation. In the meantime, we will get an echocardiogram to rule out any significant valvular abnormalities and we will hold his Plavix for impending surgery. Full recommendations to be based on CV surgical evaluation. 2.Hypertension: We will continue to optimize blood pressure control. 3. Dyslipidemia: Continue with her current high intensity lipid-lowering therapy. AKBeatriz 07/20/23 Tele monitoring Continue the heparin drip Plan for CABG on Tuesday Daily EKGs Further recommendations per Dr Emmanuel Ferro CNP [facility] Of note, this documentation is completed using the [employer] system (voice recognition software). There may be spelling and/or grammatical errors that were not corrected prior to final submission. Please do not hesitate to call with questions. Patient seen and examined in conjunction with Troy Ferro APRN and agree with the evaluation as noted above. Patient remains in status quo, continues to be chest pain-free. He is awaiting CABG tentatively scheduled for next week Tuesday pending washout of Plavix. Preop echo shows normal LV function with no gross valvular abnormalities as noted above. Will continue with her other current cardiac medications and plan for surgery as scheduled. DUSTIN 07/21/23 Tele monitoring Aspirin 81 mg daily Lipitor 40 mg daily Imdur 30 mg daily Lopressor 25 mg p.o. twice daily Continue the heparin drip Plan for CABG on Tuesday Further recommendations per Dr Benitez Patient seen and examined in conjunction with Troy Ferro APRN and agree with the evaluation as noted above. Patient continues to do well with no recurrent chest pain. Awaiting surgery as scheduled. Continues to maintain sinus rhythm with no significant arrhythmias on the monitor. Will continue current cardiac medications and follow the patient postoperatively. DUSTIN 07/22/23 Tele monitoring Continue the heparin drip for now Plan for CABG on Tuesday Further recommendations per Dr Benitez 07/23/23: Patient continues to do well and remains in status quo with no chest pain or shortness of breath with ambulation. Awaiting CABG on Tuesday as scheduled. We will continue with current medications and follow the patient postoperatively. AKA 07/24/23 Patient continues to do well with no recurrent chest pain or significant shortness of breath. He is awaiting CABG scheduled for tomorrow we will continue with current medications and follow the patient postoperatively. AKA 07/26/23 Alert and oriented x 3. Up in chair. Very hard of hearing but conversing appropriately. Denies any significant chest pain or shortness of breath. Still on small amount of norepinephrine which is weaning off. Receiving albumin this morning. Plan to remove chest tubes today along with PA catheter Gentle hydration, monitor strict I's and O's and daily weights Initiate beta-roman when BP allows Will continue to follow along Patient is doing well postop, off pressors and maintaining sinus rhythm. Cardiac exam did not reveal any significant pericardial rub. Will continue with current supportive treatment and anticipate initiation of low-dose beta-blockers as tolerated. AKA Robert Smiley is a 62 y.o. male on day 7 of admission presenting with Acute myocardial infarction due to left coronary artery occlusion (CMS/HCC). 62 y.o. year old male patient with Past Medical History of HTN, HLD, CAD s/p PCI (2016), and life time non-smoker who presented to OSH Tuesday morning c/o midsternal chest pain that radiated down his arms and woke him from sleep. He was transported via EMS; given SL nitroglycerine x2 en route with resolution of symptoms. Per ED note, EKG showed NSR with t-wave inversion in inferior leads. Troponin peaked at 4598. Pt was given full strength Aspirin, started on Heparin drip, and admitted to telemetry. The following day he underwent coronary angiogram revealing diffuse triple vessel disease and was transferred to [facility] for consideration of CABG. Admitted to ICU on 07/24 s/p: Creation Bypass Graft Coronary Artery X 4 (estes/lad, svg-cx-pda, svg-diag); MARCUS; [facility] [id number] - [place] CABG W/ARTERIAL GRAFT TWO ARTERIAL GRAFTS Median Sternotomy Standard central cannulation Right leg EV CABG x 4 (elvin to LAD, SVG to diagonal, Svg sequential PDA and CX) Subjective Sitting in a chair this morning. Alert and oriented. On norepinephrine 0.07 mcg/KG/minute. Some generalized edema throughout upper and lower extremities. Objective Physical Exam HENT: Head: Normocephalic. Mouth/Throat: Mouth: Mucous membranes are moist. Eyes: Pupils: Pupils are equal, round, and reactive to light. Cardiovascular: Rate and Rhythm: Normal rate and regular rhythm. Pulses: Normal pulses. Pulmonary: Effort: Pulmonary effort is normal. Abdominal: Palpations: Abdomen is soft. Genitourinary: Comments: Mac to SILVANO Skin: General: Skin is warm. Capillary Refill: Capillary refill takes less than 2 seconds. Neurological: General: No focal deficit present. Mental Status: He is alert and oriented to person, place, and time. Last Recorded Vitals Blood pressure 102/52, pulse 88, temperature 38.3 C (100.9 F), temperature source Core, resp. rate 18, height 1.727 m (5' 8 ), weight 108 kg (238 lb 8.6 oz), SpO2 100 %. Intake/Output last 3 Shifts: I/O last 3 completed shifts: In: 7252.4 (67 mL/kg) [P.O.:120; I.V.:5182.4 (47.9 mL/kg); Blood:1450; IV Piggyback:500] Out: 3085 (28.5 mL/kg) [Urine:2680 (0.7 mL/kg/hr); Chest Tube:405] Weight: 108.2 kg Relevant Results Results for orders placed or performed during the hospital encounter of 07/19/23 (from the past 24 hour(s)) Blood Gas Arterial Full Panel Unsolicited Result Value Ref Range POCT pH, Arterial 7.39 7.38 - 7.42 pH POCT pCO2, Arterial 41 38 - 42 mm Hg POCT pO2, Arterial 477 (H) 85 - 95 mm Hg POCT SO2, Arterial 100 94 - 100 % POCT Oxy Hemoglobin, Arterial 97.7 94.0 - 98.0 % POCT Hematocrit Calculated, Arterial 43.0 41.0 - 52.0 % POCT Sodium, Arterial 135 (L) 136 - 145 mmol/L POCT Potassium, Arterial 3.9 3.5 - 5.3 mmol/L POCT Chloride, Arterial 107 98 - 107 mmol/L POCT Ionized Calcium, Arterial 1.15 1.10 - 1.33 mmol/L POCT Glucose, Arterial 116 (H) 74 - 99 mg/dL POCT Lactate, Arterial 1.1 0.4 - 2.0 mmol/L POCT Base Excess, Arterial -0.2 -2.0 - 3.0 mmol/L POCT HCO3 Calculated, Arterial 24.8 22.0 - 26.0 mmol/L POCT Hemoglobin, Arterial 14.4 13.5 - 17.5 g/dL POCT Anion Gap, Arterial 7 (L) 10 - 25 mmo/L Patient Temperature FiO2 100 % Blood Gas Venous Full Panel Unsolicited Result Value Ref Range POCT pH, Venous 7.33 7.33 - 7.43 pH POCT pCO2, Venous 48 41 - 51 mm Hg POCT pO2, Venous 56 (H) 35 - 45 mm Hg POCT SO2, Venous 88 (H) 45 - 75 % POCT Oxy Hemoglobin, Venous 85.2 (H) 45.0 - 75.0 % POCT Hematocrit Calculated, Venous 41.0 41.0 - 52.0 % POCT Sodium, Venous 134 (L) 136 - 145 mmol/L POCT Potassium, Venous 4.2 3.5 - 5.3 mmol/L POCT Chloride, Venous 103 98 - 107 mmol/L POCT Ionized Cal[place], Venous 1.19 1.10 - 1.33 mmol/L POCT Glucose, Venous 133 (H) 74 - 99 mg/dL POCT Lactate, Venous 1.0 0.4 - 2.0 mmol/L POCT Base Excess, Venous -1.1 -2.0 - 3.0 mmol/L POCT HCO3 Calculated, Venous 25.3 22.0 - 26.0 mmol/L POCT Hemoglobin, Venous 13.8 13.5 - 17.5 g/dL POCT Anion Gap, Venous 10.0 10.0 - 25.0 mmol/L Patient Temperature FiO2 100 % Blood Gas Arterial Full Panel Unsolicited Result Value Ref Range POCT pH, Arterial 7.29 (L) 7.38 - 7.42 pH POCT pCO2, Arterial 48 (H) 38 - 42 mm Hg POCT pO2, Arterial 384 (H) 85 - 95 mm Hg POCT SO2, Arterial 100 94 - 100 % POCT Oxy Hemoglobin, Arterial 97.6 94.0 - 98.0 % POCT Hematocrit Calculated, Arterial 40.0 (L) 41.0 - 52.0 % POCT Sodium, Arterial 129 (L) 136 - 145 mmol/L POCT Potassium, Arterial 4.3 3.5 - 5.3 mmol/L POCT Chloride, Arterial 102 98 - 107 mmol/L POCT Ionized Calcium, Arterial 1.15 1.10 - 1.33 mmol/L POCT Glucose, Arterial 251 (H) 74 - 99 mg/dL POCT Lactate, Arterial 1.2 0.4 - 2.0 mmol/L POCT Base Excess, Arterial -3.8 (L) -2.0 - 3.0 mmol/L POCT HCO3 Calculated, Arterial 23.1 22.0 - 26.0 mmol/L POCT Hemoglobin, Arterial 13.3 (L) 13.5 - 17.5 g/dL POCT Anion Gap, Arterial 8 (L) 10 - 25 mmo/L Patient Temperature Blood Gas Arterial Full Panel Unsolicited Result Value Ref Range POCT pH, Arterial 7.36 (L) 7.38 - 7.42 pH POCT pCO2, Arterial 41 38 - 42 mm Hg POCT pO2, Arterial 488 (H) 85 - 95 mm Hg POCT SO2, Arterial 100 94 - 100 % POCT Oxy Hemoglobin, Arterial 97.6 94.0 - 98.0 % POCT Hematocrit Calculated, Arterial 34.0 (L) 41.0 - 52.0 % POCT Sodium, Arterial 131 (L) 136 - 145 mmol/L POCT Potassium, Arterial 5.4 (H) 3.5 - 5.3 mmol/L POCT Chloride, Arterial 103 98 - 107 mmol/L POCT Ionized Calcium, Arterial 1.08 (L) 1.10 - 1.33 mmol/L POCT Glucose, Arterial 173 (H) 74 - 99 mg/dL POCT Lactate, Arterial 1.5 0.4 - 2.0 mmol/L POCT Base Excess, Arterial -2.2 (L) -2.0 - 3.0 mmol/L POCT HCO3 Calculated, Arterial 23.2 22.0 - 26.0 mmol/L POCT Hemoglobin, Arterial 11.4 (L) 13.5 - 17.5 g/dL POCT Anion Gap, Arterial 10 10 - 25 mmo/L Patient Temperature FiO2 100 % Blood Gas Venous Full Panel Unsolicited Result Value Ref Range POCT pH, Venous 7.33 7.33 - 7.43 pH POCT pCO2, Venous 46 41 - 51 mm Hg POCT pO2, Venous 65 (H) 35 - 45 mm Hg POCT SO2, Venous 95 (H) 45 - 75 % POCT Oxy Hemoglobin, Venous 92.4 (H) 45.0 - 75.0 % POCT Hematocrit Calculated, Venous 34.0 (L) 41.0 - 52.0 % POCT Sodium, Venous 132 (L) 136 - 145 mmol/L POCT Potassium, Venous 5.5 (H) 3.5 - 5.3 mmol/L POCT Chloride, Venous 102 98 - 107 mmol/L POCT Ionized Calicum, Venous 1.09 (L) 1.10 - 1.33 mmol/L POCT Glucose, Venous 160 (H) 74 - 99 mg/dL POCT Lactate, Venous 1.5 0.4 - 2.0 mmol/L POCT Base Excess, Venous -1.8 -2.0 - 3.0 mmol/L POCT HCO3 Calculated, Venous 24.3 22.0 - 26.0 mmol/L POCT Hemoglobin, Venous 11.4 (L) 13.5 - 17.5 g/dL POCT Anion Gap, Venous 11.0 10.0 - 25.0 mmol/L Patient Temperature FiO2 90 % Blood Gas Arterial Full Panel Unsolicited Result Value Ref Range POCT pH, Arterial 7.36 (L) 7.38 - 7.42 pH POCT pCO2, Arterial 46 (H) 38 - 42 mm Hg POCT pO2, Arterial 397 (H) 85 - 95 mm Hg POCT SO2, Arterial 100 94 - 100 % POCT Oxy Hemoglobin, Arterial 97.6 94.0 - 98.0 % POCT Hematocrit Calculated, Arterial 34.0 (L) 41.0 - 52.0 % POCT Sodium, Arterial 133 (L) 136 - 145 mmol/L POCT Potassium, Arterial 5.3 3.5 - 5.3 mmol/L POCT Chloride, Arterial 103 98 - 107 mmol/L POCT Ionized Calcium, Arterial 1.08 (L) 1.10 - 1.33 mmol/L POCT Glucose, Arterial 142 (H) 74 - 99 mg/dL POCT Lactate, Arterial 1.6 0.4 - 2.0 mmol/L POCT Base Excess, Arterial 0.2 -2.0 - 3.0 mmol/L POCT HCO3 Calculated, Arterial 26.0 22.0 - 26.0 mmol/L POCT Hemoglobin, Arterial 11.3 (L) 13.5 - 17.5 g/dL POCT Anion Gap, Arterial 9 (L) 10 - 25 mmo/L Patient Temperature FiO2 80 % Blood Gas Arterial Full Panel Unsolicited Result Value Ref Range POCT pH, Arterial 7.36 (L) 7.38 - 7.42 pH POCT pCO2, Arterial 44 (H) 38 - 42 mm Hg POCT pO2, Arterial 312 (H) 85 - 95 mm Hg POCT SO2, Arterial 100 94 - 100 % POCT Oxy Hemoglobin, Arterial 97.6 94.0 - 98.0 % POCT Hematocrit Calculated, Arterial 34.0 (L) 41.0 - 52.0 % POCT Sodium, Arterial 132 (L) 136 - 145 mmol/L POCT Potassium, Arterial 5.4 (H) 3.5 - 5.3 mmol/L POCT Chloride, Arterial 104 98 - 107 mmol/L POCT Ionized Calcium, Arterial 1.05 (L) 1.10 - 1.33 mmol/L POCT Glucose, Arterial 142 (H) 74 - 99 mg/dL POCT Lactate, Arterial 1.8 0.4 - 2.0 mmol/L POCT Base Excess, Arterial -0.7 -2.0 - 3.0 mmol/L POCT HCO3 Calculated, Arterial 24.9 22.0 - 26.0 mmol/L POCT Hemoglobin, Arterial 11.2 (L) 13.5 - 17.5 g/dL POCT Anion Gap, Arterial 9 (L) 10 - 25 mmo/L Patient Temperature FiO2 80 % Blood Gas Arterial Full Panel Unsolicited Result Value Ref Range POCT pH, Arterial 7.34 (L) 7.38 - 7.42 pH POCT pCO2, Arterial 44 (H) 38 - 42 mm Hg POCT pO2, Arterial 333 (H) 85 - 95 mm Hg POCT SO2, Arterial 100 94 - 100 % POCT Oxy Hemoglobin, Arterial 97.6 94.0 - 98.0 % POCT Hematocrit Calculated, Arterial 34.0 (L) 41.0 - 52.0 % POCT Sodium, Arterial 133 (L) 136 - 145 mmol/L POCT Potassium, Arterial 5.4 (H) 3.5 - 5.3 mmol/L POCT Chloride, Arterial 104 98 - 107 mmol/L POCT Ionized Calcium, Arterial 1.10 1.10 - 1.33 mmol/L POCT Glucose, Arterial 137 (H) 74 - 99 mg/dL POCT Lactate, Arterial 1.8 0.4 - 2.0 mmol/L POCT Base Excess, Arterial -2.1 (L) -2.0 - 3.0 mmol/L POCT HCO3 Calculated, Arterial 23.7 22.0 - 26.0 mmol/L POCT Hemoglobin, Arterial 11.3 (L) 13.5 - 17.5 g/dL POCT Anion Gap, Arterial 11 10 - 25 mmo/L Patient Temperature FiO2 90 % Blood Gas Arterial Full Panel Unsolicited Result Value Ref Range POCT pH, Arterial 7.44 (H) 7.38 - 7.42 pH POCT pCO2, Arterial 39 38 - 42 mm Hg POCT pO2, Arterial 395 (H) 85 - 95 mm Hg POCT SO2, Arterial POCT Oxy Hemoglobin, Arterial POCT Hematocrit Calculated, Arterial POCT Sodium, Arterial 135 (L) 136 - 145 mmol/L POCT Potassium, Arterial 4.8 3.5 - 5.3 mmol/L POCT Chloride, Arterial 103 98 - 107 mmol/L POCT Ionized Calcium, Arterial 1.05 (L) 1.10 - 1.33 mmol/L POCT Glucose, Arterial 128 (H) 74 - 99 mg/dL POCT Lactate, Arterial 1.8 0.4 - 2.0 mmol/L POCT Base Excess, Arterial 2.3 -2.0 - 3.0 mmol/L POCT HCO3 Calculated, Arterial 26.5 (H) 22.0 - 26.0 mmol/L POCT Hemoglobin, Arterial POCT Anion Gap, Arterial 10 10 - 25 mmo/L Patient Temperature Blood Gas Arterial Full Panel Unsolicited Result Value Ref Range POCT pH, Arterial 7.36 (L) 7.38 - 7.42 pH POCT pCO2, Arterial 45 (H) 38 - 42 mm Hg POCT pO2, Arterial 345 (H) 85 - 95 mm Hg POCT SO2, Arterial 100 94 - 100 % POCT Oxy Hemoglobin, Arterial 97.5 94.0 - 98.0 % POCT Hematocrit Calculated, Arterial 32.0 (L) 41.0 - 52.0 % POCT Sodium, Arterial 135 (L) 136 - 145 mmol/L POCT Potassium, Arterial 4.3 3.5 - 5.3 mmol/L POCT Chloride, Arterial 106 98 - 107 mmol/L POCT Ionized Calcium, Arterial 1.34 (H) 1.10 - 1.33 mmol/L POCT Glucose, Arterial 108 (H) 74 - 99 mg/dL POCT Lactate, Arterial 2.0 0.4 - 2.0 mmol/L POCT Base Excess, Arterial -0.3 -2.0 - 3.0 mmol/L POCT HCO3 Calculated, Arterial 25.4 22.0 - 26.0 mmol/L POCT Hemoglobin, Arterial 10.8 (L) 13.5 - 17.5 g/dL POCT Anion Gap, Arterial 8 (L) 10 - 25 mmo/L Patient Temperature POCT GLUCOSE Result Value Ref Range POCT Glucose 108 (H) 74 - 99 mg/dL Blood gas arterial Result Value Ref Range POCT pH, Arterial 7.37 (L) 7.38 - 7.42 pH POCT pCO2, Arterial 45 (H) 38 - 42 mm Hg POCT pO2, Arterial 182 (H) 85 - 95 mm Hg POCT SO2, Arterial 100 94 - 100 % POCT Oxy Hemoglobin, Arterial 98.2 (H) 94.0 - 98.0 % POCT Base Excess, Arterial 0.3 -2.0 - 3.0 mmol/L POCT HCO3 Calculated, Arterial 26.0 22.0 - 26.0 mmol/L Patient Temperature FiO2 60 % Ventilator Mode A/C Ventilator Rate 12 bpm Tidal Volume 500 mL Peep CHM2O 5.0 cm H2O Site of Arterial Puncture Arterial Line Calcium, Ionized Result Value Ref Range POCT Calcium, Ionized 1.18 1.1 - 1.33 mmol/L Magnesium Result Value Ref Range Magnesium 2.94 (H) 1.60 - 2.40 mg/dL Coagulation Screen Result Value Ref Range Protime 13.8 (H) 9.8 - 12.8 seconds INR 1.2 (H) 0.9 - 1.1 aPTT 32 27 - 38 seconds Fibrinogen Result Value Ref Range Fibrinogen 313 200 - 400 mg/dL CBC Result Value Ref Range WBC 17.4 (H) 4.4 - 11.3 x10*3/uL nRBC 0.0 0.0 - 0.0 /100 WBCs RBC 4.08 (L) 4.50 - 5.90 x10*6/uL Hemoglobin 12.4 (L) 13.5 - 17.5 g/dL Hematocrit 36.4 (L) 41.0 - 52.0 % MCV 89 80 - 100 fL MCH 30.4 26.0 - 34.0 pg MCHC 34.1 32.0 - 36.0 g/dL RDW 13.2 11.5 - 14.5 % Platelets 187 150 - 450 x10*3/uL Renal Function Panel Result Value Ref Range Glucose 104 (H) 74 - 99 mg/dL Sodium 139 136 - 145 mmol/L Potassium 4.7 3.5 - 5.3 mmol/L Chloride 108 (H) 98 - 107 mmol/L Bicarbonate 26 21 - 32 mmol/L Anion Gap 10 10 - 20 mmol/L Urea Nitrogen 16 6 - 23 mg/dL Creatinine 1.04 0.50 - 1.30 mg/dL eGFR 82 >60 mL/min/1.73m*2 Calcium 8.4 (L) 8.6 - 10.3 mg/dL Phosphorus 3.6 2.5 - 4.9 mg/dL Albumin 3.3 (L) 3.4 - 5.0 g/dL ECG 12 Lead Result Value Ref Range Ventricular Rate 77 BPM Atrial Rate 77 BPM OH Interval 168 ms QRS Duration 90 ms QT Interval 370 ms QTC Calculation(Bazett) 418 ms P [place] 49 degrees R [place] 26 degrees T [place] -24 degrees QRS Count 12 beats Q Onset 217 ms P Onset 133 ms P Offset 187 ms T Offset 402 ms QTC Fredericia 402 ms POCT GLUCOSE Result Value Ref Range POCT Glucose 106 (H) 74 - 99 mg/dL Lactate Result Value Ref Range Lactate 1.7 0.4 - 2.0 mmol/L Magnesium Result Value Ref Range Magnesium 2.39 1.60 - 2.40 mg/dL Renal Function Panel Result Value Ref Range Glucose 199 (H) 74 - 99 mg/dL Sodium 137 136 - 145 mmol/L Potassium 4.1 3.5 - 5.3 mmol/L Chloride 106 98 - 107 mmol/L Bicarbonate 24 21 - 32 mmol/L Anion Gap 11 10 - 20 mmol/L Urea Nitrogen 15 6 - 23 mg/dL Creatinine 1.11 0.50 - 1.30 mg/dL eGFR 76 >60 mL/min/1.73m*2 Calcium 8.0 (L) 8.6 - 10.3 mg/dL Phosphorus 2.6 2.5 - 4.9 mg/dL Albumin 3.7 3.4 - 5.0 g/dL CBC Result Value Ref Range WBC 13.0 (H) 4.4 - 11.3 x10*3/uL nRBC 0.0 0.0 - 0.0 /100 WBCs RBC 3.24 (L) 4.50 - 5.90 x10*6/uL Hemoglobin 10.0 (L) 13.5 - 17.5 g/dL Hematocrit 29.2 (L) 41.0 - 52.0 % MCV 90 80 - 100 fL MCH 30.9 26.0 - 34.0 pg MCHC 34.2 32.0 - 36.0 g/dL RDW 13.3 11.5 - 14.5 % Platelets 161 150 - 450 x10*3/uL Lactate Result Value Ref Range Lactate 1.6 0.4 - 2.0 mmol/L Calcium, Ionized Result Value Ref Range POCT Calcium, Ionized 1.11 1.1 - 1.33 mmol/L Blood Gas Arterial Full Panel Result Value Ref Range POCT pH, Arterial 7.42 7.38 - 7.42 pH POCT pCO2, Arterial 41 38 - 42 mm Hg POCT pO2, Arterial 131 (H) 85 - 95 mm Hg POCT SO2, Arterial 99 94 - 100 % POCT Oxy Hemoglobin, Arterial 96.6 94.0 - 98.0 % POCT Hematocrit Calculated, Arterial 35.0 (L) 41.0 - 52.0 % POCT Sodium, Arterial 134 (L) 136 - 145 mmol/L POCT Potassium, Arterial 4.1 3.5 - 5.3 mmol/L POCT Chloride, Arterial 105 98 - 107 mmol/L POCT Ionized Calcium, Arterial 1.15 1.10 - 1.33 mmol/L POCT Glucose, Arterial 202 (H) 74 - 99 mg/dL POCT Lactate, Arterial 1.6 0.4 - 2.0 mmol/L POCT Base Excess, Arterial 1.9 -2.0 - 3.0 mmol/L POCT HCO3 Calculated, Arterial 26.6 (H) 22.0 - 26.0 mmol/L POCT Hemoglobin, Arterial 11.5 (L) 13.5 - 17.5 g/dL POCT Anion Gap, Arterial 7 (L) 10 - 25 mmo/L Patient Temperature FiO2 28 % POCT GLUCOSE Result Value Ref Range POCT Glucose 181 (H) 74 - 99 mg/dL POCT GLUCOSE Result Value Ref Range POCT Glucose 123 (H) 74 - 99 mg/dL POCT GLUCOSE Result Value Ref Range POCT Glucose 118 (H) 74 - 99 mg/dL CBC and Auto Differential Result Value Ref Range WBC 11.4 (H) 4.4 - 11.3 x10*3/uL nRBC 0.0 0.0 - 0.0 /100 WBCs RBC 3.26 (L) 4.50 - 5.90 x10*6/uL Hemoglobin 9.9 (L) 13.5 - 17.5 g/dL Hematocrit 29.7 (L) 41.0 - 52.0 % MCV 91 80 - 100 fL MCH 30.4 26.0 - 34.0 pg MCHC 33.3 32.0 - 36.0 g/dL RDW 13.8 11.5 - 14.5 % Platelets 160 150 - 450 x10*3/uL Neutrophils % 72.9 40.0 - 80.0 % Immature Granulocytes %, Automated 0.6 0.0 - 0.9 % Lymphocytes % 15.4 13.0 - 44.0 % Monocytes % 10.7 2.0 - 10.0 % Eosinophils % 0.1 0.0 - 6.0 % Basophils % 0.3 0.0 - 2.0 % Neutrophils Absolute 8.27 (H) 1.20 - 7.70 x10*3/uL Immature Granulocytes Absolute, Automated 0.07 0.00 - 0.70 x10*3/uL Lymphocytes Absolute 1.75 1.20 - 4.80 x10*3/uL Monocytes Absolute 1.22 (H) 0.10 - 1.00 x10*3/uL Eosinophils Absolute 0.01 0.00 - 0.70 x10*3/uL Basophils Absolute 0.03 0.00 - 0.10 x10*3/uL Renal function panel Result Value Ref Range Glucose 117 (H) 74 - 99 mg/dL Sodium 137 136 - 145 mmol/L Potassium 4.7 3.5 - 5.3 mmol/L Chloride 105 98 - 107 mmol/L Bicarbonate 26 21 - 32 mmol/L Anion Gap 11 10 - 20 mmol/L Urea Nitrogen 14 6 - 23 mg/dL Creatinine 1.13 0.50 - 1.30 mg/dL eGFR 74 >60 mL/min/1.73m*2 Calcium 8.1 (L) 8.6 - 10.3 mg/dL Phosphorus 3.0 2.5 - 4.9 mg/dL Albumin 3.6 3.4 - 5.0 g/dL Magnesium Result Value Ref Range Magnesium 2.10 1.60 - 2.40 mg/dL Calcium, ionized Result Value Ref Range POCT Calcium, Ionized 1.08 (L) 1.1 - 1.33 mmol/L ECG 12 Lead Result Value Ref Range Ventricular Rate 88 BPM Atrial Rate 88 BPM OH Interval 142 ms QRS Duration 70 ms QT Interval 334 ms QTC Calculation(Bazett) 404 ms P [place] 12 degrees R [place] 4 degrees T [place] -16 degrees QRS Count 15 beats Q Onset 226 ms P Onset 155 ms P Offset 208 ms T Offset 393 ms QTC Fredericia 379 ms ECG 12 Lead Result Date: 07/26/2023 Normal sinus rhythm Low voltage QRS Inferior infarct (cited on or before 19-JUL-2023) Abnormal ECG When compared with ECG of 25-JUL-2023 15:06, (unconfirmed) Serial changes of evolving Inferior infarct Present XR chest 1 view Result Date: 07/25/2023 Interpreted By: Janet Pate, STUDY: XR CHEST 1 VIEW; 07/25/2023 3:24 pm INDICATION: Signs/Symptoms:Post op cardiac surgery. COMPARISON: 07/25/2023 ACCESSION NUMBER(S): [id number] ORDERING CLINICIAN: DELILAH QUINTERO FINDINGS: The heart size appears normal. There is faint bilateral parenchymal infiltrate and/or atelectasis. There is a left-sided chest tube. The mediastinal drain is present. An endotracheal tube terminates above the belinda. A [place] catheter is present with tip in the region of the main pulmonary artery. There is a question of a nasogastric tube. The tip is not obvious. Sternal wires are present. COMPARISON OF FINDING: The surgery occurred interval since the prior exam Postop changes. Question of basilar infiltrate or atelectasis. A nasogastric tube may be present. The course and location of the tip is uncertain. MACRO: none Signed by: Janet Pate 07/25/2023 4:09 PM Dictation workstation: [id number] Anesthesia Intraoperative Transesophageal Echocardiogram Result Date: 07/25/2023 [place] [id number] TRANSESOPHAGEAL ECHOCARDIOGRAM REPORT Patient Name: ROBERT SMILEY Reading Physician: [id number] Sana Tripp MD Study Date: 07/25/2023 Ordering Provider: [id number] SCAR PECK MRN/PID: [id number] Fellow: Nurse: Date of /Age: 5 1960 / 62 years Complaint Investigations Officer: Yadi AYALA Gender: M Additional Staff: Height: 172.72 cm Admit Date: 07/18/2023 Weight: 102.97 kg Admission Status: Inpatient - Routine BSA / BMI: 2.16 m2 / 34.52 kg/m2 Department Location: [facility] [place] Blood Pressure: 122 /64 mmHg Study Type: ANESTHESIA INTRAOPERATIVE MARCUS Diagnosis/ICD: Atherosclerotic heart disease of [place] coronary artery with other forms of angina pectoris-I25.118 Indication: CAD, PRE/POST CABG CPT Codes: MARCUS Complete-48540 Study Detail: The following Echo studies were performed: 2D, M-Mode, Doppler and color flow. The patient was under general anesthesia. PHYSICIAN INTERPRETATION: MARCUS Details: The MARCUS probe used was [id number]. Color flow Doppler echo was performed to assess for the presence of a patent foramen ovale. MARCUS Medication: The patient was sedated by Anesthesia; please refer to anesthesia flow sheet for medications used. MARCUS Procedure: The probe was passed without difficulty. Left Ventricle: Left ventricular systolic function is normal. Wall motion is abnormal. The left ventricular cavity size is normal. Spectral Doppler shows an impaired relaxation pattern of left ventricular diastolic filling. Left Atrium: The left atrium is normal in size. There is no evidence of a patent foramen ovale. There is a normal sized left atrial appendage. Right Ventricle: The right ventricle is normal in size. There is normal right ventricular global systolic function. Right Atrium: The right atrium is normal in size. Aortic Valve: The aortic valve appears structurally normal. There is mild aortic valve regurgitation. Mitral Valve: The mitral valve is normal in structure. There is moderate mitral valve regurgitation. Tricuspid Valve: The tricuspid valve is structurally normal. There is moderate tricuspid regurgitation. Pulmonic Valve: The pulmonic valve is structurally normal. There is mild pulmonic valve regurgitation. Pericardium: There is a trivial pericardial effusion. Aorta: The aortic root is normal. CONCLUSIONS: 1. Left ventricular systolic function is normal. 2. Spectral Doppler shows an impaired relaxation pattern of left ventricular diastolic filling. 3. Moderate mitral valve regurgitation. 4. Moderate tricuspid regurgitation. 5. Mild aortic valve regurgitation. 6. 2+ MR. 7. 2+ TR. 8. 1-2 + AI. 9. 1+ PI. QUANTITATIVE DATA SUMMARY: M-MODE MEASUREMENTS: Normal Ranges: IVSd: 0.99 cm (0.6-1.1cm) LVPWd: 1.09 cm (0.6-1.1cm) LVIDd: 4.34 cm (3.9-5.9cm) LVIDs: 2.86 cm LV Mass Index: 71.0 g/m2 LV % FS 34.3 % LV SYSTOLIC FUNCTION BY 2D PLANIMETRY (MOD): Normal Ranges: EF-A4C View: 65.6 % (>=55%) EF-A2C View: 65.7 % EF-Biplane: 68.2 % LV DIASTOLIC FUNCTION: Normal Ranges: MV Peak E: 0.76 m/s (0.7-1.2 m/s) MV Peak A: 0.70 m/s (0.42-0.7 m/s) E/A Ratio: 1.09 (1.0-2.2) MITRAL VALVE: Normal Ranges: MV Vmax: 4.90 m/s (<=1.3m/s) MV peak P.0 mmHg (<5mmHg) MV DT: 221 msec (150-240msec) MITRAL INSUFFICIENCY: Normal Ranges: PISA Radius: 0.6 cm MR Vmax: 569.00 cm/s MR Alias Gael: 44.6 cm/s MR Flow Rt: 100.88 ml/s MR EROA: 0.18 cm2 AORTIC INSUFFICIENCY: AI Vmax: 4.11 m/s AI Half-time: 511 msec AI Decel Rate: 225.33 cm/s2 TRICUSPID VALVE/RVSP: Normal Ranges: Peak TR Velocity: 2.95 m/s RV Syst Pressure: 37.8 mmHg (< 30mmHg) [id number] Sana Tripp MD Electronically signed on 07/25/2023 at 3:17:44 PM Final ECG 12 Lead Result Date: 07/25/2023 Normal sinus rhythm Inferior infarct (cited on or before 19-JUL-2023) Abnormal ECG When compared with ECG of 24-JUL-2023 12:44, Serial changes of Inferior infarct Present XR chest 1 view Result Date: 07/25/2023 Interpreted By: Bjorn Sandoval, STUDY: XR CHEST 1 VIEW; 07/25/2023 7:50 am INDICATION: Signs/Symptoms:post line insertion. COMPARISON: 07/19/2023 ACCESSION NUMBER(S): [id number] ORDERING CLINICIAN: SANA TRIPP FINDINGS: Interval placement of a right jugular [place] catheter. Catheter is pointing towards the right likely in the proximal right pulmonary artery. The there is no evidence for right pneumothorax. CARDIOMEDIASTINAL SILHOUETTE: Cardiomediastinal silhouette is normal in size and configuration. LUNGS: Lungs are clear. ABDOMEN: No remarkable upper abdominal findings. BONES: No acute osseous changes. 1. Interval [place] catheter placement tip of the proximal right pulmonary artery as discussed above. No pneumothorax. MACRO: None Signed by: Bjorn Sandoval 07/25/2023 10:38 AM Dictation workstation: [id number] Electrocardiogram, 12-lead Result Date: 07/24/2023 Normal sinus rhythm Possible Inferior infarct (cited on or before 19-JUL-2023) Abnormal ECG When compared with ECG of 23-JUL-2023 06:42, No significant change was found Confirmed by Nadir Moreland ([id number]) on 07/24/2023 9:28:45 PM Scheduled medications acetaminophen, 650 mg, oral, q4h Or acetaminophen, 650 mg, rectal, q4h albumin human, 25 g, intravenous, Once aspirin, 81 mg, oral, Daily atorvastatin, 40 mg, oral, Nightly chlorhexidine, 15 mL, Mouth/Throat, BID insulin lispro, 0-15 Units, subcutaneous, q4h isosorbide mononitrate ER, 30 mg, oral, Daily lidocaine, 1 patch, transdermal, q24h metoprolol tartrate, 25 mg, oral, BID mupirocin, , Topical, BID pantoprazole, 40 mg, oral, Daily pantoprazole, 40 mg, oral, Daily before breakfast Or pantoprazole, 40 mg, intravenous, Daily before breakfast polyethylene glycol, 17 g, oral, Daily vancomycin, 1,500 mg, intravenous, q12h Continuous medications lactated Ringer's, 50 mL/hr, Last Rate: 50 mL/hr (07/25/23 0800) niCARdipine, 2.5-15 mg/hr norepinephrine, 0-1 mcg/kg/min, Last Rate: 0.07 mcg/kg/min (07/26/23 0600) PRN medications PRN medications: acetaminophen OR acetaminophen OR acetaminophen, alum-mag hydroxide-simeth, bisacodyl, bisacodyl, calcium chloride, calcium chloride, dextrose OR glucagon, HYDROmorphone, ipratropium-albuteroL, magnesium sulfate, magnesium sulfate, melatonin, metoclopramide OR metoclopramide, naloxone, niCARdipine, nitroglycerin, oxyCODONE, oxygen, potassium chloride CR OR potassium chloride, potassium chloride Assessment/Plan Principal Problem: Acute myocardial infarction due to left coronary artery occlusion (CMS/HCC) Active Problems: Hyperlipidemia Coronary artery disease of [place] artery of [place] heart with stable angina pectoris (CMS/HCC) Asperger's syndrome Elevated troponin Objective: I have reviewed all medications, laboratory results, and imaging pertinent for today's encounter Assessment/Plan: I am currently managing this critically ill patient for the following problems: Neuro/Psych/Pain Ctrl/Sedation: No history of neurologic deficits. Patient is HARD OF HEARING--> - Serial neuro and pain assessments - Prn Dilaudid for pain until taking PO, then start Tylenol and oxycodone PO - Lidoderm patches x 72 hours - PT - CAM ICU score q shift - Sleep / wake cycle hygeine Respiratory/ENT: No history of pulmonary disease. Currently on 5L NC --> - daily CXR while in ICU - Maintain SpO2 >92% - ABGs prn - IS q1h and OOB to chair Cardiovascular: PMHx of HTN, HLD, CAD Remains on low-dose norepinephrine infusion, 0.07 mcg/kg/min. --> - Continuous EKG and ABP monitoring - Maintain Maps 70-90 mmHg - Volume resuscitate as clinically indicated - Chest tubes to wall suction, anticipate mediastinal removal today, will discuss with CT Surgery - Maintain Pacer at backup, intrinsic NSR currently - continue ASA / statin - no BB until off norepi GI: - stop PPI when eating - Clears this AM then advance to regular - Colace and miralax bowel regimen when able to take PO Renal/Volume Status (Intra & Extravascular): No history of renal disease. Pre-op serum creatinine near 1.2-> - Continue mac catheter for strict I/Os - Goal UOP 0.5 ml/kg/hr - RFP as clinically indicated - Replete electrolytes per CTICU protocol - LR at 50 ml/hr, intermittent boluses guided by clinical assessment and PA pressures Endocrine - Maintain BG <180, insulin per CTICU protocol - glucose at goal Infectious Disease: Afebrile, no current indications of infection --> - Trend temp q4h - Periop Vancomycin x 24hr to finish today Heme/Onc: Acute blood loss anemia and thrombocytopenia. Baseline hemoglobin 15 reop.--> - Trend CBC and coagulation studies - No transfusions since arriving to ICU, HGB 10 this am, attribute drop from admit to volume but will continue to monitor for bleeding. CT output 180 and 225ml. - SCDs for DVT prophylaxis - start SQH after mediastinal CT removed Skin: - no active skin problems Ethics/Code Status: Full Code Automation Driver: DVT Prophylaxis: SQH after mediastinal CT removed GI Prophylaxis: DC PPI once off pressors Bowel Regimen: Yes Diet: Yes CVC: rightIJ introducer with PA catheter, remove PA line, keep introducer Cheryl: Not functioning, remove Mac: yes Restraints: Terence Dispo: ICU Critical Care Time: 60 CHRISTY Stephen DNP [facility] Progress Note Rounding ANTONIO/Fire Hose Curer: Heraclio Benitez MD, Dr. Heraclio Benitez Primary Fire Hose Curer: Dr Horton Date: 07/24/2023 Patient: Robert Smiley Date of : 1960 Admit Date: 07/19/2023 SUBJECTIVE: 07/24/2023: Patient remained stable hemodynamically with sinus rhythm and no significant arrhythmias overnight. Is scheduled for CABG tomorrow 07/23/23: Patient remains in status quo, denies any chest pain or shortness of breath with ambulation. He is awaiting CABG on Tuesday and he continues to maintain sinus rhythm with occasional PVCs. 07/22/23 Patient is awake and alert and oriented x 3 he states that he is not having any chest pain I spoke to him at length he is well-informed of plan of care that we are going to do the CABG on Tuesday answered all of his questions Telemetry is normal sinus rhythm with a Ke lesional PVC 07/21/23 Patient is awake and alert and oriented x 3. States he had a little indigestion this morning spoke to him at length he denies any chest pain or shortness of breath Telemetry is normal sinus rhythm with occasional PVC EKG is normal sinus rhythm has ST depression in inferior 07/20/23 Patient is resting quietly spoke to him at length he discussed at length with CT surgery they are planning for CABG on Tuesday He denies chest pain or shortness of breath Telemetry is normal sinus rhythm with occasional PVCs EKG is normal sinus rhythm no acute change 07/19/23 Robert Smiley is a 62 y.o. male patient who is being at the request of Dr. Salgado for inpatient consultation of angina. He was admitted on 07/19/2023. Previous [facility] and [facility] records have been reviewed in detail. Patient with a history of CAD, hypertension dyslipidemia was transferred from [facility] for CABG evaluation. On Tuesday the patient developed chest pain that radiated down his left arm along with chest pain he went to [facility] they transferred him to [facility] for heart catheterization LAD 95% Circumflex 95% RCA 95 to 99% Patient states they put him on a heparin drip send and will be here for CABG consult. He states he does not have any chest pain, fever, chills, nausea, vomiting, PND, orthopnea, claudications at this present time. He states that he has had a couple stents in the past. /EKG is normal sinus rhythm has ST depression in inferior/ VITALS: Vitals: 07/23/23199907/24/23 0024 07/24/23 0756 07/24/23 1257 BP: 128/59 112/62 130/67 128/59 BP Location: Left arm Patient Position: Lying Pulse: 76 70 65 73 Resp: 18 18 Temp: 36.8 C (98.2 F) 36 C (96.8 F) 36.5 C (97.7 F) TempSrc: SpO2: 95% 95% 96% 96% Weight: Height: Intake/Output Summary (Last 24 hours) at 07/24/2023 1258 Last data filed at 07/23/2023 2100 Gross per 24 hour Intake 240 ml Output -- Net 240 ml Wt Readings from Last 4 Encounters: 07/19/23 106 kg (233 lb 3.2 oz) 07/18/23 108 kg (239 lb) CURRENT HOSPITAL MEDICATIONS: aspirin, 81 mg, oral, Daily atorvastatin, 40 mg, oral, Nightly chlorhexidine, 15 mL, Mouth/Throat, BID isosorbide mononitrate ER, 30 mg, oral, Daily metoprolol tartrate, 25 mg, oral, BID mupirocin, , Topical, BID pantoprazole, 40 mg, oral, Daily heparin, 0-4,000 Units/hr, Last Rate: 1,200 Units/hr (07/24/23 0844) [START ON 07/25/2023] lactated Ringer's, 50 mL/hr Current Outpatient Medications Medication Instructions clopidogrel (PLAVIX) 75 mg, oral, Daily meloxicam (MOBIC) 7.5 mg, oral, Daily, Unsure if dose is correct
PHYSICAL EXAMINATION: GENERAL: Well developed, well nourished, in no acute distress. CHEST: Symmetric and nontender. NEURO/PSYCH: Alert and oriented times three with approppriate behavior and responses. NECK: Supple, no JVD, no bruit. LUNGS: Clear to auscultation bilaterally, normal respiratory effort. HEART: Rate and rhythm regular with no evident murmur, no gallop appreciated. There are no rubs, clicks or heaves. EXTREMITIES: Warm with good color, no clubbing or cyanosis. There is no edema noted. PERIPHERAL VASCULAR: Pulses present and equally palpable; 2+ throughout. LAB DATA: CBC: Results from last 7 days Lab Units 07/24/23 0718 07/22/23 0426 07/20/23 0435 WBC AUTO x10*3/uL 9.7 8.5 9.1 RBC AUTO x10*6/uL 5.08 5.00 4.89 HEMOGLOBIN g/dL 15.5 15.1 15.0 HEMATOCRIT % 45.3 44.3 43.0 MCV fL 89 89 88 MCH pg 30.5 30.2 30.7 MCHC g/dL 34.2 34.1 34.9 RDW % 13.1 13.0 12.8 PLATELETS AUTO x10*3/uL 234 250 254 CMP: Results from last 7 days Lab Units 07/24/2371707/21/2352107/20/23 0435 07/19/23 0600 SODIUM mmol/L 136 137 137 137 POTASSIUM mmol/L 4.0 4.0 4.0 4.0 CHLORIDE mmol/L 105 106 106 104 CO2 mmol/L 22 22 23 26 BUN mg/dL 22 19 20 16 CREATININE mg/dL 1.20 1.07 1.15 1.06 GLUCOSE mg/dL 98 99 97 90 PROTEIN TOTAL g/dL -- -- -- 6.5 CALCIUM mg/dL 9.2 9.2 9.1 8.8 BILIRUBIN TOTAL mg/dL -- -- -- 0.6 ALK PHOS U/L -- -- -- 70 AST U/L -- -- -- 21 ALT U/L -- -- -- 13 BMP: Results from last 7 days Lab Units 07/24/2371707/21/2352107/20/23 0435 SODIUM mmol/L 136 137 137 POTASSIUM mmol/L 4.0 4.0 4.0 CHLORIDE mmol/L 105 106 106 CO2 mmol/L 22 22 23 BUN mg/dL 22 19 20 CREATININE mg/dL 1.20 1.07 1.15 CALCIUM mg/dL 9.2 9.2 9.1 GLUCOSE mg/dL 98 99 97 Magnesium: Results from last 7 days Lab Units 07/24/2371707/21/2352107/20/23 0435 MAGNESIUM mg/dL 2.06 2.01 1.93 Troponin: Results from last 7 days Lab Units 07/19/23 0600 TROPHS ng/L 2,181* BNP: Lipid Panel: Results from last 7 days Lab Units 07/19/23 1543 HDL mg/dL 55.7 CHOLESTEROL/HDL RATIO 3.7 VLDL mg/dL 30 TRIGLYCERIDES mg/dL 148 NON HDL CHOL. mg/dL 150* DIAGNOSTIC TESTING: @No results found for this or any previous visit. ECG 12 Lead Result Date: 07/20/2023 Normal sinus rhythm Possible Inferior infarct (cited on or before 19-JUL-2023) Abnormal ECG When compared with ECG of 19-JUL-2023 07:06, No significant change was found Carotid duplex bilateral Result Date: 07/19/2023 Interpreted By: Hector Smith, STUDY: VAS US CAROTID ARTERY DUPLEX BILATERAL; 07/19/2023 2:38 pm INDICATION: Signs/Symptoms:pre-op CABG; r/o carotid stenosis. COMPARISON: None. ACCESSION NUMBER(S): [id number] ORDERING CLINICIAN: MARYANNE YOU TECHNIQUE: Vascular ultrasound of the extracranial carotid system was performed bilaterally. Griffith scale, color Doppler and spectral Doppler waveform analysis was performed. FINDINGS: RIGHT: On the right There is no evidence of atheromatous plaques in the common carotid arteries, visualized portions of the internal carotid arteries, and the proximal external carotid arteries. Doppler studies demonstrate normal flow pattern without evidence of turbulent flow.. The peak systolic velocities are as follows: RIGHT SIDE PEAK SYSTOLIC VELOCITY TABLE: CCA 116 cm/sec. ICA 58 cm/sec. ECA 105 cm/sec. The ratio of the peak systolic velocity of the right ICA/CCA is 0.5. RIGHT VERTEBRAL ARTERY: The right vertebral artery demonstrates proximal normal anterograde flow LEFT: On the left There is no evidence of atheromatous plaques in the common carotid arteries, visualized portions of the internal carotid arteries, and the proximal external carotid arteries. Doppler studies demonstrate normal flow pattern without evidence of turbulent flow.. The peak systolic velocities are as follows: LEFT SIDE PEAK SYSTOLIC VELOCITY TABLE: CCA 99 cm/sec. ICA 54 cm/sec. ECA 98 cm/sec. The ratio of the peak systolic velocity of the left ICA/CCA is 0.6. LEFT VERTEBRAL ARTERY: The left vertebral artery demonstrates proximal normal anterograde flow Normal flow pattern without evidence of hemodynamically relevant stenosis or atheromatous plaques in the visualized portions of the carotid circulation as described above. MACRO: None Signed by: Hector Smith 07/19/2023 3:43 PM Dictation workstation: [id number] XR chest 2 views Result Date: 07/19/2023 Interpreted By: Hector Simth, STUDY: XR CHEST 2 VIEWS; 07/19/2023 2:08 pm INDICATION: Signs/Symptoms:pre-op CABG. COMPARISON: None. ACCESSION NUMBER(S): [id number] ORDERING CLINICIAN: MARYANNE YOU FINDINGS: CARDIOMEDIASTINAL SILHOUETTE: Cardiomediastinal silhouette is normal in size and configuration. LUNGS: Mild left basilar atelectasis is present. No focal consolidation. No pleural effusion or pneumothorax. ABDOMEN: No remarkable upper abdominal findings. BONES: Multilevel predominantly anterior endplate spurring/partially bridging osteophytes are present in the thoracic spine. 1. Mild left basilar atelectasis. No focal consolidation. MACRO: None. Signed by: Hector Smith 07/19/2023 3:41 PM Dictation workstation: [id number] Transthoracic Echo (TTE) Complete Result Date: 07/19/2023 [place] [address] TRANSTHORACIC ECHOCARDIOGRAM REPORT Patient Name: ROBERT SMILEY Reading Physician: [id number] Dev Ding MD, [facility] Study Date: 07/19/2023 Ordering Provider: [id number] EDUARDO FERRO MRN/PID: [id number] Fellow: Nurse: Mendoza Dowd RN Date of /Age: 5 1960 / 62 years Complaint Investigations Officer: Chloé Lyman RD Gender: M Additional Staff: Height: 172.72 cm Admit Date: 07/18/2023 Weight: 105.69 kg Admission Status: Inpatient - Routine BSA / BMI: 2.18 m2 / 35.43 Department Location: [place] [address] Echo Lab Blood Pressure: 112 /58 mmHg Study Type: TRANSTHORACIC ECHO (TTE) COMPLETE Diagnosis/ICD: Encounter for preprocedural cardiovascular examination-Z01.810 Indication: PRE-OP CABG CPT Codes: Echo Complete w Full Doppler-69024 Patient History: Pertinent History: CAD, Hyperlipidemia and MA. Study Detail: The following Echo studies were performed: 2D, M-Mode, Doppler and color flow. Definity used as a contrast agent for endocardial border definition. Total contrast used for this procedure was 2 mL via IV push. The patient was awake. PHYSICIAN INTERPRETATION: Left Ventricle: Left ventricular systolic function is normal, with an estimated ejection fraction of 55-60%. There are no regional wall motion abnormalities. The left ventricular cavity size is normal. The left ventricular septal wall thickness is mildly increased. There is normal left ventricular posterior wall thickness. Spectral Doppler shows an impaired relaxation pattern of left ventricular diastolic filling. Left Atrium: The left atrium is normal in size. Left atrial volume index 18.5 mL/m2. Right Ventricle: The right ventricle is normal in size. There is normal right ventricular global systolic function. Normal right ventricular chamber size and function. Right Atrium: The right atrium is normal in size. Aortic Valve: The aortic valve was not well visualized. There is mild aortic valve cusp calcification. There is no evidence of aortic valve regurgitation. The peak instantaneous gradient of the aortic valve is 7.8 mmHg. The mean gradient of the aortic valve is 4.0 mmHg. Mitral Valve: The mitral valve is normal in structure. There is trace mitral valve regurgitation. Tricuspid Valve: The tricuspid valve is structurally normal. There is trace tricuspid regurgitation. The right ventricular systolic pressure is unable to be estimated. Trivial tricuspid regurgitation. Pulmonic Valve: The pulmonic valve is structurally normal. There is no indication of pulmonic valve regurgitation. Pericardium: There is a trivial pericardial effusion. Aorta: The aortic root is normal. Systemic Veins: The inferior vena cava appears to be of normal size. There is IVC inspiratory collapse greater than 50%. CONCLUSIONS: 1. Left ventricular systolic function is normal with a 55-60% estimated ejection fraction. 2. Spectral Doppler shows an impaired relaxation pattern of left ventricular diastolic filling. 3. Normal right ventricular chamber size and function. 4. Trivial tricuspid regurgitation. 5. No previous available for comparison. QUANTITATIVE DATA SUMMARY: 2D MEASUREMENTS: Normal Ranges: Ao Root d: 2.90 cm (2.0-3.7cm) LAs: 3.70 cm (2.7-4.0cm) IVSd: 1.20 cm (0.6-1.1cm) LVPWd: 0.93 cm (0.6-1.1cm) LVIDd: 3.80 cm (3.9-5.9cm) LVIDs: 2.60 cm LV Mass Index: 58.8 g/m2 LV % FS 31.6 % LA VOLUME: Normal Ranges: LA Vol A4C: 37.5 ml (22+/-6mL/m2) LA Vol A2C: 40.3 ml LA Vol BP: 41.3 ml LA Vol Index A4C: 17.2ml/m2 LA Vol Index A2C: 18.5 ml/m2 LA Vol Index BP: 19.0 ml/m2 LA Area A4C: 15.7 cm2 LA Area A2C: 15.3 cm2 LA Major [place] A4C: 5.6 cm LA Major [place] A2C: 4.9 cm LA Volume Index: 17.9 ml/m2 RA VOLUME BY A/L METHOD: Normal Ranges: RA Vol A4C: 33.3 ml (8.3-19.5ml) RA Vol Index A4C: 15.3 ml/m2 RA Area A4C: 13.7 cm2 RA Major [place] A4C: 4.8 cm AORTA MEASUREMENTS: Normal Ranges: Asc Ao, d: 3.10 cm (2.1-3.4cm) LV SYSTOLIC FUNCTION BY 2D PLANIMETRY (MOD): Normal Ranges: EF-A4C View: 58.9 % (>=55%) EF-A2C View: 54.9 % EF-Biplane: 58.6 % LV DIASTOLIC FUNCTION: Normal Ranges: MV Peak E: 0.85 m/s (0.7-1.2 m/s) MV Peak A: 0.80 m/s (0.42-0.7 m/s) E/A Ratio: 1.07 (1.0-2.2) MV e' 0.11 m/s (>8.0) MV lateral e' 0.11 m/s MV medial e' 0.09 m/s E/e' Ratio: 7.73 (<8.0) MITRAL VALVE: Normal Ranges: MV DT: 229 msec (150-240msec) AORTIC VALVE: Normal Ranges: AoV Vmax: 1.40 m/s (<=1.7m/s) AoV Peak P.8 mmHg (<20mmHg) AoV Mean P.0 mmHg (1.7-11.5mmHg) LVOT Max Gael: 1.20 m/s (<=1.1m/s) AoV VTI: 24.60 cm (18-25cm) LVOT VTI: 24.30 cm LVOT Diameter: 2.00 cm (1.8-2.4cm) AoV Area, VTI: 3.10 cm2 (2.5-5.5cm2) AoV Area,Vmax: 2.69 cm2 (2.5-4.5cm2) AoV Dimensionless Index: 0.99 RIGHT VENTRICLE: RV Basal 3.11 cm RV Mid 2.26 cm RV Major 7.5 cm TAPSE: 25.4 mm RV s' 0.14 m/s TRICUSPID VALVE/RVSP: Normal Ranges: IVC Diam: 1.65 cm PULMONIC VALVE: Normal Ranges: PV Accel Time: 77 msec (>120ms) PV Max Gael: 1.0 m/s (0.6-0.9m/s) PV Max P.7 mmHg [id number] Dev Ding MD, [facility] Electronically signed on 07/19/2023 at 2:33:[address] chest wo IV contrast Result Date: 07/19/2023 Interpreted By: Hector Smith, STUDY: CT CHEST WO IV CONTRAST; 07/19/2023 1:48 pm INDICATION: Signs/Symptoms:pre-op CABG; please assess ascending aorta for atherosclerosis and size. COMPARISON: None. ACCESSION NUMBER(S): [id number] ORDERING CLINICIAN: MARYANNE YOU TECHNIQUE: Contiguous unenhanced axial images were obtained through the chest. Images were reformatted in axial, coronal, and sagittal planes. FINDINGS: LUNGS and AIRWAYS: Small bands of subsegmental atelectasis or scar are present in the left lower lobe anteriorly as well as the lingula. Mild dependent atelectasis present bilaterally. No focal consolidation. No pleural effusion or pneumothorax. MEDIASTINUM and LITO, LOWER NECK AND AXILLA: No mediastinal or hilar lymphadenopathy is seen. No axillary lymphadenopathy. HEART and VESSELS: There is no thoracic aortic aneurysm. Ascending thoracic aorta is uniform in caliber measuring approximately 3.1 x 3.1 cm in transverse and AP diameters. Small irregular calcifications are seen at the aortic root level. No additional calcification is seen in the ascending thoracic aorta. Small atherosclerotic calcification is seen in the distal aortic arch. Descending thoracic aorta is uniform in caliber measuring 2.4 cm in diameter. Coronary artery calcifications and/or stents are present. No pericardial effusion. Heart is not significantly enlarged. UPPER ABDOMEN: Gallbladder is not abnormally distended and contains mixed attenuation gallstone in the dependent portion toward the base. No pericholecystic inflammation is seen. No biliary dilation. CHEST WALL and OSSEOUS STRUCTURES: There is mild S-shaped scoliosis of the thoracic spine. Multilevel disc space narrowing and predominantly anterior endplate spurring/partially bridging osteophytes are most prominent in the mid-lower thoracic spine. 1. No thoracic aortic aneurysm. Ascending thoracic aorta measures 3.1 cm in diameter. 2. Irregular calcification at the aortic root level. No evidence of calcification in the ascending thoracic aorta. 3. Cholelithiasis. No pericholecystic inflammation. No biliary dilation. MACRO: None. Signed by: Hector Smith 07/19/2023 2:09 PM Dictation workstation: [id number] ECG 12 lead Result Date: 07/19/2023 Normal sinus rhythm Possible Inferior infarct , age undetermined Abnormal ECG No previous ECGs available Confirmed by Courtney Shrestha ([id number]) on 07/19/2023 7:31:32 AM Carotid duplex bilateral Final Result Normal flow pattern without evidence of hemodynamically relevant stenosis or atheromatous plaques in the visualized portions of the carotid circulation as described above. MACRO: None Signed by: Hector Smith 07/19/2023 3:43 PM Dictation workstation: [id number] XR chest 2 views Final Result 1. Mild left basilar atelectasis. No focal consolidation. MACRO: None. Signed by: Hector Smith 07/19/2023 3:41 PM Dictation workstation: [id number] CT chest wo IV contrast Final Result 1. No thoracic aortic aneurysm. Ascending thoracic aorta measures 3.1 cm in diameter. 2. Irregular calcification at the aortic root level. No evidence of calcification in the ascending thoracic aorta. 3. Cholelithiasis. No pericholecystic inflammation. No biliary dilation. MACRO: None. Signed by: Hector Smith 07/19/2023 2:09 PM Dictation workstation: [id number] Transthoracic Echo (TTE) Complete Final Result Transthoracic Echo (TTE) Complete Result Date: 07/19/2023 [place] [address] TRANSTHORACIC ECHOCARDIOGRAM REPORT Patient Name: ROBERT SMILEY Reading Physician: [id number] Dev Ding MD, [facility] Study Date: 07/19/2023 Ordering Provider: [id number] EDUARDO HERR/PID: [id number] Fellow: Nurse: Mendoza Dowd RN Date of /Age: 5 1960 / 62 years Complaint Investigations Officer: Chloé Lyman RDCS Gender: M Additional Staff: Height: 172.72 cm Admit Date: 07/18/2023 Weight: 105.69 kg Admission Status: Inpatient - Routine BSA / BMI: 2.18 m2 / 35.43 Department Location: [facility]/m2 Echo Lab Blood Pressure: 112 /58 mmHg Study Type: TRANSTHORACIC ECHO (TTE) COMPLETE Diagnosis/ICD: Encounter for preprocedural cardiovascular examination-Z01.810 Indication: PRE-OP CABG CPT Codes: Echo Complete w Full Doppler-31629 Patient History: Pertinent History: CAD, Hyperlipidemia and MA. Study Detail: The following Echo studies were performed: 2D, M-Mode, Doppler and color flow. Definity used as a contrast agent for endocardial border definition. Total contrast used for this procedure was 2 mL via IV push. The patient was awake. PHYSICIAN INTERPRETATION: Left Ventricle: Left ventricular systolic function is normal, with an estimated ejection fraction of 55-60%. There are no regional wall motion abnormalities. The left ventricular cavity size is normal. The left ventricular septal wall thickness is mildly increased. There is normal left ventricular posterior wall thickness. Spectral Doppler shows an impaired relaxation pattern of left ventricular diastolic filling. Left Atrium: The left atrium is normal in size. Left atrial volume index 18.5 mL/m2. Right Ventricle: The right ventricle is normal in size. There is normal right ventricular global systolic function. Normal right ventricular chamber size and function. Right Atrium: The right atrium is normal in size. Aortic Valve: The aortic valve was not well visualized. There is mild aortic valve cusp calcification. There is no evidence of aortic valve regurgitation. The peak instantaneous gradient of the aortic valve is 7.8 mmHg. The mean gradient of the aortic valve is 4.0 mmHg. Mitral Valve: The mitral valve is normal in structure. There is trace mitral valve regurgitation. Tricuspid Valve: The tricuspid valve is structurally normal. There is trace tricuspid regurgitation. The right ventricular systolic pressure is unable to be estimated. Trivial tricuspid regurgitation. Pulmonic Valve: The pulmonic valve is structurally normal. There is no indication of pulmonic valve regurgitation. Pericardium: There is a trivial pericardial effusion. Aorta: The aortic root is normal. Systemic Veins: The inferior vena cava appears to be of normal size. There is IVC inspiratory collapse greater than 50%. CONCLUSIONS: 1. Left ventricular systolic function is normal with a 55-60% estimated ejection fraction. 2. Spectral Doppler shows an impaired relaxation pattern of left ventricular diastolic filling. 3. Normal right ventricular chamber size and function. 4. Trivial tricuspid regurgitation. 5. No previous available for comparison. QUANTITATIVE DATA SUMMARY: 2D MEASUREMENTS: Normal Ranges: Ao Root d: 2.90 cm (2.0-3.7cm) LAs: 3.70 cm (2.7-4.0cm) IVSd: 1.20 cm (0.6-1.1cm) LVPWd: 0.93 cm (0.6-1.1cm) LVIDd: 3.80 cm (3.9-5.9cm) LVIDs: 2.60 cm LV Mass Index: 58.8 g/m2 LV % FS 31.6 % LA VOLUME: Normal Ranges: LA Vol A4C: 37.5 ml (22+/-6mL/m2) LA Vol A2C: 40.3 ml LA Vol BP: 41.3 ml LA Vol Index A4C: 17.2ml/m2 LA Vol Index A2C: 18.5 ml/m2 LA Vol Index BP: 19.0 ml/m2 LA Area A4C: 15.7 cm2 LA Area A2C: 15.3 cm2 LA Major [place] A4C: 5.6 cm LA Major [place] A2C: 4.9 cm LA Volume Index: 17.9 ml/m2 RA VOLUME BY A/L METHOD: Normal Ranges: RA Vol A4C: 33.3 ml (8.3-19.5ml) RA Vol Index A4C: 15.3 ml/m2 RA Area A4C: 13.7 cm2 RA Major [place] A4C: 4.8 cm AORTA MEASUREMENTS: Normal Ranges: Asc Ao, d: 3.10 cm (2.1-3.4cm) LV SYSTOLIC FUNCTION BY 2D PLANIMETRY (MOD): Normal Ranges: EF-A4C View: 58.9 % (>=55%) EF-A2C View: 54.9 % EF-Biplane: 58.6 % LV DIASTOLIC FUNCTION: Normal Ranges: MV Peak E: 0.85 m/s (0.7-1.2 m/s) MV Peak A: 0.80 m/s (0.42-0.7 m/s) E/A Ratio: 1.07 (1.0-2.2) MV e' 0.11 m/s (>8.0) MV lateral e' 0.11 m/s MV medial e' 0.09 m/s E/e' Ratio: 7.73 (<8.0) MITRAL VALVE: Normal Ranges: MV DT: 229 msec (150-240msec) AORTIC VALVE: Normal Ranges: AoV Vmax: 1.40 m/s (<=1.7m/s) AoV Peak P.8 mmHg (<20mmHg) AoV Mean P.0 mmHg (1.7-11.5mmHg) LVOT Max Gael: 1.20 m/s (<=1.1m/s) AoV VTI: 24.60 cm (18-25cm) LVOT VTI: 24.30 cm LVOT Diameter: 2.00 cm (1.8-2.4cm) AoV Area, VTI: 3.10 cm2 (2.5-5.5cm2) AoV Area,Vmax: 2.69 cm2 (2.5-4.5cm2) AoV Dimensionless Index: 0.99 RIGHT VENTRICLE: RV Basal 3.11 cm RV Mid 2.26 cm RV Major 7.5 cm TAPSE: 25.4 mm RV s' 0.14 m/s TRICUSPID VALVE/RVSP: Normal Ranges: IVC Diam: 1.65 cm PULMONIC VALVE: Normal Ranges: PV Accel Time: 77 msec (>120ms) PV Max Gael: 1.0 m/s (0.6-0.9m/s) PV Max P.7 mmHg [id number] Dev Ding MD, FACC Electronically signed on 07/19/2023 at 2:33:57 PM Final RADIOLOGY: Carotid duplex bilateral Final Result Normal flow pattern without evidence of hemodynamically relevant stenosis or atheromatous plaques in the visualized portions of the carotid circulation as described above. MACRO: None Signed by: Hector Smith 07/19/2023 3:43 PM Dictation workstation: [id number] XR chest 2 views Final Result 1. Mild left basilar atelectasis. No focal consolidation. MACRO: None. Signed by: Hector Smith 07/19/2023 3:41 PM Dictation workstation: [id number] CT chest wo IV contrast Final Result 1. No thoracic aortic aneurysm. Ascending thoracic aorta measures 3.1 cm in diameter. 2. Irregular calcification at the aortic root level. No evidence of calcification in the ascending thoracic aorta. 3. Cholelithiasis. No pericholecystic inflammation. No biliary dilation. MACRO: None. Signed by: Hector Smith 07/19/2023 2:09 PM Dictation workstation: [id number] Transthoracic Echo (TTE) Complete Final Result PROBLEM LIST Patient Active Problem List Diagnosis Acute myocardial infarction due to left coronary artery occlusion (CMS/HCC) Hyperlipidemia Coronary artery disease of [place] artery of [place] heart with stable angina pectoris (CMS/HCC) Asperger's syndrome Elevated troponin ASSESSMENT: CAD triple-vessel disease Hypertension Dyslipidemia PLAN: Patient seen and examined in conjunction with Troy Ferro APRN and agree with the evaluation as noted above. 62-year-old gentleman who was transferred from [facility] for possible angina. He has a history of CAD hypertension dyslipidemia and presented to the hospital with unstable angina with radiation to the left arm. Emergent cardiac catheterization showed severe triple-vessel disease as noted above with 95% LAD, left circumflex as well as RCA. Patient was transferred for CABG. He is currently chest pain-free. EKG shows sinus rhythm with inferolateral ST depression. Cardiac exam reveals regular first and second heart sound, no murmurs are heard. Chest is clear to auscultation. ASSESSMENT AND PLAN: 1. CAD: With severe triple-vessel disease, awaiting cardiac evaluation. In the meantime, we will get an echocardiogram to rule out any significant valvular abnormalities and we will hold his Plavix for impending surgery. Full recommendations to be based on CV surgical evaluation. 2.Hypertension: We will continue to optimize blood pressure control. 3. Dyslipidemia: Continue with her current high intensity lipid-lowering therapy. DUSTIN 07/20/23 Tele monitoring Continue the heparin drip Plan for CABG on Tuesday Daily EKGs Further recommendations per Dr Emmanuel Ferro [facility] Of note, this documentation is completed using the [employer] system (voice recognition software). There may be spelling and/or grammatical errors that were not corrected prior to final submission. Please do not hesitate to call with questions. Patient seen and examined in conjunction with Troy Ferro APRN and agree with the evaluation as noted above. Patient remains in status quo, continues to be chest pain-free. He is awaiting CABG tentatively scheduled for next week Tuesday pending washout of Plavix. Preop echo shows normal LV function with no gross valvular abnormalities as noted above. Will continue with her other current cardiac medications and plan for surgery as scheduled. AKBeatriz 07/21/23 Tele monitoring Aspirin 81 mg daily Lipitor 40 mg daily Imdur 30 mg daily Lopressor 25 mg p.o. twice daily Continue the heparin drip Plan for CABG on Tuesday Further recommendations per Dr Benitez Patient seen and examined in conjunction with Troy Ferro APRN and agree with the evaluation as noted above. Patient continues to do well with no recurrent chest pain. Awaiting surgery as scheduled. Continues to maintain sinus rhythm with no significant arrhythmias on the monitor. Will continue current cardiac medications and follow the patient postoperatively. AKA 07/22/23 Tele monitoring Continue the heparin drip for now Plan for CABG on Tuesday Further recommendations per Dr Benitez 07/23/23: Patient continues to do well and remains in status quo with no chest pain or shortness of breath with ambulation. Awaiting CABG on Tuesday as scheduled. We will continue with current medications and follow the patient postoperatively. AKA 07/24/23 Patient continues to do well with no recurrent chest pain or significant shortness of breath. He is awaiting CABG scheduled for tomorrow we will continue with current medications and follow the patient postoperatively. AKA Robert Smiley is a 62 y.o. male on day 5 of admission presenting with Acute myocardial infarction due to left coronary artery occlusion ([facility]). Subjective No acute overnight events. This morning is afebrile, maintaining sinus rhythm, normotensive with adequate saturations on room air. IV heparin continues to infuse with therapeutic assays. No reports of chest pain at rest or with activity, ambulating in room liberally. No other systemic complaints. Routine preoperative orders including type and cross for 4 units PRBCs, 2 units platelets, surgical prophylaxis with vancomycin, Bactroban and chlorhexidine shower have been implemented. Patient is n.p.o. after midnight except for medications, IV heparin to be discontinued at 4 AM. Plan for surgical revascularization in AM. Objective Physical Exam Constitutional: General: He is not in acute distress. HENT: Head: Normocephalic. Nose: Nose normal. Mouth/Throat: Mouth: Mucous membranes are moist. Eyes: Pupils: Pupils are equal, round, and reactive to light. Cardiovascular: Rate and Rhythm: Normal rate and regular rhythm. Pulses: Normal pulses. Heart sounds: Normal heart sounds. Pulmonary: Effort: Pulmonary effort is normal. Breath sounds: Normal breath sounds. Abdominal: General: Bowel sounds are normal. Genitourinary: Comments: Voiding clear yellow Musculoskeletal: General: Normal range of motion. Cervical back: Normal range of motion. Right lower leg: Edema present. Left lower leg: No edema. Skin: General: Skin is warm and dry. Neurological: General: No focal deficit present. Mental Status: He is alert and oriented to person, place, and time. Psychiatric: Mood and Affect: Mood normal. Last Recorded Vitals Blood pressure 130/67, pulse 65, temperature 36 C (96.8 F), resp. rate 18, height 1.727 m (5' 8 ), weight 106 kg (233 lb 3.2 oz), SpO2 96 %. Intake/Output last 3 Shifts: I/O last 3 completed shifts: In: 240 (2.3 mL/kg) [P.O.:240] Out: - (0 mL/kg) Weight: 105.8 kg Relevant Results Scheduled medications aspirin, 81 mg, oral, Daily atorvastatin, 40 mg, oral, Nightly chlorhexidine, 15 mL, Mouth/Throat, BID isosorbide mononitrate ER, 30 mg, oral, Daily metoprolol tartrate, 25 mg, oral, BID mupirocin, , Topical, BID pantoprazole, 40 mg, oral, Daily Continuous medications heparin, 0-4,000 Units/hr, Last Rate: 1,200 Units/hr (07/24/2344) [START ON 07/25/2023] lactated Ringer's, 50 mL/hr PRN medications PRN medications: acetaminophen OR acetaminophen OR acetaminophen, alum-mag hydroxide-simeth, heparin, melatonin, nitroglycerin, ondansetron OR ondansetron, polyethylene glycol Results for orders placed or performed during the hospital encounter of 07/19/23 (from the past 24 hour(s)) Magnesium Result Value Ref Range Magnesium 2.06 1.60 - 2.40 mg/dL Basic Metabolic Panel Result Value Ref Range Glucose 98 74 - 99 mg/dL Sodium 136 136 - 145 mmol/L Potassium 4.0 3.5 - 5.3 mmol/L Chloride 105 98 - 107 mmol/L Bicarbonate 22 21 - 32 mmol/L Anion Gap 13 10 - 20 mmol/L Urea Nitrogen 22 6 - 23 mg/dL Creatinine 1.20 0.50 - 1.30 mg/dL eGFR 69 >60 mL/min/1.73m*2 Calcium 9.2 8.6 - 10.3 mg/dL CBC Result Value Ref Range WBC 9.7 4.4 - 11.3 x10*3/uL nRBC 0.0 0.0 - 0.0 /100 WBCs RBC 5.08 4.50 - 5.90 x10*6/uL Hemoglobin 15.5 13.5 - 17.5 g/dL Hematocrit 45.3 41.0 - 52.0 % MCV 89 80 - 100 fL MCH 30.5 26.0 - 34.0 pg MCHC 34.2 32.0 - 36.0 g/dL RDW 13.1 11.5 - 14.5 % Platelets 234 150 - 450 x10*3/uL Heparin Assay Result Value Ref Range Heparin Unfractionated 0.5 See Comment Below for Therapeutic Ranges IU/mL ECG 12 Lead Result Date: 07/24/2023 Normal sinus rhythm Inferior infarct (cited on or before 19-JUL-2023) Abnormal ECG When compared with ECG of 22-JUL-2023 06:48, No significant change was found Confirmed by Nadir Moreland ([id number]) on 07/24/2023 9:46:59 AM Assessment/Plan Principal Problem: Acute myocardial infarction due to left coronary artery occlusion (CMS/HCC) Active Problems: Hyperlipidemia Coronary artery disease of [place] artery of [place] heart with stable angina pectoris (CMS/HCC) Luna's syndrome Elevated troponin CAD; NSTEMI Hx of CAD s/p PCI x2 (2016) maintained on Plavix since (last dose 07/18). Presented to OSH c/o midsternal CP that woke him from sleep. Ruled in as NSTEMI. Underwent coronary angiogram revealing diffuse TVD. Pt transferred to [facility] for consideration of surgical revascularization. -Discussed with Dr. Peck -For CABG Monday 07/24 (to allow for Plavix washout), routine preoperative orders including type and cross for 4 units of PRBCs, 2 units platelets, surgical prophylaxis with vancomycin, Bactroban, and chlorhexidine shower have been implemented -N.p.o. after midnight, IV heparin to be discontinued at 4 AM -Medical management per Cardiology; appreciate assistance -ASA and Statin daily -Hold Plavix; will need resumed post operatively for ACS/NSTEMI -Metoprolol 25mg BID -Imdur 30mg daily -IS education -Activity as tolerated HTN; HLD -Statin daily -Metoprolol 25mg BID -Imdur 30mg daily -optimize medical management as hemodynamics allow I spent 45 minutes in the professional and overall care of this patient. CHRISTY Evans ASSESSMENT & PLAN: NSTEMI Hx of CAD s/p PCI (2017) HTN DLD -p/w anginal CP to OSH, found to have NSTEMI, cath showed diffuse triple vessel disease, and transferred to [facility] for CABG eval -TTE here showed normal LVEF, no RWMA, no sig valvulopathy Plan: -CTS following, tentative plan for CABG on Tue as needs x5d Plavix washout (last dose 07/17), preoperative testing done -cardiology following -ASA, high intensity statin, hold Plavix\ -hep gtt -metoprolol, Imdur -tele monitoring Vte ppx already on hep gtt Attila Salgado MD SUBJECTIVE NAEON. No complaints. Surgery tomorrow. OBJECTIVE: Last Recorded Vitals: Vitals: 07/23/23 1530 07/23/23199907/24/23 0024 07/24/23 0756 BP: 114/59 128/59 112/62 130/67 BP Location: Left arm Patient Position: Lying Pulse: 71 76 70 65 Resp: 18 18 Temp: 36.9 C (98.4 F) 36.8 C (98.2 F) 36 C (96.8 F) TempSrc: SpO2: 94% 95% 95% 96% Weight: Height: Last I/O: I/O last 3 completed shifts: In: 240 (2.3 mL/kg) [P.O.:240] Out: - (0 mL/kg) Weight: 105.8 kg Physical Exam: GEN: healthy appearing, appears stated age, NAD CV: RRR, no m/r/g, no LE edema LUNGS: CTAB, no w/r/c ABD: soft, NT, ND, NBS SKIN: no rashes MSK; no gross deformities, normal joints NEURO: A+Ox3, no FND PSYCH: appropriate mood, affect Inpatient Medications: aspirin, 81 mg, oral, Daily atorvastatin, 40 mg, oral, Nightly isosorbide mononitrate ER, 30 mg, oral, Daily metoprolol tartrate, 25 mg, oral, BID pantoprazole, 40 mg, oral, Daily PRN Medications PRN medications: acetaminophen OR acetaminophen OR acetaminophen, alum-mag hydroxide-simeth, heparin, melatonin, nitroglycerin, ondansetron OR ondansetron, polyethylene glycol Continuous Medications: heparin, 0-4,000 Units/hr, Last Rate: 1,200 Units/hr (07/24/23 0844) LABS AND IMAGING: Labs: Results for orders placed or performed during the hospital encounter of 07/19/23 (from the past 24 hour(s)) Magnesium Result Value Ref Range Magnesium 2.06 1.60 - 2.40 mg/dL Basic Metabolic Panel Result Value Ref Range Glucose 98 74 - 99 mg/dL Sodium 136 136 - 145 mmol/L Potassium 4.0 3.5 - 5.3 mmol/L Chloride 105 98 - 107 mmol/L Bicarbonate 22 21 - 32 mmol/L Anion Gap 13 10 - 20 mmol/L Urea Nitrogen 22 6 - 23 mg/dL Creatinine 1.20 0.50 - 1.30 mg/dL eGFR 69 >60 mL/min/1.73m*2 Calcium 9.2 8.6 - 10.3 mg/dL CBC Result Value Ref Range WBC 9.7 4.4 - 11.3 x10*3/uL nRBC 0.0 0.0 - 0.0 /100 WBCs RBC 5.08 4.50 - 5.90 x10*6/uL Hemoglobin 15.5 13.5 - 17.5 g/dL Hematocrit 45.3 41.0 - 52.0 % MCV 89 80 - 100 fL MCH 30.5 26.0 - 34.0 pg MCHC 34.2 32.0 - 36.0 g/dL RDW 13.1 11.5 - 14.5 % Platelets 234 150 - 450 x10*3/uL Heparin Assay Result Value Ref Range Heparin Unfractionated 0.5 See Comment Below for Therapeutic Ranges IU/mL Imaging: ECG 12 Lead Normal sinus rhythm Inferior infarct (cited on or before 19-JUL-2023) Abnormal ECG When compared with ECG of 22-JUL-2023 06:48, No significant change was found [facility] Progress Note Rounding ANTONIO/Fire Hose Curer: Heraclio Benitez MD, Dr. Heraclio Benitez Primary Fire Hose Curer: Dr Horton Date: 07/23/2023 Patient: Robert Smiley Date of : 1960 Admit Date: 07/19/2023 SUBJECTIVE: 07/23/23: Patient remains in status quo, denies any chest pain or shortness of breath with ambulation. He is awaiting CABG on Tuesday and he continues to maintain sinus rhythm with occasional PVCs. 07/22/23 Patient is awake and alert and oriented x 3 he states that he is not having any chest pain I spoke to him at length he is well-informed of plan of care that we are going to do the CABG on Tuesday answered all of his questions Telemetry is normal sinus rhythm with a Ke lesional PVC 07/21/23 Patient is awake and alert and oriented x 3. States he had a little indigestion this morning spoke to him at length he denies any chest pain or shortness of breath Telemetry is normal sinus rhythm with occasional PVC EKG is normal sinus rhythm has ST depression in inferior 07/20/23 Patient is resting quietly spoke to him at length he discussed at length with CT surgery they are planning for CABG on Tuesday He denies chest pain or shortness of breath Telemetry is normal sinus rhythm with occasional PVCs EKG is normal sinus rhythm no acute change 07/19/23 Robert Smiley is a 62 y.o. male patient who is being at the request of Dr. Salgado for inpatient consultation of angina. He was admitted on 07/19/2023. Previous [facility] and [facility] records have been reviewed in detail. Patient with a history of CAD, hypertension dyslipidemia was transferred from [facility] for CABG evaluation. On Tuesday the patient developed chest pain that radiated down his left arm along with chest pain he went to [facility] they transferred him to [facility] for heart catheterization LAD 95% Circumflex 95% RCA 95 to 99% Patient states they put him on a heparin drip send and will be here for CABG consult. He states he does not have any chest pain, fever, chills, nausea, vomiting, PND, orthopnea, claudications at this present time. He states that he has had a couple stents in the past. EKG is normal sinus rhythm has ST depression in inferior VITALS: Vitals: 07/22/23 2000 07/23/23 0026 07/23/23 0800 07/23/23 1530 BP: 111/57 127/81 120/59 114/59 BP Location: Left arm Patient Position: Lying Pulse: 71 72 66 71 Resp: 12 16 18 Temp: 36.9 C (98.4 F) 36.8 C (98.2 F) 36.2 C (97.2 F) 36.9 C (98.4 F) TempSrc: Temporal SpO2: 94% 95% 94% 94% Weight: Height: No intake or output data in the 24 hours ending 07/23/23 1725 Wt Readings from Last 4 Encounters: 07/19/23 106 kg (233 lb 3.2 oz) 07/18/23 108 kg (239 lb) CURRENT HOSPITAL MEDICATIONS: aspirin, 81 mg, oral, Daily atorvastatin, 40 mg, oral, Nightly isosorbide mononitrate ER, 30 mg, oral, Daily metoprolol tartrate, 25 mg, oral, BID pantoprazole, 40 mg, oral, Daily heparin, 0-4,000 Units/hr, Last Rate: 12 Units/hr (07/23/23 1249) Current Outpatient Medications Medication Instructions clopidogrel (PLAVIX) 75 mg, oral, Daily meloxicam (MOBIC) 7.5 mg, oral, Daily, Unsure if dose is correct
PHYSICAL EXAMINATION: GENERAL: Well developed, well nourished, in no acute distress. CHEST: Symmetric and nontender. NEURO/PSYCH: Alert and oriented times three with approppriate behavior and responses. NECK: Supple, no JVD, no bruit. LUNGS: Clear to auscultation bilaterally, normal respiratory effort. HEART: Rate and rhythm regular with no evident murmur, no gallop appreciated. There are no rubs, clicks or heaves. EXTREMITIES: Warm with good color, no clubbing or cyanosis. There is no edema noted. PERIPHERAL VASCULAR: Pulses present and equally palpable; 2+ throughout. LAB DATA: CBC: Results from last 7 days Lab Units 07/22/23 0426 07/20/23 0435 07/19/23 0600 WBC AUTO x10*3/uL 8.5 9.1 7.5 RBC AUTO x10*6/uL 5.00 4.89 5.00 HEMOGLOBIN g/dL 15.1 15.0 15.1 HEMATOCRIT % 44.3 43.0 44.3 MCV fL 89 88 89 MCH pg 30.2 30.7 30.2 MCHC g/dL 34.1 34.9 34.1 RDW % 13.0 12.8 12.8 PLATELETS AUTO x10*3/uL 250 254 248 CMP: Results from last 7 days Lab Units 07/21/23 0522 07/20/23 0435 07/19/23 0600 SODIUM mmol/L 137 137 137 POTASSIUM mmol/L 4.0 4.0 4.0 CHLORIDE mmol/L 106 106 104 CO2 mmol/L 22 23 26 BUN mg/dL 19 20 16 CREATININE mg/dL 1.07 1.15 1.06 GLUCOSE mg/dL 99 97 90 PROTEIN TOTAL g/dL -- -- 6.5 CALCIUM mg/dL 9.2 9.1 8.8 BILIRUBIN TOTAL mg/dL -- -- 0.6 ALK PHOS U/L -- -- 70 AST U/L -- -- 21 ALT U/L -- -- 13 BMP: Results from last 7 days Lab Units 07/21/23 0507/20/23 04307/19/23 0600 SODIUM mmol/L 137 137 137 POTASSIUM mmol/L 4.0 4.0 4.0 CHLORIDE mmol/L 106 106 104 CO2 mmol/L 22 23 26 BUN mg/dL 19 20 16 CREATININE mg/dL 1.07 1.15 1.06 CALCIUM mg/dL 9.2 9.1 8.8 GLUCOSE mg/dL 99 97 90 Magnesium: Results from last 7 days Lab Units 07/21/23 0507/20/23 04307/19/23 06 MAGNESIUM mg/dL 2.01 1.93 1.98 Troponin: Results from last 7 days Lab Units 07/19/23 0600 TROPHS ng/L 2,181* BNP: Lipid Panel: Results from last 7 days Lab Units 07/19/23 1543 HDL mg/dL 55.7 CHOLESTEROL/HDL RATIO 3.7 VLDL mg/dL 30 TRIGLYCERIDES mg/dL 148 NON HDL CHOL. mg/dL 150* DIAGNOSTIC TESTING: @No results found for this or any previous visit. ECG 12 Lead Result Date: 07/20/2023 Normal sinus rhythm Possible Inferior infarct (cited on or before 19-JUL-2023) Abnormal ECG When compared with ECG of 19-JUL-2023 07:06, No significant change was found Carotid duplex bilateral Result Date: 07/19/2023 Interpreted By: Hector Smith, STUDY: [facility] US CAROTID ARTERY DUPLEX BILATERAL; 07/19/2023 2:38 pm INDICATION: Signs/Symptoms:pre-op CABG; r/o carotid stenosis. COMPARISON: None. ACCESSION NUMBER(S): [id number] ORDERING CLINICIAN: MARYANNE YOU TECHNIQUE: Vascular ultrasound of the extracranial carotid system was performed bilaterally. Griffith scale, color Doppler and spectral Doppler waveform analysis was performed. FINDINGS: RIGHT: On the right There is no evidence of atheromatous plaques in the common carotid arteries, visualized portions of the internal carotid arteries, and the proximal external carotid arteries. Doppler studies demonstrate normal flow pattern without evidence of turbulent flow.. The peak systolic velocities are as follows: RIGHT SIDE PEAK SYSTOLIC VELOCITY TABLE: CCA 116 cm/sec. ICA 58 cm/sec. ECA 105 cm/sec. The ratio of the peak systolic velocity of the right ICA/CCA is 0.5. RIGHT VERTEBRAL ARTERY: The right vertebral artery demonstrates proximal normal anterograde flow LEFT: On the left There is no evidence of atheromatous plaques in the common carotid arteries, visualized portions of the internal carotid arteries, and the proximal external carotid arteries. Doppler studies demonstrate normal flow pattern without evidence of turbulent flow.. The peak systolic velocities are as follows: LEFT SIDE PEAK SYSTOLIC VELOCITY TABLE: CCA 99 cm/sec. ICA 54 cm/sec. ECA 98 cm/sec. The ratio of the peak systolic velocity of the left ICA/CCA is 0.6. LEFT VERTEBRAL ARTERY: The left vertebral artery demonstrates proximal normal anterograde flow Normal flow pattern without evidence of hemodynamically relevant stenosis or atheromatous plaques in the visualized portions of the carotid circulation as described above. MACRO: None Signed by: Hector Smith 07/19/2023 3:43 PM Dictation workstation: [id number] XR chest 2 views Result Date: 07/19/2023 Interpreted By: Hector Smith, STUDY: XR CHEST 2 VIEWS; 07/19/2023 2:08 pm INDICATION: Signs/Symptoms:pre-op CABG. COMPARISON: None. ACCESSION NUMBER(S): [id number] ORDERING CLINICIAN: MARYANNE YOU FINDINGS: CARDIOMEDIASTINAL SILHOUETTE: Cardiomediastinal silhouette is normal in size and configuration. LUNGS: Mild left basilar atelectasis is present. No focal consolidation. No pleural effusion or pneumothorax. ABDOMEN: No remarkable upper abdominal findings. BONES: Multilevel predominantly anterior endplate spurring/partially bridging osteophytes are present in the thoracic spine. 1. Mild left basilar atelectasis. No focal consolidation. MACRO: None. Signed by: Hector Smith 07/19/2023 3:41 PM Dictation workstation: [id number] Transthoracic Echo (TTE) Complete Result Date: 07/19/[address] [address] TRANSTHORACIC ECHOCARDIOGRAM REPORT Patient Name: ROBERT SMILEY Reading Physician: [id number] Ding MD, [facility] Study Date: 07/19/2023 Ordering Provider: [id number] EDUARDO FERRO MRN/PID: [id number] Fellow: Nurse: Mendoza Dowd RN Date of /Age: 5 1960 / 62 years Complaint Investigations Officer: Chloé Lyman RDCS Gender: M Additional Staff: Height: 172.72 cm Admit Date: 07/18/2023 Weight: 105.69 kg Admission Status: Inpatient - Routine BSA / BMI: 2.18 m2 / 35.43 Department Location: [place] [address] Echo Lab Blood Pressure: 112 /58 mmHg Study Type: TRANSTHORACIC ECHO (TTE) COMPLETE Diagnosis/ICD: Encounter for preprocedural cardiovascular examination-Z01.810 Indication: PRE-OP CABG CPT Codes: Echo Complete w Full Doppler-[id number] Patient History: Pertinent History: CAD, Hyperlipidemia and MA. Study Detail: The following Echo studies were performed: 2D, M-Mode, Doppler and color flow. Definity used as a contrast agent for endocardial border definition. Total contrast used for this procedure was 2 mL via IV push. The patient was awake. PHYSICIAN INTERPRETATION: Left Ventricle: Left ventricular systolic function is normal, with an estimated ejection fraction of 55-60%. There are no regional wall motion abnormalities. The left ventricular cavity size is normal. The left ventricular septal wall thickness is mildly increased. There is normal left ventricular posterior wall thickness. Spectral Doppler shows an impaired relaxation pattern of left ventricular diastolic filling. Left Atrium: The left atrium is normal in size. Left atrial volume index 18.5 mL/m2. Right Ventricle: The right ventricle is normal in size. There is normal right ventricular global systolic function. Normal right ventricular chamber size and function. Right Atrium: The right atrium is normal in size. Aortic Valve: The aortic valve was not well visualized. There is mild aortic valve cusp calcification. There is no evidence of aortic valve regurgitation. The peak instantaneous gradient of the aortic valve is 7.8 mmHg. The mean gradient of the aortic valve is 4.0 mmHg. Mitral Valve: The mitral valve is normal in structure. There is trace mitral valve regurgitation. Tricuspid Valve: The tricuspid valve is structurally normal. There is trace tricuspid regurgitation. The right ventricular systolic pressure is unable to be estimated. Trivial tricuspid regurgitation. Pulmonic Valve: The pulmonic valve is structurally normal. There is no indication of pulmonic valve regurgitation. Pericardium: There is a trivial pericardial effusion. Aorta: The aortic root is normal. Systemic Veins: The inferior vena cava appears to be of normal size. There is IVC inspiratory collapse greater than 50%. CONCLUSIONS: 1. Left ventricular systolic function is normal with a 55-60% estimated ejection fraction. 2. Spectral Doppler shows an impaired relaxation pattern of left ventricular diastolic filling. 3. Normal right ventricular chamber size and function. 4. Trivial tricuspid regurgitation. 5. No previous available for comparison. QUANTITATIVE DATA SUMMARY: 2D MEASUREMENTS: Normal Ranges: Ao Root d: 2.90 cm (2.0-3.7cm) LAs: 3.70 cm (2.7-4.0cm) IVSd: 1.20 cm (0.6-1.1cm) LVPWd: 0.93 cm (0.6-1.1cm) LVIDd: 3.80 cm (3.9-5.9cm) LVIDs: 2.60 cm LV Mass Index: 58.8 g/m2 LV % FS 31.6 % LA VOLUME: Normal Ranges: LA Vol A4C: 37.5 ml (22+/-6mL/m2) LA Vol A2C: 40.3 ml LA Vol BP: 41.3 ml LA Vol Index A4C: 17.2ml/m2 LA Vol Index A2C: 18.5 ml/m2 LA Vol Index BP: 19.0 ml/m2 LA Area A4C: 15.7 cm2 LA Area A2C: 15.3 cm2 LA Major [place] A4C: 5.6 cm LA Major [place] A2C: 4.9 cm LA Volume Index: 17.9 ml/m2 RA VOLUME BY A/L METHOD: Normal Ranges: RA Vol A4C: 33.3 ml (8.3-19.5ml) RA Vol Index A4C: 15.3 ml/m2 RA Area A4C: 13.7 cm2 RA Major [place] A4C: 4.8 cm AORTA MEASUREMENTS: Normal Ranges: Asc Ao, d: 3.10 cm (2.1-3.4cm) LV SYSTOLIC FUNCTION BY 2D PLANIMETRY (MOD): Normal Ranges: EF-A4C View: 58.9 % (>=55%) EF-A2C View: 54.9 % EF-Biplane: 58.6 % LV DIASTOLIC FUNCTION: Normal Ranges: MV Peak E: 0.85 m/s (0.7-1.2 m/s) MV Peak A: 0.80 m/s (0.42-0.7 m/s) E/A Ratio: 1.07 (1.0-2.2) MV e' 0.11 m/s (>8.0) MV lateral e' 0.11 m/s MV medial e' 0.09 m/s E/e' Ratio: 7.73 (<8.0) MITRAL VALVE: Normal Ranges: MV DT: 229 msec (150-240msec) AORTIC VALVE: Normal Ranges: AoV Vmax: 1.40 m/s (<=1.7m/s) AoV Peak P.8 mmHg (<20mmHg) AoV Mean P.0 mmHg (1.7-11.5mmHg) LVOT Max Gael: 1.20 m/s (<=1.1m/s) AoV VTI: 24.60 cm (18-25cm) LVOT VTI: 24.30 cm LVOT Diameter: 2.00 cm (1.8-2.4cm) AoV Area, VTI: 3.10 cm2 (2.5-5.5cm2) AoV Area,Vmax: 2.69 cm2 (2.5-4.5cm2) AoV Dimensionless Index: 0.99 RIGHT VENTRICLE: RV Basal 3.11 cm RV Mid 2.26 cm RV Major 7.5 cm TAPSE: 25.4 mm RV s' 0.14 m/s TRICUSPID VALVE/RVSP: Normal Ranges: IVC Diam: 1.65 cm PULMONIC VALVE: Normal Ranges: PV Accel Time: 77 msec (>120ms) PV Max Gael: 1.0 m/s (0.6-0.9m/s) PV Max P.7 mmHg [id number] Dev Ding MD, [facility] Electronically signed on 07/19/2023 at 2:33:[address] chest wo IV contrast Result Date: 07/19/2023 Interpreted By: Hector Smith, STUDY: CT CHEST WO IV CONTRAST; 07/19/2023 1:48 pm INDICATION: Signs/Symptoms:pre-op CABG; please assess ascending aorta for atherosclerosis and size. COMPARISON: None. ACCESSION NUMBER(S): [id number] ORDERING CLINICIAN: MARYANNE YOU TECHNIQUE: Contiguous unenhanced axial images were obtained through the chest. Images were reformatted in axial, coronal, and sagittal planes. FINDINGS: LUNGS and AIRWAYS: Small bands of subsegmental atelectasis or scar are present in the left lower lobe anteriorly as well as the lingula. Mild dependent atelectasis present bilaterally. No focal consolidation. No pleural effusion or pneumothorax. MEDIASTINUM and LITO, LOWER NECK AND AXILLA: No mediastinal or hilar lymphadenopathy is seen. No axillary lymphadenopathy. HEART and VESSELS: There is no thoracic aortic aneurysm. Ascending thoracic aorta is uniform in caliber measuring approximately 3.1 x 3.1 cm in transverse and AP diameters. Small irregular calcifications are seen at the aortic root level. No additional calcification is seen in the ascending thoracic aorta. Small atherosclerotic calcification is seen in the distal aortic arch. Descending thoracic aorta is uniform in caliber measuring 2.4 cm in diameter. Coronary artery calcifications and/or stents are present. No pericardial effusion. Heart is not significantly enlarged. UPPER ABDOMEN: Gallbladder is not abnormally distended and contains mixed attenuation gallstone in the dependent portion toward the base. No pericholecystic inflammation is seen. No biliary dilation. CHEST WALL and OSSEOUS STRUCTURES: There is mild S-shaped scoliosis of the thoracic spine. Multilevel disc space narrowing and predominantly anterior endplate spurring/partially bridging osteophytes are most prominent in the mid-lower thoracic spine. 1. No thoracic aortic aneurysm. Ascending thoracic aorta measures 3.1 cm in diameter. 2. Irregular calcification at the aortic root level. No evidence of calcification in the ascending thoracic aorta. 3. Cholelithiasis. No pericholecystic inflammation. No biliary dilation. MACRO: None. Signed by: Hector Smith 07/19/2023 2:09 PM Dictation workstation: [id number] ECG 12 lead Result Date: 07/19/2023 Normal sinus rhythm Possible Inferior infarct , age undetermined Abnormal ECG No previous ECGs available Confirmed by Courtney Shrestha ([id number]) on 07/19/2023 7:31:32 AM Carotid duplex bilateral Final Result Normal flow pattern without evidence of hemodynamically relevant stenosis or atheromatous plaques in the visualized portions of the carotid circulation as described above. MACRO: None Signed by: Hector Smith 07/19/2023 3:43 PM Dictation workstation: [id number] XR chest 2 views Final Result 1. Mild left basilar atelectasis. No focal consolidation. MACRO: None. Signed by: Hector Smith 07/19/2023 3:41 PM Dictation workstation: [id number] CT chest wo IV contrast Final Result 1. No thoracic aortic aneurysm. Ascending thoracic aorta measures 3.1 cm in diameter. 2. Irregular calcification at the aortic root level. No evidence of calcification in the ascending thoracic aorta. 3. Cholelithiasis. No pericholecystic inflammation. No biliary dilation. MACRO: None. Signed by: Hector Smith 07/19/2023 2:09 PM Dictation workstation: [id number] Transthoracic Echo (TTE) Complete Final Result Transthoracic Echo (TTE) Complete Result Date: 07/19/2023 [place] [address] TRANSTHORACIC ECHOCARDIOGRAM REPORT Patient Name: ROBERT SMILEY Reading Physician: [id number] Dev Ding MD, [facility] Study Date: 07/19/2023 Ordering Provider: [id number] EDUARDO FERRO MRN/PID: [id number] Fellow: Nurse: Mendoza Dowd RN Date of /Age: 5 1960 / 62 years Complaint Investigations Officer: Chloé Lyman RDCS Gender: M Additional Staff: Height: 172.72 cm Admit Date: 07/18/2023 Weight: 105.69 kg Admission Status: Inpatient - Routine BSA / BMI: 2.18 m2 / 35.43 Department Location: [place] [address] Echo Lab Blood Pressure: 112 /58 mmHg Study Type: TRANSTHORACIC ECHO (TTE) COMPLETE Diagnosis/ICD: Encounter for preprocedural cardiovascular examination-Z01.810 Indication: PRE-OP CABG CPT Codes: Echo Complete w Full Doppler-[id number] Patient History: Pertinent History: CAD, Hyperlipidemia and MA. Study Detail: The following Echo studies were performed: 2D, M-Mode, Doppler and color flow. Definity used as a contrast agent for endocardial border definition. Total contrast used for this procedure was 2 mL via IV push. The patient was awake. PHYSICIAN INTERPRETATION: Left Ventricle: Left ventricular systolic function is normal, with an estimated ejection fraction of 55-60%. There are no regional wall motion abnormalities. The left ventricular cavity size is normal. The left ventricular septal wall thickness is mildly increased. There is normal left ventricular posterior wall thickness. Spectral Doppler shows an impaired relaxation pattern of left ventricular diastolic filling. Left Atrium: The left atrium is normal in size. Left atrial volume index 18.5 mL/m2. Right Ventricle: The right ventricle is normal in size. There is normal right ventricular global systolic function. Normal right ventricular chamber size and function. Right Atrium: The right atrium is normal in size. Aortic Valve: The aortic valve was not well visualized. There is mild aortic valve cusp calcification. There is no evidence of aortic valve regurgitation. The peak instantaneous gradient of the aortic valve is 7.8 mmHg. The mean gradient of the aortic valve is 4.0 mmHg. Mitral Valve: The mitral valve is normal in structure. There is trace mitral valve regurgitation. Tricuspid Valve: The tricuspid valve is structurally normal. There is trace tricuspid regurgitation. The right ventricular systolic pressure is unable to be estimated. Trivial tricuspid regurgitation. Pulmonic Valve: The pulmonic valve is structurally normal. There is no indication of pulmonic valve regurgitation. Pericardium: There is a trivial pericardial effusion. Aorta: The aortic root is normal. Systemic Veins: The inferior vena cava appears to be of normal size. There is IVC inspiratory collapse greater than 50%. CONCLUSIONS: 1. Left ventricular systolic function is normal with a 55-60% estimated ejection fraction. 2. Spectral Doppler shows an impaired relaxation pattern of left ventricular diastolic filling. 3. Normal right ventricular chamber size and function. 4. Trivial tricuspid regurgitation. 5. No previous available for comparison. QUANTITATIVE DATA SUMMARY: 2D MEASUREMENTS: Normal Ranges: Ao Root d: 2.90 cm (2.0-3.7cm) LAs: 3.70 cm (2.7-4.0cm) IVSd: 1.20 cm (0.6-1.1cm) LVPWd: 0.93 cm (0.6-1.1cm) LVIDd: 3.80 cm (3.9-5.9cm) LVIDs: 2.60 cm LV Mass Index: 58.8 g/m2 LV % FS 31.6 % LA VOLUME: Normal Ranges: LA Vol A4C: 37.5 ml (22+/-6mL/m2) LA Vol A2C: 40.3 ml LA Vol BP: 41.3 ml LA Vol Index A4C: 17.2ml/m2 LA Vol Index A2C: 18.5 ml/m2 LA Vol Index BP: 19.0 ml/m2 LA Area A4C: 15.7 cm2 LA Area A2C: 15.3 cm2 LA Major [place] A4C: 5.6 cm LA Major [place] A2C: 4.9 cm LA Volume Index: 17.9 ml/m2 RA VOLUME BY A/L METHOD: Normal Ranges: RA Vol A4C: 33.3 ml (8.3-19.5ml) RA Vol Index A4C: 15.3 ml/m2 RA Area A4C: 13.7 cm2 RA Major [place] A4C: 4.8 cm AORTA MEASUREMENTS: Normal Ranges: Asc Ao, d: 3.10 cm (2.1-3.4cm) LV SYSTOLIC FUNCTION BY 2D PLANIMETRY (MOD): Normal Ranges: EF-A4C View: 58.9 % (>=55%) EF-A2C View: 54.9 % EF-Biplane: 58.6 % LV DIASTOLIC FUNCTION: Normal Ranges: MV Peak E: 0.85 m/s (0.7-1.2 m/s) MV Peak A: 0.80 m/s (0.42-0.7 m/s) E/A Ratio: 1.07 (1.0-2.2) MV e' 0.11 m/s (>8.0) MV lateral e' 0.11 m/s MV medial e' 0.09 m/s E/e' Ratio: 7.73 (<8.0) MITRAL VALVE: Normal Ranges: MV DT: 229 msec (150-240msec) AORTIC VALVE: Normal Ranges: AoV Vmax: 1.40 m/s (<=1.7m/s) AoV Peak P.8 mmHg (<20mmHg) AoV Mean P.0 mmHg (1.7-11.5mmHg) LVOT Max Gael: 1.20 m/s (<=1.1m/s) AoV VTI: 24.60 cm (18-25cm) LVOT VTI: 24.30 cm LVOT Diameter: 2.00 cm (1.8-2.4cm) AoV Area, VTI: 3.10 cm2 (2.5-5.5cm2) AoV Area,Vmax: 2.69 cm2 (2.5-4.5cm2) AoV Dimensionless Index: 0.99 RIGHT VENTRICLE: RV Basal 3.11 cm RV Mid 2.26 cm RV Major 7.5 cm TAPSE: 25.4 mm RV s' 0.14 m/s TRICUSPID VALVE/RVSP: Normal Ranges: IVC Diam: 1.65 cm PULMONIC VALVE: Normal Ranges: PV Accel Time: 77 msec (>120ms) PV Max Gael: 1.0 m/s (0.6-0.9m/s) PV Max P.7 mmHg [id number] Dev Ding MD, [facility] Electronically signed on 07/19/2023 at 2:33:57 PM Final RADIOLOGY: Carotid duplex bilateral Final Result Normal flow pattern without evidence of hemodynamically relevant stenosis or atheromatous plaques in the visualized portions of the carotid circulation as described above. MACRO: None Signed by: Hector Smith 07/19/2023 3:43 PM Dictation workstation: [id number] XR chest 2 views Final Result 1. Mild left basilar atelectasis. No focal consolidation. MACRO: None. Signed by: Hector Smith 07/19/2023 3:41 PM Dictation workstation: [id number] CT chest wo IV contrast Final Result 1. No thoracic aortic aneurysm. Ascending thoracic aorta measures 3.1 cm in diameter. 2. Irregular calcification at the aortic root level. No evidence of calcification in the ascending thoracic aorta. 3. Cholelithiasis. No pericholecystic inflammation. No biliary dilation. MACRO: None. Signed by: Hector Smith 07/19/2023 2:09 PM Dictation workstation: [id number] Transthoracic Echo (TTE) Complete Final Result PROBLEM LIST Patient Active Problem List Diagnosis Acute myocardial infarction due to left coronary artery occlusion (CMS/HCC) Hyperlipidemia Coronary artery disease of [place] artery of [place] heart with stable angina pectoris (CMS/HCC) Asperger's syndrome Elevated troponin ASSESSMENT: CAD triple-vessel disease Hypertension Dyslipidemia PLAN: Patient seen and examined in conjunction with Troy Ferro APRN and agree with the evaluation as noted above. 62-year-old gentleman who was transferred from [facility] for possible angina. He has a history of CAD hypertension dyslipidemia and presented to the hospital with unstable angina with radiation to the left arm. Emergent cardiac catheterization showed severe triple-vessel disease as noted above with 95% LAD, left circumflex as well as RCA. Patient was transferred for CABG. He is currently chest pain-free. EKG shows sinus rhythm with inferolateral ST depression. Cardiac exam reveals regular first and second heart sound, no murmurs are heard. Chest is clear to auscultation. ASSESSMENT AND PLAN: 1. CAD: With severe triple-vessel disease, awaiting cardiac evaluation. In the meantime, we will get an echocardiogram to rule out any significant valvular abnormalities and we will hold his Plavix for impending surgery. Full recommendations to be based on CV surgical evaluation. 2.Hypertension: We will continue to optimize blood pressure control. 3. Dyslipidemia: Continue with her current high intensity lipid-lowering therapy. AKA 07/20/23 Tele monitoring Continue the heparin drip Plan for CABG on Tuesday Daily EKGs Further recommendations per Dr Emmanuel Ferro [facility] Of note, this documentation is completed using the [employer] system (voice recognition software). There may be spelling and/or grammatical errors that were not corrected prior to final submission. Please do not hesitate to call with questions. Patient seen and examined in conjunction with Troy Ferro APRN and agree with the evaluation as noted above. Patient remains in status quo, continues to be chest pain-free. He is awaiting CABG tentatively scheduled for next week Tuesday pending washout of Plavix. Preop echo shows normal LV function with no gross valvular abnormalities as noted above. Will continue with her other current cardiac medications and plan for surgery as scheduled. AKBeatriz 07/21/23 Tele monitoring Aspirin 81 mg daily Lipitor 40 mg daily Imdur 30 mg daily Lopressor 25 mg p.o. twice daily Continue the heparin drip Plan for CABG on Tuesday Further recommendations per Dr Benitez Patient seen and examined in conjunction with Troy Ferro APRN and agree with the evaluation as noted above. Patient continues to do well with no recurrent chest pain. Awaiting surgery as scheduled. Continues to maintain sinus rhythm with no significant arrhythmias on the monitor. Will continue current cardiac medications and follow the patient postoperatively. AKA 07/22/23 Tele monitoring Continue the heparin drip for now Plan for CABG on Tuesday Further recommendations per Dr Benitez 07/23/23: Patient continues to do well and remains in status quo with no chest pain or shortness of breath with ambulation. Awaiting CABG on Tuesday as scheduled. We will continue with current medications and follow the patient postoperatively. AKA [facility] Progress Note Rounding ANTONIO/Fire Hose Curer: Heraclio Benitez MD, Dr. Heraclio Benitez Primary Fire Hose Curer: Dr Horton Date: 07/23/2023 Patient: Robert Smiley Date of : 1960 Admit Date: 07/19/2023 SUBJECTIVE: 07/23/23: Patient remains in status quo, denies any chest pain or shortness of breath with ambulation. He is awaiting CABG on Tuesday and he continues to maintain sinus rhythm with occasional PVCs. 07/22/23 Patient is awake and alert and oriented x 3 he states that he is not having any chest pain I spoke to him at length he is well-informed of plan of care that we are going to do the CABG on Tuesday answered all of his questions Telemetry is normal sinus rhythm with a Ke lesional PVC 07/21/23 Patient is awake and alert and oriented x 3. States he had a little indigestion this morning spoke to him at length he denies any chest pain or shortness of breath Telemetry is normal sinus rhythm with occasional PVC EKG is normal sinus rhythm has ST depression in inferior 07/20/23 Patient is resting quietly spoke to him at length he discussed at length with CT surgery they are planning for CABG on Tuesday He denies chest pain or shortness of breath Telemetry is normal sinus rhythm with occasional PVCs EKG is normal sinus rhythm no acute change 07/19/23 Robert Smiley is a 62 y.o. male patient who is being at the request of Dr. Salgado for inpatient consultation of angina. He was admitted on 07/19/2023. Previous [facility] and [facility] records have been reviewed in detail. Patient with a history of CAD, hypertension dyslipidemia was transferred from [facility] for CABG evaluation. On Tuesday the patient developed chest pain that radiated down his left arm along with chest pain he went to [facility] they transferred him to [facility] for heart catheterization LAD 95% Circumflex 95% RCA 95 to 99% Patient states they put him on a heparin drip send and will be here for CABG consult. He states he does not have any chest pain, fever, chills, nausea, vomiting, PND, orthopnea, claudications at this present time. He states that he has had a couple stents in the past. EKG is normal sinus rhythm has ST depression in inferior VITALS: Vitals: 07/22/23 1414 07/22/23 2000 07/23/23 0026 07/23/23 0800 BP: 117/58 111/57 127/81 120/59 BP Location: Left arm Patient Position: Lying Pulse: 72 71 72 66 Resp: 12 16 18 Temp: 36.5 C (97.7 F) 36.9 C (98.4 F) 36.8 C (98.2 F) 36.2 C (97.2 F) TempSrc: Temporal SpO2: 94% 94% 95% 94% Weight: Height: No intake or output data in the 24 hours ending 07/23/23 1315 Wt Readings from Last 4 Encounters: 07/19/23 106 kg (233 lb 3.2 oz) 07/18/23 108 kg (239 lb) CURRENT HOSPITAL MEDICATIONS: aspirin, 81 mg, oral, Daily atorvastatin, 40 mg, oral, Nightly isosorbide mononitrate ER, 30 mg, oral, Daily metoprolol tartrate, 25 mg, oral, BID pantoprazole, 40 mg, oral, Daily heparin, 0-4,000 Units/hr, Last Rate: 12 Units/hr (07/23/23 1249) Current Outpatient Medications Medication Instructions clopidogrel (PLAVIX) 75 mg, oral, Daily meloxicam (MOBIC) 7.5 mg, oral, Daily, Unsure if dose is correct
PHYSICAL EXAMINATION: GENERAL: Well developed, well nourished, in no acute distress. CHEST: Symmetric and nontender. NEURO/PSYCH: Alert and oriented times three with approppriate behavior and responses. NECK: Supple, no JVD, no bruit. LUNGS: Clear to auscultation bilaterally, normal respiratory effort. HEART: Rate and rhythm regular with no evident murmur, no gallop appreciated. There are no rubs, clicks or heaves. EXTREMITIES: Warm with good color, no clubbing or cyanosis. There is no edema noted. PERIPHERAL VASCULAR: Pulses present and equally palpable; 2+ throughout. LAB DATA: CBC: Results from last 7 days Lab Units 07/22/2342507/20/2343407/19/23 06 WBC AUTO x10*3/uL 8.5 9.1 7.5 RBC AUTO x10*6/uL 5.00 4.89 5.00 HEMOGLOBIN g/dL 15.1 15.0 15.1 HEMATOCRIT % 44.3 43.0 44.3 MCV fL 89 88 89 MCH pg 30.2 30.7 30.2 MCHC g/dL 34.1 34.9 34.1 RDW % 13.0 12.8 12.8 PLATELETS AUTO x10*3/uL 250 254 248 CMP: Results from last 7 days Lab Units 07/21/2352107/20/2343407/19/23 0600 SODIUM mmol/L 137 137 137 POTASSIUM mmol/L 4.0 4.0 4.0 CHLORIDE mmol/L 106 106 104 CO2 mmol/L 22 23 26 BUN mg/dL 19 20 16 CREATININE mg/dL 1.07 1.15 1.06 GLUCOSE mg/dL 99 97 90 PROTEIN TOTAL g/dL -- -- 6.5 CALCIUM mg/dL 9.2 9.1 8.8 BILIRUBIN TOTAL mg/dL -- -- 0.6 ALK PHOS U/L -- -- 70 AST U/L -- -- 21 ALT U/L -- -- 13 BMP: Results from last 7 days Lab Units 07/21/2352107/20/2343407/19/23 06 SODIUM mmol/L 137 137 137 POTASSIUM mmol/L 4.0 4.0 4.0 CHLORIDE mmol/L 106 106 104 CO2 mmol/L 22 23 26 BUN mg/dL 19 20 16 CREATININE mg/dL 1.07 1.15 1.06 CALCIUM mg/dL 9.2 9.1 8.8 GLUCOSE mg/dL 99 97 90 Magnesium: Results from last 7 days Lab Units 07/21/2352107/20/2343407/19/23 0600 MAGNESIUM mg/dL 2.01 1.93 1.98 Troponin: Results from last 7 days Lab Units 07/19/23 0600 TROPHS ng/L 2,181* BNP: Lipid Panel: Results from last 7 days Lab Units 07/19/23 1543 HDL mg/dL 55.7 CHOLESTEROL/HDL RATIO 3.7 VLDL mg/dL 30 TRIGLYCERIDES mg/dL 148 NON HDL CHOL. mg/dL 150* DIAGNOSTIC TESTING: @No results found for this or any previous visit. ECG 12 Lead Result Date: 07/20/2023 Normal sinus rhythm Possible Inferior infarct (cited on or before 19-JUL-2023) Abnormal ECG When compared with ECG of 19-JUL-2023 07:06, No significant change was found Carotid duplex bilateral Result Date: 07/19/2023 Interpreted By: Hector Smith, STUDY: [facility] US CAROTID ARTERY DUPLEX BILATERAL; 07/19/2023 2:38 pm INDICATION: Signs/Symptoms:pre-op CABG; r/o carotid stenosis. COMPARISON: None. ACCESSION NUMBER(S): [id number] ORDERING CLINICIAN: MARYANNE YOU TECHNIQUE: Vascular ultrasound of the extracranial carotid system was performed bilaterally. Griffith scale, color Doppler and spectral Doppler waveform analysis was performed. FINDINGS: RIGHT: On the right There is no evidence of atheromatous plaques in the common carotid arteries, visualized portions of the internal carotid arteries, and the proximal external carotid arteries. Doppler studies demonstrate normal flow pattern without evidence of turbulent flow.. The peak systolic velocities are as follows: RIGHT SIDE PEAK SYSTOLIC VELOCITY TABLE: CCA 116 cm/sec. ICA 58 cm/sec. ECA 105 cm/sec. The ratio of the peak systolic velocity of the right ICA/CCA is 0.5. RIGHT VERTEBRAL ARTERY: The right vertebral artery demonstrates proximal normal anterograde flow LEFT: On the left There is no evidence of atheromatous plaques in the common carotid arteries, visualized portions of the internal carotid arteries, and the proximal external carotid arteries. Doppler studies demonstrate normal flow pattern without evidence of turbulent flow.. The peak systolic velocities are as follows: LEFT SIDE PEAK SYSTOLIC VELOCITY TABLE: CCA 99 cm/sec. ICA 54 cm/sec. ECA 98 cm/sec. The ratio of the peak systolic velocity of the left ICA/CCA is 0.6. LEFT VERTEBRAL ARTERY: The left vertebral artery demonstrates proximal normal anterograde flow Normal flow pattern without evidence of hemodynamically relevant stenosis or atheromatous plaques in the visualized portions of the carotid circulation as described above. MACRO: None Signed by: Hector Smith 07/19/2023 3:43 PM Dictation workstation: [id number] XR chest 2 views Result Date: 07/19/2023 Interpreted By: Hector Smith, STUDY: XR CHEST 2 VIEWS; 07/19/2023 2:08 pm INDICATION: Signs/Symptoms:pre-op CABG. COMPARISON: None. ACCESSION NUMBER(S): [id number] ORDERING CLINICIAN: MARYANNE YOU FINDINGS: CARDIOMEDIASTINAL SILHOUETTE: Cardiomediastinal silhouette is normal in size and configuration. LUNGS: Mild left basilar atelectasis is present. No focal consolidation. No pleural effusion or pneumothorax. ABDOMEN: No remarkable upper abdominal findings. BONES: Multilevel predominantly anterior endplate spurring/partially bridging osteophytes are present in the thoracic spine. 1. Mild left basilar atelectasis. No focal consolidation. MACRO: None. Signed by: Hector Smith 07/19/2023 3:41 PM Dictation workstation: [id number] Transthoracic Echo (TTE) Complete Result Date: 07/19/2023 [place] [address] TRANSTHORACIC ECHOCARDIOGRAM REPORT Patient Name: ROBERT SMILEY Reading Physician: [id number] Dev Ding MD, [facility] Study Date: 07/19/2023 Ordering Provider: [id number] EDUARDO FERRO MRN/PID: [id number] Fellow: Nurse: Mendoza Dowd RN Date of /Age: 5 1960 / 62 years Complaint Investigations Officer: Chléo Lyman RDCS Gender: M Additional Staff: Height: 172.72 cm Admit Date: 07/18/2023 Weight: 105.69 kg Admission Status: Inpatient - Routine BSA / BMI: 2.18 m2 / 35.43 Department Location: [place] [address] Echo Lab Blood Pressure: 112 /58 mmHg Study Type: TRANSTHORACIC ECHO (TTE) COMPLETE Diagnosis/ICD: Encounter for preprocedural cardiovascular examination-Z01.810 Indication: PRE-OP CABG CPT Codes: Echo Complete w Full Doppler-[id number] Patient History: Pertinent History: CAD, Hyperlipidemia and MA. Study Detail: The following Echo studies were performed: 2D, M-Mode, Doppler and color flow. Definity used as a contrast agent for endocardial border definition. Total contrast used for this procedure was 2 mL via IV push. The patient was awake. PHYSICIAN INTERPRETATION: Left Ventricle: Left ventricular systolic function is normal, with an estimated ejection fraction of 55-60%. There are no regional wall motion abnormalities. The left ventricular cavity size is normal. The left ventricular septal wall thickness is mildly increased. There is normal left ventricular posterior wall thickness. Spectral Doppler shows an impaired relaxation pattern of left ventricular diastolic filling. Left Atrium: The left atrium is normal in size. Left atrial volume index 18.5 mL/m2. Right Ventricle: The right ventricle is normal in size. There is normal right ventricular global systolic function. Normal right ventricular chamber size and function. Right Atrium: The right atrium is normal in size. Aortic Valve: The aortic valve was not well visualized. There is mild aortic valve cusp calcification. There is no evidence of aortic valve regurgitation. The peak instantaneous gradient of the aortic valve is 7.8 mmHg. The mean gradient of the aortic valve is 4.0 mmHg. Mitral Valve: The mitral valve is normal in structure. There is trace mitral valve regurgitation. Tricuspid Valve: The tricuspid valve is structurally normal. There is trace tricuspid regurgitation. The right ventricular systolic pressure is unable to be estimated. Trivial tricuspid regurgitation. Pulmonic Valve: The pulmonic valve is structurally normal. There is no indication of pulmonic valve regurgitation. Pericardium: There is a trivial pericardial effusion. Aorta: The aortic root is normal. Systemic Veins: The inferior vena cava appears to be of normal size. There is IVC inspiratory collapse greater than 50%. CONCLUSIONS: 1. Left ventricular systolic function is normal with a 55-60% estimated ejection fraction. 2. Spectral Doppler shows an impaired relaxation pattern of left ventricular diastolic filling. 3. Normal right ventricular chamber size and function. 4. Trivial tricuspid regurgitation. 5. No previous available for comparison. QUANTITATIVE DATA SUMMARY: 2D MEASUREMENTS: Normal Ranges: Ao Root d: 2.90 cm (2.0-3.7cm) LAs: 3.70 cm (2.7-4.0cm) IVSd: 1.20 cm (0.6-1.1cm) LVPWd: 0.93 cm (0.6-1.1cm) LVIDd: 3.80 cm (3.9-5.9cm) LVIDs: 2.60 cm LV Mass Index: 58.8 g/m2 LV % FS 31.6 % LA VOLUME: Normal Ranges: LA Vol A4C: 37.5 ml (22+/-6mL/m2) LA Vol A2C: 40.3 ml LA Vol BP: 41.3 ml LA Vol Index A4C: 17.2ml/m2 LA Vol Index A2C: 18.5 ml/m2 LA Vol Index BP: 19.0 ml/m2 LA Area A4C: 15.7 cm2 LA Area A2C: 15.3 cm2 LA Major [place] A4C: 5.6 cm LA Major [place] A2C: 4.9 cm LA Volume Index: 17.9 ml/m2 RA VOLUME BY A/L METHOD: Normal Ranges: RA Vol A4C: 33.3 ml (8.3-19.5ml) RA Vol Index A4C: 15.3 ml/m2 RA Area A4C: 13.7 cm2 RA Major [place] A4C: 4.8 cm AORTA MEASUREMENTS: Normal Ranges: Asc Ao, d: 3.10 cm (2.1-3.4cm) LV SYSTOLIC FUNCTION BY 2D PLANIMETRY (MOD): Normal Ranges: EF-A4C View: 58.9 % (>=55%) EF-A2C View: 54.9 % EF-Biplane: 58.6 % LV DIASTOLIC FUNCTION: Normal Ranges: MV Peak E: 0.85 m/s (0.7-1.2 m/s) MV Peak A: 0.80 m/s (0.42-0.7 m/s) E/A Ratio: 1.07 (1.0-2.2) MV e' 0.11 m/s (>8.0) MV lateral e' 0.11 m/s MV medial e' 0.09 m/s E/e' Ratio: 7.73 (<8.0) MITRAL VALVE: Normal Ranges: MV DT: 229 msec (150-240msec) AORTIC VALVE: Normal Ranges: AoV Vmax: 1.40 m/s (<=1.7m/s) AoV Peak P.8 mmHg (<20mmHg) AoV Mean P.0 mmHg (1.7-11.5mmHg) LVOT Max Gael: 1.20 m/s (<=1.1m/s) AoV VTI: 24.60 cm (18-25cm) LVOT VTI: 24.30 cm LVOT Diameter: 2.00 cm (1.8-2.4cm) AoV Area, VTI: 3.10 cm2 (2.5-5.5cm2) AoV Area,Vmax: 2.69 cm2 (2.5-4.5cm2) AoV Dimensionless Index: 0.99 RIGHT VENTRICLE: RV Basal 3.11 cm RV Mid 2.26 cm RV Major 7.5 cm TAPSE: 25.4 mm RV s' 0.14 m/s TRICUSPID VALVE/RVSP: Normal Ranges: IVC Diam: 1.65 cm PULMONIC VALVE: Normal Ranges: PV Accel Time: 77 msec (>120ms) PV Max Gael: 1.0 m/s (0.6-0.9m/s) PV Max P.7 mmHg [id number] Dev Ding MD, [facility] Electronically signed on 07/19/2023 at 2:33:[address] chest wo IV contrast Result Date: 07/19/2023 Interpreted By: Hector Smith, STUDY: CT CHEST WO IV CONTRAST; 07/19/2023 1:48 pm INDICATION: Signs/Symptoms:pre-op CABG; please assess ascending aorta for atherosclerosis and size. COMPARISON: None. ACCESSION NUMBER(S): [id number] ORDERING CLINICIAN: MARYANNE YOU TECHNIQUE: Contiguous unenhanced axial images were obtained through the chest. Images were reformatted in axial, coronal, and sagittal planes. FINDINGS: LUNGS and AIRWAYS: Small bands of subsegmental atelectasis or scar are present in the left lower lobe anteriorly as well as the lingula. Mild dependent atelectasis present bilaterally. No focal consolidation. No pleural effusion or pneumothorax. MEDIASTINUM and LITO, LOWER NECK AND AXILLA: No mediastinal or hilar lymphadenopathy is seen. No axillary lymphadenopathy. HEART and VESSELS: There is no thoracic aortic aneurysm. Ascending thoracic aorta is uniform in caliber measuring approximately 3.1 x 3.1 cm in transverse and AP diameters. Small irregular calcifications are seen at the aortic root level. No additional calcification is seen in the ascending thoracic aorta. Small atherosclerotic calcification is seen in the distal aortic arch. Descending thoracic aorta is uniform in caliber measuring 2.4 cm in diameter. Coronary artery calcifications and/or stents are present. No pericardial effusion. Heart is not significantly enlarged. UPPER ABDOMEN: Gallbladder is not abnormally distended and contains mixed attenuation gallstone in the dependent portion toward the base. No pericholecystic inflammation is seen. No biliary dilation. CHEST WALL and OSSEOUS STRUCTURES: There is mild S-shaped scoliosis of the thoracic spine. Multilevel disc space narrowing and predominantly anterior endplate spurring/partially bridging osteophytes are most prominent in the mid-lower thoracic spine. 1. No thoracic aortic aneurysm. Ascending thoracic aorta measures 3.1 cm in diameter. 2. Irregular calcification at the aortic root level. No evidence of calcification in the ascending thoracic aorta. 3. Cholelithiasis. No pericholecystic inflammation. No biliary dilation. MACRO: None. Signed by: Hector Smith 07/19/2023 2:09 PM Dictation workstation: [id number] ECG 12 lead Result Date: 07/19/2023 Normal sinus rhythm Possible Inferior infarct , age undetermined Abnormal ECG No previous ECGs available Confirmed by Courtney Shrestha ([id number]) on 07/19/2023 7:31:32 AM Carotid duplex bilateral Final Result Normal flow pattern without evidence of hemodynamically relevant stenosis or atheromatous plaques in the visualized portions of the carotid circulation as described above. MACRO: None Signed by: Hector Smith 07/19/2023 3:43 PM Dictation workstation: [id number] XR chest 2 views Final Result 1. Mild left basilar atelectasis. No focal consolidation. MACRO: None. Signed by: Hector Smith 07/19/2023 3:41 PM Dictation workstation: [id number] CT chest wo IV contrast Final Result 1. No thoracic aortic aneurysm. Ascending thoracic aorta measures 3.1 cm in diameter. 2. Irregular calcification at the aortic root level. No evidence of calcification in the ascending thoracic aorta. 3. Cholelithiasis. No pericholecystic inflammation. No biliary dilation. MACRO: None. Signed by: Hector Smith 07/19/2023 2:09 PM Dictation workstation: [id number] Transthoracic Echo (TTE) Complete Final Result Transthoracic Echo (TTE) Complete Result Date: 07/19/2023 [place] [address] TRANSTHORACIC ECHOCARDIOGRAM REPORT Patient Name: ROBERT SMILEY Reading Physician: [id number] Dev Ding MD, [facility] NETWORK Study Date: 07/19/2023 Ordering Provider: [id number] EDUARDO FERRO MRN/PID: [id number] Fellow: Nurse: Mendoza Dowd RN Date of /Age: 5 1960 / 62 years Complaint Investigations Officer: Chloé Lyman RDCS Gender: M Additional Staff: Height: 172.72 cm Admit Date: 07/18/2023 Weight: 105.69 kg Admission Status: Inpatient - Routine BSA / BMI: 2.18 m2 / 35.43 Department Location: [place] [address] Echo Lab Blood Pressure: 112 /58 mmHg Study Type: TRANSTHORACIC ECHO (TTE) COMPLETE Diagnosis/ICD: Encounter for preprocedural cardiovascular examination-Z01.810 Indication: PRE-OP CABG CPT Codes: Echo Complete w Full Doppler-[id number] Patient History: Pertinent History: CAD, Hyperlipidemia and MA. Study Detail: The following Echo studies were performed: 2D, M-Mode, Doppler and color flow. Definity used as a contrast agent for endocardial border definition. Total contrast used for this procedure was 2 mL via IV push. The patient was awake. PHYSICIAN INTERPRETATION: Left Ventricle: Left ventricular systolic function is normal, with an estimated ejection fraction of 55-60%. There are no regional wall motion abnormalities. The left ventricular cavity size is normal. The left ventricular septal wall thickness is mildly increased. There is normal left ventricular posterior wall thickness. Spectral Doppler shows an impaired relaxation pattern of left ventricular diastolic filling. Left Atrium: The left atrium is normal in size. Left atrial volume index 18.5 mL/m2. Right Ventricle: The right ventricle is normal in size. There is normal right ventricular global systolic function. Normal right ventricular chamber size and function. Right Atrium: The right atrium is normal in size. Aortic Valve: The aortic valve was not well visualized. There is mild aortic valve cusp calcification. There is no evidence of aortic valve regurgitation. The peak instantaneous gradient of the aortic valve is 7.8 mmHg. The mean gradient of the aortic valve is 4.0 mmHg. Mitral Valve: The mitral valve is normal in structure. There is trace mitral valve regurgitation. Tricuspid Valve: The tricuspid valve is structurally normal. There is trace tricuspid regurgitation. The right ventricular systolic pressure is unable to be estimated. Trivial tricuspid regurgitation. Pulmonic Valve: The pulmonic valve is structurally normal. There is no indication of pulmonic valve regurgitation. Pericardium: There is a trivial pericardial effusion. Aorta: The aortic root is normal. Systemic Veins: The inferior vena cava appears to be of normal size. There is IVC inspiratory collapse greater than 50%. CONCLUSIONS: 1. Left ventricular systolic function is normal with a 55-60% estimated ejection fraction. 2. Spectral Doppler shows an impaired relaxation pattern of left ventricular diastolic filling. 3. Normal right ventricular chamber size and function. 4. Trivial tricuspid regurgitation. 5. No previous available for comparison. QUANTITATIVE DATA SUMMARY: 2D MEASUREMENTS: Normal Ranges: Ao Root d: 2.90 cm (2.0-3.7cm) LAs: 3.70 cm (2.7-4.0cm) IVSd: 1.20 cm (0.6-1.1cm) LVPWd: 0.93 cm (0.6-1.1cm) LVIDd: 3.80 cm (3.9-5.9cm) LVIDs: 2.60 cm LV Mass Index: 58.8 g/m2 LV % FS 31.6 % LA VOLUME: Normal Ranges: LA Vol A4C: 37.5 ml (22+/-6mL/m2) LA Vol A2C: 40.3 ml LA Vol BP: 41.3 ml LA Vol Index A4C: 17.2ml/m2 LA Vol Index A2C: 18.5 ml/m2 LA Vol Index BP: 19.0 ml/m2 LA Area A4C: 15.7 cm2 LA Area A2C: 15.3 cm2 LA Major [place] A4C: 5.6 cm LA Major [place] A2C: 4.9 cm LA Volume Index: 17.9 ml/m2 RA VOLUME BY A/L METHOD: Normal Ranges: RA Vol A4C: 33.3 ml (8.3-19.5ml) RA Vol Index A4C: 15.3 ml/m2 RA Area A4C: 13.7 cm2 RA Major [place] A4C: 4.8 cm AORTA MEASUREMENTS: Normal Ranges: Asc Ao, d: 3.10 cm (2.1-3.4cm) LV SYSTOLIC FUNCTION BY 2D PLANIMETRY (MOD): Normal Ranges: EF-A4C View: 58.9 % (>=55%) EF-A2C View: 54.9 % EF-Biplane: 58.6 % LV DIASTOLIC FUNCTION: Normal Ranges: MV Peak E: 0.85 m/s (0.7-1.2 m/s) MV Peak A: 0.80 m/s (0.42-0.7 m/s) E/A Ratio: 1.07 (1.0-2.2) MV e' 0.11 m/s (>8.0) MV lateral e' 0.11 m/s MV medial e' 0.09 m/s E/e' Ratio: 7.73 (<8.0) MITRAL VALVE: Normal Ranges: MV DT: 229 msec (150-240msec) AORTIC VALVE: Normal Ranges: AoV Vmax: 1.40 m/s (<=1.7m/s) AoV Peak P.8 mmHg (<20mmHg) AoV Mean P.0 mmHg (1.7-11.5mmHg) LVOT Max Gael: 1.20 m/s (<=1.1m/s) AoV VTI: 24.60 cm (18-25cm) LVOT VTI: 24.30 cm LVOT Diameter: 2.00 cm (1.8-2.4cm) AoV Area, VTI: 3.10 cm2 (2.5-5.5cm2) AoV Area,Vmax: 2.69 cm2 (2.5-4.5cm2) AoV Dimensionless Index: 0.99 RIGHT VENTRICLE: RV Basal 3.11 cm RV Mid 2.26 cm RV Major 7.5 cm TAPSE: 25.4 mm RV s' 0.14 m/s TRICUSPID VALVE/RVSP: Normal Ranges: IVC Diam: 1.65 cm PULMONIC VALVE: Normal Ranges: PV Accel Time: 77 msec (>120ms) PV Max Gael: 1.0 m/s (0.6-0.9m/s) PV Max P.7 mmHg [id number] Dev Ding MD, FACC Electronically signed on 07/19/2023 at 2:33:57 PM Final RADIOLOGY: Carotid duplex bilateral Final Result Normal flow pattern without evidence of hemodynamically relevant stenosis or atheromatous plaques in the visualized portions of the carotid circulation as described above. MACRO: None Signed by: Hector Smith 07/19/2023 3:43 PM Dictation workstation: [id number] XR chest 2 views Final Result 1. Mild left basilar atelectasis. No focal consolidation. MACRO: None. Signed by: Hector Smith 07/19/2023 3:41 PM Dictation workstation: [id number] CT chest wo IV contrast Final Result 1. No thoracic aortic aneurysm. Ascending thoracic aorta measures 3.1 cm in diameter. 2. Irregular calcification at the aortic root level. No evidence of calcification in the ascending thoracic aorta. 3. Cholelithiasis. No pericholecystic inflammation. No biliary dilation. MACRO: None. 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 62-year-old gentleman who was transferred from [facility] for possible angina. He has a history of CAD hypertension dyslipidemia and presented to the hospital with unstable angina with radiation to the left arm. Emergent cardiac catheterization showed severe triple-vessel disease as noted above with 95% LAD, left circumflex as well as RCA. Patient was transferred for CABG. He is currently chest pain-free. EKG shows sinus rhythm with inferolateral ST depression. Cardiac exam reveals regular first and second heart sound, no murmurs are heard. Chest is clear to auscultation. ASSESSMENT AND PLAN: 1. CAD: With severe triple-vessel disease, awaiting cardiac evaluation. In the meantime, we will get an echocardiogram to rule out any significant valvular abnormalities and we will hold his Plavix for impending surgery. Full recommendations to be based on CV surgical evaluation. 2.Hypertension: We will continue to optimize blood pressure control. 3. Dyslipidemia: Continue with her current high intensity lipid-lowering therapy. DUSTIN 07/20/23 Tele monitoring Continue the heparin drip Plan for CABG on Tuesday Daily EKGs Further recommendations per Dr Emmanuel Ferro [facility] Of note, this documentation is completed using the [employer] system (voice recognition software). There may be spelling and/or grammatical errors that were not corrected prior to final submission. Please do not hesitate to call with questions. Patient seen and examined in conjunction with Troy Ferro APRN and agree with the evaluation as noted above. Patient remains in status quo, continues to be chest pain-free. He is awaiting CABG tentatively scheduled for next week Tuesday pending washout of Plavix. Preop echo shows normal LV function with no gross valvular abnormalities as noted above. Will continue with her other current cardiac medications and plan for surgery as scheduled. AKBeatriz 07/21/23 Tele monitoring Aspirin 81 mg daily Lipitor 40 mg daily Imdur 30 mg daily Lopressor 25 mg p.o. twice daily Continue the heparin drip Plan for CABG on Tuesday Further recommendations per Dr Benitez Patient seen and examined in conjunction with Troy Ferro APRN and agree with the evaluation as noted above. Patient continues to do well with no recurrent chest pain. Awaiting surgery as scheduled. Continues to maintain sinus rhythm with no significant arrhythmias on the monitor. Will continue current cardiac medications and follow the patient postoperatively. DUSTIN 07/22/23 Tele monitoring Continue the heparin drip for now Plan for CABG on Tuesday Further recommendations per Dr Benitez 07/23/23: Patient continues to do well and remains in status quo with no chest pain or shortness of breath with ambulation. Awaiting CABG on Tuesday as scheduled. We will continue with current medications and follow the patient postoperatively. AKA ASSESSMENT & PLAN: NSTEMI Hx of CAD s/p PCI (2017) HTN DLD -p/w anginal CP to OSH, found to have NSTEMI, cath showed diffuse triple vessel disease, and transferred to [facility] for CABG eval -TTE here showed normal LVEF, no RWMA, no sig valvulopathy Plan: -CTS following, tentative plan for CABG on Mon as needs x5d Plavix washout (last dose 07/17), preoperative testing done -cardiology following -ASA, high intensity statin, hold Plavix for now -hep gtt -metoprolol, Imdur -tele monitoring Vte ppx already on hep gtt Attila Salgado MD SUBJECTIVE NAEON. No complaints. OBJECTIVE: Last Recorded Vitals: Vitals: 07/22/23 1414 07/22/23199907/23/23 0026 07/23/23 0800 BP: 117/58 111/57 127/81 120/59 BP Location: Left arm Patient Position: Lying Pulse: 72 71 72 66 Resp: 12 16 18 Temp: 36.5 C (97.7 F) 36.9 C (98.4 F) 36.8 C (98.2 F) 36.2 C (97.2 F) TempSrc: Temporal SpO2: 94% 94% 95% 94% Weight: Height: Last I/O: I/O last 3 completed shifts: In: 1951.7 (18.5 mL/kg) [P.O.:1040; I.V.:911.7 (8.6 mL/kg)] Out: - (0 mL/kg) Weight: 105.8 kg Physical Exam: GEN: healthy appearing, appears stated age, NAD CV: RRR, no m/r/g, no LE edema LUNGS: CTAB, no w/r/c ABD: soft, NT, ND, NBS SKIN: no rashes MSK; no gross deformities, normal joints NEURO: A+Ox3, no FND PSYCH: appropriate mood, affect Inpatient Medications: aspirin, 81 mg, oral, Daily atorvastatin, 40 mg, oral, Nightly isosorbide mononitrate ER, 30 mg, oral, Daily metoprolol tartrate, 25 mg, oral, BID pantoprazole, 40 mg, oral, Daily PRN Medications PRN medications: acetaminophen OR acetaminophen OR acetaminophen, alum-mag hydroxide-simeth, heparin, melatonin, nitroglycerin, ondansetron OR ondansetron, polyethylene glycol Continuous Medications: heparin, 0-4,000 Units/hr, Last Rate: 1,200 Units/hr (07/22/23 1648) LABS AND IMAGING: Labs: Results for orders placed or performed during the hospital encounter of 07/19/23 (from the past 24 hour(s)) Heparin Assay, UFH Result Value Ref Range Heparin Unfractionated 0.5 See Comment Below for Therapeutic Ranges IU/mL Heparin Assay Result Value Ref Range Heparin Unfractionated 0.5 See Comment Below for Therapeutic Ranges IU/mL ECG 12 Lead Result Value Ref Range Ventricular Rate 67 BPM Atrial Rate 67 BPM OH Interval 152 ms QRS Duration 82 ms QT Interval 360 ms QTC Calculation(Bazett) 380 ms P [place] 31 degrees R [place] 19 degrees T [place] -25 degrees QRS Count 11 beats Q Onset 222 ms P Onset 146 ms P Offset 200 ms T Offset 402 ms QTC Fredericia 373 ms Imaging: ECG 12 Lead Normal sinus rhythm Inferior infarct (cited on or before 19-JUL-2023) Abnormal ECG When compared with ECG of 22-JUL-2023 06:48, No significant change was found Robert Smiley is a 62 y.o. male on day 4 of admission presenting with Acute myocardial infarction due to left coronary artery occlusion (CMS/HCC). Subjective No acute overnight events. Remains afebrile, normotensive, maintaining sinus rhythm with adequate saturations on room air. IV heparin continues to infuse with therapeutic assays, to be discontinued at 4 AM the morning before surgery. No reports of chest pain at rest or with activity, ambulating in halls freely. Plan for surgical revascularization on 07/24. Objective Physical Exam Constitutional: General: He is not in acute distress. HENT: Head: Normocephalic. Nose: Nose normal. Mouth/Throat: Mouth: Mucous membranes are moist. Eyes: Pupils: Pupils are equal, round, and reactive to light. Cardiovascular: Rate and Rhythm: Normal rate and regular rhythm. Pulses: Normal pulses. Heart sounds: Normal heart sounds. Pulmonary: Effort: Pulmonary effort is normal. Breath sounds: Normal breath sounds. Abdominal: General: Bowel sounds are normal. Genitourinary: Comments: Voiding clear yellow Musculoskeletal: General: Normal range of motion. Cervical back: Normal range of motion. Right lower leg: Edema present. Left lower leg: No edema. Skin: General: Skin is warm and dry. Neurological: General: No focal deficit present. Mental Status: He is alert and oriented to person, place, and time. Psychiatric: Mood and Affect: Mood normal. Last Recorded Vitals Blood pressure 120/59, pulse 66, temperature 36.2 C (97.2 F), resp. rate 18, height 1.727 m (5' 8 ), weight 106 kg (233 lb 3.2 oz), SpO2 94 %. Intake/Output last 3 Shifts: I/O last 3 completed shifts: In: 1951.7 (18.5 mL/kg) [P.O.:1040; I.V.:911.7 (8.6 mL/kg)] Out: - (0 mL/kg) Weight: 105.8 kg Relevant Results Scheduled medications aspirin, 81 mg, oral, Daily atorvastatin, 40 mg, oral, Nightly isosorbide mononitrate ER, 30 mg, oral, Daily metoprolol tartrate, 25 mg, oral, BID pantoprazole, 40 mg, oral, Daily Continuous medications heparin, 0-4,000 Units/hr, Last Rate: 1,200 Units/hr (07/22/23 1648) PRN medications PRN medications: acetaminophen OR acetaminophen OR acetaminophen, alum-mag hydroxide-simeth, heparin, melatonin, nitroglycerin, ondansetron OR ondansetron, polyethylene glycol Results for orders placed or performed during the hospital encounter of 07/19/23 (from the past 24 hour(s)) Heparin Assay, UFH Result Value Ref Range Heparin Unfractionated 0.5 See Comment Below for Therapeutic Ranges IU/mL Heparin Assay Result Value Ref Range Heparin Unfractionated 0.5 See Comment Below for Therapeutic Ranges IU/mL ECG 12 Lead Result Value Ref Range Ventricular Rate 67 BPM Atrial Rate 67 BPM OH Interval 152 ms QRS Duration 82 ms QT Interval 360 ms QTC Calculation(Bazett) 380 ms P [place] 31 degrees R [place] 19 degrees T [place] -25 degrees QRS Count 11 beats Q Onset 222 ms P Onset 146 ms P Offset 200 ms T Offset 402 ms QTC Fredericia 373 ms ECG 12 Lead Result Date: 07/23/2023 Normal sinus rhythm Inferior infarct (cited on or before 19-JUL-2023) Abnormal ECG When compared with ECG of 22-JUL-2023 06:48, No significant change was found ECG 12 Lead Result Date: 07/22/2023 Normal sinus rhythm Possible Inferior infarct (cited on or before 19-JUL-2023) Abnormal ECG When compared with ECG of 21-JUL-2023 06:27, (unconfirmed) No significant change was found Confirmed by Courtney Shrestha ([id number]) on 07/22/2023 7:37:18 AM Assessment/Plan Principal Problem: Acute myocardial infarction due to left coronary artery occlusion (CMS/HCC) Active Problems: Hyperlipidemia 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 Presented to OSH c/o midsternal CP that woke him from sleep. Ruled in as NSTEMI. Underwent coronary angiogram revealing diffuse TVD. Pt transferred to [facility] for consideration of surgical revascularization. -Discussed with Dr. Peck -For CABG Monday 07/24 (to allow for Plavix washout) -Medical management per Cardiology; appreciate assistance -ASA and Statin daily -Hold Plavix; will need resumed post operatively for ACS/NSTEMI -Metoprolol 25mg BID -Imdur 30mg daily -Heparin drip per protocol -cardiac diet -IS education -Activity as tolerated -pre-op testing has been completed -thank you for this consult HTN; HLD -Statin daily -Metoprolol 25mg BID -Imdur 30mg daily -optimize medical management as hemodynamics allow I spent 30 minutes in the professional and overall care of this patient. CHRISTY Evans [facility] Progress Note Rounding ANTONIO/Fire Hose Curer: CHRISTY Saenz, Dr. Heraclio Benitez Primary Fire Hose Curer: Dr Horton Date: 07/22/2023 Patient: Robert Smiley Date of : 1960 Admit Date: 07/19/2023 SUBJECTIVE: 07/22/23 Patient is awake and alert and oriented x 3 he states that he is not having any chest pain I spoke to him at length he is well-informed of plan of care that we are going to do the CABG on Tuesday answered all of his questions Telemetry is normal sinus rhythm with a Ke lesional PVC 07/21/23 Patient is awake and alert and oriented x 3. States he had a little indigestion this morning spoke to him at length he denies any chest pain or shortness of breath Telemetry is normal sinus rhythm with occasional PVC EKG is normal sinus rhythm has ST depression in inferior 07/20/23 Patient is resting quietly spoke to him at length he discussed at length with CT surgery they are planning for CABG on Tuesday He denies chest pain or shortness of breath Telemetry is normal sinus rhythm with occasional PVCs EKG is normal sinus rhythm no acute change 07/19/23 Robert Smiley is a 62 y.o. male patient who is being at the request of Dr. Salgado for inpatient consultation of angina. He was admitted on 07/19/2023. Previous [facility] and [facility] records have been reviewed in detail. Patient with a history of CAD, hypertension dyslipidemia was transferred from [facility] for CABG evaluation. On Tuesday the patient developed chest pain that radiated down his left arm along with chest pain he went to [facility] they transferred him to [facility] for heart catheterization LAD 95% Circumflex 95% RCA 95 to 99% Patient states they put him on a heparin drip send and will be here for CABG consult. He states he does not have any chest pain, fever, chills, nausea, vomiting, PND, orthopnea, claudications at this present time. He states that he has had a couple stents in the past. EKG is normal sinus rhythm has ST depression in inferior VITALS: Vitals: 07/21/23 1456 07/21/23 1922 07/21/23 2328 07/22/23 0726 BP: 115/61 118/60 103/61 124/60 BP Location: Left arm Left arm Patient Position: Lying Lying Pulse: 74 76 70 72 Resp: 16 18 18 Temp: 36.7 C (98.1 F) 36.6 C (97.9 F) 36.6 C (97.9 F) 36.5 C (97.7 F) TempSrc: Temporal Temporal SpO2: 91% 93% 97% 92% Weight: Height: Intake/Output Summary (Last 24 hours) at 07/22/2023 1142 Last data filed at 07/22/2023 1029 Gross per 24 hour Intake 2431.73 ml Output -- Net 2431.73 ml Wt Readings from Last 4 Encounters: 07/19/23 106 kg (233 lb 3.2 oz) 07/18/23 108 kg (239 lb) CURRENT HOSPITAL MEDICATIONS: aspirin, 81 mg, oral, Daily atorvastatin, 40 mg, oral, Nightly isosorbide mononitrate ER, 30 mg, oral, Daily metoprolol tartrate, 25 mg, oral, BID pantoprazole, 40 mg, oral, Daily heparin, 0-4,000 Units/hr, Last Rate: 1,200 Units/hr (07/22/23 1029) Current Outpatient Medications Medication Instructions clopidogrel (PLAVIX) 75 mg, oral, Daily meloxicam (MOBIC) 7.5 mg, oral, Daily, Unsure if dose is correct
PHYSICAL EXAMINATION: GENERAL: Well developed, well nourished, in no acute distress. CHEST: Symmetric and nontender. NEURO/PSYCH: Alert and oriented times three with approppriate behavior and responses. NECK: Supple, no JVD, no bruit. LUNGS: Clear to auscultation bilaterally, normal respiratory effort. HEART: Rate and rhythm regular with no evident murmur, no gallop appreciated. There are no rubs, clicks or heaves. EXTREMITIES: Warm with good color, no clubbing or cyanosis. There is no edema noted. PERIPHERAL VASCULAR: Pulses present and equally palpable; 2+ throughout. LAB DATA: CBC: Results from last 7 days Lab Units 07/22/23 0426 07/20/23 0435 07/19/23 0600 WBC AUTO x10*3/uL 8.5 9.1 7.5 RBC AUTO x10*6/uL 5.00 4.89 5.00 HEMOGLOBIN g/dL 15.1 15.0 15.1 HEMATOCRIT % 44.3 43.0 44.3 MCV fL 89 88 89 MCH pg 30.2 30.7 30.2 MCHC g/dL 34.1 34.9 34.1 RDW % 13.0 12.8 12.8 PLATELETS AUTO x10*3/uL 250 254 248 CMP: Results from last 7 days Lab Units 07/21/2352107/20/2343407/19/23 0600 SODIUM mmol/L 137 137 137 POTASSIUM mmol/L 4.0 4.0 4.0 CHLORIDE mmol/L 106 106 104 CO2 mmol/L 22 23 26 BUN mg/dL 19 20 16 CREATININE mg/dL 1.07 1.15 1.06 GLUCOSE mg/dL 99 97 90 PROTEIN TOTAL g/dL -- -- 6.5 CALCIUM mg/dL 9.2 9.1 8.8 BILIRUBIN TOTAL mg/dL -- -- 0.6 ALK PHOS U/L -- -- 70 AST U/L -- -- 21 ALT U/L -- -- 13 BMP: Results from last 7 days Lab Units 07/21/2352107/20/2343407/19/23 0600 SODIUM mmol/L 137 137 137 POTASSIUM mmol/L 4.0 4.0 4.0 CHLORIDE mmol/L 106 106 104 CO2 mmol/L 22 23 26 BUN mg/dL 19 20 16 CREATININE mg/dL 1.07 1.15 1.06 CALCIUM mg/dL 9.2 9.1 8.8 GLUCOSE mg/dL 99 97 90 Magnesium: Results from last 7 days Lab Units 07/21/2352107/20/2343407/19/23 0600 MAGNESIUM mg/dL 2.01 1.93 1.98 Troponin: Results from last 7 days Lab Units 07/19/23 0600 TROPHS ng/L 2,181* BNP: Lipid Panel: Results from last 7 days Lab Units 07/19/23 1543 HDL mg/dL 55.7 CHOLESTEROL/HDL RATIO 3.7 VLDL mg/dL 30 TRIGLYCERIDES mg/dL 148 NON HDL CHOL. mg/dL 150* DIAGNOSTIC TESTING: @No results found for this or any previous visit. ECG 12 Lead Result Date: 07/20/2023 Normal sinus rhythm Possible Inferior infarct (cited on or before 19-JUL-2023) Abnormal ECG When compared with ECG of 19-JUL-2023 07:06, No significant change was found Carotid duplex bilateral Result Date: 07/19/2023 Interpreted By: Hector Smith, STUDY: [facility] US CAROTID ARTERY DUPLEX BILATERAL; 07/19/2023 2:38 pm INDICATION: Signs/Symptoms:pre-op CABG; r/o carotid stenosis. COMPARISON: None. ACCESSION NUMBER(S): [id number] ORDERING CLINICIAN: MARYANNE YOU TECHNIQUE: Vascular ultrasound of the extracranial carotid system was performed bilaterally. Griffith scale, color Doppler and spectral Doppler waveform analysis was performed. FINDINGS: RIGHT: On the right There is no evidence of atheromatous plaques in the common carotid arteries, visualized portions of the internal carotid arteries, and the proximal external carotid arteries. Doppler studies demonstrate normal flow pattern without evidence of turbulent flow.. The peak systolic velocities are as follows: RIGHT SIDE PEAK SYSTOLIC VELOCITY TABLE: CCA 116 cm/sec. ICA 58 cm/sec. ECA 105 cm/sec. The ratio of the peak systolic velocity of the right ICA/CCA is 0.5. RIGHT VERTEBRAL ARTERY: The right vertebral artery demonstrates proximal normal anterograde flow LEFT: On the left There is no evidence of atheromatous plaques in the common carotid arteries, visualized portions of the internal carotid arteries, and the proximal external carotid arteries. Doppler studies demonstrate normal flow pattern without evidence of turbulent flow.. The peak systolic velocities are as follows: LEFT SIDE PEAK SYSTOLIC VELOCITY TABLE: CCA 99 cm/sec. ICA 54 cm/sec. ECA 98 cm/sec. The ratio of the peak systolic velocity of the left ICA/CCA is 0.6. LEFT VERTEBRAL ARTERY: The left vertebral artery demonstrates proximal normal anterograde flow Normal flow pattern without evidence of hemodynamically relevant stenosis or atheromatous plaques in the visualized portions of the carotid circulation as described above. MACRO: None Signed by: Hector Smith 07/19/2023 3:43 PM Dictation workstation: [id number] XR chest 2 views Result Date: 07/19/2023 Interpreted By: Hector Smith, STUDY: XR CHEST 2 VIEWS; 07/19/2023 2:08 pm INDICATION: Signs/Symptoms:pre-op CABG. COMPARISON: None. ACCESSION NUMBER(S): [id number] ORDERING CLINICIAN: MARYANNE YOU FINDINGS: CARDIOMEDIASTINAL SILHOUETTE: Cardiomediastinal silhouette is normal in size and configuration. LUNGS: Mild left basilar atelectasis is present. No focal consolidation. No pleural effusion or pneumothorax. ABDOMEN: No remarkable upper abdominal findings. BONES: Multilevel predominantly anterior endplate spurring/partially bridging osteophytes are present in the thoracic spine. 1. Mild left basilar atelectasis. No focal consolidation. MACRO: None. Signed by: Hector Smith 07/19/2023 3:41 PM Dictation workstation: [id number] Transthoracic Echo (TTE) Complete Result Date: 07/19/2023 [place] [id number] TRANSTHORACIC ECHOCARDIOGRAM REPORT Patient Name: ROBERT SMILEY Reading Physician: [id number] Dev Ding MD, [facility] Study Date: 07/19/2023 Ordering Provider: [id number] EDUARDO FERRO MRN/PID: [id number] Fellow: Nurse: Mendoza Dowd RN Date of /Age: 5 1960 / 62 years Complaint Investigations Officer: Chloé Lyman RDCS Gender: M Additional Staff: Height: 172.72 cm Admit Date: 07/18/2023 Weight: 105.69 kg Admission Status: Inpatient - Routine BSA / BMI: 2.18 m2 / 35.43 Department Location: [place] [address] Echo Lab Blood Pressure: 112 /58 mmHg Study Type: TRANSTHORACIC ECHO (TTE) COMPLETE Diagnosis/ICD: Encounter for preprocedural cardiovascular examination-Z01.810 Indication: PRE-OP CABG CPT Codes: Echo Complete w Full Doppler-[id number] Patient History: Pertinent History: CAD, Hyperlipidemia and MA. Study Detail: The following Echo studies were performed: 2D, M-Mode, Doppler and color flow. Definity used as a contrast agent for endocardial border definition. Total contrast used for this procedure was 2 mL via IV push. The patient was awake. PHYSICIAN INTERPRETATION: Left Ventricle: Left ventricular systolic function is normal, with an estimated ejection fraction of 55-60%. There are no regional wall motion abnormalities. The left ventricular cavity size is normal. The left ventricular septal wall thickness is mildly increased. There is normal left ventricular posterior wall thickness. Spectral Doppler shows an impaired relaxation pattern of left ventricular diastolic filling. Left Atrium: The left atrium is normal in size. Left atrial volume index 18.5 mL/m2. Right Ventricle: The right ventricle is normal in size. There is normal right ventricular global systolic function. Normal right ventricular chamber size and function. Right Atrium: The right atrium is normal in size. Aortic Valve: The aortic valve was not well visualized. There is mild aortic valve cusp calcification. There is no evidence of aortic valve regurgitation. The peak instantaneous gradient of the aortic valve is 7.8 mmHg. The mean gradient of the aortic valve is 4.0 mmHg. Mitral Valve: The mitral valve is normal in structure. There is trace mitral valve regurgitation. Tricuspid Valve: The tricuspid valve is structurally normal. There is trace tricuspid regurgitation. The right ventricular systolic pressure is unable to be estimated. Trivial tricuspid regurgitation. Pulmonic Valve: The pulmonic valve is structurally normal. There is no indication of pulmonic valve regurgitation. Pericardium: There is a trivial pericardial effusion. Aorta: The aortic root is normal. Systemic Veins: The inferior vena cava appears to be of normal size. There is IVC inspiratory collapse greater than 50%. CONCLUSIONS: 1. Left ventricular systolic function is normal with a 55-60% estimated ejection fraction. 2. Spectral Doppler shows an impaired relaxation pattern of left ventricular diastolic filling. 3. Normal right ventricular chamber size and function. 4. Trivial tricuspid regurgitation. 5. No previous available for comparison. QUANTITATIVE DATA SUMMARY: 2D MEASUREMENTS: Normal Ranges: Ao Root d: 2.90 cm (2.0-3.7cm) LAs: 3.70 cm (2.7-4.0cm) IVSd: 1.20 cm (0.6-1.1cm) LVPWd: 0.93 cm (0.6-1.1cm) LVIDd: 3.80 cm (3.9-5.9cm) LVIDs: 2.60 cm LV Mass Index: 58.8 g/m2 LV % FS 31.6 % LA VOLUME: Normal Ranges: LA Vol A4C: 37.5 ml (22+/-6mL/m2) LA Vol A2C: 40.3 ml LA Vol BP: 41.3 ml LA Vol Index A4C: 17.2ml/m2 LA Vol Index A2C: 18.5 ml/m2 LA Vol Index BP: 19.0 ml/m2 LA Area A4C: 15.7 cm2 LA Area A2C: 15.3 cm2 LA Major [place] A4C: 5.6 cm LA Major [place] A2C: 4.9 cm LA Volume Index: 17.9 ml/m2 RA VOLUME BY A/L METHOD: Normal Ranges: RA Vol A4C: 33.3 ml (8.3-19.5ml) RA Vol Index A4C: 15.3 ml/m2 RA Area A4C: 13.7 cm2 RA Major [place] A4C: 4.8 cm AORTA MEASUREMENTS: Normal Ranges: Asc Ao, d: 3.10 cm (2.1-3.4cm) LV SYSTOLIC FUNCTION BY 2D PLANIMETRY (MOD): Normal Ranges: EF-A4C View: 58.9 % (>=55%) EF-A2C View: 54.9 % EF-Biplane: 58.6 % LV DIASTOLIC FUNCTION: Normal Ranges: MV Peak E: 0.85 m/s (0.7-1.2 m/s) MV Peak A: 0.80 m/s (0.42-0.7 m/s) E/A Ratio: 1.07 (1.0-2.2) MV e' 0.11 m/s (>8.0) MV lateral e' 0.11 m/s MV medial e' 0.09 m/s E/e' Ratio: 7.73 (<8.0) MITRAL VALVE: Normal Ranges: MV DT: 229 msec (150-240msec) AORTIC VALVE: Normal Ranges: AoV Vmax: 1.40 m/s (<=1.7m/s) AoV Peak P.8 mmHg (<20mmHg) AoV Mean P.0 mmHg (1.7-11.5mmHg) LVOT Max Gael: 1.20 m/s (<=1.1m/s) AoV VTI: 24.60 cm (18-25cm) LVOT VTI: 24.30 cm LVOT Diameter: 2.00 cm (1.8-2.4cm) AoV Area, VTI: 3.10 cm2 (2.5-5.5cm2) AoV Area,Vmax: 2.69 cm2 (2.5-4.5cm2) AoV Dimensionless Index: 0.99 RIGHT VENTRICLE: RV Basal 3.11 cm RV Mid 2.26 cm RV Major 7.5 cm TAPSE: 25.4 mm RV s' 0.14 m/s TRICUSPID VALVE/RVSP: Normal Ranges: IVC Diam: 1.65 cm PULMONIC VALVE: Normal Ranges: PV Accel Time: 77 msec (>120ms) PV Max Gael: 1.0 m/s (0.6-0.9m/s) PV Max P.7 mmHg [id number] Dev Ding MD, [facility] Electronically signed on 07/19/2023 at 2:33:[address] chest wo IV contrast Result Date: 07/19/2023 Interpreted By: Hector Smith, STUDY: CT CHEST WO IV CONTRAST; 07/19/2023 1:48 pm INDICATION: Signs/Symptoms:pre-op CABG; please assess ascending aorta for atherosclerosis and size. COMPARISON: None. ACCESSION NUMBER(S): [id number] ORDERING CLINICIAN: MARYANNE YOU TECHNIQUE: Contiguous unenhanced axial images were obtained through the chest. Images were reformatted in axial, coronal, and sagittal planes. FINDINGS: LUNGS and AIRWAYS: Small bands of subsegmental atelectasis or scar are present in the left lower lobe anteriorly as well as the lingula. Mild dependent atelectasis present bilaterally. No focal consolidation. No pleural effusion or pneumothorax. MEDIASTINUM and LITO, LOWER NECK AND AXILLA: No mediastinal or hilar lymphadenopathy is seen. No axillary lymphadenopathy. HEART and VESSELS: There is no thoracic aortic aneurysm. Ascending thoracic aorta is uniform in caliber measuring approximately 3.1 x 3.1 cm in transverse and AP diameters. Small irregular calcifications are seen at the aortic root level. No additional calcification is seen in the ascending thoracic aorta. Small atherosclerotic calcification is seen in the distal aortic arch. Descending thoracic aorta is uniform in caliber measuring 2.4 cm in diameter. Coronary artery calcifications and/or stents are present. No pericardial effusion. Heart is not significantly enlarged. UPPER ABDOMEN: Gallbladder is not abnormally distended and contains mixed attenuation gallstone in the dependent portion toward the base. No pericholecystic inflammation is seen. No biliary dilation. CHEST WALL and OSSEOUS STRUCTURES: There is mild S-shaped scoliosis of the thoracic spine. Multilevel disc space narrowing and predominantly anterior endplate spurring/partially bridging osteophytes are most prominent in the mid-lower thoracic spine. 1. No thoracic aortic aneurysm. Ascending thoracic aorta measures 3.1 cm in diameter. 2. Irregular calcification at the aortic root level. No evidence of calcification in the ascending thoracic aorta. 3. Cholelithiasis. No pericholecystic inflammation. No biliary dilation. MACRO: None. Signed by: Hector Smith 07/19/2023 2:09 PM Dictation workstation: [id number] ECG 12 lead Result Date: 07/19/2023 Normal sinus rhythm Possible Inferior infarct , age undetermined Abnormal ECG No previous ECGs available Confirmed by Courtney Shrestha ([id number]) on 07/19/2023 7:31:32 AM Carotid duplex bilateral Final Result Normal flow pattern without evidence of hemodynamically relevant stenosis or atheromatous plaques in the visualized portions of the carotid circulation as described above. MACRO: None Signed by: Hector Smith 07/19/2023 3:43 PM Dictation workstation: [id number] XR chest 2 views Final Result 1. Mild left basilar atelectasis. No focal consolidation. MACRO: None. Signed by: Hector Smith 07/19/2023 3:41 PM Dictation workstation: [id number] CT chest wo IV contrast Final Result 1. No thoracic aortic aneurysm. Ascending thoracic aorta measures 3.1 cm in diameter. 2. Irregular calcification at the aortic root level. No evidence of calcification in the ascending thoracic aorta. 3. Cholelithiasis. No pericholecystic inflammation. No biliary dilation. MACRO: None. Signed by: Hector Smith 07/19/2023 2:09 PM Dictation workstation: [id number] Transthoracic Echo (TTE) Complete Final Result Transthoracic Echo (TTE) Complete Result Date: 07/19/2023 [place] [id number] TRANSTHORACIC ECHOCARDIOGRAM REPORT Patient Name: ROBERT SMILEY Reading Physician: [id number] Dev Ding MD, [facility] Study Date: 07/19/2023 Ordering Provider: [id number] EDUARDO FERRO MRN/PID: [id number] Fellow: Nurse: Mendoza Dowd RN Date of /Age: 5 1960 / 62 years Complaint Investigations Officer: Chloé Lyman SAYRA Gender: M Additional Staff: Height: 172.72 cm Admit Date: 07/18/2023 Weight: 105.69 kg Admission Status: Inpatient - Routine BSA / BMI: 2.18 m2 / 35.43 Department Location: [facility] kg/m2 Echo Lab Blood Pressure: 112 /58 mmHg Study Type: TRANSTHORACIC ECHO (TTE) COMPLETE Diagnosis/ICD: Encounter for preprocedural cardiovascular examination-Z01.810 Indication: PRE-OP CABG CPT Codes: Echo Complete w Full Doppler-56562 Patient History: Pertinent History: CAD, Hyperlipidemia and MA. Study Detail: The following Echo studies were performed: 2D, M-Mode, Doppler and color flow. Definity used as a contrast agent for endocardial border definition. Total contrast used for this procedure was 2 mL via IV push. The patient was awake. PHYSICIAN INTERPRETATION: Left Ventricle: Left ventricular systolic function is normal, with an estimated ejection fraction of 55-60%. There are no regional wall motion abnormalities. The left ventricular cavity size is normal. The left ventricular septal wall thickness is mildly increased. There is normal left ventricular posterior wall thickness. Spectral Doppler shows an impaired relaxation pattern of left ventricular diastolic filling. Left Atrium: The left atrium is normal in size. Left atrial volume index 18.5 mL/m2. Right Ventricle: The right ventricle is normal in size. There is normal right ventricular global systolic function. Normal right ventricular chamber size and function. Right Atrium: The right atrium is normal in size. Aortic Valve: The aortic valve was not well visualized. There is mild aortic valve cusp calcification. There is no evidence of aortic valve regurgitation. The peak instantaneous gradient of the aortic valve is 7.8 mmHg. The mean gradient of the aortic valve is 4.0 mmHg. Mitral Valve: The mitral valve is normal in structure. There is trace mitral valve regurgitation. Tricuspid Valve: The tricuspid valve is structurally normal. There is trace tricuspid regurgitation. The right ventricular systolic pressure is unable to be estimated. Trivial tricuspid regurgitation. Pulmonic Valve: The pulmonic valve is structurally normal. There is no indication of pulmonic valve regurgitation. Pericardium: There is a trivial pericardial effusion. Aorta: The aortic root is normal. Systemic Veins: The inferior vena cava appears to be of normal size. There is IVC inspiratory collapse greater than 50%. CONCLUSIONS: 1. Left ventricular systolic function is normal with a 55-60% estimated ejection fraction. 2. Spectral Doppler shows an impaired relaxation pattern of left ventricular diastolic filling. 3. Normal right ventricular chamber size and function. 4. Trivial tricuspid regurgitation. 5. No previous available for comparison. QUANTITATIVE DATA SUMMARY: 2D MEASUREMENTS: Normal Ranges: Ao Root d: 2.90 cm (2.0-3.7cm) LAs: 3.70 cm (2.7-4.0cm) IVSd: 1.20 cm (0.6-1.1cm) LVPWd: 0.93 cm (0.6-1.1cm) LVIDd: 3.80 cm (3.9-5.9cm) LVIDs: 2.60 cm LV Mass Index: 58.8 g/m2 LV % FS 31.6 % LA VOLUME: Normal Ranges: LA Vol A4C: 37.5 ml (22+/-6mL/m2) LA Vol A2C: 40.3 ml LA Vol BP: 41.3 ml LA Vol Index A4C: 17.2ml/m2 LA Vol Index A2C: 18.5 ml/m2 LA Vol Index BP: 19.0 ml/m2 LA Area A4C: 15.7 cm2 LA Area A2C: 15.3 cm2 LA Major [place] A4C: 5.6 cm LA Major [place] A2C: 4.9 cm LA Volume Index: 17.9 ml/m2 RA VOLUME BY A/L METHOD: Normal Ranges: RA Vol A4C: 33.3 ml (8.3-19.5ml) RA Vol Index A4C: 15.3 ml/m2 RA Area A4C: 13.7 cm2 RA Major [place] A4C: 4.8 cm AORTA MEASUREMENTS: Normal Ranges: Asc Ao, d: 3.10 cm (2.1-3.4cm) LV SYSTOLIC FUNCTION BY 2D PLANIMETRY (MOD): Normal Ranges: EF-A4C View: 58.9 % (>=55%) EF-A2C View: 54.9 % EF-Biplane: 58.6 % LV DIASTOLIC FUNCTION: Normal Ranges: MV Peak E: 0.85 m/s (0.7-1.2 m/s) MV Peak A: 0.80 m/s (0.42-0.7 m/s) E/A Ratio: 1.07 (1.0-2.2) MV e' 0.11 m/s (>8.0) MV lateral e' 0.11 m/s MV medial e' 0.09 m/s E/e' Ratio: 7.73 (<8.0) MITRAL VALVE: Normal Ranges: MV DT: 229 msec (150-240msec) AORTIC VALVE: Normal Ranges: AoV Vmax: 1.40 m/s (<=1.7m/s) AoV Peak P.8 mmHg (<20mmHg) AoV Mean P.0 mmHg (1.7-11.5mmHg) LVOT Max Gael: 1.20 m/s (<=1.1m/s) AoV VTI: 24.60 cm (18-25cm) LVOT VTI: 24.30 cm LVOT Diameter: 2.00 cm (1.8-2.4cm) AoV Area, VTI: 3.10 cm2 (2.5-5.5cm2) AoV Area,Vmax: 2.69 cm2 (2.5-4.5cm2) AoV Dimensionless Index: 0.99 RIGHT VENTRICLE: RV Basal 3.11 cm RV Mid 2.26 cm RV Major 7.5 cm TAPSE: 25.4 mm RV s' 0.14 m/s TRICUSPID VALVE/RVSP: Normal Ranges: IVC Diam: 1.65 cm PULMONIC VALVE: Normal Ranges: PV Accel Time: 77 msec (>120ms) PV Max Gael: 1.0 m/s (0.6-0.9m/s) PV Max P.7 mmHg [id number] Dev Ding MD, [facility] Electronically signed on 07/19/2023 at 2:33:57 PM Final RADIOLOGY: Carotid duplex bilateral Final Result Normal flow pattern without evidence of hemodynamically relevant stenosis or atheromatous plaques in the visualized portions of the carotid circulation as described above. MACRO: None Signed by: Hector Smith 07/19/2023 3:43 PM Dictation workstation: [id number] XR chest 2 views Final Result 1. Mild left basilar atelectasis. No focal consolidation. MACRO: None. Signed by: Hector Smith 07/19/2023 3:41 PM Dictation workstation: [id number] CT chest wo IV contrast Final Result 1. No thoracic aortic aneurysm. Ascending thoracic aorta measures 3.1 cm in diameter. 2. Irregular calcification at the aortic root level. No evidence of calcification in the ascending thoracic aorta. 3. Cholelithiasis. No pericholecystic inflammation. No biliary dilation. MACRO: None. Signed by: Hector Smith 07/19/2023 2:09 PM Dictation workstation: [id number] Transthoracic Echo (TTE) Complete Final Result PROBLEM LIST Patient Active Problem List Diagnosis Acute myocardial infarction due to left coronary artery occlusion (CMS/HCC) Hyperlipidemia Coronary artery disease of [place] artery of [place] heart with stable angina pectoris (CMS/HCC) Asperger's syndrome Elevated troponin ASSESSMENT: CAD triple-vessel disease Hypertension Dyslipidemia PLAN: Patient seen and examined in conjunction with Troy Ferro APRN and agree with the evaluation as noted above. 62-year-old gentleman who was transferred from [facility] for possible angina. He has a history of CAD hypertension dyslipidemia and presented to the hospital with unstable angina with radiation to the left arm. Emergent cardiac catheterization showed severe triple-vessel disease as noted above with 95% LAD, left circumflex as well as RCA. Patient was transferred for CABG. He is currently chest pain-free. EKG shows sinus rhythm with inferolateral ST depression. Cardiac exam reveals regular first and second heart sound, no murmurs are heard. Chest is clear to auscultation. ASSESSMENT AND PLAN: 1. CAD: With severe triple-vessel disease, awaiting cardiac evaluation. In the meantime, we will get an echocardiogram to rule out any significant valvular abnormalities and we will hold his Plavix for impending surgery. Full recommendations to be based on CV surgical evaluation. 2.Hypertension: We will continue to optimize blood pressure control. 3. Dyslipidemia: Continue with her current high intensity lipid-lowering therapy. AKBeatriz 07/20/23 Tele monitoring Continue the heparin drip Plan for CABG on Tuesday Daily EKGs Further recommendations per Dr Emmanuel Ferro CNP [facility] Of note, this documentation is completed using the [employer] system (voice recognition software). There may be spelling and/or grammatical errors that were not corrected prior to final submission. Please do not hesitate to call with questions. Patient seen and examined in conjunction with Troy Ferro APRN and agree with the evaluation as noted above. Patient remains in status quo, continues to be chest pain-free. He is awaiting CABG tentatively scheduled for next week Tuesday pending washout of Plavix. Preop echo shows normal LV function with no gross valvular abnormalities as noted above. Will continue with her other current cardiac medications and plan for surgery as scheduled. AKBeatriz 07/21/23 Tele monitoring Aspirin 81 mg daily Lipitor 40 mg daily Imdur 30 mg daily Lopressor 25 mg p.o. twice daily Continue the heparin drip Plan for CABG on Tuesday Further recommendations per Dr Benitez Patient seen and examined in conjunction with Troy Ferro APRN and agree with the evaluation as noted above. Patient continues to do well with no recurrent chest pain. Awaiting surgery as scheduled. Continues to maintain sinus rhythm with no significant arrhythmias on the monitor. Will continue current cardiac medications and follow the patient postoperatively. AKBeatriz 07/22/23 Tele monitoring Continue the heparin drip for now Plan for CABG on Tuesday Further recommendations per Dr Benitez Patient continues to do well, denies any chest pain or shortness of breath with ambulation. Remains in sinus rhythm with no acute symptoms or arrhythmias on the monitor. Will continue to follow the patient pending CABG and postoperatively. AKBeatriz ASSESSMENT & PLAN: NSTEMI Hx of CAD s/p PCI (2016) HTN DLD -p/w anginal CP to OSH, found to have NSTEMI, cath showed diffuse triple vessel disease, and transferred to [facility] for CABG eval -TTE here showed normal LVEF, no RWMA, no sig valvulopathy Plan: -CTS following, tentative plan for CABG on Tue as needs x5d Plavix washout (last dose 07/17), preoperative testing done -cardiology following -ASA, high intensity statin, hold Plavix for now -hep gtt -metoprolol, Imdur -tele monitoring Vte ppx already on hep gtt Attila Salgado MD SUBJECTIVE NAEON. No complaints. OBJECTIVE: Last Recorded Vitals: Vitals: 07/21/23 1456 07/21/23 1922 07/21/23 2328 07/22/23 0726 BP: 115/61 118/60 103/61 124/60 BP Location: Left arm Left arm Patient Position: Lying Lying Pulse: 74 76 70 72 Resp: 16 18 18 Temp: 36.7 C (98.1 F) 36.6 C (97.9 F) 36.6 C (97.9 F) 36.5 C (97.7 F) TempSrc: Temporal Temporal SpO2: 91% 93% 97% 92% Weight: Height: Last I/O: I/O last 3 completed shifts: In: 2165.9 (20.5 mL/kg) [P.O.:1320; I.V.:845.9 (8 mL/kg)] Out: - (0 mL/kg) Weight: 105.8 kg Physical Exam: GEN: healthy appearing, appears stated age, NAD CV: RRR, no m/r/g, no LE edema LUNGS: CTAB, no w/r/c ABD: soft, NT, ND, NBS SKIN: no rashes MSK; no gross deformities, normal joints NEURO: A+Ox3, no FND PSYCH: appropriate mood, affect Inpatient Medications: aspirin, 81 mg, oral, Daily atorvastatin, 40 mg, oral, Nightly isosorbide mononitrate ER, 30 mg, oral, Daily metoprolol tartrate, 25 mg, oral, BID pantoprazole, 40 mg, oral, Daily PRN Medications PRN medications: acetaminophen OR acetaminophen OR acetaminophen, alum-mag hydroxide-simeth, heparin, melatonin, nitroglycerin, ondansetron OR ondansetron, polyethylene glycol Continuous Medications: heparin, 0-4,000 Units/hr, Last Rate: 1,200 Units/hr (07/21/232002) LABS AND IMAGING: Labs: Results for orders placed or performed during the hospital encounter of 07/19/23 (from the past 24 hour(s)) SST TOP Result Value Ref Range Extra Tube Hold for add-ons. PST Top Result Value Ref Range Extra Tube Hold for add-ons. CBC Result Value Ref Range WBC 8.5 4.4 - 11.3 x10*3/uL nRBC 0.0 0.0 - 0.0 /100 WBCs RBC 5.00 4.50 - 5.90 x10*6/uL Hemoglobin 15.1 13.5 - 17.5 g/dL Hematocrit 44.3 41.0 - 52.0 % MCV 89 80 - 100 fL MCH 30.2 26.0 - 34.0 pg MCHC 34.1 32.0 - 36.0 g/dL RDW 13.0 11.5 - 14.5 % Platelets 250 150 - 450 x10*3/uL ECG 12 Lead Result Value Ref Range Ventricular Rate 66 BPM Atrial Rate 66 BPM OH Interval 144 ms QRS Duration 84 ms QT Interval 376 ms QTC Calculation(Bazett) 394 ms P [place] 6 degrees R [place] 24 degrees T [place] -30 degrees QRS Count 11 beats Q Onset 212 ms P Onset 140 ms P Offset 190 ms T Offset 400 ms QTC Fredericia 388 ms Imaging: ECG 12 Lead Normal sinus rhythm Possible Inferior infarct (cited on or before 19-JUL-2023) Abnormal ECG When compared with ECG of 21-JUL-2023 06:27, (unconfirmed) No significant change was found Confirmed by Courtney Shrestha ([id number]) on 07/22/2023 7:37:18 AM ECG 12 Lead Normal sinus rhythm Inferior infarct (cited on or before 19-JUL-2023) T wave abnormality, consider lateral ischemia Abnormal ECG When compared with ECG of 20-JUL-2023 06:47, No significant change was found Confirmed by Courtney Shrestha ([id number]) on 07/22/2023 7:25:23 AM Patient will be going for CABG on Tuesday per cardiology. Patient lives alone in [place], [place], states his sister and brother in law live next door, they are willing to assist, and he is open to home care or SNF, whichever will be needed. Patient has family nurse practitioner, Geovanny Merrill in [place], [place], he is with [facility] [place], . Will continue to follow for further discharge needs, at this point, patient will be transferring to ICU post CABG, discharge plans will continue from there. Robert Smiley is a 62 y.o. male on day 2 of admission presenting with Acute myocardial infarction due to left coronary artery occlusion (CMS/HCC). Subjective No acute overnight events. Afebrile, maintaining sinus rhythm, normotensive with adequate saturations on room air. IV heparin continuing to infuse with therapeutic assays. No reports of chest pain or dyspnea at rest or with activity. Preoperative testing has been completed and reviewed. Plan for surgical revascularization on Monday 07/24. Objective Physical Exam Constitutional: General: He is not in acute distress. HENT: Head: Normocephalic. Nose: Nose normal. Mouth/Throat: Mouth: Mucous membranes are moist. Eyes: Pupils: Pupils are equal, round, and reactive to light. Cardiovascular: Rate and Rhythm: Normal rate and regular rhythm. Pulses: Normal pulses. Heart sounds: Normal heart sounds. Pulmonary: Effort: Pulmonary effort is normal. Breath sounds: Normal breath sounds. Abdominal: General: Bowel sounds are normal. Genitourinary: Comments: Voiding clear yellow Musculoskeletal: General: Normal range of motion. Cervical back: Normal range of motion. Right lower leg: Edema present. Left lower leg: No edema. Skin: General: Skin is warm and dry. Neurological: General: No focal deficit present. Mental Status: He is alert and oriented to person, place, and time. Psychiatric: Mood and Affect: Mood normal. Last Recorded Vitals Blood pressure 127/66, pulse 79, temperature 36.8 C (98.2 F), temperature source Temporal, resp. rate 16, height 1.727 m (5' 8 ), weight 106 kg (233 lb 3.2 oz), SpO2 91 %. Intake/Output last 3 Shifts: I/O last 3 completed shifts: In: 1535 (14.5 mL/kg) [P.O.:1535] Out: - (0 mL/kg) Weight: 105.8 kg Relevant Results Scheduled medications aspirin, 81 mg, oral, Daily atorvastatin, 40 mg, oral, Nightly isosorbide mononitrate ER, 30 mg, oral, Daily metoprolol tartrate, 25 mg, oral, BID pantoprazole, 40 mg, oral, Daily Continuous medications heparin, 0-4,000 Units/hr, Last Rate: 1,200 Units/hr (07/20/23 2250) PRN medications PRN medications: acetaminophen OR acetaminophen OR acetaminophen, alum-mag hydroxide-simeth, heparin, melatonin, nitroglycerin, ondansetron OR ondansetron, polyethylene glycol Results for orders placed or performed during the hospital encounter of 07/19/23 (from the past 24 hour(s)) Heparin Assay, UFH Result Value Ref Range Heparin Unfractionated 0.5 See Comment Below for Therapeutic Ranges IU/mL SST TOP Result Value Ref Range Extra Tube Hold for add-ons. Lavender Top Result Value Ref Range Extra Tube Hold for add-ons. Magnesium Result Value Ref Range Magnesium 2.01 1.60 - 2.40 mg/dL Basic metabolic panel Result Value Ref Range Glucose 99 74 - 99 mg/dL Sodium 137 136 - 145 mmol/L Potassium 4.0 3.5 - 5.3 mmol/L Chloride 106 98 - 107 mmol/L Bicarbonate 22 21 - 32 mmol/L Anion Gap 13 10 - 20 mmol/L Urea Nitrogen 19 6 - 23 mg/dL Creatinine 1.07 0.50 - 1.30 mg/dL eGFR 79 >60 mL/min/1.73m*2 Calcium 9.2 8.6 - 10.3 mg/dL Heparin Assay Result Value Ref Range Heparin Unfractionated 0.3 See Comment Below for Therapeutic Ranges IU/mL ECG 12 Lead Result Value Ref Range Ventricular Rate 76 BPM Atrial Rate 76 BPM OH Interval 142 ms QRS Duration 86 ms QT Interval 376 ms QTC Calculation(Bazett) 423 ms P [place] 30 degrees R [place] 24 degrees T [place] -39 degrees QRS Count 12 beats Q Onset 220 ms P Onset 149 ms P Offset 204 ms T Offset 408 ms QTC Fredericia 406 ms ECG 12 Lead Result Date: 07/21/2023 Normal sinus rhythm Inferior infarct (cited on or before 19-JUL-2023) T wave abnormality, consider lateral ischemia Abnormal ECG When compared with ECG of 20-JUL-2023 06:47, No significant change was found ECG 12 Lead Result Date: 07/20/2023 Normal sinus rhythm Possible Inferior infarct (cited on or before 19-JUL-2023) Abnormal ECG When compared with ECG of 19-JUL-2023 07:06, No significant change was found Confirmed by Courtney Shrestha ([id number]) on 07/20/2023 5:44:48 PM Carotid duplex bilateral Result Date: 07/19/2023 Interpreted By: Hector Smith, STUDY: [facility] CAROTID ARTERY DUPLEX BILATERAL; 07/19/2023 2:38 pm INDICATION: Signs/Symptoms:pre-op CABG; r/o carotid stenosis. COMPARISON: None. ACCESSION NUMBER(S): [id number] ORDERING CLINICIAN: MARYANNE YOU TECHNIQUE: Vascular ultrasound of the extracranial carotid system was performed bilaterally. Griffith scale, color Doppler and spectral Doppler waveform analysis was performed. FINDINGS: RIGHT: On the right There is no evidence of atheromatous plaques in the common carotid arteries, visualized portions of the internal carotid arteries, and the proximal external carotid arteries. Doppler studies demonstrate normal flow pattern without evidence of turbulent flow.. The peak systolic velocities are as follows: RIGHT SIDE PEAK SYSTOLIC VELOCITY TABLE: CCA 116 cm/sec. ICA 58 cm/sec. ECA 105 cm/sec. The ratio of the peak systolic velocity of the right ICA/CCA is 0.5. RIGHT VERTEBRAL ARTERY: The right vertebral artery demonstrates proximal normal anterograde flow LEFT: On the left There is no evidence of atheromatous plaques in the common carotid arteries, visualized portions of the internal carotid arteries, and the proximal external carotid arteries. Doppler studies demonstrate normal flow pattern without evidence of turbulent flow.. The peak systolic velocities are as follows: LEFT SIDE PEAK SYSTOLIC VELOCITY TABLE: CCA 99 cm/sec. ICA 54 cm/sec. ECA 98 cm/sec. The ratio of the peak systolic velocity of the left ICA/CCA is 0.6. LEFT VERTEBRAL ARTERY: The left vertebral artery demonstrates proximal normal anterograde flow Normal flow pattern without evidence of hemodynamically relevant stenosis or atheromatous plaques in the visualized portions of the carotid circulation as described above. MACRO: None Signed by: Hector Smith 07/19/2023 3:43 PM Dictation workstation: [id number] XR chest 2 views Result Date: 07/19/2023 Interpreted By: Hector Smith, STUDY: XR CHEST 2 VIEWS; 07/19/2023 2:08 pm INDICATION: Signs/Symptoms:pre-op CABG. COMPARISON: None. ACCESSION NUMBER(S): [id number] ORDERING CLINICIAN: MARYANNE YOU FINDINGS: CARDIOMEDIASTINAL SILHOUETTE: Cardiomediastinal silhouette is normal in size and configuration. LUNGS: Mild left basilar atelectasis is present. No focal consolidation. No pleural effusion or pneumothorax. ABDOMEN: No remarkable upper abdominal findings. BONES: Multilevel predominantly anterior endplate spurring/partially bridging osteophytes are present in the thoracic spine. 1. Mild left basilar atelectasis. No focal consolidation. MACRO: None. Signed by: Hector Smith 07/19/2023 3:41 PM Dictation workstation: [id number] Transthoracic Echo (TTE) Complete Result Date: 07/19/2023 [place] [id number] TRANSTHORACIC ECHOCARDIOGRAM REPORT Patient Name: ROBERT SMILEY Reading Physician: [id number] Dev Ding MD, [facility] Study Date: 07/19/2023 Ordering Provider: [id number] EDUARDO FERRO MRN/PID: [id number] Fellow: Nurse: Mendoza Dowd RN Date of /Age: 5 1960 / 62 years Complaint Investigations Officer: Chloé Lyman RDCS Gender: M Additional Staff: Height: 172.72 cm Admit Date: 07/18/2023 Weight: 105.69 kg Admission Status: Inpatient - Routine BSA / BMI: 2.18 m2 / 35.43 Department Location: [facility]/m2 Echo Lab Blood Pressure: 112 /58 mmHg Study Type: TRANSTHORACIC ECHO (TTE) COMPLETE Diagnosis/ICD: Encounter for preprocedural cardiovascular examination-Z01.810 Indication: PRE-OP CABG CPT Codes: Echo Complete w Full Doppler-[id number] Patient History: Pertinent History: CAD, Hyperlipidemia and MA. Study Detail: The following Echo studies were performed: 2D, M-Mode, Doppler and color flow. Definity used as a contrast agent for endocardial border definition. Total contrast used for this procedure was 2 mL via IV push. The patient was awake. PHYSICIAN INTERPRETATION: Left Ventricle: Left ventricular systolic function is normal, with an estimated ejection fraction of 55-60%. There are no regional wall motion abnormalities. The left ventricular cavity size is normal. The left ventricular septal wall thickness is mildly increased. There is normal left ventricular posterior wall thickness. Spectral Doppler shows an impaired relaxation pattern of left ventricular diastolic filling. Left Atrium: The left atrium is normal in size. Left atrial volume index 18.5 mL/m2. Right Ventricle: The right ventricle is normal in size. There is normal right ventricular global systolic function. Normal right ventricular chamber size and function. Right Atrium: The right atrium is normal in size. Aortic Valve: The aortic valve was not well visualized. There is mild aortic valve cusp calcification. There is no evidence of aortic valve regurgitation. The peak instantaneous gradient of the aortic valve is 7.8 mmHg. The mean gradient of the aortic valve is 4.0 mmHg. Mitral Valve: The mitral valve is normal in structure. There is trace mitral valve regurgitation. Tricuspid Valve: The tricuspid valve is structurally normal. There is trace tricuspid regurgitation. The right ventricular systolic pressure is unable to be estimated. Trivial tricuspid regurgitation. Pulmonic Valve: The pulmonic valve is structurally normal. There is no indication of pulmonic valve regurgitation. Pericardium: There is a trivial pericardial effusion. Aorta: The aortic root is normal. Systemic Veins: The inferior vena cava appears to be of normal size. There is IVC inspiratory collapse greater than 50%. CONCLUSIONS: 1. Left ventricular systolic function is normal with a 55-60% estimated ejection fraction. 2. Spectral Doppler shows an impaired relaxation pattern of left ventricular diastolic filling. 3. Normal right ventricular chamber size and function. 4. Trivial tricuspid regurgitation. 5. No previous available for comparison. QUANTITATIVE DATA SUMMARY: 2D MEASUREMENTS: Normal Ranges: Ao Root d: 2.90 cm (2.0-3.7cm) LAs: 3.70 cm (2.7-4.0cm) IVSd: 1.20 cm (0.6-1.1cm) LVPWd: 0.93 cm (0.6-1.1cm) LVIDd: 3.80 cm (3.9-5.9cm) LVIDs: 2.60 cm LV Mass Index: 58.8 g/m2 LV % FS 31.6 % LA VOLUME: Normal Ranges: LA Vol A4C: 37.5 ml (22+/-6mL/m2) LA Vol A2C: 40.3 ml LA Vol BP: 41.3 ml LA Vol Index A4C: 17.2ml/m2 LA Vol Index A2C: 18.5 ml/m2 LA Vol Index BP: 19.0 ml/m2 LA Area A4C: 15.7 cm2 LA Area A2C: 15.3 cm2 LA Major [place] A4C: 5.6 cm LA Major [place] A2C: 4.9 cm LA Volume Index: 17.9 ml/m2 RA VOLUME BY A/L METHOD: Normal Ranges: RA Vol A4C: 33.3 ml (8.3-19.5ml) RA Vol Index A4C: 15.3 ml/m2 RA Area A4C: 13.7 cm2 RA Major [place] A4C: 4.8 cm AORTA MEASUREMENTS: Normal Ranges: Asc Ao, d: 3.10 cm (2.1-3.4cm) LV SYSTOLIC FUNCTION BY 2D PLANIMETRY (MOD): Normal Ranges: EF-A4C View: 58.9 % (>=55%) EF-A2C View: 54.9 % EF-Biplane: 58.6 % LV DIASTOLIC FUNCTION: Normal Ranges: MV Peak E: 0.85 m/s (0.7-1.2 m/s) MV Peak A: 0.80 m/s (0.42-0.7 m/s) E/A Ratio: 1.07 (1.0-2.2) MV e' 0.11 m/s (>8.0) MV lateral e' 0.11 m/s MV medial e' 0.09 m/s E/e' Ratio: 7.73 (<8.0) MITRAL VALVE: Normal Ranges: MV DT: 229 msec (150-240msec) AORTIC VALVE: Normal Ranges: AoV Vmax: 1.40 m/s (<=1.7m/s) AoV Peak P.8 mmHg (<20mmHg) AoV Mean P.0 mmHg (1.7-11.5mmHg) LVOT Max Gael: 1.20 m/s (<=1.1m/s) AoV VTI: 24.60 cm (18-25cm) LVOT VTI: 24.30 cm LVOT Diameter: 2.00 cm (1.8-2.4cm) AoV Area, VTI: 3.10 cm2 (2.5-5.5cm2) AoV Area,Vmax: 2.69 cm2 (2.5-4.5cm2) AoV Dimensionless Index: 0.99 RIGHT VENTRICLE: RV Basal 3.11 cm RV Mid 2.26 cm RV Major 7.5 cm TAPSE: 25.4 mm RV s' 0.14 m/s TRICUSPID VALVE/RVSP: Normal Ranges: IVC Diam: 1.65 cm PULMONIC VALVE: Normal Ranges: PV Accel Time: 77 msec (>120ms) PV Max Gael: 1.0 m/s (0.6-0.9m/s) PV Max P.7 mmHg [id number] Dev Ding MD, [facility] Electronically signed on 07/19/2023 at 2:33:[address] chest wo IV contrast Result Date: 07/19/2023 Interpreted By: Hector Smith, STUDY: CT CHEST WO IV CONTRAST; 07/19/2023 1:48 pm INDICATION: Signs/Symptoms:pre-op CABG; please assess ascending aorta for atherosclerosis and size. COMPARISON: None. ACCESSION NUMBER(S): [id number] ORDERING CLINICIAN: MARYANNE YOU TECHNIQUE: Contiguous unenhanced axial images were obtained through the chest. Images were reformatted in axial, coronal, and sagittal planes. FINDINGS: LUNGS and AIRWAYS: Small bands of subsegmental atelectasis or scar are present in the left lower lobe anteriorly as well as the lingula. Mild dependent atelectasis present bilaterally. No focal consolidation. No pleural effusion or pneumothorax. MEDIASTINUM and LITO, LOWER NECK AND AXILLA: No mediastinal or hilar lymphadenopathy is seen. No axillary lymphadenopathy. HEART and VESSELS: There is no thoracic aortic aneurysm. Ascending thoracic aorta is uniform in caliber measuring approximately 3.1 x 3.1 cm in transverse and AP diameters. Small irregular calcifications are seen at the aortic root level. No additional calcification is seen in the ascending thoracic aorta. Small atherosclerotic calcification is seen in the distal aortic arch. Descending thoracic aorta is uniform in caliber measuring 2.4 cm in diameter. Coronary artery calcifications and/or stents are present. No pericardial effusion. Heart is not significantly enlarged. UPPER ABDOMEN: Gallbladder is not abnormally distended and contains mixed attenuation gallstone in the dependent portion toward the base. No pericholecystic inflammation is seen. No biliary dilation. CHEST WALL and OSSEOUS STRUCTURES: There is mild S-shaped scoliosis of the thoracic spine. Multilevel disc space narrowing and predominantly anterior endplate spurring/partially bridging osteophytes are most prominent in the mid-lower thoracic spine. 1. No thoracic aortic aneurysm. Ascending thoracic aorta measures 3.1 cm in diameter. 2. Irregular calcification at the aortic root level. No evidence of calcification in the ascending thoracic aorta. 3. Cholelithiasis. No pericholecystic inflammation. No biliary dilation. MACRO: None. Signed by: Hector Sarah 07/19/2023 2:09 PM Dictation workstation: [id number] Assessment/Plan Principal Problem: Acute myocardial infarction due to left coronary artery occlusion (CMS/HCC) Active Problems: Hyperlipidemia 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 Presented to OSH c/o midsternal CP that woke him from sleep. Ruled in as NSTEMI. Underwent coronary angiogram revealing diffuse TVD. Pt transferred to [facility] for consideration of surgical revascularization. -Discussed with Dr. Peck -For CABG Monday 07/24 (to allow for Plavix washout) -Medical management per Cardiology; appreciate assistance -ASA and Statin daily -Hold Plavix; will need resumed post operatively for ACS/NSTEMI -Metoprolol 25mg BID -Imdur 30mg daily -Heparin drip per protocol -cardiac diet -IS education -Activity as tolerated -pre-op testing has been completed -thank you for this consult HTN; HLD -Statin daily -Metoprolol 25mg BID -Imdur 30mg daily -optimize medical management as hemodynamics allow I spent 45 minutes in the professional and overall care of this patient. CHRISTY Evans ASSESSMENT & PLAN: NSTEMI Hx of CAD s/p PCI (2016) HTN DLD -p/w anginal CP to OSH, found to have NSTEMI, cath showed diffuse triple vessel disease, and transferred to [facility] for CABG eval -TTE here showed normal LVEF, no RWMA, no sig valvulopathy Plan: -CTS following, tentative plan for CABG on Tue as needs x5d Plavix washout (last dose 07/17), preoperative testing done -cardiology following -ASA, high intensity statin, hold Plavix for now -hep gtt -metoprolol, Imdur -tele monitoring Vte ppx already on hep gtt Attila Salgado MD SUBJECTIVE NAEON. Some indigestion feeling today. Mylanta was ordered. Otherwise feels good, no complaints, no cp, dyspnea. OBJECTIVE: Last Recorded Vitals: Vitals: 07/20/23 1852 07/21/23 0003 07/21/23 0500 07/21/23 0727 BP: 99/58 117/65 129/74 127/66 BP Location: Left leg Patient Position: Sitting Lying Pulse: 84 82 75 79 Resp: 20 19 16 Temp: 36.8 C (98.2 F) 36.7 C (98.1 F) 36.3 C (97.3 F) 36.8 C (98.2 F) TempSrc: Temporal SpO2: 94% 96% 96% 91% Weight: Height: Last I/O: I/O last 3 completed shifts: In: 1535 (14.5 mL/kg) [P.O.:1535] Out: - (0 mL/kg) Weight: 105.8 kg Physical Exam: GEN: healthy appearing, appears stated age, NAD CV: RRR, no m/r/g, no LE edema LUNGS: CTAB, no w/r/c ABD: soft, NT, ND, NBS SKIN: no rashes MSK; no gross deformities, normal joints NEURO: A+Ox3, no FND PSYCH: appropriate mood, affect Inpatient Medications: aspirin, 81 mg, oral, Daily atorvastatin, 40 mg, oral, Nightly isosorbide mononitrate ER, 30 mg, oral, Daily metoprolol tartrate, 25 mg, oral, BID pantoprazole, 40 mg, oral, Daily PRN Medications PRN medications: acetaminophen OR acetaminophen OR acetaminophen, alum-mag hydroxide-simeth, heparin, melatonin, nitroglycerin, ondansetron OR ondansetron, polyethylene glycol Continuous Medications: heparin, 0-4,000 Units/hr, Last Rate: 1,200 Units/hr (07/20/23 2250) LABS AND IMAGING: Labs: Results for orders placed or performed during the hospital encounter of 07/19/23 (from the past 24 hour(s)) Heparin Assay, UFH Result Value Ref Range Heparin Unfractionated 0.5 See Comment Below for Therapeutic Ranges IU/mL SST TOP Result Value Ref Range Extra Tube Hold for add-ons. Heparin Assay, UFH Result Value Ref Range Heparin Unfractionated 0.5 See Comment Below for Therapeutic Ranges IU/mL SST TOP Result Value Ref Range Extra Tube Hold for add-ons. Lavender Top Result Value Ref Range Extra Tube Hold for add-ons. Magnesium Result Value Ref Range Magnesium 2.01 1.60 - 2.40 mg/dL Basic metabolic panel Result Value Ref Range Glucose 99 74 - 99 mg/dL Sodium 137 136 - 145 mmol/L Potassium 4.0 3.5 - 5.3 mmol/L Chloride 106 98 - 107 mmol/L Bicarbonate 22 21 - 32 mmol/L Anion Gap 13 10 - 20 mmol/L Urea Nitrogen 19 6 - 23 mg/dL Creatinine 1.07 0.50 - 1.30 mg/dL eGFR 79 >60 mL/min/1.73m*2 Calcium 9.2 8.6 - 10.3 mg/dL Heparin Assay Result Value Ref Range Heparin Unfractionated 0.3 See Comment Below for Therapeutic Ranges IU/mL ECG 12 Lead Result Value Ref Range Ventricular Rate 76 BPM Atrial Rate 76 BPM OH Interval 142 ms QRS Duration 86 ms QT Interval 376 ms QTC Calculation(Bazett) 423 ms P [place] 30 degrees R [place] 24 degrees T [place] -39 degrees QRS Count 12 beats Q Onset 220 ms P Onset 149 ms P Offset 204 ms T Offset 408 ms QTC Fredericia 406 ms Imaging: ECG 12 Lead Normal sinus rhythm Inferior infarct (cited on or before 19-JUL-2023) T wave abnormality, consider lateral ischemia Abnormal ECG When compared with ECG of 20-JUL-2023 06:47, No significant change was found [facility] Progress Note Rounding ANTONIO/Fire Hose Curer: Eduardo Ferro, JESSICA-IRENA, Dr. Heraclio Benitez Primary Fire Hose Curer: Dr Horton Date: 07/21/2023 Patient: Robert Smiley Date of : 1960 Admit Date: 07/19/2023 SUBJECTIVE: 07/21/23 Patient is awake and alert and oriented x 3. States he had a little indigestion this morning spoke to him at length he denies any chest pain or shortness of breath Telemetry is normal sinus rhythm with occasional PVC EKG is normal sinus rhythm has ST depression in inferior 07/20/23 Patient is resting quietly spoke to him at length he discussed at length wi [facility] Work Phone: 07-31-2023 Hospital course Narrative Discharge Diagnosis Acute myocardial infarction due to left coronary artery occlusion (CMS/HCC) Issues Requiring Follow-Up Test Results Pending At Discharge Pending Labs No current pending labs. Hospital Course Robert Smiley is a 62 y.o. male with PMHx of HTN, HLD, CAD s/p PCI (2017), and life time non-smoker who presented to OSH Tuesday morning c/o midsternal chest pain that radiated down his arms and woke him from sleep. He was transported via EMS; given SL nitroglycerine x2 en route with resolution of symptoms. Per ED note, EKG showed NSR with t-wave inversion in inferior leads. Troponin peaked at 4598. Pt was given full strength Aspirin, started on Heparin drip, and admitted to telemetry. The following day he underwent coronary angiogram revealing diffuse triple vessel disease and was transferred to [facility] for consideration of CABG. He remained inpatient while awaiting surgical revascularization. Pt remained hemodynamically stable and there were no acute events during pre-operative period. On July 24 patient underwent CABG x4 with ESTES-LAD, SVG-PDA-OM, SVG-Diag; Endoscopic vein harvest; intraoperative MARCUS. CPB 148 minutes; XC 135 minutes; EBL 250mL. Pt tolerated the procedure well and easily weaned from cardiopulmonary bypass. He arrived to SICU intubated and sedated on NEPI drip. He was successfully weaned from ventilator and extubated to nasal canula a few hours later. The post operative course was complicated by atrial fibrillation. On POD#2 pt developed AFIB RVR. Amiodarone bolus given followed by initiation of continuous infusion. Transitioned to oral amiodarone the following day (400mg every day x5D per Cardiology then decrease to 200mg Daily). He continued to have intermittent runs AFIB that would usually convert with IVP Lopressor. However, POD#4 pt had run of AFIB RVR in afternoon that did not respond to IVP Lopressor. Repeat Amiodarone bolus given with catholic of sinus rhythm. Event discussed with Dr. Benitez who recommended increasing Metoprolol to TID. Pt had no recurrence of AFIB on daily PO Amiodarone and TID Metoprolol. He was discharged on this regimen with instruction to decrease Amiodarone to 200mg daily on August 01. The remainder of the post operative period was uneventful. [place], arterial line, central line, and chest tubes were removed sequentially. Epicardial wires were clipped at the skin by ALIGNMENT MECHANIC on 07/27 (resistance met with attempt to pull) prior to initiating oral anticoagulation for paroxysmal post op atrial fibrillation. Pain regimen was adjusted for appropriate pain control. Diet advanced as tolerated. Bowel regimen implemented POD#1 and eventually held due to frequent loose stools. Pt was diuresed for volume overload. He worked with therapy and was determined to be appropriate for discharge to home with home health care. At time of discharge, patient is afebrile and HDS. Maintaining SR on regimen discussed above. Normotensive. Maintaining adequate SPO2 on RA. Pain well controlled. Sternotomy and EVH sites well approximated without concern for infection. Sternum stable. Tolerating diet without nausea and moving bowels daily (frequency of loose stools slowing). Still 3kg above pre-op weight with fine bibasilar crackles and 1+ b/l LE edema; Lasix 40mg PO Daily x5D continued at discharge. Prior to discharge, patient advised of restrictions to activity, lifting, bathing, and driving. Additionally, education regarding discharge medications, incision care, and signs/symptoms of infection was also provided. Pt verbalized understanding to all instruction. He was discharged to home in hemodynamically stable condition. Office was notified of discharge and need for follow up. They will contact patient beginning of week with instruction including date and time. Pertinent Physical Exam At Time of Discharge Physical Exam Vitals and nursing note reviewed. Constitutional: General: He is not in acute distress. Appearance: Normal appearance. He is obese. HENT: Head: Normocephalic and atraumatic. Right Ear: External ear normal. Left Ear: External ear normal. Nose: Nose normal. Mouth/Throat: Mouth: Mucous membranes are moist. Pharynx: Oropharynx is clear. Eyes: Conjunctiva/sclera: Conjunctivae normal. Pupils: Pupils are equal, round, and reactive to light. Cardiovascular: Rate and Rhythm: Normal rate and regular rhythm. Pulses: Normal pulses. Heart sounds: Normal heart sounds. Comments: Epicardial wires clipped at the skin by ALIGNMENT MECHANIC 07/27 Pulmonary: Effort: Pulmonary effort is normal. Comments: Slightly diminished at bases with fine bibasilar crackles. Sternotomy is well approximated without erythema or drainage. Sternum stable EVH incisions well approximated without concern for infection. Sutures intact to chest tube sites Abdominal: Comments: Protuberant but soft. Non-tender. Normoactive BS. Loose bowel movements have slowed. Genitourinary: Comments: Voiding freely Musculoskeletal: Cervical back: Normal range of motion and neck supple. Right lower leg: Edema present. Left lower leg: Edema present. Comments: Generalized post op weakness but ambulating independently with steady gait. 1+ B/L LE edema. Skin: General: Skin is warm and dry. Neurological: General: No focal deficit present. Mental Status: He is alert and oriented to person, place, and time. Psychiatric: Mood and Affect: Mood normal. Behavior: Behavior normal. Home Medications Medication List START taking these medications amiodarone 200 mg tablet; Commonly known as: Pacerone; Take 1 tablet (200 mg) by mouth once daily. Take 2 tablets by mouth once on July 31. On August 01 decrease to 1 table by mouth daily. Do not start before August 01, 2023.; Start taking on: August 01, 2023 apixaban 5 mg tablet; Commonly known as: Eliquis; Take 1 tablet (5 mg) by mouth every 12 hours. aspirin 81 mg chewable tablet; Chew 1 tablet (81 mg) once daily. Do not start before August 01, 2023.; Start taking on: August 01, 2023 atorvastatin 40 mg tablet; Commonly known as: Lipitor; Take 1 tablet (40 mg) by mouth once daily at bedtime. furosemide 40 mg tablet; Commonly known as: Lasix; Take 1 tablet (40 mg) by mouth once daily in the morning for 5 doses. Do not start before August 01, 2023.; Start taking on: August 01, 2023 iron polysaccharides 150 mg iron capsule; Commonly known as: Nu-Iron,Niferex; Take 1 capsule (150 mg) by mouth once daily. Do not start before August 01, 2023.; Start taking on: August 01, 2023 magnesium oxide 400 mg (241.3 mg magnesium) tablet; Commonly known as: Mag-Ox; Take 1 tablet (400 mg) by mouth once daily. Do not start before August 01, 2023.; Start taking on: August 01, 2023 metoprolol tartrate 25 mg tablet; Commonly known as: Lopressor; Take 1 tablet (25 mg) by mouth 3 times a day. oxyCODONE 5 mg immediate release tablet; Commonly known as: Roxicodone; Take 1 tablet (5 mg) by mouth every 6 hours if needed for moderate pain (4 - 6). ICD10: I25.1, G89.18 potassium chloride CR 20 mEq ER tablet; Commonly known as: Klor-Con M20; Take 1 tablet (20 mEq) by mouth once daily for 5 doses. Do not crush or chew. Do not start before August 01, 2023.; Start taking on: August 01, 2023 CONTINUE taking these medications meloxicam 7.5 mg tablet; Commonly known as: Mobic STOP taking these medications clopidogrel 75 mg tablet; Commonly known as: Plavix Outpatient Follow-Up No future appointments. CHRISTY Garcia documented in this encounter [facility] Work Phone: 07-29-2023 Nurse Note Pt to floor from SICU. Soren Mcgraw CNP made aware of change in patient's rhythm to atrial fib 130-150's. Stat EKG done and new orders received. Referral noted for Assembler Unit. Patient's HbA1C is 4.9. Patient is not pre-diabetic or diabetic. Radha Coello CNP aware that arterial line has dampened waveform and unable to obtain accurate readings, unable to withdraw blood. Arterial line removed, patient tolerated well Pt successfully extubated at this time by RT per orders. Pt tolerated well. Placed on nasal cannula Pt changed to CPAP mode on vent at this time per RT Patient taken to surgery in stable condition and with all belongings. Family have pt's hearing aids. Report given to gritting machine operatorQUIRINO Avila. Family at bedside and given patients belongings. documented in this encounter [facility] Work Phone: 07-29-2023 Consult note Associated Order (s): IP CONSULT TO NUTRITION SERVICES Nutrition Note: Nutrition Assessment Reason for Assessment: Admission nursing screening Patient is a 62 y.o. male presenting with acute MA. Nutrition History: Energy Intake: Good > 75 % Food and Nutrient History: RDN consult for LOS. Met with pt who reports good appetite, >75% intake noted for most documented meals. Pt denies recent change in appetite. Pt denies recent wt changes, states UBW 225 lbs, current wt slightly abouse UBW but edema is present. Pt denies N/V/C/D. Pt denies chewing or swallowing difficulty. No nutrition concerns at this time. Please re-consult nutrition serviced as needed. Time Spent/Follow-up Reminder: Time Spent (min): 15 minutes Last Date of Nutrition Visit: 07/29/23 Nutrition Follow-Up Needed?: 7-10 days Follow up Comment: no nutrition concerns Associated Order(s): PHARMACY TO DOSE VANCO Vancomycin Dosing by Pharmacy- INITIAL Robert Smiley is a 62 y.o. year old male who Pharmacy has been consulted for vancomycin dosing for other surgical prophylaxis . Based on the patient's indication and renal status this patient will be dosed based on a goal AUC of 400-600. Renal function is currently stable. Visit Vitals BP 132/62 Pulse 69 Temp 36.6 C (97.9 F) Resp 14 Lab Results Component Value Date CREATININE 1.16 07/25/2023 CREATININE 1.20 07/24/2023 CREATININE 1.07 07/21/2023 CREATININE 1.15 07/20/2023 Patient weight is No results found for: PTWEIGHT No results found for: CULTURE I/O last 3 completed shifts: In: 1262 (12.3 mL/kg) [P.O.:240; I.V.:1022 (9.9 mL/kg)] Out: - (0 mL/kg) Weight: 103 kg @IOTHISSHIFT@ Lab Results Component Value Date PATIENTTEMP 07/25/2023 Comment: NOTE: Patient Results are Not Corrected for Temperature PATIENTTEMP 07/25/2023 Comment: NOTE: Patient Results are Not Corrected for Temperature PATIENTTEMP 07/25/2023 Comment: NOTE: Patient Results are Not Corrected for Temperature Assessment/Plan Patient has already been given a loading dose of 1500 mg.(Pre op dose) Will initiate vancomycin maintenance, 1500 mg every 12 hours x 48 hours post op only This dosing regimen is predicted by [employer] to result in the following pharmacokinetic parameters: Traditional dosing x 48 hours post op only (surgical prophylaxis) Follow-up level will be ordered on n/a at n/a unless clinically indicated sooner. Will continue to monitor renal function daily while on vancomycin and order serum creatinine at least every 48 hours if not already ordered. Follow for continued vancomycin needs, clinical response, and signs/symptoms of toxicity. Courtney Newman, PharmD Associated Order(s): Inpatient consult to Cardiothoracic Surgery -Inpatient consult to Cardiothoracic Surgery Consult performed by: Maryanne You APRN-MANAGER CONTRACT Consult ordered by: Attila Salgado MD Reason for consult: Transfer from OSH for CABG eval Reason For Consult Transfer from OSH for CABG eval History Of Present Illness Robert Smiley is a 62 y.o. male with PMHx of HTN, HLD, CAD s/p PCI (2016), and life time non-smoker who presented to OSH Tuesday morning c/o midsternal chest pain that radiated down his arms and woke him from sleep. He was transported via EMS; given SL nitroglycerine x2 en route with resolution of symptoms. Per ED note, EKG showed NSR with t-wave inversion in inferior leads. Troponin peaked at 4598. Pt was given full strength Aspirin, started on Heparin drip, and admitted to telemetry. The following day he underwent coronary angiogram revealing diffuse triple vessel disease and was transferred to [facility] for consideration of CABG. 07/18: Pt seen and evaluated with Dr. Peck. He is afebrile and HDS. Maintaining SR. Adequate SpO2 on RA. Denies angina since admission to OSH. He explains chest pain came on suddenly early Tuesday morning waking him from sleep. Noted radiation down both arms as well as SOB and nausea. Denies palpitations, dizziness, israel/near syncope, peripheral edema, and diaphoresis. Echo obtained on arrival to [facility] revealed normal LV function with EF 55-60%, no RWMA's, and no hemodynamically significant valvular abnormalities. Pt has been maintained on Plavix since PCI in 2016 and reports last dose was yesterday, 07/17. Findings reviewed with Dr. Peck. We will have to allow 5 days for Plavix washout; tentatively looking at Monday 07/24 for surgical revascularization. Thank you for this consult. Past Medical History He has a past medical history of Asperger's syndrome, Coronary artery disease, Gout, Hyperlipidemia, and Myocardial infarct ([facility]/HCC). Surgical History He has a past surgical history that includes Appendectomy and Coronary stent placement. Social History He reports that he has never smoked. He has never used smokeless tobacco. He reports that he does not use drugs. No history on file for alcohol use. Family History No family history on file. Allergies Patient has no known allergies. Review of Systems Constitutional: Negative. HENT: Negative. Respiratory: Positive for shortness of breath. Resolved Cardiovascular: Positive for chest pain. Nocturnal CP prior to arrival. Resolved and has not recurred. Gastrointestinal: Positive for nausea. Resolved Musculoskeletal: Negative. Skin: Negative. All other systems reviewed and are negative. Physical Exam Constitutional: General: He is not in acute distress. Appearance: Normal appearance. He is obese. HENT: Head: Normocephalic and atraumatic. Right Ear: External ear normal. Left Ear: External ear normal. Ears: Comments: Hard of hearing; uses hearing aids Nose: Nose normal. Mouth/Throat: Mouth: Mucous membranes are moist. Pharynx: Oropharynx is clear. Eyes: Extraocular Movements: Extraocular movements intact. Pupils: Pupils are equal, round, and reactive to light. Neck: Comments: No JVD Cardiovascular: Rate and Rhythm: Normal rate and regular rhythm. Pulses: Normal pulses. Heart sounds: Normal heart sounds. Pulmonary: Effort: Pulmonary effort is normal. Breath sounds: Normal breath sounds. Abdominal: Comments: Protuberant but soft. Normoactive BS. Last BM 3/ Musculoskeletal: General: Normal range of motion. Cervical back: Normal range of motion and neck supple. Skin: General: Skin is warm and dry. Neurological: General: No focal deficit present. Mental Status: He is alert and oriented to person, place, and time. Psychiatric: Mood and Affect: Mood normal. Behavior: Behavior normal. Last Recorded Vitals Blood pressure 112/58, pulse 68, temperature 36.5 C (97.7 F), temperature source Temporal, resp. rate 18, height 1.727 m (5' 8 ), weight 106 kg (233 lb 3.2 oz), SpO2 94 %. Relevant Results Scheduled medications aspirin, 81 mg, oral, Daily atorvastatin, 40 mg, oral, Nightly [Held by provider] clopidogrel, 75 mg, oral, Daily isosorbide mononitrate ER, 30 mg, oral, Daily metoprolol tartrate, 25 mg, oral, BID pantoprazole, 40 mg, oral, Daily Or pantoprazole, 40 mg, intravenous, Daily Continuous medications heparin, 0-4,000 Units/hr, Last Rate: 1,400 Units/hr (07/19/23 1057) PRN medications PRN medications: acetaminophen OR acetaminophen OR acetaminophen, heparin, melatonin, nitroglycerin, ondansetron OR ondansetron, polyethylene glycol Results for orders placed or performed during the hospital encounter of 07/19/23 (from the past 24 hour(s)) SST TOP Result Value Ref Range Extra Tube Hold for add-ons. CBC Result Value Ref Range WBC 7.5 4.4 - 11.3 x10*3/uL nRBC 0.0 0.0 - 0.0 /100 WBCs RBC 5.00 4.50 - 5.90 x10*6/uL Hemoglobin 15.1 13.5 - 17.5 g/dL Hematocrit 44.3 41.0 - 52.0 % MCV 89 80 - 100 fL MCH 30.2 26.0 - 34.0 pg MCHC 34.1 32.0 - 36.0 g/dL RDW 12.8 11.5 - 14.5 % Platelets 248 150 - 450 x10*3/uL Comprehensive Metabolic Panel Result Value Ref Range Glucose 90 74 - 99 mg/dL Sodium 137 136 - 145 mmol/L Potassium 4.0 3.5 - 5.3 mmol/L Chloride 104 98 - 107 mmol/L Bicarbonate 26 21 - 32 mmol/L Anion Gap 11 10 - 20 mmol/L Urea Nitrogen 16 6 - 23 mg/dL Creatinine 1.06 0.50 - 1.30 mg/dL eGFR 80 >60 mL/min/1.73m*2 Calcium 8.8 8.6 - 10.3 mg/dL Albumin 3.6 3.4 - 5.0 g/dL Alkaline Phosphatase 70 33 - 136 U/L Total Protein 6.5 6.4 - 8.2 g/dL AST 21 9 - 39 U/L Bilirubin, Total 0.6 0.0 - 1.2 mg/dL ALT 13 10 - 52 U/L Troponin I, High Sensitivity Result Value Ref Range Troponin I, High Sensitivity 2,181 (HH) 0 - 20 ng/L Magnesium Result Value Ref Range Magnesium 1.98 1.60 - 2.40 mg/dL Protime-INR Result Value Ref Range Protime 12.2 9.8 - 12.8 seconds INR 1.1 0.9 - 1.1 APTT Result Value Ref Range aPTT 61 (H) 27 - 38 seconds Heparin Assay, UFH Result Value Ref Range Heparin Unfractionated 0.3 See Comment Below for Therapeutic Ranges IU/mL ECG 12 lead Result Value Ref Range Ventricular Rate 66 BPM Atrial Rate 66 BPM OH Interval 132 ms QRS Duration 80 ms QT Interval 376 ms QTC Calculation(Bazett) 394 ms P [place] 4 degrees R [place] 18 degrees T [place] -24 degrees QRS Count 11 beats Q Onset 214 ms P Onset 148 ms P Offset 191 ms T Offset 402 ms QTC Fredericia 388 ms Heparin Assay, UFH Result Value Ref Range Heparin Unfractionated 0.2 See Comment Below for Therapeutic Ranges IU/mL Transthoracic Echo (TTE) Complete Result Value Ref Range AV mn grad 4.0 mmHg AV pk gael 1.40 m/s LV biplane EF 59 % LVOT diam 2.00 cm MV E/A ratio 1.07 Tricuspid annular plane systolic excursion 2.5 cm MV avg E/e' ratio 7.73 LA vol index A/L 19.0 ml/m2 RV free wall pk S' 14.30 cm/s LVIDd 3.80 cm Aortic Valve Area by Continuity of Peak Velocity 2.69 cm2 AV pk grad 7.8 mmHg Aortic Valve Area by Continuity of VTI 3.10 cm2 LV A4C EF 58.9 Heparin Assay Result Value Ref Range Heparin Unfractionated 0.5 See Comment Below for Therapeutic Ranges IU/mL SST TOP Result Value Ref Range Extra Tube Hold for add-ons. PST Top Result Value Ref Range Extra Tube Hold for add-ons. Carotid duplex bilateral Result Date: 07/19/2023 Interpreted By: Hector Smith, STUDY: [facility] CAROTID ARTERY DUPLEX BILATERAL; 07/19/2023 2:38 pm INDICATION: Signs/Symptoms:pre-op CABG; r/o carotid stenosis. COMPARISON: None. ACCESSION NUMBER(S): [id number] ORDERING CLINICIAN: MARYANNE YOU TECHNIQUE: Vascular ultrasound of the extracranial carotid system was performed bilaterally. Griffith scale, color Doppler and spectral Doppler waveform analysis was performed. FINDINGS: RIGHT: On the right There is no evidence of atheromatous plaques in the common carotid arteries, visualized portions of the internal carotid arteries, and the proximal external carotid arteries. Doppler studies demonstrate normal flow pattern without evidence of turbulent flow.. The peak systolic velocities are as follows: RIGHT SIDE PEAK SYSTOLIC VELOCITY TABLE: CCA 116 cm/sec. ICA 58 cm/sec. ECA 105 cm/sec. The ratio of the peak systolic velocity of the right ICA/CCA is 0.5. RIGHT VERTEBRAL ARTERY: The right vertebral artery demonstrates proximal normal anterograde flow LEFT: On the left There is no evidence of atheromatous plaques in the common carotid arteries, visualized portions of the internal carotid arteries, and the proximal external carotid arteries. Doppler studies demonstrate normal flow pattern without evidence of turbulent flow.. The peak systolic velocities are as follows: LEFT SIDE PEAK SYSTOLIC VELOCITY TABLE: CCA 99 cm/sec. ICA 54 cm/sec. ECA 98 cm/sec. The ratio of the peak systolic velocity of the left ICA/CCA is 0.6. LEFT VERTEBRAL ARTERY: The left vertebral artery demonstrates proximal normal anterograde flow Normal flow pattern without evidence of hemodynamically relevant stenosis or atheromatous plaques in the visualized portions of the carotid circulation as described above. MACRO: None Signed by: Hector Smith 07/19/2023 3:43 PM Dictation workstation: [id number] XR chest 2 views Result Date: 07/19/2023 Interpreted By: Hector Smith, STUDY: XR CHEST 2 VIEWS; 07/19/2023 2:08 pm INDICATION: Signs/Symptoms:pre-op CABG. COMPARISON: None. ACCESSION NUMBER(S): [id number] ORDERING CLINICIAN: MARYANNE YOU FINDINGS: CARDIOMEDIASTINAL SILHOUETTE: Cardiomediastinal silhouette is normal in size and configuration. LUNGS: Mild left basilar atelectasis is present. No focal consolidation. No pleural effusion or pneumothorax. ABDOMEN: No remarkable upper abdominal findings. BONES: Multilevel predominantly anterior endplate spurring/partially bridging osteophytes are present in the thoracic spine. 1. Mild left basilar atelectasis. No focal consolidation. MACRO: None. Signed by: Hector Smith 07/19/2023 3:41 PM Dictation workstation: [id number] Transthoracic Echo (TTE) Complete Result Date: 07/19/2023 [place] [id number] TRANSTHORACIC ECHOCARDIOGRAM REPORT Patient Name: ROBERT SMILEY Reading Physician: [id number] Dev Ding MD, [facility] Study Date: 07/19/2023 Ordering Provider: [id number] EDUARDO FERRO MRN/PID: [id number] Fellow: Nurse: Mendoza Dowd RN Date of /Age: 5 1960 / 62 years Complaint Investigations Officer: Chloé Lyman [facility] Gender: M Additional Staff: Height: 172.72 cm Admit Date: 07/18/2023 Weight: 105.69 kg Admission Status: Inpatient - Routine BSA / BMI: 2.18 m2 / 35.43 Department Location: [facility]/m2 Echo Lab Blood Pressure: 112 /58 mmHg Study Type: TRANSTHORACIC ECHO (TTE) COMPLETE Diagnosis/ICD: Encounter for preprocedural cardiovascular examination-Z01.810 Indication: PRE-OP CABG CPT Codes: Echo Complete w Full Doppler-85450 Patient History: Pertinent History: CAD, Hyperlipidemia and MA. Study Detail: The following Echo studies were performed: 2D, M-Mode, Doppler and color flow. Definity used as a contrast agent for endocardial border definition. Total contrast used for this procedure was 2 mL via IV push. The patient was awake. PHYSICIAN INTERPRETATION: Left Ventricle: Left ventricular systolic function is normal, with an estimated ejection fraction of 55-60%. There are no regional wall motion abnormalities. The left ventricular cavity size is normal. The left ventricular septal wall thickness is mildly increased. There is normal left ventricular posterior wall thickness. Spectral Doppler shows an impaired relaxation pattern of left ventricular diastolic filling. Left Atrium: The left atrium is normal in size. Left atrial volume index 18.5 mL/m2. Right Ventricle: The right ventricle is normal in size. There is normal right ventricular global systolic function. Normal right ventricular chamber size and function. Right Atrium: The right atrium is normal in size. Aortic Valve: The aortic valve was not well visualized. There is mild aortic valve cusp calcification. There is no evidence of aortic valve regurgitation. The peak instantaneous gradient of the aortic valve is 7.8 mmHg. The mean gradient of the aortic valve is 4.0 mmHg. Mitral Valve: The mitral valve is normal in structure. There is trace mitral valve regurgitation. Tricuspid Valve: The tricuspid valve is structurally normal. There is trace tricuspid regurgitation. The right ventricular systolic pressure is unable to be estimated. Trivial tricuspid regurgitation. Pulmonic Valve: The pulmonic valve is structurally normal. There is no indication of pulmonic valve regurgitation. Pericardium: There is a trivial pericardial effusion. Aorta: The aortic root is normal. Systemic Veins: The inferior vena cava appears to be of normal size. There is IVC inspiratory collapse greater than 50%. CONCLUSIONS: 1. Left ventricular systolic function is normal with a 55-60% estimated ejection fraction. 2. Spectral Doppler shows an impaired relaxation pattern of left ventricular diastolic filling. 3. Normal right ventricular chamber size and function. 4. Trivial tricuspid regurgitation. 5. No previous available for comparison. QUANTITATIVE DATA SUMMARY: 2D MEASUREMENTS: Normal Ranges: Ao Root d: 2.90 cm (2.0-3.7cm) LAs: 3.70 cm (2.7-4.0cm) IVSd: 1.20 cm (0.6-1.1cm) LVPWd: 0.93 cm (0.6-1.1cm) LVIDd: 3.80 cm (3.9-5.9cm) LVIDs: 2.60 cm LV Mass Index: 58.8 g/m2 LV % FS 31.6 % LA VOLUME: Normal Ranges: LA Vol A4C: 37.5 ml (22+/-6mL/m2) LA Vol A2C: 40.3 ml LA Vol BP: 41.3 ml LA Vol Index A4C: 17.2ml/m2 LA Vol Index A2C: 18.5 ml/m2 LA Vol Index BP: 19.0 ml/m2 LA Area A4C: 15.7 cm2 LA Area A2C: 15.3 cm2 LA Major [place] A4C: 5.6 cm LA Major [place] A2C: 4.9 cm LA Volume Index: 17.9 ml/m2 RA VOLUME BY A/L METHOD: Normal Ranges: RA Vol A4C: 33.3 ml (8.3-19.5ml) RA Vol Index A4C: 15.3 ml/m2 RA Area A4C: 13.7 cm2 RA Major [place] A4C: 4.8 cm AORTA MEASUREMENTS: Normal Ranges: Asc Ao, d: 3.10 cm (2.1-3.4cm) LV SYSTOLIC FUNCTION BY 2D PLANIMETRY (MOD): Normal Ranges: EF-A4C View: 58.9 % (>=55%) EF-A2C View: 54.9 % EF-Biplane: 58.6 % LV DIASTOLIC FUNCTION: Normal Ranges: MV Peak E: 0.85 m/s (0.7-1.2 m/s) MV Peak A: 0.80 m/s (0.42-0.7 m/s) E/A Ratio: 1.07 (1.0-2.2) MV e' 0.11 m/s (>8.0) MV lateral e' 0.11 m/s MV medial e' 0.09 m/s E/e' Ratio: 7.73 (<8.0) MITRAL VALVE: Normal Ranges: MV DT: 229 msec (150-240msec) AORTIC VALVE: Normal Ranges: AoV Vmax: 1.40 m/s (<=1.7m/s) AoV Peak P.8 mmHg (<20mmHg) AoV Mean P.0 mmHg (1.7-11.5mmHg) LVOT Max Gael: 1.20 m/s (<=1.1m/s) AoV VTI: 24.60 cm (18-25cm) LVOT VTI: 24.30 cm LVOT Diameter: 2.00 cm (1.8-2.4cm) AoV Area, VTI: 3.10 cm2 (2.5-5.5cm2) AoV Area,Vmax: 2.69 cm2 (2.5-4.5cm2) AoV Dimensionless Index: 0.99 RIGHT VENTRICLE: RV Basal 3.11 cm RV Mid 2.26 cm RV Major 7.5 cm TAPSE: 25.4 mm RV s' 0.14 m/s TRICUSPID VALVE/RVSP: Normal Ranges: IVC Diam: 1.65 cm PULMONIC VALVE: Normal Ranges: PV Accel Time: 77 msec (>120ms) PV Max Gael: 1.0 m/s (0.6-0.9m/s) PV Max P.7 mmHg [id number] Dev Ding MD, FACC Electronically signed on 07/19/2023 at 2:33:[address] chest wo IV contrast Result Date: 07/19/2023 Interpreted By: Hector Smith, STUDY: CT CHEST WO IV CONTRAST; 07/19/2023 1:48 pm INDICATION: Signs/Symptoms:pre-op CABG; please assess ascending aorta for atherosclerosis and size. COMPARISON: None. ACCESSION NUMBER(S): [id number] ORDERING CLINICIAN: MARYANNE YOU TECHNIQUE: Contiguous unenhanced axial images were obtained through the chest. Images were reformatted in axial, coronal, and sagittal planes. FINDINGS: LUNGS and AIRWAYS: Small bands of subsegmental atelectasis or scar are present in the left lower lobe anteriorly as well as the lingula. Mild dependent atelectasis present bilaterally. No focal consolidation. No pleural effusion or pneumothorax. MEDIASTINUM and LITO, LOWER NECK AND AXILLA: No mediastinal or hilar lymphadenopathy is seen. No axillary lymphadenopathy. HEART and VESSELS: There is no thoracic aortic aneurysm. Ascending thoracic aorta is uniform in caliber measuring approximately 3.1 x 3.1 cm in transverse and AP diameters. Small irregular calcifications are seen at the aortic root level. No additional calcification is seen in the ascending thoracic aorta. Small atherosclerotic calcification is seen in the distal aortic arch. Descending thoracic aorta is uniform in caliber measuring 2.4 cm in diameter. Coronary artery calcifications and/or stents are present. No pericardial effusion. Heart is not significantly enlarged. UPPER ABDOMEN: Gallbladder is not abnormally distended and contains mixed attenuation gallstone in the dependent portion toward the base. No pericholecystic inflammation is seen. No biliary dilation. CHEST WALL and OSSEOUS STRUCTURES: There is mild S-shaped scoliosis of the thoracic spine. Multilevel disc space narrowing and predominantly anterior endplate spurring/partially bridging osteophytes are most prominent in the mid-lower thoracic spine. 1. No thoracic aortic aneurysm. Ascending thoracic aorta measures 3.1 cm in diameter. 2. Irregular calcification at the aortic root level. No evidence of calcification in the ascending thoracic aorta. 3. Cholelithiasis. No pericholecystic inflammation. No biliary dilation. MACRO: None. Signed by: Hector Smith 07/19/2023 2:09 PM Dictation workstation: [id number] ECG 12 lead Result Date: 07/19/2023 Normal sinus rhythm Possible Inferior infarct , age undetermined Abnormal ECG No previous ECGs available Confirmed by Courtney Shrestha ([id number]) on 07/19/2023 7:31:32 AM CARDIAC CATHETERIZATION PROCEDURE - ONBASE SCAN Result Date: 07/18/2023 Ordered by an unspecified provider. Assessment/Plan CAD; NSTEMI Hx of CAD s/p PCI x2 (2017) maintained on Plavix since (last dose 07/18). Presented to OSH c/o midsternal CP that woke him from sleep. Ruled in as NSTEMI. Underwent coronary angiogram revealing diffuse TVD. Pt transferred to [facility] for consideration of surgical revascularization. -Discussed with Dr. Peck at bedside -awaiting cath images from OSH -tentatively planning CABG Monday 07/24 (to allow for Plavix washout) -Medical management per Cardiology; appreciate assistance -ASA and Statin daily -Hold Plavix; will need resumed post operatively for ACS/NSTEMI -Metoprolol 25mg BID -Imdur 30mg daily -Heparin drip per protocol -cardiac diet -IS education -Activity as tolerated -pre-op testing has been completed -thank you for this consult HTN; HLD -no on medications at home but has not seen Fire Hose Curer in many years -Statin daily -Metoprolol 25mg BID -Imdur 30mg daily -optimize medical management as hemodynamics allow I spent 60 minutes in the professional and overall care of this patient. Associated Order(s): Inpatient consult to Cardiology Inpatient consult to Cardiology Consult performed by: CHRISTY Saenz Consult ordered by: Anjum Nieto MD Reason for consult: CAD Cardiology Consult Note Date: 07/19/2023 Patient name: Robert Smiley Date of admission: 07/19/2023 2:30 AM Date of : 1960 Time of Consult: 8:30 AM Consulting Fire Hose Curer: Dr. Heraclio Ferro APRN, CNP Primary Fire Hose Curer: Dr Horton Referring Provider: Dr Salgado Admission Diagnosis: Acute myocardial infarction due to left coronary artery occlusion ([facility]) History of Present Illness: Robert Smiley is a 62 y.o. male patient who is being at the request of Dr. Salgado for inpatient consultation of angina. He was admitted on 07/19/2023. Previous [facility] and [facility] records have been reviewed in detail. Patient with a history of CAD, hypertension dyslipidemia was transferred from [facility] for CABG evaluation. On Tuesday the patient developed chest pain that radiated down his left arm along with chest pain he went to [facility] they transferred him to [facility] for heart catheterization LAD 95% Circumflex 95% RCA 95 to 99% Patient states they put him on a heparin drip send and will be here for CABG consult. He states he does not have any chest pain, fever, chills, nausea, vomiting, PND, orthopnea, claudications at this present time. He states that he has had a couple stents in the past. EKG is normal sinus rhythm has ST depression in inferior Allergies: No Known Allergies Past Medical History: Past Medical History: Diagnosis Date Asperger's syndrome Coronary artery disease Gout Hyperlipidemia Myocardial infarct (CMS/HCC) Past Surgical History: Past Surgical History: Procedure Laterality Date APPENDECTOMY CORONARY STENT PLACEMENT Family History: No family history on file. Social History: Social History Tobacco Use Smoking status: Never Smokeless tobacco: Never Vaping Use Vaping Use: Never used Substance Use Topics Drug use: Never CURRENT INPATIENT MEDICATIONS atorvastatin, 40 mg, oral, Nightly clopidogrel, 75 mg, oral, Daily metoprolol tartrate, 25 mg, oral, BID pantoprazole, 40 mg, oral, Daily Or pantoprazole, 40 mg, intravenous, Daily heparin, 0-4,000 Units/hr, Last Rate: 1,200 Units/hr (07/19/23 0639) lactated Ringer's, 100 mL/hr, Last Rate: 100 mL/hr (07/19/23 0636) Current Outpatient Medications Medication Instructions clopidogrel (PLAVIX) 75 mg, oral, Daily meloxicam (MOBIC) 7.5 mg, oral, Daily, Unsure if dose is correct
Review of Systems: 12 point review of systems was obtained in detail and is negative other than that detailed above. Vital Signs: Vitals: 07/19/23 0222 BP: 123/63 BP Location: Left arm Patient Position: Sitting Pulse: 71 Resp: 18 Temp: 36.9 C (98.4 F) TempSrc: Temporal SpO2: 97% Weight: 106 kg (233 lb 3.2 oz) Height: 1.727 m (5' 8 ) No intake or output data in the 24 hours ending 07/19/23 0830 Wt Readings from Last 4 Encounters: 07/19/23 106 kg (233 lb 3.2 oz) 07/18/23 108 kg (239 lb) Physical Examination: GENERAL APPEARANCE: Well developed, well nourished, in no acute distress. CHEST: Symmetric and non-tender. INTEGUMENT: Skin warm and dry, without gross excoriationis or lesions. HEENT: No gross abnormalities of conjunctiva, teeth, gums, oral mucosa NECK: Supple, no JVD, no bruit. Thyroid not palpable. Carotid upstrokes normal. NEURO/PSHCY: Alert and oriented x3; appropriate behavior and responses and responses, grossly normal cerebellar function with normal balance and coordination LUNGS: Clear to auscultation bilaterally; normal respiratory effort. HEART: Rate and rhythm regular with no evident murmur; no gallop appreciated. There are no rubs, clicks or heaves. PMI nondisplaced. ABDOMEN: Soft, nontender, no palpable hepatosplenomegaly, no mases, no bruits. Abdominal aorta not noted to be enlarged. MUSCULOSKELETAL: Ambulatory with normal tandem gait. EXTREMITIES: Warm with good color, no clubbing or cyanois. There is no edema noted. PERIPHERAL VASCULAR: Pulses present and equally palpable; 2+ throughout. No femoral bruits. Lab: CBC: Results from last 7 days Lab Units 07/19/23 0600 WBC AUTO x10*3/uL 7.5 RBC AUTO x10*6/uL 5.00 HEMOGLOBIN g/dL 15.1 HEMATOCRIT % 44.3 MCV fL 89 MCH pg 30.2 MCHC g/dL 34.1 RDW % 12.8 PLATELETS AUTO x10*3/uL 248 CMP: Results from last 7 days Lab Units 07/19/23 0600 SODIUM mmol/L 137 POTASSIUM mmol/L 4.0 CHLORIDE mmol/L 104 CO2 mmol/L 26 BUN mg/dL 16 CREATININE mg/dL 1.06 GLUCOSE mg/dL 90 PROTEIN TOTAL g/dL 6.5 CALCIUM mg/dL 8.8 BILIRUBIN TOTAL mg/dL 0.6 ALK PHOS U/L 70 AST U/L 21 ALT U/L 13 BMP: Results from last 7 days Lab Units 07/19/23 0600 SODIUM mmol/L 137 POTASSIUM mmol/L 4.0 CHLORIDE mmol/L 104 CO2 mmol/L 26 BUN mg/dL 16 CREATININE mg/dL 1.06 CALCIUM mg/dL 8.8 GLUCOSE mg/dL 90 Magnesium: Results from last 7 days Lab Units 07/19/23 0600 MAGNESIUM mg/dL 1.98 Troponin: Results from last 7 days Lab Units 07/19/23 0600 TROPHS ng/L 2,181* BNP: Lipid Panel: Diagnostic Studies: @No results found for this or any previous visit. ECG 12 lead Result Date: 07/19/2023 Normal sinus rhythm Possible Inferior infarct , age undetermined Abnormal ECG No previous ECGs available Confirmed by Courtney Shrestha ([id number]) on 07/19/2023 7:31:32 AM No echocardiogram results found for the past 14 days Radiology: Transthoracic Echo (TTE) Complete (Results Pending) Problem List: Patient Active Problem List Diagnosis Acute myocardial infarction due to left coronary artery occlusion (CMS/HCC) Hyperlipidemia Coronary artery disease of [place] artery of [place] heart with stable angina pectoris (CMS/HCC) Asperger's syndrome Elevated troponin Assessment: CAD triple-vessel disease Hypertension Dyslipidemia Plan: Tele monitoring Continue the heparin drip 2D echo Aspirin 81 daily Plavix 75 mg daily for now until seen by CT surgery Lipitor 40 mg daily Add Imdur 30 mg daily Daily EKGs Consult CT surgery for CABG evaluation Further recommendations per Dr Emmanuel Ferro CNP [facility] Of note, this documentation is completed using the [employer] system (voice recognition software). There may be spelling and/or grammatical errors that were not corrected prior to final submission. Patient seen and examined in conjunction with Troy Ferro APRN and agree with the evaluation as noted above. 62-year-old gentleman who was transferred from [facility] for possible angina. He has a history of CAD hypertension dyslipidemia and presented to the hospital with unstable angina with radiation to the left arm. Emergent cardiac catheterization showed severe triple-vessel disease as noted above with 95% LAD, left circumflex as well as RCA. Patient was transferred for CABG. He is currently chest pain-free. EKG shows sinus rhythm with inferolateral ST depression. Cardiac exam reveals regular first and second heart sound, no murmurs are heard. Chest is clear to auscultation. ASSESSMENT AND PLAN: 1. CAD: With severe triple-vessel disease, awaiting cardiac evaluation. In the meantime, we will get an echocardiogram to rule out any significant valvular abnormalities and we will hold his Plavix for impending surgery. Full recommendations to be based on CV surgical evaluation. 2.Hypertension: We will continue to optimize blood pressure control. 3. Dyslipidemia: Continue with her current high intensity lipid-lowering therapy. AKA documented in this encounter [facility] Work Phone: 07-25-2023 History and physical note [facility] Critical Care Medicine Date: 07/25/2023 Patient: Robert Smiley Date of : 1960 Admit Date: 07/19/2023 ===== History of Present Illness: Robert Smiley is a 62 y.o. year old male patient with Past Medical History of HTN, HLD, CAD s/p PCI (2016), and life time non-smoker who presented to OSH Tuesday morning c/o midsternal chest pain that radiated down his arms and woke him from sleep. He was transported via EMS; given SL nitroglycerine x2 en route with resolution of symptoms. Per ED note, EKG showed NSR with t-wave inversion in inferior leads. Troponin peaked at 4598. Pt was given full strength Aspirin, started on Heparin drip, and admitted to telemetry. The following day he underwent coronary angiogram revealing diffuse triple vessel disease and was transferred to [facility] for consideration of CABG. Admitted to ICU on 07/24 s/p: Creation Bypass Graft Coronary Artery X 4 (estes/lad, svg-cx-pda, svg-diag); [place]ARC[place]; [place] [id number] - [place] CABG W/ARTERIAL GRAFT TWO ARTERIAL GRAFTS Median Sternotomy Standard central cannulation Right leg EV CABG x 4 (elvin to LAD, SVG to diagonal, Svg sequential PDA and CX) Interval ICU Events: 07/24: Admit to ICU Medical History: Past Medical History: Diagnosis Date Asperger's syndrome Coronary artery disease Gout Hyperlipidemia Myocardial infarct (CMS/HCC) Past Surgical History: Procedure Laterality Date APPENDECTOMY CORONARY STENT PLACEMENT Medications Prior to Admission Medication Sig Dispense Refill Last Dose clopidogrel (Plavix) 75 mg tablet Take 1 tablet (75 mg) by mouth once daily. meloxicam (Mobic) 7.5 mg tablet Take 1 tablet (7.5 mg) by mouth once daily. Unsure if dose is correct Patient has no known allergies. Social History Tobacco Use Smoking status: Never Smokeless tobacco: Never Vaping Use Vaping Use: Never used Substance Use Topics Drug use: Never No family history on file. Review of Systems: 14 point review of systems was completed and negative except for those specially mention in my HPI Physical Exam: Heart Rate: [66-74] Temp: [36.6 C (97.9 F)-36.8 C (98.2 F)] Resp: [14-18] BP: (122-133)/(62-67) Weight: [103 kg (227 lb 1.2 oz)] SpO2: [94 %-98 %] Physical Exam Constitutional: Comments: Sedated, post-op HENT: Head: Normocephalic. Nose: Nose normal. Mouth/Throat: Mouth: Mucous membranes are moist. Eyes: Pupils: Pupils are equal, round, and reactive to light. Cardiovascular: Rate and Rhythm: Normal rate. Comments: Mediastinal CT x [address] x 1 Pulmonary: Breath sounds: Normal breath sounds. Comments: Intubated, clear bilaterally. Abdominal: Palpations: Abdomen is soft. Skin: General: Skin is warm and dry. Capillary Refill: Capillary refill takes less than 2 seconds. Neurological: General: No focal deficit present. Objective: I have reviewed all medications, laboratory results, and imaging pertinent for today's encounter Assessment/Plan: I am currently managing this critically ill patient for the following problems: Neuro/Psych/Pain Ctrl/Sedation: No history of neurologic deficits. Remains on propofol infusion on arrival from OR. --> - Serial neuro and pain assessments - propofol until ready to extubate - Prn Dilaudid for pain until taking PO, then start Tylenol and oxycodone PO - Lidoderm patches x 72 hours - PT Consult - CAM ICU score q shift - Sleep / wake cycle hygeine Respiratory/ENT: : No history of pulmonary disease. Currently intubated on ventilator. --> - f/u post op CXR - Once alert and awake begin CPAP trials and extubate when criteria met - Maintain SpO2 >92% - ABGs prn - IS q1h and OOB to chair when extubated Cardiovascular: PMHx of HTN, HLD, CAD Arrives to ICU on low-dose norepinephrine infusion. --> - Continuous EKG and ABP monitoring - Maintain Maps 70-90 mmHg - Volume resuscitate as clinically indicated - Chest tubes to wall suction - Maintain Pacer at backup, intrinsic NSR currently - Start ASA tomorrow/tonight - Start statin tomorrow GI: - Continue PPI until extubated - NPO - Colace and miralax bowel regimen when able to take PO Renal/Volume Status (Intra & Extravascular): No history of renal disease. Pre-op serum creatinine near 1.2-> - Continue mac catheter for strict I/Os - Goal UOP 0.5 ml/kg/hr - RFP as clinically indicated - Replete electrolytes per CTICU protocol - LR at 50 ml/hr for now, intermittent boluses guided by clinical assessment and PA pressures Endocrine - Maintain BG <180, insulin per CTICU protocol Infectious Disease: Afebrile, no current indications of infection --> - Trend temp q4h - Periop Vancomycin x 24hr Heme/Onc: Acute blood loss anemia and thrombocytopenia. Baseline hemoglobin 15 reop.--> - Trend CBC and coagulation studies - Goals PLT > 100k, INR < 1.5, Fibrinogen > 150 - Start 81mg ASA tomorrow if appropriate - SCDs for DVT prophylaxis - start SQH tomorrow if adequate platelets and no issues with bleeding Skin: - arrived to ICU from OR with preventative Mepilex dressings in place on sacrum and heels - change preventative Mepilex weekly or more frequently as indicated (when moist/soiled) - every shift skin assessment per nursing and weekly ICU skin rounds - moisture barrier to be applied with radha care - no active skin problems Ethics/Code Status: Full Code Automation Driver: DVT Prophylaxis: hold for now GI Prophylaxis: ppi Bowel Regimen: npo Diet: defer CVC: rightIJ introducer with PA catheter [place]: yes Mac: yes Restraints: if needed until extubated Dispo: ICU Critical Care Time: 65 CHRISTY Stephen DNP H&P reviewed. The patient was examined and there are no changes to the H&P. Source Note - CHRISTY Garcia - 07/19/2023 4:39 PM EST -Inpatient consult to Cardiothoracic Surgery Consult performed by: CHRISTY Garcia Consult ordered by: Attila Salgado MD Reason for consult: Transfer from OSH for CABG eval Reason For Consult Transfer from OSH for CABG eval History Of Present Illness Robert Smiley is a 62 y.o. male with PMHx of HTN, HLD, CAD s/p PCI (2016), and life time non-smoker who presented to OSH Tuesday morning c/o midsternal chest pain that radiated down his arms and woke him from sleep. He was transported via EMS; given SL nitroglycerine x2 en route with resolution of symptoms. Per ED note, EKG showed NSR with t-wave inversion in inferior leads. Troponin peaked at 4598. Pt was given full strength Aspirin, started on Heparin drip, and admitted to telemetry. The following day he underwent coronary angiogram revealing diffuse triple vessel disease and was transferred to [facility] for consideration of CABG. 07/18: Pt seen and evaluated with Dr. Peck. He is afebrile and HDS. Maintaining SR. Adequate SpO2 on RA. Denies angina since admission to OSH. He explains chest pain came on suddenly early Tuesday morning waking him from sleep. Noted radiation down both arms as well as SOB and nausea. Denies palpitations, dizziness, [place]/near syncope, peripheral edema, and diaphoresis. Echo obtained on arrival to [facility] revealed normal LV function with EF 55-60%, no RWMA's, and no hemodynamically significant valvular abnormalities. Pt has been maintained on Plavix since PCI in 2016 and reports last dose was yesterday, 07/17. Findings reviewed with Dr. Peck. We will have to allow 5 days for Plavix washout; tentatively looking at Monday 07/24 for surgical revascularization. Thank you for this consult. Past Medical History He has a past medical history of Asperger's syndrome, Coronary artery disease, Gout, Hyperlipidemia, and Myocardial infarct (CMS/HCC). Surgical History He has a past surgical history that includes Appendectomy and Coronary stent placement. Social History He reports that he has never smoked. He has never used smokeless tobacco. He reports that he does not use drugs. No history on file for alcohol use. Family History No family history on file. Allergies Patient has no known allergies. Review of Systems Constitutional: Negative. HENT: Negative. Respiratory: Positive for shortness of breath. Resolved Cardiovascular: Positive for chest pain. Nocturnal CP prior to arrival. Resolved and has not recurred. Gastrointestinal: Positive for nausea. Resolved Musculoskeletal: Negative. Skin: Negative. All other systems reviewed and are negative. Physical Exam Constitutional: General: He is not in acute distress. Appearance: Normal appearance. He is obese. HENT: Head: Normocephalic and atraumatic. Right Ear: External ear normal. Left Ear: External ear normal. Ears: Comments: Hard of hearing; uses hearing aids Nose: Nose normal. Mouth/Throat: Mouth: Mucous membranes are moist. Pharynx: Oropharynx is clear. Eyes: Extraocular Movements: Extraocular movements intact. Pupils: Pupils are equal, round, and reactive to light. Neck: Comments: No JVD Cardiovascular: Rate and Rhythm: Normal rate and regular rhythm. Pulses: Normal pulses. Heart sounds: Normal heart sounds. Pulmonary: Effort: Pulmonary effort is normal. Breath sounds: Normal breath sounds. Abdominal: Comments: Protuberant but soft. Normoactive BS. Last BM 3/ Musculoskeletal: General: Normal range of motion. Cervical back: Normal range of motion and neck supple. Skin: General: Skin is warm and dry. Neurological: General: No focal deficit present. Mental Status: He is alert and oriented to person, place, and time. Psychiatric: Mood and Affect: Mood normal. Behavior: Behavior normal. Last Recorded Vitals Blood pressure 112/58, pulse 68, temperature 36.5 C (97.7 F), temperature source Temporal, resp. rate 18, height 1.727 m (5' 8 ), weight 106 kg (233 lb 3.2 oz), SpO2 94 %. Relevant Results Scheduled medications aspirin, 81 mg, oral, Daily atorvastatin, 40 mg, oral, Nightly [Held by provider] clopidogrel, 75 mg, oral, Daily isosorbide mononitrate ER, 30 mg, oral, Daily metoprolol tartrate, 25 mg, oral, BID pantoprazole, 40 mg, oral, Daily Or pantoprazole, 40 mg, intravenous, Daily Continuous medications heparin, 0-4,000 Units/hr, Last Rate: 1,400 Units/hr (07/19/23 1057) PRN medications PRN medications: acetaminophen OR acetaminophen OR acetaminophen, heparin, melatonin, nitroglycerin, ondansetron OR ondansetron, polyethylene glycol Results for orders placed or performed during the hospital encounter of 07/19/23 (from the past 24 hour(s)) SST TOP Result Value Ref Range Extra Tube Hold for add-ons. CBC Result Value Ref Range WBC 7.5 4.4 - 11.3 x10*3/uL nRBC 0.0 0.0 - 0.0 /100 WBCs RBC 5.00 4.50 - 5.90 x10*6/uL Hemoglobin 15.1 13.5 - 17.5 g/dL Hematocrit 44.3 41.0 - 52.0 % MCV 89 80 - 100 fL MCH 30.2 26.0 - 34.0 pg MCHC 34.1 32.0 - 36.0 g/dL RDW 12.8 11.5 - 14.5 % Platelets 248 150 - 450 x10*3/uL Comprehensive Metabolic Panel Result Value Ref Range Glucose 90 74 - 99 mg/dL Sodium 137 136 - 145 mmol/L Potassium 4.0 3.5 - 5.3 mmol/L Chloride 104 98 - 107 mmol/L Bicarbonate 26 21 - 32 mmol/L Anion Gap 11 10 - 20 mmol/L Urea Nitrogen 16 6 - 23 mg/dL Creatinine 1.06 0.50 - 1.30 mg/dL eGFR 80 >60 mL/min/1.73m*2 Calcium 8.8 8.6 - 10.3 mg/dL Albumin 3.6 3.4 - 5.0 g/dL Alkaline Phosphatase 70 33 - 136 U/L Total Protein 6.5 6.4 - 8.2 g/dL AST 21 9 - 39 U/L Bilirubin, Total 0.6 0.0 - 1.2 mg/dL ALT 13 10 - 52 U/L Troponin I, High Sensitivity Result Value Ref Range Troponin I, High Sensitivity 2,181 (HH) 0 - 20 ng/L Magnesium Result Value Ref Range Magnesium 1.98 1.60 - 2.40 mg/dL Protime-INR Result Value Ref Range Protime 12.2 9.8 - 12.8 seconds INR 1.1 0.9 - 1.1 APTT Result Value Ref Range aPTT 61 (H) 27 - 38 seconds Heparin Assay, UFH Result Value Ref Range Heparin Unfractionated 0.3 See Comment Below for Therapeutic Ranges IU/mL ECG 12 lead Result Value Ref Range Ventricular Rate 66 BPM Atrial Rate 66 BPM OH Interval 132 ms QRS Duration 80 ms QT Interval 376 ms QTC Calculation(Bazett) 394 ms P [place] 4 degrees R [place] 18 degrees T [place] -24 degrees QRS Count 11 beats Q Onset 214 ms P Onset 148 ms P Offset 191 ms T Offset 402 ms QTC [place] 388 ms Heparin Assay, UFH Result Value Ref Range Heparin Unfractionated 0.2 See Comment Below for Therapeutic Ranges IU/mL Transthoracic Echo (TTE) Complete Result Value Ref Range AV mn grad 4.0 mmHg AV pk gael 1.40 m/s LV biplane EF 59 % LVOT diam 2.00 cm MV E/A ratio 1.07 Tricuspid annular plane systolic excursion 2.5 cm MV avg E/e' ratio 7.73 LA vol index A/L 19.0 ml/m2 RV free wall pk S' 14.30 cm/s LVIDd 3.80 cm Aortic Valve Area by Continuity of Peak Velocity 2.69 cm2 AV pk grad 7.8 mmHg Aortic Valve Area by Continuity of VTI 3.10 cm2 LV A4C EF 58.9 Heparin Assay Result Value Ref Range Heparin Unfractionated 0.5 See Comment Below for Therapeutic Ranges IU/mL SST TOP Result Value Ref Range Extra Tube Hold for add-ons. PST Top Result Value Ref Range Extra Tube Hold for add-ons. Carotid duplex bilateral Result Date: 07/19/2023 Interpreted By: Hector Smith, STUDY: [facility] CAROTID ARTERY DUPLEX BILATERAL; 07/19/2023 2:38 pm INDICATION: Signs/Symptoms:pre-op CABG; r/o carotid stenosis. COMPARISON: None. ACCESSION NUMBER(S): [id number] ORDERING CLINICIAN: MARYANNE YUO TECHNIQUE: Vascular ultrasound of the extracranial carotid system was performed bilaterally. Griffith scale, color Doppler and spectral Doppler waveform analysis was performed. FINDINGS: RIGHT: On the right There is no evidence of atheromatous plaques in the common carotid arteries, visualized portions of the internal carotid arteries, and the proximal external carotid arteries. Doppler studies demonstrate normal flow pattern without evidence of turbulent flow.. The peak systolic velocities are as follows: RIGHT SIDE PEAK SYSTOLIC VELOCITY TABLE: CCA 116 cm/sec. ICA 58 cm/sec. ECA 105 cm/sec. The ratio of the peak systolic velocity of the right ICA/CCA is 0.5. RIGHT VERTEBRAL ARTERY: The right vertebral artery demonstrates proximal normal anterograde flow LEFT: On the left There is no evidence of atheromatous plaques in the common carotid arteries, visualized portions of the internal carotid arteries, and the proximal external carotid arteries. Doppler studies demonstrate normal flow pattern without evidence of turbulent flow.. The peak systolic velocities are as follows: LEFT SIDE PEAK SYSTOLIC VELOCITY TABLE: CCA 99 cm/sec. ICA 54 cm/sec. ECA 98 cm/sec. The ratio of the peak systolic velocity of the left ICA/CCA is 0.6. LEFT VERTEBRAL ARTERY: The left vertebral artery demonstrates proximal normal anterograde flow Normal flow pattern without evidence of hemodynamically relevant stenosis or atheromatous plaques in the visualized portions of the carotid circulation as described above. MACRO: None Signed by: Hector Smith 07/19/2023 3:43 PM Dictation workstation: [id number] XR chest 2 views Result Date: 07/19/2023 Interpreted By: Hector Smith, STUDY: XR CHEST 2 VIEWS; 07/19/2023 2:08 pm INDICATION: Signs/Symptoms:pre-op CABG. COMPARISON: None. ACCESSION NUMBER(S): [id number] ORDERING CLINICIAN: MARYANNE YOU FINDINGS: CARDIOMEDIASTINAL SILHOUETTE: Cardiomediastinal silhouette is normal in size and configuration. LUNGS: Mild left basilar atelectasis is present. No focal consolidation. No pleural effusion or pneumothorax. ABDOMEN: No remarkable upper abdominal findings. BONES: Multilevel predominantly anterior endplate spurring/partially bridging osteophytes are present in the thoracic spine. 1. Mild left basilar atelectasis. No focal consolidation. MACRO: None. Signed by: Hector Smith 07/19/2023 3:41 PM Dictation workstation: [id number] Transthoracic Echo (TTE) Complete Result Date: 07/19/2023 [place] [id number] TRANSTHORACIC ECHOCARDIOGRAM REPORT Patient Name: ROBERT SMILEY Reading Physician: [id number] Dev Ding MD, [facility] Study Date: 07/19/2023 Ordering Provider: [id number] EDUARDO FERRO MRN/PID: [id number] Fellow: Nurse: Mendoza Dowd RN Date of /Age: 5 1960 / 62 years Complaint Investigations Officer: Chloé Lyman RDCS Gender: M Additional Staff: Height: 172.72 cm Admit Date: 07/18/2023 Weight: 105.69 kg Admission Status: Inpatient - Routine BSA / BMI: 2.18 m2 / 35.43 Department Location: [place] [address] Echo Lab Blood Pressure: 112 /58 mmHg Study Type: TRANSTHORACIC ECHO (TTE) COMPLETE Diagnosis/ICD: Encounter for preprocedural cardiovascular examination-Z01.810 Indication: PRE-OP CABG CPT Codes: Echo Complete w Full Doppler-51601 Patient History: Pertinent History: CAD, Hyperlipidemia and MA. Study Detail: The following Echo studies were performed: 2D, M-Mode, Doppler and color flow. Definity used as a contrast agent for endocardial border definition. Total contrast used for this procedure was 2 mL via IV push. The patient was awake. PHYSICIAN INTERPRETATION: Left Ventricle: Left ventricular systolic function is normal, with an estimated ejection fraction of 55-60%. There are no regional wall motion abnormalities. The left ventricular cavity size is normal. The left ventricular septal wall thickness is mildly increased. There is normal left ventricular posterior wall thickness. Spectral Doppler shows an impaired relaxation pattern of left ventricular diastolic filling. Left Atrium: The left atrium is normal in size. Left atrial volume index 18.5 mL/m2. Right Ventricle: The right ventricle is normal in size. There is normal right ventricular global systolic function. Normal right ventricular chamber size and function. Right Atrium: The right atrium is normal in size. Aortic Valve: The aortic valve was not well visualized. There is mild aortic valve cusp calcification. There is no evidence of aortic valve regurgitation. The peak instantaneous gradient of the aortic valve is 7.8 mmHg. The mean gradient of the aortic valve is 4.0 mmHg. Mitral Valve: The mitral valve is normal in structure. There is trace mitral valve regurgitation. Tricuspid Valve: The tricuspid valve is structurally normal. There is trace tricuspid regurgitation. The right ventricular systolic pressure is unable to be estimated. Trivial tricuspid regurgitation. Pulmonic Valve: The pulmonic valve is structurally normal. There is no indication of pulmonic valve regurgitation. Pericardium: There is a trivial pericardial effusion. Aorta: The aortic root is normal. Systemic Veins: The inferior vena cava appears to be of normal size. There is IVC inspiratory collapse greater than 50%. CONCLUSIONS: 1. Left ventricular systolic function is normal with a 55-60% estimated ejection fraction. 2. Spectral Doppler shows an impaired relaxation pattern of left ventricular diastolic filling. 3. Normal right ventricular chamber size and function. 4. Trivial tricuspid regurgitation. 5. No previous available for comparison. QUANTITATIVE DATA SUMMARY: 2D MEASUREMENTS: Normal Ranges: Ao Root d: 2.90 cm (2.0-3.7cm) LAs: 3.70 cm (2.7-4.0cm) IVSd: 1.20 cm (0.6-1.1cm) LVPWd: 0.93 cm (0.6-1.1cm) LVIDd: 3.80 cm (3.9-5.9cm) LVIDs: 2.60 cm LV Mass Index: 58.8 g/m2 LV % FS 31.6 % LA VOLUME: Normal Ranges: LA Vol A4C: 37.5 ml (22+/-6mL/m2) LA Vol A2C: 40.3 ml LA Vol BP: 41.3 ml LA Vol Index A4C: 17.2ml/m2 LA Vol Index A2C: 18.5 ml/m2 LA Vol Index BP: 19.0 ml/m2 LA Area A4C: 15.7 cm2 LA Area A2C: 15.3 cm2 LA Major [place] A4C: 5.6 cm LA Major [place] A2C: 4.9 cm LA Volume Index: 17.9 ml/m2 RA VOLUME BY A/L METHOD: Normal Ranges: RA Vol A4C: 33.3 ml (8.3-19.5ml) RA Vol Index A4C: 15.3 ml/m2 RA Area A4C: 13.7 cm2 RA Major [place] A4C: 4.8 cm AORTA MEASUREMENTS: Normal Ranges: Asc Ao, d: 3.10 cm (2.1-3.4cm) LV SYSTOLIC FUNCTION BY 2D PLANIMETRY (MOD): Normal Ranges: EF-A4C View: 58.9 % (>=55%) EF-A2C View: 54.9 % EF-Biplane: 58.6 % LV DIASTOLIC FUNCTION: Normal Ranges: MV Peak E: 0.85 m/s (0.7-1.2 m/s) MV Peak A: 0.80 m/s (0.42-0.7 m/s) E/A Ratio: 1.07 (1.0-2.2) MV e' 0.11 m/s (>8.0) MV lateral e' 0.11 m/s MV medial e' 0.09 m/s E/e' Ratio: 7.73 (<8.0) MITRAL VALVE: Normal Ranges: MV DT: 229 msec (150-240msec) AORTIC VALVE: Normal Ranges: AoV Vmax: 1.40 m/s (<=1.7m/s) AoV Peak P.8 mmHg (<20mmHg) AoV Mean P.0 mmHg (1.7-11.5mmHg) LVOT Max Gael: 1.20 m/s (<=1.1m/s) AoV VTI: 24.60 cm (18-25cm) LVOT VTI: 24.30 cm LVOT Diameter: 2.00 cm (1.8-2.4cm) AoV Area, VTI: 3.10 cm2 (2.5-5.5cm2) AoV Area,Vmax: 2.69 cm2 (2.5-4.5cm2) AoV Dimensionless Index: 0.99 RIGHT VENTRICLE: RV Basal 3.11 cm RV Mid 2.26 cm RV Major 7.5 cm TAPSE: 25.4 mm RV s' 0.14 m/s TRICUSPID VALVE/RVSP: Normal Ranges: IVC Diam: 1.65 cm PULMONIC VALVE: Normal Ranges: PV Accel Time: 77 msec (>120ms) PV Max Gael: 1.0 m/s (0.6-0.9m/s) PV Max P.7 mmHg [id number] Dev Ding MD, FACC Electronically signed on 07/19/2023 at 2:33:[address] chest wo IV contrast Result Date: 07/19/2023 Interpreted By: Hector Smith, STUDY: CT CHEST WO IV CONTRAST; 07/19/2023 1:48 pm INDICATION: Signs/Symptoms:pre-op CABG; please assess ascending aorta for atherosclerosis and size. COMPARISON: None. ACCESSION NUMBER(S): [id number] ORDERING CLINICIAN: MARYANNE YOU TECHNIQUE: Contiguous unenhanced axial images were obtained through the chest. Images were reformatted in axial, coronal, and sagittal planes. FINDINGS: LUNGS and AIRWAYS: Small bands of subsegmental atelectasis or scar are present in the left lower lobe anteriorly as well as the lingula. Mild dependent atelectasis present bilaterally. No focal consolidation. No pleural effusion or pneumothorax. MEDIASTINUM and LITO, LOWER NECK AND AXILLA: No mediastinal or hilar lymphadenopathy is seen. No axillary lymphadenopathy. HEART and VESSELS: There is no thoracic aortic aneurysm. Ascending thoracic aorta is uniform in caliber measuring approximately 3.1 x 3.1 cm in transverse and AP diameters. Small irregular calcifications are seen at the aortic root level. No additional calcification is seen in the ascending thoracic aorta. Small atherosclerotic calcification is seen in the distal aortic arch. Descending thoracic aorta is uniform in caliber measuring 2.4 cm in diameter. Coronary artery calcifications and/or stents are present. No pericardial effusion. Heart is not significantly enlarged. UPPER ABDOMEN: Gallbladder is not abnormally distended and contains mixed attenuation gallstone in the dependent portion toward the base. No pericholecystic inflammation is seen. No biliary dilation. CHEST WALL and OSSEOUS STRUCTURES: There is mild S-shaped scoliosis of the thoracic spine. Multilevel disc space narrowing and predominantly anterior endplate spurring/partially bridging osteophytes are most prominent in the mid-lower thoracic spine. 1. No thoracic aortic aneurysm. Ascending thoracic aorta measures 3.1 cm in diameter. 2. Irregular calcification at the aortic root level. No evidence of calcification in the ascending thoracic aorta. 3. Cholelithiasis. No pericholecystic inflammation. No biliary dilation. MACRO: None. Signed by: Hector Smiht 07/19/2023 2:09 PM Dictation workstation: [id number] ECG 12 lead Result Date: 07/19/2023 Normal sinus rhythm Possible Inferior infarct , age undetermined Abnormal ECG No previous ECGs available Confirmed by Courtney Shrestha ([id number]) on 07/19/2023 7:31:32 AM CARDIAC CATHETERIZATION PROCEDURE - ONBASE SCAN Result Date: 07/18/2023 Ordered by an unspecified provider. Assessment/Plan CAD; NSTEMI Hx of CAD s/p PCI x2 (2017) maintained on Plavix since (last dose 07/18). Presented to OSH c/o midsternal CP that woke him from sleep. Ruled in as NSTEMI. Underwent coronary angiogram revealing diffuse TVD. Pt transferred to [facility] for consideration of surgical revascularization. -Discussed with Dr. Peck at bedside -awaiting cath images from OSH -tentatively planning CABG Monday 07/24 (to allow for Plavix washout) -Medical management per Cardiology; appreciate assistance -ASA and Statin daily -Hold Plavix; will need resumed post operatively for ACS/NSTEMI -Metoprolol 25mg BID -Imdur 30mg daily -Heparin drip per protocol -cardiac diet -IS education -Activity as tolerated -pre-op testing has been completed -thank you for this consult HTN; HLD -no on medications at home but has not seen Fire Hose Curer in many years -Statin daily -Metoprolol 25mg BID -Imdur 30mg daily -optimize medical management as hemodynamics allow I spent 60 minutes in the professional and overall care of this patient. History Of Present Illness Robert Smiley is a 62 y.o. male who was transferred from [facility] for evaluation for CABG. Patient presented initially to outside facility for chest pain. His pain was typical, retrosternal and left-sided, radiated to the neck and shoulder, improved with nitroglycerin and aspirin. He was found to have T wave inversion in lateral leads on initial EKG. His troponin was elevated above 600 then trended up to above 4000. He had cardiac cath performed found to have 90% occlusion of the LAD, and more occlusions in circumflex and other arteries. He was referred to this facility for cardiology evaluation for possible CABG. I have seen the patient at bedside after arrival, he was awake, alert, oriented, no acute distress. He was hemodynamically stable. I did review his paperwork/charts from outside facility. Patient arrived on heparin drip. Will continue heparin drip here until discharge. Of note: This patient has history of coronary artery disease status post 2 stents 2015. He has autism/Asperger. He lives alone, and has family members lives close by. He denies any shortness of breath with exertion, and denies leg swelling. Patient denies smoking. Occasional alcohol use. Denies illicit drug use. Has family history of coronary artery disease/his mother. Past Medical History Past Medical History: Diagnosis Date Asperger's syndrome Coronary artery disease Gout Hyperlipidemia Myocardial infarct (CMS/HCC) Surgical History Past Surgical History: Procedure Laterality Date APPENDECTOMY CORONARY STENT PLACEMENT Social History He reports that he has never smoked. He has never used smokeless tobacco. He reports that he does not use drugs. No history on file for alcohol use. Family History No family history on file. Allergies Patient has no known allergies. Review of Systems 10/10 points review of system were conducted, negative except as above Physical Exam Constitutional: Appearance: He is obese. He is not ill-appearing, toxic-appearing or diaphoretic. HENT: Head: Normocephalic and atraumatic. Nose: Nose normal. Mouth/Throat: Mouth: Mucous membranes are moist. Eyes: General: No scleral icterus. Extraocular Movements: Extraocular movements intact. Conjunctiva/sclera: Conjunctivae normal. Pupils: Pupils are equal, round, and reactive to light. Neck: Vascular: No carotid bruit. Cardiovascular: Rate and Rhythm: Normal rate and regular rhythm. Pulses: Normal pulses. Heart sounds: Normal heart sounds. No murmur heard. No friction rub. No gallop. Pulmonary: Effort: Pulmonary effort is normal. Breath sounds: Normal breath sounds. No stridor. No wheezing, rhonchi or rales. Chest: Chest wall: No tenderness. Abdominal: General: Abdomen is flat. There is no distension. Palpations: Abdomen is soft. There is no mass. Tenderness: There is no abdominal tenderness. There is no right CVA tenderness, left CVA tenderness, guarding or rebound. Hernia: No hernia is present. Musculoskeletal: General: No tenderness. Normal range of motion. Cervical back: Normal range of motion and neck supple. No rigidity or tenderness. Right lower leg: No edema. Left lower leg: No edema. Lymphadenopathy: Cervical: No cervical adenopathy. Skin: General: Skin is warm and dry. Findings: No lesion or rash. Neurological: General: No focal deficit present. Mental Status: He is alert and oriented to person, place, and time. Mental status is at baseline. Psychiatric: Mood and Affect: Mood normal. Behavior: Behavior normal. Last Recorded Vitals Blood pressure 123/63, pulse 71, temperature 36.9 C (98.4 F), temperature source Temporal, resp. rate 18, height 1.727 m (5' 8 ), weight 106 kg (233 lb 3.2 oz), SpO2 97 %. Relevant Results Scheduled medications atorvastatin, 40 mg, oral, Nightly clopidogrel, 75 mg, oral, Daily metoprolol tartrate, 25 mg, oral, BID pantoprazole, 40 mg, oral, Daily Or pantoprazole, 40 mg, intravenous, Daily Continuous medications heparin, 0-4,000 Units/hr lactated Ringer's, 100 mL/hr PRN medications PRN medications: acetaminophen OR acetaminophen OR acetaminophen, heparin, melatonin, ondansetron OR ondansetron, polyethylene glycol Assessment/Plan Principal Problem: Acute myocardial infarction due to left coronary artery occlusion (CMS/HCC) Active Problems: Hyperlipidemia Coronary artery disease of stillaguamish artery of stillaguamish heart with stable angina pectoris (CMS/HCC) Asperger's syndrome This patient presented with typical chest pain found to have T wave inversion in the lateral leads, and has significantly elevated troponin. Patient was found to have 90% occlusion of LAD. He also has other stenosis at the branches. Patient was transferred to this facility for evaluation by cardiology for possible CABG. Currently patient has no chest pain. -Will obtain EKG. -Repeat troponin, and check other labs including CBC, INR, PTT, and chemistry. -Obtain the records for echocardiogram. -Cardiology consult. -Keep n.p.o. for now except for meds. -Continuous telemetry monitoring. -Check magnesium level. -Resume atorvastatin and Plavix. He was on Plavix before admission. -Continue on heparin drip for now. Monitor heparin assay. -Pantoprazole for GI prophylaxis. Anjum Nieto MD documented in this encounter [facility] Work Phone: 05-25-2023 Hospital Discharge instructions Patient Education 05/25/2023 11:52:17 Prostate Cancer Screening Prostate Cancer Screening Prostate [...] treatment? Where to find more information The [place] [employer]: www.cancer.org [place] [employer]: www.auanet.org Contact a health care [...] provider. Document Revised: 10/26/2021 Document Reviewed: 10/26/2021 [employer] Patient Education 2022 [employer] Follow Up Care 05/04/2023 11:32:51 With:Cora Lee MD, URL, URO Address: [address] [place] [address]- [phone] When: Unknown Comments:1 yr w/ PSA [facility] 10-27-2022 Hospital Discharge instructions Follow Up Care 10/27/2022 10:03:28 With:Cora Lee MD, URL, URO Address: [address] [place] [address]- [phone] When: Unknown [facility] 10-27-2022 Hospital Discharge instructions Patient Education 10/27/2022 [...] treatment? Where to find more information The [place] [employer]: www.cancer.org [place] [employer]: www.auanet.org Contact a health care [...] provider. Document Revised: 10/26/2021 Document Reviewed: 10/26/2021 [employer] Patient Education 2022 [employer]. Follow Up Care 04/28/2022 12:57:05 With:Jesus ROD, OFLEIA Friedman, URO Address: When: Unknown [facility] 04-28-2022 Hospital Discharge instructions Patient Education 04/28/2022 [...] if anything looks unusual. Men with a lmeaoc-pftj-hjvfai risk for skin cancer may want to see a software testing specialist (complaint investigations officer) for an annual body check. Where to find more information National Cancer [place]: https://www.cancer.gov/about-canc er/screening Centers for Disease Control and Prevention: https://www.cdc.gov/cancer/dcpc/p revention/screening.htm [place] [employer]: https://www.cancer.org/latest-new s/5-wnninr-axrccwpbu-zkqut-cux-di n.html Contact a health care provider if: You [...] 01/27/2017 Document Revised: 01/19/2019 Document Reviewed: 01/27/2017 [employer] Patient Education 2020 [employer]. Follow Up Care 12/23/2021 08:37:49 With:Jesus ROD, OFELIA Friedman, URO Address: When:6 months Comments:w/ PSA F/T [facility] 03-15-2022 History of Present illness Narrative Discharge [...] they were given pre-op instructions from Dr. Phan's office, no questions at this time. Attempted PAT phone call; no answer; message left to return PAT phone call. Dr. Phan's office notified that PAT has been unsuccessful [...] leave a message documented in this encounter [facility] Work Phone: 03-15-2022 Hospital Discharge instructions Bianca Phan, - 03/15/2022 10:16 AM EDT SAME DAY [...] the healing period. The office number is [phone]. Take surgery bag and all eye drops to Dr. Phan's office tomorrow at 10:05am. You may resume your normal diet. Start your eye drops tomorrow after your post-op appointment: Ofloxacin/Polytrim one drop to the operated eye 4 times daily Prednisolone one drop to the operated eye 4 times daily documented in this encounter [facility] Work Phone: 12-23-2021 Hospital Discharge instructions Patient [...] urethra. Follow these instructions at home: Take fjkc-ygo-pvlznui and prescription medicines only as told by [...] 05/02/2006 Document Revised: 03/27/2019 Document Reviewed: 06/06/2017 [employer] Patient Education 2020 [employer]. Follow Up Care 12/18/2021 14:19:29 With:Jesus ROD, OFELIA Friedman, URO Address: When:Within 4 Month(s) Comments:PSA F/T [facility] 11-18-2021 Hospital Discharge instructions Patient Education 11/18/2021 [...] if anything looks unusual. Men with a zwdonc-nyie-ywfgtf risk for skin cancer may want to see a software testing specialist (complaint investigations officer) for an annual body check. Where to find more information National Cancer [place]: https://www.cancer.gov/about-canc er/screening Centers for Disease Control and Prevention: https://www.cdc.gov/cancer/dcpc/p revention/screening.htm [place] [employer]: https://www.cancer.org/latest-new s/5-fqecof-iigfsblho-dhrzj-tpm-ff n.html Contact a health care provider if: You [...] 01/27/2017 Document Revised: 01/19/2019 Document Reviewed: 01/27/2017 [employer] Patient Education 2020 [employer]. Follow Up Care 09/14/2021 14:58:32 With:Jesus ROD, OFELIA Friedman, URO Address: When: Unknown [facility] 09-14-2021 Hospital Discharge instructions Patient Education 09/14/2021 [...] prostate. Follow these instructions at home: Take ltmj-ysu-qqbadvi and prescription medicines only as told by [...] 04/29/2001 Document Revised: 07/15/2018 Document Reviewed: 01/20/2017 [employer] Patient Education 2020 [employer]. Follow Up Care 09/08/2021 13:18:17 With:Cora Lee MD, URL, URO Address: [phone] When:10/26/2021 Comments:w/estee [facility] Evaluation + Plan note Future Appointments Appointment Date:11/18/2021 10:15:00 AM Scheduled Provider:Cora Lee MD Location:[facility] Appointment Type:URO Office Visit Diagnostic Tests PendingPSA Free & Total 09/14/21 [facility] Evaluation + Plan note Future Appointments Appointment Date:04/28/2022 10:15:00 AM Scheduled Provider:Cora Lee MD Location:[facility] Appointment Type:URO Office Visit Diagnostic Tests PendingPSA Free & Total 12/23/21 [facility] Evaluation + Plan note Future Appointments Appointment Date:10/27/2022 09:30:00 AM Scheduled Provider:Cora Lee MD Location:[facility] Appointment Type:URO Office Visit Diagnostic Tests PendingPSA Free & Total 04/28/22 [facility] Evaluation + Plan note Future Appointments Appointment Date:05/04/2023 09:45:00 AM Scheduled Provider:Cora Lee MD Location:[facility] Appointment Type:URO Office Visit Diagnostic Tests PendingPSA Free & Total 10/27/22 [facility] Evaluation + Plan note Future Appointments Appointment Date:05/25/2023 11:00:00 AM Scheduled Provider:Cora Lee MD Location:[facility] Appointment Type:URO Office Visit [facility] Evaluation + Plan note Future Appointments Appointment Date:05/30/2024 10:45:00 AM Scheduled Provider:Cora Lee MD Location:[facility] Appointment Type:URO Office Visit Diagnostic Tests PendingPSA Free & Total 05/25/23 [facility] Evaluation + Plan note Future Appointments Appointment Date:02/27/2025 10:45:00 AM Scheduled Provider:Cora Lee MD Location:[facility] Appointment Type:URO Office Visit [facility] Evaluation + Plan note Future Appointments Appointment Date:02/27/2025 10:45:00 AM Scheduled Provider:Jesus ROD, Cora Gupta Location:[facility] Appointment Type:URO Office Visit Diagnostic Tests PendingPSA Free & Total 11/28/24 [facility] Evaluation note No assessment inform ation available [facility] Work Phone: Evaluation note Diagnosis 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 Other and combined forms of senile cataract documented in this encounter [facility] Work Phone: evaluation note* Diagnosis Acute myocardial infarction due to left coronary artery occlusion (CMS/HCC)- Primary Acute myocardial infarction due to left coronary artery occlusion (CMS/HCC) Coronary artery disease of stillaguamish artery of stillaguamish heart with stable angina pectoris (CMS/HCC) Encounter for preprocedural cardiovascular examination Paroxysmal atrial fibrillation (CMS/HCC) Atrial fibrillation Acute post-operative pain Anemia due to blood loss Acute posthemorrhagic anemia Asperger's syndrome Other specified pervasive developmental disorders, current or active state Hyperlipidemia Other and unspecified hyperlipidemia Coronary artery disease of stillaguamish artery of stillaguamish heart with stable angina pectoris (CMS/HCC) Asperger's syndrome Other specified pervasive developmental disorders, current or active state Elevated troponin Other abnormal blood chemistry documented in this encounter [facility] Work Phone: Evaluation note* Diagnosis Shortness of breath Dizziness Dizziness and giddiness documented in this encounter [facility] Work Phone: Evaluation note* Diagnosis S/P CABG x 4 Postsurgical aortocoronary bypass status documented in this encounter [facility] Work Phone: Evaluation note* Diagnosis Pleural effusion- Primary Unspecified pleural effusion documented in this encounter [facility] Work Phone: Evaluation note* Diagnosis S/P CABG x 4 Postsurgical aortocoronary bypass status documented in this encounter [facility] Work Phone: Evaluation note* Diagnosis S/P CABG x 4 Postsurgical aortocoronary bypass status documented in this encounter [facility] Work Phone: Evaluation note* Diagnosis Multi-vessel coronary artery stenosis- Primary High risk medication use Mixed hyperlipidemia Persistent atrial fibrillation (Multi) Atrial fibrillation Anticoagulated Encounter for long-term (current) use of anticoagulants Pleural effusion Unspecified pleural effusion documented in this encounter [facility] Work Phone: Evaluation note* Diagnosis Multi-vessel coronary artery stenosis- Primary Mixed hyperlipidemia Postoperative atrial fibrillation (Multi) BMI 32.0-32.9,adult Coronary artery disease of stillaguamish artery of stillaguamish heart with stable angina pectoris documented in this encounter [facility] Work Phone: Evaluation note* Diagnosis Multi-vessel coronary artery stenosis Mixed hyperlipidemia Postoperative atrial fibrillation (Multi) documented in this encounter [facility] Work Phone: Evaluation note* Diagnosis Multi-vessel coronary artery stenosis- Primary Postoperative atrial fibrillation (Multi) Mixed hyperlipidemia BMI 34.0-34.9,adult Never smoked tobacco Coronary artery disease of stillaguamish artery of stillaguamish heart with stable angina pectoris documented in this encounter [facility] Work Phone: Hospital course Narrative No data available for this section [facility] Hospital Discharge instructions No data available for this section [facility] progress note No data available for this section [facility] reason for referral (narrative)* Consultation (Routine) - Authorized Specialty Diagnoses / Procedures Referred By Contac t Referred To Contact Diagnoses Coronary artery disease of stillaguamish artery of stillaguamish heart with stable angina pectoris (CMS/HCC) Paroxysmal atrial fibrillation (CMS/HCC) Asperger's syndrome Maryanne You, [employer]PAR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 CONTRACT [address] [address] Referral ID Status Reason Start Date Expiration Date Visits Requested Visits Authorized [id number] Authorized Specialty Services Required 07/31/2023 07/30/2024 1 1 * Home Health (Routine) - Authorized Specialty Diagnoses / Procedures Referred By Contac t Referred To Contact Home Health Services Diagnoses Coronary artery disease of stillaguamish artery of stillaguamish heart with stable angina pectoris (CMS/HCC) Paroxysmal atrial fibrillation (CMS/HCC) Acute post-operative pain Maryanne You APRN-CNP [address] [place] [address] Referral ID Status Reason Start Date Expiration Date Visits Requested Visits Authorized [id number] Authorized Specialty Services Required 07/30/2023 07/29/[phone] [facility] Work Phone: Reldbe for referral (narrative)* Consultation (Routine) - Authorized Specialty Diagnoses / Procedures Referred By Contac t Referred To Contact Cardiac Rehabilitation Diagnoses Multi-vessel coronary artery stenosis Leonard Ramirez MD [address] [facility] [place] [address] Referral ID Status Reason Start Date Expiration Date Visits Requested Visits Authorized [id number] Authorized Specialty Services Required 09/09/2023 09/08/2024 1 1 * Cardiovascular (Routine) - Authorized Specialty Diagnoses / Procedures Referred By Contac t Referred To Contact Diagnoses Persistent atrial fibrillation (Multi) Procedures ECG 12 Lead Leonard Ramirez MD [address] [facility] 2, [address] [place] [address] Referral ID Status Reason Start Date Expiration Date V isits Requested Visits Authorized [id number] Authorized 09/09/2023 09/08/2024 1 1 * Consultation (Routine) - Authorized Specialty Diagnoses / Procedures Referred By Contac t Referred To Contact Cardiology Diagnoses Multi-vessel coronary artery stenosis Procedures Follow Up In Cardiology Leonard Ramirez MD 703 [facility] 2, [address] [address] Leonard Ramirez MD 703 [facility] 2, [address] [address] Referral ID Status Reason Start Date Expiration Date V isits Requested Visits Authorized [id number] Authorized 09/09/2023 09/08/2024 1 1 [facility] Work Phone: Reason for visit Narrative* CV Imaging (Routine) - Authorized Specialty Diagnoses / Procedures Referred By Contac t Referred To Contact Cardiology Diagnoses Multi-vessel coronary artery stenosis Mixed hyperlipidemia Postoperative atrial fibrillation (Multi) Procedures Transthoracic Echo Complete [place] ECHO TTHRC R-T 2D W/WOM-MODE COMPL SPEC&COLR D Leonard Ramirez MD 703 [facility] 2, [address] [address] Phone: tel: fax: Referral ID Status Reason Start Date Expiration Date Visits Requested Visits Authorized [id number] Authorized Perform Procedure 4 03/14/2025 1 1 [facility] Work Phone: Summary Purpose Family History No Family History Records Found Relationship Condition Age at Onset Recorded Date/T karl Not Specified Diabetes mellitus Unknown Heart disease Unknown father Malignant neoplasm Unknown Advance Directives No Advanced Directives Records Found Advance Directive Response Recorded Date/ Time Advance Directives No October 12 10:30pm Latest Code Status on File Code Status Date Activated Date Inactivated Comments Full Code 03/15/2022 8:51 AM Full Code 09/04/2018 7:57 AM 09/04/2018 11:49 AM Latest Code Status on File Code Status Date Activated Date Inactivated Comments Full Code 07/19/2023 5:46 AM Question Answer Comments Plan of Care: Code Status Discussion Completed Decision Maker: Patient Documents on File Type Date Recorded Patient Financial Counselor Expl anation Healthcare Power of Atty 08/01/2023 Living Will 08/01/2023 Latest Code Status on File Code Status Date Activated Date Inactivated Comments Full Code 07/19/2023 5:46 AM Question Answer Comments Plan of Care: Code Status Discussion Completed Decision Maker: Patient Documents on File Type Date Recorded Patient Financial Counselor Expl anation Healthcare Power of Atty 08/01/2023 Living Will 08/01/2023 Date Activated Date Inactivated Comments 07/19/2023 5:46 AM Question Answer Comments Plan of Care: Code Status Discussion Completed Decision Maker: Patient Date Activated Date Inactivated Comments 07/19/2023 5:46 AM Question Answer Comments Plan of Care: Code Status Discussion Completed Decision Maker: Patient Chief Complaint and Reason for Visit Chief Complaint r97.20 z80.42 n41.9 Reason for Referral Specialty Diagnoses / Procedures Referred By Contac t Referred To Contact Radiology Diagnoses S/P CABG x 4 Procedures XR chest 2 [place] [address] [facility] Department [place] [address] Referral ID Status Reason Start Date Expiration Date Visits Requested Visits Authorized [id number] Authorized Perform Procedure 08/22/2023 08/21/2024 1 1 Additional Source Comments (unrecognized sect ion and content) No Status Records FoundNo Status Records FoundNo Status Records FoundNo Status Records FoundNo Status Records FoundNo Status Records FoundNo Status Records FoundNo Status Records Found INFORMATION SOURCE (unrecogn ized section and content) DATE CREATED AUTHOR 02/25/2019 [facility] DATE CREATED AUTHOR AUTHOR'S ORGANIZ ATION 03/15/2022 [facility] DATE CREATED AUTHOR AUTHOR'S ORGANIZ ATION 07/20/2022 [facility] DATE CREATED AUTHOR AUTHOR'S ORGANIZ ATION 07/31/2023 [facility] DATE CREATED AUTHOR AUTHOR'S ORGANIZ ATION 08/11/2023 [facility] DATE CREATED AUTHOR AUTHOR'S ORGANIZ ATION 10/23/2024 [facility] DATE CREATED AUTHOR AUTHOR'S ORGANIZ ATION 11/29/2024 [facility] DATE CREATED AUTHOR AUTHOR'S ORGANIZ ATION 12/01/2024 [facility] Auto Car[employer] Driver Team (unrecognized sect ion and content) Team Status: Inactive Member Role Status Dates Daniele Hernandez DO Primary Care Provider Active Cora Lee MD Attending Provider Active Team Status: Active Member Role Status Dates Daniele Hernandez , Primary Care Provider Active Knitting Tester Relationship Specialty Start Date End Date Trace, Sr Daniele Levy, [address] [place] [address] PCP - General Family Medicine 03/10/22 Knitting Tester Relationship Specialty Start Date End Date Generic Provider, [place] [address] PCP - General Manager Java 08/25/23 Knitting Tester Relationship Specialty Start Date End Date Generic Provider, No [place] [address] PCP - General Manager Java 08/25/23 Knitting Tester Relationship Specialty Start Date End Date Generic Provider, No [place] [address] PCP - General Manager Java 08/25/23 Knitting Tester Relationship Specialty Start Date End Date Generic Provider, No [place] [address] PCP - General Manager Java 08/25/23 Knitting Tester Relationship Specialty Start Date End Date Generic Provider, No [place] [address] PCP - General Manager Java 08/25/23 Knitting Tester Relationship Specialty Start Date End Date Generic Provider, No [place] [address] PCP - General Manager Java 08/25/23 Knitting Tester Relationship Specialty Start Date End Date Nohemy Mills, PREPAR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 CONTRACT [address] [place] [address] PCP - General Family Medicine 11/21/24 Goals (unrecognized section and content) Goals may be documented in a n alternate section Reason for Visit (unrecogniz ed section and content) Specialty Diagnoses / Procedures Referred By Contac t Referred To Contact Diagnoses Combined forms of age-related cataract of right eye COMBINED FORMS OF AGE RELATED CAT 1+NS, 3+PSC, 2+CS Procedures [place] XCAPSL CTRC RMVL INSJ IO LENS PROSTH W/O ECP EYE CATARACT EMULSIFICATION IOL IMPLANT Bianca Phan, DO [address] [place] [address] [facility] [address] [place] [address] Referral ID Status Reason Start Date Expiration Date Visits Re quested Visits Authorized [id number] 1 1 Specialty Diagnoses / Procedures Referred By Joaquin mckeon Referred To Contact Diagnoses Acute myocardial infarction due to left coronary artery occlusion (CMS/HCC) heart failure Procedures INPATIENT Anjum Nieto MD [address] [place] [address] [facility] [address] [place] [address] Referral ID Status Reason Start Date Expiration Date Visits Re quested Visits Authorized [id number] 1 1 Reason Comments Blood Pressure Check Specialty Diagnoses / Procedures Referred By Joaquin mckeon Referred To Contact Diagnoses Shortness of breath Dizziness Procedures ECG 12 Lead Leonard Ramirez MD 703 [facility] 2, [address] [address] Referral ID Status Reason Start Date Expiration Date V isits Requested Visits Authorized [id number] Authorized 08/16/2023 08/15/2024 1 1 Specialty Diagnoses / Procedures Referred By Joaquin mckeon Referred To Contact Radiology Diagnoses S/P CABG x 4 Procedures XR chest 2 [place] [address] [facility] [place] [address] Referral ID Status Reason Start Date Expiration Date Visits Requested Visits Authorized [id number] Authorized Perform Procedure 08/22/2023 08/21/2024 1 1 Reason Comments Post-op Open Heart Surgery Reason Comments Post-op Visit Reason Comments New Patient Visit Follow up s/p CABG a t [facility] 3-17-24 Specialty Diagnoses / Procedures Referred By Contac t Referred To Contact Diagnoses Persistent atrial fibrillation (Multi) Procedures ECG 12 Lead Leonard Ramirez MD [address] [place] [address] 2, [address] [address] Referral ID Status Reason Start Date Expiration Date V isits Requested Visits Authorized [id number] Authorized 09/09/2023 09/08/2024 1 1 Reason Comments Follow-up 6 months Specialty Diagnoses / Procedures Referred By Joaquin t Referred To Contact Cardiology Diagnoses Multi-vessel coronary artery stenosis Procedures Follow Up In Cardiology Leonard [facility] 2, [address] [address] Phone: tel: fax: Leonard Ramirez MD [facility] 2, [address] [address] Phone: tel: fax: Referral ID Status Reason Start Date Expiration Date V isits Requested Visits Authorized [id number] Authorized 09/09/2023 09/08/2024 1 1 Reason Comments Follow-up Patient here for 9 m [facility] follow up for coronary artery stenosis, denies cardiac c/o at this time. Specialty Diagnoses / Procedures Referred By Joaquin t Referred To Contact Cardiology Diagnoses Multi-vessel coronary artery stenosis Procedures Follow Up In Cardiology Leonard Ramirez MD [address] [facility] [address], [address] [address] Phone: tel: fax: Leonard Ramirez MD [address] [place] [address] 2, [address] [address] Phone: tel: fax: Referral ID Status Reason Start Date Expiration Date V isits Requested Visits Authorized [id number] Authorized 03/14/2024 03/14/2025 1 1 Scheduled Active and Recently Administ [...] the admin. comments., Pre-op (day of surgery) 905 (Given - Provid er: Rozina Solorzano RN)09 [...] surgery) 905 (Given - Provid er: Rozina Solorzano RN)915 (Given - Provider: Rozina Solorzano RN)09 (Given [...] minutes, starting 30 minutes prior to surgery, [facility] - enter number of doses based on [...] Intra-op 0954 (Given - Provid er: Bianca Phan DO) lidocaine PF 1 % injection (CANCELED) PRN, Starting on Tue03/15/22 at 0955, Until Tue03/15/22 at 1007, Intra-op 0955 (Given - Provid er: Bianca Phan DO) sodium chloride flush 0.9 % injection [...] Intra-op 0955 (Given - Provid er: Bianca Phan DO) Scheduled Medication Order 07/29/2023 07/30/2023 07/31/2023 amiodarone (Nexterone) 150 mg in dextrose,iso-osm 100 mL (1.5 mg/mL) IV (premix) (COMPLETED) 150 mg, intravenous, Administer over 10 Minutes, Once, On Tue07/29/23 at 1400, For 1 dose, Use in-line filter. Administer through central venous catheter whenever available. Premix 1357 (New Bag - Provider: Bjorn Ponce RN)1407 (Stopped - Provider: Bjorn Ponce RN) amiodarone (Pacerone) tablet 200 mg 200 mg, oral, Daily, First dose on Tue08/02/23 at 0900 amiodarone (Pacerone) tablet 400 mg 400 mg, oral, Daily, First dose on Tue07/28/23 at 1200, For 5 doses 0803 (Given - Provider: Bjorn Ponce RN)1721 (MAR Hold - Provider: Automatic Transfer Provider - Reason: Unreviewed Transfer Orders)1916 (JUL Unhold - Provider: Israel Carlos RN) 0956 (Given - Provider: Elaina Mckeon RN) 0854 (Given - Provider: Gabriella Medrano RN) apixaban (Eliquis) tablet 5 mg 5 mg, oral, Every 12 hours, First dose on Tue07/29/23 at 1945 2013 (Given - Provider: Israel Carlos RN) 0957 (Given - Provider: Elaina Mckeon RN)2050 (Given - Provider: Juanita Yang RN) 0854 (Given - Provider: Gabriella Medrano, QUIRINO)2099 (Due - Provider: Ambrose Lira, BarbaraD) aspirin chewable tablet 81 mg 81 mg, oral, Daily, First dose on Tue07/26/23 at 0900, HOLD for platelets LESS than 50,000. 0801 (Given - Provider: Bjorn Ponce RN)1720 (JUL Hold - Provider: Automatic Transfer Provider - Reason: Unreviewed Transfer Orders)1916 (JUL Unhold - Provider: Israel Carlos RN) 0957 (Given - Provider: Elaina Mckeon RN) 0854 (Given - Provider: Gabriella Medrano RN) atorvastatin (Lipitor) tablet 40 mg 40 mg, oral, Nightly, First dose on Tue07/19/23 at 2100 172 (JUL Hold - Provider: Automatic Transfer Provider - Reason: Unreviewed Transfer Orders)1916 (JUL Unhold - Provider: Israel Carlos RN)2013 (Given - Provider: Israel Carlos RN) 2050 (Given - Provider: Juanita Yang RN) 2099 (Due) colchicine tablet 0.6 mg 0.6 mg, oral, Every 12 hours, First dose on Tue07/27/23 at 1015, For 10 days 1022 (Given - Provider: Bjorn Ponce RN)172 (JUL Hold - Provider: Automatic Transfer Provider - Reason: Unreviewed Transfer Orders)1916 (JUL Unhold - Provider: Israel Carlos RN)2106 (Given - Provider: Israel Carlos RN - Comment: pt request, wants to go to sleep)2214 (Not Given - Provider: Israel Carlos RN - Reason: Other - Comment: given at 2106 pt request) 0956 (Given - Provider: Elaina Mckeon, QUIRINO)2053 (Given - Provider: Juanita Yang RN - Comment: pt request so he can go to sleep) 0911 (Given - Provider: Gabriella Medrano, QUIRINO)2215 (Due) docusate sodium (Colace) capsule 100 mg (CANCELED) 100 mg, oral, 3 times daily, First dose on Tue07/26/23 at 1100 0803 (Given - Provider: Bjorn Ponce RN)1500 (Not Given - Provider: Bjorn Ponce RN - Reason: Other - Comment: pt had 3 BM's today)172 (JUL Hold - Provider: Automatic Transfer Provider - Reason: Unreviewed Transfer Orders)191 (MAR Unhold - Provider: Israel Carlos RN)2100 (Not Given - Provider: Israel Carlos RN - Reason: Patient/family refused) 0956 (Given - Provider: Elaina Mckeon RN) furosemide (Lasix) injection 20 mg (COMPLETED) 20 mg, intravenous, Once, On Tue07/29/23 at 1030, For 1 dose 1024 (Given - Provider: Bjorn Ponce, QUIRINO) furosemide (Lasix) injection 40 mg (CANCELED) 40 mg, intravenous, Daily, First dose on Tue07/30/23 at 1200 1233 (Given - Provider: Elaina Mckeon RN) 0900 (Not Given - Provider: Gabriella Medrano RN - Reason: Patient/family refused - Comment: despite education on benefits) furosemide (Lasix) tablet 40 mg 40 mg, oral, Daily, First dose on Tue08/01/23 at 0900, For 5 doses heparin (porcine) injection 5,000 Units (CANCELED) 5,000 Units, subcutaneous, Every 8 hours, First dose on Tue07/26/23 at 0815 0026 (Given - Provider: Ector Faust RN)0741 (Given - Provider: Bjorn Ponce, QUIRINO)1637 (Given - Provider: Bjorn Ponce RN)1721 (MAR Hold - Provider: Automatic Transfer Provider - Reason: Unreviewed Transfer Orders)191 (MAR Unhold - Provider: Maryanne You APRN-MANAGER CONTRACT) iron polysaccharides (Nu-Iron,Niferex) capsule 150 mg 150 mg, oral, Daily, First dose on Tue07/29/23 at 1215 1217 (Given - Provider: Bjorn Ponce RN)1721 (JUL Hold - Provider: Automatic Transfer Provider - Reason: Unreviewed Transfer Orders)1916 (JUL Unhold - Provider: Israel Carlos, RN) 0957 (Given - Provider: Elaina Mckeon, QUIRINO) 0854 (Given - Provider: Gabriella Medrano RN) lactated Ringer's bolus 500 mL (COMPLETED) 500 mL, intravenous, at 250 mL/hr, Administer over 2 Hours, Once, On Tue07/29/23 at 1500, For 1 dose 1504 (New Bag - Provider: Bjorn Ponce RN)1704 (Stopped - Provider: Bjorn Ponce RN) magnesium oxide (Mag-Ox) tablet 400 mg 400 mg, oral, Daily, First dose on Tue07/29/23 at 1315 1332 (Given - Provider: Bjorn Ponce, QUIRINO)1721 (JUL Hold - Provider: Automatic Transfer Provider - Reason: Unreviewed Transfer Orders)1916 (JUL Unhold - Provider: Israel Carlos, QUIRINO) 0957 (Given - Provider: Elaina Mckeon, QUIRINO) 0854 (Given - Provider: Gabriella Medrano RN) magnesium sulfate IV 4 g (COMPLETED) 4 g, intravenous, at 25 mL/hr, Administer over 4 Hours, Once, On Tue07/29/23 at 1315, For 1 dose 1326 (New Bag - Provider: Bjorn Ponce RN)1726 (Stopped - Provider: Bjorn Ponce RN) metoprolol tartrate (Lopressor) injection 5 mg (COMPLETED) 5 mg, intravenous, Once, On Tue07/29/23 at 1300, For 1 dose 1245 (Given - Provider: Bjorn Ponce, QUIRINO) metoprolol tartrate (Lopressor) tablet 25 mg (CANCELED) 25 mg, oral, 2 times daily, First dose (after last modification) on Tue07/28/23 at 2100, Hold for MAP<65 and/or HR<60 0803 (Given - Provider: Bjorn Ponce, QUIRINO) metoprolol tartrate (Lopressor) tablet 25 mg 25 mg, oral, 3 times daily, First dose (after last modification) on Tue07/29/23 at 1330, Hold for MAP<65 and/or HR<60 1332 (Given - Provider: Bjorn Ponce RN)172 (MAR Hold - Provider: Automatic Transfer Provider - Reason: Unreviewed Transfer Orders)1916 (MAR Unhold - Provider: Israel Carlos, QUIRINO)2019 (Given - Provider: Israel Carlos RN) 0957 (Given - Provider: Elaina Mckeon, QUIRINO)142 (Given - Provider: Elaina Mckeon RN)2049 (Given - Provider: Juanita Yang, QUIRINO) 0854 (Given - Provider: Gabriella Medrano, QUIRINO)1500 (Due)2100 (Due) mupirocin (Bactroban) 2 % ointment Topical, 2 times daily, First dose on Tue07/24/23 at 1245, Apply to bilateral nares 0804 (Given - Provider: Bjorn Ponce RN - Comment: nares)2018 (Given - Provider: Israel Carlos RN) 0957 (Given - Provider: Elaina Mckeon, QUIRINO)2054 (Given - Provider: Juanita Yang, QUIRINO) 0900 (Given - Provider: Gabriella Medrano, QUIRINO)2100 (Due) polyethylene glycol (Glycolax, Miralax) packet 17 g (CANCELED) 17 g, oral, Daily, First dose on Tue07/25/23 at 1415, Bowel Regimen - for prevention of constipation. 0804 (Given - Provider: Bjorn Ponce RN)172 (MAR Hold - Provider: Automatic Transfer Provider - Reason: Unreviewed Transfer Orders)1916 ([facility] Unhold - Provider: Israel Carlos RN) 0900 (Not Given - Provider: Elaina Mckeon RN - Reason: Other - Comment: patient having loose stools) potassium chloride CR (Klor-Con M20) ER tablet 20 mEq (COMPLETED) 20 mEq, oral, Once, On Tue07/29/23 at 1315, For 1 dose, Best given with food and plenty of water to minimize gastric irritation. Do not crush or chew. 1333 (Given - Provider: Bjorn Ponce RN) potassium chloride CR (Klor-Con M20) ER tablet 20 mEq (COMPLETED) 20 mEq, oral, Once, On Tue07/30/23 at 1200, For 1 dose, Best given with food and plenty of water to minimize gastric irritation. Do not crush or chew. 1232 (Given - Provider: Elaina Mckeon, QUIRINO) potassium chloride CR (Klor-Con M20) ER tablet 20 mEq 20 mEq, oral, Daily, First dose on Tue08/01/23 at 0900, For 5 doses, Best given with food and plenty of water to minimize gastric irritation. Do not crush or chew. PRN Medication Order 07/29/2023 07/30/2023 07/31/2023 acetaminophen (Tylenol) tablet 650 mg(Linked Group 1) 650 mg, oral, Every 4 hours PRN, fever (temp greater than 38.0 C), greater than or equal to 38 C, Starting on Tue07/19/23 at 0545, If ordered PRN for pain, nurse is permitted to administer this medication for higher pain scores based on patient preference? Yes 172 ([facility] Hold - Provider: Automatic Transfer Provider - Reason: Unreviewed Transfer Orders)1916 ([facility] Unhold - Provider: Israel Carlos, QUIRINO)2104 (Given - Provider: Israel Carlos, RN) 123 (Given - Provider: Elaina Mckeon, QUIRINO)2052 (Given - Provider: Juanita Yang, QUIRINO) alum-mag hydroxide-simeth (Mylanta) 200-200-20 mg/5 mL oral suspension 5 mL 5 mL, oral, 4 times daily PRN, indigestion, heartburn, Starting on Tamika 07/21/23 at 0822 172 ([facility] Hold - Provider: Automatic Transfer Provider - Reason: Unreviewed Transfer Orders)1916 ([facility] Unhold - Provider: Israel Carlos, QUIRINO) bisacodyl (Dulcolax) suppository 10 mg 10 mg, rectal, Daily PRN, constipation, second line, Starting on Tue07/25/23 at 1355, 2nd line for treatment of constipation - contact provider if no bowel movement in past 48 hours. 172 ([facility] Hold - Provider: Automatic Transfer Provider - Reason: Unreviewed Transfer Orders)1916 ([facility] Unhold - Provider: Israel Carlos, QUIRINO) dextrose 50 % injection 25 g(Linked Group 2) 25 g, intravenous, Every 15 min PRN, low blood sugar - see comments, For BG 70 mg/dL or LESS & HAS IV access, Starting on Tue07/25/23 at 1657, IF patient HAS a secure IV access & is Unconscious, Conscious, NPO or Unable to Eat or Drink. Give IV Push at 2-3 mL/minute. Repeat every 15 minutes until BG reaches 100 mg/dL or greater, then DISCONTINUE. 172 ([facility] Hold - Provider: Automatic Transfer Provider - Reason: Unreviewed Transfer Orders)1916 ([facility] Unhold - Provider: Israel Carlos, QUIRINO) glucagon (Glucagen) injection 1 mg(Linked Group 2) 1 mg, intramuscular, Every 15 min PRN, low blood sugar - see comments, For BG 70 mg/dL or LESS & NO IV access, Starting on Tue07/25/23 at 1657, IF patient DOES NOT have secure IV access & is Unconscious, Conscious, NPO or Unable to Eat or Drink. Repeat every 15 minutes until BG reaches 100 mg/dL or greater, then DISCONTINUE. 172 ([facility] Hold - Provider: Automatic Transfer Provider - Reason: Unreviewed Transfer Orders)1916 ([facility] Unhold - Provider: Israel Carlos RN) ipratropium-albuteroL (Duo-Neb) 0.5-2.5 mg/3 mL nebulizer solution 3 mL 3 mL, nebulization, Every 6 hours PRN, wheezing, Starting on Tue07/25/23 at 1355 1721 ([facility] Hold - Provider: Automatic Transfer Provider - Reason: Unreviewed Transfer Orders)1916 ([facility] Unhold - Provider: Israel Carlos RN) magnesium sulfate IV 2 g 2 g, intravenous, at 25 mL/hr, Administer over 2 Hours, Every 6 hours PRN, magnesium level 1.7-1.9 mg/dL, Starting on Tue07/25/23 at 1355 1721 ([facility] Hold - Provider: Automatic Transfer Provider - Reason: Unreviewed Transfer Orders)1916 ([facility] Unhold - Provider: Israel Carlos RN) magnesium sulfate IV 4 g 4 g, intravenous, at 25 mL/hr, Administer over 4 Hours, Every 6 hours PRN, magnesium level 1.4 - 1.6 mg/dL, Starting on Tue07/25/23 at 1355 1721 ([facility] Hold - Provider: Automatic Transfer Provider - Reason: Unreviewed Transfer Orders)1916 ([facility] Unhold - Provider: Israel Carlos RN) melatonin tablet 3 mg 3 mg, oral, Nightly PRN, sleep, Starting on Tue07/19/23 at 0546 172 ([facility] Hold - Provider: Automatic Transfer Provider - Reason: Unreviewed Transfer Orders)1916 ([facility] Unhold - Provider: Israel Carlos, QUIRINO) metoclopramide (Reglan) injection 10 mg(Linked Group 3) 10 mg, intravenous, Every 6 hours PRN, nausea/vomiting, first line, Starting on Tue07/25/23 at 1355, Give IV if patient is unable to take orally. 172 ([facility] Hold - Provider: Automatic Transfer Provider - Reason: Unreviewed Transfer Orders)1916 ([facility] Unhold - Provider: Israel Carlos RN) metoclopramide (Reglan) tablet 10 mg(Linked Group 3) 10 mg, oral, Every 6 hours PRN, nausea/vomiting, first line, Starting on Tue07/25/23 at 1355, 1st Line. If inadequate response within 60 minutes, proceed to next-line agent or contact provider if no further options ordered. 172 ([facility] Hold - Provider: Automatic Transfer Provider - Reason: Unreviewed Transfer Orders)1916 ([facility] Unhold - Provider: Israel Carlos RN) naloxone (Narcan) injection 0.2 mg 0.2 mg, intravenous, Every 5 min PRN, respiratory depression, Starting on Tue07/25/23 at 1355, If respiratory rate is less than 8 breaths/minute or patient is difficult to arouse stop any narcotics and contact physician. Administer slow IV push. Repeat as ordered until patient's respiratory rate is greater than 12 breaths/minute. 172 ([facility] Hold - Provider: Automatic Transfer Provider - Reason: Unreviewed Transfer Orders)1916 ([facility] Unhold - Provider: Israel Carlos, QUIRINO) oxyCODONE (Roxicodone) immediate release tablet 5 mg 5 mg, oral, Every 4 hours PRN, pain moderate (4-6), first line, Starting on Tue07/25/23 at 1355, If ordered PRN for pain, nurse is permitted to administer this medication for higher pain scores based on patient preference? Yes 172 ([facility] Hold - Provider: Automatic Transfer Provider - Reason: Unreviewed Transfer Orders)1916 ([facility] Unhold - Provider: Israel Carlos RN) oxygen (O2) therapy inhalation, Continuous PRN - O2/gases, other, Starting on Tue07/25/23 at 1355, Device: Ventilator, FIO2: 100, Keep O2 Sat Above: 92% potassium chloride CR (Klor-Con M20) ER tablet 20 mEq 20 mEq, oral, Every 6 hours PRN, Potassium level 3.8 - 3.9 mmol/L, Starting on Tue07/26/23 at 1031, Best given with food and a glass of water to minimize gastric irritation. Do not crush or chew. 1720 ([facility] Hold - Provider: Automatic Transfer Provider - Reason: Unreviewed Transfer Orders)1916 ([facility] Unhold - Provider: Israel Carlos RN) potassium chloride CR (Klor-Con M20) ER tablet 40 mEq 40 mEq, oral, Every 6 hours PRN, Potassium level 3.7 mmol/L or less, Starting on Tue07/26/23 at 1031, Best given with food and a glass of water to minimize gastric irritation. Do not crush or chew. 1720 ([facility] Hold - Provider: Automatic Transfer Provider - Reason: Unreviewed Transfer Orders)1916 ([facility] Unhold - Provider: Israel Carlos RN) Linked Groups Order Group 1: acetaminophen (Tylenol) tablet 650 mgJump to med 650 mg, oral, Every 4 hours PRN, fever (temp greater than 38.0 C), greater than or equal to 38 C, Starting on Tue07/19/23 at 0545
If ordered PRN for pain, nurse is permitted to administer this medication for higher pain scores based on patient preference? Yes Or acetaminophen (Tylenol) oral liquid 650 mg (CANCELED) 650 mg, nasogastric tube, Every 4 hours PRN, fever (temp greater than 38.0 C), greater than or equal to 38 C, Starting on Tue07/19/23 at 0545 Or acetaminophen (Tylenol) suppository 650 mg (CANCELED) 650 mg, rectal, Every 4 hours PRN, fever (temp greater than 38.0 C), greater than or equal to 38 C, Starting on Tue07/19/23 at 0545
If ordered PRN for pain, nurse is permitted to administer this medication for higher pain scores based on patient preference? Yes Group 2: dextrose 50 % injection 25 gJump to med 25 g, intravenous, Every 15 min PRN, low blood sugar - see comments, For BG 70 mg/dL or LESS & HAS IV access, Starting on Tue07/25/23 at 1657
IF patient HAS a secure IV access & is Unconscious, Conscious, NPO or Unable to Eat or Drink. Give IV Push at 2-3 mL/minute. Repeat every 15 minutes until BG reaches 100 mg/dL or greater, then DISCONTINUE.
Or glucagon (Glucagen) injection 1 mgJump to med 1 mg, intramuscular, Every 15 min PRN, low blood sugar - see comments, For BG 70 mg/dL or LESS & NO IV access, Starting on Tue07/25/23 at 1657
IF patient DOES NOT have secure IV access & is Unconscious, Conscious, NPO or Unable to Eat or Drink. Repeat every 15 minutes until BG reaches 100 mg/dL or greater, then DISCONTINUE.
Group 3: metoclopramide (Reglan) tablet 10 mgJump to med 10 mg, oral, Every 6 hours PRN, nausea/vomiting, first line, Starting on Tue07/25/23 at 1355
1st Line. If inadequate response within 60 minutes, proceed to next- line agent or contact provider if no further options ordered.
Or metoclopramide (Reglan) injection 10 mgJump to med 10 mg, intravenous, Every 6 hours PRN, nausea/vomiting, first line, Starting on Tue07/25/23 at 1355
Give IV if patient is unable to take orally.
FOR RECORDS PERTAINING TO PATIENTS WHO ARE [...] BE BASED ON THE PRIMARY CLINICAL RECORDS. [email or web address]. provides no warranty or guarantee of the accuracy or completeness of information in this document.
[2025-02-20 04:08] LABS: PSA, Free 0.93 ng/mL
== END 2025-02-19 12:04 | disposition home or self-care (01) ==
LOC: LAB 12:04
PROVIDERS: Visit Provider Urology
DX: E78.2 Mixed hyperlipidemia (principal); R97.20 Elevated prostate specific antigen [PSA]; Z80.42 Family history of malignant neoplasm of prostate
CPT/HCPCS: 36415; 80061; 84153; 84154

== ENCOUNTER 2025-02-19 12:05 | Outpatient (OUT) | payer OTHER, SELFPAY ==
--- OUTSIDE RECORDS SUMMARY | 2025-02-19 12:19 | XMS_ITS | CCD ---
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 Director Name Role Phone Daniele Hernandez Primary Care Physician DO Daniele Hernandez Primary Care Provider [phone] MD Cora Lee Attending Provider House , [...] Consulting Unavailable Daniele Hernandez Primary Care Physician Unavailable Primary Care Provider Unavailabl e Unavailable [...] Provider Unavailable LEONARD RAMIREZ Referring Unavailable Gene TRIAL MANAGEMENT ASSOCIATE-COMMUNICATION EQUIPMENT REPAIRERNohemy Primary Care P cathleen SHAMCO, GEOVANNY Primary Care Unavailable Cora Lee Attending Unavailable SHAMMO, GEOVANNY Primary Care Unavailable Cora eLe Attending Unavailable SHAMMO, GEOVANNY Primary Care Unavailable [...] Medication Allergies] Propensity to adverse reactions (disorder) [facility] Repository Medications Current Medications Medication Drug [...] table t Indications: Coronary artery disease of [place] artery of [place] heart with stable angina pectoris Chew and [...] mg tablet Indications: Coronary artery disease of [place] artery of [place] heart with stable angina pectoris Take 1 [...] week(s), # 28 tab(s), Refills(s) 0, Pharmacy: [facility], 176, cm, 09/14/21 14:27:00 EDT, Height/Length [...] magnesium) tablet Indications: Coronary artery disease of [place] artery of [place] heart with stable angina pectoris (CMS-HCC) , [...] mg tablet Indications: Coronary artery disease of [place] artery of [place] heart with stable angina pectoris (CMS-HCC) , [...] release tablet Indications: Coronary artery disease of [place] artery of [place] heart with stable angina pectoris (CMS-HCC) , [...] Daily, # 30 cap(s), Refills(s) 3, Pharmacy: [facility], 176, cm, 11/18/21 10:41:00 EDT, Height/Length [...] (Normalized) Sig (Original) 500 ml albumin human, long-term 50 mg/ml injection (5 sources) Human Serum [...] mg tablet Indications: Coronary artery disease of [place] artery of [place] heart with stable angina pectoris (CMS-HCC) Take [...] resume nomogram. 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] Onset: 09-14-2021 Episodic Other aftercare (5 sources) Taking high risk medication; Translations: [Other assisted (current) drug therapy] Onset: 09-09-2023 Resolved: 11-21-2024 09-09-2023 Episodic Other aftercare (5 sources) Drug therapy finding; Translations: [custodial (current) use of anticoagulants] Onset: 09-09-2023 Resolved: [...] Cora Lee MD Where: [facility] [address] [place] [address]- You Need to Schedule the Following Appointments Follow Up with Cora Lee MD, URL, URO When: Comments: 3 mos w/ PSA Where: [address] [place] [address]- [phone] Medications What How Much When Instructions Unchanged [...] rectal exam (more content not included)... Normal [facility] Urology Office/Clinic Noteon 11-28-2024 Urology Office/Clinic [...] upon bx and 21% likelihood of detecting Romulus score >7 cancer. MRI of prostate 12/07/21 [...] URL, URO [address], [place] [address] [phone] Additional Instructions: 3 mos w/ PSA Patient [...] (COVID-19) mRNA-[id number] (more content not included)... Normal [facility] Comment on above: Result Comment: Elec [...] prefers to have blood work done at [facility], orders will need to be sent prior to f/u appointment on 11/28/24. Patient stopped into [place] office. Order was written and given to ptHILTON Felix [facility] TRANSTHORACIC ECHO (TTE) COM PLETEon 10-18-2024 TRANSTHORACIC ECHO (TTE) COMPLETE [address], [address] [place] [address] TRANSTHORACIC ECHOCARDIOGRAM REPORT Patient Name: ROBERT Armando Physician: [id number] Ramirez MD Study Date: 10/18/2024 Ordering Provider: [id number] RAMIREZ MRN/PID: [id number] Fellow: Nurse: Date of /Age: 5 1960 / 64 years Pre Owned Sales Consultant: Gayle Gottlieb RDCS, RVT Gender Assigned at Additional Staff: : Height: 172.72 cm Admit Date: Weight: 96.62 kg Admission Status: Outpatient BSA / BMI: 2.10 m2 / 32.39 Department Location: [facility] kg/[address] Blood Pressure: 114 /68 mmHg Study Type: TRANSTHORACIC ECHO (TTE) COMPLETE Diagnosis/ICD: Atherosclerotic heart disease of [place] coronary artery without angina pectoris-I25.10; Unspecified atrial fibrillation-I48.91 Indication: Hyperlipidemia, CABG-07/2023, Ischemic Cardiomyopathy, Asberger Syndrome CPT Codes: Echo Complete w Full Doppler-22412 Study Detail: The following Echo studies were [...] RV s' 0.11 (more content not included)... [facility] Urology Office/Clinic Noteon 05-30-2024 Urology Office/Clinic Note [...] with voice recognition artificial intelligence software, specifically Ardian, Vetr and or DealCurious. Substitutions may have occurred due to the inherent limitations of voice recognition and artificial intelligence software. Documentation recorded by the scribBere rodriguez, accurately reflects the services(s) I performed and decisions made by me. Authenticated by Dr. Lee on 05/30/2024 15:28:44. Problem List/Past Medical History Ongoing Antiplatelet or antith (more content not included)... Normal [facility] Comment on above: Result Comment: Elec tronically Signed By: Cora Lee MD\.br\Date and Time Signed: 05/30/24 15:29 EST\.br\Electronically Co-Signed By: Bere Hendrickson\.br\Date and Time Co-Signed: 05/30/24 11:49 EST ECG 12 Leadon 09-09-2023 Normal sinus rhythm with nonspecific inferior and inferolateral ST-T changes [facility] Work Phone: XR Chest 2 Viewson 4 Cardiomegaly and left pleural effusion. Streaky density in left lung base, which may be related to atelectasis or infiltrate. MACRO: None Signed by: Sarah Musa 08/26/2023 6:42 PM Dictation workstation: [id number] MMODAL Interpreted By: Sarah Musa, STUDY: XR CHEST 2 VIEWS; 08/25/2023 1:11 pm INDICATION: Signs/Symptoms:s/p cabgx4. COMPARISON: 07/31/2023 ACCESSION NUMBER(S): [id number] ORDERING CLINICIAN: SCAR PECK FINDINGS: Sternotomy wires [...] INDICATION: Signs/Symptoms:s/p cabgx4. COMPARISON: 07/31/2023 ACCESSION NUMBER(S): [id number] ORDERING CLINICIAN: SCAR PECK FINDINGS: Sternotomy wires [...] Sarah Musa 08/26/2023 6:42 PM Dictation workstation: [id number] [facility] Work Phone: XR Chest 2 ViewsOrdered By: Sarah Musa on 08-26-2023 [facility] Work Phone: XR Chest 2 Viewson Radiology Study observation (narrative) [facility] Work Phone: Basic metabolic 2000 panelon 07-31-2023 Anion gap [Moles/Vol] 13 mmol/L 10 - 20 mmol/L [facility] Calcium [Mass/Vol] 8.5 mg/dL Low 8.6 - 10. 3 mg/dL [facility] Chloride [Moles/Vol] 106 mmol/L 98 - 10 7 mmol/L [facility] CO2 [Moles/Vol] 22 mmol/L 21 - 32 mmol/L [facility] Creatinine [Mass/Vol] 1.12 mg/dL 0.50 - 1.30 mg/dL [facility] GFR/1.73 sq M.predicted among non-blacks MDRD (S/P/Bld) [Vol rate/Area] 75 mL/min/{1.73_m2} - PINF [facility] Glucose [Mass/Vol] 96 mg/dL 74 - 99 mg/dL [facility] Interpretation and review of laboratory results Abnormal [facility] Potassium [Moles/Vol] 4.0 mmol/L 3.5 - 5.3 mmol/L [facility] Sodium [Moles/Vol] 137 mmol/L 136 - 145 mmol/L [facility] Urea nitrogen [Mass/Vol] 23 mg/dL 6 - 23 mg/dL [facility] CBC panel Auto (Bld)on 07-30 Erythrocyte distribution width (RBC) [Ratio] 13.6 % 11.5 - 14.5 % [facility] Hematocrit (Bld) [Volume fraction] 30.9 % Low 41.0 - 52.0 % [facility] Hemoglobin (Bld) [Mass/Vol] 9.9 g/dL Low 13.5 - 17.5 g/dL [facility] Interpretation and review of laboratory results Abnormal [facility] MCH (RBC) [Entitic mass] 30.2 pg 26.0 - 34.0 pg [facility] MCHC (RBC) [Mass/Vol] 32.0 g/dL 32.0 - 36.0 g/dL [facility] MCV (RBC) [Entitic vol] 94 fL 80 - 100 fL [facility] Nucleated RBC/100 WBC (Bld) [Ratio] 0.0 % [facility] Platelets (Bld) [#/Vol] 239 10*3/uL [facility] RBC (Bld) [#/Vol] 3.28 10*6/uL Low [facility] WBC (Bld) [#/Vol] 8.2 10*3/uL [facility] ECG 12 Leadon 07-31-2023 Atrial Rate 82 BPM [facility] Work Phone: [phone] P Greenleaf 14 degrees [facility] Work Phone: [phone] P Offset 198 ms [facility] Work Phone: [phone] P Onset 146 ms [facility] Work Phone: [phone] UT Interval 142 ms [facility] Work Phone: [phone] Q Onset 217 ms [facility] Work Phone: [phone] QRS Count 14 beats [facility] Work Phone: [phone] QRS Duration 82 ms [facility] Work Phone: [phone] QT Interval 374 ms [facility] Work Phone: [phone] QTC Calculation(Bazett) 436 ms [facility] Work Phone: [phone] QTC [place] [address] [facility] Work Phone: [phone] R [place] 17 degrees [facility] Work Phone: [phone] T [place] 8 degrees [facility] Work Phone: [phone] T Offset 404 ms [facility] Work Phone: [phone] Ventricular Rate 82 BPM [facility] Work Phone: [phone] MUSE [facility] Work Phone: [phone] [facility] Work Phone: [phone] Atrial Rate 81 BPM [facility] Work Phone: [phone] P [place] 14 degrees [facility] Work Phone: [phone] P Offset [address] [facility] Work Phone: [phone] P Onset 144 ms [facility] Work Phone: [phone] UT Interval 144 ms [facility] Work Phone: [phone] Q Onset 216 ms [facility] Work Phone: [phone] QRS Count 13 beats [facility] Work Phone: [phone] QRS Duration 88 ms [facility] Work Phone: [phone] QT Interval 352 ms [facility] Work Phone: [phone] QTC Calculation(Bazett) 408 ms [facility] Work Phone: [phone] QTC Fredericia 388 ms [facility] Work Phone: [phone] R [place] 7 degrees [facility] Work Phone: [phone] T [place] -30 degrees [facility] Work Phone: [phone] T Offset 392 ms [facility] Work Phone: [phone] Ventricular Rate 81 BPM [facility] Work Phone: [phone] MUSE [facility] Work Phone: [phone] [facility] Work Phone: [phone] Atrial Rate 77 BPM [facility] Work Phone: [phone] P [place] 3 degrees [facility] Work Phone: [phone] P Offset 193 ms [facility] Work Phone: [phone] P Onset 146 ms [facility] Work Phone: [phone] UT Interval 142 ms [facility] Work Phone: [phone] Q Onset 217 ms [facility] Work Phone: [phone] QRS Count 13 beats [facility] Work Phone: [phone] QRS Duration 74 ms [facility] Work Phone: [phone] QT Interval 372 ms [facility] Work Phone: [phone] QTC Calculation(Bazett) 420 ms [facility] Work Phone: [phone] QTC Fredericia 404 ms [facility] Work Phone: [phone] R [place] 1 degrees [facility] Work Phone: [phone] T [place] -14 degrees [facility] Work Phone: [phone] T Offset 403 ms [facility] Work Phone: [phone] Ventricular Rate 77 BPM [facility] Work Phone: [phone] [facility] Work Phone: [phone] [facility] Work Phone: [phone] Atrial Rate 88 BPM [facility] Work Phone: [phone] P [place] 12 degrees [facility] Work Phone: [phone] P Offset 208 ms [facility] Work Phone: [phone] P Onset 155 ms [facility] Work Phone: [phone] UT Interval 142 ms [facility] Work Phone: [phone] Q Onset 226 ms [facility] Work Phone: [phone] QRS Count 15 beats [facility] Work Phone: [phone] QRS Duration 70 ms [facility] Work Phone: [phone] QT Interval 334 ms [facility] Work Phone: [phone] QTC Calculation(Bazett) 404 ms [facility] Work Phone: [phone] QTC Fredericia 379 ms [facility] Work Phone: [phone] R [place] 4 degrees [facility] Work Phone: [phone] T [place] -16 degrees [facility] Work Phone: [phone] T Offset 393 ms [facility] Work Phone: [phone] Ventricular Rate 88 BPM [facility] Work Phone: [phone] [facility] Work Phone: [phone] [facility] Work Phone: [phone] Atrial Rate 77 BPM [facility] Work Phone: [phone] P [place] 49 degrees [facility] Work Phone: [phone] P Offset 187 ms [facility] Work Phone: [phone] P Onset 133 ms [facility] Work Phone: [phone] UT Interval 168 ms [facility] Work Phone: [phone] Q Onset 217 ms [facility] Work Phone: [phone] QRS Count 12 beats [facility] Work Phone: [phone] QRS Duration 90 ms [facility] Work Phone: [phone] QT Interval 370 ms [facility] Work Phone: [phone] QTC Calculation(Bazett) 418 ms [facility] Work Phone: [phone] QTC Fredericia 402 ms [facility] Work Phone: [phone] R [place] 26 degrees [facility] Work Phone: [phone] T [place] -24 degrees [facility] Work Phone: [phone] T Offset 402 ms [facility] Work Phone: [phone] Ventricular Rate 77 BPM [facility] Work Phone: [phone] MUSE [facility] Work Phone: [phone] [facility] Work Phone: [phone] ECG 12 leadon 07-31-2023 Atrial Rate 82 BPM [facility] Work Phone: [phone] P [place] 2 degrees [facility] Work Phone: [phone] P Offset 193 ms [facility] Work Phone: [phone] P Onset 143 ms [facility] Work Phone: [phone] UT Interval 142 ms [facility] Work Phone: [phone] Q Onset 214 ms [facility] Work Phone: [phone] QRS Count 14 beats [facility] Work Phone: [phone] QRS Duration 80 ms [facility] Work Phone: [phone] QT Interval 390 ms [facility] Work Phone: [phone] QTC Calculation(Bazett) 455 ms [facility] Work Phone: [phone] QTC Fredericia 432 ms [facility] Work Phone: [phone] R [place] 12 degrees [facility] Work Phone: [phone] T [place] 6 degrees [facility] Work Phone: [phone] T Offset 409 ms [facility] Work Phone: [phone] Ventricular Rate 82 BPM [facility] Work Phone: [phone] MUSE [facility] Work Phone: [phone] [facility] Work Phone: [phone] Atrial Rate 73 BPM [facility] Work Phone: [phone] P [place] 8 degrees [facility] Work Phone: [phone] P Offset 191 ms [facility] Work Phone: [phone] P Onset 140 ms [facility] Work Phone: [phone] UT Interval 150 ms [facility] Work Phone: [phone] Q Onset 215 ms [facility] Work Phone: [phone] QRS Count 12 beats [facility] Work Phone: [phone] QRS Duration 88 ms [facility] Work Phone: [phone] QT Interval 418 ms [facility] Work Phone: [phone] QTC Calculation(Bazett) 460 ms [facility] Work Phone: [phone] QTC Fredericia 446 ms [facility] Work Phone: [phone] R [place] 9 degrees [facility] Work Phone: [phone] T [place] -11 degrees [facility] Work Phone: [phone] T Offset 424 ms [facility] Work Phone: [phone] Ventricular Rate 73 BPM [facility] Work Phone: [phone] MUSE [facility] Work Phone: [phone] [facility] Work Phone: [phone] Atrial Rate 78 BPM [facility] Work Phone: [phone] P [place] 13 degrees [facility] Work Phone: [phone] P Offset 194 ms [facility] Work Phone: [phone] P Onset 143 ms [facility] Work Phone: [phone] UT Interval 144 ms [facility] Work Phone: [phone] Q Onset 215 ms [facility] Work Phone: [phone] QRS Count 13 beats [facility] Work Phone: [phone] QRS Duration 84 ms [facility] Work Phone: [phone] QT Interval 386 ms [facility] Work Phone: [phone] QTC Calculation(Bazett) 440 ms [facility] Work Phone: [phone] QTC Fredericia 421 ms [facility] Work Phone: [phone] R [place] 15 degrees [facility] Work Phone: [phone] T [place] -11 degrees [facility] Work Phone: [phone] T Offset 408 ms [facility] Work Phone: [phone] Ventricular Rate 78 BPM [facility] Work Phone: [phone] MUSE [facility] Work Phone: [phone] [facility] Work Phone: [phone] ECG 12-LEADon 07-31-2023 ECG 12-LEAD Ventricular Rate 82 Atrial Rate 82 P-R Interval 142 QRS Duration 80 Q-T Interval 390 QTC Calculation(Bazett) 455 P Greenleaf 2 R [place] 12 T [place] 6 QRS Count 14 Q Onset 214 P Onset 143 P Offset 193 T Offset 409 QTC Fredericia 432 Diagnosis Normal sinus rhythm Inferior infarct (cited on or before 19-JUL-2023) Abnormal ECG When compared with ECG of 30-JUL-2023 06:41, (unconfirmed) No significant change was found Confirmed by Heraclio Benitez ([id number]) on 07/31/2023 2:03:31 PM Normal [facility] Electrocardiogram, 12-lead P RN ACS symptomson 07-31-2023 Atrial Rate 174 BPM [facility] Work Phone: Q Onset 220 ms [facility] Work Phone: QRS Count 22 beats [facility] Work Phone: QRS Duration 74 ms [facility] Work Phone: QT Interval 294 ms [facility] Work Phone: QTC Calculation(Bazett) 439 ms [facility] Work Phone: QTC Fredericia 384 ms [facility] Work Phone: R Greenleaf 3 degrees [facility] Work Phone: T [place] -25 degrees [facility] Work Phone: T Offset 367 ms [facility] Work Phone: Ventricular Rate 134 BPM [facility] Work Phone: MUSE [facility] Work Phone: [facility] Work Phone: Glucose Test strip manual (B ld) [Mass/Vol]on 07-31-2023 Glucose [Mass/Vol] 100 mg/dL High 74 - 99 mg/dL [facility] Interpretation and review of laboratory results Abnormal [facility] Glucose [Mass/Vol] 87 mg/dL 74 - 99 mg/dL [facility] Interpretation and review of laboratory results Normal [facility] Hepatic function 2000 panelo n 07-31-2023 Albumin BCP dye [Mass/Vol] 3.3 g/dL Low 3.4 - 5.0 g/dL [facility] ALP [Catalytic activity/Vol] 54 U/L 33 - 136 U/L [facility] ALT With P-5'-P [Catalytic activity/Vol] 15 U/L 10 - 52 U/L [facility] AST With P-5'-P [Catalytic activity/Vol] 17 U/L 9 - 39 U/L [facility] Bilirubin [Mass/Vol] 0.7 mg/dL 0.0 - 1 .2 mg/dL [facility] Bilirubin.direct [Mass/Vol] 0.1 mg/dL 0.0 - 0.3 mg/dL [facility] Interpretation and review of laboratory results Abnormal [facility] Protein [Mass/Vol] 6.1 g/dL Low 6.4 - 8.2 g/dL [facility] Magnesium[facility] 07-31-2023 Magnesium [Mass/Vol] 2.25 mg/dL 1.60 - 2.40 mg/dL [facility] Magnesium [Mass/Vol]on 07-30 Interpretation and review of laboratory results Normal [facility] No Panel Informationon 07-30 [facility] XR Chest 2 Viewson 4 UH MMODAL UH MMODAL [facility] Work Phone: Radiology Study observation (narrative) [facility] Work Phone: XR Chest 2 ViewsOrdered By: Aleida Horvath on 07-31-2023 [facility] Work Phone: CBC panel Auto (Bld)on 07-29 Erythrocyte distribution width (RBC) [Ratio] 13.5 % 11.5 - 14.5 % [facility] Hematocrit (Bld) [Volume fraction] 29.4 % Low 41.0 - 52.0 % [facility] Hemoglobin (Bld) [Mass/Vol] 9.7 g/dL Low 13.5 - 17.5 g/dL [facility] Interpretation and review of laboratory results Abnormal [facility] MCH (RBC) [Entitic mass] 30.1 pg 26.0 - 34.0 pg [facility] MCHC (RBC) [Mass/Vol] 33.0 g/dL 32.0 - 36.0 g/dL [facility] MCV (RBC) [Entitic vol] 91 fL 80 - 100 fL [facility] Nucleated RBC/100 WBC (Bld) [Ratio] 0.0 % [facility] Platelets (Bld) [#/Vol] 236 10*3/uL [facility] RBC (Bld) [#/Vol] 3.22 10*6/uL Low [facility] WBC (Bld) [#/Vol] 8.1 10*3/uL [facility] ECG 12-LEADon 07-30-2023 ECG 12-LEAD Ventricular Rate 73 Atrial Rate 73 P-R Interval 150 QRS Duration 88 Q-T Interval 418 QTC Calculation(Bazett) 460 P Greenleaf 8 R [place]leaf 9 T [place]leaf -11 QRS Count 12 Q Onset 215 P Onset 140 P Offset 191 T Offset 424 QTC Fredericia 446 Diagnosis Normal sinus rhythm Inferior infarct (cited on or before 19-JUL-2023) Abnormal ECG When compared with ECG of 29-JUL-2023 19:34, (unconfirmed) No significant change was found Confirmed by Heraclio Benitez ([id number]) on 07/31/2023 1:59:56 PM Normal [facility] Glucose Test strip manual (B ld) [Mass/Vol]on 07-30-2023 Glucose [Mass/Vol] 100 mg/dL High 74 - 99 mg/dL [facility] Interpretation and review of laboratory results Abnormal [facility] Glucose [Mass/Vol] 92 mg/dL 74 - 99 mg/dL [facility] Interpretation and review of laboratory results Normal [facility] Glucose [Mass/Vol] 79 mg/dL 74 - 99 mg/dL [facility] Interpretation and review of laboratory results Normal [facility] Magnesiumon 03-16-2024 Magnesium [Mass/Vol] 2.43 mg/dL High 1.60 - 2.40 mg/dL [facility] No Panel Informationon 07-29 Interpretation and review of laboratory results Abnormal [facility] Renal function 2000 panelon 07-30-2023 Albumin BCP dye [Mass/Vol] 3.3 g/dL Low 3.4 - 5.0 g/dL [facility] Anion gap [Moles/Vol] 12 mmol/L 10 - 20 mmol/L [facility] Calcium [Mass/Vol] 8.4 mg/dL Low 8.6 - 10. 3 mg/dL [facility] Chloride [Moles/Vol] 105 mmol/L 98 - 10 7 mmol/L [facility] CO2 [Moles/Vol] 24 mmol/L 21 - 32 mmol/L [facility] Creatinine [Mass/Vol] 1.06 mg/dL 0.50 - 1.30 mg/dL [facility] GFR/1.73 sq M.predicted among non-blacks MDRD (S/P/Bld) [Vol rate/Area] 80 mL/min/{1.73_m2} - PINF [facility] Glucose [Mass/Vol] 93 mg/dL 74 - 99 mg/dL [facility] Phosphate [Mass/Vol] 3.4 mg/dL 2.5 - 4 .9 mg/dL [facility] Potassium [Moles/Vol] 4.2 mmol/L 3.5 - 5.3 mmol/L [facility] Sodium [Moles/Vol] 137 mmol/L 136 - 145 mmol/L [facility] Urea nitrogen [Mass/Vol] 22 mg/dL 6 - 23 mg/dL [facility] XR Chest Single viewon 07-29 UH MMODAL UH MMODAL [facility] Work Phone: [facility] Work Phone: Radiology Study observation (narrative) [facility] Work Phone: CBC panel Auto (Bld)on 07-28 Erythrocyte distribution width (RBC) [Ratio] 13.6 % 11.5 - 14.5 % [facility] Hematocrit (Bld) [Volume fraction] 27.6 % Low 41.0 - 52.0 % [facility] Hemoglobin (Bld) [Mass/Vol] 9.1 g/dL Low 13.5 - 17.5 g/dL [facility] Interpretation and review of laboratory results Abnormal [facility] MCH (RBC) [Entitic mass] 29.9 pg 26.0 - 34.0 pg [facility] MCHC (RBC) [Mass/Vol] 33.0 g/dL 32.0 - 36.0 g/dL [facility] MCV (RBC) [Entitic vol] 91 fL 80 - 100 fL [facility] Nucleated RBC/100 WBC (Bld) [Ratio] 0.0 % [facility] Platelets (Bld) [#/Vol] 199 10*3/uL [facility] RBC (Bld) [#/Vol] 3.04 10*6/uL Low [facility] WBC (Bld) [#/Vol] 9.7 10*3/uL [facility] ECG 12-LEADon 07-29-2023 ECG 12-LEAD Ventricular Rate 78 Atrial Rate 78 P-R Interval 144 QRS Duration 84 Q-T Interval 386 QTC Calculation(Bazett) 440 P [place] 13 R [place] 15 T [place] -11 QRS Count 13 Q Onset 215 P Onset 143 P Offset 194 T Offset 408 QTC Fredericia 421 Diagnosis Normal sinus rhythm Inferior infarct (cited on or before 19-JUL-2023) Abnormal ECG When compared with ECG of 29-JUL-2023 07:12, (unconfirmed) No significant change was found Confirmed by Heraclio Benitez ([id number]) on 07/31/2023 1:58:05 PM Normal [facility] ECG 12-LEAD Ventricular Rate 82 Atrial Rate 82 P-R Interval 142 QRS Duration 82 Q-T Interval 374 QTC Calculation(Bazett) 436 P Greenleaf 14 R Greenleaf 17 T Greenleaf 8 QRS Count 14 Q Onset 217 P Onset 146 P Offset 198 T Offset 404 QTC Fredericia 415 Diagnosis Normal sinus rhythm Cannot rule out Inferior infarct (cited on or before 19-JUL-2023) Abnormal ECG When compared with ECG of 28-JUL-2023 06:30, (unconfirmed) Premature supraventricular complexes are no longer Present Confirmed by Heraclio Benitez ([id number]) on 07/31/2023 1:51:32 PM Normal [facility] Glucose Test strip manual (B ld) [Mass/Vol]on 07-29-2023 Glucose [Mass/Vol] 108 mg/dL High 74 - 99 mg/dL [facility] Interpretation and review of laboratory results Abnormal [facility] Glucose [Mass/Vol] 94 mg/dL 74 - 99 mg/dL [facility] Interpretation and review of laboratory results Normal [facility] Glucose [Mass/Vol] 103 mg/dL High 74 - 99 mg/dL [facility] Interpretation and review of laboratory results Abnormal [facility] Glucose [Mass/Vol] 101 mg/dL High 74 - 99 mg/dL [facility] Interpretation and review of laboratory results Abnormal [facility] Magnesiumon 07-29-2023 Magnesium [Mass/Vol] 2.03 mg/dL 1.60 - 2.40 mg/dL [facility] Magnesium [Mass/Vol]on 07-28 Interpretation and review of laboratory results Normal [facility] No Panel Informationon 07-28 [facility] Renal function 2000 panelon 07-29-2023 Albumin BCP dye [Mass/Vol] 3.3 g/dL Low 3.4 - 5.0 g/dL [facility] Anion gap [Moles/Vol] 12 mmol/L 10 - 20 mmol/L [facility] Calcium [Mass/Vol] 8.2 mg/dL Low 8.6 - 10. 3 mg/dL [facility] Chloride [Moles/Vol] 104 mmol/L 98 - 10 7 mmol/L [facility] CO2 [Moles/Vol] 25 mmol/L 21 - 32 mmol/L [facility] Creatinine [Mass/Vol] 1.14 mg/dL 0.50 - 1.30 mg/dL [facility] GFR/1.73 sq M.predicted among non-blacks MDRD (S/P/Bld) [Vol rate/Area] 73 mL/min/{1.73_m2} - PINF [facility] Glucose [Mass/Vol] 101 mg/dL High 74 - 99 mg/dL [facility] Interpretation and review of laboratory results Abnormal [facility] Phosphate [Mass/Vol] 2.8 mg/dL 2.5 - 4 .9 mg/dL [facility] Potassium [Moles/Vol] 4.1 mmol/L 3.5 - 5.3 mmol/L [facility] Sodium [Moles/Vol] 137 mmol/L 136 - 145 mmol/L [facility] Urea nitrogen [Mass/Vol] 22 mg/dL 6 - 23 mg/dL [facility] XR Chest Single viewon 07-28 [facility] Work Phone: [facility] Work Phone: Radiology Study observation (narrative) [facility] Work Phone: CBC panel Auto (Bld)on 07-27 Erythrocyte distribution width (RBC) [Ratio] 13.6 % 11.5 - 14.5 % [facility] Hematocrit (Bld) [Volume fraction] 27.2 % Low 41.0 - 52.0 % [facility] Hemoglobin (Bld) [Mass/Vol] 8.9 g/dL Low 13.5 - 17.5 g/dL [facility] Interpretation and review of laboratory results Abnormal [facility] MCH (RBC) [Entitic mass] 30.0 pg 26.0 - 34.0 pg [facility] MCHC (RBC) [Mass/Vol] 32.7 g/dL 32.0 - 36.0 g/dL [facility] MCV (RBC) [Entitic vol] 92 fL 80 - 100 fL [facility] Nucleated RBC/100 WBC (Bld) [Ratio] 0.0 % [facility] Platelets (Bld) [#/Vol] 125 10*3/uL Low [facility] RBC (Bld) [#/Vol] 2.97 10*6/uL Low [facility] WBC (Bld) [#/Vol] 8.7 10*3/uL [facility] Calcium, Ionizedon Calcium.ionized (Bld) [Moles/Vol] 1.13 mmol/L 1.1 - 1.33 mmol/L [facility] Calcium.ionized (Bld) [Moles /Vol]on 07-28-2023 Interpretation and review of laboratory results Normal [facility] ECG 12-LEADon 07-28-2023 ECG 12-LEAD Ventricular Rate 81 Atrial Rate 81 P-R Interval 144 QRS Duration 88 Q-T Interval 352 QTC Calculation(Bazett) 408 P Greenleaf 14 R Greenleaf 7 T Greenleaf -30 QRS Count 13 Q Onset 216 P Onset 144 P Offset 198 T Offset 392 QTC Fredericia 388 Diagnosis Sinus rhythm with Premature supraventricular complexes Inferior infarct (cited on or before 19-JUL-2023) Abnormal ECG When compared with ECG of 27-JUL-2023 06:54, (unconfirmed) Premature supraventricular complexes are now Present Confirmed by Heraclio Benitez ([id number]) on 07/31/2023 12:42:54 PM Normal [facility] Glucose Test strip manual (B ld) [Mass/Vol]on 07-28-2023 Glucose [Mass/Vol] 115 mg/dL High 74 - 99 mg/dL [facility] Interpretation and review of laboratory results Abnormal [facility] Glucose [Mass/Vol] 142 mg/dL High 74 - 99 mg/dL [facility] Interpretation and review of laboratory results Abnormal [facility] Glucose [Mass/Vol] 134 mg/dL High 74 - 99 mg/dL [facility] Interpretation and review of laboratory results Abnormal [facility] Glucose [Mass/Vol] 110 mg/dL High 74 - 99 mg/dL [facility] Interpretation and review of laboratory results Abnormal [facility] Glucose [Mass/Vol] 114 mg/dL High 74 - 99 mg/dL [facility] Interpretation and review of laboratory results Abnormal [facility] Magnesiumon 07-28-2023 Magnesium [Mass/Vol] 2.23 mg/dL 1.60 - 2.40 mg/dL [facility] Magnesium [Mass/Vol]on 07-27 Interpretation and review of laboratory results Normal [facility] No Panel Informationon 07-27 [facility] Blood Expiration Date August 15, 2023 23: 59 EDT [facility] Dispense Status RE [facility] PRODUCT BLOOD TYPE [address] [facility] PRODUCT CODE [id number] [facility] Unit ABO A [facility] Unit RH Positive [facility] UNIT VOLUME 350 [facility] XM INTEP COMP [facility] Prepare RBC: 4 Unitson 07-27 Blood Expiration Date August 12, 2023 23: 59 EDT [facility] Blood Expiration Date August 14, 2023 23: 59 EDT [facility] PRODUCT CODE [id number] [facility] Unit Number [id number] [facility] Unit Number [id number] [facility] Unit Number [id number] [facility] Unit Number [id number] [facility] UNIT VOLUME [address] [facility] Renal function 2000 panelon 07-28-2023 Albumin BCP dye [Mass/Vol] 3.4 g/dL 3.4 - 5.0 g/dL [facility] Anion gap [Moles/Vol] 11 mmol/L 10 - 20 mmol/L [facility] Calcium [Mass/Vol] 8.2 mg/dL Low 8.6 - 10. 3 mg/dL [facility] Chloride [Moles/Vol] 103 mmol/L 98 - 10 7 mmol/L [facility] CO2 [Moles/Vol] 25 mmol/L 21 - 32 mmol/L [facility] Creatinine [Mass/Vol] 1.14 mg/dL 0.50 - 1.30 mg/dL [facility] GFR/1.73 sq M.predicted among non-blacks MDRD (S/P/Bld) [Vol rate/Area] 73 mL/min/{1.73_m2} - PINF [facility] Glucose [Mass/Vol] 112 mg/dL High 74 - 99 mg/dL [facility] Interpretation and review of laboratory results Abnormal [facility] Phosphate [Mass/Vol] 2.7 mg/dL 2.5 - 4 .9 mg/dL [facility] Potassium [Moles/Vol] 3.8 mmol/L 3.5 - 5.3 mmol/L [facility] Sodium [Moles/Vol] 135 mmol/L Low 136 - 145 mmol/L [facility] Urea nitrogen [Mass/Vol] 20 mg/dL 6 - 23 mg/dL [facility] XR Chest Single viewon 07-27 [facility] MM[facility]AL [facility] MM[facility]AL [facility] Work Phone: Radiology Study observation (narrative) [facility] Work Phone: XR Chest Single viewOrdered By: Hiren Vizcarra on 07-28-2023 [facility] Work Phone: CBC panel Auto (Bld)Ordered By: Margarita Adames on 07-27-2023 Erythrocyte distribution width (RBC) [Ratio] 13.9 % 11.5 - 14.5 % [facility] Hematocrit (Bld) [Volume fraction] 28.6 % Low 41.0 - 52.0 % [facility] Hemoglobin (Bld) [Mass/Vol] 9.4 g/dL Low 13.5 - 17.5 g/dL [facility] Interpretation and review of laboratory results Abnormal [facility] MCH (RBC) [Entitic mass] 30.8 pg 26.0 - 34.0 pg [facility] MCHC (RBC) [Mass/Vol] 32.9 g/dL 32.0 - 36.0 g/dL [facility] MCV (RBC) [Entitic vol] 94 fL 80 - 100 fL [facility] Platelet mean volume (Bld) [Entitic vol] 11.6 fL High 7.5 - 11.5 fL [facility] Platelets (Bld) [#/Vol] 86 10*3/uL Low [facility] RBC (Bld) [#/Vol] 3.05 10*6/uL Low [facility] WBC (Bld) [#/Vol] 8.3 10*3/uL [facility] Calcium, Ionizedon 4 Calcium.ionized (Bld) [Moles/Vol] 1.15 mmol/L 1.1 - 1.33 mmol/L [facility] Calcium.ionized (Bld) [Moles /Vol]on 07-27-2023 Interpretation and review of laboratory results Normal [facility] ECG 12-LEADon 07-27-2023 ECG 12-LEAD Ventricular Rate 77 Atrial Rate 77 P-R Interval 142 QRS Duration 74 Q-T Interval 372 QTC Calculation(Bazett) 420 P Greenleaf 3 R Greenleaf 1 T Greenleaf -14 QRS Count 13 Q Onset 217 P Onset 146 P Offset 193 T Offset 403 QTC Fredericia 404 Diagnosis Normal sinus rhythm Inferior infarct (cited on or before 19-JUL-2023) Anterior injury pattern ACUTE FL / STEMI Abnormal ECG When compared with ECG of 26-JUL-2023 23:45, (unconfirmed) Sinus rhythm has replaced Atrial fibrillation Confirmed by Heraclio Benitez ([id number]) on 07/31/2023 12:30:19 PM Normal [facility] ECG 12-LEAD Ventricular Rate 134 Atrial Rate 174 QRS Duration 74 Q-T Interval 294 QTC Calculation(Bazett) 439 R Greenleaf 3 T Greenleaf -25 QRS Count 22 Q Onset 220 T Offset 367 QTC Fredericia 384 Diagnosis Atrial fibrillation with rapid ventricular response Inferior infarct (cited on or before 19-JUL-2023) Abnormal ECG When compared with ECG of 26-JUL-2023 06:43, (unconfirmed) Atrial fibrillation has replaced Sinus rhythm Confirmed by Heraclio Benitez ([id number]) on 07/31/2023 12:10:06 PM Normal [facility] Glucose Test strip manual (B ld) [Mass/Vol]on 07-27-2023 Glucose [Mass/Vol] 155 mg/dL High 74 - 99 mg/dL [facility] Interpretation and review of laboratory results Abnormal [facility] Glucose [Mass/Vol] 125 mg/dL High 74 - 99 mg/dL [facility] Interpretation and review of laboratory results Abnormal [facility] Glucose [Mass/Vol] 138 mg/dL High 74 - 99 mg/dL [facility] Interpretation and review of laboratory results Abnormal [facility] Glucose [Mass/Vol] 135 mg/dL High 74 - 99 mg/dL [facility] Interpretation and review of laboratory results Abnormal [facility] MagnesiumOrdered By: Linda zamudio on 07-27-2023 Magnesium [Mass/Vol] 2.24 mg/dL 1.60 - 2.40 mg/dL [facility] Magnesium [Mass/Vol]Ordered By: Linda Orourke on 07-27-2023 Interpretation and review of laboratory results Normal [facility] Renal function 2000 panelon 07-27-2023 Albumin BCP dye [Mass/Vol] 3.6 g/dL 3.4 - 5.0 g/dL [facility] Work Phone: Anion gap [Moles/Vol] 11 mmol/L 10 - 20 mmol/L [facility] Work Phone: Calcium [Mass/Vol] 8.3 mg/dL Low 8.6 - 10. 3 mg/dL [facility] Work Phone: Chloride [Moles/Vol] 104 mmol/L 98 - 10 7 mmol/L [facility] Work Phone: CO2 [Moles/Vol] 25 mmol/L 21 - 32 mmol/L [facility] Work Phone: Creatinine [Mass/Vol] 0.98 mg/dL 0.50 - 1.30 mg/dL [facility] Work Phone: GFR/1.73 sq M.predicted among non-blacks MDRD (S/P/Bld) [Vol rate/Area] 88 mL/min/{1.73_m2} - PINF [facility] Work Phone: Glucose [Mass/Vol] 116 mg/dL High 74 - 99 mg/dL [facility] Work Phone: Interpretation and review of laboratory results Abnormal [facility] Work Phone: Phosphate [Mass/Vol] 2.6 mg/dL 2.5 - 4 .9 mg/dL [facility] Work Phone: Potassium [Moles/Vol] 4.2 mmol/L 3.5 - 5.3 mmol/L [facility] Work Phone: Sodium [Moles/Vol] 136 mmol/L 136 - 145 mmol/L [facility] Work Phone: Urea nitrogen [Mass/Vol] 12 mg/dL 6 - 23 mg/dL [facility] Work Phone: [facility] Work Phone: XR Chest Single viewon 07-26 [facility] MM[facility]AL [facility] MM[facility] Work Phone: [facility] Work Phone: Radiology Study observation (narrative) [facility] Work Phone: CBC W Auto Differential pane l (Bld)on 07-26-2023 Basophils (Bld) [#/Vol] 0.03 10*3/uL [facility] Basophils/100 WBC (Bld) 0.3 % 0.0 - 2.0 % [facility] Eosinophils (Bld) [#/Vol] 0.01 10*3/uL [facility] Eosinophils/100 WBC (Bld) 0.1 % 0.0 - 6.0 % [facility] Erythrocyte distribution width (RBC) [Ratio] 13.8 % 11.5 - 14.5 % [facility] Hematocrit (Bld) [Volume fraction] 29.7 % Low 41.0 - 52.0 % [facility] Hemoglobin (Bld) [Mass/Vol] 9.9 g/dL Low 13.5 - 17.5 g/dL [facility] Immature granulocytes (Bld) [#/Vol] 0.07 10*3/uL [facility] Immature granulocytes/100 WBC (Bld) 0.6 % 0.0 - 0.9 % [facility] Interpretation and review of laboratory results Abnormal [facility] Lymphocytes (Bld) [#/Vol] 1.75 10*3/uL [facility] Lymphocytes/100 WBC (Bld) 15.4 % 13.0 - 44.0 % [facility] MCH (RBC) [Entitic mass] 30.4 pg 26.0 - 34.0 pg [facility] MCHC (RBC) [Mass/Vol] 33.3 g/dL 32.0 - 36.0 g/dL [facility] MCV (RBC) [Entitic vol] 91 fL 80 - 100 fL [facility] Monocytes (Bld) [#/Vol] 1.22 10*3/uL High [facility] Monocytes/100 WBC (Bld) 10.7 % 2.0 - 10.0 % [facility] Neutrophils (Bld) [#/Vol] 8.27 10*3/uL High [facility] Neutrophils/100 WBC (Bld) 72.9 % 40.0 - 80.0 % [facility] Nucleated RBC/100 WBC (Bld) [Ratio] 0.0 % [facility] Platelets (Bld) [#/Vol] 160 10*3/uL [facility] RBC (Bld) [#/Vol] 3.26 10*6/uL Low [facility] WBC (Bld) [#/Vol] 11.4 10*3/uL [facility] Calcium, ionizedon Calcium.ionized (Bld) [Moles/Vol] 1.08 mmol/L Low 1.1 - 1.33 mmol/L [facility] Calcium.ionized (Bld) [Moles /Vol]on 07-26-2023 Interpretation and review of laboratory results Abnormal [facility] ECG 12-LEADon 07-26-2023 ECG 12-LEAD Ventricular Rate 88 Atrial Rate 88 P-R Interval 142 QRS Duration 70 Q-T Interval 334 QTC Calculation(Bazett) 404 P Greenleaf 12 R Greenleaf 4 T Greenleaf -16 QRS Count 15 Q Onset 226 P Onset 155 P Offset 208 T Offset 393 QTC Fredericia 379 Diagnosis Normal sinus rhythm Low voltage QRS Inferior infarct (cited on or before 19-JUL-2023) Abnormal ECG When compared with ECG of 25-JUL-2023 15:06, (unconfirmed) No significant change was found Confirmed by Heraclio Benitez ([id number]) on 07/31/2023 11:38:49 AM Normal [facility] Gas and Carbon monoxide and Electrolytes panel (BldA)on 07-26-2023 Anion gap 4 (BldA) [Moles/Vol] 8 Low [facility] Base excess Calc (Bld) [Moles/Vol] -0.3000 mmol/L -2.0 - 3.0 mmol/L [facility] Calcium.ionized (BldA) [Moles/Vol] 1.34 mmol/L High 1.10 - 1.33 mmol/L [facility] Chloride (BldA) [Moles/Vol] 106 mmol/L 98 - 107 mmol/L [facility] CO2 (Bld) [Partial pressure] 45 mm[Hg] High [facility] Glucose [Mass/Vol] 108 mg/dL High 74 - 99 mg/dL [facility] HCO3 (Bld) [Moles/Vol] 25.4 mmol/L 22.0 - 26.0 mmol/L [facility] Hematocrit Est (Bld) [Volume fraction] 32.0 % Low 41.0 - 52.0 % [facility] Hemoglobin (Bld) [Mass/Vol] 10.8 g/dL Low 13.5 - 17.5 g/dL [facility] Interpretation and review of laboratory results Abnormal [facility] Lactate (BldA) [Moles/Vol] 2.0 mmol/L 0.4 - 2.0 mmol/L [facility] Oxygen (Bld) [Partial pressure] 345 mm[Hg] High [facility] Oxyhemoglobin (BldA) [Mass fraction] 97.5 % 94.0 - 98.0 % [facility] pH (Bld) 7.36 [pH] Low 7.38 - 7.42 pH [facility] Potassium (BldA) [Moles/Vol] 4.3 mmol/L 3.5 - 5.3 mmol/L [facility] Sodium (BldA) [Moles/Vol] 135 mmol/L Low 136 - 145 mmol/L [facility] Anion gap 4 (BldA) [Moles/Vol] 10 [facility] Base excess Calc (Bld) [Moles/Vol] -3.8000 mmol/L Low -2.0 - 3.0 mmol/L [facility] Base excess Calc (Bld) [Moles/Vol] 2.3 mmol/L -2.0 - 3.0 mmol/L [facility] Calcium.ionized (BldA) [Moles/Vol] 1.15 mmol/L 1.10 - 1.33 mmol/L [facility] Calcium.ionized (BldA) [Moles/Vol] 1.05 mmol/L Low 1.10 - 1.33 mmol/L [facility] Chloride (BldA) [Moles/Vol] 102 mmol/L 98 - 107 mmol/L [facility] Chloride (BldA) [Moles/Vol] 103 mmol/L 98 - 107 mmol/L [facility] CO2 (Bld) [Partial pressure] 48 mm[Hg] High [facility] CO2 (Bld) [Partial pressure] 39 mm[Hg] [facility] Glucose [Mass/Vol] 251 mg/dL High 74 - 99 mg/dL [facility] Glucose [Mass/Vol] 128 mg/dL High 74 - 99 mg/dL [facility] HCO3 (Bld) [Moles/Vol] 23.1 mmol/L 22.0 - 26.0 mmol/L [facility] HCO3 (Bld) [Moles/Vol] 26.5 mmol/L High 22.0 - 26.0 mmol/L [facility] Hematocrit Est (Bld) [Volume fraction] 40.0 % Low 41.0 - 52.0 % [facility] Hematocrit Est (Bld) [Volume fraction] [facility] Hemoglobin (Bld) [Mass/Vol] 13.3 g/dL Low 13.5 - 17.5 g/dL [facility] Hemoglobin (Bld) [Mass/Vol] [facility] Lactate (BldA) [Moles/Vol] 1.2 mmol/L 0.4 - 2.0 mmol/L [facility] Lactate (BldA) [Moles/Vol] 1.8 mmol/L 0.4 - 2.0 mmol/L [facility] Oxygen (Bld) [Partial pressure] 384 mm[Hg] High [facility] Oxygen (Bld) [Partial pressure] 395 mm[Hg] High [facility] Oxyhemoglobin (BldA) [Mass fraction] 97.6 % 94.0 - 98.0 % [facility] Oxyhemoglobin (BldA) [Mass fraction] [facility] pH (Bld) 7.29 [pH] Low 7.38 - 7.42 pH [facility] pH (Bld) 7.44 [pH] High 7.38 - 7.42 pH [facility] Potassium (BldA) [Moles/Vol] 4.8 mmol/L 3.5 - 5.3 mmol/L [facility] Sodium (BldA) [Moles/Vol] 129 mmol/L Low 136 - 145 mmol/L [facility] Anion gap 4 (BldA) [Moles/Vol] 7 Low [facility] Base excess Calc (Bld) [Moles/Vol] -0.2000 mmol/L -2.0 - 3.0 mmol/L [facility] Calcium.ionized (BldA) [Moles/Vol] 1.15 mmol/L 1.10 - 1.33 mmol/L [facility] Chloride (BldA) [Moles/Vol] 107 mmol/L 98 - 107 mmol/L [facility] CO2 (Bld) [Partial pressure] 41 mm[Hg] [facility] Glucose [Mass/Vol] 116 mg/dL High 74 - 99 mg/dL [facility] HCO3 (Bld) [Moles/Vol] 24.8 mmol/L 22.0 - 26.0 mmol/L [facility] Hematocrit Est (Bld) [Volume fraction] 43.0 % 41.0 - 52.0 % [facility] Hemoglobin (Bld) [Mass/Vol] 14.4 g/dL 13.5 - 17.5 g/dL [facility] Inhaled oxygen concentration 100 % [facility] Interpretation and review of laboratory results Abnormal [facility] Lactate (BldA) [Moles/Vol] 1.1 mmol/L 0.4 - 2.0 mmol/L [facility] Oxygen (Bld) [Partial pressure] 477 mm[Hg] High [facility] Oxyhemoglobin (BldA) [Mass fraction] 97.7 % 94.0 - 98.0 % [facility] pH (Bld) 7.39 [pH] 7.38 - 7.42 pH [facility] Potassium (BldA) [Moles/Vol] 3.9 mmol/L 3.5 - 5.3 mmol/L [facility] Sodium (BldA) [Moles/Vol] 135 mmol/L Low 136 - 145 mmol/L [facility] Glucose Test strip manual (B ld) [Mass/Vol]on 07-26-2023 Glucose [Mass/Vol] 167 mg/dL High 74 - 99 mg/dL [facility] Interpretation and review of laboratory results Abnormal [facility] Glucose [Mass/Vol] 116 mg/dL High 74 - 99 mg/dL [facility] Interpretation and review of laboratory results Abnormal [facility] Glucose [Mass/Vol] 111 mg/dL High 74 - 99 mg/dL [facility] Interpretation and review of laboratory results Abnormal [facility] Glucose [Mass/Vol] 143 mg/dL High 74 - 99 mg/dL [facility] Interpretation and review of laboratory results Abnormal [facility] Glucose [Mass/Vol] 118 mg/dL High 74 - 99 mg/dL [facility] Interpretation and review of laboratory results Abnormal [facility] Glucose [Mass/Vol] 123 mg/dL High 74 - 99 mg/dL [facility] Interpretation and review of laboratory results Abnormal [facility] Magnesiumon 07-26-2023 Magnesium [Mass/Vol] 2.10 mg/dL 1.60 - 2.40 mg/dL [facility] Magnesium [Mass/Vol]on 07-25 Interpretation and review of laboratory results Normal [facility] No Panel Informationon 07-25 [facility] Renal function 2000 panelon 07-26-2023 Albumin BCP dye [Mass/Vol] 3.6 g/dL 3.4 - 5.0 g/dL [facility] Anion gap [Moles/Vol] 11 mmol/L 10 - 20 mmol/L [facility] Calcium [Mass/Vol] 8.1 mg/dL Low 8.6 - 10. 3 mg/dL [facility] Chloride [Moles/Vol] 105 mmol/L 98 - 10 7 mmol/L [facility] CO2 [Moles/Vol] 26 mmol/L 21 - 32 mmol/L [facility] Creatinine [Mass/Vol] 1.13 mg/dL 0.50 - 1.30 mg/dL [facility] GFR/1.73 sq M.predicted among non-blacks MDRD (S/P/Bld) [Vol rate/Area] 74 mL/min/{1.73_m2} - PINF [facility] Glucose [Mass/Vol] 117 mg/dL High 74 - 99 mg/dL [facility] Interpretation and review of laboratory results Abnormal [facility] Phosphate [Mass/Vol] 3.0 mg/dL 2.5 - 4 .9 mg/dL [facility] Potassium [Moles/Vol] 4.7 mmol/L 3.5 - 5.3 mmol/L [facility] Sodium [Moles/Vol] 137 mmol/L 136 - 145 mmol/L [facility] Urea nitrogen [Mass/Vol] 14 mg/dL 6 - 23 mg/dL [facility] XR Chest Single viewon 07-25 [facility] Work Phone: Radiology Study observation (narrative) [facility] Work Phone: [facility] Work Phone: [facility] Work Phone: Radiology Study observation (narrative) [facility] Work Phone: XR Chest Single viewOrdered By: Isaiah Cross on 07-26-2023 [facility] Work Phone: ACT Coag (Bld)on 07-25-2023 Interpretation and review of laboratory results Normal [facility] Interpretation and review of laboratory results Abnormal [facility] Interpretation and review of laboratory results Abnormal [facility] Interpretation and review of laboratory results Normal [facility] Anesthesia Intraoperative Tr ansesophageal Echocardiogramon 07-25-2023 LV A4C EF 65.6 [facility] Work Phone: LV biplane EF 68 % [facility] Work Phone: MV E/A ratio 1.09 [facility] Work Phone: RVSP 37.8 mmHg [facility] Work Phone: SYNGO [facility] Work Phone: [facility] Work Phone: CBC W Auto Differential pane l (Bld)on 07-25-2023 Basophils (Bld) [#/Vol] 0.04 10*3/uL [facility] Basophils/100 WBC (Bld) 0.4 % 0.0 - 2.0 % [facility] Eosinophils (Bld) [#/Vol] 0.13 10*3/uL [facility] Eosinophils/100 WBC (Bld) 1.4 % 0.0 - 6.0 % [facility] Erythrocyte distribution width (RBC) [Ratio] 13.3 % 11.5 - 14.5 % [facility] Hematocrit (Bld) [Volume fraction] 44.3 % 41.0 - 52.0 % [facility] Hemoglobin (Bld) [Mass/Vol] 15.1 g/dL 13.5 - 17.5 g/dL [facility] Immature granulocytes (Bld) [#/Vol] 0.10 10*3/uL [facility] Immature granulocytes/100 WBC (Bld) 1.1 % High 0.0 - 0.9 % [facility] Interpretation and review of laboratory results Abnormal [facility] Lymphocytes (Bld) [#/Vol] 3.35 10*3/uL [facility] Lymphocytes/100 WBC (Bld) 35.2 % 13.0 - 44.0 % [facility] MCH (RBC) [Entitic mass] 30.3 pg 26.0 - 34.0 pg [facility] MCHC (RBC) [Mass/Vol] 34.1 g/dL 32.0 - 36.0 g/dL [facility] MCV (RBC) [Entitic vol] 89 fL 80 - 100 fL [facility] Monocytes (Bld) [#/Vol] 0.89 10*3/uL [facility] Monocytes/100 WBC (Bld) 9.3 % 2.0 - 10.0 % [facility] Neutrophils (Bld) [#/Vol] 5.01 10*3/uL [facility] Neutrophils/100 WBC (Bld) 52.6 % 40.0 - 80.0 % [facility] Nucleated RBC/100 WBC (Bld) [Ratio] 0.0 % [facility] Platelets (Bld) [#/Vol] 228 10*3/uL [facility] RBC (Bld) [#/Vol] 4.99 10*6/uL [facility] WBC (Bld) [#/Vol] 9.5 10*3/uL [facility] CBC panel Auto (Bld)on 07-24 Erythrocyte distribution width (RBC) [Ratio] 13.3 % 11.5 - 14.5 % [facility] Hematocrit (Bld) [Volume fraction] 29.2 % Low 41.0 - 52.0 % [facility] Hemoglobin (Bld) [Mass/Vol] 10.0 g/dL Low 13.5 - 17.5 g/dL [facility] Interpretation and review of laboratory results Abnormal [facility] MCH (RBC) [Entitic mass] 30.9 pg 26.0 - 34.0 pg [facility] MCHC (RBC) [Mass/Vol] 34.2 g/dL 32.0 - 36.0 g/dL [facility] MCV (RBC) [Entitic vol] 90 fL 80 - 100 fL [facility] Nucleated RBC/100 WBC (Bld) [Ratio] 0.0 % [facility] Platelets (Bld) [#/Vol] 161 10*3/uL [facility] RBC (Bld) [#/Vol] 3.24 10*6/uL Low [facility] WBC (Bld) [#/Vol] 13.0 10*3/uL [facility] Erythrocyte distribution width (RBC) [Ratio] 13.2 % 11.5 - 14.5 % [facility] Hematocrit (Bld) [Volume fraction] 36.4 % Low 41.0 - 52.0 % [facility] Hemoglobin (Bld) [Mass/Vol] 12.4 g/dL Low 13.5 - 17.5 g/dL [facility] Interpretation and review of laboratory results Abnormal [facility] MCH (RBC) [Entitic mass] 30.4 pg 26.0 - 34.0 pg [facility] MCHC (RBC) [Mass/Vol] 34.1 g/dL 32.0 - 36.0 g/dL [facility] MCV (RBC) [Entitic vol] 89 fL 80 - 100 fL [facility] Nucleated RBC/100 WBC (Bld) [Ratio] 0.0 % [facility] Platelets (Bld) [#/Vol] 187 10*3/uL [facility] RBC (Bld) [#/Vol] 4.08 10*6/uL [facility] WBC (Bld) [#/Vol] 17.4 10*3/uL [facility] Calcium, Ionizedon 4 Calcium.ionized (Bld) [Moles/Vol] 1.11 mmol/L 1.1 - 1.33 mmol/L [facility] Calcium.ionized (Bld) [Moles/Vol] 1.18 mmol/L 1.1 - 1.33 mmol/L [facility] Calcium.ionized (Bld) [Moles /Vol]on 07-25-2023 Interpretation and review of laboratory results Normal [facility] Interpretation and review of laboratory results Normal [facility] Comprehensive metabolic 2000 panelon 07-25-2023 Albumin BCP dye [Mass/Vol] 3.9 g/dL 3.4 - 5.0 g/dL [facility] ALP [Catalytic activity/Vol] 70 U/L 33 - 136 U/L [facility] ALT With P-5'-P [Catalytic activity/Vol] 73 U/L High 10 - 52 U/L [facility] Anion gap [Moles/Vol] 13 mmol/L 10 - 20 mmol/L [facility] AST With P-5'-P [Catalytic activity/Vol] 54 U/L High 9 - 39 U/L [facility] Bilirubin [Mass/Vol] 0.6 mg/dL 0.0 - 1 .2 mg/dL [facility] Calcium [Mass/Vol] 9.1 mg/dL 8.6 - 10. 3 mg/dL [facility] Chloride [Moles/Vol] 105 mmol/L 98 - 10 7 mmol/L [facility] CO2 [Moles/Vol] 23 mmol/L 21 - 32 mmol/L [facility] Creatinine [Mass/Vol] 1.16 mg/dL 0.50 - 1.30 mg/dL [facility] GFR/1.73 sq M.predicted among non-blacks MDRD (S/P/Bld) [Vol rate/Area] 72 mL/min/{1.73_m2} - PINF [facility] Glucose [Mass/Vol] 95 mg/dL 74 - 99 mg/dL [facility] Interpretation and review of laboratory results Abnormal [facility] Potassium [Moles/Vol] 4.1 mmol/L 3.5 - 5.3 mmol/L [facility] Protein [Mass/Vol] 7.0 g/dL 6.4 - 8.2 g/dL [facility] Sodium [Moles/Vol] 137 mmol/L 136 - 145 mmol/L [facility] Urea nitrogen [Mass/Vol] 22 mg/dL 6 - 23 mg/dL [facility] ECG 12-LEADon 07-25-2023 ECG 12-LEAD Ventricular Rate 77 Atrial Rate 77 P-R Interval 168 QRS Duration 90 Q-T Interval 370 QTC Calculation(Bazett) 418 P Greenleaf 49 R Greenleaf 26 T Greenleaf -24 QRS Count 12 Q Onset 217 P Onset 133 P Offset 187 T Offset 402 QTC Fredericia 402 Diagnosis Normal sinus rhythm Inferior infarct (cited on or before 19-JUL-2023) Abnormal ECG When compared with ECG of 24-JUL-2023 12:44, No significant change was found Confirmed by Heraclio Benitez ([id number]) on 07/31/2023 11:24:28 AM Normal [facility] Fibrinogenon 07-25-2023 Fibrinogen Coag (PPP) [Mass/Vol] 313 mg/dL 200 - 400 mg/dL [facility] Fibrinogen Coag (PPP) [Mass/ Vol]on 07-25-2023 Interpretation and review of laboratory results Normal [facility] Gas and Carbon monoxide and Electrolytes panel (BldA)on 07-25-2023 Anion gap 4 (BldA) [Moles/Vol] 7 Low [facility] Base excess Calc (Bld) [Moles/Vol] 1.9 mmol/L -2.0 - 3.0 mmol/L [facility] Calcium.ionized (BldA) [Moles/Vol] 1.15 mmol/L 1.10 - 1.33 mmol/L [facility] Chloride (BldA) [Moles/Vol] 105 mmol/L 98 - 107 mmol/L [facility] CO2 (Bld) [Partial pressure] 41 mm[Hg] [facility] Glucose [Mass/Vol] 202 mg/dL High 74 - 99 mg/dL [facility] HCO3 (Bld) [Moles/Vol] 26.6 mmol/L High 22.0 - 26.0 mmol/L [facility] Hematocrit Est (Bld) [Volume fraction] 35.0 % Low 41.0 - 52.0 % [facility] Hemoglobin (Bld) [Mass/Vol] 11.5 g/dL Low 13.5 - 17.5 g/dL [facility] Inhaled oxygen concentration 28 % [facility] Interpretation and review of laboratory results Abnormal [facility] Lactate (BldA) [Moles/Vol] 1.6 mmol/L 0.4 - 2.0 mmol/L [facility] Oxygen (Bld) [Partial pressure] 131 mm[Hg] High [facility] Oxyhemoglobin (BldA) [Mass fraction] 96.6 % 94.0 - 98.0 % [facility] pH (Bld) 7.42 [pH] 7.38 - 7.42 pH [facility] Potassium (BldA) [Moles/Vol] 4.1 mmol/L 3.5 - 5.3 mmol/L [facility] Sodium (BldA) [Moles/Vol] 134 mmol/L Low 136 - 145 mmol/L [facility] Anion gap 4 (BldA) [Moles/Vol] 11 [facility] Base excess Calc (Bld) [Moles/Vol] -2.1000 mmol/L Low -2.0 - 3.0 mmol/L [facility] Calcium.ionized (BldA) [Moles/Vol] 1.10 mmol/L 1.10 - 1.33 mmol/L [facility] Chloride (BldA) [Moles/Vol] 104 mmol/L 98 - 107 mmol/L [facility] CO2 (Bld) [Partial pressure] 44 mm[Hg] [facility] Glucose [Mass/Vol] 137 mg/dL High 74 - 99 mg/dL [facility] HCO3 (Bld) [Moles/Vol] 23.7 mmol/L 22.0 - 26.0 mmol/L [facility] Hematocrit Est (Bld) [Volume fraction] 34.0 % Low 41.0 - 52.0 % [facility] Hemoglobin (Bld) [Mass/Vol] 11.3 g/dL Low 13.5 - 17.5 g/dL [facility] Inhaled oxygen concentration 90 % [facility] Interpretation and review of laboratory results Abnormal [facility] Lactate (BldA) [Moles/Vol] 1.8 mmol/L 0.4 - 2.0 mmol/L [facility] Oxygen (Bld) [Partial pressure] 333 mm[Hg] High [facility] Oxyhemoglobin (BldA) [Mass fraction] 97.6 % 94.0 - 98.0 % [facility] pH (Bld) 7.34 [pH] Low 7.38 - 7.42 pH [facility] Potassium (BldA) [Moles/Vol] 5.4 mmol/L High 3.5 - 5.3 mmol/L [facility] Sodium (BldA) [Moles/Vol] 133 mmol/L Low 136 - 145 mmol/L [facility] Anion gap 4 (BldA) [Moles/Vol] 9 Low [facility] Base excess Calc (Bld) [Moles/Vol] -0.7000 mmol/L -2.0 - 3.0 mmol/L [facility] Calcium.ionized (BldA) [Moles/Vol] 1.05 mmol/L Low 1.10 - 1.33 mmol/L [facility] Chloride (BldA) [Moles/Vol] 104 mmol/L 98 - 107 mmol/L [facility] CO2 (Bld) [Partial pressure] 44 mm[Hg] High [facility] Glucose [Mass/Vol] 142 mg/dL High 74 - 99 mg/dL [facility] HCO3 (Bld) [Moles/Vol] 24.9 mmol/L 22.0 - 26.0 mmol/L [facility] Hematocrit Est (Bld) [Volume fraction] 34.0 % Low 41.0 - 52.0 % [facility] Hemoglobin (Bld) [Mass/Vol] 11.2 g/dL Low 13.5 - 17.5 g/dL [facility] Inhaled oxygen concentration 80 % [facility] Interpretation and review of laboratory results Abnormal [facility] Lactate (BldA) [Moles/Vol] 1.8 mmol/L 0.4 - 2.0 mmol/L [facility] Oxygen (Bld) [Partial pressure] 312 mm[Hg] High [facility] Oxyhemoglobin (BldA) [Mass fraction] 97.6 % 94.0 - 98.0 % [facility] pH (Bld) 7.36 [pH] Low 7.38 - 7.42 pH [facility] Potassium (BldA) [Moles/Vol] 5.4 mmol/L High 3.5 - 5.3 mmol/L [facility] Sodium (BldA) [Moles/Vol] 132 mmol/L Low 136 - 145 mmol/L [facility] Anion gap 4 (BldA) [Moles/Vol] 9 Low [facility] Base excess Calc (Bld) [Moles/Vol] 0.2 mmol/L -2.0 - 3.0 mmol/L [facility] Calcium.ionized (BldA) [Moles/Vol] 1.08 mmol/L Low 1.10 - 1.33 mmol/L [facility] Chloride (BldA) [Moles/Vol] 103 mmol/L 98 - 107 mmol/L [facility] CO2 (Bld) [Partial pressure] 46 mm[Hg] High [facility] Glucose [Mass/Vol] 142 mg/dL High 74 - 99 mg/dL [facility] HCO3 (Bld) [Moles/Vol] 26.0 mmol/L 22.0 - 26.0 mmol/L [facility] Hematocrit Est (Bld) [Volume fraction] 34.0 % Low 41.0 - 52.0 % [facility] Hemoglobin (Bld) [Mass/Vol] 11.3 g/dL Low 13.5 - 17.5 g/dL [facility] Inhaled oxygen concentration 80 % [facility] Interpretation and review of laboratory results Abnormal [facility] Lactate (BldA) [Moles/Vol] 1.6 mmol/L 0.4 - 2.0 mmol/L [facility] Oxygen (Bld) [Partial pressure] 397 mm[Hg] High [facility] Oxyhemoglobin (BldA) [Mass fraction] 97.6 % 94.0 - 98.0 % [facility] pH (Bld) 7.36 [pH] Low 7.38 - 7.42 pH [facility] Potassium (BldA) [Moles/Vol] 5.3 mmol/L 3.5 - 5.3 mmol/L [facility] Sodium (BldA) [Moles/Vol] 133 mmol/L Low 136 - 145 mmol/L [facility] Anion gap 4 (BldA) [Moles/Vol] 10 [facility] Base excess Calc (Bld) [Moles/Vol] -2.2000 mmol/L Low -2.0 - 3.0 mmol/L [facility] Calcium.ionized (BldA) [Moles/Vol] 1.08 mmol/L Low 1.10 - 1.33 mmol/L [facility] Chloride (BldA) [Moles/Vol] 103 mmol/L 98 - 107 mmol/L [facility] CO2 (Bld) [Partial pressure] 41 mm[Hg] [facility] Glucose [Mass/Vol] 173 mg/dL High 74 - 99 mg/dL [facility] HCO3 (Bld) [Moles/Vol] 23.2 mmol/L 22.0 - 26.0 mmol/L [facility] Hematocrit Est (Bld) [Volume fraction] 34.0 % Low 41.0 - 52.0 % [facility] Hemoglobin (Bld) [Mass/Vol] 11.4 g/dL Low 13.5 - 17.5 g/dL [facility] Inhaled oxygen concentration 100 % [facility] Interpretation and review of laboratory results Abnormal [facility] Lactate (BldA) [Moles/Vol] 1.5 mmol/L 0.4 - 2.0 mmol/L [facility] Oxygen (Bld) [Partial pressure] 488 mm[Hg] High [facility] Oxyhemoglobin (BldA) [Mass fraction] 97.6 % 94.0 - 98.0 % [facility] pH (Bld) 7.36 [pH] Low 7.38 - 7.42 pH [facility] Potassium (BldA) [Moles/Vol] 5.4 mmol/L High 3.5 - 5.3 mmol/L [facility] Sodium (BldA) [Moles/Vol] 131 mmol/L Low 136 - 145 mmol/L [facility] Gas panel (BldA)on 4 Base excess Calc (Bld) [Moles/Vol] 0.3 mmol/L -2.0 - 3.0 mmol/L [facility] CO2 (Bld) [Partial pressure] 45 mm[Hg] High [facility] HCO3 (Bld) [Moles/Vol] 26.0 mmol/L 22.0 - 26.0 mmol/L [facility] Inhaled oxygen concentration 60 % [facility] Interpretation and review of laboratory results Abnormal [facility] Oxygen (Bld) [Partial pressure] 182 mm[Hg] High [facility] Oxyhemoglobin (BldA) [Mass fraction] 98.2 % High 94.0 - 98.0 % [facility] Peep CHM2O 5.0 cm H2O [facility] pH (Bld) 7.37 [pH] Low 7.38 - 7.42 pH [facility] Specimen drawn from Nom Arterial Line [facility] Tidal Volume 500 mL [facility] Ventilator Mode A/C [facility] Ventilator Rate 12 bpm [facility] Gas panel (BldV)on Anion gap 4 (BldV) [Moles/Vol] 11.0 mmol/L 10.0 - 25.0 mmol/L [facility] Base excess Calc (BldV) [Moles/Vol] -1.8000 mmol/L -2.0 - 3.0 mmol/L [facility] Calcium.ionized (BldV) [Moles/Vol] 1.09 mmol/L Low 1.10 - 1.33 mmol/L [facility] Chloride (BldV) [Moles/Vol] 102 mmol/L 98 - 107 mmol/L [facility] CO2 (BldV) [Partial pressure] 46 mm[Hg] [facility] Glucose [Mass/Vol] 160 mg/dL High 74 - 99 mg/dL [facility] HCO3 (Bld) [Moles/Vol] 24.3 mmol/L 22.0 - 26.0 mmol/L [facility] Hematocrit Est (Bld) [Volume fraction] 34.0 % Low 41.0 - 52.0 % [facility] Hemoglobin (Bld) [Mass/Vol] 11.4 g/dL Low 13.5 - 17.5 g/dL [facility] Inhaled oxygen concentration 90 % [facility] Interpretation and review of laboratory results Abnormal [facility] Lactate (BldV) [Moles/Vol] 1.5 mmol/L 0.4 - 2.0 mmol/L [facility] Oxygen (BldV) [Partial pressure] 65 mm[Hg] High [facility] Oxygen saturation in Venous blood 95 % High 45 - 75 % [facility] Oxyhemoglobin (BldV) [Mass fraction] 92.4 % High 45.0 - 75.0 % [facility] pH (BldV) 7.33 [pH] 7.33 - 7.43 pH [facility] Potassium (BldV) [Moles/Vol] 5.5 mmol/L High 3.5 - 5.3 mmol/L [facility] Sodium (BldV) [Moles/Vol] 132 mmol/L Low 136 - 145 mmol/L [facility] Anion gap 4 (BldV) [Moles/Vol] 10.0 mmol/L 10.0 - 25.0 mmol/L [facility] Base excess Calc (BldV) [Moles/Vol] -1.1000 mmol/L -2.0 - 3.0 mmol/L [facility] Calcium.ionized (BldV) [Moles/Vol] 1.19 mmol/L 1.10 - 1.33 mmol/L [facility] Chloride (BldV) [Moles/Vol] 103 mmol/L 98 - 107 mmol/L [facility] CO2 (BldV) [Partial pressure] 48 mm[Hg] [facility] Glucose [Mass/Vol] 133 mg/dL High 74 - 99 mg/dL [facility] HCO3 (Bld) [Moles/Vol] 25.3 mmol/L 22.0 - 26.0 mmol/L [facility] Hematocrit Est (Bld) [Volume fraction] 41.0 % 41.0 - 52.0 % [facility] Hemoglobin (Bld) [Mass/Vol] 13.8 g/dL 13.5 - 17.5 g/dL [facility] Inhaled oxygen concentration 100 % [facility] Interpretation and review of laboratory results Abnormal [facility] Lactate (BldV) [Moles/Vol] 1.0 mmol/L 0.4 - 2.0 mmol/L [facility] Oxygen (BldV) [Partial pressure] 56 mm[Hg] High [facility] Oxygen saturation in Venous blood 88 % High 45 - 75 % [facility] Oxyhemoglobin (BldV) [Mass fraction] 85.2 % High 45.0 - 75.0 % [facility] pH (BldV) 7.33 [pH] 7.33 - 7.43 pH [facility] Potassium (BldV) [Moles/Vol] 4.2 mmol/L 3.5 - 5.3 mmol/L [facility] Sodium (BldV) [Moles/Vol] 134 mmol/L Low 136 - 145 mmol/L [facility] Glucose Test strip manual (B ld) [Mass/Vol]on 07-25-2023 Glucose [Mass/Vol] 181 mg/dL High 74 - 99 mg/dL [facility] Interpretation and review of laboratory results Abnormal [facility] Glucose [Mass/Vol] 106 mg/dL High 74 - 99 mg/dL [facility] Interpretation and review of laboratory results Abnormal [facility] Glucose [Mass/Vol] 108 mg/dL High 74 - 99 mg/dL [facility] Interpretation and review of laboratory results Abnormal [facility] Laboratory - Coagulationon 0 07-25-2023 ACT Coag (Bld) 103 s [facility] Comment on above: Target ACT range licha l vary based on the patient population, clinical status, and surgical intervention occurring. ACT Coag (Bld) 578 s [facility] Comment on above: Target ACT range licha l vary based on the patient population, clinical status, and surgical intervention occurring. ACT Coag (Bld) 472 s [facility] Comment on above: Target ACT range licha l vary based on the patient population, clinical status, and surgical intervention occurring. ACT Coag (Bld) 465 s [facility] Comment on above: Target ACT range licha l vary based on the patient population, clinical status, and surgical intervention occurring. ACT Coag (Bld) 435 s [facility] Comment on above: Target ACT range licha l vary based on the patient population, clinical status, and surgical intervention occurring. ACT Coag (Bld) 434 s [facility] Comment on above: Target ACT range licha l vary based on the patient population, clinical status, and surgical intervention occurring. ACT Coag (Bld) 422 s [facility] Comment on above: Target ACT range licha l vary based on the patient population, clinical status, and surgical intervention occurring. ACT Coag (Bld) 102 s [facility] Comment on above: Target ACT range licha l vary based on the patient population, clinical status, and surgical intervention occurring. Lactateon 07-25-2023 Lactate [Moles/Vol] 1.6 mmol/L 0.4 - 2. 0 mmol/L [facility] Lactate [Moles/Vol] 1.7 mmol/L 0.4 - 2. 0 mmol/L [facility] Lactate [Moles/Vol]on 2023 Interpretation and review of laboratory results Normal [facility] Interpretation and review of laboratory results Normal [facility] Magnesiumon 07-25-2023 Magnesium [Mass/Vol] 2.39 mg/dL 1.60 - 2.40 mg/dL [facility] Magnesium [Mass/Vol] 2.94 mg/dL High 1.60 - 2.40 mg/dL [facility] Magnesium [Mass/Vol]on 07-24 Interpretation and review of laboratory results Normal [facility] No Panel Informationon 07-24 [facility] Interpretation and review of laboratory results Abnormal [facility] PT and aPTT panel Coag (PPP) on 07-25-2023 aPTT Coag (PPP) [Time] 32 s [facility] INR Coag (PPP) [Relative time] 1.2 {INR} High 0.9 - 1.1 [facility] Interpretation and review of laboratory results Abnormal [facility] PT Coag (PPP) [Time] 13.8 s [facility] aPTT Coag (PPP) [Time] 52 s [facility] INR Coag (PPP) [Relative time] 1.1 {INR} 0.9 - 1.1 [facility] Interpretation and review of laboratory results Abnormal [facility] PT Coag (PPP) [Time] 12.[address] [facility] Renal function 2000 panelon 07-25-2023 Albumin BCP dye [Mass/Vol] 3.7 g/dL 3.4 - 5.0 g/dL [facility] Anion gap [Moles/Vol] 11 mmol/L 10 - 20 mmol/L [facility] Calcium [Mass/Vol] 8.0 mg/dL Low 8.6 - 10. 3 mg/dL [facility] Chloride [Moles/Vol] 106 mmol/L 98 - 10 7 mmol/L [facility] CO2 [Moles/Vol] 24 mmol/L 21 - 32 mmol/L [facility] Creatinine [Mass/Vol] 1.11 mg/dL 0.50 - 1.30 mg/dL [facility] GFR/1.73 sq M.predicted among non-blacks MDRD (S/P/Bld) [Vol rate/Area] 76 mL/min/{1.73_m2} - PINF [facility] Glucose [Mass/Vol] 199 mg/dL High 74 - 99 mg/dL [facility] Interpretation and review of laboratory results Abnormal [facility] Phosphate [Mass/Vol] 2.6 mg/dL 2.5 - 4 .9 mg/dL [facility] Potassium [Moles/Vol] 4.1 mmol/L 3.5 - 5.3 mmol/L [facility] Sodium [Moles/Vol] 137 mmol/L 136 - 145 mmol/L [facility] Urea nitrogen [Mass/Vol] 15 mg/dL 6 - 23 mg/dL [facility] Albumin BCP dye [Mass/Vol] 3.3 g/dL Low 3.4 - 5.0 g/dL [facility] Anion gap [Moles/Vol] 10 mmol/L 10 - 20 mmol/L [facility] Calcium [Mass/Vol] 8.4 mg/dL Low 8.6 - 10. 3 mg/dL [facility] Chloride [Moles/Vol] 108 mmol/L High 98 - 10 7 mmol/L [facility] CO2 [Moles/Vol] 26 mmol/L 21 - 32 mmol/L [facility] Creatinine [Mass/Vol] 1.04 mg/dL 0.50 - 1.30 mg/dL [facility] GFR/1.73 sq M.predicted among non-blacks MDRD (S/P/Bld) [Vol rate/Area] 82 mL/min/{1.73_m2} - PINF [facility] Glucose [Mass/Vol] 104 mg/dL High 74 - 99 mg/dL [facility] Phosphate [Mass/Vol] 3.6 mg/dL 2.5 - 4 .9 mg/dL [facility] Potassium [Moles/Vol] 4.7 mmol/L 3.5 - 5.3 mmol/L [facility] Sodium [Moles/Vol] 139 mmol/L 136 - 145 mmol/L [facility] Urea nitrogen [Mass/Vol] 16 mg/dL 6 - 23 mg/dL [facility] SST TOPon 07-25-2023 Extra Tube Hold for add-ons. [facility] XR Chest Single viewon 07-24 UH MMODAL UH ODAL [facility] Work Phone: Radiology Study observation (narrative) [facility] Work Phone: UH MMODAL UH MMODAL [facility] Work Phone: Radiology Study observation (narrative) [facility] Work Phone: XR Chest Single viewOrdered By: Janet Pate on 07-25-2023 [facility] Work Phone: XR Chest Single viewOrdered By: Bjorn Sandoval on 07-25-2023 [facility] Work Phone: Basic metabolic 2000 panelon 07-24-2023 Anion gap [Moles/Vol] 13 mmol/L 10 - 20 mmol/L [facility] Calcium [Mass/Vol] 9.2 mg/dL 8.6 - 10. 3 mg/dL [facility] Chloride [Moles/Vol] 105 mmol/L 98 - 10 7 mmol/L [facility] CO2 [Moles/Vol] 22 mmol/L 21 - 32 mmol/L [facility] Creatinine [Mass/Vol] 1.20 mg/dL 0.50 - 1.30 mg/dL [facility] GFR/1.73 sq M.predicted among non-blacks MDRD (S/P/Bld) [Vol rate/Area] 69 mL/min/{1.73_m2} - PINF [facility] Glucose [Mass/Vol] 98 mg/dL 74 - 99 mg/dL [facility] Potassium [Moles/Vol] 4.0 mmol/L 3.5 - 5.3 mmol/L [facility] Sodium [Moles/Vol] 136 mmol/L 136 - 145 mmol/L [facility] Urea nitrogen [Mass/Vol] 22 mg/dL 6 - 23 mg/dL [facility] Blood type and Indirect anti body screen panel (Bld)on 07-24-2023 ABO group Nom (Bld) A [facility] Blood group antibody screen Ql Negative [facility] D Ag Ql (Bld) Positive [facility] CBC panel Auto (Bld)on 07-23 Erythrocyte distribution width (RBC) [Ratio] 13.1 % 11.5 - 14.5 % [facility] Hematocrit (Bld) [Volume fraction] 45.3 % 41.0 - 52.0 % [facility] Hemoglobin (Bld) [Mass/Vol] 15.5 g/dL 13.5 - 17.5 g/dL [facility] Interpretation and review of laboratory results Normal [facility] MCH (RBC) [Entitic mass] 30.5 pg 26.0 - 34.0 pg [facility] MCHC (RBC) [Mass/Vol] 34.2 g/dL 32.0 - 36.0 g/dL [facility] MCV (RBC) [Entitic vol] 89 fL 80 - 100 fL [facility] Nucleated RBC/100 WBC (Bld) [Ratio] 0.0 % [facility] Platelets (Bld) [#/Vol] 234 10*3/uL [facility] RBC (Bld) [#/Vol] 5.08 10*6/uL [facility] WBC (Bld) [#/Vol] 9.7 10*3/uL [facility] ECG 12 LeadOrdered By: Ja Moreland on 07-24-2023 Atrial Rate 67 BPM [facility] Work Phone: [phone] P Greenleaf 31 degrees [facility] Work Phone: [phone] P Offset 200 ms [facility] Work Phone: [phone] P Onset 146 ms [facility] Work Phone: [phone] UT Interval 152 ms [facility] Work Phone: [phone] Q Onset 222 ms [facility] Work Phone: [phone] QRS Count 11 beats [facility] Work Phone: [phone] QRS Duration 82 ms [facility] Work Phone: [phone] QT Interval 360 ms [facility] Work Phone: [phone] QTC Calculation(Bazett) 380 ms [facility] Work Phone: [phone] QTC Fredericia 373 ms [facility] Work Phone: [phone] R Greenleaf 19 degrees [facility] Work Phone: [phone] T Greenleaf -25 degrees [facility] Work Phone: [phone] T Offset 402 ms [facility] Work Phone: [phone] Ventricular Rate 67 BPM [facility] Work Phone: [phone] [facility] Work Phone: [phone] ECG 12 Leadon 07-24-2023 MUSE [facility] Work Phone: ECG 12-LEADon 07-24-2023 ECG 12-LEAD Ventricular Rate 67 Atrial Rate 67 P-R Interval 142 QRS Duration 92 Q-T Interval 376 QTC Calculation(Bazett) 397 P Greenleaf 29 R Greenleaf 44 T Greenleaf -47 QRS Count 11 Q Onset 214 P Onset 143 P Offset 195 T Offset 402 QTC Fredericia 390 Diagnosis Normal sinus rhythm Possible Inferior infarct (cited on or before 19-JUL-2023) Abnormal ECG When compared with ECG of 23-JUL-2023 06:42, No significant change was found Confirmed by Nadir Moreland ([id number]) on 07/24/2023 9:28:45 PM Normal [facility] Electrocardiogram, 12-leadon 07-24-2023 Atrial Rate 67 BPM [facility] Work Phone: [phone] P Greenleaf 29 degrees [facility] Work Phone: [phone] P Offset 195 ms [facility] Work Phone: [phone] P Onset [address] [facility] Work Phone: [phone] UT Interval [address] [facility] Work Phone: [phone] Q Onset 214 ms [facility] Work Phone: [phone] QRS Count 11 beats [facility] Work Phone: [phone] QRS Duration 92 ms [facility] Work Phone: [phone] QT Interval 376 ms [facility] Work Phone: [phone] QTC Calculation(Bazett) 397 ms [facility] Work Phone: [phone] QTC Fredericia 390 ms [facility] Work Phone: [phone] R Greenleaf 44 degrees [facility] Work Phone: [phone] T Greenleaf -47 degrees [facility] Work Phone: [phone] T Offset 402 ms [facility] Work Phone: [phone] Ventricular Rate 67 BPM [facility] Work Phone: [phone] MUSE [facility] Work Phone: [phone] [facility] Work Phone: Heparin Assayon 07-24-2023 Heparin unfractionated Chromogenic method Qn (PPP) 0.5 See Comment Below for Therapeutic Ranges IU/mL [facility] Heparin unfractionated Chrom ogenic method Qn (PPP)on 07-24-2023 Interpretation and review of laboratory results Normal [facility] Magnesiumon 07-24-2023 Magnesium [Mass/Vol] 2.06 mg/dL 1.60 - 2.40 mg/dL [facility] No Panel Informationon 07-23 Interpretation and review of laboratory results Normal [facility] VERIFY ABO/Rh Group Teston 0 07-24-2023 ABO group Nom (Bld) A Unive [facility] D Ag Ql (Bld) Positive [facility] ECG 12-LEADon 07-23-2023 ECG 12-LEAD Ventricular Rate 67 Atrial Rate 67 P-R Interval 152 QRS Duration 82 Q-T Interval 360 QTC Calculation(Bazett) 380 P Greenleaf 31 R Greenleaf 19 T Greenleaf -25 QRS Count 11 Q Onset 222 P Onset 146 P Offset 200 T Offset 402 QTC Fredericia 373 Diagnosis Normal sinus rhythm Inferior infarct (cited on or before 19-JUL-2023) Abnormal ECG When compared with ECG of 22-JUL-2023 06:48, No significant change was found Confirmed by Nadir Moreland ([id number]) on 07/24/2023 9:46:59 AM Normal [facility] Heparin Assayon 07-23-2023 Heparin unfractionated Chromogenic method Qn (PPP) 0.5 See Comment Below for Therapeutic Ranges IU/mL [facility] Heparin unfractionated Chrom ogenic method Qn (PPP)on 07-23-2023 Interpretation and review of laboratory results Normal [facility] ECG 12 Leadon 07-22-2023 Atrial Rate 66 BPM [facility] Work Phone: P Greenleaf 6 degrees [facility] Work Phone: P Offset 190 ms [facility] Work Phone: P Onset 140 ms [facility] Work Phone: [phone] UT Interval 144 ms [facility] Work Phone: [phone] Q Onset 212 ms [facility] Work Phone: [phone] QRS Count 11 beats [facility] Work Phone: [phone] QRS Duration 84 ms [facility] Work Phone: [phone] QT Interval 376 ms [facility] Work Phone: [phone] QTC Calculation(Bazett) 394 ms [facility] Work Phone: [phone] QTC Fredericia 388 ms [facility] Work Phone: [phone] R Greenleaf 24 degrees [facility] Work Phone: [phone] T Greenleaf -30 degrees [facility] Work Phone: [phone] T Offset 400 ms [facility] Work Phone: [phone] Ventricular Rate 66 BPM [facility] Work Phone: [phone] MUSE [facility] Work Phone: [phone] [facility] Work Phone: [phone] Atrial Rate 76 BPM [facility] Work Phone: [phone] UT Interval 142 ms [facility] Work Phone: [phone] QRS Duration 86 ms [facility] Work Phone: [phone] QT Interval 376 ms [facility] Work Phone: [phone] QTC Calculation(Bazett) 423 ms [facility] Work Phone: [phone] Ventricular Rate 76 BPM [facility] Work Phone: [phone] ECG 12-LEADon 07-22-2023 ECG 12-LEAD Ventricular Rate 66 Atrial Rate 66 P-R Interval 144 QRS Duration 84 Q-T Interval 376 QTC Calculation(Bazett) 394 P Greenleaf 6 R Greenleaf 24 T Greenleaf -30 QRS Count 11 Q Onset 212 P Onset 140 P Offset 190 T Offset 400 QTC Fredericia 388 Diagnosis Normal sinus rhythm Possible Inferior infarct (cited on or before 19-JUL-2023) Abnormal ECG When compared with ECG of 21-JUL-2023 06:27, (unconfirmed) No significant change was found Confirmed by Courtney Shrestha ([id number]) on 07/22/2023 7:37:18 AM Normal [facility] Heparin Assay, UFHon 024 Heparin unfractionated Chromogenic method Qn (PPP) 0.5 See Comment Below for Therapeutic Ranges IU/mL [facility] Heparin unfractionated Chrom ogenic method Qn (PPP)on 07-22-2023 Interpretation and review of laboratory results Normal [facility] ECG 12-LEADon 07-21-2023 ECG 12-LEAD Ventricular Rate 76 Atrial Rate 76 P-R Interval 142 QRS Duration 86 Q-T Interval 376 QTC Calculation(Bazett) 423 P Greenleaf 30 R Greenleaf 24 T Greenleaf -39 QRS Count 12 Q Onset 220 P Onset 149 P Offset 204 T Offset 408 QTC Fredericia 406 Diagnosis Normal sinus rhythm Inferior infarct (cited on or before 19-JUL-2023) T wave abnormality, consider lateral ischemia Abnormal ECG When compared with ECG of 20-JUL-2023 06:47, No significant change was found Confirmed by Courtney Shrestha ([id number]) on 07/22/2023 7:25:23 AM Normal [facility] ECG 12-LEADon 07-20-2023 ECG 12-LEAD Ventricular Rate 75 Atrial Rate 75 P-R Interval 156 QRS Duration 84 Q-T Interval 360 QTC Calculation(Bazett) 402 P Greenleaf 45 R Greenleaf 46 T Greenleaf -30 QRS Count 12 Q Onset 220 P Onset 142 P Offset 199 T Offset 400 QTC Fredericia 387 Diagnosis Normal sinus rhythm Possible Inferior infarct (cited on or before 19-JUL-2023) Abnormal ECG When compared with ECG of 19-JUL-2023 07:06, No significant change was found Confirmed by Courtney Shrestha ([id number]) on 07/20/2023 5:44:48 PM Normal [facility] ECG 12-LEADon 07-19-2023 ECG 12-LEAD Ventricular Rate 66 Atrial Rate 66 P-R Interval 132 QRS Duration 80 Q-T Interval 376 QTC Calculation(Bazett) 394 P Greenleaf 4 R Greenleaf 18 T Greenleaf -24 QRS Count 11 Q Onset 214 P Onset 148 P Offset 191 T Offset 402 QTC Fredericia 388 Diagnosis Normal sinus rhythm Possible Inferior infarct , age undetermined Abnormal ECG No previous ECGs available Confirmed by Courtney Shrestha ([id number]) on 07/19/2023 7:31:32 AM Normal [facility] Partial Thromboplastin Timeo n 07-19-2023 aPTT Coag (Bld) [Time] 46.6 s High 25.1-36.5 [facility] Comment on above: Result Comment: A he matocrit value greater than 55% may lead to inaccurate results in coagulation testing. Patients having hematocrit values >55% require a special collection tube for coagulation studies. Please contact the laboratory at [phone] for redraw instructions. PERFORMED BY: [place] [address] PATHOLOGIST SHEET METAL MECHANIC ANNE MCFARLAND M.D. Performed By: #### H S TROP #### [address] A1C with Estimated Average G [facility] 07-18-2023 Glucose [Mass/Vol] 108 mg/dL Normal [facility] Comment on above: Result Comment: PERF ORMED BY: [place] [address] PATHOLOGIST SHEET METAL MECHANIC ANNE MCFARLAND M.D. Performed By: #### H S TROP #### [facility] [address] [place] [address] HbA1c (Bld) [Mass fraction] 5.4 % Normal 4.3-5.6 [facility] Comment on above: Result Comment: Incr eased risk for diabetes: 5.7 - 6.4 diabetes: >6.4 glycemic control for adults with diabetes: <7.0 Performed By: #### H S TROP #### [address] Basic Metabolic Panelon 03-0 Anion gap [Moles/Vol] 9.7 mmol/L Normal 6.0-15.0 [facility] Comment on above: Order Comment: FASTI NG Y Performed By: #### L IPID, BMP #### [facility] [address] Calcium [Mass/Vol] 8.9 mg/dL Normal 8.6-10.3 [facility] Comment on above: Order Comment: FASTI NG Y Performed By: #### L IPID, BMP #### [facility] [address] [place] [address] [place] Chloride [Moles/Vol] 108 mmol/L High 98-107 [facility] Comment on above: Order Comment: FASTI NG Y Performed By: #### L IPID, BMP #### [facility] [address] [place] [address] CO2 [Moles/Vol] 24.5 mmol/L Normal 21.0-31.0 [facility] Comment on above: Order Comment: FASTI NG Y Performed By: #### L IPID, BMP #### [address] Creatinine [Mass/Vol] 1.06 mg/dL Normal 0.70-1.30 [facility] Comment on above: Order Comment: FASTI NG Y Performed By: #### L IPID, BMP #### [facility] [address] [place] [address] Creatinine Clr Calc Pharmacy 87.45 [facility] Comment on above: Order Comment: FASTI NG Y Performed By: #### L IPID, BMP #### [facility] [address] [place] [address] [place] GFR/1.73 sq M.predicted MDRD (S/P/Bld) [Vol rate/Area] mL/min/{1.73_m2} [facility] Comment on above: Order Comment: FASTI NG Y Performed By: #### L IPID, BMP #### [facility] [address] [place] [address] Glucose [Mass/Vol] 91 mg/dL Normal 70-100 [facility] Comment on above: Order Comment: FASTI NG Y Result Comment: [place] Glucose Reference Range is dependent on time and content of last meal. Glucose of more than 200 mg/dL in a nonstressed, ambulatory subject supports the diagnosis of Diabetes Mellitus. ADA recommended reference range Performed By: #### L IPID, BMP #### [address] Potassium [Moles/Vol] 4.2 mmol/L Normal 3.5-5.1 [facility] Comment on above: Order Comment: FASTI NG Y Performed By: #### L IPID, BMP #### [address] Sodium [Moles/Vol] 138 mmol/L Normal 136-145 [facility] Comment on above: Order Comment: FASTI NG Y Performed By: #### L IPID, BMP #### [address] Urea nitrogen [Mass/Vol] 16 mg/dL Normal 7-25 [facility] Comment on above: Order Comment: FASTI NG Y Performed By: #### L IPID, BMP #### [address] Complete Blood Count Auto Di ffon 07-18-2023 Basophils (Bld) [#/Vol] 0.1 10*3/uL Normal 0.0-0.2 [facility] Comment on above: Result Comment: PERF ORMED BY: [place] [address] PATHOLOGIST SHEET METAL MECHANIC ANNE MCFARLAND M.D. Performed By: #### H S TROP #### [place] [address] [place] Basophils/100 WBC (Bld) 1.0 % Normal . [facility] Comment on above: Performed By: #### H S TROP #### [place] [address] [place] Eosinophils (Bld) [#/Vol] 0.1 10*3/uL Normal 0.0-0.45 [facility] Comment on above: Performed By: #### H S TROP #### [facility] [address] Eosinophils/100 WBC (Bld) 1.2 % Normal . [facility] Comment on above: Performed By: #### H S TROP #### [address] Erythrocyte distribution width (RBC) [Ratio] 13.5 % Normal 12.0-14.8 [facility] Comment on above: Performed By: #### H S TROP #### [address] Hematocrit (Bld) [Volume fraction] 43.2 % Normal 38.8-50.0 [facility] Comment on above: Performed By: #### H S TROP #### [address] Hemoglobin (Bld) [Mass/Vol] 14.5 g/dL Normal 13.0-17.0 [facility] Comment on above: Performed By: #### H S TROP #### [address] Lymphocytes (Bld) [#/Vol] 3.3 10*3/uL Normal 1.00-4.8 [facility] Comment on above: Performed By: #### H S TROP #### [address] Lymphocytes/100 WBC (Bld) 41.3 % Normal . [facility] Comment on above: Performed By: #### H S TROP #### [address] MCH (RBC) [Entitic mass] 29.7 pg Normal 27.5-35.2 [facility] Comment on above: Performed By: #### H S TROP #### [address] MCV (RBC) [Entitic vol] 88.7 fL Normal 83.5-101 [facility] Comment on above: Performed By: #### H S TROP #### [address] Mean Corpuscular HGB Conc 33.5 g/dL Normal 32.5-35.6 [facility] Comment on above: Performed By: #### H S TROP #### [facility] [address] Monocytes (Bld) [#/Vol] 0.9 10*3/uL High 0.0-0.8 [facility] Comment on above: Performed By: #### H S TROP #### [place] [address] [place] Monocytes/100 WBC (Bld) 11.2 % Normal . [facility] Comment on above: Performed By: #### H S TROP #### [address] Neutrophils (Bld) [#/Vol] 3.6 10*3/uL Normal 1.8-7.7 [facility] Comment on above: Performed By: #### H S TROP #### [address] Neutrophils/100 WBC (Bld) 45.3 % Normal . [facility] Comment on above: Performed By: #### H S TROP #### [address] NRBC% 0.1 /100{WBC} Normal 0-0.5 [facility] Comment on above: Performed By: #### H S TROP #### [address] Platelet mean volume (Bld) [Entitic vol] 8.6 fL Normal 6.6-10.1 [facility] Comment on above: Performed By: #### H S TROP #### [facility] [address] [place] [address] [place] Platelets (Bld) [#/Vol] 278 10*3/uL Normal 150-450 [facility] Comment on above: Performed By: #### H S TROP #### [address] RBC (Bld) [#/Vol] 4.87 10*6/uL Normal 3.90-5.60 [facility] Comment on above: Performed By: #### H S TROP #### [address] WBC (Bld) [#/Vol] 7.9 10*3/uL Normal 4.1-10.5 [facility] Comment on above: Performed By: #### H S TROP #### [place] [address] [place] Basophils (Bld) [#/Vol] 0.0 10*3/uL Normal 0.0-0.2 [facility] Comment on above: Result Comment: PERF ORMED BY: [place] [address] PATHOLOGIST SHEET METAL MECHANIC ANNE MCFARLAND M.D. Performed By: #### P TT, BMP #### [address] Basophils/100 WBC (Bld) 0.4 % Normal . [facility] Comment on above: Performed By: #### P TT, BMP #### [address] Eosinophils (Bld) [#/Vol] 0.1 10*3/uL Normal 0.0-0.45 [facility] Comment on above: Performed By: #### P TT, BMP #### [address] Eosinophils/100 WBC (Bld) 1.6 % Normal . [facility] Comment on above: Performed By: #### P TT, BMP #### [address] Erythrocyte distribution width (RBC) [Ratio] 13.7 % Normal 12.0-14.8 [facility] Comment on above: Performed By: #### P TT, BMP #### [address] Hematocrit (Bld) [Volume fraction] 43.2 % Normal 38.8-50.0 [facility] Comment on above: Performed By: #### P TT, BMP #### [facility] [address] Hemoglobin (Bld) [Mass/Vol] 14.6 g/dL Normal 13.0-17.0 [facility] Comment on above: Performed By: #### P TT, BMP #### [facility] [address] Lymphocytes (Bld) [#/Vol] 3.1 10*3/uL Normal 1.00-4.8 [facility] Comment on above: Performed By: #### P TT, BMP #### [facility] [address] Lymphocytes/100 WBC (Bld) 40.3 % Normal . [facility] Comment on above: Performed By: #### P TT, BMP #### [address] MCH (RBC) [Entitic mass] 30.0 pg Normal 27.5-35.2 [facility] Comment on above: Performed By: #### P TT, BMP #### [address] MCV (RBC) [Entitic vol] 88.6 fL Normal 83.5-101 [facility] Comment on above: Performed By: #### P TT, BMP #### [address] Mean Corpuscular HGB Conc 33.9 g/dL Normal 32.5-35.6 [facility] Comment on above: Performed By: #### P TT, BMP #### [facility] [address] [place] [address] [place] Monocytes (Bld) [#/Vol] 0.8 10*3/uL Normal 0.0-0.8 [facility] Comment on above: Performed By: #### P TT, BMP #### [facility] [address] [place] [address] [place] Monocytes/100 WBC (Bld) 10.8 % Normal . [facility] Comment on above: Performed By: #### P TT, BMP #### [facility] [address] [place] [address] [place] Neutrophils (Bld) [#/Vol] 3.6 10*3/uL Normal 1.8-7.7 [facility] Comment on above: Performed By: #### P TT, BMP #### [facility] [address] [place] [id number] [place] Neutrophils/100 WBC (Bld) 46.9 % Normal . [facility] Comment on above: Performed By: #### P TT, BMP #### [facility] [address] [place] [address] [place] NRBC% 0.1 /100{WBC} Normal 0-0.5 [facility] Comment on above: Performed By: #### P TT, BMP #### [place] [address] [place] Platelet mean volume (Bld) [Entitic vol] 9.2 fL Normal 6.6-10.1 [facility] Comment on above: Performed By: #### P TT, BMP #### [place] [address] [place] Platelets (Bld) [#/Vol] 252 10*3/uL Normal 150-450 [facility] Comment on above: Performed By: #### P TT, BMP #### [place] [address] [place] RBC (Bld) [#/Vol] 4.88 10*6/uL Normal 3.90-5.60 [facility] Comment on above: Performed By: #### P TT, BMP #### [place] [address] [place] WBC (Bld) [#/Vol] 7.7 10*3/uL Normal 4.1-10.5 [facility] Comment on above: Performed By: #### P TT, BMP #### [address] [address] [place] ECG 12 lead ECGon 07-18-2023 ECG 12 lead ECG [facility] [place] [address] [place] [address] Electrocardiograph Report Signed Patient: Robert Smiley MR#: [id number] : 1960 Acct:[id number] Age/Sex: 62 / M ADM Date: 07/17/23 Loc: Room: [address] [place] [address] Type: DIS IN Attending Dr: Apolinar Dela [...] change was found Confirmed by Gatito Harp ([id number]) on 07/19/2023 11:03:53 PM Referred By: Electronically Signed By:Gatito Harp Transcribed By: MUS Signed By Gatito Harp MD 07/19/23 2303 Normal [facility] Lipid Panelon 07-18-2023 Cholesterol [Mass/Vol] 202 mg/dL High 140-200 [facility] Comment on above: Order Comment: LAILA Manjarrez Result Comment: Chol less than 200 mg/dl low risk Chol 201-239 mg/dl borderline risk Chol 240 mg/dl and greater high risk Performed By: #### L IPID, BMP #### [facility] [address] [place] [id number] [place] Cholesterol in HDL [Mass/Vol] 56 mg/dL Normal 23-92 [facility] Comment on above: Order Comment: LAILA Manjarrez Result Comment: HDL CHOL ATP-III CLASSIFICATION Cardiovascular Risk HDL > or equal to 60 mg/dL LOW HDL < 40 mg/dL HIGH Performed By: #### L IPID, BMP #### [facility] [address] [place] [address] [place] Cholesterol.total/Chol esterol in HDL [Mass ratio] 3.6 {ratio} Normal <5.0 [facility] Comment on above: Order Comment: LAILA MEJIA Josseline Result Comment: PERF ORMED BY: [place] [address] PATHOLOGIST SHEET METAL MECHANIC ANNE MCFARLAND M.D. Performed By: #### L IPID, BMP #### [facility] [address] LDL Cholesterol,Calculated 114 mg/dL High 0-100 [facility] Comment on above: Order Comment: LAILA MEJIA Y Result Comment: LDL ATP III CLASSIFICATION LDL less than 100 mg/dL Optimal LDL 100-129 mg/dL Near or above optimal LDL 130-159 mg/dL Borderline high LDL 160-189 mg/dL High LDL greater than 189 mg/dL Very high Performed By: #### L IPID, BMP #### [facility] [address] [place] [address] Triglyceride w/Reflex 158 mg/dL High 0-149 [facility] Comment on above: Order Comment: LAILA MEJIA Y Result Comment: TRIG ATP III CLASSIFICATION TRIG less than 150 mg/dL Normal TRIG 150-199 mg/dL Borderline high TRIG 200-500 mg/dL High TRIG greater than 500 mg/dL Very high Standard traceable to the Center for Disease Conrtrol and Prevention (CDC) test method. Performed By: #### L IPID, BMP #### [facility] [address] [place] [address] VLDL CHOLESTEROL 31 mg/dL Normal [facility] Comment on above: Order Comment: LAILA Manjarrez Performed By: #### L IPID, BMP #### [facility] [address] [place] [address] [place] Partial Thromboplastin Timeo n 07-18-2023 aPTT Coag (Bld) [Time] 31.6 s Normal 25.1-36.5 [facility] Comment on above: Result Comment: A he matocrit value greater than 55% may lead to inaccurate results in coagulation testing. Patients having hematocrit values >55% require a special collection tube for coagulation studies. Please contact the laboratory at [phone] for redraw instructions. PERFORMED BY: [place] [address] PATHOLOGIST SHEET METAL MECHANIC ANNE MCFARLAND M.D. Performed By: #### H S TROP #### [place] [address] [place] aPTT Coag (Bld) [Time] 89.4 s High 25.1-36.5 [facility] Comment on above: Result Comment: A he matocrit value greater than 55% may lead to inaccurate results in coagulation testing. Patients having hematocrit values >55% require a special collection tube for coagulation studies. Please contact the laboratory at [phone] for redraw instructions. PERFORMED BY: [place] [address] PATHOLOGIST SHEET METAL MECHANIC ANNE MCFARLAND M.D. Performed By: #### P TT #### [place] [address] [place] aPTT Coag (Bld) [Time] 57.3 s High 25.1-36.5 [facility] Comment on above: Result Comment: A he matocrit value greater than 55% may lead to inaccurate results in coagulation testing. Patients having hematocrit values >55% require a special collection tube for coagulation studies. Please contact the laboratory at [phone] for redraw instructions. PERFORMED BY: [place] [address] PATHOLOGIST SHEET METAL MECHANIC ANNE MCFARLAND M.D. Performed By: #### P TT, BMP #### [place] [address] [place] aPTT Coag (Bld) [Time] 82.6 s High 25.1-36.5 [facility] Comment on above: Result Comment: A he matocrit value greater than 55% may lead to inaccurate results in coagulation testing. Patients having hematocrit values >55% require a special collection tube for coagulation studies. Please contact the laboratory at [phone] for redraw instructions. PERFORMED BY: [place] [address] PATHOLOGIST SHEET METAL MECHANIC ANNE MCFARLAND M.D. Performed By: #### P TT #### [address] Prothrombin Time INRon 07-17 INR Coag (PPP) [Relative time] 1.0 {INR} Normal [facility] Comment on above: Result Comment: INR [...] Performed By: #### H S TROP #### [address] PT Coag (PPP) [Time] 11.4 s Normal 9.0-12.9 [facility] Comment on above: Result Comment: A he matocrit value greater than 55% may lead to inaccurate results in coagulation testing. Patients having hematocrit values >55% require a special collection tube for coagulation studies. Please contact the laboratory at [phone] for redraw instructions. Performed By: #### H S TROP #### [address] B-Type Natriuretic Peptideon 07-17-2023 Natriuretic peptide B (Bld) [Mass/Vol] 145.0 pg/mL High 5-100 [facility] Comment on above: Result Comment: PERF ORMED BY: [place] [address] PATHOLOGIST SHEET METAL MECHANIC ANNE MCFARLAND M.D. Performed By: #### B IT PROJECT MANAGER #### [address] Basic Metabolic Panelon Anion gap [Moles/Vol] 8.5 mmol/L Normal 6.0-15.0 [facility] Comment on above: Performed By: #### P TT, BMP #### [address] Calcium [Mass/Vol] 9.3 mg/dL Normal 8.6-10.3 [facility] Comment on above: Performed By: #### P TT, BMP #### [facility] [address] Chloride [Moles/Vol] 108 mmol/L High 98-107 [facility] Comment on above: Performed By: #### P TT, BMP #### [facility] [address] CO2 [Moles/Vol] 27.1 mmol/L Normal 21.0-31.0 [facility] Comment on above: Performed By: #### P TT, BMP #### [facility] [address] Creatinine [Mass/Vol] 1.00 mg/dL Normal 0.70-1.30 [facility] Comment on above: Performed By: #### P TT, BMP #### [facility] [address] Creatinine Clr Calc Pharmacy 93.04 [facility] Comment on above: Result Comment: PERF ORMED BY: [place] [address] PATHOLOGIST SHEET METAL MECHANIC ANNE MCFARLAND M.D. Performed By: #### P TT, BMP #### [address] GFR/1.73 sq M.predicted MDRD (S/P/Bld) [Vol rate/Area] mL/min/{1.73_m2} [facility] Comment on above: Performed By: #### P TT, BMP #### [facility] [address] Glucose [Mass/Vol] 101 mg/dL High 70-100 [facility] Comment on above: Result Comment: [place] Glucose Reference Range is dependent on time and content of last meal. Glucose of more than 200 mg/dL in a nonstressed, ambulatory subject supports the diagnosis of Diabetes Mellitus. ADA recommended reference range Performed By: #### P TT, BMP #### [facility] [address] Potassium [Moles/Vol] 4.6 mmol/L Normal 3.5-5.1 [facility] Comment on above: Performed By: #### P TT, BMP #### [facility] [address] Sodium [Moles/Vol] 139 mmol/L Normal 136-145 [facility] Comment on above: Performed By: #### P TT, BMP #### [facility] [address] Urea nitrogen [Mass/Vol] 14 mg/dL Normal 7-25 [facility] Comment on above: Performed By: #### P TT, BMP #### [facility] [address] [place] [address] ECG 12 lead ECGon 07-17-2023 ECG 12 lead ECG [facility] [place] [address] [place] [address] Electrocardiograph Report Signed Patient: Robert Smiley MR#: [id number] : 1960 Acct:[id number] Age/Sex: 62 / M ADM Date: 07/17/23 Loc: Room: [address] [place] [address] Type: DIS IN Attending Dr: Apolinar Dela [...] previous ECGs available Confirmed by Gatito Harp ([id number]) on 07/19/2023 11:03:49 PM Referred By: Electronically Signed By:Gatito Harp Transcribed By: MUS Signed By Gatito Harp MD 07/19/23 6057 Normal [facility] Partial Thromboplastin Timeo n 07-17-2023 aPTT Coag (Bld) [Time] 53.6 s High 25.1-36.5 [facility] Comment on above: Result Comment: A he matocrit value greater than 55% may lead to inaccurate results in coagulation testing. Patients having hematocrit values >55% require a special collection tube for coagulation studies. Please contact the laboratory at [phone] for redraw instructions. PERFORMED BY: [phone] PATHOLOGIST SHEET [employer]CH[employer]IC ANNE MCFARLAND M.D. Performed By: #### P TT #### [address] aPTT Coag (Bld) [Time] 40.3 s High 25.1-36.5 [facility] Comment on above: Result Comment: A he matocrit value greater than 55% may lead to inaccurate results in coagulation testing. Patients having hematocrit values >55% require a special collection tube for coagulation studies. Please contact the laboratory at [phone] for redraw instructions. PERFORMED BY: [place] [phone] PATHOLOGIST SHEET MET[employer] MECHANIC ANNE MCFARLAND M.D. Performed By: #### H S TROP #### [address] aPTT Coag (Bld) [Time] 37.5 s High 25.1-36.5 [facility] Comment on above: Result Comment: A he matocrit value greater than 55% may lead to inaccurate results in coagulation testing. Patients having hematocrit values >55% require a special collection tube for coagulation studies. Please contact the laboratory at [phone] for redraw instructions. PERFORMED BY: [phone] PATHOLOGIST SHEET [employer] MECHANIC ANNE MCFARLAND M.D. Performed By: #### P TT, BMP #### [address] Troponin I High Sensitivityo n 07-17-2023 Troponin I High Sensitivity 4598.0 pg/mL Off scale high 0.0-20.0 [facility] Comment on above: Result Comment: Crit ical Result : Called to and read back by: VISHNU CASEY at: 07/17/2023 12:59:53 by:MLG PERFORMED BY: [place] [id number] PATHOLOGIST SHEET [employer] MECHANIC ANNE MCFARLAND M.D. Performed By: #### H S TROP #### [place] [id number] [place] Troponin I High Sensitivity 2325.9 pg/mL Off scale high 0.0-20.0 [facility] Comment on above: Result Comment: Crit ical Result : Called to and read back by: OG CARTER at: 07/17/2023 10:25:16 by:[id number] PERFORMED BY: [place] [phone] PATHOLOGIST SHEET [employer] MECHANIC ANNE MCFARLAND M.D. Performed By: #### H S TROP #### [place] [id number] [place] Troponin I High Sensitivity 1532.1 pg/mL Off scale high 0.0-20.0 [facility] Comment on above: Result Comment: Crit ical Result : Called to and read back by: OG CARTER at: 07/17/2023 09:08:15 by:MLG PERFORMED BY: [place] [phone] PATHOLOGIST SHEET [employer] MECHANIC ANNE MCFARLAND M.D. Performed By: #### H S TROP #### [place] [id number] [place] Troponin I High Sensitivity 859.5 pg/mL Off scale high 0.0-20.0 [facility] Comment on above: Result Comment: Crit ical Result : Called to and read back by: ZOHRA BRITT at: 07/17/2023 06:31:22 by:[id number] PERFORMED BY: [place] [id number] PATHOLOGIST SHEET MET[employer] MECHANIC ANNE MCFARLAND M.D. Performed By: #### H S TROP #### [facility] [address] CBC AUTO DIFFon 07-13-2022 BASO # 0.0 103/ul Normal 0.0-0.1 [facility] Comment on above: Performed By: #### C BC #### [facility] [address] [place] [address] [address] Jurgen Nunn Basophils/100 WBC (Bld) 0.6 % Normal 0.2-2.0 [facility] Comment on above: Performed By: #### C BC #### [facility] [address] [place] [address] [address] Jurgen Nunn EO # 0.1 103/ul Normal 0.0-0.7 [facility] Comment on above: Performed By: #### C BC #### [facility] [address] [place] [address] Dr. Jurgen Nunn Eosinophils/100 WBC (Bld) 1.4 % Normal 0.9-7.0 [facility] Comment on above: Performed By: #### C BC #### [facility] [address] [place] [address] Dr. Jurgen Nunn Erythrocyte distribution width (RBC) [Ratio] 13.3 % Normal 11.0-15.0 [facility] Comment on above: Performed By: #### C BC #### [facility] [address] [place] [address] Dr. Jurgen Nunn Hematocrit (Bld) [Volume fraction] 49.5 % Normal 42.0-54.0 [facility] Comment on above: Performed By: #### C BC #### [facility] [address] [place] [address] [address] Jurgen Nunn Hemoglobin (Bld) [Mass/Vol] 16.7 g/dL Normal 14.0-18.0 [facility] Comment on above: Performed By: #### C BC #### [facility] [address] [place] [address] Dr. Jurgen Nunn IG # 0.05 10e3/ul Critically high 0.00-0.03 [facility] Comment on above: Performed By: #### C BC #### [facility] [address] [place] [address] Dr. Jurgen Nunn IG % 0.8 % Critically high 0.0-0.5 [facility] Comment on above: Performed By: #### C BC #### [facility] [address] [place] [address] Dr. Jurgen Nunn LYMPH # 2.2 103/ul Normal 1.2-3.8 [facility] Comment on above: Performed By: #### C BC #### [facility] [address] [place] [address] Dr. Jurgen Nunn Lymphocytes/100 WBC (Bld) 34.1 % Normal 20.5-60.0 [facility] Comment on above: Performed By: #### C BC #### [facility] [address] [place] [address] Dr. Jurgen Nunn MANUAL DIFF REQ NO Normal [facility] Comment on above: Performed By: #### C BC #### [facility] [address] [place] [address] Dr. Jurgen Nunn MCH (RBC) [Entitic mass] 29.9 pg Normal 25.9-34.0 [facility] Comment on above: Performed By: #### C BC #### [facility] [address] [place] [address] Dr. uJrgen Nunn MCHC (RBC) [Mass/Vol] 33.7 g/dL Normal 29.9-35.2 [facility] Comment on above: Performed By: #### C BC #### [facility] [address] [place] [address] Dr. Jurgen Nunn MCV (RBC) [Entitic vol] 88.7 fL Normal 80.0-94.0 [facility] Comment on above: Performed By: #### C BC #### [facility] [address] [place] [address] Dr. Jurgen Nunn MONO # 0.6 103/ul Normal 0.3-0.8 [facility] Comment on above: Performed By: #### C BC #### [facility] [address] [place] [address] [address] Jurgen Nunn Monocytes/100 WBC (Bld) 8.8 % Normal 1.7-12.0 [facility] Comment on above: Performed By: #### C BC #### [facility] [address] [place] [address] Dr. Jurgen Nunn NEUT # 3.5 103/ul Normal 1.4-6.5 [facility] Comment on above: Performed By: #### C BC #### [facility] [address] [place] [address] Dr. Jurgen Nunn Neutrophils/100 WBC (Bld) 54.3 % Normal 43.0-75.0 [facility] Comment on above: Performed By: #### C BC #### [facility] [address] [place] [address] Dr. Jurgen Nunn Platelet mean volume (Bld) [Entitic vol] 10.1 fL Normal 9.5-13.5 [facility] Comment on above: Performed By: #### C BC #### [facility] [address] [place] [address] Dr. Jurgen Nunn PLT 227 103/ul Normal 150-450 [facility] Comment on above: Performed By: #### C BC #### [facility] [address] [place] [address] Dr. Jurgen Nunn RBC 5.58 106/ul Normal 4.70-6.10 [facility] Comment on above: Performed By: #### C BC #### [facility] [address] [place] [address] Dr. Jurgen Nunn WBC 6.5 103/ul Normal 4.0-11.0 [facility] Comment on above: Performed By: #### C BC #### [facility] [address] [place] [address] Dr. Jurgen Nunn PROF 14(COMP METB)on 023 Albumin [Mass/Vol] 3.7 g/dL Normal 3.4-5.0 [facility] Comment on above: Performed By: #### T 4, CMP, TSH #### [facility] [address] [place] [address] [address] Jurgen Nunn Albumin/Globulin [Mass ratio] 1.0 {ratio} Normal [facility] Comment on above: Performed By: #### T 4, CMP, TSH #### [facility] [address] [place] [address] [address] Jurgen Nunn ALP [Catalytic activity/Vol] 81 U/L Normal 46-116 [facility] Comment on above: Performed By: #### T 4, CMP, TSH #### [facility] [address] [place] [address] [address] Jurgen Nunn ALT [Catalytic activity/Vol] 21 U/L Normal 16-63 [facility] Comment on above: Performed By: #### T 4, CMP, TSH #### [facility] [address] [place] [address] [address] Jurgen Nunn Anion gap [Moles/Vol] 9.4 mmol/L Normal [facility] Comment on above: Performed By: #### T 4, CMP, TSH #### [facility] [address] [place] [address] [address] Jurgen Nunn AST [Catalytic activity/Vol] 18 U/L Normal 15-37 [facility] Comment on above: Performed By: #### T 4, CMP, TSH #### [facility] [address] [place] [address] [address] Jurgen Nunn Bilirubin [Mass/Vol] 0.6 mg/dL Normal 0.2-1.0 [facility] Comment on above: Performed By: #### T 4, CMP, TSH #### [facility] [address] [place] [address] [address] Jurgen Nunn Calcium [Mass/Vol] 9.0 mg/dL Normal 8.5-10.1 [facility] Comment on above: Performed By: #### T 4, CMP, TSH #### [facility] [address] [place] [address] [address] Jurgen Nunn Chloride [Moles/Vol] 107 mmol/L Normal 98-107 [facility] Comment on above: Performed By: #### T 4, CMP, TSH #### [facility] [address] [place] [address] [address] Jurgen Nunn CO2 [Moles/Vol] 29.0 mmol/L Normal 21.0-32.0 [facility] Comment on above: Performed By: #### T 4, CMP, TSH #### [facility] [address] [place] [address] [address] Jurgen Nunn Creatinine [Mass/Vol] 1.02 mg/dL Normal 0.70-1.30 [facility] Comment on above: Performed By: #### T 4, CMP, TSH #### [facility] [address] [place] [address] Dr. Jurgen Nunn EGFR-AF SINGAPOREAN >60 Normal >=60 [facility] Comment on above: Performed By: #### T 4, CMP, TSH #### [facility] [address] [place] [address] [address] Jurgen Nunn EGFR-NON AF SINGAPOREAN >60 Normal >=60 [facility] Comment on above: Performed By: #### T 4, CMP, TSH #### [facility] [address] [place] [address] Dr. Jurgen Nunn Globulin (S) [Mass/Vol] 3.6 g/dL Normal [facility] Comment on above: Performed By: #### T 4, CMP, TSH #### [facility] [address] [place] [address] [address] Jurgen Nunn Glucose [Mass/Vol] 100 mg/dL Normal 74-106 [facility] Comment on above: Performed By: #### T 4, CMP, TSH #### [facility] [address] [place] [address] [address] Jurgen Nunn Potassium [Moles/Vol] 4.4 mmol/L Normal 3.5-5.1 [facility] Comment on above: Performed By: #### T 4, CMP, TSH #### [facility] [address] [place] [address] [address] Jurgen Nunn Protein [Mass/Vol] 7.3 g/dL Normal 6.4-8.2 [facility] Comment on above: Performed By: #### T 4, CMP, TSH #### [facility] [address] [place] [address] Dr. Jurgen Nunn Sodium [Moles/Vol] 141 mmol/L Normal 136-145 [facility] Comment on above: Performed By: #### T 4, CMP, TSH #### [facility] [address] [place] [address] Dr. Jurgen Nunn Urea nitrogen [Mass/Vol] 13.0 mg/dL Normal 7.0-18.0 [facility] Comment on above: Performed By: #### T 4, CMP, TSH #### [facility] [address] [place] [address] Dr. Jurgen Nunn Urea nitrogen/Creatinine [Mass ratio] 12.7 mg/mg Normal [facility] Comment on above: Performed By: #### T 4, CMP, TSH #### [facility] [address] [place] [address] Dr. Jurgen Nunn T4on 07-13-2022 T4 [Mass/Vol] 9.50 ug/dL Normal 4.50-12.[address] [facility] Comment on above: Performed By: #### T 4, CMP, TSH #### [facility] [address] [place] [address] Dr. Jurgen Nunn TSHon 07-13-2022 TSH 1.890 uIU/mL Normal 0.358-3.[address] [facility] Comment on above: Performed By: #### T 4, CMP, TSH #### [facility] [address] [place] [address] Dr. Jurgen Nunn PSA, FREE AND TOTAL RATIOon 04-23-2022 % Free PSA 14.0 % Normal [facility] Comment on above: Result Comment: The table [...] men. Performed By: #### P SAFREE #### [facility] [address] [place] [address] [address] Jurgen Nunn Prostate specific Ag [Mass/Vol] 5.3 ng/mL Critically high 0.0-4.0 [facility] Comment on above: Result Comment: Sylvester LOWE methodology. . According to the [place] [employer], Serum PSA should decrease and [...] disease. Performed By: #### P SAFREE #### [facility] [address] [place] [address] [address] Jurgen Nunn PSA, Free 0.74 ng/mL Normal N/A [facility] Comment on above: Result Comment: Sylvester rodriguez ECLRAJESH methodology. Performed By: #### P SAFREE #### [facility] [address] [place] [address] [address] Jurgen Nunn Creatinine (Bld) [Mass/Vol]O rdered By: Cora Lee on 12-07-2021 Creatinine [Mass/Vol] 1.0 mg/dL 0.6-1.3 [facility] Comment on above: ER/ESD physician is notified/shown all ISTAT results. Critical values may be confirmed by laboratory testing if deemed necessary by ER attending doctor. No Panel InformationOrdered By: Cora Lee on 12-07-2021 POC Estimated GFR > 60 [facility] Comment on above: GFR estimated refere nce range: According to KDOQI guidelines, <60 ml/min/1.73m2 is sufficient to diagnose a patient with chronic kidney disease. POC Estimated GFR Non- Amer > 60 [facility] PSA, FREE AND TOTAL RATIOon 10-29-2021 % Free PSA 13.5 % Normal [facility] Comment on above: Result Comment: The [...] men. Performed By: #### P SAFREE #### [facility] [address] [place] [address] Dr. Jurgen Nunn Prostate specific Ag [Mass/Vol] 4.9 ng/mL Critically high 0.0-4.0 [facility] Comment on above: Result Comment: Sylvester rodriguez ECLIA methodology. . According to the [place] [employer], Serum PSA should decrease and [...] disease. Performed By: #### P SAFREE #### [facility] [address] [place] [address] Dr. Jurgen Nunn PSA, Free 0.66 ng/mL Normal N/A [facility] Comment on above: Result Comment: Sylvester rodriguez ECLIA methodology. Performed By: #### P SAFREE #### [facility] [address] [place] [address] Dr. Jurgen Nunn CBC AUTO DIFFon 08-20-2021 BASO # 0.0 103/ul Normal 0.0-0.1 [facility] Comment on above: Performed By: #### C BC #### [facility] [address] [place] [address] [address] Jurgen Nunn Basophils/100 WBC (Bld) 0.4 % Normal 0.2-2.0 [facility] Comment on above: Performed By: #### C BC #### [facility] [address] [place] [address] Dr. Jurgen Nunn EO # 0.1 103/ul Normal 0.0-0.7 [facility] Comment on above: Performed By: #### C BC #### [facility] [address] [place] [address] Dr. Jurgen Nunn Eosinophils/100 WBC (Bld) 1.5 % Normal 0.9-7.0 [facility] Comment on above: Performed By: #### C BC #### [facility] [address] [place] [address] Dr. Jurgen Nunn Erythrocyte distribution width (RBC) [Ratio] 13.3 % Normal 11.0-15.0 [facility] Comment on above: Performed By: #### C BC #### [facility] [address] [place] [address] Dr. Jurgen Nunn Hematocrit (Bld) [Volume fraction] 49.4 % Normal 42.0-54.0 [facility] Comment on above: Performed By: #### C BC #### [facility] [address] [place] [address] Dr. Jurgen Nunn Hemoglobin (Bld) [Mass/Vol] 16.7 g/dL Normal 14.0-18.0 [facility] Comment on above: Performed By: #### C BC #### [facility] [address] [place] [address] Dr. Jurgen Nunn IG # 0.06 10e3/ul Critically high 0.00-0.03 [facility] Comment on above: Performed By: #### C BC #### [facility] [address] [place] [address] Dr. Jurgen Nunn IG % 0.8 % Critically high 0.0-0.5 [facility] Comment on above: Performed By: #### C BC #### [facility] [address] [place] [address] Dr. Jurgen Nunn LYMPH # 2.5 103/ul Normal 1.2-3.8 [facility] Comment on above: Performed By: #### C BC #### [facility] [address] [place] [address] Dr. Jurgen Nunn Lymphocytes/100 WBC (Bld) 35.1 % Normal 20.5-60.0 [facility] Comment on above: Performed By: #### C BC #### [facility] [address] [place] [address] Dr. Jurgen Nunn MANUAL DIFF REQ NO Normal [facility] Comment on above: Performed By: #### C BC #### [facility] [address] [place] [address] Dr. Jurgen Nunn MCH (RBC) [Entitic mass] 30.0 pg Normal 25.9-34.0 [facility] Comment on above: Performed By: #### C BC #### [facility] [address] [place] [address] Dr. Jurgen Nunn MCHC (RBC) [Mass/Vol] 33.8 g/dL Normal 29.9-35.2 [facility] Comment on above: Performed By: #### C BC #### [facility] [address] [place] [address] Dr. Jurgen Nunn MCV (RBC) [Entitic vol] 88.7 fL Normal 80.0-94.0 [facility] Comment on above: Performed By: #### C BC #### [facility] [address] [place] [address] Dr. Jurgen Nunn MONO # 0.6 103/ul Normal 0.3-0.8 [facility] Comment on above: Performed By: #### C BC #### [facility] [address] [place] [address] Dr. Jurgen Nunn Monocytes/100 WBC (Bld) 7.7 % Normal 1.7-12.0 [facility] Comment on above: Performed By: #### C BC #### [facility] [address] [place] [address] Dr. Jurgen Nunn NEUT # 3.9 103/ul Normal 1.4-6.5 [facility] Comment on above: Performed By: #### C BC #### [facility] [address] [place] [address] Dr. Jurgen Nunn Neutrophils/100 WBC (Bld) 54.5 % Normal 43.0-75.0 [facility] Comment on above: Performed By: #### C BC #### [facility] [address] [place] [address] Dr. Jurgen Nunn Platelet mean volume (Bld) [Entitic vol] 10.6 fL Normal 9.5-13.5 [facility] Comment on above: Performed By: #### C BC #### [facility] [address] [place] [address] Dr. Jurgen Nunn PLT 246 103/ul Normal 150-450 [facility] Comment on above: Performed By: #### C BC #### [facility] [address] [place] [address] Dr. Jurgen Nunn RBC 5.57 106/ul Normal 4.70-6.10 [facility] Comment on above: Performed By: #### C BC #### [facility] [address] [place] [address] Dr. Jurgen Nunn WBC 7.2 103/ul Normal 4.0-11.0 [facility] Comment on above: Performed By: #### C BC #### [facility] [address] [place] [address] Dr. Jurgen Nunn LIPID PROFILEon 08-20-2021 CHOL-HDL RATIO NORM SEE BELOW Normal [facility] Comment on above: Result Comment: 3.3 - 4.4 LOW RISK 4.4 - 7.1 AVERAGE RISK 7.1 - 11.0 MODERATE RISK >11.0 HIGH RISK Performed By: #### C MP, LIPID #### [facility] [address] [place] [address] Dr. Jurgen Nunn Cholesterol [Mass/Vol] 281 mg/dL Critically high <=200 [facility] Comment on above: Performed By: #### C MP, LIPID #### [facility] [address] [place] [address] [address] Jurgen Nunn Cholesterol in HDL [Mass/Vol] 66 mg/dL Critically high 40-60 [facility] Comment on above: Performed By: #### C MP, LIPID #### [facility] [address] [place] [address] [address] Jurgen Nunn Cholesterol in LDL [Mass/Vol] 196.2 mg/dL Normal [facility] Comment on above: Performed By: #### C MP, LIPID #### [facility] [address] [address] [address] Jurgen Nunn Cholesterol.total/Chol esterol in HDL [Mass ratio] 4.3 {ratio} Normal [facility] Comment on above: Performed By: #### C MP, LIPID #### [facility] [address] [address] [address] Jurgen Nunn HDL NORMAL > or = 60 mg/dl - LOW CARDIOVASCULAR RISK <40 mg/dl - HIGH CARDIOVASCULAR RISK Normal [facility] Comment on above: Performed By: #### C MP, LIPID #### [facility] [address] [place] [address] Dr. Jurgen Nunn LDL CALC NORMAL SEE BELOW Normal [facility] Comment on above: Result Comment: <100 mg/dl OPTIMAL 100 - 129 mg/dl NEAR OR ABOVE OPTIMAL 130 - 159 mg/dl BORDERLINE HIGH 160 - 189 mg/dl HIGH >190 mg/dl VERY HIGH Performed By: #### C MP, LIPID #### [facility] [address] [address] [address] Jurgen Nunn Triglyceride [Mass/Vol] 94 mg/dL Normal <=150 [facility] Comment on above: Performed By: #### C MP, LIPID #### [facility] [address] [address] [address] Jurgen Nunn VLDL CALC 18.8 mg/dL Normal [facility] Comment on above: Performed By: #### C MP, LIPID #### [facility] [address] [address] [address] Jurgen Nunn PROF 14(COMP METB)on 022 Albumin [Mass/Vol] 3.7 g/dL Normal 3.4-5.0 [facility] Comment on above: Performed By: #### C MP, LIPID #### [facility] [address] [place] [address] Dr. Jurgen Nunn Albumin/Globulin [Mass ratio] 0.9 {ratio} Normal [facility] Comment on above: Performed By: #### C MP, LIPID #### [facility] [address] [address] [address] Jurgen Nunn ALP [Catalytic activity/Vol] 89 U/L Normal 46-116 [facility] Comment on above: Performed By: #### C MP, LIPID #### [facility] [address] [place] [address] Dr. Jurgen Nunn ALT [Catalytic activity/Vol] 25 U/L Normal 16-63 [facility] Comment on above: Performed By: #### C MP, LIPID #### [facility] [address] [place] [address] Dr. Jurgen Nunn Anion gap [Moles/Vol] 14.3 mmol/L Normal [facility] Comment on above: Performed By: #### C MP, LIPID #### [facility] [address] [place] [address] Dr. Jurgen Nunn AST [Catalytic activity/Vol] 16 U/L Normal 15-37 [facility] Comment on above: Performed By: #### C MP, LIPID #### [facility] [address] [place] [address] Dr. Jurgen Nunn Bilirubin [Mass/Vol] 0.6 mg/dL Normal 0.2-1.3 [facility] Comment on above: Performed By: #### C MP, LIPID #### [facility] [address] [place] [address] Dr. Jurgen Nunn Calcium [Mass/Vol] 8.6 mg/dL Normal 8.5-10.1 [facility] Comment on above: Performed By: #### C MP, LIPID #### [facility] [address] [place] [address] Dr. Jurgen Nunn Chloride [Moles/Vol] 105 mmol/L Normal 98-107 [facility] Comment on above: Performed By: #### C MP, LIPID #### [facility] [address] [address] [address] Jurgen Nunn CO2 [Moles/Vol] 24.7 mmol/L Normal 22.0-30.0 [facility] Comment on above: Performed By: #### C MP, LIPID #### [facility] [address] [address] [address] Jurgen Nunn Creatinine [Mass/Vol] 0.97 mg/dL Normal 0.66-1.25 [facility] Comment on above: Performed By: #### C MP, LIPID #### [facility] [address] [place] [address] Dr. Jurgen Nunn EGFR-AF SINGAPOREAN >60 Normal >=60 [facility] Comment on above: Performed By: #### C MP, LIPID #### [facility] [address] [place] [address] Dr. Jurgen Nunn EGFR-NON AF SINGAPOREAN >60 Normal >=60 [facility] Comment on above: Performed By: #### C MP, LIPID #### [facility] [address] [address] [address] Jurgen Nunn Globulin (S) [Mass/Vol] 4.0 g/dL Normal [facility] Comment on above: Performed By: #### C MP, LIPID #### [facility] [address] [place] [address] Dr. Jurgen Nunn Glucose [Mass/Vol] 91 mg/dL Normal 74-106 [facility] Comment on above: Performed By: #### C MP, LIPID #### [facility] [address] [address] [address] Jurgen Nunn Potassium [Moles/Vol] 4.0 mmol/L Normal 3.4-5.0 [facility] Comment on above: Performed By: #### C MP, LIPID #### [facility] [address] [address] [address] Jurgen Nunn Protein [Mass/Vol] 7.7 g/dL Normal 6.1-8.2 [facility] Comment on above: Performed By: #### C MP, LIPID #### [facility] [address] [address] [address] Jurgen Nunn Sodium [Moles/Vol] 140 mmol/L Normal 137-145 [facility] Comment on above: Performed By: #### C MP, LIPID #### [facility] [address] [address] [address] Jurgen Nunn Urea nitrogen [Mass/Vol] 19.0 mg/dL Critically high 7.0-18.0 [facility] Comment on above: Performed By: #### C MP, LIPID #### [facility] [address] [address] [address] Jurgen Nunn Urea nitrogen/Creatinine [Mass ratio] 19.6 mg/mg Normal [facility] Comment on above: Performed By: #### C MP, LIPID #### [facility] [address] [address] [address] Jurgen Nunn CBC W/DIFFon 04-25-2018 ABS BASOPHILS 0.0 10*3/uL Normal 0.0-0.[address] [facility] Comment on above: Performed By: #### 5 0103 #### [facility] [address] ABS IMM GRANS 0.0 10*3/uL Normal 0.0-0.[address] [facility] Comment on above: Performed By: #### 5 0103 #### [facility] [address] ABS NEUTROPHILS 3.6 10*3/uL Normal 1.6-7.[address] [facility] Comment on above: Performed By: #### 5 0103 #### [facility] [address] Basophils/100 WBC (Bld) 0.5 % Normal 0.0-1.[address] [facility] Comment on above: Performed By: #### 5 0103 #### [facility] [address] Eosinophils (Bld) [#/Vol] 0.1 10*3/uL Normal 0.0-0.[address] [facility] Comment on above: Performed By: #### 5 0103 #### [facility] [address] Eosinophils/100 WBC (Bld) 1.2 % Normal 0.0-6.[address] [facility] Comment on above: Performed By: #### 3 #### [facility] [address] Erythrocyte distribution width (RBC) [Ratio] 13.2 % Normal 11.5-15.[address] [facility] Comment on above: Performed By: #### 3 #### [facility] [address] Hematocrit (Bld) [Volume fraction] 48.4 % Normal 39.0-50.[address] [facility] Comment on above: Performed By: #### 5 3 #### [facility] [address] Hemoglobin (Bld) [Mass/Vol] 16.1 g/dL Normal 13.0-17.[address] [facility] Comment on above: Performed By: #### 5 3 #### [facility] [address] IMMATURE GRANS 0.7 % Normal 0.0-1.[address] [facility] Comment on above: Performed By: #### 5 0103 #### [facility] [address] [place] [address], [facility] Lymphocytes (Bld) [#/Vol] 1.5 10*3/uL Normal 1.2-4.[address] [facility] Comment on above: Performed By: #### 5 3 #### [facility] [address] [place] [address], [facility] Lymphocytes/100 WBC (Bld) 25.9 % Normal 20.0-45.[address] [facility] Comment on above: Performed By: #### 5 0103 #### [facility] [address] [facility] [place] [address], [facility] MCH (RBC) [Entitic mass] 29.8 pg Normal 27.0-33.[address] [facility] Comment on above: Performed By: #### 5 0103 #### [facility] [address] [facility] [address], [facility] MCHC (RBC) [Mass/Vol] 33.3 g/dL Normal 32.0-35.[address] [facility] Comment on above: Performed By: #### 5 0103 #### [facility] [address] [place] [address], [facility] MCV (RBC) [Entitic vol] 89.6 fL Normal 82.0-98.[address] [facility] Comment on above: Performed By: #### 5 0103 #### [facility] [address] [place] [address], [facility] Monocytes (Bld) [#/Vol] 0.5 10*3/uL Normal 0.1-1.[address] [facility] Comment on above: Performed By: #### 5 0103 #### [facility] [address] [place] [address], [facility] MONOS 9.3 % Normal 5.0-12.[address] [facility] Comment on above: Performed By: #### 5 0103 #### [facility] [address] [place] [address], [facility] Neutrophils/100 WBC (Bld) 62.4 % Normal 40.0-72.[address] [facility] Comment on above: Performed By: #### 5 0103 #### [facility] [address] [facility] [place] [address], [facility] Nucleated RBC/100 WBC (Bld) [Ratio] 0 % Normal 0-[address] [facility] Comment on above: Performed By: #### 5 0103 #### [facility] [address] [place] [address], [facility] PLAT CNT 230 10*3/uL Normal 150-[address] [facility] Comment on above: Performed By: #### 5 0103 #### [facility] [address] [facility] RBC (Bld) [#/Vol] 5.40 10*6/uL Normal 4.20-5.[address] [facility] Comment on above: Performed By: #### 5 0103 #### [facility] [address] [facility] WBC (Bld) [#/Vol] 5.83 10*3/uL Normal 4.00-10.[address] [facility] Comment on above: Performed By: #### 5 0103 #### [facility] [address] [facility] COMP METABOLIC PANELon 04-25 Albumin [Mass/Vol] 4.3 g/dL Normal 3.5-5.[address] [facility] Comment on above: Performed By: #### 0 0121, [id number] #### [facility] [address] [facility] ALKALINE PHOSPH 86 IU/L Normal 34-[address] [facility] Comment on above: Performed By: #### 0 0121, [id number] #### [facility] [address] [facility] ALT [Catalytic activity/Vol] 18 U/L Normal 7-[address] [facility] Comment on above: Performed By: #### 0 0121, [id number] #### [facility] [address] AST [Catalytic activity/Vol] 18 U/L Normal 13-[address] [facility] Comment on above: Performed By: #### 0 0121, [id number] #### [facility] [address] [place] [address], [place] Bilirubin [Mass/Vol] 0.8 mg/dL Normal 0.3-1.[address] [facility] Comment on above: Performed By: #### 0 0121, [id number] #### [facility] [address] [place] [address], [place] Calcium [Mass/Vol] 9.6 mg/dL Normal 8.6-10.[address] [facility] Comment on above: Performed By: #### 0 0121, [id number] #### [facility] [address] [place] [address], [place] Chloride [Moles/Vol] 103 mmol/L Normal 98-[address] [facility] Comment on above: Performed By: #### 0 012, 04425 #### [facility] [address] [place] [address], [place] CO2 [Moles/Vol] 31 mmol/L Normal 21-[address] [facility] Comment on above: Performed By: #### 0 012, [id number] #### [facility] [address] [place] [address], [place] Creatinine [Mass/Vol] 1.06 mg/dL Normal 0.70-1.[address] [facility] Comment on above: Performed By: #### 0 012, 69942 #### [facility] [address] [place] [address], [place] GFR/1.73 sq M predicted among blacks MDRD (S/P/Bld) [Vol rate/Area] mL/min/{1.73_m2} Normal >[address] [facility] Comment on above: Performed By: #### 0 012, 36632 #### [facility] [address] [place] [address], [facility] GFR/1.73 sq M predicted among non-blacks MDRD (S/P/Bld) [Vol rate/Area] mL/min/{1.73_m2} Normal >[address] [facility] Comment on above: Performed By: #### 0 0121, [id number] #### [facility] [address] [place] [address], [facility] Glucose [Mass/Vol] 101 mg/dL High 70-[address] [facility] Comment on above: Performed By: #### 0 0121, 04860 #### [facility] [address] [place] [address], [facility] Potassium [Moles/Vol] 4.3 mmol/L Normal 3.5-5.[address] [facility] Comment on above: Performed By: #### 0 0121, [id number] #### [facility] [address] [place] [address], [facility] Protein [Mass/Vol] 7.2 g/dL Normal 6.0-8.[address] [facility] Comment on above: Performed By: #### 0 0121, [id number] #### [facility] [address] [place] [address], [facility] Sodium [Moles/Vol] 138 mmol/L Normal 136-[address] [facility] Comment on above: Performed By: #### 0 0121, [id number] #### [facility] [address] [place] [address], [facility] Urea nitrogen [Mass/Vol] 12 mg/dL Normal 7-[address] [facility] Comment on above: Performed By: #### 0 0121, 84820 #### [facility] [address] [place] [address], [facility] LIPID PROFILEon 04-25-2018 Cholesterol [Mass/Vol] 143 mg/dL Normal 120-[address] [facility] Comment on above: Result Comment: CHOL ESTEROL REFERENCE RANGE: 20 YEARS AND OLDER CARDIOVASCULAR RISK Less than 200 mg/dl Low Risk 200 to 239 mg/dl Borderline Risk 240 mg/dl and greater High Risk Performed By: #### 0 0121, [id number] #### [facility] [address] [place] [address], [facility] Cholesterol in HDL [Mass/Vol] 57 mg/dL Normal 23-[address] [facility] Comment on above: Result Comment: Slig ht variation in normal range could be due to gender and/or age. HDL CHOLESTEROL REFERENCE RANGE: 20 years and older Cardiovascular Risk > or =60 mg/dL Desirable 40 TO 59 mg/dL Low Risk <40 mg/dL High Risk Performed By: #### 0 0121, [id number] #### [facility] [address] [place] [address], [facility] Cholesterol in LDL [Mass/Vol] 72 mg/dL Normal 0-[address] [facility] Comment on above: Result Comment: LDL IS A CALCULATION LDL IS ONLY VALID IF THE TRIG IS LESS THAN 400. Performed By: #### 0 0121, 47915 #### [facility] [address] [place] [address], [facility] Cholesterol.total/Chol esterol in HDL [Mass ratio] 2.5 {ratio} Normal .0-4.[address] [facility] Comment on above: Performed By: #### 0 0121, [id number] #### [facility] [address] [place] [address], [facility] NON-HDL CHOLESTEROL 86 mg/dL Normal The [facility] Comment on above: Performed By: #### 0 0121, 91557 #### [facility] [address] [place] [address], [place] Triglyceride [Mass/Vol] 71 mg/dL Normal 40-[address] [facility] Comment on above: Result Comment: TRIG LYCERIDE REFERENCE RANGE: 20 YEARS AND OLDER CARDIOVASCULAR RISK LESS THAN 150 mg/dl LOW RISK 150 TO 199 mg/dl BORDERLINE RISK 200 mg/dl AND GREATER HIGH RISK Performed By: #### 0 0121, [id number] #### [facility] [address] [place] [address], [facility] VLDL CHOL 14 mg/dL Normal 0-[address] [facility] Comment on above: Performed By: #### 0 0121, 09897 #### [facility] [address] [place] [address], [facility] Vital Signs Date Time Vital Sign Value Performing Clinician Facility 11-21-2024 13:17040 Body height 172.7 cm Leonard Ramirez MD Work Phone: [facility] 11-21-2024 13:17040 Body mass index (BMI) [Ratio] 34.94 kg/m2 Leonard Ramirez MD Work Phone: [facility] 11-21-2024 13:17040 Body weight 104.24 kg Leonard Ramirez MD Work Phone: [facility] 11-21-2024 13:17-0400 Diastolic blood pressure 86 mm[Hg] Leonard Ramirez MD Work Phone: [facility] 11-21-2024 13:17-0400 Heart rate 76 /min Leonard Ramirez MD Work Phone: [facility] 11-21-2024 13:17-0400 Systolic blood pressure 130 mm[Hg] Leonard Ramirez MD Work Phone: [facility] 10-18-2024 13:28040 Body height 172.[address] 10-18-2024 13:-040 Body mass index (BMI) [Ratio] 32.39 kg/m2 [address] 10-18-2024 13:040 Body weight 96.[address] 10-18-2024 13:28-0400 Diastolic blood pressure 68 mm[Hg] [address] 10-18-2024 13:28-0400 Systolic blood pressure 114 mm[Hg] Shasta 2 [facility] 05-30-2024 11:05-0500 Blood Pressure Location Cora Lue [facility] 05-30-2024 11:05-0500 Diastolic blood pressure 76 mm[Hg] Cora Lue [facility] 05-30-2024 11:05-0500 Heart rate 80 /min Cora Lue [facility] 05-30-2024 11:05-0500 Systolic blood pressure 132 mm[Hg] Cora Lue [facility] 03-14-2024 14:58-0400 Body height 172.7 cm Leonard Ramirez MD Work Phone: [facility] 03-14-2024 14:58-0400 Body mass index (BMI) [Ratio] 32.39 kg/m2 Leonard Ramirez MD Work Phone: [facility] 03-14-2024 14:58-0400 Body weight 96.62 kg Leonard Ramirez MD Work Phone: [facility] 03-14-2024 14:58-0400 Diastolic blood pressure 64 mm[Hg] Leonard Ramirez MD Work Phone: [facility] 03-14-2024 14:58-0400 Heart rate 78 /min Leonard Ramirez MD Work Phone: [facility] 03-14-2024 14:58-0400 Systolic blood pressure 110 mm[Hg] Leonard Ramirez MD Work Phone: [facility] 09-09-2023 09:03-0400 Diastolic blood pressure 70 mm[Hg] Leonard Ramirez MD Work Phone: [facility] 09-09-2023 09:03-0400 Heart rate 84 /min Leonard Ramirez MD Work Phone: [facility] 09-09-2023 09:03-0400 Systolic blood pressure 118 mm[Hg] Leonard Ramirez MD Work Phone: [facility] 09-09-2023 09:02-0400 Body height 172.7 cm Leonard Ramirez MD Work Phone: [facility] 09-09-2023 09:02-0400 Body mass index (BMI) [Ratio] 32.99 kg/m2 Leonard Ramirez MD Work Phone: [facility] 09-09-2023 09:02-0400 Body weight 98.43 kg Leonard Ramirez MD Work Phone: [facility] 08-25-2023 13:20-0400 Body height 172.7 cm Scar Peck MD Work Phone: [facility] 08-25-2023 13:20-0400 Body mass index (BMI) [Ratio] 32.84 kg/m2 Scar Peck MD Work Phone: [facility] 08-25-2023 13:20-0400 Body temperature 97.5 [degF] Scar Peck MD Work Phone: [facility] 08-25-2023 13:20-0400 Body weight 97.98 kg Scar Peck MD Work Phone: [facility] 08-25-2023 13:20-0400 Diastolic blood pressure 69 mm[Hg] Scar Peck MD Work Phone: [facility] 08-25-2023 13:20-0400 Heart rate 88 /min Scar Peck MD Work Phone: [facility] 08-25-2023 13:20-0400 SaO2% (BldA) [Mass fraction] 98 % Scar Peck MD Work Phone: [facility] 08-25-2023 13:20-0400 Systolic blood pressure 121 mm[Hg] Scar Peck MD Work Phone: [facility] 08-17-2023 11:49-0400 Diastolic blood pressure 70 mm[Hg] Norman Cedeño [facility] 08-17-2023 11:49-0400 Systolic blood pressure 96 mm[Hg] Norman Cedeño [facility] 08-17-2023 11:47-0400 Body height 172.7 cm Norman Cedeño [facility] 08-17-2023 11:47-0400 Body mass index (BMI) [Ratio] 33.94 kg/m2 Norman Cedeño [facility] 08-17-2023 11:47-0400 Body weight 101.24 kg Norman Cedñeo [facility] 08-17-2023 11:47-0400 Heart rate 77 /min Norman Cedeño [facility] 08-11-2023 10:30-0400 Body height 172.7 cm Scar Peck MD Work Phone: [facility] 08-11-2023 10:30-0400 Body mass index (BMI) [Ratio] 33.6 kg/m2 Scar Peck MD Work Phone: [facility] 08-11-2023 10:30-0400 Body temperature 96.8 [degF] Scar Peck MD Work Phone: [facility] 08-11-2023 10:30-0400 Body weight 100.25 kg Scar Peck MD Work Phone: [facility] 08-11-2023 10:30-0400 Diastolic blood pressure 81 mm[Hg] Scar Peck MD Work Phone: [facility] 08-11-2023 10:30-0400 Heart rate 106 /min Scar Peck MD Work Phone: [facility] 08-11-2023 10:30-0400 SaO2% (BldA) [Mass fraction] 99 % Scar Peck MD Work Phone: [facility] 08-11-2023 10:30-0400 Systolic blood pressure 105 mm[Hg] Scar Peck MD Work Phone: [facility] 07-31-2023 14:23-0400 Body temperature 97.9 [degF] Juan J Foley MD Work Phone: [facility] 07-31-2023 14:23-0400 Diastolic blood pressure 59 mm[Hg] Juan J Foley MD Work Phone: [facility] 07-31-2023 14:23-0400 Heart rate 82 /min Juan J Foley MD Work Phone: [facility] 07-31-2023 14:23-0400 SaO2% (BldA) [Mass fraction] 98 % Juan J Foley MD Work Phone: [facility] 07-31-2023 14:23-0400 Systolic blood pressure 109 mm[Hg] Juan J Foley MD Work Phone: [facility] 07-31-2023 05:35-0400 Respiratory rate 18 /min Juan J Foley MD Work Phone: [facility] 07-31-2023 05:00-0400 Body mass index (BMI) [Ratio] 35.4 kg/m2 Juan J Foley MD Work Phone: [facility] 07-31-2023 05:00-0400 Body weight 105.6 kg Juan J Foley MD Work Phone: [facility] 07-26-2023 07:14-0400 Body temperature Juan J Og MD Work Phone: [facility] 07-26-2023 07:14-0400 SaO2% (BldA) [Mass fraction] 100 % Juan J Foley MD Work Phone: [facility] 07-26-2023 07:14-0400 SaO2% (BldA) [Mass fraction] Juan J Foley MD Work Phone: [facility] 07-26-2023 06:59-0400 Body temperature Juan J Foley MD Work Phone: [facility] 07-26-2023 06:59-0400 SaO2% (BldA) [Mass fraction] 100 % Juan J Foley MD Work Phone: [facility] 07-25-2023 19:32-0400 Body temperature Juan J Foley MD Work Phone: [facility] 07-25-2023 19:32-0400 SaO2% (BldA) [Mass fraction] 99 % Juan J Foley MD Work Phone: [facility] 07-25-2023 14:55-0400 Body temperature Juan J Foley MD Work Phone: [facility] 07-25-2023 14:55-0400 SaO2% (BldA) [Mass fraction] 100 % Juan J Foley MD Work Phone: [facility] 07-25-2023 11:51-0400 Body temperature Juan J Foley MD Work Phone: [facility] 07-25-2023 11:51-0400 SaO2% (BldA) [Mass fraction] 100 % Juan J Foley MD Work Phone: [facility] 07-25-2023 11:25-0400 Body temperature Juan J Foley MD Work Phone: [facility] 07-25-2023 11:25-0400 SaO2% (BldA) [Mass fraction] 100 % Juan J Foley MD Work Phone: [facility] 07-25-2023 10:48-0400 Body temperature Juan J Foley MD Work Phone: [facility] 07-25-2023 10:48-0400 SaO2% (BldA) [Mass fraction] 100 % Juan J Foley MD Work Phone: [facility] 07-25-2023 10:28-0400 Body temperature Juan J Foley MD Work Phone: [facility] 07-25-2023 10:18-0400 Body temperature Juan J Foley MD Work Phone: [facility] 07-25-2023 10:18-0400 SaO2% (BldA) [Mass fraction] 100 % Juan J Foley MD Work Phone: [facility] 07-25-2023 08:50-0400 Body temperature Juan J Foley MD Work Phone: [facility] 07-19-2023 02:22-0500 Body height 172.7 cm Juan J Foley MD Work Phone: [facility] 05-25-2023 11:13-0500 Blood Pressure Location Cora Jesus [facility] 05-25-2023 11:13-0500 Diastolic blood pressure 86 mm[Hg] Cora Lee [facility] 05-25-2023 11:13-0500 Heart rate 84 /min Cora Lee [facility] 05-25-2023 11:13-0500 Systolic blood pressure 128 mm[Hg] Cora Lue [facility] 10-27-2022 09:33-0400 Blood Pressure Location Cora Lue [facility] 10-27-2022 09:33-0400 Diastolic blood pressure 70 mm[Hg] Cora Lue [facility] 10-27-2022 09:33-0400 Heart rate 75 /min Cora Lue [facility] 10-27-2022 09:33-0400 Systolic blood pressure 125 mm[Hg] Cora Lue [facility] 04-28-2022 11:20-0500 Blood Pressure Location Cora Lue [facility] 04-28-2022 11:20-0500 Diastolic blood pressure 76 mm[Hg] Cora Lue [facility] 04-28-2022 11:20-0500 Heart rate 68 /min Cora Lue [facility] 04-28-2022 11:20-0500 Respiratory rate 16 /min Cora Lue [facility] 04-28-2022 11:20-0500 Systolic blood pressure 128 mm[Hg] Cora Lue [facility] 03-15-2022 10:30-0400 Diastolic blood pressure 66 mm[Hg] Bianca Phan DO Work Phone: [facility] 03-15-2022 10:30-0400 Heart rate 70 /min Bianca Phan DO Work Phone: [facility] [employer] 03-15-2022 10:30-0400 Respiratory rate 18 /min Bianca Phna DO Work Phone: [facility] [employer] 03-15-2022 10:30-0400 SaO2% (BldA) [Mass fraction] 96 % Bianca Phan DO Work Phone: [facility] [employer] 03-15-2022 10:30-0400 Systolic blood pressure 113 mm[Hg] Bianca Phan DO Work Phone: [facility] [employer] 03-15-2022 10:10-0400 Body temperature 97.2 [degF] Bianca Phan DO Work Phone: [facility] [employer] 03-15-2022 09:00-0400 Body height 175.3 cm Bian[facility] Phan DO [facility] 03-15-2022 09:00-0400 Body mass index (BMI) [Ratio] 35.59 kg/m2 Bianca Phan DO Work Phone: [facility] [employer] 03-15-2022 09:00-0400 Body weight 109.32 kg Bianca Phan DO Work Phone: [facility] 12-23-2021 08:06-0400 Blood Pressure Location Cora Danielse [facility] 12-23-2021 08:06-0400 Diastolic blood pressure 134 mm[Hg] Cora Danielse [facility] 12-23-2021 08:06-0400 Heart rate 98 /min Cora Danielse [facility] 12-23-2021 08:06-0400 Systolic blood pressure 149 mm[Hg] Cora Lue [facility] 11-18-2021 10:40-0400 Blood Pressure Location Cora Lue [facility] 11-18-2021 10:40-0400 Diastolic blood pressure 72 mm[Hg] Cora Lue [facility] 11-18-2021 10:40-0400 Heart rate 68 /min Cora Lue [facility] 11-18-2021 10:40-0400 Systolic blood pressure 127 mm[Hg] Cora Lue [facility] 09-14-2021 14:21-0400 Blood Pressure Location Cora Lue [facility] 09-14-2021 14:21-0400 Diastolic blood pressure 78 mm[Hg] Cora Lue [facility] 09-14-2021 14:21-0400 Heart rate 72 /min Cora Lue [facility] 09-14-2021 14:21-0400 Respiratory rate 16 /min Cora Lue [facility] 09-14-2021 14:21-0400 Systolic blood pressure 123 mm[Hg] Cora Lee [facility] Encounters Encounter Date Encounter Type Care Provider Facility Start: 02-27-2025 ambulatory GEOVANNY SHAMCO Facility:[facility] Start: 11-28-2024 End: 11-28-2024 [facility] Start: 11-28-2024 End: 11-28-2024 Patient encounter procedure Cora Lee [facility] Start: 11-21-2024 End: 11-21-2024 Office outpatient visit 15 minutes Leonard Ramirez MD Work Phone: [facility] Comment on above: Multi-vessel coronar y artery stenosis (Primary Dx); Postoperative atrial fibrillation (Multi); Mixed hyperlipidemia; BMI 34.0-34.9,adult; Never smoked tobacco; Coronary artery disease of [place] artery [place] heart with stable angina pectoris Start: 11-21-2024 End: 11-21-2024 [facility]ulatory Start: 10-18-2024 End: 10-18-2024 Subsequent hospital visit by physician Shasta Red Echo/Vasc Room 2 [facility] Comment on above: Multi-vessel coronar y artery stenosis; Mixed hyperlipidemia; Postoperative atrial fibrillation (Multi) Start: 10-18-2024 End: 10-18-2024 [facility] Start: 05-30-2024 End: 05-30-2024 ambulatory [facility] Facility:[facility] Start: 05-30-2024 End: 05-30-2024 Patient encounter procedure Cora Lee [facility] Start: 03-14-2024 End: 03-14-2024 Office outpatient visit 15 minutes Leonard Ramirez MD Work Phone: [facility] Comment on above: Multi-vessel coronar y artery stenosis (Primary Dx); Mixed hyperlipidemia; Postoperative atrial fibrillation (Multi); BMI 32.0-32.9,adult; Coronary artery disease of [place] artery of [place] heart with stable angina pectoris Start: 03-14-2024 End: 03-14-2024 ambulatory [facility] Ambulatory Start: 09-09-2023 End: 09-09-2023 Office outpatient new 45 minutes Leonard Ramirez MD Work Phone: [facility] Comment on above: Multi-vessel coronar y artery stenosis (Primary Dx); High risk medication use; Mixed hyperlipidemia; Persistent atrial fibrillation (Multi); Anticoagulated; Pleural effusion Start: 08-25-2023 End: 08-25-2023 Postop follow up visit related to original px Scar Peck MD Work Phone: [facility] Comment on above: Pleural effusion (Pr imary Dx) Start: 08-25-2023 End: 08-25-2023 Subsequent hospital visit by physician Shasta X-Ray 2 [facility] Comment on above: S/P CABG x 4 Start: 08-17-2023 End: 08-17-2023 Professional / ancillary services management Norman Cedeño MA [facility] Comment on above: Shortness of breath; Dizziness Start: 08-11-2023 End: 08-11-2023 Postop follow up visit related to original px Scar Peck MD Work Phone: [facility] Comment on above: S/P CABG x 4 Start: 07-25-2023 End: 07-25-2023 Subsequent hospital visit by physician Shasta [facility] [place] Comment on above: Arrived Start: 07-19-2023 End: 07-31-2023 Evaluation and management of inpatient Juan J Foley MD Work Phone: [facility] 8 Cardiac Intensive Care Start: 07-19-2023 End: 07-31-2023 Patient encounter status Juan J Foley MD Work Phone: [facility] Work Phone: Start: 07-17-2023 End: 07-19-2023 Evaluation and management of inpatient Geovannymorris Merrill Facility:[facility] Start: 05-25-2023 End: 05-25-2023 Patient encounter procedure Cora Lee [facility] Start: 05-04-2023 End: 05-04-2023 Patient encounter procedure Cora Lee [facility] Start: 10-27-2022 End: 10-27-2022 Patient encounter procedure Cora Lee [facility] Start: 07-18-2022 Encounter for genera l adult medical examination without abnormal findings DR DANIELE HERNANDEZ [facility] Start: 07-13-2022 End: 07-14-[address] DANIELE HERNANDEZ Facility:[facility] Start: 07-13-2022 End: 07-14-2022 Encounter for general adult medical examination without abnormal findings DR DANIELE HERNANDEZ Facility:[facility] Start: 04-28-2022 End: 04-28-2022 Patient encounter procedure oCra Lee [facility] Start: 04-22-2022 End: 04-23-2022 ambulatory CORA Nelson Facility:[facility] Start: 03-15-2022 End: 03-15-2022 ambulatory SR DANIELE HERNANDEZ [facility] Start: 03-15-2022 End: 03-15-2022 Subsequent hospital visit by physician Bianca Phan DO Work Phone: [facility] [place] Start: 03-05-2022 ambulatory BIANCA PHAN [facility] Start: 12-23-2021 End: 12-23-2021 Patient encounter procedure Cora Lee [facility] Start: 12-07-2021 End: 12-07-2021 Patient encounter procedure DO Daniele Hernandez Work Phone: [facility] [place] Start: 11-18-2021 End: 11-18-2021 Patient encounter procedure Cora Lee [facility] Start: 10-27-2021 End: 10-28-2021 ambulatory CORA LEE . Facility:[facility] Start: 09-14-2021 End: 09-14-2021 Patient encounter procedure Cora JemOmar Lee [facility] Start: 08-20-2021 End: 08-21-2021 ambulatory [...] lds trcg only w/o i&r Maryanne You TRIAL MANAGEMENT ASSOCIATE-COMMUNICATION EQUIPMENT REPAIRER Work Phone: Start: 07-31-2023 Glucose quantitative blood xcpt reagent strip Scar Peck MD Work Phone: Start: 07-31-2023 Radiologic exam ches t 2 views Maryanne You TRIAL MANAGEMENT ASSOCIATE-COMMUNICATION EQUIPMENT REPAIRER Work Phone: Start: 07-31-2023 Comprehensive metabo lic panel Maryanne You TRIAL MANAGEMENT ASSOCIATE-COMMUNICATION EQUIPMENT REPAIRER Work Phone: Start: 07-30-2023 Glucose quantitative blood xcpt reagent strip Scar Peck MD Work Phone: Start: 07-30-2023 Glucose quantitative blood xcpt reagent strip Scar Peck MD Work Phone: Start: 07-30-2023 Ecg routine ecg w/le ast 12 lds trcg only w/o i&r Maryanne Arreguin Carl TRIAL MANAGEMENT ASSOCIATE-COMMUNICATION EQUIPMENT REPAIRER Work Phone: Start: 07-30-2023 Glucose quantitative blood xcpt reagent strip Scar Peck MD Work Phone: Start: 07-30-2023 Renal function panel Ra trejo Kallie You TRIAL MANAGEMENT ASSOCIATE-COMMUNICATION EQUIPMENT REPAIRER Work Phone: Start: 07-30-2023 Radiologic exam ches t single view Maryanne You TRIAL MANAGEMENT ASSOCIATE-COMMUNICATION EQUIPMENT REPAIRER Work Phone: Start: 07-29-2023 Glucose quantitative blood xcpt reagent strip Scar Peck MD Work Phone: Start: 07-29-2023 Ecg routine ecg w/le ast 12 lds trcg only w/o i&r Maryanne L Carl TRIAL MANAGEMENT ASSOCIATE-COMMUNICATION EQUIPMENT REPAIRER Work Phone: Start: 07-29-2023 Glucose quantitative blood xcpt reagent strip Scar Peck MD Work Phone: Start: 07-29-2023 Glucose quantitative blood xcpt reagent strip Scar Peck MD Work Phone: Start: 07-29-2023 Ecg routine ecg w/le ast 12 lds trcg only w/o i&r Maryanne Kallie You TRIAL MANAGEMENT ASSOCIATE-COMMUNICATION EQUIPMENT REPAIRER Work Phone: Start: 07-29-2023 Glucose quantitative blood xcpt reagent strip Apolinar Forbes MD Work Phone: Start: 07-29-2023 Radiologic exam ches t single view Maryanne You TRIAL MANAGEMENT ASSOCIATE-COMMUNICATION EQUIPMENT REPAIRER Work Phone: Start: 07-29-2023 Renal function panel Ra neli You TRIAL MANAGEMENT ASSOCIATE-COMMUNICATION EQUIPMENT REPAIRER Work Phone: Start: 07-28-2023 Glucose quantitative blood [...] lds trcg only w/o i&r Maryanne You TRIAL MANAGEMENT ASSOCIATE-COMMUNICATION EQUIPMENT REPAIRER Work Phone: Start: 07-28-2023 Radiologic exam ches t single view Maryanne You TRIAL MANAGEMENT ASSOCIATE-COMMUNICATION EQUIPMENT REPAIRER Work Phone: Start: 07-28-2023 End: 07-28-2023 Renal function panel Maryanne You TRIAL MANAGEMENT ASSOCIATE -COMMUNICATION EQUIPMENT REPAIRER Work Phone: Start: 07-27-2023 Glucose quantitative blood [...] trcg only w/o i&r Maryanne L You TRIAL MANAGEMENT ASSOCIATE-COMMUNICATION EQUIPMENT REPAIRER Work Phone: Start: 07-27-2023 Ecg routine ecg w/le ast 12 lds trcg only w/o i&r Apolinar Forbes MD Work Phone: Start: 07-27-2023 Radiologic exam ches t single view Maryanne You TRIAL MANAGEMENT ASSOCIATE-COMMUNICATION EQUIPMENT REPAIRER Work Phone: Start: 07-27-2023 Renal function panel Da amanuel Quintero TRIAL MANAGEMENT ASSOCIATE-COMMUNICATION EQUIPMENT REPAIRER, DNP Work Phone: Start: 07-26-2023 Glucose quantitative blood xcpt reagent strip Apolinar Forbes MD Work Phone: Start: 07-26-2023 Glucose quantitative blood xcpt reagent strip Apolinar Forbes MD Work Phone: Start: 07-26-2023 Radiologic exam ches t single view Maryanne Arreguin Carl TRIAL MANAGEMENT ASSOCIATE-COMMUNICATION EQUIPMENT REPAIRER Work Phone: Start: 07-26-2023 Glucose quantitative blood xcpt reagent strip Apolinar Forbes MD Work Phone: Start: 07-26-2023 Glucose quantitative blood xcpt reagent strip Apolinar Forbes MD Work Phone: Start: 07-26-2023 Ecg routine ecg w/le ast 12 lds trcg only w/o i&r Maryanne You TRIAL MANAGEMENT ASSOCIATE-COMMUNICATION EQUIPMENT REPAIRER Work Phone: Start: 07-26-2023 Radiologic exam ches t single view Maryanne You TRIAL MANAGEMENT ASSOCIATE-COMMUNICATION EQUIPMENT REPAIRER Work Phone: Start: 07-26-2023 End: 07-26-2023 Renal function panel Apolinar rodriguez MD Work Phone: Start: 07-26-2023 Glucose quantitative blood xcpt reagent strip Apolinar Forbes MD Work Phone: Start: 07-25-2023 End: 07-25-2023 Chloride bld Delilah Quintero APR N-COMMUNICATION EQUIPMENT REPAIRER, DNP Work Phone: Start: 07-25-2023 Assay of lactate Sandra Forbes MD Work Phone: Start: 07-25-2023 Glucose quantitative blood xcpt reagent strip Apolinar Forbes MD Work Phone: Start: 07-25-2023 Radiologic exam ches t single view Delilah Quintero TRIAL MANAGEMENT ASSOCIATE-COMMUNICATION EQUIPMENT REPAIRER, DNP Work Phone: Start: 07-25-2023 Ecg routine ecg w/le ast 12 lds trcg only w/o i&r Joanna F Olive TRIAL MANAGEMENT ASSOCIATE-COMMUNICATION EQUIPMENT REPAIRER Work Phone: Start: 07-25-2023 End: 07-25-2023 Chloride bld Joanna F Olive TRIAL MANAGEMENT ASSOCIATE-COMMUNICATION EQUIPMENT REPAIRER Work Phone: Start: 07-25-2023 Gases blood ph direc t crow xcpt pulse oximitry Joanna F Olive TRIAL MANAGEMENT ASSOCIATE-COMMUNICATION EQUIPMENT REPAIRER Work Phone: Start: 07-25-2023 PULSE OXIMETRY, CONTINUOUS Joanna F Olive TRIAL MANAGEMENT ASSOCIATE-COMMUNICATION EQUIPMENT REPAIRER Work Phone: Start: 07-25-2023 End: 07-25-2023 Coagulation [...] 07-25-2023 Comprehensive metabo lic panel Magalis Mc TRIAL MANAGEMENT ASSOCIATE-COMMUNICATION EQUIPMENT REPAIRER Work Phone: Start: 07-25-2023 EXTRA TUBES Attila good MD Work Phone: Start: 07-25-2023 SST TOP Attila good MD Work Phone: Start: 07-24-2023 VERAB/VERIFY ABORH Laina Salgado MD Work Phone: Start: 07-24-2023 Ecg routine ecg w/le ast 12 lds trcg only w/o i&r Magalis Mc TRIAL MANAGEMENT ASSOCIATE-COMMUNICATION EQUIPMENT REPAIRER Work Phone: Start: 07-24-2023 Blood typing serolog ic rh (d) Magalis Henderson Komosa TRIAL MANAGEMENT ASSOCIATE-COMMUNICATION EQUIPMENT REPAIRER Work Phone: Start: 07-24-2023 PREPARE RBC Magalis Henderson Komosa TRIAL MANAGEMENT ASSOCIATE-COMMUNICATION EQUIPMENT REPAIRER Work Phone: Start: 07-24-2023 Basic metabolic pane l calcium total Attila Salgado MD Work Phone: Start: 07-23-2023 Ecg routine ecg w/le ast 12 lds trcg only w/o i&r Eduardo Ferro TRIAL MANAGEMENT ASSOCIATE-COMMUNICATION EQUIPMENT REPAIRER Work Phone: Start: 07-23-2023 Heparin assay Attila gardner MD Work Phone: Start: 07-22-2023 Ecg routine ecg w/le ast 12 lds trcg only w/o i&r Eduardo Ferro TRIAL MANAGEMENT ASSOCIATE-COMMUNICATION EQUIPMENT REPAIRER Work Phone: Start: 07-22-2023 End: 07-22-2023 Blood count complete automated Attila Salgado MD Work Phone: Start: 07-22-2023 EXTRA TUBES Attila good MD Work Phone: Start: 07-22-2023 PST TOP Attila good MD Work Phone: Start: 07-22-2023 SST TOP Attila good MD Work Phone: Start: 07-21-2023 Ecg routine ecg w/le ast 12 lds trcg only w/o i&r Eduardoapolinar Ferro TRIAL MANAGEMENT ASSOCIATE-COMMUNICATION EQUIPMENT REPAIRER Work Phone: Start: 07-21-2023 Basic metabolic pane [...] lds trcg only w/o i&r Eduardo Ferro TRIAL MANAGEMENT ASSOCIATE-COMMUNICATION EQUIPMENT REPAIRER Work Phone: Start: 07-20-2023 Basic metabolic pane l calcium total Anjum Nieto MD Work Phone: Start: 07-20-2023 EXTRA TUBES Attila good MD Work Phone: Start: 07-20-2023 SST TOP Attila good MD Work Phone: Start: 07-20-2023 Thyrotropin [Units/volume] in Serum or Plasma Shasta Marcus Start: 07-19-2023 EXTRA URINE GRIFFITH TUBE R achel Kallie You TRIAL MANAGEMENT ASSOCIATE-COMMUNICATION EQUIPMENT REPAIRER Work Phone: Start: 07-19-2023 Urinalysis complete W Reflex Culture panel - Urine Maryanne You TRIAL MANAGEMENT ASSOCIATE-COMMUNICATION EQUIPMENT REPAIRER Work Phone: Start: 07-19-2023 Urnls dip stick/tabl et rgnt auto w/o microscopy Maryanne You TRIAL MANAGEMENT ASSOCIATE-COMMUNICATION EQUIPMENT REPAIRER Work Phone: Start: 07-19-2023 EXTRA TUBES Attila good MD Work Phone: Start: 07-19-2023 Lipid panel Attila good MD Work Phone: Start: 07-19-2023 PST TOP Attila good MD Work Phone: Start: 07-19-2023 SST TOP Attila good MD Work Phone: Start: 07-19-2023 Duplex scan extracranial art compl bi study Maryanne You TRIAL MANAGEMENT ASSOCIATE-[facility] Work Phone: Start: 07-19-2023 Radiologic exam ches t 2 views Maryanne You TRIAL MANAGEMENT ASSOCIATE-COMMUNICATION EQUIPMENT REPAIRER Work Phone: Start: 07-19-2023 Ct thorax w/o contra st material Maryanne You TRIAL MANAGEMENT ASSOCIATE-COMMUNICATION EQUIPMENT REPAIRER Work Phone: Start: 07-19-2023 Echo tthrc r-t 2d w/wom-mode compl spec&colr d Eduardo Ferro TRIAL MANAGEMENT ASSOCIATE-[facility] Work Phone: Start: 07-19-2023 Ecg routine ecg [...] above: Performed By: #### P SAD #### [facility] [address] [address] [address] Jurgen Nunn Appendectomy Cora Lee Bypass [...] Activity Detail Author Start: 07-18-2028 Lipid panel [facility] Start: 08-27-2025 End: 08-27-2025 Patient encounter procedure 08/27/2025 2:40 PM EDT Office Visit [address] [id number] Leonard Ramirez MD [address] [facility], [facility] [address] [place] [address] [facility] Start: 01-14-2025 Influenza vaccination Influenza Vaccine (#1) [facility] Start: 11-21-2024 End: 11-21-2024 Patient encounter procedure 11/21/2024 1:30 PM EDT Office Visit [address] [place] [address] Leonard Ramirez MD [address] [facility], [place] [address] [place] [address] [facility] Start: 10-18-2024 End: 10-18-2024 Patient encounter procedure 10/18/2024 1:30 PM EDT [facility] [address] [place] [phone] Dave [facility] Start: 07-30-2024 Diabetes mellitus screening [facility] Start: 07-25-2024 Diabetes mellitus screening Diabetes Screening [facility] Start: 07-19-2024 Thyroid stimulating hormone measurement [facility] Start: 03-14-2024 End: 03-14-2024 Patient encounter procedure 03/14/2024 2:40 PM EDT Office Visit [facility] [address] [place] [phone] Leonard Ramirez MD [address] [place] [address] [facility] Start: 03-14-2024 End: 03-14-2025 Alanine aminotransferase [Enzymatic activity/volume] in Serum or Plasma by With P-5'-P Alanine Aminotransferase Lab Routine Mixed hyperlipidemia Expected: 03/14/2024 (Approximate), Expires: 03/14/2025 [facility] Work Phone: Comment on above: Expected: 03/14/2024 (Approximate), Expi res: 03/14/2025 Start: 03-14-2024 End: 03-14-2025 Aspartate aminotransferase [Enzymatic activity/volume] in Serum or Plasma by With P-5'-P Aspartate Aminotransferase Lab Routine Mixed hyperlipidemia Expected: 03/14/2024 (Approximate), Expires: 03/14/2025 [facility] Work Phone: Comment on above: Expected: 03/14/2024 (Approximate), Expi res: 03/14/2025 Start: 03-14-2024 End: 03-14-2025 Basic metabolic 2000 panel - Serum or Plasma Basic Metabolic Panel Lab Routine Multi-vessel coronary artery stenosis Expected: 03/14/2024 (Approximate), Expires: 03/14/2025 [facility] Work Phone: Comment on above: Expected: 03/14/2024 (Approximate), Expi res: 03/14/2025 Start: 03-14-2024 End: 03-14-2025 Lipid 1996 panel - Serum or Plasma Lipid Panel Lab Routine Mixed hyperlipidemia Expected: 03/14/2024 (Approximate), Expires: 03/14/2025 [facility] Work Phone: Comment on above: Expected: 03/14/2024 (Approximate), Expi res: 03/14/2025 Start: 03-14-2024 End: 03-14-2026 US Heart Transthoracic Transthoracic Echo Complete Echocardiography Routine Multi-vessel coronary artery stenosis Mixed hyperlipidemia Postoperative atrial fibrillation (Multi) Expected: 03/14/2024 (Approximate), Expires: 03/14/2026 [facility] Service Area Work Phone: Comment on above: Expected: 03/14/2024 (Approximate), Expi res: 03/14/2026 Start: 03-09-2024 Yearly Adult Physical Yearly Adult Physical [facility] Start: 01-15-2024 COVID-19 Vaccine ( season) COVID-19 Vaccine ( season) [facility] Start: 01-15-2024 Influenza vaccination Influenza Vaccine (#1) [facility] Start: 09-09-2023 End: 09-09-2023 Patient encounter procedure 09/09/2023 9:00 AM EDT Office Visit [facility] [address] [facility] [address] [place] [address] Leonard Ramirez [facility] [address] [facility] [address] [place] [address] [facility] Start: 08-25-2023 End: 08-25-2023 Patient encounter procedure 08/25/2023 1:20 PM EDT Office Visit [facility] [address] [place] [address] [place] [address] [address] Department [place] [address] [facility] Start: 01-14-2023 COVID-19 Vaccine ( season) COVID-19 Vaccine ( season) [facility] Start: 01-14-2023 [facility] Start: 03-15-2022 End: 03-15-2022 Xcapsl ctrc rmvl insj io lens prosth w/o ecp EYE CATARACT EMULSIFICATION IOL IMPLANT Combined forms of age-related cataract of right eye 03/15/2022 9:45 AM T [facility] Start: 12-14-2021 Influenza vaccination Flu vaccine (#1) [facility] Start: 2021 RSV High Risk: (Elderly (60+) or Population) (1 - Risk 60-74 years 1-dose series) RSV High Risk: (Elderly (60+) or Population) (1 - Risk 60-74 years 1-dose series) [facility] Start: 2021 RSV patients and/or patients aged 60+ years (1 - 1-dose 60+ series) RSV patients and/or patients aged 60+ years (1 - 1-dose 60+ series) [facility] Start: 09-22-2011 Zoster Vaccines (1 of 2) Zoster Vaccines (1 of 2) [facility] Start: 09-22-2011 [facility] Start: 09-22-1983 DTaP/Tdap/Td Vaccines (1 - Tdap) DTaP/Tdap/Td Vaccines (1 - Tdap) [facility] Start: 09-22-1983 [facility] Start: 1980 DTaP/Tdap/Td vaccine (1 - Tdap) DTaP/Tdap/Td vaccine (1 - Tdap) [facility] Start: 09-22-1979 Hepatitis C screening [facility] Start: 1962 MMR Vaccines (1 of 1 - Standard series) MMR Vaccines (1 of 1 - Standard series) [facility] Start: 1962 [facility] Start: 03-24-1962 COVID-19 Vaccine (#1) COVID-19 Vaccine (#1) [facility] Start: 1961 HIV screening [facility] Start: 1961 Screening for malignant neoplasm of colon [facility] Start: 1961 Yearly Adult Physical Yearly Adult Physical [facility] Start: 1961 [facility] End: 07-25-2023 Determination of physical activity tolerance [facility] Work Phone: ECG 12 lead [facility] Work Phone: ECG 12 Lead ECG 12 Lead ECG Routine Shortness of breath Dizziness 08/17/2023 8:53 AM EDT [facility] Work Phone: Glucose [Mass/volume ] in Serum or Plasma [facility] Work Phone: End: 07-25-2023 Incentive spirometry Instruct [facility] Work Phone: End: 03-15-2022 INITIATE PACU OXYGEN THERAPY PROTOCOL Initiate PACU Oxygen Therapy Protocol Respiratory Care Routine Continuous until discontinued starting 03/15/2022 [facility] [place] Comment on above: Continuous until discontinued starting 1 Oxygen therapy [Mini mum Data Set] Initiate Oxygen Therapy Protocol Respiratory Care Routine Daily until discontinued starting 03/15/2022 [employer] ([facility]) Work Phone: Comment on above: Daily until discontinued starting 2021 Oxygen therapy [Mini mum Data Set] Initiate Oxygen Therapy Protocol Respiratory Care Routine Daily until discontinued starting 03/15/2022 [employer] (ABAM) Work Phone: Comment on above: Daily until discontinued starting 2021 End: 10-18-2024 US Heart Transthoracic [facility] Work Phone: Comment on above: Once for 1 Occurrences starting 10/19/19 until 10/18/2024 End: 08-25-2023 XR Chest 2 Views [facility] Work Phone: Comment on above: Once for 1 Occurrences starting 04 until 08/25/2023 Immunizations Immunization Date Immunization Notes Care Provider Julia ames 03-29-2024 Influenza, injectabl e, Amberly Quintero Canine Kidney, preservative free, quadrivalent Leonard Ramirez MD Work Phone: [facility] 03-29-2024 influenza virus vaccine, unspecified formulation Leonard Ramirez MD Work Phone: [facility] Work Phone: 03-28-2023 influenza virus vaccine, unspecified formulation Coradarwin Lee [facility] 03-28-2023 influenza, injectabl e, quadrivalent, preservative free Leonard Ramirez MD Work Phone: [facility] Work Phone: 03-28-2023 pneumococcal 20-yvan nt conjugate vaccine Cora Lee [facility] 04-01-2022 influenza virus vaccine, unspecified formulation Coradarwin Lee [facility] 04-01-2022 influenza, injectabl e, quadrivalent, preservative free Leonard Ramirez MD Work Phone: [facility] Work Phone: 04-29-2021 SARS-CoV-2 (COVID-19 ) mRNA-4033 vaccine Cora Lumichael [facility] 04-10-2021 influenza virus vaccine, unspecified formulation Cora Lee [facility] 04-10-2021 influenza, injectabl e, quadrivalent, preservative free Leonard Ramirez MD Work Phone: [facility] Work Phone: 10-08-2020 SARS-CoV-2 (COVID-19 ) mRNA-1273 vaccine Cora Lue [facility] 09-12-2020 SARS-CoV-2 (COVID-19 ) mRNA-1273 vaccine Cora Lue [facility] 05-16-2020 SARS-CoV-2 (COVID-19 ) mRNA-1273 vaccine Ocra Lue [facility] Payers Date Payer Category Payer Self-pay [id number] 2022 Medicaid [id number] 2020 Medicaid (Managed Care) 1.2. [id number] 2020 Unknown [id number] 1961 Unknown [id number] 1961 Unknown [id number] 2.16.84 [id number] 1961 Unknown [id number] 2.16.84 [id number] 1961 Unknown [id number] 2.16.84 0.1.094913.3.579.2.593 1961 Unknown [id number] 2.16.84 [id number] 1961 Unknown [id number] [id number] 1961 Unknown [id number] 2.16.840.1.054321.3.579.2.727 1961 Unknown [id number] 2.16.840.1.565086.3.579.2.727 1961 Unknown [id number] 2.16.840.1.120261.3.579.2.727 1961 Unknown [id number] [id number] 1961 Unknown [id number] 2.16.840.1.520576.3.579.2.1244 1961 Unknown [id number] [id number] 1959 Medicaid [id number] Unknown [employer] BC/BS [id number] Unknown [id number] Social History Date Type Detail Facility Start: 09-14-2021 End: 11-28-2024 Tobacco smoking status Never smoked tobacco (finding) [facility] Start: 07-19-2023 End: 07-26-2023 Sex Assigned At Male [facility] Start: 1960 Sex Assigned At Male [facility] Start: 03-15-2022 Alcohol intake Ex-drinker (finding) [facility] Work Phone: Start: 1960 Sex Assigned At Not on file [facility] Phone: Start: 03-05-2022 End: 10-18-2024 Exposure to SARS-CoV-2 (event) Not sure [facility] Tobacco smoking status Never [facility] Start: 07-19-2023 Tobacco use and exposure Smoke less tobacco non-user [facility] Work Phone: Start: 07-19-2023 End: 07-26-2023 History of Social function [facility] Work Phone: How often to you hav e a drink containing alcohol? Monthly or less [facility] Work Phone: How many standard dr inks containing alcohol do you have on a typical day? 1 or 2 [facility] Work Phone: How often do you hav e 6 or more drinks on 1 occasion? Monthly [facility] Work Phone: How hard is it for y ou to pay for the very basics like food, housing, medical care, and heating Not very hard [facility] Work Phone: At any time in the p ast 12 months, were you homeless or living in long-term [including now]? No [facility] Work Phone: Start: 08-17-2023 End: 11-21-2024 Alcohol intake Current drinker of alcohol (finding) [facility] Work Phone: Start: 08-11-2023 Alcohol Comment occasional [facility] Work Phone: How often do you hav e 6 or more drinks on 1 occasion? Monthly [facility] Work Phone: Sexual Orientation [facility] Sex Male (finding) [facility] Medical Equipment Procedure Code Equipment Code Equipment Origin al Text Equipment Identifier Dates Lens Iol Envista Mx60 22.5d - [id number] Start: 09-04-2018 Lens Intraocular Bcnvx +22.5 Diopt 6x12.5 Mm Envista - [id number] Start: 03-15-2022 [id number] Start: 07-25-2023 Functional Status Date Assessment Result Facility 05-30-2024 Functional Status N/A [facility] 05-25-2023 Functional Status N/A [facility] 10-27-2022 Functional Status N/A [facility] 04-28-2022 Functional Status N/A [facility] 12-23-2021 Functional Status N/A [facility] 11-18-2021 Functional Status N/A [facility] Clinical Notes 09-14-2021 to 11-28-2024 Leonard Ramirez [...] treatment? Where to find more information The [place] [employer]: www.cancer.org [place] [employer] Association: www.auanet.org Contact a health care [...] provider. Document Revised: 10/26/2021 Document Reviewed: 10/26/2021 [employer] Patient Education 2023 [employer]. Follow Up Care 11/27/2024 15:55:34 With:Jesus ROD, OFELIA Friedman, URO Address: [address], [place] [phone] When: Unknown Comments:3 mos w/ PSA [facility] 11-28-2024 Note Patient Education Oncology Prostate [...] Where to find more information ??? The [place] [employer]: www.cancer.org ??? [place] [employer] Association: www.auanet.org Contact a health care [...] The prostate gland (more content not included)... [facility] 11-21-2024 History of Present illness Narrative [...] reports his lab work was done at [facility] but the result is not available to [...] smoked tobacco 6. Coronary artery disease of [place] artery of [place] heart with stable angina pectoris aspirin 81 [...] discussion and plan. documented in this encounter [facility] Work Phone: 11-21-2024 Instructions Jessica Gonzales LPN [...] be sent through Care Everywhere.Heart Healthy Diet ([place]an)documented in this encounter [facility] Work Phone: 05-30-2024 Hospital Discharge instructions Patient [...] treatment? Where to find more information The [place] [employer]: www.cancer.org [place] [employer] Association: www.auanet.org Contact a health care [...] provider. Document Revised: 10/26/2021 Document Reviewed: 10/26/2021 [employer] Patient Education 2023 [employer]. Follow Up Care 05/25/2023 11:52:08 With:Jesus ROD, Cora Gupta, URL, URO Address: When: Unknown Comments:Pending MRI [facility] 05-30-2024 Note Patient Education Oncology Prostate Cancer [...] Where to find more information ??? The [place] [employer]: www.cancer.org ??? [place] [employer] Association: www.auanet.org Contact a health care [...] The prostate gland (more content not included)... [facility] 03-14-2024 History of Present illness Narrative [...] BMI 32.0-32.9,adult 5. Coronary artery disease of [place] artery of [place] heart with stable angina pectoris Scribe Attestation [...] discussion and plan. documented in this encounter [facility] Work Phone: 03-14-2024 Instructions Jessica Gonzales LPN [...] be sent through Care Everywhere.Heart Healthy Diet (Palauan)documented in this encounter [facility] Work Phone: 09-09-2023 History of Present illness Narrative Cardiology Consultation- New Consult Reason for referral: Follow-up after recent bypass surgery to establish care HPI: Robert Smiley is a 62 y.o. male whom I am seeing for the first time. He presented 8 weeks ago with myocardial infarction. Cardiac catheterization showed mild LV systolic dysfunction and multivessel coronary artery disease. He was transferred to [facility] where he underwent four-vessel bypass surgery with [...] discussion and plan. documented in this encounter [facility] Work Phone: 09-09-2023 Instructions Rody Tsai LPN - 09/09/2023 9:00 AM EDT Please [...] up 6 months documented in this encounter [facility] Work Phone: 08-25-2023 History of Present illness [...] 08/25/23 2:11 PM documented in this encounter [facility] Work Phone: 08-17-2023 History of Present illness [...] (5' 8 ) documented in this encounter [facility] Work Phone: 08-11-2023 History of Present illness Narrative This 62 year old status post CABG X [address] Peck [address] [facility] on 07/25/23. Patient discharged from hospital on [...] to follow up with No one from [facility], PT, or OT has come to see patient so I will notify them. His headhunter and primary care physician. He has a follow up with Dr Peck with a chest x-ray prior to his visit. Patient instructed to call with any questions or concerns. documented in this encounter [facility] Work Phone: 07-31-2023 Miscellaneous Notes The patient's [...] address these barriers include continue ordered medications. [facility] SIGNIFICANT EVENT NOTE: Date: 07/26/2023 [...] CHRISTY Richards Pulmonary & Critical Care Medicine [facility] Creation Bypass Graft Coronary Artery X 4 (estes/lad, svg-cx-pda, svg-diag); MARCUS; EV Operative Note Date: 07/19/2023 - 07/25/2023 OR Location: [facility] OR Name: Robert Smiley, : 1960, Age: 62 y.o., , Sex: male Diagnosis Pre-op Diagnosis * Coronary artery disease of [place] artery of [place] heart with stable angina pectoris (CMS/HCC) [I25.118] Post-op Diagnosis * Coronary artery disease of [place] artery of [place] heart with stable angina pectoris (CMS/HCC) [I25.118] Procedures Creation Bypass Graft Coronary Artery X 4 (estes/lad, svg-cx-pda, svg-diag); [place]; [place] [address] - [place] CABG W/ARTERIAL GRAFT TWO ARTERIAL GRAFTS CABGx4 ESTES- LAD SVG-D1 SVG-CX-PDA Surgeons * Scar Peck - Primary Resident/Fellow/Other Denial Management Representative: Surgeon(s) and Role: Procedure Summary Anesthesia: General ASA: IV Anesthesia Staff: TRAIN GATE ATTENDANT: Shirley Osborn APRN-TRAIN GATE ATTENDANT Lime Puller: Dhaval Laboy Anesthesia Break User: Sana Tripp [...] 1348 mL Specimen: No specimens collected Staff: Is Support Analyst: Mellissa Kapoor RN Relief Is Support Analyst: Lanre Ferro RN Scrub Person: Vielka Syed; Precious Pike RN Drains and/or Catheters: Chest Tube 1 Mediastinal 32 Fr (Active) Chest Tube 2 Left Pleural 28 Fr (Active) Urethral Catheter Non-latex 16 Fr. (Active) Tourniquet Times: Implants: Implants Type Name Action Serial No. Heart Valve CARDIOPLEGIA SET - [id number] Implanted Indications: Robert Smiley is an 62 y.o. male who is having surgery for Coronary artery disease of [place] artery of [place] heart with stable angina pectoris ([facility]) [I25.118]. The patient was seen in the [...] length of reverse saphenous vein was anastomosed sacd-mc-yyyt using continuous 7-0 Prolene. Sequential with the [...] diffuse triple vessel disease, and transferred to [facility] for CABG eval -TTE here showed normal [...] pain this shift documented in this encounter [facility] Work Phone: 03-17-2024 History of Present illness Narrative Images from the original note were not included. [facility] Progress Note Rounding ANTONIO/Hydraulic Repairer: Dev Ding MD, Dr. Heraclio Benitez Primary Hydraulic Repairer: Dr Horton Date: 07/31/2023 Patient: Robert Smiley [...] angina. He was admitted on 07/19/2023. Previous [facility] and [facility] records have been reviewed in detail. Patient with a history of CAD, hypertension dyslipidemia was transferred from [facility] for CABG evaluation. On Tuesday the patient developed chest pain that radiated down his left arm along with chest pain he went to [facility] LAD 95% Circumflex 95% [...] Transthoracic Echo (TTE) Complete Result Date: 07/19/[address] [address] TRANSTHORACIC ECHOCARDIOGRAM REPORT Patient Name: ROBERT SMILEY Reading Physician: [id number] Dev Ding MD, [facility] CONCLUSIONS: 1. Left ventricular systolic function is [...] Aleida Horvath 07/31/2023 7:37 AM Dictation workstation: [id number] XR chest 1 view Final Result 1. Increased irregular left basilar opacification may represent a combination of atelectasis, infiltrate and possible small volume effusion. 2. Mild right basilar atelectasis. MACRO: None. Signed by: Hector Smith 07/30/2023 2:27 PM Dictation workstation: [id number] XR chest 1 view Final Result NO ACUTE DISEASE IN THE CHEST MACRO: None Signed by: Isaiah Cross 07/29/2023 7:58 AM Dictation workstation: [id number] XR chest 1 view Final Result The right jugular central venous catheter is been removed. Bibasilar atelectatic changes similar to prior exam. MACRO: None Signed by: Hiren Vizcarra 07/28/2023 7:46 AM Dictation workstation: [id number] XR chest 1 view Final Result 1. No significant interval change. MACRO: None. Signed by: Hector Smith 07/27/2023 8:05 AM Dictation workstation: [id number] XR chest 1 view Final Result No pneumothorax MACRO: None Signed by: Isaiah Cross 07/26/2023 3:01 PM Dictation workstation: [id number] XR chest 1 view Final Result 1. Low inspiratory volume. Bibasilar infiltrates and/or atelectasis, left greater than right, similar to prior. MACRO: None. Signed by: Hcetor Smith 07/26/2023 8:21 AM Dictation workstation: [id number] XR chest 1 view Final Result Postop changes. Question of basilar infiltrate or atelectasis. A nasogastric tube may be present. The course and location of the tip is uncertain. MACRO: none Signed by: Janet Pate 07/25/2023 4:09 PM Dictation workstation: [id number] XR chest 1 view Final Result 1. Interval [place] catheter placement tip of the proximal right pulmonary artery as discussed above. No pneumothorax. MACRO: None Signed by: Bjorn Sandoval 07/25/2023 10:38 AM Dictation workstation: [id number] Anesthesia Intraoperative Transesophageal Echocardiogram Final Result Carotid duplex bilateral Final Result Normal flow pattern without evidence of hemodynamically relevant stenosis or atheromatous plaques in the visualized portions of the carotid circulation as described above. MACRO: None Signed by: Hector Smith 07/19/2023 3:43 PM Dictation workstation: [id number] XR chest 2 views Final Result 1. Mild left basilar atelectasis. No focal consolidation. MACRO: None. Signed by: Hector Smith 07/19/2023 3:41 PM Dictation workstation: [id number] CT chest wo IV contrast Final Result 1. No thoracic aortic aneurysm. Ascending thoracic aorta measures 3.1 cm in diameter. 2. Irregular calcification at the aortic root level. No evidence of calcification in the ascending thoracic aorta. 3. Cholelithiasis. No pericholecystic inflammation. No biliary dilation. MACRO: None. Signed by: Hector Smith 07/19/2023 2:09 PM Dictation workstation: [id number] Transthoracic Echo (TTE) Complete Final Result PROBLEM LIST Patient Active Problem List Diagnosis Acute myocardial infarction due to left coronary artery occlusion (CMS/HCC) Hyperlipidemia Coronary artery disease of [place] artery of [place] heart with stable angina pectoris (CMS/HCC) Asperger's syndrome Elevated troponin ASSESSMENT: CAD triple-vessel disease Hypertension Dyslipidemia PLAN: Patient seen and examined in conjunction with Troy Ferro APRN and agree with the evaluation as noted above. 62-year-old gentleman who was transferred from [facility] for possible angina. He has a history [...] EKGs Further recommendations per Dr Emmanuel Ferro [facility] Of note, this documentation is completed using the [employer] Dictation system (voice recognition software). There may [...] Will continue to follow along Thom Melgar [facility] Adult Gerontology Acute Care Nurse Practitioner [facility] [phone] 07/28/23 Alert and oriented x 3. Up [...] to monitor Remains in normal sinus rhythm. [id number] score of 2, would recommend long-term anticoagulation with Eliquis. Defer to cardiac surgery team. Will continue to follow along Thom Melgar [facility] Adult Gerontology Acute Care Nurse Practitioner [facility] [phone] 07/29/23 Patient had brief episode of recurrent [...] from the original note were not included. [facility] Progress Note Rounding ANTONIO/Hydraulic Repairer: Dev Ding MD, Dr. Heraclio Benitez Primary Hydraulic Repairer: Dr Horton Date: 07/30/2023 Patient: Robert Smiley [...] angina. He was admitted on 07/19/2023. Previous [facility] and [facility] records have been reviewed in detail. Patient with a history of CAD, hypertension dyslipidemia was transferred from [facility] for CABG evaluation. On Tuesday the patient developed chest pain that radiated down his left arm along with chest pain he went to [facility] LAD 95% Circumflex 95% [...] Transthoracic Echo (TTE) Complete Result Date: 07/19/2023 [place] [id number] TRANSTHORACIC ECHOCARDIOGRAM REPORT Patient Name: ROBERT SMILEY Reading Physician: [id number] Dev Ding MD, [facility] CONCLUSIONS: 1. Left ventricular systolic function is [...] Isaiah Cross 07/29/2023 7:58 AM Dictation workstation: [id number] XR chest 1 view Final Result The right jugular central venous catheter is been removed. Bibasilar atelectatic changes similar to prior exam. MACRO: None Signed by: Hiren Vizcarra 07/28/2023 7:46 AM Dictation workstation: [id number] XR chest 1 view Final Result 1. No significant interval change. MACRO: None. Signed by: Hector Smith 07/27/2023 8:05 AM Dictation workstation: [id number] XR chest 1 view Final Result No pneumothorax MACRO: None Signed by: Isaiah Cross 07/26/2023 3:01 PM Dictation workstation: [id number] XR chest 1 view Final Result 1. Low inspiratory volume. Bibasilar infiltrates and/or atelectasis, left greater than right, similar to prior. MACRO: None. Signed by: Hector Smith 07/26/2023 8:21 AM Dictation workstation: [id number] XR chest 1 view Final Result Postop changes. Question of basilar infiltrate or atelectasis. A nasogastric tube may be present. The course and location of the tip is uncertain. MACRO: none Signed by: Janet Pate 07/25/2023 4:09 PM Dictation workstation: [id number] XR chest 1 view Final Result 1. Interval [place] catheter placement tip of the proximal right pulmonary artery as discussed above. No pneumothorax. MACRO: None Signed by: Bjorn Sandoval 07/25/2023 10:38 AM Dictation workstation: [id number] Anesthesia Intraoperative Transesophageal Echocardiogram Final Result Carotid duplex bilateral Final Result Normal flow pattern without evidence of hemodynamically relevant stenosis or atheromatous plaques in the visualized portions of the carotid circulation as described above. MACRO: None Signed by: Hector Smith 07/19/2023 3:43 PM Dictation workstation: [id number] XR chest 2 views Final Result 1. Mild left basilar atelectasis. No focal consolidation. MACRO: None. Signed by: Hector Smith 07/19/2023 3:41 PM Dictation workstation: [id number] CT chest wo IV contrast Final Result 1. No thoracic aortic aneurysm. Ascending thoracic aorta measures 3.1 cm in diameter. 2. Irregular calcification at the aortic root level. No evidence of calcification in the ascending thoracic aorta. 3. Cholelithiasis. No pericholecystic inflammation. No biliary dilation. MACRO: None. Signed by: Hector Smith 07/19/2023 2:09 PM Dictation workstation: [id number] Transthoracic Echo (TTE) Complete Final Result XR chest 1 view (Results Pending) PROBLEM LIST Patient Active Problem List Diagnosis Acute myocardial infarction due to left coronary artery occlusion (CMS/HCC) Hyperlipidemia Coronary artery disease of [place] artery of [place] heart with stable angina pectoris (CMS/HCC) Asperger's syndrome Elevated troponin ASSESSMENT: CAD triple-vessel disease Hypertension Dyslipidemia PLAN: Patient seen and examined in conjunction with Troy Ferro APRN and agree with the evaluation as noted above. 62-year-old gentleman who was transferred from [facility] for possible angina. He has a history [...] EKGs Further recommendations per Dr Emmanuel Ferro [facility] Of note, this documentation is completed using the [employer]oud[employer] system (voice recognition software). There may be [...] Will continue to follow along Thom Melgar [facility] Adult Gerontology Acute Care Nurse Practitioner [facility] [phone] 07/28/23 Alert and oriented x 3. Up [...] to monitor Remains in normal sinus rhythm. [id number] score of 2, would recommend long-term anticoagulation with Eliquis. Defer to cardiac surgery team. Will continue to follow along Thom Melgar [facility] Adult Gerontology Acute Care Nurse Practitioner [facility] [phone] 07/29/23 Patient had brief episode of recurrent [...] Rate 78 BPM Atrial Rate 78 BPM UT Interval 144 ms QRS Duration 84 ms QT Interval 386 ms QTC Calculation(Bazett) 440 ms P Greenleaf 13 degrees R Greenleaf 15 degrees T Greenleaf -11 degrees QRS Count 13 beats Q [...] Rate 73 BPM Atrial Rate 73 BPM UT Interval 150 ms QRS Duration 88 ms QT Interval 418 ms QTC Calculation(Bazett) 460 ms P Greenleaf 8 degrees R Greenleaf 9 degrees T Greenleaf -11 degrees QRS Count 12 beats Q [...] Portable chest, 28 July 2023 ACCESSION NUMBER(S): [id number] ORDERING CLINICIAN: DELILAH QUINTERO TECHNIQUE: Single frontal view of the chest; Portable technique FINDINGS: Enlarged cardiac silhouette is unchanged No consolidative lung opacity No edema / failure No large pleural effusion or demonstrable pneumothorax NO ACUTE DISEASE IN THE CHEST MACRO: None Signed by: Isaiah Cross 07/29/2023 7:58 AM Dictation workstation: [id number] ECG 12 Lead Result Date: 07/29/2023 Normal sinus rhythm Cannot rule out Inferior infarct (cited on or before 19-JUL-2023) Abnormal ECG When compared with ECG of 28-JUL-2023 06:30, (unconfirmed) Premature supraventricular complexes are no longer Present Serial changes of Inferior infarct Present Assessment/Plan Principal Problem: Acute myocardial infarction due to left coronary artery occlusion (CMS/HCC) Active Problems: Hyperlipidemia Coronary artery disease of [place] artery of [place] heart with stable angina pectoris (CMS/HCC) Asperger's syndrome Elevated troponin CAD; NSTEMI Hx of CAD s/p PCI x2 (2016) maintained on Plavix since (last dose 07/18). Presented to OSH c/o midsternal CP that woke him from sleep. Ruled in as NSTEMI. Underwent coronary angiogram revealing diffuse TVD. Pt transferred to [facility] for consideration of surgical revascularization. July 24 [...] - for DC planning; anticipate home with [facility] tomorrow if rhythm and rate controlled -CBC, [...] this patient. CHRISTY Garcia Patient preference is [facility] and [facility] pending PT>OT recommendations. Patient resides in [place] [place] [facility]. [facility] Patient was given [facility] option list for his insurance and area. [...] at start of session Precautions: Hearing/Visual Limitations: SELDOVIA, bilateral hearing aids Medical Precautions: Fall precautions [...] performing tasks seated due to fatigue Outcome Measures:[facility] Daily Activity Putting on and taking off [...] infarction due to left coronary artery occlusion ([facility]). Subjective Pt is doing well. Remains afebrile [...] Rate 82 BPM Atrial Rate 82 BPM UT Interval 142 ms QRS Duration 82 ms QT Interval 374 ms QTC Calculation(Bazett) 436 ms P Greenleaf 14 degrees R Greenleaf 17 degrees T Greenleaf 8 degrees QRS Count 14 beats Q [...] Portable chest, 28 July 2023 ACCESSION NUMBER(S): [id number] ORDERING CLINICIAN: DELILAH QUINTERO TECHNIQUE: Single frontal view of the chest; Portable technique FINDINGS: Enlarged cardiac silhouette is unchanged No consolidative lung opacity No edema / failure No large pleural effusion or demonstrable pneumothorax NO ACUTE DISEASE IN THE CHEST MACRO: None Signed by: Isaiah Cross 07/29/2023 7:58 AM Dictation workstation: [id number] ECG 12 Lead Result Date: 07/29/2023 Normal [...] radiograph and 07/19/[address] ACCESSION NUMBER(S): [id number] ORDERING CLINICIAN: DELILAH QUINTERO TECHNIQUE: AP portable [...] Hiren Vizcarra 07/28/2023 7:46 AM Dictation workstation: [id number] ECG 12 Lead Result Date: 07/28/2023 Sinus rhythm with Premature supraventricular complexes Inferior infarct (cited on or before 19-JUL-2023) Abnormal ECG When compared with ECG of 27-JUL-2023 06:54, (unconfirmed) Premature supraventricular complexes are now Present Serial changes of Inferior infarct Present Assessment/Plan Principal Problem: Acute myocardial infarction due to left coronary artery occlusion (CMS/HCC) Active Problems: Hyperlipidemia Coronary artery disease of [place] artery of [place] heart with stable angina pectoris (CMS/HCC) Asperger's syndrome Elevated troponin CAD; NSTEMI Hx of CAD s/p PCI x2 (2016) maintained on Plavix since (last dose 07/18). Presented to OSH c/o midsternal CP that woke him from sleep. Ruled in as NSTEMI. Underwent coronary angiogram revealing diffuse TVD. Pt transferred to [facility] for consideration of surgical revascularization. July 24 [...] -SW for DC planning; anticipate home with [facility] in 24-48H -CBC, BMP, Mag, EKG, and [...] from the original note were not included. Formerly [facility], later [facility] Progress Note Rounding ANTONIO/Hydraulic Repairer: CHRISTY Hahn, Dr. Heraclio Benitez Primary Hydraulic Repairer: Dr Horton Date: 07/29/2023 Patient: Robert Smiley [...] angina. He was admitted on 07/19/2023. Previous [facility] and [facility] records have been reviewed in detail. Patient with a history of CAD, hypertension dyslipidemia was transferred from [facility] for CABG evaluation. On Tuesday the patient developed chest pain that radiated down his left arm along with chest pain he went to [facility] LAD 95% Circumflex 95% [...] Date: 07/19/2023 Interpreted By: Hector Smith, STUDY: [facility] CAROTID ARTERY DUPLEX BILATERAL; 07/19/2023 2:38 pm INDICATION: Signs/Symptoms:pre-op CABG; r/o carotid stenosis. COMPARISON: None. ACCESSION NUMBER(S): [id number] ORDERING CLINICIAN: MARYANNE YOU TECHNIQUE: Vascular ultrasound [...] Hector Smith 07/19/2023 3:43 PM Dictation workstation: [id number] XR chest 2 views Result Date: 07/19/2023 Interpreted By: Hector Smith, STUDY: XR CHEST 2 VIEWS; 07/19/2023 2:08 pm INDICATION: Signs/Symptoms:pre-op CABG. COMPARISON: None. ACCESSION NUMBER(S): [id number] ORDERING CLINICIAN: MARYANNE YOU FINDINGS: CARDIOMEDIASTINAL SILHOUETTE: [...] Hector Smith 07/19/2023 3:41 PM Dictation workstation: [id number] Transthoracic Echo (TTE) Complete Result Date: 07/19/2023 [place] [id number] TRANSTHORACIC ECHOCARDIOGRAM REPORT Patient Name: ROBERT DARENINDIGO Reading Physician: [id number] Dev Ding MD, [facility] Study Date: 07/19/2023 Ordering Provider: [id number] EDUARDO FERRO MRN/PID: [id number] Fellow: Nurse: Mendoza Dowd RN Date of /Age: 5 1960 / 62 years Pre Owned Sales Consultant: Chloé Lyman RDCS Gender: M Additional Staff: Height: 172.72 cm Admit Date: 07/18/2023 Weight: 105.69 kg Admission Status: Inpatient - Routine BSA / BMI: 2.18 m2 / 35.43 Department Location: [place] [address] Echo Lab Blood Pressure: 112 /58 mmHg Study Type: TRANSTHORACIC ECHO (TTE) COMPLETE Diagnosis/ICD: Encounter for preprocedural cardiovascular examination-Z01.810 Indication: PRE-OP CABG CPT Codes: Echo Complete w Full Doppler-34079 Patient History: Pertinent History: CAD, Hyperlipidemia and FL. Study Detail: The following Echo studies were [...] LA Area A2C: 15.3 cm2 LA Major Greenleaf A4C: 5.6 cm LA Major Greenleaf A2C: 4.9 cm LA Volume Index: 17.9 ml/m2 RA VOLUME BY A/L METHOD: Normal Ranges: RA Vol A4C: 33.3 ml (8.3-19.5ml) RA Vol Index A4C: 15.3 ml/m2 RA Area A4C: 13.7 cm2 RA Major Greenleaf A4C: 4.8 cm AORTA MEASUREMENTS: Normal Ranges: [...] 1.0 m/s (0.6-0.9m/s) PV Max P.7 mmHg [id number] Dev Ding MD, FACC Electronically signed on 07/19/2023 at 2:33:[address] chest wo IV contrast Result Date: 07/19/2023 Interpreted By: Hector Smith, STUDY: CT CHEST WO IV CONTRAST; 07/19/2023 1:48 pm INDICATION: Signs/Symptoms:pre-op CABG; please assess ascending aorta for atherosclerosis and size. COMPARISON: None. ACCESSION NUMBER(S): [id number] ORDERING CLINICIAN: MARYANNE YOU TECHNIQUE: Contiguous unenhanced [...] Hector Smith 07/19/2023 2:09 PM Dictation workstation: [id number] ECG 12 lead Result Date: 07/19/2023 Normal sinus rhythm Possible Inferior infarct , age undetermined Abnormal ECG No previous ECGs available Confirmed by Courtney Shrestha ([id number]) on 07/19/2023 7:31:32 AM XR chest 1 view Final Result NO ACUTE DISEASE IN THE CHEST MACRO: None Signed by: Isaiah Cross 07/29/2023 7:58 AM Dictation workstation: [id number] XR chest 1 view Final Result The right jugular central venous catheter is been removed. Bibasilar atelectatic changes similar to prior exam. MACRO: None Signed by: Hiren Vizcarra 07/28/2023 7:46 AM Dictation workstation: [id number] XR chest 1 view Final Result 1. No significant interval change. MACRO: None. Signed by: Hector Smith 07/27/2023 8:05 AM Dictation workstation: [id number] XR chest 1 view Final Result No pneumothorax MACRO: None Signed by: Isaiah Cross 07/26/2023 3:01 PM Dictation workstation: [id number] XR chest 1 view Final Result 1. Low inspiratory volume. Bibasilar infiltrates and/or atelectasis, left greater than right, similar to prior. MACRO: None. Signed by: Hector Smith 07/26/2023 8:21 AM Dictation workstation: [id number] XR chest 1 view Final Result Postop changes. Question of basilar infiltrate or atelectasis. A nasogastric tube may be present. The course and location of the tip is uncertain. MACRO: none Signed by: Janet Pate 07/25/2023 4:09 PM Dictation workstation: [id number] XR chest 1 view Final Result 1. Interval [place] catheter placement tip of the proximal right pulmonary artery as discussed above. No pneumothorax. MACRO: None Signed by: Bjorn Sandoval 07/25/2023 10:38 AM Dictation workstation: [id number] Anesthesia Intraoperative Transesophageal Echocardiogram Final Result Carotid duplex bilateral Final Result Normal flow pattern without evidence of hemodynamically relevant stenosis or atheromatous plaques in the visualized portions of the carotid circulation as described above. MACRO: None Signed by: Hector Smith 07/19/2023 3:43 PM Dictation workstation: [id number] XR chest 2 views Final Result 1. Mild left basilar atelectasis. No focal consolidation. MACRO: None. Signed by: Hector Smith 07/19/2023 3:41 PM Dictation workstation: [id number] CT chest wo IV contrast Final Result 1. No thoracic aortic aneurysm. Ascending thoracic aorta measures 3.1 cm in diameter. 2. Irregular calcification at the aortic root level. No evidence of calcification in the ascending thoracic aorta. 3. Cholelithiasis. No pericholecystic inflammation. No biliary dilation. MACRO: None. Signed by: Hector Smith 07/19/2023 2:09 PM Dictation workstation: [id number] Transthoracic Echo (TTE) Complete Final Result Transthoracic Echo (TTE) Complete Result Date: 07/19/2023 [place] [address] TRANSTHORACIC ECHOCARDIOGRAM REPORT Patient Name: ROBERT SMILEY Reading Physician: [id number] Dev Ding MD, [facility] Study Date: 07/19/2023 Ordering Provider: [id number] EDUARDO FERRO MRN/PID: [id number] Fellow: Nurse: Mendoza Dowd RN Date of /Age: 5 1960 / 62 years Pre Owned Sales Consultant: Chloé Lyman RDSAYRA Gender: M Additional Staff: Height: 172.72 cm Admit Date: 07/18/2023 Weight: 105.69 kg Admission Status: Inpatient - Routine BSA / BMI: 2.18 m2 / 35.43 Department Location: [facility] kg/m2 Echo Lab Blood Pressure: 112 /58 mmHg Study Type: TRANSTHORACIC ECHO (TTE) COMPLETE Diagnosis/ICD: Encounter for preprocedural cardiovascular examination-Z01.810 Indication: PRE-OP CABG CPT Codes: Echo Complete w Full Doppler-62493 Patient History: Pertinent History: CAD, Hyperlipidemia and FL. Study Detail: The following Echo studies were [...] LA Area A2C: 15.3 cm2 LA Major Greenleaf A4C: 5.6 cm LA Major Greenleaf A2C: 4.9 cm LA Volume Index: 17.9 ml/m2 RA VOLUME BY A/L METHOD: Normal Ranges: RA Vol A4C: 33.3 ml (8.3-19.5ml) RA Vol Index A4C: 15.3 ml/m2 RA Area A4C: 13.7 cm2 RA Major Greenleaf A4C: 4.8 cm AORTA MEASUREMENTS: Normal Ranges: [...] 1.0 m/s (0.6-0.9m/s) PV Max P.7 mmHg [id number] Dev Ding MD, [facility] Electronically signed on 07/19/2023 at 2:33:57 PM Final RADIOLOGY: XR chest 1 view Final Result NO ACUTE DISEASE IN THE CHEST MACRO: None Signed by: Isaiah Cross 07/29/2023 7:58 AM Dictation workstation: [id number] XR chest 1 view Final Result The right jugular central venous catheter is been removed. Bibasilar atelectatic changes similar to prior exam. MACRO: None Signed by: Hiren Vizcarra 07/28/2023 7:46 AM Dictation workstation: [id number] XR chest 1 view Final Result 1. No significant interval change. MACRO: None. Signed by: Hector Smith 07/27/2023 8:05 AM Dictation workstation: [id number] XR chest 1 view Final Result No pneumothorax MACRO: None Signed by: Isaiah Cross 07/26/2023 3:01 PM Dictation workstation: [id number] XR chest 1 view Final Result 1. Low inspiratory volume. Bibasilar infiltrates and/or atelectasis, left greater than right, similar to prior. MACRO: None. Signed by: Hector Smith 07/26/2023 8:21 AM Dictation workstation: [id number] XR chest 1 view Final Result Postop changes. Question of basilar infiltrate or atelectasis. A nasogastric tube may be present. The course and location of the tip is uncertain. MACRO: none Signed by: Janet aPte 07/25/2023 4:09 PM Dictation workstation: [id number] XR chest 1 view Final Result 1. Interval [place] catheter placement tip of the proximal right pulmonary artery as discussed above. No pneumothorax. MACRO: None Signed by: Bjorn Sandoval 07/25/2023 10:38 AM Dictation workstation: [id number] Anesthesia Intraoperative Transesophageal Echocardiogram Final Result Carotid duplex bilateral Final Result Normal flow pattern without evidence of hemodynamically relevant stenosis or atheromatous plaques in the visualized portions of the carotid circulation as described above. MACRO: None Signed by: Hector Smith 07/19/2023 3:43 PM Dictation workstation: [id number] XR chest 2 views Final Result 1. Mild left basilar atelectasis. No focal consolidation. MACRO: None. Signed by: Hector Smith 07/19/2023 3:41 PM Dictation workstation: [id number] CT chest wo IV contrast Final Result 1. No thoracic aortic aneurysm. Ascending thoracic aorta measures 3.1 cm in diameter. 2. Irregular calcification at the aortic root level. No evidence of calcification in the ascending thoracic aorta. 3. Cholelithiasis. No pericholecystic inflammation. No biliary dilation. MACRO: None. Signed by: Hector Smith 07/19/2023 2:09 PM Dictation workstation: [id number] Transthoracic Echo (TTE) Complete Final Result PROBLEM LIST Patient Active Problem List Diagnosis Acute myocardial infarction due to left coronary artery occlusion (CMS/HCC) Hyperlipidemia Coronary artery disease of [place] artery of [place] heart with stable angina pectoris (CMS/HCC) Asperger's syndrome Elevated troponin ASSESSMENT: CAD triple-vessel disease Hypertension Dyslipidemia PLAN: Patient seen and examined in conjunction with Troy Ferro APRN and agree with the evaluation as noted above. 62-year-old gentleman who was transferred from [facility] for possible angina. He has a history [...] Further recommendations per Dr Emmanuel Ferro CNP [facility] Of note, this documentation is completed using the [employer] Dictation system (voice recognition software). There may [...] Will continue to follow along Thom Melgar [facility] Adult Gerontology Acute Care Nurse Practitioner [facility] Heart [facility] Vascular [facility] [phone] Patient seen and examined in conjunction with Thom Meglar APRN/IRENA and agree with the evaluation as [...] to monitor Remains in normal sinus rhythm. [id number] score of 2, would recommend long-term anticoagulation with Eliquis. Defer to cardiac surgery team. Will continue to follow along Thom Melgar [facility] Adult Gerontology Acute Care Nurse Practitioner [facility] Heart [facility] V[facility] [phone] 07/29/23 Patient had brief episode of recurrent [...] start Eliquis for long-term anticoagulation. AKA \ [facility] Critical Care Medicine Progress Note Date: 07/29/2023 [...] Triple vessel disease and was transferred to [facility] for CABG eval. Pt currently now POD#4 [...] expressed need for patient with more assistance Quality Assurance Representative: DVT Prophylaxis: HSQ and will likely place on AC today GI Prophylaxis: None Bowel Regimen: Yes Diet: Cardiac CVC: None Cheryl: None Mac: None Restraints: None Dispo: Likely transfer to [address] [place] [address] today Apolinar Forbes MD Late entry : 1630 Rounded with patient's nurse Bjorn and rec'd update. Pt developed MICHELLE B with [facility] today . Plan is to remain in ICU overnight. Will require follow up for doctors hospital preference . No family visiting during rounding. Melissa Head RN Occupational Therapy Therapy Communication Note Patient Name: Robert Smiley Today's Date: 07/28/2023 Discipline: Occupational Therapy Missed Visit Reason: Missed Visit Reason: Patient placed on medical hold. Missed Time: [id number] Comment: OT spoke with RN. OT treatment [...] radiograph and 07/19/[address] ACCESSION NUMBER(S): [id number] ORDERING CLINICIAN: DELILAH QUINTERO TECHNIQUE: AP portable [...] Hiren Vizcarra 07/28/2023 7:46 AM Dictation workstation: [id number] ECG 12 Lead Result Date: 07/28/2023 Sinus [...] op cardiac surgery. COMPARISON: 07/26/2023. ACCESSION NUMBER(S): [id number] ORDERING CLINICIAN: DELILAH QUINTERO FINDINGS: CARDIOMEDIASTINAL SILHOUETTE: [...] Hector Smith 07/27/2023 8:05 AM Dictation workstation: [id number] ECG 12 Lead Result Date: 07/27/2023 Normal sinus rhythm Inferior infarct (cited on or before 19-JUL-2023) Anterior injury pattern ACUTE FL / STEMI Abnormal ECG When compared with [...] July 2023 at 0509 hours ACCESSION NUMBER(S): [id number] ORDERING CLINICIAN: MARYANNE YOU TECHNIQUE: Single frontal view of the chest; Portable technique FINDINGS: The only remaining device is the well-positioned right IJ introducer sheath, tip overlies lower SVC All other tubes/lines have been removed No pneumothorax or any other additional interval change otherwise No pneumothorax MACRO: None Signed by: Isaiah Cross 07/26/2023 3:01 PM Dictation workstation: [id number] Results for orders placed or performed during [...] Rate 81 BPM Atrial Rate 81 BPM UT Interval 144 ms QRS Duration 88 ms QT Interval 352 ms QTC Calculation(Bazett) 408 ms P Greenleaf 14 degrees R Greenleaf 7 degrees T Greenleaf -30 degrees QRS Count 13 beats Q Onset 216 ms P Onset 144 ms P Offset 198 ms T Offset 392 ms QTC Fredericia 388 ms POCT GLUCOSE Result Value Ref Range POCT Glucose 110 (H) 74 - 99 mg/dL Assessment/Plan Principal Problem: Acute myocardial infarction due to left coronary artery occlusion (CMS/HCC) Active Problems: Hyperlipidemia Coronary artery disease of [place] artery of [place] heart with stable angina pectoris (CMS/HCC) Asperger's syndrome Elevated troponin CAD; NSTEMI Hx of CAD s/p PCI x2 (2017) maintained on Plavix since (last dose 07/18). Presented to OSH c/o midsternal CP that woke him from sleep. Ruled in as NSTEMI. Underwent coronary angiogram revealing diffuse TVD. Pt transferred to [facility] for consideration of surgical revascularization. July 24 [...] from the original note were not included. Former[facility] Progress Note Rounding ANTONIO/Hydraulic Repairer: CHRISTY Hahn, Dr. Heraclio Benitez Primary Hydraulic Repairer: Dr Horton Date: 07/28/2023 Patient: Robert Smiley [...] angina. He was admitted on 07/19/2023. Previous [facility] and [facility] records have been reviewed in detail. Patient with a history of CAD, hypertension dyslipidemia was transferred from [facility] for CABG evaluation. On Tuesday the patient developed chest pain that radiated down his left arm along with chest pain he went to [facility] LAD 95% Circumflex 95% [...] Date: 07/19/2023 Interpreted By: Hector Smith, STUDY: [facility] CAROTID ARTERY DUPLEX BILATERAL; 07/19/2023 2:38 pm INDICATION: Signs/Symptoms:pre-op CABG; r/o carotid stenosis. COMPARISON: None. ACCESSION NUMBER(S): [id number] ORDERING CLINICIAN: MARYANNE YOU TECHNIQUE: Vascular ultrasound [...] Hector Smith 07/19/2023 3:43 PM Dictation workstation: [id number] XR chest 2 views Result Date: 07/19/2023 Interpreted By: Hector Smith, STUDY: XR CHEST 2 VIEWS; 07/19/2023 2:08 pm INDICATION: Signs/Symptoms:pre-op CABG. COMPARISON: None. ACCESSION NUMBER(S): [id number] ORDERING CLINICIAN: MARYANNE YOU FINDINGS: CARDIOMEDIASTINAL SILHOUETTE: [...] Hector Smith 07/19/2023 3:41 PM Dictation workstation: [id number] Transthoracic Echo (TTE) Complete Result Date: 07/19/2023 [place] [id number] TRANSTHORACIC ECHOCARDIOGRAM REPORT Patient Name: ROBERT SMILEY Reading Physician: [id number] Dev Ding MD, [facility] Study Date: 07/19/2023 Ordering Provider: [id number] EDUARDO FERRO MRN/PID: [id number] Fellow: Nurse: Mendoza Dowd RN Date of /Age: 5 1960 / 62 years Pre Owned Sales Consultant: Chloé Lyman RDCS Gender: M Additional Staff: Height: 172.72 cm Admit Date: 07/18/2023 Weight: 105.69 kg Admission Status: Inpatient - Routine BSA / BMI: 2.18 m2 / 35.43 Department Location: [place] [address] Echo Lab Blood Pressure: 112 /58 mmHg Study Type: TRANSTHORACIC ECHO (TTE) COMPLETE Diagnosis/ICD: Encounter for preprocedural cardiovascular examination-Z01.810 Indication: PRE-OP CABG CPT Codes: Echo Complete w Full Doppler-75946 Patient History: Pertinent History: CAD, Hyperlipidemia and FL. Study Detail: The following Echo studies were [...] LA Area A2C: 15.3 cm2 LA Major Greenleaf A4C: 5.6 cm LA Major [place] A2C: 4.9 cm LA Volume Index: 17.9 ml/m2 RA VOLUME BY A/L METHOD: Normal Ranges: RA Vol A4C: 33.3 ml (8.3-19.5ml) RA Vol Index A4C: 15.3 ml/m2 RA Area A4C: 13.7 cm2 RA Major [place] A4C: 4.8 cm AORTA MEASUREMENTS: Normal Ranges: [...] 1.0 m/s (0.6-0.9m/s) PV Max P.7 mmHg [id number] Dev Ding MD, [facility] Electronically signed on 07/19/2023 at 2:33:[address] chest wo IV contrast Result Date: 07/19/2023 Interpreted By: Hector Smith, STUDY: CT CHEST WO IV CONTRAST; 07/19/2023 1:48 pm INDICATION: Signs/Symptoms:pre-op CABG; please assess ascending aorta for atherosclerosis and size. COMPARISON: None. ACCESSION NUMBER(S): [id number] ORDERING CLINICIAN: MARYANNE YOU TECHNIQUE: Contiguous unenhanced [...] Hector Smith 07/19/2023 2:09 PM Dictation workstation: [id number] ECG 12 lead Result Date: 07/19/2023 Normal sinus rhythm Possible Inferior infarct , age undetermined Abnormal ECG No previous ECGs available Confirmed by Courtney Shrestha ([id number]) on 07/19/2023 7:31:32 AM XR chest 1 view Final Result The right jugular central venous catheter is been removed. Bibasilar atelectatic changes similar to prior exam. MACRO: None Signed by: Hiren Vizcarra 07/28/2023 7:46 AM Dictation workstation: [id number] XR chest 1 view Final Result 1. No significant interval change. MACRO: None. Signed by: Hector Smith 07/27/2023 8:05 AM Dictation workstation: [id number] XR chest 1 view Final Result No pneumothorax MACRO: None Signed by: Isaiah Cross 07/26/2023 3:01 PM Dictation workstation: [id number] XR chest 1 view Final Result 1. Low inspiratory volume. Bibasilar infiltrates and/or atelectasis, left greater than right, similar to prior. MACRO: None. Signed by: Hector Smith 07/26/2023 8:21 AM Dictation workstation: [id number] XR chest 1 view Final Result Postop changes. Question of basilar infiltrate or atelectasis. A nasogastric tube may be present. The course and location of the tip is uncertain. MACRO: none Signed by: Janet Pate 07/25/2023 4:09 PM Dictation workstation: [id number] XR chest 1 view Final Result 1. Interval [place] catheter placement tip of the proximal right pulmonary artery as discussed above. No pneumothorax. MACRO: None Signed by: Bjorn Sandoval 07/25/2023 10:38 AM Dictation workstation: [id number] Anesthesia Intraoperative Transesophageal Echocardiogram Final Result Carotid duplex bilateral Final Result Normal flow pattern without evidence of hemodynamically relevant stenosis or atheromatous plaques in the visualized portions of the carotid circulation as described above. MACRO: None Signed by: Hector Smith 07/19/2023 3:43 PM Dictation workstation: [id number] XR chest 2 views Final Result 1. Mild left basilar atelectasis. No focal consolidation. MACRO: None. Signed by: Hector Smith 07/19/2023 3:41 PM Dictation workstation: [id number] CT chest wo IV contrast Final Result 1. No thoracic aortic aneurysm. Ascending thoracic aorta measures 3.1 cm in diameter. 2. Irregular calcification at the aortic root level. No evidence of calcification in the ascending thoracic aorta. 3. Cholelithiasis. No pericholecystic inflammation. No biliary dilation. MACRO: None. Signed by: Hector Smith 07/19/2023 2:09 PM Dictation workstation: [id number] Transthoracic Echo (TTE) Complete Final Result Transthoracic Echo (TTE) Complete Result Date: 07/19/[address] [address] TRANSTHORACIC ECHOCARDIOGRAM REPORT Patient Name: ROBERT SMILEY Reading Physician: [id number] Dev Ding MD, [facility] Study Date: 07/19/2023 Ordering Provider: [id number] EDUARDO FERRO MRN/PID: [id number] Fellow: Nurse: Mendoza Dowd RN Date of /Age: 5 1960 / 62 years Pre Owned Sales Consultant: Chloé Lyman RDCS Gender: M Additional Staff: Height: 172.72 cm Admit Date: 07/18/2023 Weight: 105.69 kg Admission Status: Inpatient - Routine BSA / BMI: 2.18 m2 / 35.43 Department Location: [place] [address] Echo Lab Blood Pressure: 112 /58 mmHg Study Type: TRANSTHORACIC ECHO (TTE) COMPLETE Diagnosis/ICD: Encounter for preprocedural cardiovascular examination-Z01.810 Indication: PRE-OP CABG CPT Codes: Echo Complete w Full Doppler-96949 Patient History: Pertinent History: CAD, Hyperlipidemia and FL. Study Detail: The following Echo studies were [...] LA Area A2C: 15.3 cm2 LA Major [place] A4C: 5.6 cm LA Major [place] A2C: 4.9 cm LA Volume Index: 17.9 ml/m2 RA VOLUME BY A/L METHOD: Normal Ranges: RA Vol A4C: 33.3 ml (8.3-19.5ml) RA Vol Index A4C: 15.3 ml/m2 RA Area A4C: 13.7 cm2 RA Major [place] A4C: 4.8 cm AORTA MEASUREMENTS: Normal Ranges: [...] 1.0 m/s (0.6-0.9m/s) PV Max P.7 mmHg [id number] Dev Ding MD, [facility] Electronically signed on 07/19/2023 at 2:33:57 PM Final RADIOLOGY: XR chest 1 view Final Result The right jugular central venous catheter is been removed. Bibasilar atelectatic changes similar to prior exam. MACRO: None Signed by: Hiren Vizcarra 07/28/2023 7:46 AM Dictation workstation: [id number] XR chest 1 view Final Result 1. No significant interval change. MACRO: None. Signed by: Hector Smith 07/27/2023 8:05 AM Dictation workstation: [id number] XR chest 1 view Final Result No pneumothorax MACRO: None Signed by: Isaiah Cross 07/26/2023 3:01 PM Dictation workstation: [id number] XR chest 1 view Final Result 1. Low inspiratory volume. Bibasilar infiltrates and/or atelectasis, left greater than right, similar to prior. MACRO: None. Signed by: Hector Smith 07/26/2023 8:21 AM Dictation workstation: [id number] XR chest 1 view Final Result Postop changes. Question of basilar infiltrate or atelectasis. A nasogastric tube may be present. The course and location of the tip is uncertain. MACRO: none Signed by: Janet Pate 07/25/2023 4:09 PM Dictation workstation: [id number] XR chest 1 view Final Result 1. Interval [place] catheter placement tip of the proximal right pulmonary artery as discussed above. No pneumothorax. MACRO: None Signed by: Bjorn Sandoval 07/25/2023 10:38 AM Dictation workstation: [id number] Anesthesia Intraoperative Transesophageal Echocardiogram Final Result Carotid duplex bilateral Final Result Normal flow pattern without evidence of hemodynamically relevant stenosis or atheromatous plaques in the visualized portions of the carotid circulation as described above. MACRO: None Signed by: Hector Smith 07/19/2023 3:43 PM Dictation workstation: [id number] XR chest 2 views Final Result 1. Mild left basilar atelectasis. No focal consolidation. MACRO: None. Signed by: Hector Smith 07/19/2023 3:41 PM Dictation workstation: [id number] CT chest wo IV contrast Final Result 1. No thoracic aortic aneurysm. Ascending thoracic aorta measures 3.1 cm in diameter. 2. Irregular calcification at the aortic root level. No evidence of calcification in the ascending thoracic aorta. 3. Cholelithiasis. No pericholecystic inflammation. No biliary dilation. MACRO: None. Signed by: Hector Smith 07/19/2023 2:09 PM Dictation workstation: [id number] Transthoracic Echo (TTE) Complete Final Result PROBLEM LIST Patient Active Problem List Diagnosis Acute myocardial infarction due to left coronary artery occlusion (CMS/HCC) Hyperlipidemia Coronary artery disease of [place] artery of [place] heart with stable angina pectoris (CMS/HCC) Asperger's syndrome Elevated troponin ASSESSMENT: CAD triple-vessel disease Hypertension Dyslipidemia PLAN: Patient seen and examined in conjunction with Troy Ferro APRN and agree with the evaluation as noted above. 62-year-old gentleman who was transferred from [facility] for possible angina. He has a history [...] Further recommendations per Dr Emmanuel Ferro CNP [facility] Of note, this documentation is completed using the Kloudlessation system (voice recognition software). There may be [...] Will continue to follow along Thom Melgar [facility] Adult Gerontology Acute Care Nurse Practitioner [facility] Heart and Vascular [facility] [phone] Patient seen and examined in conjunction with [...] he is off of IV amiodarone. AKA [facility] Critical Care Medicine Progress Note Date: 07/28/2023 Patient: Robert Smiley Date of [...] Triple vessel disease and was transferred to [facility] for CABG eval. Pt currently now POD# [...] expressed need for patient with more assistance Quality Assurance Representative: DVT Prophylaxis: HSQ GI Prophylaxis: None Bowel Regimen: Yes Diet: Cardiac CVC: None Cheryl: None Mac: None Restraints: None Dispo: ICU care Critical Care time: 35 minutes Critical Care Activities: Coordination of other services involved in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 Peck -appreciate assistance of ICU colleagues -Remove [place]. Keep arterial line until NEPI weaned off [...] overall care of this patient. Maryanne You APRN-COMMUNICATION EQUIPMENT REPAIRER [facility] Progress Note Rounding ANTONIO/Hydraulic Repairer: CHRISTY Hahn, Dr. Heraclio Benitez Primary Hydraulic Repairer: Dr Horton Date: 07/26/2023 Patient: Robert Smiley [...] angina. He was admitted on 07/19/2023. Previous [facility] and [facility] records have been reviewed in detail. Patient with a history of CAD, hypertension dyslipidemia was transferred from [facility] for CABG evaluation. On Ayaan the patient developed chest pain that radiated down his left arm along with chest pain he went to [facility] LAD 95% Circumflex 95% [...] Date: 07/19/2023 Interpreted By: Hector Smith, STUDY: [facility] CAROTID ARTERY DUPLEX BILATERAL; 07/19/2023 2:38 pm INDICATION: Signs/Symptoms:pre-op CABG; r/o carotid stenosis. COMPARISON: None. ACCESSION NUMBER(S): [id number] ORDERING CLINICIAN: MARYANNE YOU TECHNIQUE: Vascular ultrasound [...] Hector Smith 07/19/2023 3:43 PM Dictation workstation: [id number] XR chest 2 views Result Date: 07/19/2023 Interpreted By: Hector Smith, STUDY: XR CHEST 2 VIEWS; 07/19/2023 2:08 pm INDICATION: Signs/Symptoms:pre-op CABG. COMPARISON: None. ACCESSION NUMBER(S): [id number] ORDERING CLINICIAN: MARYANNE YOU FINDINGS: CARDIOMEDIASTINAL SILHOUETTE: [...] Hector Smith 07/19/2023 3:41 PM Dictation workstation: [id number] Transthoracic Echo (TTE) Complete Result Date: 07/19/2023 [place] [id number] TRANSTHORACIC ECHOCARDIOGRAM REPORT Patient Name: ROBERT SMILEY Reading Physician: [id number] Dev Ding MD, [facility] Study Date: 07/19/2023 Ordering Provider: [id number] EDUARDO FERRO MRN/PID: [id number] Fellow: Nurse: Mendoza Dowd RN Date of /Age: 5 1960 / 62 years Pre Owned Sales Consultant: Chloé Lyman RDCS Gender: M Additional Staff: Height: 172.72 cm Admit Date: 07/18/2023 Weight: 105.69 kg Admission Status: Inpatient - Routine BSA / BMI: 2.18 m2 / 35.43 Department Location: [facility] kg/m2 Echo Lab Blood Pressure: 112 /58 mmHg Study Type: TRANSTHORACIC ECHO (TTE) COMPLETE Diagnosis/ICD: Encounter for preprocedural cardiovascular examination-Z01.810 Indication: PRE-OP CABG CPT Codes: Echo Complete w Full Doppler-16104 Patient History: Pertinent History: CAD, Hyperlipidemia and FL. Study Detail: The following Echo studies were [...] LA Area A2C: 15.3 cm2 LA Major Greenleaf A4C: 5.6 cm LA Major [place]leaf A2C: 4.9 cm LA Volume Index: 17.9 ml/m2 RA VOLUME BY A/L METHOD: Normal Ranges: RA Vol A4C: 33.3 ml (8.3-19.5ml) RA Vol Index A4C: 15.3 ml/m2 RA Area A4C: 13.7 cm2 RA Major Greenleaf A4C: 4.8 cm AORTA MEASUREMENTS: Normal Ranges: [...] 1.0 m/s (0.6-0.9m/s) PV Max P.7 mmHg [id number] Dve Ding MD, FACC Electronically signed on 07/19/2023 at 2:33:[address] chest wo IV contrast Result Date: 07/19/2023 Interpreted By: Hector Smith, STUDY: CT CHEST WO IV CONTRAST; 07/19/2023 1:48 pm INDICATION: Signs/Symptoms:pre-op CABG; please assess ascending aorta for atherosclerosis and size. COMPARISON: None. ACCESSION NUMBER(S): [id number] ORDERING CLINICIAN: MARYANNE YOU TECHNIQUE: Contiguous unenhanced [...] Hector Smith 07/19/2023 2:09 PM Dictation workstation: [id number] ECG 12 lead Result Date: 07/19/2023 Normal sinus rhythm Possible Inferior infarct , age undetermined Abnormal ECG No previous ECGs available Confirmed by Courtney Shrestha ([id number]) on 07/19/2023 7:31:32 AM XR chest 1 view Final Result 1. Low inspiratory volume. Bibasilar infiltrates and/or atelectasis, left greater than right, similar to prior. MACRO: None. Signed by: Hector Smith 07/26/2023 8:21 AM Dictation workstation: [id number] XR chest 1 view Final Result Postop changes. Question of basilar infiltrate or atelectasis. A nasogastric tube may be present. The course and location of the tip is uncertain. MACRO: none Signed by: Janet Pate 07/25/2023 4:09 PM Dictation workstation: [id number] XR chest 1 view Final Result 1. Interval [place]-Monae catheter placement tip of the proximal right pulmonary artery as discussed above. No pneumothorax. MACRO: None Signed by: Bjorn Sandoval 07/25/2023 10:38 AM Dictation workstation: [id number] Anesthesia Intraoperative Transesophageal Echocardiogram Final Result Carotid duplex bilateral Final Result Normal flow pattern without evidence of hemodynamically relevant stenosis or atheromatous plaques in the visualized portions of the carotid circulation as described above. MACRO: None Signed by: Hector Smith 07/19/2023 3:43 PM Dictation workstation: [id number] XR chest 2 views Final Result 1. Mild left basilar atelectasis. No focal consolidation. MACRO: None. Signed by: Hector Smith 07/19/2023 3:41 PM Dictation workstation: [id number] CT chest wo IV contrast Final Result 1. No thoracic aortic aneurysm. Ascending thoracic aorta measures 3.1 cm in diameter. 2. Irregular calcification at the aortic root level. No evidence of calcification in the ascending thoracic aorta. 3. Cholelithiasis. No pericholecystic inflammation. No biliary dilation. MACRO: None. Signed by: Hector Smith 07/19/2023 2:09 PM Dictation workstation: [id number] Transthoracic Echo (TTE) Complete Final Result Transthoracic Echo (TTE) Complete Result Date: 07/19/2023 [place] [id number] TRANSTHORACIC ECHOCARDIOGRAM REPORT Patient Name: ROBERT SMILEY Reading Physician: [id number] Dev Ding MD, [facility] Study Date: 07/19/2023 Ordering Provider: [id number] EDUARDO FERRO MRN/PID: [id number] Fellow: Nurse: Mendoza Dowd RN Date of /Age: 5 1960 / 62 years Pre Owned Sales Consultant: Chloé Lyman RDCS Gender: M Additional Staff: Height: 172.72 cm Admit Date: 07/18/2023 Weight: 105.69 kg Admission Status: Inpatient - Routine BSA / BMI: 2.18 m2 / 35.43 [facility] Blood Pressure: 112 /58 mmHg Study Type: TRANSTHORACIC ECHO (TTE) COMPLETE Diagnosis/ICD: Encounter for preprocedural cardiovascular examination-Z01.810 Indication: PRE-OP CABG CPT Codes: Echo Complete w Full Doppler-51430 Patient History: Pertinent History: CAD, Hyperlipidemia and FL. Study Detail: The following Echo studies were [...] LA Area A2C: 15.3 cm2 LA Major [place]leaf A4C: 5.6 cm LA Major [place] A2C: 4.9 cm LA Volume Index: 17.9 ml/m2 RA VOLUME BY A/L METHOD: Normal Ranges: RA Vol A4C: 33.3 ml (8.3-19.5ml) RA Vol Index A4C: 15.3 ml/m2 RA Area A4C: 13.7 cm2 RA Major [place]leaf A4C: 4.8 cm AORTA MEASUREMENTS: Normal Ranges: [...] 1.0 m/s (0.6-0.9m/s) PV Max P.7 mmHg [id number] Dev Ding MD, [facility] Electronically signed on 07/19/2023 at 2:33:57 PM Final RADIOLOGY: XR chest 1 view Final Result 1. Low inspiratory volume. Bibasilar infiltrates and/or atelectasis, left greater than right, similar to prior. MACRO: None. Signed by: Hector Smith 07/26/2023 8:21 AM Dictation workstation: [id number] XR chest 1 view Final Result Postop changes. Question of basilar infiltrate or atelectasis. A nasogastric tube may be present. The course and location of the tip is uncertain. MACRO: none Signed by: Janet Pate 07/25/2023 4:09 PM Dictation workstation: [id number] XR chest 1 view Final Result 1. Interval [place]-Monae catheter placement tip of the proximal right pulmonary artery as discussed above. No pneumothorax. MACRO: None Signed by: Bjorn Sandoval 07/25/2023 10:38 AM Dictation workstation: [id number] Anesthesia Intraoperative Transesophageal Echocardiogram Final Result Carotid duplex bilateral Final Result Normal flow pattern without evidence of hemodynamically relevant stenosis or atheromatous plaques in the visualized portions of the carotid circulation as described above. MACRO: None Signed by: Hector Smith 07/19/2023 3:43 PM Dictation workstation: [id number] XR chest 2 views Final Result 1. Mild left basilar atelectasis. No focal consolidation. MACRO: None. Signed by: Hector Smith 07/19/2023 3:41 PM Dictation workstation: [id number] CT chest wo IV contrast Final Result 1. No thoracic aortic aneurysm. Ascending thoracic aorta measures 3.1 cm in diameter. 2. Irregular calcification at the aortic root level. No evidence of calcification in the ascending thoracic aorta. 3. Cholelithiasis. No pericholecystic inflammation. No biliary dilation. MACRO: None. Signed by: Hector Smith 07/19/2023 2:09 PM Dictation workstation: [id number] Transthoracic Echo (TTE) Complete Final Result PROBLEM LIST Patient Active Problem List Diagnosis Acute myocardial infarction due to left coronary artery occlusion (CMS/HCC) Hyperlipidemia Coronary artery disease of [place] artery of [place] heart with stable angina pectoris (CMS/HCC) Asperger's syndrome Elevated troponin ASSESSMENT: CAD triple-vessel disease Hypertension Dyslipidemia PLAN: Patient seen and examined in conjunction with Troy Ferro APRN and agree with the evaluation as noted above. 62-year-old gentleman who was transferred from [facility] for possible angina. He has a history [...] Further recommendations per Dr Emmanuel Ferro CNP [facility] Of note, this documentation is completed using the Kloudlessation system (voice recognition software). There may be [...] triple vessel disease and was transferred to [facility] for consideration of CABG. Admitted to ICU on 07/24 s/p: Creation Bypass Graft Coronary Artery X 4 (estes/lad, svg-cx-pda, svg-diag); MARCUS; [facility] [id number] - UT CABG W/ARTERIAL GRAFT TWO ARTERIAL GRAFTS Median [...] Rate 77 BPM Atrial Rate 77 BPM UT Interval 168 ms QRS Duration 90 ms QT Interval 370 ms QTC Calculation(Bazett) 418 ms P Greenleaf 49 degrees R Greenleaf 26 degrees T Greenleaf -24 degrees QRS Count 12 beats Q [...] Rate 88 BPM Atrial Rate 88 BPM UT Interval 142 ms QRS Duration 70 ms QT Interval 334 ms QTC Calculation(Bazett) 404 ms P Greenleaf 12 degrees R Greenleaf 4 degrees T Greenleaf -16 degrees QRS Count 15 beats Q [...] op cardiac surgery. COMPARISON: 07/25/2023 ACCESSION NUMBER(S): [id number] ORDERING CLINICIAN: DELILAH QUINTERO FINDINGS: The heart size appears normal. There is faint bilateral parenchymal infiltrate and/or atelectasis. There is a left-sided chest tube. The mediastinal drain is present. An endotracheal tube terminates above the belinda. A [place]-Monae catheter is present with tip in the [...] Janet Pate 07/25/2023 4:09 PM Dictation workstation: [id number] Anesthesia Intraoperative Transesophageal Echocardiogram Result Date: 07/25/2023 [place] [id number] TRANSESOPHAGEAL ECHOCARDIOGRAM REPORT Patient Name: ROBERT SMILEY Reading Physician: [id number] Sana Tripp MD Study Date: 07/25/2023 Ordering Provider: [id number] SCAR PECK MRN/PID: [id number] Fellow: Nurse: Date of /Age: 5 1960 / 62 years Pre Owned Sales Consultant: Yadi AYALA Gender: M Additional Staff: Height: 172.72 cm Admit Date: 07/18/2023 Weight: 102.97 kg Admission Status: Inpatient - Routine BSA / BMI: 2.16 m2 / 34.52 kg/m2 Department Location: [place] Blood Pressure: 122 /64 mmHg Study Type: ANESTHESIA INTRAOPERATIVE MARCUS Diagnosis/ICD: Atherosclerotic heart disease of [place] coronary artery with other forms of angina pectoris-I25.118 Indication: CAD, PRE/POST CABG CPT Codes: MARCUS Complete-32105 Study Detail: The following Echo studies were performed: 2D, M-Mode, Doppler and color flow. The patient was under general anesthesia. PHYSICIAN INTERPRETATION: MARCUS Details: The MARCUS probe used was [id number]. Color flow Doppler echo was performed to [...] RV Syst Pressure: 37.8 mmHg (< 30mmHg) [id number] Sana Tripp MD Electronically signed on 07/25/2023 [...] Signs/Symptoms:post line insertion. COMPARISON: 07/19/2023 ACCESSION NUMBER(S): [id number] ORDERING CLINICIAN: SANA TRIPP FINDINGS: Interval placement of a right jugular [place]-Monae catheter. Catheter is pointing towards the right likely in the proximal right pulmonary artery. The there is no evidence for right pneumothorax. CARDIOMEDIASTINAL SILHOUETTE: Cardiomediastinal silhouette is normal in size and configuration. LUNGS: Lungs are clear. ABDOMEN: No remarkable upper abdominal findings. BONES: No acute osseous changes. 1. Interval [place]-Monae catheter placement tip of the proximal right pulmonary artery as discussed above. No pneumothorax. MACRO: None Signed by: Bjorn Sandoval 07/25/2023 10:38 AM Dictation workstation: [id number] Electrocardiogram, 12-lead Result Date: 07/24/2023 Normal sinus [...] Active Problems: Hyperlipidemia Coronary artery disease of [place] artery of [place] heart with stable angina pectoris (CMS/HCC) Asperger's [...] active skin problems Ethics/Code Status: Full Code Quality Assurance Representative: DVT Prophylaxis: SQH after mediastinal CT removed GI Prophylaxis: DC PPI once off pressors Bowel Regimen: Yes Diet: Yes CVC: rightIJ introducer with PA catheter, remove PA line, keep introducer Cheryl: Not functioning, remove Mac: yes Restraints: Terence Dispo: ICU Critical Care Time: 60 CHRISTY Stephen DNP [facility] Progress Note Rounding ANTONIO/Hydraulic Repairer: Heraclio Benitez MD, Dr. Heraclio Benitez Primary Hydraulic Repairer: Dr Horton Date: 07/24/2023 Patient: Robert Smiley [...] angina. He was admitted on 07/19/2023. Previous [facility] and [facility] records have been reviewed in detail. Patient with a history of CAD, hypertension dyslipidemia was transferred from [facility] for CABG evaluation. On Tuesday the patient developed chest pain that radiated down his left arm along with chest pain he went to [facility] LAD 95% Circumflex 95% [...] r/o carotid stenosis. COMPARISON: None. ACCESSION NUMBER(S): [id number] ORDERING CLINICIAN: MARYANNE YOU TECHNIQUE: Vascular ultrasound of the extracranial carotid system was performed bilaterally. Grifftih scale, color Doppler and spectral Doppler waveform [...] Hector Smith 07/19/2023 3:43 PM Dictation workstation: [id number] XR chest 2 views Result Date: 07/19/2023 Interpreted By: Hector Smith, STUDY: XR CHEST 2 VIEWS; 07/19/2023 2:08 pm INDICATION: Signs/Symptoms:pre-op CABG. COMPARISON: None. ACCESSION NUMBER(S): [id number] ORDERING CLINICIAN: MARYANNE YOU FINDINGS: CARDIOMEDIASTINAL SILHOUETTE: [...] Hector Smith 07/19/2023 3:41 PM Dictation workstation: [id number] Transthoracic Echo (TTE) Complete Result Date: 07/19/2023 [place] [id number] TRANSTHORACIC ECHOCARDIOGRAM REPORT Patient Name: ROBERT SMILEY Reading Physician: [id number] Dev Ding MD, [facility] Study Date: 07/19/2023 Ordering Provider: [id number] EDUARDO FERRO MRN/PID: [id number] Fellow: Nurse: Mendoza Dowd RN Date of /Age: 5 1960 / 62 years Pre Owned Sales Consultant: Chloé Lyman RD Gender: M Additional Staff: Height: 172.72 cm Admit Date: 07/18/2023 Weight: 105.69 kg Admission Status: Inpatient - Routine BSA / BMI: 2.18 m2 / 35.43 Department Location: [place] [address] Echo Lab Blood Pressure: 112 /58 mmHg Study Type: TRANSTHORACIC ECHO (TTE) COMPLETE Diagnosis/ICD: Encounter for preprocedural cardiovascular examination-Z01.810 Indication: PRE-OP CABG CPT Codes: Echo Complete w Full Doppler-95220 Patient History: Pertinent History: CAD, Hyperlipidemia and FL. Study Detail: The following Echo studies were [...] LA Area A2C: 15.3 cm2 LA Major Greenleaf A4C: 5.6 cm LA Major Greenleaf A2C: 4.9 cm LA Volume Index: 17.9 ml/m2 RA VOLUME BY A/L METHOD: Normal Ranges: RA Vol A4C: 33.3 ml (8.3-19.5ml) RA Vol Index A4C: 15.3 ml/m2 RA Area A4C: 13.7 cm2 RA Major Greenleaf A4C: 4.8 cm AORTA MEASUREMENTS: Normal Ranges: [...] 1.0 m/s (0.6-0.9m/s) PV Max P.7 mmHg [id number] Dev Ding MD, [facility] Electronically signed on 07/19/2023 at 2:33:[address] chest wo IV contrast Result Date: 07/19/2023 Interpreted By: Hector Smith, STUDY: CT CHEST WO IV CONTRAST; 07/19/2023 1:48 pm INDICATION: Signs/Symptoms:pre-op CABG; please assess ascending aorta for atherosclerosis and size. COMPARISON: None. ACCESSION NUMBER(S): [id number] ORDERING CLINICIAN: MARYANNE YOU TECHNIQUE: Contiguous unenhanced [...] Hector Smith 07/19/2023 2:09 PM Dictation workstation: [id number] ECG 12 lead Result Date: 07/19/2023 Normal [...] Hector Smith 07/19/2023 3:43 PM Dictation workstation: [id number] XR chest 2 views Final Result 1. Mild left basilar atelectasis. No focal consolidation. MACRO: None. Signed by: Hector Smith 07/19/2023 3:41 PM Dictation workstation: [id number] CT chest wo IV contrast Final Result 1. No thoracic aortic aneurysm. Ascending thoracic aorta measures 3.1 cm in diameter. 2. Irregular calcification at the aortic root level. No evidence of calcification in the ascending thoracic aorta. 3. Cholelithiasis. No pericholecystic inflammation. No biliary dilation. MACRO: None. Signed by: Hector Smith 07/19/2023 2:09 PM Dictation workstation: [id number] Transthoracic Echo (TTE) Complete Final Result Transthoracic Echo (TTE) Complete Result Date: 07/19/2023 [place] [address] TRANSTHORACIC ECHOCARDIOGRAM REPORT Patient Name: ROBERT SMILEY Reading Physician: [id number] Dev Ding MD, [facility] Study Date: 07/19/2023 Ordering Provider: [id number] EDUARDO HERR/PID: [id number] Fellow: Nurse: Mendoza Dowd RN Date of /Age: 5 1960 / 62 years Pre Owned Sales Consultant: Chloé Lyman RDCS Gender: M Additional Staff: Height: 172.72 cm Admit Date: 07/18/2023 Weight: 105.69 kg Admission Status: Inpatient - Routine BSA / BMI: 2.18 m2 / 35.43 Department Location: [facility]/m2 Echo Lab Blood Pressure: 112 /58 mmHg Study Type: TRANSTHORACIC ECHO (TTE) COMPLETE Diagnosis/ICD: Encounter for preprocedural cardiovascular examination-Z01.810 Indication: PRE-OP CABG CPT Codes: Echo Complete w Full Doppler-[id number] Patient History: Pertinent History: CAD, Hyperlipidemia and FL. Study Detail: The following Echo studies were [...] LA Area A2C: 15.3 cm2 LA Major Greenleaf A4C: 5.6 cm LA Major Greenleaf A2C: 4.9 cm LA Volume Index: 17.9 ml/m2 RA VOLUME BY A/L METHOD: Normal Ranges: RA Vol A4C: 33.3 ml (8.3-19.5ml) RA Vol Index A4C: 15.3 ml/m2 RA Area A4C: 13.7 cm2 RA Major Greenleaf A4C: 4.8 cm AORTA MEASUREMENTS: Normal Ranges: [...] 1.0 m/s (0.6-0.9m/s) PV Max P.7 mmHg [id number] Dev Ding MD, FACC Electronically signed on 07/19/2023 at 2:33:57 PM Final RADIOLOGY: Carotid duplex bilateral Final Result Normal flow pattern without evidence of hemodynamically relevant stenosis or atheromatous plaques in the visualized portions of the carotid circulation as described above. MACRO: None Signed by: Hector Smith 07/19/2023 3:43 PM Dictation workstation: [id number] XR chest 2 views Final Result 1. Mild left basilar atelectasis. No focal consolidation. MACRO: None. Signed by: Hector Smith 07/19/2023 3:41 PM Dictation workstation: [id number] CT chest wo IV contrast Final Result 1. No thoracic aortic aneurysm. Ascending thoracic aorta measures 3.1 cm in diameter. 2. Irregular calcification at the aortic root level. No evidence of calcification in the ascending thoracic aorta. 3. Cholelithiasis. No pericholecystic inflammation. No biliary dilation. MACRO: None. Signed by: Hector Smith 07/19/2023 2:09 PM Dictation workstation: [id number] Transthoracic Echo (TTE) Complete Final Result PROBLEM LIST Patient Active Problem List Diagnosis Acute myocardial infarction due to left coronary artery occlusion (CMS/HCC) Hyperlipidemia Coronary artery disease of [place] artery of [place] heart with stable angina pectoris (CMS/HCC) Asperger's syndrome Elevated troponin ASSESSMENT: CAD triple-vessel disease Hypertension Dyslipidemia PLAN: Patient seen and examined in conjunction with Troy Ferro APRN and agree with the evaluation as noted above. 62-year-old gentleman who was transferred from [facility] for possible angina. He has a history [...] EKGs Further recommendations per Dr Emmanuel Ferro [facility] Of note, this documentation is completed using the Kloudlessation system (voice recognition software). There may be [...] infarction due to left coronary artery occlusion ([facility]). Subjective No acute overnight events. 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 Presented to OSH c/o midsternal CP that woke him from sleep. Ruled in as NSTEMI. Underwent coronary angiogram revealing diffuse TVD. Pt transferred to [facility] for consideration of surgical revascularization. -Discussed with [...] diffuse triple vessel disease, and transferred to [facility] for CABG eval -TTE here showed normal [...] 22-JUL-2023 06:48, No significant change was found [facility] Progress Note Rounding ANTONIO/Hydraulic Repairer: Heraclio Benitez MD, Dr. Heraclio Benitez Primary Hydraulic Repairer: Dr Horton Date: 07/23/2023 Patient: Robert Smiley [...] angina. He was admitted on 07/19/2023. Previous [facility] and [facility] records have been reviewed in detail. Patient with a history of CAD, hypertension dyslipidemia was transferred from [facility] for CABG evaluation. On Tuesday the patient developed chest pain that radiated down his left arm along with chest pain he went to [facility] LAD 95% Circumflex 95% [...] Date: 07/19/2023 Interpreted By: Hector Smith, STUDY: [facility] US CAROTID ARTERY DUPLEX BILATERAL; 07/19/2023 2:38 pm INDICATION: Signs/Symptoms:pre-op CABG; r/o carotid stenosis. COMPARISON: None. ACCESSION NUMBER(S): [id number] ORDERING CLINICIAN: MARYANNE YOU TECHNIQUE: Vascular ultrasound [...] Hector Smith 07/19/2023 3:43 PM Dictation workstation: [id number] XR chest 2 views Result Date: 07/19/2023 Interpreted By: Hector Smith, STUDY: XR CHEST 2 VIEWS; 07/19/2023 2:08 pm INDICATION: Signs/Symptoms:pre-op CABG. COMPARISON: None. ACCESSION NUMBER(S): [id number] ORDERING CLINICIAN: MARYANNE YOU FINDINGS: CARDIOMEDIASTINAL SILHOUETTE: [...] Hector Smith 07/19/2023 3:41 PM Dictation workstation: [id number] Transthoracic Echo (TTE) Complete Result Date: 07/19/[address] [address] TRANSTHORACIC ECHOCARDIOGRAM REPORT Patient Name: ROBERT SMILEY Reading Physician: [id number] Ding MD, [facility] Study Date: 07/19/2023 Ordering Provider: [id number] EDUARDO FERRO MRN/PID: [id number] Fellow: Nurse: Mendoza Dowd RN Date of /Age: 5 1960 / 62 years Pre Owned Sales Consultant: Chloé Lyman RDCS Gender: M Additional Staff: Height: 172.72 cm Admit Date: 07/18/2023 Weight: 105.69 kg Admission Status: Inpatient - Routine BSA / BMI: 2.18 m2 / 35.43 Department Location: [place] [address] Echo Lab Blood Pressure: 112 /58 mmHg Study Type: TRANSTHORACIC ECHO (TTE) COMPLETE Diagnosis/ICD: Encounter for preprocedural cardiovascular examination-Z01.810 Indication: PRE-OP CABG CPT Codes: Echo Complete w Full Doppler-66787 Patient History: Pertinent History: CAD, Hyperlipidemia and FL. Study Detail: The following Echo studies were [...] LA Area A2C: 15.3 cm2 LA Major Greenleaf A4C: 5.6 cm LA Major Greenleaf A2C: 4.9 cm LA Volume Index: 17.9 ml/m2 RA VOLUME BY A/L METHOD: Normal Ranges: RA Vol A4C: 33.3 ml (8.3-19.5ml) RA Vol Index A4C: 15.3 ml/m2 RA Area A4C: 13.7 cm2 RA Major Greenleaf A4C: 4.8 cm AORTA MEASUREMENTS: Normal Ranges: [...] 1.0 m/s (0.6-0.9m/s) PV Max P.7 mmHg [id number] [facility], [facility] Electronically signed on 07/19/2023 at 2:33:[address] chest wo IV contrast Result Date: 07/19/2023 Interpreted By: Hector Smith, STUDY: CT CHEST WO IV CONTRAST; 07/19/2023 1:48 pm INDICATION: Signs/Symptoms:pre-op CABG; please assess ascending aorta for atherosclerosis and size. COMPARISON: None. ACCESSION NUMBER(S): [id number] ORDERING CLINICIAN: MARYANNE YOU TECHNIQUE: Contiguous unenhanced [...] Hector Smith 07/19/2023 2:09 PM Dictation workstation: [id number] ECG 12 lead Result Date: 07/19/2023 Normal sinus rhythm Possible Inferior infarct , age undetermined Abnormal ECG No previous ECGs available Confirmed by Courtney Shrestha ([id number]) on 07/19/2023 7:31:32 AM Carotid duplex bilateral Final Result Normal flow pattern without evidence of hemodynamically relevant stenosis or atheromatous plaques in the visualized portions of the carotid circulation as described above. MACRO: None Signed by: Hector Smith 07/19/2023 3:43 PM Dictation workstation: [id number] XR chest 2 views Final Result 1. Mild left basilar atelectasis. No focal consolidation. MACRO: None. Signed by: Hector Smith 07/19/2023 3:41 PM Dictation workstation: [id number] CT chest wo IV contrast Final Result 1. No thoracic aortic aneurysm. Ascending thoracic aorta measures 3.1 cm in diameter. 2. Irregular calcification at the aortic root level. No evidence of calcification in the ascending thoracic aorta. 3. Cholelithiasis. No pericholecystic inflammation. No biliary dilation. MACRO: None. Signed by: Hector Smith 07/19/2023 2:09 PM Dictation workstation: [id number] Transthoracic Echo (TTE) Complete Final Result Transthoracic Echo (TTE) Complete Result Date: 07/19/2023 [place] [address] TRANSTHORACIC ECHOCARDIOGRAM REPORT Patient Name: ROBERT SMILEY Reading Physician: [id number] Dev Ding MD, [facility] Study Date: 07/19/2023 Ordering Provider: [id number] EDUARDO FERRO MRN/PID: [id number] Fellow: Nurse: Mendoza Dowd RN Date of /Age: 5 1960 / 62 years Pre Owned Sales Consultant: Chloé Lyman RDCS Gender: M Additional Staff: Height: 172.72 cm Admit Date: 07/18/2023 Weight: 105.69 kg Admission Status: Inpatient - Routine BSA / BMI: 2.18 m2 / 35.43 Department Location: [place] [address] Echo Lab Blood Pressure: 112 /58 mmHg Study Type: TRANSTHORACIC ECHO (TTE) COMPLETE Diagnosis/ICD: Encounter for preprocedural cardiovascular examination-Z01.810 Indication: PRE-OP CABG CPT Codes: Echo Complete w Full Doppler-35791 Patient History: Pertinent History: CAD, Hyperlipidemia and FL. Study Detail: The following Echo studies were [...] LA Area A2C: 15.3 cm2 LA Major Greenleaf A4C: 5.6 cm LA Major Greenleaf A2C: 4.9 cm LA Volume Index: 17.9 ml/m2 RA VOLUME BY A/L METHOD: Normal Ranges: RA Vol A4C: 33.3 ml (8.3-19.5ml) RA Vol Index A4C: 15.3 ml/m2 RA Area A4C: 13.7 cm2 RA Major Greenleaf A4C: 4.8 cm AORTA MEASUREMENTS: Normal Ranges: [...] 1.0 m/s (0.6-0.9m/s) PV Max P.7 mmHg [id number] Dev Ding MD, [facility] Electronically signed on 07/19/2023 at 2:33:57 PM Final RADIOLOGY: Carotid duplex bilateral Final Result Normal flow pattern without evidence of hemodynamically relevant stenosis or atheromatous plaques in the visualized portions of the carotid circulation as described above. MACRO: None Signed by: Hector Smith 07/19/2023 3:43 PM Dictation workstation: [id number] XR chest 2 views Final Result 1. Mild left basilar atelectasis. No focal consolidation. MACRO: None. Signed by: Hector Smith 07/19/2023 3:41 PM Dictation workstation: [id number] CT chest wo IV contrast Final Result 1. No thoracic aortic aneurysm. Ascending thoracic aorta measures 3.1 cm in diameter. 2. Irregular calcification at the aortic root level. No evidence of calcification in the ascending thoracic aorta. 3. Cholelithiasis. No pericholecystic inflammation. No biliary dilation. MACRO: None. Signed by: Hector Smith 07/19/2023 2:09 PM Dictation workstation: [id number] Transthoracic Echo (TTE) Complete Final Result PROBLEM LIST Patient Active Problem List Diagnosis Acute myocardial infarction due to left coronary artery occlusion (CMS/HCC) Hyperlipidemia Coronary artery disease of [place] artery of [place] heart with stable angina pectoris (CMS/HCC) Asperger's syndrome Elevated troponin ASSESSMENT: CAD triple-vessel disease Hypertension Dyslipidemia PLAN: Patient seen and examined in conjunction with Troy Ferro APRN and agree with the evaluation as noted above. 62-year-old gentleman who was transferred from [facility] for possible angina. He has a history [...] EKGs Further recommendations per Dr Emmanuel Ferro [facility] Of note, this documentation is completed using the Kloudlessation system (voice recognition software). There may be [...] medications and follow the patient postoperatively. [facility] Progress Note Rounding ANTONIO/Hydraulic Repairer: Heraclio Benitez MD, Dr. Heraclio Benitez Primary Hydraulic Repairer: Dr Horton Date: 07/23/2023 Patient: Robert Smiley [...] angina. He was admitted on 07/19/2023. Previous [facility] and [facility] records have been reviewed in detail. Patient with a history of CAD, hypertension dyslipidemia was transferred from [facility] for CABG evaluation. On Tuesday the patient developed chest pain that radiated down his left arm along with chest pain he went to [facility] LAD 95% Circumflex 95% [...] Date: 07/19/2023 Interpreted By: Hector Smith, STUDY: [facility] US CAROTID ARTERY DUPLEX BILATERAL; 07/19/2023 2:38 pm INDICATION: Signs/Symptoms:pre-op CABG; r/o carotid stenosis. COMPARISON: None. ACCESSION NUMBER(S): [id number] ORDERING CLINICIAN: MARYANNE YOU TECHNIQUE: Vascular ultrasound [...] Hector Smith 07/19/2023 3:43 PM Dictation workstation: [id number] XR chest 2 views Result Date: 07/19/2023 Interpreted By: Hector Smith, STUDY: XR CHEST 2 VIEWS; 07/19/2023 2:08 pm INDICATION: Signs/Symptoms:pre-op CABG. COMPARISON: None. ACCESSION NUMBER(S): [id number] ORDERING CLINICIAN: MARYANNE YOU FINDINGS: CARDIOMEDIASTINAL SILHOUETTE: [...] Hector Smith 07/19/2023 3:41 PM Dictation workstation: [id number] Transthoracic Echo (TTE) Complete Result Date: 07/19/2023 [place] [address] TRANSTHORACIC ECHOCARDIOGRAM REPORT Patient Name: ROBERT SMILEY Reading Physician: [id number] Dev Ding MD, [facility] Study Date: 07/19/2023 Ordering Provider: [id number] EDUARDO FERRO MRN/PID: [id number] Fellow: Nurse: Mendoza Dowd RN Date of /Age: 5 1960 / 62 years Pre Owned Sales Consultant: Chloé Lyman RDCS Gender: M Additional Staff: Height: 172.72 cm Admit Date: 07/18/2023 Weight: 105.69 kg Admission Status: Inpatient - Routine BSA / BMI: 2.18 m2 / 35.43 Department Location: [place] [address] Echo Lab Blood Pressure: 112 /58 mmHg Study Type: TRANSTHORACIC ECHO (TTE) COMPLETE Diagnosis/ICD: Encounter for preprocedural cardiovascular examination-Z01.810 Indication: PRE-OP CABG CPT Codes: Echo Complete w Full Doppler-42261 Patient History: Pertinent History: CAD, Hyperlipidemia and FL. Study Detail: The following Echo studies were [...] LA Area A2C: 15.3 cm2 LA Major Greenleaf A4C: 5.6 cm LA Major Greenleaf A2C: 4.9 cm LA Volume Index: 17.9 ml/m2 RA VOLUME BY A/L METHOD: Normal Ranges: RA Vol A4C: 33.3 ml (8.3-19.5ml) RA Vol Index A4C: 15.3 ml/m2 RA Area A4C: 13.7 cm2 RA Major Greenleaf A4C: 4.8 cm AORTA MEASUREMENTS: Normal Ranges: [...] 1.0 m/s (0.6-0.9m/s) PV Max P.7 mmHg [id number] Dev Ding MD, [facility] Electronically signed on 07/19/2023 at 2:33:[address] chest wo IV contrast Result Date: 07/19/2023 Interpreted By: Hector Smith, STUDY: CT CHEST WO IV CONTRAST; 07/19/2023 1:48 pm INDICATION: Signs/Symptoms:pre-op CABG; please assess ascending aorta for atherosclerosis and size. COMPARISON: None. ACCESSION NUMBER(S): [id number] ORDERING CLINICIAN: MARYANNE YOU TECHNIQUE: Contiguous unenhanced [...] Hector Smith 07/19/2023 2:09 PM Dictation workstation: [id number] ECG 12 lead Result Date: 07/19/2023 Normal [...] Hector Smith 07/19/2023 3:43 PM Dictation workstation: [id number] XR chest 2 views Final Result 1. Mild left basilar atelectasis. No focal consolidation. MACRO: None. Signed by: Hector Smith 07/19/2023 3:41 PM Dictation workstation: [id number] CT chest wo IV contrast Final Result 1. No thoracic aortic aneurysm. Ascending thoracic aorta measures 3.1 cm in diameter. 2. Irregular calcification at the aortic root level. No evidence of calcification in the ascending thoracic aorta. 3. Cholelithiasis. No pericholecystic inflammation. No biliary dilation. MACRO: None. Signed by: Hector Smith 07/19/2023 2:09 PM Dictation workstation: [id number] Transthoracic Echo (TTE) Complete Final Result Transthoracic Echo (TTE) Complete Result Date: 07/19/2023 [place] [address] TRANSTHORACIC ECHOCARDIOGRAM REPORT Patient Name: ROBERT SMILEY Reading Physician: [id number] Dev Ding MD, [facility] Study Date: 07/19/2023 Ordering Provider: [id number] EDUARDO FERRO MRN/PID: [id number] Fellow: Nurse: Mendoza Dowd RN Date of /Age: 5 1960 / 62 years Pre Owned Sales Consultant: Chloé Lyman RDCS Gender: M Additional Staff: Height: 172.72 cm Admit Date: 07/18/2023 Weight: 105.69 kg Admission Status: Inpatient - Routine BSA / BMI: 2.18 m2 / 35.43 Department Location: [place] [address] Echo Lab Blood Pressure: 112 /58 mmHg Study Type: TRANSTHORACIC ECHO (TTE) COMPLETE Diagnosis/ICD: Encounter for preprocedural cardiovascular examination-Z01.810 Indication: PRE-OP CABG CPT Codes: Echo Complete w Full Doppler-02960 Patient History: Pertinent History: CAD, Hyperlipidemia and FL. Study Detail: The following Echo studies were [...] LA Area A2C: 15.3 cm2 LA Major Greenleaf A4C: 5.6 cm LA Major Greenleaf A2C: 4.9 cm LA Volume Index: 17.9 ml/m2 RA VOLUME BY A/L METHOD: Normal Ranges: RA Vol A4C: 33.3 ml (8.3-19.5ml) RA Vol Index A4C: 15.3 ml/m2 RA Area A4C: 13.7 cm2 RA Major Greenleaf A4C: 4.8 cm AORTA MEASUREMENTS: Normal Ranges: [...] 1.0 m/s (0.6-0.9m/s) PV Max P.7 mmHg [id number] Dev Ding MD, FACC Electronically signed on 07/19/2023 at 2:33:57 PM Final RADIOLOGY: Carotid duplex bilateral Final Result Normal flow pattern without evidence of hemodynamically relevant stenosis or atheromatous plaques in the visualized portions of the carotid circulation as described above. MACRO: None Signed by: Hector Smith 07/19/2023 3:43 PM Dictation workstation: [id number] XR chest 2 views Final Result 1. Mild left basilar atelectasis. No focal consolidation. MACRO: None. Signed by: Hector Smith 07/19/2023 3:41 PM Dictation workstation: [id number] CT chest wo IV contrast Final Result 1. No thoracic aortic aneurysm. Ascending thoracic aorta measures 3.1 cm in diameter. 2. Irregular calcification at the aortic root level. No evidence of calcification in the ascending thoracic aorta. 3. Cholelithiasis. No pericholecystic inflammation. No biliary dilation. MACRO: None. Signed by: Hector Smith 07/19/2023 2:09 PM Dictation workstation: [id number] Transthoracic Echo (TTE) Complete Final Result PROBLEM LIST Patient Active Problem List Diagnosis Acute myocardial infarction due to left coronary artery occlusion (CMS/HCC) Hyperlipidemia Coronary artery disease of [place] artery of [place] heart with stable angina pectoris (CMS/HCC) Asperger's syndrome Elevated troponin ASSESSMENT: CAD triple-vessel disease Hypertension Dyslipidemia PLAN: Patient seen and examined in conjunction with Troy Ferro APRN and agree with the evaluation as noted above. 62-year-old gentleman who was transferred from [facility] for possible angina. He has a history [...] EKGs Further recommendations per Dr Emmanuel Ferro [facility] Of note, this documentation is completed using the Kloudlessation system (voice recognition software). There may be [...] diffuse triple vessel disease, and transferred to [facility] for CABG eval -TTE here showed normal [...] Rate 67 BPM Atrial Rate 67 BPM UT Interval 152 ms QRS Duration 82 ms QT Interval 360 ms QTC Calculation(Bazett) 380 ms P Greenleaf 31 degrees R Greenleaf 19 degrees T Greenleaf -25 degrees QRS Count 11 beats Q [...] Rate 67 BPM Atrial Rate 67 BPM UT Interval 152 ms QRS Duration 82 ms QT Interval 360 ms QTC Calculation(Bazett) 380 ms P Greenleaf 31 degrees R Greenleaf 19 degrees T Greenleaf -25 degrees QRS Count 11 beats Q [...] Active Problems: Hyperlipidemia Coronary artery disease of [place] artery of [place] heart with stable angina pectoris (CMS/HCC) Asperger's syndrome Elevated troponin CAD; NSTEMI Hx of CAD s/p PCI x2 (2016) maintained on Plavix since (last dose 07/18). Presented to OSH c/o midsternal CP that woke him from sleep. Ruled in as NSTEMI. Underwent coronary angiogram revealing diffuse TVD. Pt transferred to [facility] for consideration of surgical revascularization. -Discussed with [...] overall care of this patient. CHRISTY Evans [facility] Progress Note Rounding ANTONIO/Hydraulic Repairer: CHRISTY Saenz, Dr. Heraclio Benitez Primary Hydraulic Repairer: Dr Horton Date: 07/22/2023 Patient: Robert Smiley [...] angina. He was admitted on 07/19/2023. Previous [facility] and [facility] records have been reviewed in detail. Patient with a history of CAD, hypertension dyslipidemia was transferred from [facility] for CABG evaluation. On Tuesday the patient developed chest pain that radiated down his left arm along with chest pain he went to [facility] LAD 95% Circumflex 95% [...] Date: 07/19/2023 Interpreted By: Hector Smith, STUDY: [facility] US CAROTID ARTERY DUPLEX BILATERAL; 07/19/2023 2:38 pm INDICATION: Signs/Symptoms:pre-op CABG; r/o carotid stenosis. COMPARISON: None. ACCESSION NUMBER(S): [id number] ORDERING CLINICIAN: MARYANNE YOU TECHNIQUE: Vascular ultrasound [...] Hector Smith 07/19/2023 3:43 PM Dictation workstation: [id number] XR chest 2 views Result Date: 07/19/2023 Interpreted By: Hector Smith, STUDY: XR CHEST 2 VIEWS; 07/19/2023 2:08 pm INDICATION: Signs/Symptoms:pre-op CABG. COMPARISON: None. ACCESSION NUMBER(S): [id number] ORDERING CLINICIAN: MARYANNE YOU FINDINGS: CARDIOMEDIASTINAL SILHOUETTE: [...] Hector Smith 07/19/2023 3:41 PM Dictation workstation: [id number] Transthoracic Echo (TTE) Complete Result Date: 07/19/2023 [place] [id number] TRANSTHORACIC ECHOCARDIOGRAM REPORT Patient Name: ROBERT SMILEY Reading Physician: [id number] Dev Ding MD, [facility] Study Date: 07/19/2023 Ordering Provider: [id number] EDUARDO FERRO MRN/PID: [id number] Fellow: Nurse: Mendoza Dowd RN Date of /Age: 5 1960 / 62 years Pre Owned Sales Consultant: Chloé Lyman RDCS Gender: M Additional Staff: Height: 172.72 cm Admit Date: 07/18/2023 Weight: 105.69 kg Admission Status: Inpatient - Routine BSA / BMI: 2.18 m2 / 35.43 Department Location: [place] [address] Echo Lab Blood Pressure: 112 /58 mmHg Study Type: TRANSTHORACIC ECHO (TTE) COMPLETE Diagnosis/ICD: Encounter for preprocedural cardiovascular examination-Z01.810 Indication: PRE-OP CABG CPT Codes: Echo Complete w Full Doppler-40199 Patient History: Pertinent History: CAD, Hyperlipidemia and FL. Study Detail: The following Echo studies were [...] LA Area A2C: 15.3 cm2 LA Major Greenleaf A4C: 5.6 cm LA Major Greenleaf A2C: 4.9 cm LA Volume Index: 17.9 ml/m2 RA VOLUME BY A/L METHOD: Normal Ranges: RA Vol A4C: 33.3 ml (8.3-19.5ml) RA Vol Index A4C: 15.3 ml/m2 RA Area A4C: 13.7 cm2 RA Major Greenleaf A4C: 4.8 cm AORTA MEASUREMENTS: Normal Ranges: [...] 1.0 m/s (0.6-0.9m/s) PV Max P.7 mmHg [id number] Dev Ding MD, [facility] Electronically signed on 07/19/2023 at 2:33:[address] chest wo IV contrast Result Date: 07/19/2023 Interpreted By: Hector Smith, STUDY: CT CHEST WO IV CONTRAST; 07/19/2023 1:48 pm INDICATION: Signs/Symptoms:pre-op CABG; please assess ascending aorta for atherosclerosis and size. COMPARISON: None. ACCESSION NUMBER(S): [id number] ORDERING CLINICIAN: MARYANNE YOU TECHNIQUE: Contiguous unenhanced [...] Hector Smith 07/19/2023 2:09 PM Dictation workstation: [id number] ECG 12 lead Result Date: 07/19/2023 Normal [...] Hector Smith 07/19/2023 3:43 PM Dictation workstation: [id number] XR chest 2 views Final Result 1. Mild left basilar atelectasis. No focal consolidation. MACRO: None. Signed by: Hector Smith 07/19/2023 3:41 PM Dictation workstation: [id number] CT chest wo IV contrast Final Result 1. No thoracic aortic aneurysm. Ascending thoracic aorta measures 3.1 cm in diameter. 2. Irregular calcification at the aortic root level. No evidence of calcification in the ascending thoracic aorta. 3. Cholelithiasis. No pericholecystic inflammation. No biliary dilation. MACRO: None. Signed by: Hector Smith 07/19/2023 2:09 PM Dictation workstation: [id number] Transthoracic Echo (TTE) Complete Final Result Transthoracic Echo (TTE) Complete Result Date: 07/19/2023 [place] [id number] TRANSTHORACIC ECHOCARDIOGRAM REPORT Patient Name: ROBERT SMILEY Reading Physician: [id number] Dev Ding MD, [facility] Study Date: 07/19/2023 Ordering Provider: [id number] EDUARDO FERRO MRN/PID: [id number] Fellow: Nurse: Mendoza Dowd RN Date of /Age: 5 1960 / 62 years Pre Owned Sales Consultant: Chloé Lyman SAYRA Gender: M Additional Staff: Height: 172.72 cm Admit Date: 07/18/2023 Weight: 105.69 kg Admission Status: Inpatient - Routine BSA / BMI: 2.18 m2 / 35.43 Department Location: [facility] kg/m2 Echo Lab Blood Pressure: 112 /58 mmHg Study Type: TRANSTHORACIC ECHO (TTE) COMPLETE Diagnosis/ICD: Encounter for preprocedural cardiovascular examination-Z01.810 Indication: PRE-OP CABG CPT Codes: Echo Complete w Full Doppler-12830 Patient History: Pertinent History: CAD, Hyperlipidemia and FL. Study Detail: The following Echo studies were [...] LA Area A2C: 15.3 cm2 LA Major Greenleaf A4C: 5.6 cm LA Major Greenleaf A2C: 4.9 cm LA Volume Index: 17.9 ml/m2 RA VOLUME BY A/L METHOD: Normal Ranges: RA Vol A4C: 33.3 ml (8.3-19.5ml) RA Vol Index A4C: 15.3 ml/m2 RA Area A4C: 13.7 cm2 RA Major Greenleaf A4C: 4.8 cm AORTA MEASUREMENTS: Normal Ranges: [...] 1.0 m/s (0.6-0.9m/s) PV Max P.7 mmHg [id number] Dev Ding MD, [facility] Electronically signed on 07/19/2023 at 2:33:57 PM Final RADIOLOGY: Carotid duplex bilateral Final Result Normal flow pattern without evidence of hemodynamically relevant stenosis or atheromatous plaques in the visualized portions of the carotid circulation as described above. MACRO: None Signed by: Hector Smith 07/19/2023 3:43 PM Dictation workstation: [id number] XR chest 2 views Final Result 1. Mild left basilar atelectasis. No focal consolidation. MACRO: None. Signed by: Hector Smith 07/19/2023 3:41 PM Dictation workstation: [id number] CT chest wo IV contrast Final Result 1. No thoracic aortic aneurysm. Ascending thoracic aorta measures 3.1 cm in diameter. 2. Irregular calcification at the aortic root level. No evidence of calcification in the ascending thoracic aorta. 3. Cholelithiasis. No pericholecystic inflammation. No biliary dilation. MACRO: None. Signed by: Hector Smith 07/19/2023 2:09 PM Dictation workstation: [id number] Transthoracic Echo (TTE) Complete Final Result PROBLEM LIST Patient Active Problem List Diagnosis Acute myocardial infarction due to left coronary artery occlusion (CMS/HCC) Hyperlipidemia Coronary artery disease of [place] artery of [place] heart with stable angina pectoris (CMS/HCC) Asperger's syndrome Elevated troponin ASSESSMENT: CAD triple-vessel disease Hypertension Dyslipidemia PLAN: Patient seen and examined in conjunction with Troy Ferro APRN and agree with the evaluation as noted above. 62-year-old gentleman who was transferred from [facility] for possible angina. He has a history [...] Further recommendations per Dr Emmanuel Ferro CNP [facility] Of note, this documentation is completed using the Kloudlessation system (voice recognition software). There may be [...] diffuse triple vessel disease, and transferred to [facility] for CABG eval -TTE here showed normal [...] Rate 66 BPM Atrial Rate 66 BPM UT Interval 144 ms QRS Duration 84 ms QT Interval 376 ms QTC Calculation(Bazett) 394 ms P Greenleaf 6 degrees R Greenleaf 24 degrees T Greenleaf -30 degrees QRS Count 11 beats Q [...] Tuesday per cardiology. Patient lives alone in [place], [place], states his sister and brother in law live next door, they are willing to assist, and he is open to home care or SNF, whichever will be needed. Patient has family nurse practitioner, Geovanny Merrill in [place], [place], he is with [facility], . Will continue to follow for further [...] Rate 76 BPM Atrial Rate 76 BPM UT Interval 142 ms QRS Duration 86 ms QT Interval 376 ms QTC Calculation(Bazett) 423 ms P Greenleaf 30 degrees R Greenleaf 24 degrees T Greenleaf -39 degrees QRS Count 12 beats Q [...] Date: 07/19/2023 Interpreted By: Hector Smith, STUDY: [facility] CAROTID ARTERY DUPLEX BILATERAL; 07/19/2023 2:38 pm INDICATION: Signs/Symptoms:pre-op CABG; r/o carotid stenosis. COMPARISON: None. ACCESSION NUMBER(S): [id number] ORDERING CLINICIAN: MARYANNE YOU TECHNIQUE: Vascular ultrasound [...] Hector Smith 07/19/2023 3:43 PM Dictation workstation: [id number] XR chest 2 views Result Date: 07/19/2023 Interpreted By: Hector Smith, STUDY: XR CHEST 2 VIEWS; 07/19/2023 2:08 pm INDICATION: Signs/Symptoms:pre-op CABG. COMPARISON: None. ACCESSION NUMBER(S): [id number] ORDERING CLINICIAN: MARYANNE YOU FINDINGS: CARDIOMEDIASTINAL SILHOUETTE: [...] Hector Smith 07/19/2023 3:41 PM Dictation workstation: [id number] Transthoracic Echo (TTE) Complete Result Date: 07/19/2023 [place] [id number] TRANSTHORACIC ECHOCARDIOGRAM REPORT Patient Name: ROBERT SMILEY Reading Physician: [id number] Dev Ding MD, [facility] Study Date: 07/19/2023 Ordering Provider: [id number] EDUARDO FERRO MRN/PID: [id number] Fellow: Nurse: Mendoza Dowd RN Date of /Age: 5 1960 / 62 years Pre Owned Sales Consultant: Chloé Lyman RDCS Gender: M Additional Staff: Height: 172.72 cm Admit Date: 07/18/2023 Weight: 105.69 kg Admission Status: Inpatient - Routine BSA / BMI: 2.18 m2 / 35.43 Department Location: [facility]/m2 Echo Lab Blood Pressure: 112 /58 mmHg Study Type: TRANSTHORACIC ECHO (TTE) COMPLETE Diagnosis/ICD: Encounter for preprocedural cardiovascular examination-Z01.810 Indication: PRE-OP CABG CPT Codes: Echo Complete w Full Doppler-29397 Patient History: Pertinent History: CAD, Hyperlipidemia and FL. Study Detail: The following Echo studies were [...] LA Area A2C: 15.3 cm2 LA Major Greenleaf A4C: 5.6 cm LA Major Greenleaf A2C: 4.9 cm LA Volume Index: 17.9 ml/m2 RA VOLUME BY A/L METHOD: Normal Ranges: RA Vol A4C: 33.3 ml (8.3-19.5ml) RA Vol Index A4C: 15.3 ml/m2 RA Area A4C: 13.7 cm2 RA Major Greenleaf A4C: 4.8 cm AORTA MEASUREMENTS: Normal Ranges: [...] 1.0 m/s (0.6-0.9m/s) PV Max P.7 mmHg [id number] Dev Ding MD, [facility] Electronically signed on 07/19/2023 at 2:33:[address] chest wo IV contrast Result Date: 07/19/2023 Interpreted By: Hector Smith, STUDY: CT CHEST WO IV CONTRAST; 07/19/2023 1:48 pm INDICATION: Signs/Symptoms:pre-op CABG; please assess ascending aorta for atherosclerosis and size. COMPARISON: None. ACCESSION NUMBER(S): [id number] ORDERING CLINICIAN: MARYANNE YOU TECHNIQUE: Contiguous unenhanced [...] Hector Sarah 07/19/2023 2:09 PM Dictation workstation: [id number] Assessment/Plan Principal Problem: Acute myocardial infarction due to left coronary artery occlusion (CMS/HCC) Active Problems: Hyperlipidemia Coronary artery disease of [place] artery of [place] heart with stable angina pectoris (CMS/HCC) Asperger's syndrome Elevated troponin CAD; NSTEMI Hx of CAD s/p PCI x2 (2016) maintained on Plavix since (last dose 07/18). Presented to OSH c/o midsternal CP that woke him from sleep. Ruled in as NSTEMI. Underwent coronary angiogram revealing diffuse TVD. Pt transferred to [facility] for consideration of surgical revascularization. -Discussed with [...] diffuse triple vessel disease, and transferred to [facility] for CABG eval -TTE here showed normal [...] Rate 76 BPM Atrial Rate 76 BPM UT Interval 142 ms QRS Duration 86 ms QT Interval 376 ms QTC Calculation(Bazett) 423 ms P Greenleaf 30 degrees R Greenleaf 24 degrees T Greenleaf -39 degrees QRS Count 12 beats Q Onset 220 ms P Onset 149 ms P Offset 204 ms T Offset 408 ms QTC Fredericia 406 ms Imaging: ECG 12 Lead Normal sinus rhythm Inferior infarct (cited on or before 19-JUL-2023) T wave abnormality, consider lateral ischemia Abnormal ECG When compared with ECG of 20-JUL-2023 06:47, No significant change was found [facility] Progress Note Rounding ANTONIO/Hydraulic Repairer: Eduardo Ferro, JESSICA-IRENA, Dr. Heraclio Benitez Primary Hydraulic Repairer: Dr Horton Date: 07/21/2023 Patient: Robert Smiley [...] at length he discussed at length wi [facility] Work Phone: 07-31-2023 Hospital course Narrative Discharge [...] triple vessel disease and was transferred to [facility] for consideration of CABG. He remained [...] IVP Lopressor. Repeat Amiodarone bolus given with mandaeism of sinus rhythm. Event discussed with Dr. Benitez who recommended increasing Metoprolol to TID. Pt had no recurrence of AFIB on daily PO Amiodarone and TID Metoprolol. He was discharged on this regimen with instruction to decrease Amiodarone to 200mg daily on August 01. The remainder of the post operative period was uneventful. [place], arterial line, central line, and chest tubes were removed sequentially. Epicardial wires were clipped at the skin by IT PROJECT MANAGER on 07/27 (resistance met with attempt to [...] Epicardial wires clipped at the skin by IT PROJECT MANAGER 07/27 Pulmonary: Effort: Pulmonary effort is normal. [...] appointments. CHRISTY Garcia documented in this encounter [facility] Work Phone: 07-29-2023 Nurse Note Pt to floor from SICU. Soren Mcgraw CNP made aware of change in patient's rhythm to atrial fib 130-150's. Stat EKG done and new orders received. Referral noted for Travel Administrator. Patient's HbA1C is 4.9. Patient is not [...] have pt's hearing aids. Report given to plate developerQUIRINO Avlia. Family at bedside and given patients belongings. documented in this encounter [facility] Work Phone: 07-29-2023 Consult note Associated Order (s): IP CONSULT TO NUTRITION SERVICES Nutrition Note: Nutrition Assessment Reason for Assessment: Admission nursing screening Patient is a 62 y.o. male presenting with acute FL. Nutrition History: Energy Intake: Good > 75 [...] Cardiothoracic Surgery Consult performed by: Maryanne You APRN-COMMUNICATION EQUIPMENT REPAIRER Consult ordered by: Attila Salgado MD Reason [...] triple vessel disease and was transferred to [facility] for consideration of CABG. 07/18: Pt [...] artery disease, Gout, Hyperlipidemia, and Myocardial infarct ([facility]/HCC). Surgical History He has a past surgical [...] Rate 66 BPM Atrial Rate 66 BPM UT Interval 132 ms QRS Duration 80 ms QT Interval 376 ms QTC Calculation(Bazett) 394 ms P Greenleaf 4 degrees R Greenleaf 18 degrees T Greenleaf -24 degrees QRS Count 11 beats Q [...] Date: 07/19/2023 Interpreted By: Hector Smith, STUDY: [facility] CAROTID ARTERY DUPLEX BILATERAL; 07/19/2023 2:38 pm INDICATION: Signs/Symptoms:pre-op CABG; r/o carotid stenosis. COMPARISON: None. ACCESSION NUMBER(S): [id number] ORDERING CLINICIAN: MARYANNE YOU TECHNIQUE: Vascular ultrasound [...] Hector Smith 07/19/2023 3:43 PM Dictation workstation: [id number] XR chest 2 views Result Date: 07/19/2023 Interpreted By: Hector Smith, STUDY: XR CHEST 2 VIEWS; 07/19/2023 2:08 pm INDICATION: Signs/Symptoms:pre-op CABG. COMPARISON: None. ACCESSION NUMBER(S): [id number] ORDERING CLINICIAN: MARYANNE YOU FINDINGS: CARDIOMEDIASTINAL SILHOUETTE: [...] Hector Smith 07/19/2023 3:41 PM Dictation workstation: [id number] Transthoracic Echo (TTE) Complete Result Date: 07/19/2023 [place] [id number] TRANSTHORACIC ECHOCARDIOGRAM REPORT Patient Name: ROBERT SMILEY Reading Physician: [id number] Dev Ding MD, [facility] Study Date: 07/19/2023 Ordering Provider: [id number] EDUARDO FERRO MRN/PID: [id number] Fellow: Nurse: Mendoza Dowd RN Date of /Age: 5 1960 / 62 years Pre Owned Sales Consultant: Chloé Lyman [facility] Gender: M Additional Staff: Height: 172.72 cm Admit Date: 07/18/2023 Weight: 105.69 kg Admission Status: Inpatient - Routine BSA / BMI: 2.18 m2 / 35.43 Department Location: [facility]/m2 Echo Lab Blood Pressure: 112 /58 mmHg Study Type: TRANSTHORACIC ECHO (TTE) COMPLETE Diagnosis/ICD: Encounter for preprocedural cardiovascular examination-Z01.810 Indication: PRE-OP CABG CPT Codes: Echo Complete w Full Doppler-52089 Patient History: Pertinent History: CAD, Hyperlipidemia and FL. Study Detail: The following Echo studies were [...] LA Area A2C: 15.3 cm2 LA Major Greenleaf A4C: 5.6 cm LA Major Greenleaf A2C: 4.9 cm LA Volume Index: 17.9 ml/m2 RA VOLUME BY A/L METHOD: Normal Ranges: RA Vol A4C: 33.3 ml (8.3-19.5ml) RA Vol Index A4C: 15.3 ml/m2 RA Area A4C: 13.7 cm2 RA Major Greenleaf A4C: 4.8 cm AORTA MEASUREMENTS: Normal Ranges: [...] 1.0 m/s (0.6-0.9m/s) PV Max P.7 mmHg [id number] Dev Ding MD, FACC Electronically signed on 07/19/2023 at 2:33:[address] chest wo IV contrast Result Date: 07/19/2023 Interpreted By: Hector Smith, STUDY: CT CHEST WO IV CONTRAST; 07/19/2023 1:48 pm INDICATION: Signs/Symptoms:pre-op CABG; please assess ascending aorta for atherosclerosis and size. COMPARISON: None. ACCESSION NUMBER(S): [id number] ORDERING CLINICIAN: MARYANNE YOU TECHNIQUE: Contiguous unenhanced [...] Hector Smith 07/19/2023 2:09 PM Dictation workstation: [id number] ECG 12 lead Result Date: 07/19/2023 Normal [...] angiogram revealing diffuse TVD. Pt transferred to [facility] for consideration of surgical revascularization. -Discussed with [...] medications at home but has not seen Hydraulic Repairer in many years -Statin daily -Metoprolol 25mg [...] 1960 Time of Consult: 8:30 AM Consulting Hydraulic Repairer: Dr. Heraclio Ferro APRN, CNP Primary Hydraulic Repairer: Dr Horton Referring Provider: Dr Salgado Admission Diagnosis: Acute myocardial infarction due to left coronary artery occlusion ([facility]) History of Present Illness: Robert Smiley is a 62 y.o. male patient who is being at the request of Dr. Salgado for inpatient consultation of angina. He was admitted on 07/19/2023. Previous [facility] and [facility] records have been reviewed in detail. Patient with a history of CAD, hypertension dyslipidemia was transferred from [facility] for CABG evaluation. On Tuesday the patient developed chest pain that radiated down his left arm along with chest pain he went to [facility] LAD 95% Circumflex 95% [...] occlusion (CMS/HCC) Hyperlipidemia Coronary artery disease of [place] artery of [place] heart with stable angina pectoris (CMS/HCC) Asperger's syndrome Elevated troponin Assessment: CAD triple-vessel disease Hypertension Dyslipidemia Plan: Tele monitoring Continue the heparin drip 2D echo Aspirin 81 daily Plavix 75 mg daily for now until seen by CT surgery Lipitor 40 mg daily Add Imdur 30 mg daily Daily EKGs Consult CT surgery for CABG evaluation Further recommendations per Dr Emmanuel Ferro CNP [facility] Of note, this documentation is completed using the Kloudlessation system (voice recognition software). There may be spelling and/or grammatical errors that were not corrected prior to final submission. Patient seen and examined in conjunction with Troy Ferro APRN and agree with the evaluation as noted above. 62-year-old gentleman who was transferred from [facility] for possible angina. He has a history [...] lipid-lowering therapy. AKA documented in this encounter [facility] Work Phone: 07-25-2023 History and physical note [facility] Critical Care Medicine Date: 07/25/2023 Patient: Robert [...] triple vessel disease and was transferred to [facility] for consideration of CABG. Admitted to ICU on 07/24 s/p: Creation Bypass Graft Coronary Artery X 4 (estes/lad, svg-cx-pda, svg-diag); MARCUS; EV 13911 - UT CABG W/ARTERIAL GRAFT TWO ARTERIAL GRAFTS Median [...] active skin problems Ethics/Code Status: Full Code Quality Assurance Representative: DVT Prophylaxis: hold for now GI Prophylaxis: ppi Bowel Regimen: npo Diet: defer CVC: rightIJ introducer with PA catheter [place]: yes Mac: yes Restraints: if needed until [...] triple vessel disease and was transferred to [facility] for consideration of CABG. 07/18: Pt [...] Rate 66 BPM Atrial Rate 66 BPM UT Interval 132 ms QRS Duration 80 ms QT Interval 376 ms QTC Calculation(Bazett) 394 ms P Greenleaf 4 degrees R Greenleaf 18 degrees T Greenleaf -24 degrees QRS Count 11 beats Q [...] Date: 07/19/2023 Interpreted By: Hector Smith, STUDY: [facility] CAROTID ARTERY DUPLEX BILATERAL; 07/19/2023 2:38 pm INDICATION: Signs/Symptoms:pre-op CABG; r/o carotid stenosis. COMPARISON: None. ACCESSION NUMBER(S): [id number] ORDERING CLINICIAN: MARYANNE YOU TECHNIQUE: Vascular ultrasound [...] Hector Smith 07/19/2023 3:43 PM Dictation workstation: [id number] XR chest 2 views Result Date: 07/19/2023 Interpreted By: Hector Smith, STUDY: XR CHEST 2 VIEWS; 07/19/2023 2:08 pm INDICATION: Signs/Symptoms:pre-op CABG. COMPARISON: None. ACCESSION NUMBER(S): [id number] ORDERING CLINICIAN: MARYANNE YOU FINDINGS: CARDIOMEDIASTINAL SILHOUETTE: [...] Hector Smith 07/19/2023 3:41 PM Dictation workstation: [id number] Transthoracic Echo (TTE) Complete Result Date: 07/19/2023 [place] [id number] TRANSTHORACIC ECHOCARDIOGRAM REPORT Patient Name: ROBERT SMILEY Reading Physician: [id number] Dev Ding MD, [facility] Study Date: 07/19/2023 Ordering Provider: [id number] EDUARDO FERRO MRN/PID: [id number] Fellow: Nurse: Mendoza Dowd RN Date of /Age: 5 1960 / 62 years Pre Owned Sales Consultant: Chloé Lyman RDCS Gender: M Additional Staff: Height: 172.72 cm Admit Date: 07/18/2023 Weight: 105.69 kg Admission Status: Inpatient - Routine BSA / BMI: 2.18 m2 / 35.43 Department Location: [place] [address] Echo Lab Blood Pressure: 112 /58 mmHg Study Type: TRANSTHORACIC ECHO (TTE) COMPLETE Diagnosis/ICD: Encounter for preprocedural cardiovascular examination-Z01.810 Indication: PRE-OP CABG CPT Codes: Echo Complete w Full Doppler-51896 Patient History: Pertinent History: CAD, Hyperlipidemia and FL. Study Detail: The following Echo studies were [...] LA Area A2C: 15.3 cm2 LA Major Greenleaf A4C: 5.6 cm LA Major Greenleaf A2C: 4.9 cm LA Volume Index: 17.9 ml/m2 RA VOLUME BY A/L METHOD: Normal Ranges: RA Vol A4C: 33.3 ml (8.3-19.5ml) RA Vol Index A4C: 15.3 ml/m2 RA Area A4C: 13.7 cm2 RA Major Greenleaf A4C: 4.8 cm AORTA MEASUREMENTS: Normal Ranges: [...] 1.0 m/s (0.6-0.9m/s) PV Max P.7 mmHg [id number] Dev Ding MD, FACC Electronically signed on 07/19/2023 at 2:33:[address] chest wo IV contrast Result Date: 07/19/2023 Interpreted By: Hector Smith, STUDY: CT CHEST WO IV CONTRAST; 07/19/2023 1:48 pm INDICATION: Signs/Symptoms:pre-op CABG; please assess ascending aorta for atherosclerosis and size. COMPARISON: None. ACCESSION NUMBER(S): [id number] ORDERING CLINICIAN: MARYANNE YOU TECHNIQUE: Contiguous unenhanced [...] Hector Smith 07/19/2023 2:09 PM Dictation workstation: [id number] ECG 12 lead Result Date: 07/19/2023 Normal [...] angiogram revealing diffuse TVD. Pt transferred to [facility] for consideration of surgical revascularization. -Discussed with Dr. Pekc at bedside -awaiting cath images from OSH [...] medications at home but has not seen Hydraulic Repairer in many years -Statin daily -Metoprolol 25mg BID -Imdur 30mg daily -optimize medical management as hemodynamics allow I spent 60 minutes in the professional and overall care of this patient. History Of Present Illness Robert Smiley is a 62 y.o. male who was transferred from [facility] for evaluation for CABG. Patient presented initially [...] Active Problems: Hyperlipidemia Coronary artery disease of [place] artery of [place] heart with stable angina pectoris (CMS/HCC) Asperger's [...] Anjum Nieto MD documented in this encounter [facility] Work Phone: 05-25-2023 Hospital Discharge instructions Patient [...] treatment? Where to find more information The [place] [employer]: www.cancer.org [place] [employer]: www.auanet.org Contact a health care [...] provider. Document Revised: 10/26/2021 Document Reviewed: 10/26/2021 [employer] Patient Education 2022 [employer] Follow Up Care 05/04/2023 11:32:51 With:Cora Lee MD, URL, URO Address: [address] [place] [address] [phone] When: Unknown Comments:1 yr w/ PSA [facility] 10-27-2022 Hospital Discharge instructions Follow Up Care 10/27/2022 10:03:28 With:Cora Lee MD, URL, URO Address: [address] [place] [address] [phone] When: Unknown [facility] 10-27-2022 Hospital Discharge instructions Patient Education [...] treatment? Where to find more information The [place] [employer]: www.cancer.org [place] [employer]: www.auanet.org Contact a health care [...] provider. Document Revised: 10/26/2021 Document Reviewed: 10/26/2021 [employer] Patient Education 2022 [employer] Follow Up Care 04/28/2022 12:57:05 With:Jesus ROD, OFELIA Friedman, URO Address: When: Unknown [facility] 04-28-2022 Hospital Discharge instructions Patient Education [...] if anything looks unusual. Men with a rhowzf-wnvp-mnhaug risk for skin cancer may want to see a hospital cleaning specialist (welding technician) for an annual body check. Where to find more information National Cancer [place]: https://www.cancer.gov/about-canc er/screening Centers for Disease Control and Prevention: https://www.cdc.gov/cancer/dcpc/p revention/screening.htm [place] [employer]: https://www.cancer.org/latest-new s/9-ggshvu-rzrngwyeo-stnim-uqj-xw n.html Contact a health care provider if: [...] 01/27/2017 Document Revised: 01/19/2019 Document Reviewed: 01/27/2017 [employer] Patient Education 2020 [employer]. Follow Up Care 12/23/2021 08:37:49 With:Jesus ROD, OFELIA Friedman, URO Address: When:6 months Comments:w/ PSA F/T [facility] 03-15-2022 History of Present illness Narrative [...] message documented in this encounter [facility] [employer] Work Phone: 03-15-2022 Hospital Discharge instructions Bianca [...] the healing period. The office number is [phone]. Take surgery bag and all eye drops to Dr. Phan's office tomorrow at 10:05am. You may resume your normal diet. Start your eye drops tomorrow after your post-op appointment: Ofloxacin/Polytrim one drop to the operated eye 4 times daily Prednisolone one drop to the operated eye 4 times daily documented in this encounter [facility] [employer] Work Phone: 12-23-2021 Hospital Discharge instructions Patient [...] urethra. Follow these instructions at home: Take tdce-nex-dbcjkdr and prescription medicines only as told by [...] 05/02/2006 Document Revised: 03/27/2019 Document Reviewed: 06/06/2017 [employer] Patient Education 2020 [employer]. Follow Up Care 12/18/2021 14:19:29 With:Jesus ROD, OFELIA Friedman, URO Address: When:Within 4 Month(s) Comments:PSA F/T [facility] 11-18-2021 Hospital Discharge instructions Patient Education [...] if anything looks unusual. Men with a zzusns-rwlg-knvrjw risk for skin cancer may want to see a hospital cleaning specialist (welding technician) for an annual body check. Where to find more information National Cancer [place]: https://www.cancer.gov/about-canc er/screening Centers for Disease Control and Prevention: https://www.cdc.gov/cancer/dcpc/p revention/screening.htm [place] [employer]: https://www.cancer.org/latest-new s/8-nrzexf-riuavcruq-nmvyi-wrf-kq n.html Contact a health care provider if: [...] 01/27/2017 Document Revised: 01/19/2019 Document Reviewed: 01/27/2017 [employer] Patient Education 2020 [employer]. Follow Up Care 09/14/2021 14:58:32 With:Jesus ROD, OFELIA Friedman, URO Address: When: Unknown [facility] 09-14-2021 Hospital Discharge instructions Patient Education [...] prostate. Follow these instructions at home: Take ycoj-smy-gmyxvlu and prescription medicines only as told by [...] 04/29/2001 Document Revised: 07/15/2018 Document Reviewed: 01/20/2017 [employer] Patient Education 2020 [employer]. Follow Up Care 09/08/2021 13:18:17 With:Cora Lee MD, URL, URO Address: [phone] When:10/26/2021 Comments:w/estee [facility] Evaluation + Plan note Future Appointments Appointment Date:11/18/2021 10:15:00 AM Scheduled Provider:Cora Lee MD Location:[facility] Appointment Type:URO Office Visit Diagnostic Tests PendingPSA Free & Total 09/14/21 [facility] Evaluation + Plan note Future Appointments Appointment Date:04/28/2022 10:15:00 AM Scheduled Provider:Cora Lee MD Location:[facility] Appointment Type:URO Office Visit Diagnostic Tests PendingPSA Free & Total 12/23/21 [facility] Evaluation + Plan note Future Appointments Appointment Date:10/27/2022 09:30:00 AM Scheduled Provider:Cora Lee MD Location:[facility] Appointment Type:URO Office Visit Diagnostic Tests PendingPSA Free & Total 04/28/22 [facility] Evaluation + Plan note Future Appointments Appointment Date:05/04/2023 09:45:00 AM Scheduled Provider:Cora Lee MD Location:[facility] Appointment Type:URO Office Visit Diagnostic Tests PendingPSA Free & Total 10/27/22 [facility] Evaluation + Plan note Future Appointments Appointment Date:05/25/2023 11:00:00 AM Scheduled Provider:Cora Lee MD Location:[facility] Appointment Type:URO Office Visit [facility] Evaluation + Plan note Future Appointments Appointment Date:05/30/2024 10:45:00 AM Scheduled Provider:Cora Lee MD Location:[facility] Appointment Type:URO Office Visit Diagnostic Tests PendingPSA Free & Total 05/25/23 [facility] Evaluation + Plan note Future Appointments Appointment Date:02/27/2025 10:45:00 AM Scheduled Provider:Cora Lee MD Location:[facility] Appointment Type:URO Office Visit [facility] Evaluation + Plan note Future Appointments Appointment Date:02/27/2025 10:45:00 AM Scheduled Provider:Jesus ROD, Cora Gupta Location:[facility] Appointment Type:URO Office Visit Diagnostic Tests PendingPSA Free & Total 11/28/24 [facility] Evaluation note No assessment inform ation available [facility] Work Phone: Evaluation note Diagnosis 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 Other and combined forms of senile cataract documented in this encounter [facility] Work Phone: evaluation note* Diagnosis Acute myocardial infarction due to left coronary artery occlusion (CMS/HCC)- Primary Acute myocardial infarction due to left coronary artery occlusion (CMS/HCC) Coronary artery disease of [place] artery of [place] heart with stable angina pectoris (CMS/HCC) Encounter for preprocedural cardiovascular examination Paroxysmal atrial fibrillation (CMS/HCC) Atrial fibrillation Acute post-operative pain Anemia due to blood loss Acute posthemorrhagic anemia Asperger's syndrome Other specified pervasive developmental disorders, current or active state Hyperlipidemia Other and unspecified hyperlipidemia Coronary artery disease of [place] artery of [place] heart with stable angina pectoris (CMS/HCC) Asperger's syndrome Other specified pervasive developmental disorders, current or active state Elevated troponin Other abnormal blood chemistry documented in this encounter [facility] Work Phone: Evaluation note* Diagnosis Shortness of breath Dizziness Dizziness and giddiness documented in this encounter [facility] Work Phone: Evaluation note* Diagnosis S/P CABG x 4 Postsurgical aortocoronary bypass status documented in this encounter [facility] Work Phone: Evaluation note* Diagnosis Pleural effusion- Primary Unspecified pleural effusion documented in this encounter [facility] Work Phone: Evaluation note* Diagnosis S/P CABG x 4 Postsurgical aortocoronary bypass status documented in this encounter [facility] Work Phone: Evaluation note* Diagnosis S/P CABG x 4 Postsurgical aortocoronary bypass status documented in this encounter [facility] Work Phone: Evaluation note* Diagnosis Multi-vessel coronary artery stenosis- Primary High risk medication use Mixed hyperlipidemia Persistent atrial fibrillation (Multi) Atrial fibrillation Anticoagulated Encounter for long-term (current) use of anticoagulants Pleural effusion Unspecified pleural effusion documented in this encounter [facility] Work Phone: Evaluation note* Diagnosis Multi-vessel coronary artery stenosis- Primary Mixed hyperlipidemia Postoperative atrial fibrillation (Multi) BMI 32.0-32.9,adult Coronary artery disease of [place] artery of [place] heart with stable angina pectoris documented in this encounter [facility] Work Phone: Evaluation note* Diagnosis Multi-vessel coronary artery stenosis Mixed hyperlipidemia Postoperative atrial fibrillation (Multi) documented in this encounter [facility] Work Phone: Evaluation note* Diagnosis Multi-vessel coronary artery stenosis- Primary Postoperative atrial fibrillation (Multi) Mixed hyperlipidemia BMI 34.0-34.9,adult Never smoked tobacco Coronary artery disease of [place] artery of [place] heart with stable angina pectoris documented in this encounter [facility] Work Phone: Hospital course Narrative No data available for this section [facility] Hospital Discharge instructions No data available for this section [facility] progress note No data available for this section [facility] reason for referral (narrative)* Consultation (Routine) - Authorized Specialty Diagnoses / Procedures Referred By Contac t Referred To Contact Diagnoses Coronary artery disease of [place] artery of [place] heart with stable angina pectoris (CMS/HCC) Paroxysmal atrial fibrillation (CMS/HCC) Asperger's syndrome Maryanne You, TRIAL MANAGEMENT ASSOCIATE-COMMUNICATION EQUIPMENT REPAIRER [address] [address] Referral ID Status Reason Start Date Expiration Date Visits Requested Visits Authorized [id number] Authorized Specialty Services Required 07/31/2023 07/30/2024 1 1 * Home Health (Routine) - Authorized Specialty Diagnoses / Procedures Referred By Contac t Referred To Contact Home Health Services Diagnoses Coronary artery disease of [place] artery of [place] heart with stable angina pectoris (CMS/HCC) Paroxysmal atrial fibrillation (CMS/HCC) Acute post-operative pain Maryanne You APRN-CNP [address] [place] [address] Referral ID Status Reason Start Date Expiration Date Visits Requested Visits Authorized [id number] Authorized Specialty Services Required 07/30/2023 07/29/[phone] [facility] Work Phone: Rezaiv for referral (narrative)* Consultation (Routine) - Authorized Specialty Diagnoses / Procedures Referred By Contac t Referred To Contact Cardiac Rehabilitation Diagnoses Multi-vessel coronary artery stenosis Leonard Ramirez MD [address] [facility] 2, [address] [place] [address] Referral ID Status Reason Start Date Expiration Date Visits Requested Visits Authorized [id number] Authorized Specialty Services Required 09/09/2023 09/08/2024 1 1 * Cardiovascular (Routine) - Authorized Specialty Diagnoses / Procedures Referred By Contac t Referred To Contact Diagnoses Persistent atrial fibrillation (Multi) Procedures ECG 12 Lead Leonard Ramirez MD [address] [facility], [address] [place] [address] Referral ID Status Reason Start Date Expiration Date V isits Requested Visits Authorized [id number] Authorized 09/09/2023 09/08/2024 1 1 * Consultation (Routine) - Authorized Specialty Diagnoses / Procedures Referred By Contac t Referred To Contact Cardiology Diagnoses Multi-vessel coronary artery stenosis Procedures Follow Up In Cardiology Leonard Ramirez MD [facility] [facility] 2, [address] [address] Leonard Ramirez MD [facility] [facility] [address], [address] [address] Referral ID Status Reason Start Date Expiration Date V isits Requested Visits Authorized [id number] Authorized 09/09/2023 09/08/2024 1 1 [facility] Work Phone: Reason for visit Narrative* CV Imaging (Routine) - Authorized Specialty Diagnoses / Procedures Referred By Contac t Referred To Contact Cardiology Diagnoses Multi-vessel coronary artery stenosis Mixed hyperlipidemia Postoperative atrial fibrillation (Multi) Procedures Transthoracic Echo Complete UT ECHO TTHRC R-T 2D W/WOM-MODE COMPL SPEC&COLR D Leonard Ramirez MD [address] [facility] [address], [address] [address] Phone: tel: fax: Referral ID Status Reason Start Date Expiration Date Visits Requested Visits Authorized [id number] Authorized Perform Procedure 4 03/14/2025 1 1 [facility] Work Phone: Summary Purpose Family History No [...] Documents on File Type Date Recorded 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 Healthcare Power of Atty 08/01/2023 Living Will 08/01/2023 Latest Code Status on File Code Status Date Activated Date Inactivated Comments Full Code 07/19/2023 5:46 AM Question Answer Comments Plan of Care: Code Status Discussion Completed Decision Maker: Patient Documents on File Type Date Recorded 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 Healthcare Power of Atty 08/01/2023 [...] XR chest 2 [place] [address] [facility] [place] [address] Referral ID Status Reason Start Date Expiration Date Visits Requested Visits Authorized [id number] Authorized Perform Procedure 08/22/2023 08/21/2024 1 1 Additional Source Comments (unrecognized sect ion and content) No Status Records FoundNo Status Records FoundNo Status Records FoundNo Status Records FoundNo Status Records FoundNo Status Records FoundNo Status Records FoundNo Status Records Found INFORMATION SOURCE (unrecogn ized section and content) DATE CREATED AUTHOR 02/25/2019 [facility] DATE CREATED AUTHOR AUTHOR'S ORGANIZ ATION 03/15/2022 [facility] DATE CREATED AUTHOR AUTHOR'S ORGANIZ ATION 07/20/2022 [facility] DATE CREATED AUTHOR AUTHOR'S ORGANIZ ATION 07/31/2023 [facility] DATE CREATED AUTHOR AUTHOR'S ORGANIZ ATION 08/11/2023 [facility] DATE CREATED AUTHOR AUTHOR'S ORGANIZ ATION 10/23/2024 [facility] DATE CREATED AUTHOR AUTHOR'S ORGANIZ ATION 11/29/2024 [facility] DATE CREATED AUTHOR AUTHOR'S ORGANIZ ATION 12/01/2024 [facility] Hatchery Worker Team (unrecognized sect ion and content) Team Status: Inactive Member Role Status Dates Daniele Hernandez DO Primary Care Provider Active Cora Lee MD Attending Provider Active Team Status: Active Member Role Status Dates Daniele Hernandez , Primary Care Provider Active Aircraft Maintenance Director Relationship Specialty Start Date End Date Trace, Sr Daniele Levy, [address] [place] [address] PCP - General Family Medicine 03/10/22 Aircraft Maintenance Director Relationship Specialty Start Date End Date Generic Provider, [place] [address] PCP - General Executive Pilot 08/25/23 Aircraft Maintenance Director Relationship Specialty Start Date End Date Generic Provider, [place] [address] PCP - General Executive Pilot 08/25/23 Aircraft Maintenance Director Relationship Specialty Start Date End Date Generic Provider, [place] [address] PCP - General Executive Pilot 08/25/23 Aircraft Maintenance Director Relationship Specialty Start Date End Date Generic Provider, [place] [address] PCP - General Executive Pilot 08/25/23 Aircraft Maintenance Director Relationship Specialty Start Date End Date Generic Provider, [place] [address] PCP - General Executive Pilot 08/25/23 Aircraft Maintenance Director Relationship Specialty Start Date End Date Generic Provider, [place] [address] PCP - General Executive Pilot 08/25/23 Aircraft Maintenance Director Relationship Specialty Start Date End Date Nohemy Mills, TRIAL MANAGEMENT ASSOCIATE-COMMUNICATION EQUIPMENT REPAIRER [address] [place] [address] PCP - General Family Medicine 11/21/24 Goals (unrecognized section and content) Goals may be documented in a n alternate section Reason for Visit (unrecogniz ed section and content) Specialty Diagnoses / Procedures Referred By Contac t Referred To Contact Diagnoses Combined forms of age-related cataract of right eye COMBINED FORMS OF AGE RELATED CAT 1+NS, 3+PSC, 2+CS Procedures UT XCAPSL CTRC RMVL INSJ IO LENS PROSTH W/O ECP EYE CATARACT EMULSIFICATION IOL IMPLANT Bianca Phan, DO [address] [place] [address] [facility] [address] [place] [address] Referral ID Status Reason Start Date Expiration Date Visits Re quested Visits Authorized [id number] 1 1 Specialty Diagnoses / Procedures Referred By Joaquin mckeon Referred To Contact Diagnoses 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 [address] [place] [address] Referral ID Status Reason Start Date Expiration Date Visits Re quested Visits Authorized [id number] 1 1 Reason Comments Blood Pressure Check Specialty Diagnoses / Procedures Referred By Joaquin mckeon Referred To Contact Diagnoses Shortness of breath Dizziness Procedures ECG 12 Lead Leonard Ramirez MD [facility] [facility] [address], [address] [address] Referral ID Status Reason Start Date Expiration Date V isits Requested Visits Authorized [id number] Authorized 08/16/2023 08/15/2024 1 1 Specialty Diagnoses / Procedures Referred By Joaquin mckeon Referred To Contact Radiology Diagnoses S/P CABG x 4 Procedures XR chest 2 [place] [address] [facility] Department [place] [address] Referral ID Status Reason Start Date Expiration Date Visits Requested Visits Authorized [id number] Authorized Perform Procedure 08/22/2023 08/21/2024 1 1 Reason Comments Post-op Open Heart Surgery Reason Comments Post-op Visit Reason Comments New Patient Visit Follow up s/p CABG a t [facility] 3-17-24 Specialty Diagnoses / Procedures Referred By Contac t Referred To Contact Diagnoses Persistent atrial fibrillation (Multi) Procedures ECG 12 Lead Leonard Ramirez MD [address] [place] [address] [address], [address] [address] Referral ID Status Reason Start Date Expiration Date V isits Requested Visits Authorized [id number] Authorized 09/09/2023 09/08/2024 1 1 Reason Comments Follow-up 6 months Specialty Diagnoses / Procedures Referred By Joaquin t Referred To Contact Cardiology Diagnoses Multi-vessel coronary artery stenosis Procedures Follow Up In Cardiology [facility], [address] [address] Phone: tel: fax: Leonard Ramirez MD [facility] 2, [address] [address] Phone: tel: fax: Referral ID Status Reason Start Date Expiration Date V isits Requested Visits Authorized [id number] Authorized 09/09/2023 09/08/2024 1 1 Reason Comments Follow-up Patient here for 9 m [facility] follow up for coronary artery stenosis, denies cardiac c/o at this time. Specialty Diagnoses / Procedures Referred By Joaquin t Referred To Contact Cardiology Diagnoses Multi-vessel coronary artery stenosis Procedures Follow Up In Cardiology Leonard Ramirez MD [address] [address] Phone: tel: fax: Leonard Ramirez MD [address] [place] [address] [address], [address] [address] Phone: tel: fax: Referral ID Status Reason Start Date Expiration Date V isits Requested Visits Authorized [id number] Authorized 03/14/2024 03/14/2025 1 1 Scheduled Active [...] minutes, starting 30 minutes prior to surgery, [facility] - enter number of doses based on [...] Orders)191 ([facility] Unhold - Provider: Maryanne You APRN-COMMUNICATION EQUIPMENT REPAIRER) iron polysaccharides (Nu-Iron,Niferex) capsule 150 mg 150 [...] Transfer Provider - Reason: Unreviewed Transfer Orders)1916 ([facility] Unhold - Provider: Israel Carlos RN) 0900 [...] scores based on patient preference? Yes 172 ([facility] Hold - Provider: Automatic Transfer Provider - Reason: Unreviewed Transfer Orders)1916 ([facility] Unhold - Provider: Israel Carlos, QUIRINO)2104 (Given - Provider: Israel Carlos, RN) 123 (Given - Provider: Elaina Mckeon, QUIRINO)2052 (Given - Provider: Juanita Yang, QUIRINO) alum-mag hydroxide-simeth (Mylanta) 200-200-20 mg/5 mL oral suspension 5 mL 5 mL, oral, 4 times daily PRN, indigestion, heartburn, Starting on Tamika 07/21/23 at 0822 172 ([facility] Hold - Provider: Automatic Transfer Provider - Reason: Unreviewed Transfer Orders)1916 ([facility] Unhold - Provider: Israel Carlos, QUIRINO) bisacodyl (Dulcolax) suppository 10 mg 10 mg, rectal, Daily PRN, constipation, second line, Starting on Tue07/25/23 at 1355, 2nd line for treatment of constipation - contact provider if no bowel movement in past 48 hours. 172 ([facility] Hold - Provider: Automatic Transfer Provider - Reason: Unreviewed Transfer Orders)1916 ([facility] Unhold - Provider: Israel Carlos, QUIRINO) dextrose [...] 100 mg/dL or greater, then DISCONTINUE. 172 ([facility] Hold - Provider: Automatic Transfer Provider - Reason: Unreviewed Transfer Orders)1916 ([facility] Unhold - Provider: Israel Carlos, QUIRINO) glucagon [...] 100 mg/dL or greater, then DISCONTINUE. 172 ([facility] Hold - Provider: Automatic Transfer Provider - Reason: Unreviewed Transfer Orders)1916 ([facility] Unhold - Provider: Israel Carlos RN) ipratropium-albuteroL (Duo-Neb) 0.5-2.5 mg/3 mL nebulizer solution 3 mL 3 mL, nebulization, Every 6 hours PRN, wheezing, Starting on Tue07/25/23 at 1355 1721 ([facility] Hold - Provider: Automatic Transfer Provider - Reason: Unreviewed Transfer Orders)1916 ([facility] Unhold - Provider: Israel Carlos RN) magnesium sulfate IV 2 g 2 g, intravenous, at 25 mL/hr, Administer over 2 Hours, Every 6 hours PRN, magnesium level 1.7-1.9 mg/dL, Starting on Tue07/25/23 at 1355 1721 ([facility] Hold - Provider: Automatic Transfer Provider - Reason: Unreviewed Transfer Orders)1916 ([facility] Unhold - Provider: Israel Carlos RN) magnesium sulfate IV 4 g 4 g, intravenous, at 25 mL/hr, Administer over 4 Hours, Every 6 hours PRN, magnesium level 1.4 - 1.6 mg/dL, Starting on Tue07/25/23 at 1355 1721 ([facility] Hold - Provider: Automatic Transfer Provider - Reason: Unreviewed Transfer Orders)1916 ([facility] Unhold - Provider: Israel Carlos RN) melatonin tablet 3 mg 3 mg, oral, Nightly PRN, sleep, Starting on Tue07/19/23 at 0546 172 ([facility] Hold - Provider: Automatic Transfer Provider - Reason: Unreviewed Transfer Orders)1916 ([facility] Unhold - Provider: Israel Carlos, QUIRINO) metoclopramide (Reglan) injection 10 mg(Linked Group 3) 10 mg, intravenous, Every 6 hours PRN, nausea/vomiting, first line, Starting on Tue07/25/23 at 1355, Give IV if patient is unable to take orally. 172 ([facility] Hold - Provider: Automatic Transfer Provider - Reason: Unreviewed Transfer Orders)1916 ([facility] Unhold - Provider: Israel Carlos RN) metoclopramide (Reglan) tablet 10 mg(Linked Group 3) 10 mg, oral, Every 6 hours PRN, nausea/vomiting, first line, Starting on Tue07/25/23 at 1355, 1st Line. If inadequate response within 60 minutes, proceed to next-line agent or contact provider if no further options ordered. 172 ([facility] Hold - Provider: Automatic Transfer Provider - Reason: Unreviewed Transfer Orders)1916 ([facility] Unhold - Provider: Israel Carlos RN) naloxone (Narcan) injection 0.2 mg 0.2 mg, intravenous, Every 5 min PRN, respiratory depression, Starting on Tue07/25/23 at 1355, If respiratory rate is less than 8 breaths/minute or patient is difficult to arouse stop any narcotics and contact physician. Administer slow IV push. Repeat as ordered until patient's respiratory rate is greater than 12 breaths/minute. 172 ([facility] Hold - Provider: Automatic Transfer Provider - Reason: Unreviewed Transfer Orders)1916 ([facility] Unhold - Provider: Israel Carlos, QUIRINO) oxyCODONE (Roxicodone) immediate release tablet 5 mg 5 mg, oral, Every 4 hours PRN, pain moderate (4-6), first line, Starting on Tue07/25/23 at 1355, If ordered PRN for pain, nurse is permitted to administer this medication for higher pain scores based on patient preference? Yes 172 ([facility] Hold - Provider: Automatic Transfer Provider - Reason: Unreviewed Transfer Orders)1916 ([facility] Unhold - Provider: Israel Carlos RN) oxygen [...] irritation. Do not crush or chew. 1720 ([facility] Hold - Provider: Automatic Transfer Provider - Reason: Unreviewed Transfer Orders)1916 ([facility] Unhold - Provider: Israel Carlos RN) potassium chloride CR (Klor-Con M20) ER tablet 40 mEq 40 mEq, oral, Every 6 hours PRN, Potassium level 3.7 mmol/L or less, Starting on Tue07/26/23 at 1031, Best given with food and a glass of water to minimize gastric irritation. Do not crush or chew. 1720 ([facility] Hold - Provider: Automatic Transfer Provider - Reason: Unreviewed Transfer Orders)1916 ([facility] Unhold - Provider: Israel Carlos RN) Linked [...] BE BASED ON THE PRIMARY CLINICAL RECORDS. [facility]. provides no warranty or guarantee of the accuracy or completeness of information in this document.
[2025-02-19 13:05] LABS: Cholesterol 210 mg/dL (<=200); HDL Cholesterol 63 mg/dL (40-60); Triglycerides 68 mg/dL (<=150); VLDL CHOLESTEROL 13.6 mg/dL
== END 2025-02-19 12:06 | disposition home or self-care (01) ==
PROVIDERS: Visit Provider Internal Medicine Cardiovascular Disease
DX: E78.2 Mixed hyperlipidemia (principal)
CPT/HCPCS: 36415; 80061